=== PATIENT | female | born 1970 | race Hispanic/Latino ===

== ENCOUNTER 2024-07-17 17:39 | Inpatient (IN) | payer OTHER ==
--- OUTSIDE RECORDS SUMMARY | 2024-07-17 17:47 | XMS REPORT | Continuity of Care Document ---
Author Name Unknown Address [address] [facility] [address] [place] [address] [facility] thconnect Address [address] [facility] [address] [place] [address] Care Team Providers Care Cordwood Cutter Name Role Phone Alexis CONNORDanica Primary Care Physician EUNICE TRENT Attending Clinician Unavailable YOHANA MANDUJANO Attending Clinician Unavailab EUGENIO Crews Attending Clinician Unavailable 39, HOLTER Attending Clinician Unavailable ILANA MENENDEZ Attending Clinician Unavailable PADILLA RODRIGUEZ Attending Clinician Unavailable ALEX Attending Clinician Unavailable LAB39 Attending Clinician Unavailable LAB90 Attending Clinician Unavailable PROVIDER, CAMPAIGNS Attending Clinician Unavaila Garrett Gamez Attending Clinician Unavailable ANDRÉS POWERS Attending Clinician Unavailable KLEVER ELLER Attending Clinician Unavailabl KLEVER Leonardo Attending Clinician Unavailabl e Doctor Unassigned, [place] Attending Clinician U JULEE Hylton Attending Clinician Unavailable CHEYENNE BOJORQUEZ Attending Clinician Unavailable Cheyenne Bojorquez MD Attending Clinician [phone] Unknown, Attending Attending Clinician Unavailab Yanni Murry Attending Clinician U mady Gilbert RN, Hawk Bullock Attending Clinician Unavailable Viviane Troncoso RN Attending Clinician [phone] Radu PT, Natalie T Attending Clinician Unavail able Klever Eller MD Attending Clinician [phone] KLEVER ELLER Attending Clinician Unavaila tiffany Garcia OT, Mag A Attending Clinician Unavail able Klever Retana Attending Clinician [phone] RACQUEL WOODS Attending Clinician Un available Jaqueline Asif LVN Attending Clinician [phone] ROHIT NORIEGA Attending Clinician Unavailable Andrés Ni MD Attending Clinician + [phone] Rohit Noriega MD Attending Clinician [phone] WALESKA GALLARDO Attending Clinician Unavail able Vee Sanchez MD Attending Clinician [phone] Pgy2 Attending Clinician Unavailable Nyasia Poole MD Attending Clinician + [phone] NYASIA POOLE Attending Clinician Unavaila tiffany Pcp, Patient Does Not Have A Attending Clinician FELIPE MCMAHON Attending Clinician Unavailable Hawk Hendrix MD Attending Clinician + Felipe Mcmahon MD Attending Clinician [phone] Provider, [facility] Attending Clinician Unavailable Danny Betancur MD Attending Clinician [phone] Heike Whitt Attending Clinician [phone] Rona Guadarrama MD Attending Clinician Juany Zambrano RN Attending Clinician Unavailable [facility] Attending Clinician Unav ailable Yohana Cristobal Attending Clinician [phone] YOHANA YAP Attending Clinician Unavailable Garrett Rhodes Admitting Clinician Unavailable JULEE NINO Admitting Clinician Unavailable RACQUEL WOODS Admitting Clinician Un available ROHIT NORIEGA Admitting Clinician Unavailable Rohit Noriega MD Admitting Clinician HAWK HENDRIX Admitting Clinician Unav ailable Payers Payer Name Policy Type Policy Number Effective Date Expirati on Date Source [facility] ALIA-SEANAHI SILVER-C COPAY FOCUS 9 [id number] 2023 00:00:00 [employer] OUT OF NETWORK [id number] 2023 00:00:00 MEDICAID 365 VENDOR [id number] 2022 00:00:00 2022 00:00:00 Problems Condition Name Condition Details Condition Category Status Onset Date Resolution Date Last Treatment Date Treating Clinician Comments Source Headache Headache Disease Active 2023-10 00:00: 00 Alia Seybold - Externa l Fall Fall Disease Active 2023-10 00:00: 00 Alia Seybold - Externa l Confusion Confusion Disease Active 2023-10 00:00: 00 Alia Seybold - Externa l Type 2 diabetes mellitus without complicati on, with long-term current use of insulin (multi HCC) Type 2 diabetes mellitus without complicati on, with long-term current use of insulin (multi HCC) Disease Active 06-05 00:00: 00 Alia Seybold - Externa l 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 (multi HCC) 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 (multi HCC) Disease Active 06-05 00:00: 00 Alia Seybold - Externa l PAD (periphera l artery disease) PAD (periphera l artery disease) Disease Active 06-05 00:00: 00 Alia Seybold - Externa l Right sided weakness Right sided weakness Disease Active 03-30 00:00: 00 [facility] Decreased functional activity tolerance Decreased functional activity tolerance Disease Active 03-30 00:00: 00 [facility] Acute ischemic left ERA stroke Acute ischemic left ERA stroke Disease Active 03-03 00:00: 00 [facility] Received intravenou s tissue plasminoge n activator (tPA) in emergency department Received intravenou s tissue plasminoge n activator (tPA) in emergency department Disease Active 03-03 00:00: 00 [facility] Type 2 diabetes mellitus with hyperglyce suzi, with long-term current use of insulin Type 2 diabetes mellitus with hyperglyce suzi, with long-term current use of insulin Disease Recurre nce 03-03 00:00: 00 [facility] Diabetic neuropathy Diabetic neuropathy Disease Active [facility] Diabetes mellitus type 2 with neurologic al manifestat ions Diabetes mellitus type 2 with neurologic al manifestat ions Disease Active [facility] Allergies, Adverse Reactions, Alerts Allergy Name Allergy Type Status Severity Reaction(s) Onset Date Inactive Date Treating Clinician Comments Source No Known Allergie s DA Active U 05-28 00:00: 00 [facility] NO KNOWN ALLERGIE S Drug Class Active [facility] Social History Social Habit Start Date Stop Date Quantity Comments Source Sexual orientation K eloina Hart - External ASSERTION Not Alia Hart - External Gender identity [facility] History of Social function 2024-07-17 00:00:00 2024-07-17 00:00:00 Alia Hart - External Tobacco use and exposure 2024-06-05 00:00:00 2024-06-05 00:00:00 Smokeless tobacco non-user Alia Hart - External Sex 2022-12-28 21:31:51 2022-12-28 21:31:51 Female (finding) Alia Hart - External Exposure to SARS-CoV-2 (event) 2022-03-11 00:00:00 2022-03-21 15:59:00 Not sure [facility] Sex assigned at 1970 00:00:00 1970 00:00:00 Alia Hart - External Smoking Status Start Date Stop Date Source Never smoked tobacco Alia Hart - External Medications Ordered Medication Name Filled Medication Name Start Date Stop Date Current Medication? Ordering Clinician Indication Dosage Frequency Signature (SIG) Comments Components Source Insulin Aspart (NOVOLOG IJ) 2023-10 16:21: 41 Yes 10U QD Inject 10 units into the skin daily. Alia maza Aspirin 81 MG oral Capsule 2023-10 16:21: 41 Yes 539 81mg QD Take 81 mg by mouth daily. Indication s: Temporary Stroke Alia maza Rosuvastati n Calcium (Crestor) 20 MG oral Tablet 2023-10 00:00: 00 Yes 20mg QD Take 1 tablet (20 mg total) by mouth daily. Alia Cisneros l Insulin Aspart (NOVOLOG IJ) 06-28 08:35: 11 Yes 10U QD Inject 10 units into the skin daily. Alia maza Aspirin 81 MG oral Capsule 06-28 08:35: 11 Yes 539 81mg QD Take 81 mg by mouth daily. Indication s: Temporary Stroke Alia maza Insulin Aspart (NOVOLOG IJ) 06-14 13:31: 06 Yes 10U QD Inject 10 units into the skin daily. Alia maza Aspirin 81 MG oral Capsule 06-14 13:31: 06 Yes 539 81mg QD Take 81 mg by mouth daily. Indication s: Temporary Stroke Alia Cisneros l glyBURIDE 5 MG oral Tablet 06-10 00:00: 00 Yes [id number] 5mg QD Take 1 tablet (5 mg total) by mouth daily. Alia maza Aspirin 81 MG oral Capsule 06-05 10:37: 49 Yes 539 81mg QD Take 81 mg by mouth daily. Indication s: Temporary Stroke Alia Lozanoa l Insulin Aspart (NOVOLOG IJ) 06-05 10:20: 45 Yes 10U QD Inject 10 units into the skin daily. Alia maza Rosuvastati n Calcium (Crestor) 20 MG oral Tablet 06-05 00:00: 00 Yes 20mg QD Take 1 tablet (20 mg total) by mouth daily. Alia Lozanoa l Metformin HCl 1000 MG oral Tablet 24 00:00: 00 Yes 1000mg Q.5D Take 1 tablet (1,000 mg total) by mouth 2 times daily. Alia Hailey maza Cephalexin 500 MG oral Capsule 816 00:00: 00 06-05 00:00 :00 No Alia maza metformin 1,000 mg tablet 13 00:00: 00 Yes 1mg Andrés Christian glyBURIDE 2.5 MG oral Tablet 05-10 00:00: 00 Yes 2.5mg QD Take 1 tablet (2.5 mg total) by mouth daily. Alia maza Gabapentin 100 MG oral Capsule 05-09 00:00: 00 Yes 100mg [id number] 3D Take 1 capsule (100 mg total) by mouth 3 times daily. Alia maza glyburide 2.5 mg tablet 05-09 00:00: 00 Yes 1mg Andrés Christian metformin 1,000 mg tablet 05-09 00:00: 00 Yes 1mg Andrés Christian cephalexin 500 mg tablet 05-09 00:00: 00 Yes 1mg Andrés Christian gabapentin 100 mg capsule 05-09 00:00: 00 Yes 1mg Andrés Christian Ondansetron (ZOFRAN) 4 MG oral TABLET DISPERSIBLE 2022-10 00:00: 00 Yes 4mg Q4H Take 1 tablet (4 mg total) by mouth every 4 hours as needed. Alia Hailey maza TAKE 1 TABLET BY MOUTH EVERY 6 (SIX) HOURS NEEDED FOR PAIN (SCALE 4-6) FOR UP TO 7 DAYS 2022-10 00:00: 00 Yes Andrés Christian NAPROXEN 500MG 2022-10 00:00: 00 Yes Andrés Christian TAKE 1 TABLET BY MOUTH EVERY 4 HOURS NEEDED FOR NAUSEA AND VOMITING . 2022-10 00:00: 00 Yes Andrés Christian TAKE 1 CAPSULE 3 TIMES DAILY. 2022-10 00:00: 00 12-20 00:00 :00 No 100 Andrés Christian TAKE 1 TABLET BID NEEDED 2022-10 00:00: 00 12-20 00:00 :00 No 600 Andrés Christian TAKE 1 TABLET TWICE A DAY NEEDED 2022-10 00:00: 00 12-20 00:00 :00 No 500 Andrés Christian AMOXICILLIN 500MG 06-08 00:00: 00 Yes Andrés Christian APAP/CODEIN E 300-30MG 06-08 00:00: 00 Yes Andrés Christian PAXLOVID 924-101 3308-0 8-23 00:00: 00 Yes Andrés Christian ONDANSETRON 8MG 05-24 00:00: 00 Yes 8000 Andrés Christian nirmatrelvi r-ritonavir (PAXLOVID) 300 mg (150 mg x 2)-100 mg tablet 05-24 00:00: 00 Yes [id number] 3{tbl} Take 3 tablets by mouth in the morning and 3 tablets in the evening. [facility] ondansetron (ZOFRAN) 8 mg tablet 05-24 00:00: 00 Yes [id number] 8mg Take 1 tablet by mouth every 12 (twelve) hours. [facility] TAKE 3 TABLETS BY MOUTH IN THE MORNING AND 3 TABLETS IN THE EVENING. 12-22 00:00: 00 Yes Andrés Christian TAKE 1 TABLET DAILY. 05-27 00:00: 00 Yes Andrés Christian 10 units in the morning 8 units in the afternoon 05-27 00:00: 00 Yes 100 Andrés Christian 1 po qd 05-27 00:00: 00 Yes 30 Andrés Christian 1 po qd 05-27 00:00: 00 Yes 40 Andrés Christian pioglitazon e 30 mg tablet 03-09 00:00: 00 09-06 05:59 :00 No [id number] 30mg Take 1 tablet by mouth daily for 180 days. [facility] pioglitazon e (ACTOS) tablet 30 mg 03-08 14:00: 00 Yes 30mg 30 mg, Oral, DAILY, First dose on Mon03/08/22 at 0900, Until Discontinu ed, Routine [facility] insulin NPH (HUMULIN N) injection 12 Units 03-08 14:00: 00 Yes 12U 12 Units, Subcutaneo us, QAM, First dose (after last modificati on) on Mon03/08/22 at 0900, Until Discontinu ed, Routine [facility] aspirin 81 mg chewable tablet 03-08 00:00: 00 09-05 05:59 :00 No [id number] 81mg Take 1 tablet by mouth daily for 180 days. [facility] atorvastati n 40 mg tablet 03-08 00:00: 00 09-05 05:59 :00 No [id number] 40mg Take 1 tablet by mouth at bedtime for 180 days. [facility] metformin ER 500 mg 24 hr tablet 03-08 00:00: 00 09-05 05:59 :00 No [id number] 500mg Take 1 tablet by mouth daily with breakfast for 180 days. [facility] insulin NPH 100 unit/mL injection 03-08 00:00: 00 09-05 05:59 :00 No [id number] 10U inject 10 Units under the skin daily before breakfast for 180 days. [facility] insulin NPH (HUMULIN N) injection 10 Units 03-07 22:00: 00 Yes 10U 10 Units, Subcutaneo us, DAILY AT 1700, First dose (after last modificati on) on Mon03/07/22 at 1700, Until Discontinu ed, Routine [facility] insulin lispro (human) (HumaLOG U-100) injection 4 Units 03-07 22:00: 00 03-07 21:28 :00 No 4U 4 Units, Subcutaneo us, TID MEALS, 1 dose, First dose (after last modificati on) on Mon03/07/22 at 1700, Routine [facility] Sliding Scale Insulin - Lispro (HumaLOG) + Fsbg Testing 03-07 17:00: 00 Yes Subcutaneo us, TID MEALS+HS, First dose (after last modificati on) on 03/07/22 at 1200, Until Discontinu ed, Routine [facility] insulin NPH (HUMULIN N) injection 13 Units 03-07 14:00: 00 03-07 19:00 :06 No 13U 13 Units, Subcutaneo us, QAM, First dose (after last modificati on) on 03/07/22 at 0900, Until Discontinu ed, Routine [facility] insulin NPH (HUMULIN N) injection 12 Units 03-06 22:00: 00 03-07 19:00 :06 No 12U 12 Units, Subcutaneo us, DAILY AT 1700, First dose (after last modificati on) on 03/06/22 at 1700, Until Discontinu ed, Routine [facility] Sliding Scale Insulin - Lispro (HumaLOG) + Fsbg Testing 03-06 21:00: 00 03-07 16:30 :47 No Subcutaneo us, Q4H, First dose (after last modificati on) on 03/06/22 at 1600, Until Discontinu ed, Routine [facility] insulin NPH (HUMULIN N) injection 12 Units 03-06 14:00: 00 03-06 18:45 :35 No 12U 12 Units, Subcutaneo us, QAM, First dose (after last modificati on) on 03/06/22 at 0900, Until Discontinu ed, Routine [facility] insulin lispro (human) (HumaLOG U-100) injection 4 Units 03-05 17:00: 00 03-07 19:00 :06 No 4U 4 Units, Subcutaneo us, TID MEALS, First dose (after last modificati on) on 03/05/22 at 1200, Until Discontinu ed, Routine [facility] insulin NPH (HUMULIN N) injection 10 Units 03-05 14:00: 00 03-05 16:41 :44 No 10U 10 Units, Subcutaneo us, QAM, First dose on Mon03/05/22 at 0900, Until Discontinu ed, Routine [facility] atorvastati n (LIPITOR) tablet 40 mg 03-05 02:00: 00 Yes 40mg 40 mg, Oral, QHS, First dose (after last modificati on) on Mon03/04/22 at 2100, Until Discontinu ed, Routine [facility] heparin (porcine) injection 5,000 Units 03-05 01:00: 00 Yes 5000U 5,000 Units, Subcutaneo us, Q12H, First dose on Mon03/04/22 at 2000, Until Discontinu ed, Routine [facility] insulin NPH 100 unit/mL injection 03-05 00:00: 00 03-08 00:00 :00 No [id number] 10U inject 10 Units under the skin every morning and inject 8 Units under the skin every evening for 30 days. [facility] insulin lispro (human) (HumaLOG U-100) injection 3 Units 03-04 22:00: 00 03-05 16:41 :44 No 3U 3 Units, Subcutaneo us, TID MEALS, First dose (after last modificati on) on Mon03/04/22 at 1700, Until Discontinu ed, Routine [facility] insulin NPH (HUMULIN N) injection 8 Units 03-04 22:00: 00 03-05 16:41 :44 No 8U 8 Units, Subcutaneo us, DAILY AT 1700, First dose on Mon03/04/22 at 1700, Until Discontinu ed, Routine [facility] aspirin tablet 325 mg 03-04 18:00: 00 Yes 325mg 325 mg, Enteral, DAILY, First dose on Mon03/04/22 at 1300, Until Discontinu ed, Routine [facility] insulin glarginejoaquimrec.anlog (LANTUS U-100 INSULIN SC) 03-04 16:31: 15 03-04 00:00 :00 No 10U inject 10 Units under the skin 2 (two) times daily. [facility] GABAPENTIN ORAL 03-04 16:31: 15 03-04 00:00 :00 No 100mg Take 100 mg by mouth 2 (two) times daily. [facility] QUEtiapine (SEROQUEL) tablet 25 mg 03-04 14:09: 26 Yes 25mg 25 mg, Oral, BIDPRN, Starting on Mon03/04/22 at 0909, Until Discontinu ed, Routine, anxiety and agitation [facility] cyclobenzap rine (FLEXERIL) tablet 5 mg 03-04 13:53: 06 Yes 5mg 5 mg, Oral, TIDPRN, Starting on Mon03/04/22 at 0853, Until Discontinu ed, Routine, Muscle Spasms [facility] ondansetron (ZOFRAN (PF)) injection 4 mg 03-04 04:37: 00 Yes 4mg 4 mg, Slow IV Push, Q6HPRN, Nausea and Vomiting (N/V), Starting on Mon03/03/22 at 2337
Do ses of ondansetro n 16 mg and above need to be administer ed via IV piggyback. For Dose >=24mg ECG monitoring is advisable.
[facility] LORazepam (ATIVAN) injection 1 mg 03-04 03:15: 00 03-04 04:37 :00 No 1mg 1 mg, Slow IV Push, ONCE, 1 dose, On Mon03/03/22 at 2215, Routine [facility] atorvastati n (LIPITOR) tablet 20 mg 03-04 02:00: 00 03-04 17:52 :59 No 20mg 20 mg, Oral, QHS, First dose on Mon03/03/22 at 2100, Until Discontinu ed, Routine [facility] insulin NPH 100 unit/mL injection 03-04 00:00: 00 03-08 00:00 :00 No [id number] 8U inject 8 Units under the skin every evening for 30 days. [facility] metFORMIN 500 mg tablet 03-04 00:00: 00 03-08 00:00 :00 No [id number] 500mg Take 1 tablet by mouth 2 (two) times daily with meals for 30 days. [facility] pioglitazon e 15 mg tablet 03-04 00:00: 00 03-08 00:00 :00 No [id number] 30mg Take 2 tablets by mouth daily for 30 days. [facility] atorvastati n 40 mg tablet 03-04 00:00: 00 03-08 00:00 :00 No [id number] 40mg Take 1 tablet by mouth at bedtime for 30 days. [facility] aspirin 81 mg chewable tablet 03-04 00:00: 00 03-08 00:00 :00 No [id number] 81mg Take 1 tablet by mouth daily for 30 days. [facility] insulin glargine (LANTUS U-100) injection 15 Units 03-03 22:30: 00 03-04 18:47 :42 No 15U 15 Units, Subcutaneo us, Q24H, First dose on Mon03/03/22 at 1730, Until Discontinu ed, Routine [facility] insulin lispro (human) (HumaLOG U-100) injection 5 Units 03-03 22:00: 00 03-04 18:47 :42 No 5U 5 Units, Subcutaneo us, TID MEALS, First dose on Mon03/03/22 at 1700, Until Discontinu ed, Routine [facility] sulfur hexafluorid e microsphr (LUMASON) injection 5 mL 03-03 21:45: 00 03-03 21:45 :00 No [id number] 5mL 5 mL, Intravenou s, ONCE, 1 dose, On Mon03/03/22 at 1645, Routine
cleaning team member approving Restricted medication : MONO REDDY [facility] Saline Bubble Study 03-03 21:42: 27 Yes [id number] 6mL 6 mL, Injection, SEE-INSTRU CTIONS, Starting on Alyssia 03/03/22 at 1642, Until Discontinu ed, Routine [facility] labetaloL (NORMODYNE) injection 10 mg 03-03 19:15: 00 03-03 18:01 :00 No 10mg 10 mg, Slow IV Push, ONCE, 1 dose, On Alyssia 03/03/22 at 1415, Routine [facility] niCARdipine (CARDENE I.V.) 40 mg in NaCL 200 mL (RTU) infusion 03-03 19:00: 32 Yes 2.5mg/h 2.5-15 mg/hr (12.5-75 mL/hr), IV Infusion, TITRATE, < 180 systolic and < 105 diastolic, Starting on Alyssia 03/03/22 at 1400
In itiate infusion at 2.5 mg/hr.&nbs p; Ti trate by 2.5 mg/hr every 5 minutes to 15 minutes as needed to achieve and maintain goal blood pressure. Maximum dose = 15 mg/hr. If goal not maintained at maximum allowed dose, contact prescriber .
[facility] NaCl 0.9% (NS) bolus infusion 1,000 mL 03-03 18:45: 00 03-03 19:02 :00 No 1000mL at 999 mL/hr, 1,000 mL, IV Infusion, ONCE, 1 dose, On Alyssia 03/03/22 at 1345, STAT [facility] alteplase (ACTIVASE) injection 6.25 mg 03-03 18:45: 00 03-03 18:05 :00 No .09mg/k g 6.25 mg (rounded from 6.246 mg = 0.09 mg/kg ?69.4 kg), Intravenou s, ONCE, 1 dose, On Alyssia 03/03/22 at 1345, JB
In dication: ACUTE ISCHEMIC STROKE
STROKE Activation : ER will mix DO NOT SEND [facility] NaCl 0.9% (NS) 50 mL infusion 03-03 18:30: 00 03-03 19:02 :00 No .81mL/k g/h at 56.21 mL/hr, IV Infusion, ONCE, 1 dose, On Alyssia 03/03/22 at 1330, Routine
Maury the 50 mL NS bag with end of the alteplase infusion tubing when alteplase vial is empty. Continue the infusion at the same rate.
[facility] iopamidol (ISOVUE 370-500 mL) injection 70 mL 03-03 18:15: 00 03-03 18:15 :00 No [id number] 70mL 70 mL, Intravenou s, ONCE, 1 dose, On Alyssia 03/03/22 at 1315, Routine [facility] NaCl 0.9% (NS) 1000 mL + KCL 20 mEq 03-03 18:00: 00 Yes IV Infusion, at 75 mL/hr, CONTINUOUS , Starting on Alyssia 03/03/22 at 1300, Until Discontinu ed, Routine [facility] dextrose 10% (D10W) bolus infusion 250 mL 03-03 17:57: 54 Yes 250mL 250 mL, IV Infusion, PRN - SEE INSTRUCTIO NS, BG < 60, Starting on Alyssia 03/03/22 at 1257
De xtrose 10% 250 mL bag contains:& nbsp;10 gm = 100 mL 20 gm = 200 mL 25 gm = 250 mL (whole bag) The maximum rate at which dextrose can be infused without producing glycosuria is 0.5 g/kg/hour. &nbs p;BUD: If wrapper is open bag is good for 30 days at room temperatur e. <b r> [facility] glucagon (GLUCAGEN DIAGNOSTIC KIT) injection 1 mg 03-03 17:57: 50 Yes 1mg 1 mg, Intramuscu lar, PRN, Starting on Alyssia 03/03/22 at 1257, Until Discontinu ed, JB, Blood Glucose < or = 70 mg/dL and patient is unable to swallow or has mental changes. [facility] acetaminoph en (TYLENOL) tablet 650 mg 03-03 17:54: 12 Yes 650mg 650 mg, Oral, Q6HPRN, Starting on Mon03/03/22 at 1254, Until Discontinu ed, Routine, Pain (scale 1-3), Pain (scale 4-6) [facility] alteplase (ACTIVASE) injection 56.21 mg 03-03 17:45: 00 03-03 19:04 :00 No .81mg/k g 56.21 mg (rounded from 56.214 mg = 0.81 mg/kg ?69.4 kg), Intravenou s, ONCE, 1 dose, On Alyssia 03/03/22 at 1245, STAT
In dication: ACUTE ISCHEMIC STROKE
STROKE Activation : ER will mix DO NOT SEND [facility] NaCl 0.9% (NS) injection 5 mL 03-03 17:36: 01 Yes 5mL 5 mL, Slow IV Push, PRN - SEE INSTRUCTIO NS, Starting on Alyssia 03/03/22 at 1236, Until Discontinu ed, 10 mL [facility] NaCl 0.9% (NS) injection 5 mL 03-03 16:48: 50 Yes 5mL 5 mL, Slow IV Push, PRN - SEE INSTRUCTIO NS, Starting on Alyssia 03/03/22 at 1148, Until Discontinu ed, 10 mL [facility] ibuprofen (IBU) tablet 600 mg 02-17 21:30: 00 02-17 21:35 :00 No 600mg [facility] TAKE 1 TABLET BY MOUTH THE NIGHT BEFORE THE PROCEDURE THEN TAKE SECOND TABLET THE MORNING OF PROCEDURE 02-17 00:00: 00 Yes Andrés Christian TAKE 1 TABLET BY MOUTH NOW A ONE TIME DOSE 02-17 00:00: 00 Yes Andrés Thorne Gino TAKE 1 TABLET THE NIGHT BEFORE THE PROCEDURE AND SECOND TABLET THE MORNING OF THE PROCEDURE 02-17 00:00: 00 Yes Andrés Fadumo Gino ibuprofen 600 mg tablet 02-17 00:00: 00 03-04 00:00 :00 No 600mg Take 1 tablet by mouth as needed for Pain (scale 1-3). Take 1 tablet the night before the procedure. Take second tablet the morning of procedure [facility] diazePAM (VALIUM) 5 mg tablet 02-17 00:00: 00 02-18 04:59 :00 No 5mg Take 1 tablet by mouth once now for 1 dose. [facility] miSOPROStoL (CYTOTEC) 200 mcg tablet 02-17 00:00: 00 02-18 04:59 :00 No 400ug Take 2 tablets by mouth once now for 1 dose. [facility] Dose Unknown 02-10 00:00: 00 Yes Andrés Christian Dose Unknown 02-10 00:00: 00 Yes Andrés Christian Dose Unknown 02-10 00:00: 00 Yes Andrés Christian Dose Unknown 02-10 00:00: 00 Yes Andrés Christian Dose Unknown 02-10 00:00: 00 Yes Andrés Christian TAKE 1 CAPSULE BY MOUTH TWICE DAILY 02-03 00:00: 00 Yes Andrés Christian cephALEXin (KEFLEX) 500 mg capsule 02-03 00:00: 00 03-04 00:00 :00 No [id number] 500mg Take 1 capsule by mouth 2 (two) times daily. [facility] GABAPENTIN ORAL 01-13 15:36: 09 Yes 100mg Take 100 mg by mouth 2 (two) times daily. [facility] insulin glargine,joaquim mirec.anlog (LANTUS U-100 INSULIN SC) 01-13 15:35: 24 Yes 10U inject 10 Units under the skin 2 (two) times daily. [facility] blood sugar diagnostic (ONETOUCH VERIO) strip 01-13 00:00: 00 Yes [id number] Test 3 daily for diagnosis code E11.9 Use as directed. May substitute any brand necessary for patient or preferred by insurance. [facility] proMETHazin e 25 mg tablet 01-13 00:00: 00 Yes [id number] 25mg Take 1 tablet by mouth every 4 (four) hours as needed for Nausea and Vomiting (N/V). [facility] blood sugar diagnostic (ONETOUCH VERIO) strip 4-14 00:00: 00 Yes [id number] Test 3 daily for diagnosis code E11.9 Use as directed. May substitute any brand necessary for patient or preferred by insurance. [facility] gabapentin 100 mg capsule 11-27 00:00: 00 Yes 1mg Andrés Christian Dose Unknown 2018-10 00:00: 00 Yes Andrés Christian citalopram 10 mg tablet 2018-10 00:00: 00 Yes 1mg Andrés Christian gabapentin 100 mg capsule 2018-10 00:00: 00 Yes 1mg Andrés Christian metformin 1,000 mg tablet 2018-10 00:00: 00 Yes 1mg Andrés Christian Iron (ferrous sulfate) 325 mg (65 mg iron) tablet 2018-10 00:00: 00 Yes 1(65 mg iron) Andrés Christian cholecalcif hector (vitamin D3) 1,250 mcg (50,000 unit) tablet 2018-10 00:00: 00 Yes 1(50,00 0 unit) Andrés Christian Bactrim DS 800 mg-160 mg tablet 04-08 00:00: 00 Yes 1mg Andrés Christian Vital Signs Vital Name Observation Time Observation Value Comments S ource Systolic blood pressure 2024-07-17 22:13:00 152 mm[Hg] Alia aguilera - External Diastolic blood pressure 2024-07-17 22:13:00 96 mm[Hg] Alia aguilera - External Heart rate 2024-07-17 22:13:00 96 /min Scotty Hart - External Oxygen saturation in Arterial blood by Pulse oximetry 2024-07-17 22:13:00 97 /min Alia aguilera - External Body temperature 2024-07-17 21:16:00 36.44 Doreen Alia Hart - External Respiratory rate 2024-07-17 21:16:00 16 /min Alia Hart - External Body height 2024-07-17 21:16:00 172.7 cm Eva ey Seybold - External Body weight 2024-07-17 21:16:00 72.122 kg Eva ey Seybold - External BMI 2024-07-17 21:16:00 24.18 kg/m2 Eva ey Seybold - External Body height 2024-06-28 13:34:00 172.7 cm Eva ey Seybold - External Body weight 2024-06-28 13:34:00 67.586 kg Eva ey Seybold - External BMI 2024-06-28 13:34:00 22.66 kg/m2 Eva ey Seybold - External Systolic blood pressure 2024-06-05 15:16:00 102 mm[Hg] Alia Seybo ld - External Diastolic blood pressure 2024-06-05 15:16:00 68 mm[Hg] Alia Seybo ld - External Heart rate 2024-06-05 15:16:00 90 /min Kelse y Seybold - External Body temperature 2024-06-05 15:16:00 36.89 Doreen Alia Seybold - External Respiratory rate 2024-06-05 15:16:00 18 /min Alia Seybold - External Body height 2024-06-05 15:16:00 172.7 cm Eva ey Seybold - External Body weight 2024-06-05 15:16:00 67.756 kg Eva ey Seybold - External BMI 2024-06-05 15:16:00 22.71 kg/m2 Eva ey Seybold - External Oxygen saturation in Arterial blood by Pulse oximetry 2024-06-05 15:16:00 98 /min Alia Seybo ld - External Systolic blood pressure 2023-05-25 00:21:00 132 mm[Hg] [facility] Diastolic blood pressure 2023-05-25 00:21:00 86 mm[Hg] [facility] Heart rate 2023-05-25 00:20:00 108 /min [facility] Body temperature 2023-05-25 00:20:00 38.11 Doreen [facility] Respiratory rate 2023-05-25 00:20:00 23 /min [facility] Body height 2023-05-25 00:20:00 172.7 cm [facility] Body weight 2023-05-25 00:20:00 69.446 kg [facility] BMI 2023-05-25 00:20:00 23.28 kg/m2 [facility] Oxygen saturation in Arterial blood by Pulse oximetry 2023-05-25 00:20:00 97 /min [facility] Systolic blood pressure 2022-03-08 21:01:00 143 mm[Hg] [facility] Diastolic blood pressure 2022-03-08 21:01:00 88 mm[Hg] [facility] Heart rate 2022-03-08 21:01:00 87 /min [facility] Body temperature 2022-03-08 21:01:00 36.39 Doreen [facility] Respiratory rate 2022-03-08 21:01:00 18 /min [facility] Oxygen saturation in Arterial blood by Pulse oximetry 2022-03-08 21:01:00 98 /min [facility] Body weight 2022-03-04 01:00:00 72 kg [facility] BMI 2022-03-04 01:00:00 25.62 kg/m2 [facility] Body height 2022-03-03 21:42:00 167.6 cm [facility] Systolic blood pressure 2022-02-17 19:48:00 110 mm[Hg] [facility] Diastolic blood pressure 2022-02-17 19:48:00 66 mm[Hg] [facility] Heart rate 2022-02-17 19:48:00 80 /min [facility] Body temperature 2022-02-17 19:48:00 36 Doreen [facility] Body height 2022-02-17 19:48:00 172.7 cm [facility] Body weight 2022-02-17 19:48:00 69.718 kg [facility] BMI 2022-02-17 19:48:00 23.37 kg/m2 [facility] Body Temperature 2024-05-09 10:47:00 98.20 degrees Andrés F [place] Heart Rate 2024-05-09 10:47:00 100.00 /min Step hen F Gino Respiratory Rate 2024-05-09 10:47:00 18.00 /min Andrés F Gino BP Systolic 2024-05-09 10:47:00 86 mm[Hg] Step hen F Gino BP Diastolic 2024-05-09 10:47:00 57 mm[Hg] Keon phen F Gino Weight Measured 2024-05-09 10:47:00 156.00 pounds Andrés F Gino Height Measured 2024-05-09 10:47:00 64.00 inches Andrés F Gino BP Systolic 2023-09-06 16:59:00 112 mm[Hg] Step hen F Gino BP Diastolic 2023-09-06 16:59:00 71 mm[Hg] Keon phen F Gino Weight Measured 2023-09-06 16:59:00 156.00 pounds Andrés F Gino Height Measured 2023-09-06 16:59:00 64.00 inches Andrés F Gino Body Temperature 2023-09-06 16:59:00 98.30 degrees Andrés F Gino Heart Rate 2023-09-06 16:59:00 83.00 /min Guerita en F Gino Respiratory Rate 2023-09-06 16:59:00 19.00 /min Andrés F Gino BP Systolic 2023-08-28 09:09:00 140 mm[Hg] Step hen F Gino BP Diastolic 2023-08-28 09:09:00 85 mm[Hg] Keon phen F Gino Weight Measured 2023-08-28 09:09:00 157.20 pounds Andrés F Gino Height Measured 2023-08-28 09:09:00 64.00 inches Andrés F Gino Body Temperature 2023-08-28 09:09:00 98.20 degrees Andrés F Gino Heart Rate 2023-08-28 09:09:00 100.00 /min Step hen F Gino Respiratory Rate 2023-08-28 09:09:00 19.00 /min Andrés F Gino BP Systolic 2022-05-27 17:53:00 146 mm[Hg] Step hen F Gino BP Diastolic 2022-05-27 17:53:00 91 mm[Hg] Keon phen F Gino Weight Measured 2022-05-27 17:53:00 156.80 pounds Andrés F Gino Height Measured 2022-05-27 17:53:00 64.57 inches Andrés F Gino Body Temperature 2022-05-27 17:53:00 98.30 degrees Andrés F Gino Heart Rate 2022-05-27 17:53:00 92.00 /min Guerita en F Gino Respiratory Rate 2022-05-27 17:53:00 18.00 /min Andrés F Gino BP Systolic 2022-02-10 13:18:00 122 mm[Hg] Step hen F Gino BP Diastolic 2022-02-10 13:18:00 78 mm[Hg] Keon phen F Gino Weight Measured 2022-02-10 13:18:00 156.20 pounds Andrés F Gino Height Measured 2022-02-10 13:18:00 64.57 inches Andrés F Gino Body Temperature 2022-02-10 13:18:00 98.00 degrees Andrés F Gino Heart Rate 2022-02-10 13:18:00 80.00 /min Guerita en F Gino Respiratory Rate 2022-02-10 13:18:00 16.00 /min Andrés F Gino BP Systolic 2019-08-26 12:33:00 104 mm[Hg] Step hen F Gino BP Diastolic 2019-08-26 12:33:00 69 mm[Hg] Keon phen F Gino Weight Measured 2019-08-26 12:33:00 158.60 pounds Andrés F Gino Height Measured 2019-08-26 12:33:00 64.57 inches Andrés F Gino Body Temperature 2019-08-26 12:33:00 98.40 degrees Andrés F Gino Heart Rate 2019-08-26 12:33:00 101.00 /min Step hen F Gino Respiratory Rate 2019-08-26 12:33:00 18.00 /min Andrés F Gino Heart Rate 2019-04-08 13:30:00 95.00 /min Guerita en F Gino Respiratory Rate 2019-04-08 13:30:00 16.00 /min Andrés F Gino BP Systolic 2019-04-08 13:30:00 96 mm[Hg] Step hen F Gino BP Diastolic 2019-04-08 13:30:00 70 mm[Hg] Keon phen F Gino Weight Measured 2019-04-08 13:30:00 159.80 pounds Andrés F Gino Height Measured 2019-04-08 13:30:00 64.57 inches Andrés Christian Body Temperature 2019-04-08 13:30:00 97.50 degrees Andrés Christian Procedures Procedure Date / Time Performed Performing Clinician Source [id number] 2024-03-22 00:00:00 ZAMHE [facility] [id number] 2024-03-21 00:00:00 LAWBR.01 [facility] REFERRAL- REQUEST/RESPONSE 2023-09-07 06:01:00 Doctor Unassigned, [place] [facility] POCT SARS-COV-2 ANTIGEN (BINAX NOW) 2023-05-25 00:02:00 Cheyenne Bojorquez [facility] INSURANCE CORRESPONDENCE 2022-04-01 05:01:00 Doc tor Unassigned, [place] [facility] POCT GLUCOSE (AUTOMATED) 2022-03-08 17:12:00 Real Noriega [facility] POCT GLUCOSE (AUTOMATED) 2022-03-08 12:37:00 Real Noriega [facility] POCT GLUCOSE (AUTOMATED) 2022-03-08 02:11:00 Real Noriega [facility] POCT GLUCOSE (AUTOMATED) 2022-03-08 00:52:00 Real Noriega [facility] POCT GLUCOSE (AUTOMATED) 2022-03-07 20:56:00 Real Noriega [facility] POCT GLUCOSE (AUTOMATED) 2022-03-07 17:05:00 Real Noriega [facility] POCT GLUCOSE (AUTOMATED) 2022-03-07 12:19:00 Real Noriega [facility] POCT GLUCOSE (AUTOMATED) 2022-03-07 09:07:00 Real Noriega [facility] POCT GLUCOSE (AUTOMATED) 2022-03-07 05:08:00 Real Noriega [facility] POCT GLUCOSE (AUTOMATED) 2022-03-07 02:11:00 Real Noriega [facility] POCT GLUCOSE (AUTOMATED) 2022-03-06 22:21:00 Real Noriega [facility] POCT GLUCOSE (AUTOMATED) 2022-03-06 16:49:00 Dabi, Real dubose [facility] POCT GLUCOSE (AUTOMATED) 2022-03-06 14:28:00 Dabi, Real gracy [facility] POCT GLUCOSE (AUTOMATED) 2022-03-06 04:42:00 Dabi, Real gracy [facility] POCT GLUCOSE (AUTOMATED) 2022-03-06 01:53:00 Dabi, Real gracy [facility] POCT GLUCOSE (AUTOMATED) 2022-03-05 20:32:00 Dabi, Real gracy [facility] POCT GLUCOSE (AUTOMATED) 2022-03-05 12:37:00 Dabi, Real gracy [facility] POCT GLUCOSE (AUTOMATED) 2022-03-05 01:48:00 Dabi, Real gracy [facility] POCT GLUCOSE (AUTOMATED) 2022-03-04 22:54:00 Dabi, [facility] gracy [facility] CBC WITHOUT DIFF 2022-03-04 20:05:00 Wild Kessler [facility] POCT GLUCOSE (AUTOMATED) 2022-03-04 19:55:00 Dabi, Real gracy [facility] POCT GLUCOSE (AUTOMATED) 2022-03-04 15:26:00 Dabi, [facility] gracy [facility] POCT GLUCOSE (AUTOMATED) 2022-03-04 12:57:00 Dabi, Real gracy [facility] MAGNESIUM 2022-03-04 09:14:00 Amando Lyons [facility] BASIC METABOLIC PANEL (NA, K, CL, CO2, GLUCOSE, BUN, CREATININE, CA) 2022-03-04 09:14:00 Amando Lyons [facility] CBC WITH DIFF 2022-03-04 09:14:00 Amando Lyons [facility] MR STROKE BRAIN WO CONTRAST 2022-03-04 05:36:59 Karen Kessler [facility] MRSA / MSSA SCREEN BY PCR, JOHNNY 2022-03-04 01:09:00 Karen Kessler [facility] POCT GLUCOSE (AUTOMATED) 2022-03-03 22:56:00 Real Noriega [facility] TRANSTHORACIC ECHO (TTE) COMPLETE W/ CONTRAST 2022-03-03 21:41:23 Karen Kessler [facility] URINALYSIS 2022-03-03 17:58:00 Andrés Ni [facility] HB ECG ROUTINE & RHYTHM STRIP 2022-03-03 17:16:52 Andrés Ni [facility] CT STROKE ANGIOGRAM HEAD 2022-03-03 17:12:00 Andrés Ni [facility] CT STROKE ANGIOGRAM NECK 2022-03-03 17:12:00 Andrés Ni [facility] CT STROKE HEAD WO CONTRAST 2022-03-03 17:11:12 Andérs Ni [facility] TROPONIN I 2022-03-03 16:57:00 Andrés Ni [facility] BASIC METABOLIC PANEL (NA, K, CL, CO2, GLUCOSE, BUN, CREATININE, CA) 2022-03-03 16:57:00 Andrés Ni [facility] LIPID PANEL (96482)(TOTAL CHOLESTEROL, TRIGLYCERIDES, HDL) 2022-03-03 16:57:00 Karen Kessler [facility] CBC WITHOUT DIFF 2022-03-03 16:57:00 Andrés Ni [facility] GLYCOSYLATED HEMOGLOBIN (A1C) 2022-03-03 16:57:00 Karen Kessler [facility] PROTHROMBIN TIME / INR 2022-03-03 16:57:00 Lashawn Ni [facility] ACTIVATED PARTIAL THRMPLAS EKTA 2022-03-03 16:57:00 Andrés Ni [facility] CONSENT/REFUSAL FOR DIAGNOSIS AND TREATMENT 2022-03-03 16:52:50 Doctor Unassigned, [place] [facility] POCT GLUCOSE (AUTOMATED) 2022-03-03 16:44:00 Doc tor Unassigned, [place] [facility] CBC WITH DIFF 2022-02-17 20:38:00 Vee Sanchez [facility] GLYCOSYLATED HEMOGLOBIN (A1C) 2022-02-17 20:38:00 Vee Sanchez [facility] GC & CHLAMYDIA AMPLIFIED ASSAY 2022-02-17 20:28:00 Vee Sanchez [facility] HIGH RISK HPV-THIN PREP 2022-02-17 20:28:00 Ayush Sanchez [facility] TRICHOMONAS AMPLIFIED ASSAY 2022-02-17 20:28:00 Vee Sanchez [facility] PAP SMEAR-LIQUID BASED-CP 2022-02-17 20:28:00 Vee Sanchez [facility] Plan of Care Planned Activity Planned Date Details Comments Source Encounters Start Date/Time End Date/Time Encounter Type Admission Type Attending Clinicians Care Facility Care Department Encounter ID Source 2021-08-02 19:30:27 Emergency [facility] [id number] [facility] 2021-07-31 16:55:58 Emergency [facility] [id number] [facility] 2024-07-19 10:40:00 2024-07-19 10:40:00 Outpatient [facility]UNICE TRENT [id number] [facility] 2024-07-17 16:30:00 2024-07-17 16:30:00 Outpatient YOHANA MANDUJANO [id number] [facility] 2024-07-05 14:00:00 2024-07-05 14:00:00 Outpatient EUGENIO HOLCOMB [id number] [facility] 2024-07-05 09:00:00 2024-07-05 09:00:00 Outpatient REY Fleming [id number] [facility] 2024-07-05 08:45:00 2024-07-05 08:45:00 Outpatient ILANA MENENDEZ [id number] [facility] 2024-07-03 10:00:00 2024-07-03 10:00:00 Outpatient PADILLA RODRIGUEZ [id number] [facility] 2024-06-28 08:00:00 2024-06-28 08:00:00 Outpatient EUINCE TRENT [id number] [facility] 2024-06-17 00:00:00 2024-06-17 00:00:00 Outpatient EUNICE TRENT ALIA JONES [id number] [facility] 2024-06-14 13:20:00 2024-06-14 13:20:00 Outpatient EUNICE TRENT ALIA JON[facility] [id number] [facility] 2024-06-14 13:15:00 2024-06-14 13:15:00 Outpatient ALIA JONES [id number] [facility] 2024-06-13 00:00:00 2024-06-13 00:00:00 Outpatient EUNICE TRENT ALIA JON[facility] [id number] [facility] 2024-06-10 00:00:00 2024-06-10 00:00:00 Outpatient NAZIAYOHANA [id number] [facility] 2024-06-08 00:00:00 2024-06-08 00:00:00 Outpatient YOHANA MANDUJANO ALIA [facility] [id number] [facility] 2024-06-06 09:45:00 2024-06-06 09:45:00 Outpatient ALIA JONES [id number] [facility] 2024-06-06 00:00:00 2024-06-06 00:00:00 Outpatient TREAnastasiia JONES [id number] [facility] 2024-06-05 17:20:00 2024-06-05 17:20:00 Outpatient LAB39 ALIA JONES [id number] [facility] 2024-06-05 15:30:00 2024-06-05 15:30:00 Outpatient 39, HOLTER ALIA JONES [id number] Alia Seybold 2024-06-05 15:15:00 2024-06-05 15:15:00 Outpatient ILANA MENENDEZ [id number] [facility] 2024-06-05 11:00:00 2024-06-05 11:00:00 Outpatient LAB90 ALIA JONES [id number] [facility] 2024-06-05 10:00:00 2024-06-05 10:00:00 Outpatient YOHANA MANDUJANO ALIA JONES [id number] [facility]ia [facility] 2024-05-09 10:50:45 2024-05-09 10:50:45 Outpatient SFA [facility] [id number] Andrés Christian 2024-05-09 00:00:00 2024-05-09 00:00:00 Outpatient Visit [facility] [id number] Andrés Christian 2024-04-11 00:00:00 2024-04-11 00:00:00 Outpatient PROVIDERHARIKA [id number] [facility] 2024-03-13 00:15:00 2024-04-10 18:45:00 Inpatient Garrett Amato [facility] [id number] [facility] 2023-10-10 14:20:00 2023-10-10 14:20:00 Outpatient ANDRÉS POWERS [id number] [facility] 2023-10-05 16:00:00 2023-10-05 16:00:00 Outpatient KLEVER MARCH CRAIG [facility] [id number] [facility] 2023-10-05 00:00:00 2023-10-05 00:00:00 Outpatient ANDRÉS POWERS [id number] [facility] 2023-09-07 00:00:00 2023-09-07 00:00:00 Orders Only Doctor Unassigned, [place] [facility] 1.2.840.114 350.1.13.10 4.2.7.2.686 [id number] [facility] 2023-09-06 16:52:21 2023-09-06 16:52:21 Outpatient SFA [facility] [id number] Andrés Christian 2023-08-28 12:44:00 2023-08-28 15:42:00 Emergency X JULEE NINO [facility] [id number] [facility] 2023-08-28 09:01:56 2023-08-28 09:01:56 Outpatient SFA [facility] [id number] Andrés Christian 2023-05-24 19:00:00 2023-05-24 20:03:34 Outpatient R CHEYENNE BOJORQUEZ [facility] [id number] [facility] 2023-05-24 19:00:00 2023-05-24 19:20:00 Urgent Care Cheyenne Bojorquez Unknown, Attending [facility] 1.2840.114 350.1.13.10 4.2.7.2.686 [id number] [facility] 2022-10-04 00:00:00 2022-10-04 00:00:00 Telephone Yanni Payan 1.2840.114 350.1.13.10 4.2.7.2.686 [id number] [facility] 2022-06-23 00:00:00 2022-06-23 00:00:00 Telephone Hwak Gilbert [facility] 1.0.114 350.1.13.10 4.2.7.2.686 [id number] [facility] 2022-05-03 00:00:00 2022-05-03 00:00:00 Patient Outreach Viviane Troncoso [facility] 1.0.114 350.1.13.10 4.2.7.2.686 [id number] [facility] 2022-04-01 00:00:00 2022-04-01 00:00:00 Orders Only Doctor Unassigned, [place] [facility] 1.2840.114 350.1.13.10 4.2.7.2.686 [id number] [facility] 2022-03-28 14:30:00 2022-03-28 15:04:52 Outpatient KLEVER MARCH [facility] [id number] [facility] 2022-03-28 14:30:00 2022-03-28 15:04:52 Ancillary Visit Natalie Lovelace Craig L [facility] 1..840.114 350.1.13.10 4.2.7.2.686 [id number] [facility] 2022-03-28 13:00:00 2022-03-28 15:00:04 Outpatient KLEVER MARCH [facility] [id number] [facility] 2022-03-28 13:00:00 2022-03-28 15:00:04 Ancillary Visit Mag Garcia Caitlyn A [facility] 1..840.114 350.1.13.10 4.2.7.2.686 [id number] [facility] 2022-03-28 13:00:00 2022-03-28 13:00:00 Outpatient KLEVER MARCH [facility] [id number] [facility] 2022-03-21 15:59:56 2022-03-21 23:59:00 Outpatient RACQUEL IBRAHIM [facility] [id number] [facility] 2022-03-18 00:00:00 2022-03-18 00:00:00 Patient Outreach Viviane Troncoso 1..840.114 350.1.13.10 4.2.7.2.686 [id number] [facility] 2022-03-09 00:00:00 2022-03-09 00:00:00 Transition of Care Jaqueline Asif 1..840.114 350.1.13.10 4.2.7.2.686 [id number] [facility] 2022-03-03 11:48:00 2022-03-08 18:24:00 Inpatient X ROHIT NORIEGA [facility] SHA[facility] [id number] [facility] 2022-03-03 11:48:00 2022-03-08 18:24:00 Hospital Encounter Morrical, [facility] 1.2.840.114 350.1.13.10 4.2.7.2.686 [id number] [facility] 2022-03-03 09:45:00 2022-03-03 09:45:00 Outpatient R WALESKA GALLARDO [facility] [id number] [facility] 2022-03-01 00:00:00 2022-03-01 00:00:00 Telephone [facility] 1.2.840.114 350.1.13.10 4.2.7.2.686 [id number] [facility] 2022-02-21 00:00:00 2022-02-21 00:00:00 [facility] 1.2.840.114 350.1.13.10 4.2.7.2.686 [id number] [facility] 2022-02-17 13:30:00 2022-02-17 16:48:49 Office Visit Pgy2 Nyasia Poole [facility] 1.2.840.114 350.1.13.10 4.2.7.2.686 [id number] [facility] 2022-02-17 13:30:00 2022-02-17 16:48:49 Outpatient R NYASIA POOLE [facility] [id number] [facility] 2022-02-17 13:00:00 2022-02-17 16:48:43 Outpatient R HAYDER [facility] [id number] [facility] 2022-02-17 00:00:00 2022-02-17 00:00:00 Orders Only Doctor Unassigned, [place] [facility] 1.114 350.1.13.10 4.2.7.2.686 [id number] [facility] 2022-02-04 00:00:00 2022-02-04 00:00:00 Telephone Pcp, Patient Does Not Have A [facility] 1.114 350.1.13.10 4.2.7.2.686 [id number] [facility] 2022-02-03 12:58:00 2022-02-03 21:31:00 Emergency FELIPE CESAR [facility] [id number] [facility] 2022-02-03 12:58:00 2022-02-03 21:31:00 Emergency Hawk Hendrix William [facility] 1..114 350.1.13.10 4.2.7.2.686 [id number] [facility] 2022-02-03 12:58:00 2022-02-03 21:31:00 Emergency FELIPE CESAR [facility] [id number] [facility] 2021-11-11 00:00:00 2021-11-11 00:00:00 Letter (Out) Provider, Dhruv [facility] 1..114 350.1.13.10 4.2.7.2.686 [id number] [facility] 2021-06-01 20:47:00 2021-06-01 23:01:00 Emergency Danny Betancur S [facility] 1..114 350.1.13.10 4.2.7.2.686 [id number] [facility] 2021-06-01 00:00:00 2021-06-01 00:00:00 Orders Only Doctor Unassigned, [place] [facility] 1.2.840.114 350.1.13.10 4.2.7.2.686 [id number] [facility] 2020-10-14 01:42:00 2020-10-14 02:17:00 Emergency Heike Odom [facility] 1.2.840.114 350.1.13.10 4.2.7.2.686 [id number] [facility] 2020-10-14 00:00:00 2020-10-14 00:00:00 Orders Only Doctor Unassigned, [place] [facility] 1.2.840.114 350.1.13.10 4.2.7.2.686 [id number] [facility] 2020-01-16 00:00:00 2020-01-16 00:00:00 Telephone Rona Guadarrama [facility] 1.840.114 350.1.13.10 4.2.7.2.686 [id number] [facility] 2020-01-16 00:00:00 2020-01-16 00:00:00 Telephone Rona Guadarrama [facility] 1.2840.114 350.1.13.10 4.2.7.2.686 [id number] [facility] 2020-01-15 00:00:00 2020-01-15 00:00:00 Telephone Juany Zambrano [facility] 1.2.840.114 350.1.13.10 4.2.7.2.686 [id number] [facility] 2020-01-14 14:53:47 2020-01-14 15:13:47 Urgent Care [facility], Acute Care Clinic Yohana Yap [facility] 1.840.114 350.1.13.10 4.2.7.2.686 [id number] [facility] 2020-01-14 15:00:00 2020-01-14 15:00:00 Outpatient YOHANA BOWEN [facility] [id number] [facility] Results Test Description Test Time Test Comments Results Result Co mments Source [id number] 11:25:00* Test Item Value Reference Range Interpretation Comme nts GLUBED (test code = GLUBED) 238 MG/DL 65-99 H Performed by cer tified winchman/crane operator at [facility] [id number] 05:11:00* Test Item Value Reference Range Interpretation Comme nts GLUBED (test code = GLUBED) 114 MG/DL 65-99 H Performed by cer tified winchman/crane operator at [facility] COMPREHENSIVE METABOLIC [id number] 03:31:00* Test Item Value Reference Range Interpretation Comme nts SODIUM (test code = NA) 142 MMOL/L 133-145 N POTASSIUM (test code = K) 3.7 MMOL/L 3.6-5.2 N CHLORIDE (test code = CL) 105 MMOL/L 100-108 N CARBON DIOXIDE (test code = CO2) 33 MMOL/L 22-32 H GLUCOSE (test code = GLU) 113 MG/DL 65-99 H Results of this assay method may be falsely depressed orelevated if patient is taking sulfasalazine. BLOOD UREA NITROGEN (test code = BUN) 16 MG/DL 6-20 N GLOMERULAR FILTRATION RATE (test code = GFR) 111 51-120 N The Glomerular Filtration Rate is a calculated parameterbased on serum Creatinine, patient age and sex. GFR valuesless than 60 mL/min/1.73 square meters are indicative ofChronic Kidney Disease. Values less than 15 mL/min/1.73square meters indicate Kidney failure. The calculation forGFR is based on the CKD-EPI (202) calculation. This formulais race indifferent and is the recommended formula for GFRby the National Kidney Foundation for Adults.The GFR will not calculate if the sex is unknown or if thepatient's age is <18 years. CREATININE (test code = CREAT) 0.53 MG/DL 0.60-1.00 L TOTAL PROTEIN (test code = PROT) 6.8 G/DL 6.4-8.2 N ALBUMIN (test code = ALB) 2.3 G/DL 3.4-5.0 L GLOBULIN (test code = GLOB) 4.5 G/DL 1.5-3.8 H ALBUMIN/GLOBULIN RATIO (test code = A/G) 0.5 1.1-2.2 L CALCIUM (test code = CA) 8.9 MG/DL 8.7-10.5 N BILIRUBIN TOTAL (test code = BILT) 0.3 MG/DL 0.0-1.0 N SGOT/AST (test code = AST) 20 Units/L 15-37 N Results of this assay method may be falsely depressed orelevated if patient is taking sulfasalazine. SGPT/ALT (test code = ALT) 8 Units/L 30-65 L Results of this assay method may be falsely depressed orelevated if patient is taking sulfasalazine. ALKALINE PHOSPHATASE TOTAL (test code = ALKP) 75 Units/L 50-136 N CBC W/AUTO [id number] 02:55:00* Test Item Value Reference Range Interpretation Comme nts WHITE BLOOD CELL (test code = WBC) 3.93 x10 3/uL 4.80-10.80 L RED BLOOD CELL (test code = RBC) 3.40 x10 6/uL 4.2-5.4 L HEMOGLOBIN (test code = HGB) 9.5 G/DL 12.0-16.0 L HEMATOCRIT (test code = HCT) 30.7 % 37-47 L MEAN CELL VOLUME (test code = MCV) 90.3 FL 81-99 N MEAN CELL HGB (test code = MCH) 27.9 PG 27-31 N MEAN CELL HGB CONCENTRATION (test code = MCHC) 30.9 G/DL 33-37 L RED CELL DISTRIBUTION WIDTH (test code = RDW) 13.0 % 11.5-14.5 N PLATELET COUNT (test code = PLT) 235 x10 3/uL 150-450 N MEAN PLATELET VOLUME (test c ode = MPV) 9.0 FL 7.4-10.4 N NEUTROPHIL % (test code = NT%) 41.2 % 42-86 L IMMATURE GRANULOCYTE % (test code = IG%) 0.0 % 0.0-2.0 N LYMPHOCYTE % (test code = LY%) 42.7 % 24-44 N MONOCYTE % (test code = MO%) 10.2 % 0.0-4.0 H EOSINOPHIL % (test code = EO%) 5.6 % 0.0-2.7 H BASOPHIL % (test code = BA%) 0.3 % 0.0-0.5 N NUCLEATED RBC % (test code = NRBC%) 0.0 % 0.0-0.0 N NEUTROPHIL # (test code = NT#) 1.62 x10 3/uL 1.8-7.7 L IMMATURE GRANULOCYTE # (test code = IG#) 0.00 x10 3/uL 0.00-0.03 N LYMPHOCYTE # (test code = LY#) 1.68 x10 3/uL 1.0-4.8 N MONOCYTE # (test code = MO#) 0.40 x10 3/uL 0.0-0.8 N EOSINOPHIL # (test code = EO#) 0.22 x10 3/uL 0.0-0.5 N BASOPHIL # (test code = BA#) 0.01 x10 3/uL 0.0-0.2 N NUCLEATED RBC # (test code = NRBC#) 0.0 X10 3/uL 0.0-0.2 N [id number] 02:29:00* Test Item Value Reference Range Interpretation Comme nts GLUBED (test code = GLUBED) 114 MG/DL 65-99 H Performed by cer tified winchman/crane operator at [facility]2024-07-09 20:38:00* Test Item Value Reference Range Interpretation Comme nts GLUBED (test code = GLUBED) 81 MG/DL 65-99 N Performed by cer tified winchman/crane operator at [facility] [id number] 15:14:00* Test Item Value Reference Range Interpretation Comme nts GLUBED (test code = GLUBED) 168 MG/DL 65-99 H Performed by cer tified winchman/crane operator at [facility] [id number] 11:14:00* Test Item Value Reference Range Interpretation Comme nts GLUBED (test code = GLUBED) 138 MG/DL 65-99 H Performed by cer tified winchman/crane operator at [facility] [id number] 05:33:00* Test Item Value Reference Range Interpretation Comme nts GLUBED (test code = GLUBED) 143 MG/DL 65-99 H Performed by cer tified winchman/crane operator at [facility] COMPREHENSIVE METABOLIC [id number] 05:08:00* Test Item Value Reference Range Interpretation Comme nts SODIUM (test code = NA) 139 MMOL/L 133-145 N POTASSIUM (test code = K) 3.5 MMOL/L 3.6-5.2 L CHLORIDE (test code = CL) 103 MMOL/L 100-108 N CARBON DIOXIDE (test code = CO2) 32 MMOL/L 22-32 N GLUCOSE (test code = GLU) 198 MG/DL 65-99 H Results of this assay method may be falsely depressed orelevated if patient is taking sulfasalazine. BLOOD UREA NITROGEN (test code = BUN) 19 MG/DL 6-20 N GLOMERULAR FILTRATION RATE (test code = GFR) 109 51-120 N The Glomerular Filtration Rate is a calculated parameterbased on serum Creatinine, patient age and sex. GFR valuesless than 60 mL/min/1.73 square meters are indicative ofChronic Kidney Disease. Values less than 15 mL/min/1.73square meters indicate Kidney failure. The calculation forGFR is based on the CKD-EPI (202) calculation. This formulais race indifferent and is the recommended formula for GFRby the National Kidney Foundation for Adults.The GFR will not calculate if the sex is unknown or if thepatient's age is <18 years. CREATININE (test code = CREAT) 0.57 MG/DL 0.60-1.00 L TOTAL PROTEIN (test code = PROT) 6.8 G/DL 6.4-8.2 N ALBUMIN (test code = ALB) 2.2 G/DL 3.4-5.0 L GLOBULIN (test code = GLOB) 4.6 G/DL 1.5-3.8 H ALBUMIN/GLOBULIN RATIO (test code = A/G) 0.5 1.1-2.2 L CALCIUM (test code = CA) 8.8 MG/DL 8.7-10.5 N BILIRUBIN TOTAL (test code = BILT) 0.2 MG/DL 0.0-1.0 N SGOT/AST (test code = AST) 23 Units/L 15-37 N Results of this assay method may be falsely depressed orelevated if patient is taking sulfasalazine. SGPT/ALT (test code = ALT) 13 Units/L 30-65 L Results of this assay method may be falsely depressed orelevated if patient is taking sulfasalazine. ALKALINE PHOSPHATASE TOTAL (test code = ALKP) 91 Units/L 50-136 N CBC W/AUTO [id number] 03:37:00* Test Item Value Reference Range Interpretation Comme nts WHITE BLOOD CELL (test code = WBC) 3.83 x10 3/uL 4.80-10.80 L RED BLOOD CELL (test code = RBC) 3.31 x10 6/uL 4.2-5.4 L HEMOGLOBIN (test code = HGB) 9.3 G/DL 12.0-16.0 L HEMATOCRIT (test code = HCT) 29.5 % 37-47 L MEAN CELL VOLUME (test code = MCV) 89.1 FL 81-99 N MEAN CELL HGB (test code = MCH) 28.1 PG 27-31 N MEAN CELL HGB CONCENTRATION (test code = MCHC) 31.5 G/DL 33-37 L RED CELL DISTRIBUTION WIDTH (test code = RDW) 13.0 % 11.5-14.5 N PLATELET COUNT (test code = PLT) 246 x10 3/uL 150-450 N MEAN PLATELET VOLUME (test c ode = MPV) 9.0 FL 7.4-10.4 N NEUTROPHIL % (test code = NT%) 42.1 % 42-86 N IMMATURE GRANULOCYTE % (test code = IG%) 0.3 % 0.0-2.0 N LYMPHOCYTE % (test code = LY%) 41.3 % 24-44 N MONOCYTE % (test code = MO%) 9.7 % 0.0-4.0 H EOSINOPHIL % (test code = EO%) 6.3 % 0.0-2.7 H BASOPHIL % (test code = BA%) 0.3 % 0.0-0.5 N NUCLEATED RBC % (test code = NRBC%) 0.0 % 0.0-0.0 N NEUTROPHIL # (test code = NT#) 1.62 x10 3/uL 1.8-7.7 L IMMATURE GRANULOCYTE # (test code = IG#) 0.01 x10 3/uL 0.00-0.03 N LYMPHOCYTE # (test code = LY#) 1.58 x10 3/uL 1.0-4.8 N MONOCYTE # (test code = MO#) 0.37 x10 3/uL 0.0-0.8 N EOSINOPHIL # (test code = EO#) 0.24 x10 3/uL 0.0-0.5 N BASOPHIL # (test code = BA#) 0.01 x10 3/uL 0.0-0.2 N NUCLEATED RBC # (test code = NRBC#) 0.0 X10 3/uL 0.0-0.2 N [id number] 01:47:00* Test Item Value Reference Range Interpretation Comme nts GLUBED (test code = GLUBED) 188 MG/DL 65-99 H Performed by cer tified winchman/crane operator at [facility] [id number] 20:16:00* Test Item Value Reference Range Interpretation Comme nts GLUBED (test code = GLUBED) 98 MG/DL 65-99 N Performed by cer tified winchman/crane operator at [facility] [id number] 15:43:00* Test Item Value Reference Range Interpretation Comme nts GLUBED (test code = GLUBED) 178 MG/DL 65-99 H Performed by cer tified winchman/crane operator at [facility] [id number] 11:08:00* Test Item Value Reference Range Interpretation Comme nts GLUBED (test code = GLUBED) 197 MG/DL 65-99 H Performed by cer tified winchman/crane operator at [facility] [id number] 05:52:00* Test Item Value Reference Range Interpretation Comme nts GLUBED (test code = GLUBED) 85 MG/DL 65-99 N Performed by cer tified winchman/crane operator at [facility] COMPREHENSIVE METABOLIC [id number] 03:17:00* Test Item Value Reference Range Interpretation Comme nts SODIUM (test code = NA) 136 MMOL/L 133-145 N POTASSIUM (test code = K) 3.8 MMOL/L 3.6-5.2 N CHLORIDE (test code = CL) 99 MMOL/L 100-108 L CARBON DIOXIDE (test code = CO2) 33 MMOL/L 22-32 H GLUCOSE (test code = GLU) 163 MG/DL 65-99 H Results of this assay method may be falsely depressed orelevated if patient is taking sulfasalazine. BLOOD UREA NITROGEN (test code = BUN) 20 MG/DL 6-20 N GLOMERULAR FILTRATION RATE (test code = GFR) 110 51-120 N The Glomerular Filtration Rate is a calculated parameterbased on serum Creatinine, patient age and sex. GFR valuesless than 60 mL/min/1.73 square meters are indicative ofChronic Kidney Disease. Values less than 15 mL/min/1.73square meters indicate Kidney failure. The calculation forGFR is based on the CKD-EPI (202) calculation. This formulais race indifferent and is the recommended formula for GFRby the National Kidney Foundation for Adults.The GFR will not calculate if the sex is unknown or if thepatient's age is <18 years. CREATININE (test code = CREAT) 0.55 MG/DL 0.60-1.00 L TOTAL PROTEIN (test code = PROT) 8.0 G/DL 6.4-8.2 N ALBUMIN (test code = ALB) 2.5 G/DL 3.4-5.0 L GLOBULIN (test code = GLOB) 5.5 G/DL 1.5-3.8 H ALBUMIN/GLOBULIN RATIO (test code = A/G) 0.5 1.1-2.2 L CALCIUM (test code = CA) 8.8 MG/DL 8.7-10.5 N BILIRUBIN TOTAL (test code = BILT) 0.3 MG/DL 0.0-1.0 N SGOT/AST (test code = AST) 21 Units/L 15-37 N Results of this assay method may be falsely depressed orelevated if patient is taking sulfasalazine. SGPT/ALT (test code = ALT) 12 Units/L 30-65 L Results of this assay method may be falsely depressed orelevated if patient is taking sulfasalazine. ALKALINE PHOSPHATASE TOTAL (test code = ALKP) 94 Units/L 50-136 N [id number] 02:40:00* Test Item Value Reference Range Interpretation Comme nts GLUBED (test code = GLUBED) 174 MG/DL 65-99 H Performed by cer esther winchman/crane operator at [facility] CBC W/AUTO [id number] 02:20:00* Test Item Value Reference Range Interpretation Comme nts WHITE BLOOD CELL (test code = WBC) 4.78 x10 3/uL 4.80-10.80 L RED BLOOD CELL (test code = RBC) 3.80 x10 6/uL 4.2-5.4 L HEMOGLOBIN (test code = HGB) 10.7 G/DL 12.0-16.0 L HEMATOCRIT (test code = HCT) 34.0 % 37-47 L MEAN CELL VOLUME (test code = MCV) 89.5 FL 81-99 N MEAN CELL HGB (test code = MCH) 28.2 PG 27-31 N MEAN CELL HGB CONCENTRATION (test code = MCHC) 31.5 G/DL 33-37 L RED CELL DISTRIBUTION WIDTH (test code = RDW) 13.0 % 11.5-14.5 N PLATELET COUNT (test code = PLT) 254 x10 3/uL 150-450 N MEAN PLATELET VOLUME (test c ode = MPV) 8.6 FL 7.4-10.4 N NEUTROPHIL % (test code = NT%) 47.8 % 42-86 N IMMATURE GRANULOCYTE % (test code = IG%) 0.2 % 0.0-2.0 N LYMPHOCYTE % (test code = LY%) 39.1 % 24-44 N MONOCYTE % (test code = MO%) 7.1 % 0.0-4.0 H EOSINOPHIL % (test code = EO%) 5.6 % 0.0-2.7 H BASOPHIL % (test code = BA%) 0.2 % 0.0-0.5 N NUCLEATED RBC % (test code = NRBC%) 0.0 % 0.0-0.0 N NEUTROPHIL # (test code = NT#) 2.28 x10 3/uL 1.8-7.7 N IMMATURE GRANULOCYTE # (test code = IG#) 0.01 x10 3/uL 0.00-0.03 N LYMPHOCYTE # (test code = LY#) 1.87 x10 3/uL 1.0-4.8 N MONOCYTE # (test code = MO#) 0.34 x10 3/uL 0.0-0.8 N EOSINOPHIL # (test code = EO#) 0.27 x10 3/uL 0.0-0.5 N BASOPHIL # (test code = BA#) 0.01 x10 3/uL 0.0-0.2 N NUCLEATED RBC # (test code = NRBC#) 0.0 X10 3/uL 0.0-0.2 N [id number] 19:55:00* Test Item Value Reference Range Interpretation Comme nts GLUBED (test code = GLUBED) 146 MG/DL 65-99 H Performed by cer tified winchman/crane operator at [facility]2024-07-07 16:09:00* Test Item Value Reference Range Interpretation Comme nts GLUBED (test code = GLUBED) 105 MG/DL 65-99 H Performed by cer tified winchman/crane operator at [facility]2024-07-07 10:55:00* Test Item Value Reference Range Interpretation Comme nts GLUBED (test code = GLUBED) 191 MG/DL 65-99 H Performed by cer tified winchman/crane operator at [facility]2024-07-07 06:28:00* Test Item Value Reference Range Interpretation Comme nts GLUBED (test code = GLUBED) 109 MG/DL 65-99 H Performed by cer tified winchman/crane operator at [facility]2024-07-07 01:14:00* Test Item Value Reference Range Interpretation Comme nts GLUBED (test code = GLUBED) 84 MG/DL 65-99 N Performed by cer tified winchman/crane operator at [facility]2024-07-06 20:13:00* Test Item Value Reference Range Interpretation Comme nts GLUBED (test code = GLUBED) 104 MG/DL 65-99 H Performed by cer tified winchman/crane operator at [facility]2024-07-06 16:38:00* Test Item Value Reference Range Interpretation Comme nts GLUBED (test code = GLUBED) 160 MG/DL 65-99 H Performed by cer tified winchman/crane operator at [facility]2024-07-06 11:02:00* Test Item Value Reference Range Interpretation Comme nts GLUBED (test code = GLUBED) 188 MG/DL 65-99 H Performed by cer tified winchman/crane operator at [facility] [id number] 05:26:00* Test Item Value Reference Range Interpretation Comme nts GLUBED (test code = GLUBED) 124 MG/DL 65-99 H Performed by cer tified winchman/crane operator at [facility]2024-07-06 02:10:00* Test Item Value Reference Range Interpretation Comme nts GLUBED (test code = GLUBED) 194 MG/DL 65-99 H Performed by cer tified winchman/crane operator at [facility]2024-07-05 20:06:00* Test Item Value Reference Range Interpretation Comme nts GLUBED (test code = GLUBED) 135 MG/DL 65-99 H Performed by cer tified winchman/crane operator at [facility] [id number] 17:04:00* Test Item Value Reference Range Interpretation Comme nts GLUBED (test code = GLUBED) 152 MG/DL 65-99 H Performed by cer tified winchman/crane operator at [facility] [id number] 12:17:00* Test Item Value Reference Range Interpretation Comme nts GLUBED (test code = GLUBED) 179 MG/DL 65-99 H Performed by cer tified winchman/crane operator at [facility] [id number] 10:47:00* Test Item Value Reference Range Interpretation Comme nts GLUBED (test code = GLUBED) 215 MG/DL 65-99 H Performed by cer tified winchman/crane operator at [facility] [id number] 05:47:00* Test Item Value Reference Range Interpretation Comme nts GLUBED (test code = GLUBED) 162 MG/DL 65-99 H Performed by cer tified winchman/crane operator at [facility] COMPREHENSIVE METABOLIC [id number] 05:10:00* Test Item Value Reference Range Interpretation Comme nts SODIUM (test code = NA) 138 MMOL/L 133-145 N POTASSIUM (test code = K) 3.8 MMOL/L 3.6-5.2 N CHLORIDE (test code = CL) 104 MMOL/L 100-108 N CARBON DIOXIDE (test code = CO2) 33 MMOL/L 22-32 H GLUCOSE (test code = GLU) 147 MG/DL 65-99 H Results of this assay method may be falsely depressed orelevated if patient is taking sulfasalazine. BLOOD UREA NITROGEN (test code = BUN) 21 MG/DL 6-20 H GLOMERULAR FILTRATION RATE (test code = GFR) 108 51-120 N The Glomerular Filtration Rate is a calculated parameterbased on serum Creatinine, patient age and sex. GFR valuesless than 60 mL/min/1.73 square meters are indicative ofChronic Kidney Disease. Values less than 15 mL/min/1.73square meters indicate Kidney failure. The calculation forGFR is based on the CKD-EPI (202) calculation. This formulais race indifferent and is the recommended formula for GFRby the National Kidney Foundation for Adults.The GFR will not calculate if the sex is unknown or if thepatient's age is <18 years. CREATININE (test code = CREAT) 0.58 MG/DL 0.60-1.00 L TOTAL PROTEIN (test code = PROT) 7.0 G/DL 6.4-8.2 N ALBUMIN (test code = ALB) 2.2 G/DL 3.4-5.0 L GLOBULIN (test code = GLOB) 4.8 G/DL 1.5-3.8 H ALBUMIN/GLOBULIN RATIO (test code = A/G) 0.5 1.1-2.2 L CALCIUM (test code = CA) 9.0 MG/DL 8.7-10.5 N BILIRUBIN TOTAL (test code = BILT) 0.2 MG/DL 0.0-1.0 N SGOT/AST (test code = AST) 16 Units/L 15-37 N Results of this assay method may be falsely depressed orelevated if patient is taking sulfasalazine. SGPT/ALT (test code = ALT) 15 Units/L 30-65 L Results of this assay method may be falsely depressed orelevated if patient is taking sulfasalazine. ALKALINE PHOSPHATASE TOTAL (test code = ALKP) 91 Units/L 50-136 N [id number] 05:10:00* Test Item Value Reference Range Interpretation Comme nts MAGNESIUM (test code = MAG) 2.0 MG/DL 1.8-2.4 N CBC W/AUTO [id number] 03:48:00* Test Item Value Reference Range Interpretation Comme nts WHITE BLOOD CELL (test code = WBC) 5.34 x10 3/uL 4.80-10.80 N RED BLOOD CELL (test code = RBC) 3.28 x10 6/uL 4.2-5.4 L HEMOGLOBIN (test code = HGB) 9.0 G/DL 12.0-16.0 L HEMATOCRIT (test code = HCT) 29.7 % 37-47 L MEAN CELL VOLUME (test code = MCV) 90.5 FL 81-99 N MEAN CELL HGB (test code = MCH) 27.4 PG 27-31 N MEAN CELL HGB CONCENTRATION (test code = MCHC) 30.3 G/DL 33-37 L RED CELL DISTRIBUTION WIDTH (test code = RDW) 13.2 % 11.5-14.5 N PLATELET COUNT (test code = PLT) 248 x10 3/uL 150-450 N MEAN PLATELET VOLUME (test c ode = MPV) 8.8 FL 7.4-10.4 N NEUTROPHIL % (test code = NT%) 55.2 % 42-86 N IMMATURE GRANULOCYTE % (test code = IG%) 0.4 % 0.0-2.0 N LYMPHOCYTE % (test code = LY%) 30.1 % 24-44 N MONOCYTE % (test code = MO%) 9.4 % 0.0-4.0 H EOSINOPHIL % (test code = EO%) 4.5 % 0.0-2.7 H BASOPHIL % (test code = BA%) 0.4 % 0.0-0.5 N NUCLEATED RBC % (test code = NRBC%) 0.0 % 0.0-0.0 N NEUTROPHIL # (test code = NT#) 2.95 x10 3/uL 1.8-7.7 N IMMATURE GRANULOCYTE # (test code = IG#) 0.02 x10 3/uL 0.00-0.03 N LYMPHOCYTE # (test code = LY#) 1.61 x10 3/uL 1.0-4.8 N MONOCYTE # (test code = MO#) 0.50 x10 3/uL 0.0-0.8 N EOSINOPHIL # (test code = EO#) 0.24 x10 3/uL 0.0-0.5 N BASOPHIL # (test code = BA#) 0.02 x10 3/uL 0.0-0.2 N NUCLEATED RBC # (test code = NRBC#) 0.0 X10 3/uL 0.0-0.2 N [id number] 01:25:00* Test Item Value Reference Range Interpretation Comme nts GLUBED (test code = GLUBED) 123 MG/DL 65-99 H Performed by cer tified winchman/crane operator at [facility] [id number] 21:43:00* Test Item Value Reference Range Interpretation Comme nts GLUBED (test code = GLUBED) 237 MG/DL 65-99 H Performed by cer tified winchman/crane operator at [facility] [id number] 15:48:00* Test Item Value Reference Range Interpretation Comme nts GLUBED (test code = GLUBED) 141 MG/DL 65-99 H Performed by cer tified winchman/crane operator at [facility]2024-07-04 14:43:00* Test Item Value Reference Range Interpretation Comme nts GLUBED (test code = GLUBED) 105 MG/DL 65-99 H Performed by cer tified winchman/crane operator at [facility]2024-07-04 13:54:00* Test Item Value Reference Range Interpretation Comme nts GLUBED (test code = GLUBED) 83 MG/DL 65-99 N Performed by cer tified winchman/crane operator at [facility]2024-07-04 11:50:00* Test Item Value Reference Range Interpretation Comme nts GLUBED (test code = GLUBED) 156 MG/DL 65-99 H Performed by cer tified winchman/crane operator at [facility]2024-07-04 05:18:00* Test Item Value Reference Range Interpretation Comme nts GLUBED (test code = GLUBED) 160 MG/DL 65-99 H Performed by cer tified winchman/crane operator at [facility]2024-07-04 01:39:00* Test Item Value Reference Range Interpretation Comme nts GLUBED (test code = GLUBED) 146 MG/DL 65-99 H Performed by cer tified winchman/crane operator at [facility]2024-07-03 20:13:00* Test Item Value Reference Range Interpretation Comme nts GLUBED (test code = GLUBED) 179 MG/DL 65-99 H Performed by cer tified winchman/crane operator at [facility]2024-07-03 15:31:00* Test Item Value Reference Range Interpretation Comme nts GLUBED (test code = GLUBED) 137 MG/DL 65-99 H Performed by cer tified winchman/crane operator at [facility]2024-07-03 14:17:00* Test Item Value Reference Range Interpretation Comme nts GLUBED (test code = GLUBED) 141 MG/DL 65-99 H Performed by cer tified winchman/crane operator at [facility]2024-07-03 05:16:00* Test Item Value Reference Range Interpretation Comme nts GLUBED (test code = GLUBED) 182 MG/DL 65-99 H Performed by cer tified winchman/crane operator at [facility]2024-07-03 03:01:00* Test Item Value Reference Range Interpretation Comme nts GLUBED (test code = GLUBED) 175 MG/DL 65-99 H Performed by cer tified winchman/crane operator at [facility] [id number] 19:58:00* Test Item Value Reference Range Interpretation Comme nts GLUBED (test code = GLUBED) 169 MG/DL 65-99 H Performed by cer tified winchman/crane operator at [facility] [id number] 15:47:00* Test Item Value Reference Range Interpretation Comme nts GLUBED (test code = GLUBED) 150 MG/DL 65-99 H Performed by cer tified winchman/crane operator at [facility]2024-07-02 14:33:00* Test Item Value Reference Range Interpretation Comme nts GLUBED (test code = GLUBED) 122 MG/DL 65-99 H Performed by cer tified winchman/crane operator at [facility]2024-07-02 14:15:00* Test Item Value Reference Range Interpretation Comme nts GLUBED (test code = GLUBED) 114 MG/DL 65-99 H Performed by cer tified winchman/crane operator at [facility]2024-07-02 13:46:00* Test Item Value Reference Range Interpretation Comme nts GLUBED (test code = GLUBED) 58 MG/DL 65-99 L Performed by cer tified winchman/crane operator at [facility] [id number] 11:12:00* Test Item Value Reference Range Interpretation Comme nts GLUBED (test code = GLUBED) 181 MG/DL 65-99 H Performed by cer tified winchman/crane operator at [facility] [id number] 05:19:00* Test Item Value Reference Range Interpretation Comme nts GLUBED (test code = GLUBED) 132 MG/DL 65-99 H Performed by cer tified winchman/crane operator at [facility] BASIC METABOLIC [id number] 03:26:00* Test Item Value Reference Range Interpretation Comme nts SODIUM (test code = NA) 142 MMOL/L 133-145 N POTASSIUM (test code = K) 3.5 MMOL/L 3.6-5.2 L CHLORIDE (test code = CL) 105 MMOL/L 100-108 N CARBON DIOXIDE (test code = CO2) 33 MMOL/L 22-32 H GLUCOSE (test code = GLU) 107 MG/DL 65-99 H Results of this assay method may be falsely depressed orelevated if patient is taking sulfasalazine. BLOOD UREA NITROGEN (test code = BUN) 23 MG/DL 6-20 H GLOMERULAR FILTRATION RATE (test code = GFR) 116 51-120 N The Glomerular Filtration Rate is a calculated parameterbased on serum Creatinine, patient age and sex. GFR valuesless than 60 mL/min/1.73 square meters are indicative ofChronic Kidney Disease. Values less than 15 mL/min/1.73square meters indicate Kidney failure. The calculation forGFR is based on the CKD-EPI (202) calculation. This formulais race indifferent and is the recommended formula for GFRby the National Kidney Foundation for Adults.The GFR will not calculate if the sex is unknown or if thepatient's age is <18 years. CREATININE (test code = CREAT) 0.44 MG/DL 0.60-1.00 L CALCIUM (test code = CA) 8.9 MG/DL 8.7-10.5 N CBC W/AUTO [id number] 02:56:00* Test Item Value Reference Range Interpretation Comme nts WHITE BLOOD CELL (test code = WBC) 5.02 x10 3/uL 4.80-10.80 N RED BLOOD CELL (test code = RBC) 3.35 x10 6/uL 4.2-5.4 L HEMOGLOBIN (test code = HGB) 9.4 G/DL 12.0-16.0 L HEMATOCRIT (test code = HCT) 30.5 % 37-47 L MEAN CELL VOLUME (test code = MCV) 91.0 FL 81-99 N MEAN CELL HGB (test code = MCH) 28.1 PG 27-31 N MEAN CELL HGB CONCENTRATION (test code = MCHC) 30.8 G/DL 33-37 L RED CELL DISTRIBUTION WIDTH (test code = RDW) 12.9 % 11.5-14.5 N PLATELET COUNT (test code = PLT) 284 x10 3/uL 150-450 N MEAN PLATELET VOLUME (test c ode = MPV) 8.7 FL 7.4-10.4 N NEUTROPHIL % (test code = NT%) 46.4 % 42-86 N IMMATURE GRANULOCYTE % (test code = IG%) 0.6 % 0.0-2.0 N LYMPHOCYTE % (test code = LY%) 40.4 % 24-44 N MONOCYTE % (test code = MO%) 8.4 % 0.0-4.0 H EOSINOPHIL % (test code = EO%) 3.8 % 0.0-2.7 H BASOPHIL % (test code = BA%) 0.4 % 0.0-0.5 N NUCLEATED RBC % (test code = NRBC%) 0.0 % 0.0-0.0 N NEUTROPHIL # (test code = NT#) 2.33 x10 3/uL 1.8-7.7 N IMMATURE GRANULOCYTE # (test code = IG#) 0.03 x10 3/uL 0.00-0.03 N LYMPHOCYTE # (test code = LY#) 2.03 x10 3/uL 1.0-4.8 N MONOCYTE # (test code = MO#) 0.42 x10 3/uL 0.0-0.8 N EOSINOPHIL # (test code = EO#) 0.19 x10 3/uL 0.0-0.5 N BASOPHIL # (test code = BA#) 0.02 x10 3/uL 0.0-0.2 N NUCLEATED RBC # (test code = NRBC#) 0.0 X10 3/uL 0.0-0.2 N [id number] 00:56:00* Test Item Value Reference Range Interpretation Comme nts GLUBED (test code = GLUBED) 109 MG/DL 65-99 H Performed by cer tified winchman/crane operator at [facility]2024-07-01 19:36:00* Test Item Value Reference Range Interpretation Comme nts GLUBED (test code = GLUBED) 162 MG/DL 65-99 H Performed by cer tified winchman/crane operator at [facility] [id number] 15:40:00* Test Item Value Reference Range Interpretation Comme nts GLUBED (test code = GLUBED) 119 MG/DL 65-99 H Performed by cer tified winchman/crane operator at [facility] [id number] 10:53:00* Test Item Value Reference Range Interpretation Comme nts GLUBED (test code = GLUBED) 195 MG/DL 65-99 H Performed by cer tified winchman/crane operator at [facility] [id number] 06:15:00* Test Item Value Reference Range Interpretation Comme nts GLUBED (test code = GLUBED) 102 MG/DL 65-99 H Performed by cer tified winchman/crane operator at [facility] [id number] 02:18:00* Test Item Value Reference Range Interpretation Comme nts GLUBED (test code = GLUBED) 144 MG/DL 65-99 H Performed by cer tified winchman/crane operator at [facility]2024-06-30 20:08:00* Test Item Value Reference Range Interpretation Comme nts GLUBED (test code = GLUBED) 179 MG/DL 65-99 H Performed by cer tified winchman/crane operator at [facility]2024-06-30 16:23:00* Test Item Value Reference Range Interpretation Comme nts GLUBED (test code = GLUBED) 136 MG/DL 65-99 H Performed by cer tified winchman/crane operator at [facility]2024-06-30 11:04:00* Test Item Value Reference Range Interpretation Comme nts GLUBED (test code = GLUBED) 210 MG/DL 65-99 H Performed by cer tified winchman/crane operator at [facility]2024-06-30 05:38:00* Test Item Value Reference Range Interpretation Comme nts GLUBED (test code = GLUBED) 126 MG/DL 65-99 H Performed by cer tified winchman/crane operator at [facility]2024-06-30 02:00:00* Test Item Value Reference Range Interpretation Comme nts GLUBED (test code = GLUBED) 109 MG/DL 65-99 H Performed by cer tified winchman/crane operator at [facility]2024-06-29 19:52:00* Test Item Value Reference Range Interpretation Comme nts GLUBED (test code = GLUBED) 158 MG/DL 65-99 H Performed by cer tified winchman/crane operator at [facility]2024-06-29 15:19:00* Test Item Value Reference Range Interpretation Comme nts GLUBED (test code = GLUBED) 159 MG/DL 65-99 H Performed by cer tified winchman/crane operator at [facility] [id number] 10:44:00* Test Item Value Reference Range Interpretation Comme nts GLUBED (test code = GLUBED) 211 MG/DL 65-99 H Performed by cer tified winchman/crane operator at [facility] [id number] 05:55:00* Test Item Value Reference Range Interpretation Comme nts GLUBED (test code = GLUBED) 84 MG/DL 65-99 N Performed by cer tified winchman/crane operator at [facility] BASIC METABOLIC [id number] 03:54:00* Test Item Value Reference Range Interpretation Comme nts SODIUM (test code = NA) 140 MMOL/L 133-145 N POTASSIUM (test code = K) 3.9 MMOL/L 3.6-5.2 N CHLORIDE (test code = CL) 104 MMOL/L 100-108 N CARBON DIOXIDE (test code = CO2) 33 MMOL/L 22-32 H GLUCOSE (test code = GLU) 206 MG/DL 65-99 H Results of this assay method may be falsely depressed orelevated if patient is taking sulfasalazine. BLOOD UREA NITROGEN (test code = BUN) 21 MG/DL 6-20 H GLOMERULAR FILTRATION RATE (test code = GFR) 112 51-120 N The Glomerular Filtration Rate is a calculated parameterbased on serum Creatinine, patient age and sex. GFR valuesless than 60 mL/min/1.73 square meters are indicative ofChronic Kidney Disease. Values less than 15 mL/min/1.73square meters indicate Kidney failure. The calculation forGFR is based on the CKD-EPI (202) calculation. This formulais race indifferent and is the recommended formula for GFRby the National Kidney Foundation for Adults.The GFR will not calculate if the sex is unknown or if thepatient's age is <18 years. CREATININE (test code = CREAT) 0.51 MG/DL 0.60-1.00 L CALCIUM (test code = CA) 8.7 MG/DL 8.7-10.5 N CBC W/AUTO [id number] 03:03:00* Test Item Value Reference Range Interpretation Comme nts WHITE BLOOD CELL (test code = WBC) 5.47 x10 3/uL 4.80-10.80 N RED BLOOD CELL (test code = RBC) 3.20 x10 6/uL 4.2-5.4 L HEMOGLOBIN (test code = HGB) 8.8 G/DL 12.0-16.0 L HEMATOCRIT (test code = HCT) 29.2 % 37-47 L MEAN CELL VOLUME (test code = MCV) 91.3 FL 81-99 N MEAN CELL HGB (test code = MCH) 27.5 PG 27-31 N MEAN CELL HGB CONCENTRATION (test code = MCHC) 30.1 G/DL 33-37 L RED CELL DISTRIBUTION WIDTH (test code = RDW) 12.7 % 11.5-14.5 N PLATELET COUNT (test code = PLT) 288 x10 3/uL 150-450 N MEAN PLATELET VOLUME (test c ode = MPV) 8.4 FL 7.4-10.4 N NEUTROPHIL % (test code = NT%) 57.7 % 42-86 N IMMATURE GRANULOCYTE % (test code = IG%) 0.4 % 0.0-2.0 N LYMPHOCYTE % (test code = LY%) 33.1 % 24-44 N MONOCYTE % (test code = MO%) 6.0 % 0.0-4.0 H EOSINOPHIL % (test code = EO%) 2.6 % 0.0-2.7 N BASOPHIL % (test code = BA%) 0.2 % 0.0-0.5 N NUCLEATED RBC % (test code = NRBC%) 0.0 % 0.0-0.0 N NEUTROPHIL # (test code = NT#) 3.16 x10 3/uL 1.8-7.7 N IMMATURE GRANULOCYTE # (test code = IG#) 0.02 x10 3/uL 0.00-0.03 N LYMPHOCYTE # (test code = LY#) 1.81 x10 3/uL 1.0-4.8 N MONOCYTE # (test code = MO#) 0.33 x10 3/uL 0.0-0.8 N EOSINOPHIL # (test code = EO#) 0.14 x10 3/uL 0.0-0.5 N BASOPHIL # (test code = BA#) 0.01 x10 3/uL 0.0-0.2 N NUCLEATED RBC # (test code = NRBC#) 0.0 X10 3/uL 0.0-0.2 N [id number] 01:59:00* Test Item Value Reference Range Interpretation Comme nts GLUBED (test code = GLUBED) 200 MG/DL 65-99 H Performed by cer tified winchman/crane operator at [facility] [id number] 20:13:00* Test Item Value Reference Range Interpretation Comme nts GLUBED (test code = GLUBED) 127 MG/DL 65-99 H Performed by cer tified winchman/crane operator at [facility] [id number] 15:42:00* Test Item Value Reference Range Interpretation Comme nts GLUBED (test code = GLUBED) 202 MG/DL 65-99 H Performed by cer tified winchman/crane operator at [facility] [id number] 11:08:00* Test Item Value Reference Range Interpretation Comme nts GLUBED (test code = GLUBED) 173 MG/DL 65-99 H Performed by cer tified winchman/crane operator at [facility] [id number] 06:04:00* Test Item Value Reference Range Interpretation Comme nts GLUBED (test code = GLUBED) 163 MG/DL 65-99 H Performed by cer tified winchman/crane operator at [facility] BASIC METABOLIC [id number] 03:47:00* Test Item Value Reference Range Interpretation Comme nts SODIUM (test code = NA) 140 MMOL/L 133-145 N POTASSIUM (test code = K) 4.1 MMOL/L 3.6-5.2 N CHLORIDE (test code = CL) 104 MMOL/L 100-108 N CARBON DIOXIDE (test code = CO2) 35 MMOL/L 22-32 H GLUCOSE (test code = GLU) 202 MG/DL 65-99 H Results of this assay method may be falsely depressed orelevated if patient is taking sulfasalazine. BLOOD UREA NITROGEN (test code = BUN) 20 MG/DL 6-20 N GLOMERULAR FILTRATION RATE (test code = GFR) 111 51-120 N The Glomerular Filtration Rate is a calculated parameterbased on serum Creatinine, patient age and sex. GFR valuesless than 60 mL/min/1.73 square meters are indicative ofChronic Kidney Disease. Values less than 15 mL/min/1.73square meters indicate Kidney failure. The calculation forGFR is based on the CKD-EPI (202) calculation. This formulais race indifferent and is the recommended formula for GFRby the National Kidney Foundation for Adults.The GFR will not calculate if the sex is unknown or if thepatient's age is <18 years. CREATININE (test code = CREAT) 0.53 MG/DL 0.60-1.00 L CALCIUM (test code = CA) 8.8 MG/DL 8.7-10.5 N CBC W/AUTO [id number] 03:16:00* Test Item Value Reference Range Interpretation Comme nts WHITE BLOOD CELL (test code = WBC) 5.66 x10 3/uL 4.80-10.80 N RED BLOOD CELL (test code = RBC) 3.08 x10 6/uL 4.2-5.4 L HEMOGLOBIN (test code = HGB) 8.7 G/DL 12.0-16.0 L HEMATOCRIT (test code = HCT) 28.0 % 37-47 L MEAN CELL VOLUME (test code = MCV) 90.9 FL 81-99 N MEAN CELL HGB (test code = MCH) 28.2 PG 27-31 N MEAN CELL HGB CONCENTRATION (test code = MCHC) 31.1 G/DL 33-37 L RED CELL DISTRIBUTION WIDTH (test code = RDW) 12.6 % 11.5-14.5 N PLATELET COUNT (test code = PLT) 279 x10 3/uL 150-450 N MEAN PLATELET VOLUME (test c ode = MPV) 8.4 FL 7.4-10.4 N NEUTROPHIL % (test code = NT%) 58.2 % 42-86 N IMMATURE GRANULOCYTE % (test code = IG%) 0.4 % 0.0-2.0 N LYMPHOCYTE % (test code = LY%) 32.3 % 24-44 N MONOCYTE % (test code = MO%) 6.9 % 0.0-4.0 H EOSINOPHIL % (test code = EO%) 1.8 % 0.0-2.7 N BASOPHIL % (test code = BA%) 0.4 % 0.0-0.5 N NUCLEATED RBC % (test code = NRBC%) 0.0 % 0.0-0.0 N NEUTROPHIL # (test code = NT#) 3.30 x10 3/uL 1.8-7.7 N IMMATURE GRANULOCYTE # (test code = IG#) 0.02 x10 3/uL 0.00-0.03 N LYMPHOCYTE # (test code = LY#) 1.83 x10 3/uL 1.0-4.8 N MONOCYTE # (test code = MO#) 0.39 x10 3/uL 0.0-0.8 N EOSINOPHIL # (test code = EO#) 0.10 x10 3/uL 0.0-0.5 N BASOPHIL # (test code = BA#) 0.02 x10 3/uL 0.0-0.2 N NUCLEATED RBC # (test code = NRBC#) 0.0 X10 3/uL 0.0-0.2 N [id number] 20:05:00* Test Item Value Reference Range Interpretation Comme nts GLUBED (test code = GLUBED) 100 MG/DL 65-99 H Performed by cer tified winchman/crane operator at [facility] [id number] 17:10:00* Test Item Value Reference Range Interpretation Comme nts GLUBED (test code = GLUBED) 179 MG/DL 65-99 H Performed by cer tified winchman/crane operator at [facility] [id number] 10:52:00* Test Item Value Reference Range Interpretation Comme nts GLUBED (test code = GLUBED) 217 MG/DL 65-99 H Performed by cer tified winchman/crane operator at [facility] [id number] 05:20:00* Test Item Value Reference Range Interpretation Comme nts GLUBED (test code = GLUBED) 139 MG/DL 65-99 H Performed by cer tified winchman/crane operator at [facility] BASIC METABOLIC [id number] 03:18:00* Test Item Value Reference Range Interpretation Comme nts SODIUM (test code = NA) 140 MMOL/L 133-145 N POTASSIUM (test code = K) 4.0 MMOL/L 3.6-5.2 N CHLORIDE (test code = CL) 103 MMOL/L 100-108 N CARBON DIOXIDE (test code = CO2) 35 MMOL/L 22-32 H GLUCOSE (test code = GLU) 162 MG/DL 65-99 H Results of this assay method may be falsely depressed orelevated if patient is taking sulfasalazine. BLOOD UREA NITROGEN (test code = BUN) 20 MG/DL 6-20 N GLOMERULAR FILTRATION RATE (test code = GFR) 118 51-120 N The Glomerular Filtration Rate is a calculated parameterbased on serum Creatinine, patient age and sex. GFR valuesless than 60 mL/min/1.73 square meters are indicative ofChronic Kidney Disease. Values less than 15 mL/min/1.73square meters indicate Kidney failure. The calculation forGFR is based on the CKD-EPI (202) calculation. This formulais race indifferent and is the recommended formula for GFRby the National Kidney Foundation for Adults.The GFR will not calculate if the sex is unknown or if thepatient's age is <18 years. CREATININE (test code = CREAT) 0.40 MG/DL 0.60-1.00 L CALCIUM (test code = CA) 8.3 MG/DL 8.7-10.5 L CBC W/AUTO [id number] 02:45:00* Test Item Value Reference Range Interpretation Comme nts WHITE BLOOD CELL (test code = WBC) 6.54 x10 3/uL 4.80-10.80 N RED BLOOD CELL (test code = RBC) 2.99 x10 6/uL 4.2-5.4 L HEMOGLOBIN (test code = HGB) 8.5 G/DL 12.0-16.0 L HEMATOCRIT (test code = HCT) 26.3 % 37-47 L MEAN CELL VOLUME (test code = MCV) 88.0 FL 81-99 N MEAN CELL HGB (test code = MCH) 28.4 PG 27-31 N MEAN CELL HGB CONCENTRATION (test code = MCHC) 32.3 G/DL 33-37 L RED CELL DISTRIBUTION WIDTH (test code = RDW) 12.5 % 11.5-14.5 N PLATELET COUNT (test code = PLT) 295 x10 3/uL 150-450 N MEAN PLATELET VOLUME (test c ode = MPV) 8.3 FL 7.4-10.4 N NEUTROPHIL % (test code = NT%) 58.2 % 42-86 N IMMATURE GRANULOCYTE % (test code = IG%) 0.5 % 0.0-2.0 N LYMPHOCYTE % (test code = LY%) 32.6 % 24-44 N MONOCYTE % (test code = MO%) 7.3 % 0.0-4.0 H EOSINOPHIL % (test code = EO%) 1.2 % 0.0-2.7 N BASOPHIL % (test code = BA%) 0.2 % 0.0-0.5 N NUCLEATED RBC % (test code = NRBC%) 0.0 % 0.0-0.0 N NEUTROPHIL # (test code = NT#) 3.81 x10 3/uL 1.8-7.7 N IMMATURE GRANULOCYTE # (test code = IG#) 0.03 x10 3/uL 0.00-0.03 N LYMPHOCYTE # (test code = LY#) 2.13 x10 3/uL 1.0-4.8 N MONOCYTE # (test code = MO#) 0.48 x10 3/uL 0.0-0.8 N EOSINOPHIL # (test code = EO#) 0.08 x10 3/uL 0.0-0.5 N BASOPHIL # (test code = BA#) 0.01 x10 3/uL 0.0-0.2 N NUCLEATED RBC # (test code = NRBC#) 0.0 X10 3/uL 0.0-0.2 N [id number] 19:47:00* Test Item Value Reference Range Interpretation Comme nts GLUBED (test code = GLUBED) 198 MG/DL 65-99 H Performed by cer tified winchman/crane operator at [facility] [id number] 15:39:00* Test Item Value Reference Range Interpretation Comme nts GLUBED (test code = GLUBED) 168 MG/DL 65-99 H Performed by cer tified winchman/crane operator at [facility] [id number] 11:09:00* Test Item Value Reference Range Interpretation Comme nts GLUBED (test code = GLUBED) 195 MG/DL 65-99 H Performed by cer tified winchman/crane operator at [facility] [id number] 05:23:00* Test Item Value Reference Range Interpretation Comme nts GLUBED (test code = GLUBED) 108 MG/DL 65-99 H Performed by cer tified winchman/crane operator at [facility] BASIC METABOLIC [id number] 03:29:00* Test Item Value Reference Range Interpretation Comme nts SODIUM (test code = NA) 137 MMOL/L 133-145 N POTASSIUM (test code = K) 4.0 MMOL/L 3.6-5.2 N CHLORIDE (test code = CL) 102 MMOL/L 100-108 N CARBON DIOXIDE (test code = CO2) 33 MMOL/L 22-32 H GLUCOSE (test code = GLU) 177 MG/DL 65-99 H Results of this assay method may be falsely depressed orelevated if patient is taking sulfasalazine. BLOOD UREA NITROGEN (test code = BUN) 17 MG/DL 6-20 N GLOMERULAR FILTRATION RATE (test code = GFR) 115 51-120 N The Glomerular Filtration Rate is a calculated parameterbased on serum Creatinine, patient age and sex. GFR valuesless than 60 mL/min/1.73 square meters are indicative ofChronic Kidney Disease. Values less than 15 mL/min/1.73square meters indicate Kidney failure. The calculation forGFR is based on the CKD-EPI (2020) calculation. This formulais race indifferent and is the recommended formula for GFRby the National Kidney Foundation for Adults.The GFR will not calculate if the sex is unknown or if thepatient's age is <18 years. CREATININE (test code = CREAT) 0.45 MG/DL 0.60-1.00 L CALCIUM (test code = CA) 8.3 MG/DL 8.7-10.5 L [id number] 03:29:00* Test Item Value Reference Range Interpretation Comme nts MAGNESIUM (test code = MAG) 2.0 MG/DL 1.8-2.4 N CBC W/AUTO [id number] 03:14:00* Test Item Value Reference Range Interpretation Comme nts WHITE BLOOD CELL (test code = WBC) 6.63 x10 3/uL 4.80-10.80 N RED BLOOD CELL (test code = RBC) 3.19 x10 6/uL 4.2-5.4 L HEMOGLOBIN (test code = HGB) 8.9 G/DL 12.0-16.0 L HEMATOCRIT (test code = HCT) 28.6 % 37-47 L MEAN CELL VOLUME (test code = MCV) 89.7 FL 81-99 N MEAN CELL HGB (test code = MCH) 27.9 PG 27-31 N MEAN CELL HGB CONCENTRATION (test code = MCHC) 31.1 G/DL 33-37 L RED CELL DISTRIBUTION WIDTH (test code = RDW) 12.4 % 11.5-14.5 N PLATELET COUNT (test code = PLT) 317 x10 3/uL 150-450 N MEAN PLATELET VOLUME (test c ode = MPV) 8.5 FL 7.4-10.4 N NEUTROPHIL % (test code = NT%) 62.8 % 42-86 N IMMATURE GRANULOCYTE % (test code = IG%) 0.5 % 0.0-2.0 N LYMPHOCYTE % (test code = LY%) 29.6 % 24-44 N MONOCYTE % (test code = MO%) 5.4 % 0.0-4.0 H EOSINOPHIL % (test code = EO%) 1.4 % 0.0-2.7 N BASOPHIL % (test code = BA%) 0.3 % 0.0-0.5 N NUCLEATED RBC % (test code = NRBC%) 0.0 % 0.0-0.0 N NEUTROPHIL # (test code = NT#) 4.17 x10 3/uL 1.8-7.7 N IMMATURE GRANULOCYTE # (test code = IG#) 0.03 x10 3/uL 0.00-0.03 N LYMPHOCYTE # (test code = LY#) 1.96 x10 3/uL 1.0-4.8 N MONOCYTE # (test code = MO#) 0.36 x10 3/uL 0.0-0.8 N EOSINOPHIL # (test code = EO#) 0.09 x10 3/uL 0.0-0.5 N BASOPHIL # (test code = BA#) 0.02 x10 3/uL 0.0-0.2 N NUCLEATED RBC # (test code = NRBC#) 0.0 X10 3/uL 0.0-0.2 N [id number] 02:13:00* Test Item Value Reference Range Interpretation Comme nts GLUBED (test code = GLUBED) 170 MG/DL 65-99 H Performed by cer tified winchman/crane operator at [facility] [id number] 20:53:00* Test Item Value Reference Range Interpretation Comme nts GLUBED (test code = GLUBED) 186 MG/DL 65-99 H Performed by cer tified winchman/crane operator at [facility] [id number] 15:51:00* Test Item Value Reference Range Interpretation Comme nts GLUBED (test code = GLUBED) 115 MG/DL 65-99 H Performed by cer tified winchman/crane operator at [facility] [id number] 11:28:00* Test Item Value Reference Range Interpretation Comme nts GLUBED (test code = GLUBED) 216 MG/DL 65-99 H Performed by cer tified winchman/crane operator at [facility] [id number] 05:28:00* Test Item Value Reference Range Interpretation Comme nts GLUBED (test code = GLUBED) 112 MG/DL 65-99 H Performed by cer tified winchman/crane operator at [facility] BASIC METABOLIC [id number] 03:22:00* Test Item Value Reference Range Interpretation Comme nts SODIUM (test code = NA) 135 MMOL/L 133-145 N POTASSIUM (test code = K) 3.5 MMOL/L 3.6-5.2 L CHLORIDE (test code = CL) 101 MMOL/L 100-108 N CARBON DIOXIDE (test code = CO2) 33 MMOL/L 22-32 H GLUCOSE (test code = GLU) 122 MG/DL 65-99 H Results of this assay method may be falsely depressed orelevated if patient is taking sulfasalazine. BLOOD UREA NITROGEN (test code = BUN) 17 MG/DL 6-20 N GLOMERULAR FILTRATION RATE (test code = GFR) 116 51-120 N The Glomerular Filtration Rate is a calculated parameterbased on serum Creatinine, patient age and sex. GFR valuesless than 60 mL/min/1.73 square meters are indicative ofChronic Kidney Disease. Values less than 15 mL/min/1.73square meters indicate Kidney failure. The calculation forGFR is based on the CKD-EPI (202) calculation. This formulais race indifferent and is the recommended formula for GFRby the National Kidney Foundation for Adults.The GFR will not calculate if the sex is unknown or if thepatient's age is <18 years. CREATININE (test code = CREAT) 0.44 MG/DL 0.60-1.00 L CALCIUM (test code = CA) 7.8 MG/DL 8.7-10.5 L [id number] 03:22:00* Test Item Value Reference Range Interpretation Comme nts MAGNESIUM (test code = MAG) 2.0 MG/DL 1.8-2.4 N CBC W/AUTO [id number] 03:14:00* Test Item Value Reference Range Interpretation Comme nts WHITE BLOOD CELL (test code = WBC) 8.29 x10 3/uL 4.80-10.80 N RED BLOOD CELL (test code = RBC) 2.94 x10 6/uL 4.2-5.4 L HEMOGLOBIN (test code = HGB) 8.3 G/DL 12.0-16.0 L HEMATOCRIT (test code = HCT) 26.3 % 37-47 L MEAN CELL VOLUME (test code = MCV) 89.5 FL 81-99 N MEAN CELL HGB (test code = MCH) 28.2 PG 27-31 N MEAN CELL HGB CONCENTRATION (test code = MCHC) 31.6 G/DL 33-37 L RED CELL DISTRIBUTION WIDTH (test code = RDW) 12.1 % 11.5-14.5 N PLATELET COUNT (test code = PLT) 311 x10 3/uL 150-450 N MEAN PLATELET VOLUME (test c ode = MPV) 8.4 FL 7.4-10.4 N NEUTROPHIL % (test code = NT%) 63.5 % 42-86 N IMMATURE GRANULOCYTE % (test code = IG%) 0.5 % 0.0-2.0 N LYMPHOCYTE % (test code = LY%) 29.3 % 24-44 N MONOCYTE % (test code = MO%) 5.5 % 0.0-4.0 H EOSINOPHIL % (test code = EO%) 1.1 % 0.0-2.7 N BASOPHIL % (test code = BA%) 0.1 % 0.0-0.5 N NUCLEATED RBC % (test code = NRBC%) 0.0 % 0.0-0.0 N NEUTROPHIL # (test code = NT#) 5.26 x10 3/uL 1.8-7.7 N IMMATURE GRANULOCYTE # (test code = IG#) 0.04 x10 3/uL 0.00-0.03 H LYMPHOCYTE # (test code = LY#) 2.43 x10 3/uL 1.0-4.8 N MONOCYTE # (test code = MO#) 0.46 x10 3/uL 0.0-0.8 N EOSINOPHIL # (test code = EO#) 0.09 x10 3/uL 0.0-0.5 N BASOPHIL # (test code = BA#) 0.01 x10 3/uL 0.0-0.2 N NUCLEATED RBC # (test code = NRBC#) 0.0 X10 3/uL 0.0-0.2 N [id number] 02:06:00* Test Item Value Reference Range Interpretation Comme nts GLUBED (test code = GLUBED) 113 MG/DL 65-99 H Performed by cer tified winchman/crane operator at [facility] [id number] 20:20:00* Test Item Value Reference Range Interpretation Comme nts GLUBED (test code = GLUBED) 170 MG/DL 65-99 H Performed by cer tified winchman/crane operator at [facility] [id number] 15:47:00* Test Item Value Reference Range Interpretation Comme nts GLUBED (test code = GLUBED) 222 MG/DL 65-99 H Performed by cer tified winchman/crane operator at [facility] [id number] 11:20:00* Test Item Value Reference Range Interpretation Comme nts GLUBED (test code = GLUBED) 165 MG/DL 65-99 H Performed by cer tified winchman/crane operator at [facility] BASIC METABOLIC [id number] 04:35:00* Test Item Value Reference Range Interpretation Comme nts SODIUM (test code = NA) 137 MMOL/L 133-145 N POTASSIUM (test code = K) 3.9 MMOL/L 3.6-5.2 N CHLORIDE (test code = CL) 101 MMOL/L 100-108 N CARBON DIOXIDE (test code = CO2) 36 MMOL/L 22-32 H GLUCOSE (test code = GLU) 183 MG/DL 65-99 H Results of this assay method may be falsely depressed orelevated if patient is taking sulfasalazine. BLOOD UREA NITROGEN (test code = BUN) 16 MG/DL 6-20 N GLOMERULAR FILTRATION RATE (test code = GFR) 110 51-120 N The Glomerular Filtration Rate is a calculated parameterbased on serum Creatinine, patient age and sex. GFR valuesless than 60 mL/min/1.73 square meters are indicative ofChronic Kidney Disease. Values less than 15 mL/min/1.73square meters indicate Kidney failure. The calculation forGFR is based on the CKD-EPI (202) calculation. This formulais race indifferent and is the recommended formula for GFRby the National Kidney Foundation for Adults.The GFR will not calculate if the sex is unknown or if thepatient's age is <18 years. CREATININE (test code = CREAT) 0.54 MG/DL 0.60-1.00 L CALCIUM (test code = CA) 8.0 MG/DL 8.7-10.5 L [id number] 04:35:00* Test Item Value Reference Range Interpretation Comme nts MAGNESIUM (test code = MAG) 2.2 MG/DL 1.8-2.4 N CBC W/AUTO [id number] 04:22:00* Test Item Value Reference Range Interpretation Comme nts WHITE BLOOD CELL (test code = WBC) 8.51 x10 3/uL 4.80-10.80 N RED BLOOD CELL (test code = RBC) 3.02 x10 6/uL 4.2-5.4 L HEMOGLOBIN (test code = HGB) 8.4 G/DL 12.0-16.0 L HEMATOCRIT (test code = HCT) 27.3 % 37-47 L MEAN CELL VOLUME (test code = MCV) 90.4 FL 81-99 N MEAN CELL HGB (test code = MCH) 27.8 PG 27-31 N MEAN CELL HGB CONCENTRATION (test code = MCHC) 30.8 G/DL 33-37 L RED CELL DISTRIBUTION WIDTH (test code = RDW) 12.3 % 11.5-14.5 N PLATELET COUNT (test code = PLT) 310 x10 3/uL 150-450 N MEAN PLATELET VOLUME (test c ode = MPV) 8.3 FL 7.4-10.4 N NEUTROPHIL % (test code = NT%) 65.5 % 42-86 N IMMATURE GRANULOCYTE % (test code = IG%) 0.5 % 0.0-2.0 N LYMPHOCYTE % (test code = LY%) 26.9 % 24-44 N MONOCYTE % (test code = MO%) 5.8 % 0.0-4.0 H EOSINOPHIL % (test code = EO%) 1.1 % 0.0-2.7 N BASOPHIL % (test code = BA%) 0.2 % 0.0-0.5 N NUCLEATED RBC % (test code = NRBC%) 0.0 % 0.0-0.0 N NEUTROPHIL # (test code = NT#) 5.58 x10 3/uL 1.8-7.7 N IMMATURE GRANULOCYTE # (test code = IG#) 0.04 x10 3/uL 0.00-0.03 H LYMPHOCYTE # (test code = LY#) 2.29 x10 3/uL 1.0-4.8 N MONOCYTE # (test code = MO#) 0.49 x10 3/uL 0.0-0.8 N EOSINOPHIL # (test code = EO#) 0.09 x10 3/uL 0.0-0.5 N BASOPHIL # (test code = BA#) 0.02 x10 3/uL 0.0-0.2 N NUCLEATED RBC # (test code = NRBC#) 0.0 X10 3/uL 0.0-0.2 N [id number] 02:25:00* Test Item Value Reference Range Interpretation Comme nts GLUBED (test code = GLUBED) 175 MG/DL 65-99 H Performed by cer tified winchman/crane operator at [facility] [id number] 20:03:00* Test Item Value Reference Range Interpretation Comme nts GLUBED (test code = GLUBED) 123 MG/DL 65-99 H Performed by cer tified winchman/crane operator at [facility] [id number] 17:17:00* Test Item Value Reference Range Interpretation Comme nts GLUBED (test code = GLUBED) 206 MG/DL 65-99 H Performed by cer tified winchman/crane operator at [facility] [id number] 11:07:00* Test Item Value Reference Range Interpretation Comme nts GLUBED (test code = GLUBED) 182 MG/DL 65-99 H Performed by cer tified winchman/crane operator at [facility] [id number] 05:28:00* Test Item Value Reference Range Interpretation Comme nts GLUBED (test code = GLUBED) 152 MG/DL 65-99 H Performed by cer tified winchman/crane operator at [facility] BASIC METABOLIC [id number] 04:22:00* Test Item Value Reference Range Interpretation Comme nts SODIUM (test code = NA) 137 MMOL/L 133-145 N POTASSIUM (test code = K) 4.1 MMOL/L 3.6-5.2 N CHLORIDE (test code = CL) 103 MMOL/L 100-108 N CARBON DIOXIDE (test code = CO2) 34 MMOL/L 22-32 H GLUCOSE (test code = GLU) 187 MG/DL 65-99 H Results of this assay method may be falsely depressed orelevated if patient is taking sulfasalazine. BLOOD UREA NITROGEN (test code = BUN) 16 MG/DL 6-20 N GLOMERULAR FILTRATION RATE (test code = GFR) 112 51-120 N The Glomerular Filtration Rate is a calculated parameterbased on serum Creatinine, patient age and sex. GFR valuesless than 60 mL/min/1.73 square meters are indicative ofChronic Kidney Disease. Values less than 15 mL/min/1.73square meters indicate Kidney failure. The calculation forGFR is based on the CKD-EPI (202) calculation. This formulais race indifferent and is the recommended formula for GFRby the National Kidney Foundation for Adults.The GFR will not calculate if the sex is unknown or if thepatient's age is <18 years. CREATININE (test code = CREAT) 0.50 MG/DL 0.60-1.00 L CALCIUM (test code = CA) 7.9 MG/DL 8.7-10.5 L [id number] 04:22:00* Test Item Value Reference Range Interpretation Comme nts MAGNESIUM (test code = MAG) 2.1 MG/DL 1.8-2.4 N CBC W/AUTO [id number] 04:05:00* Test Item Value Reference Range Interpretation Comme nts WHITE BLOOD CELL (test code = WBC) 8.89 x10 3/uL 4.80-10.80 N RED BLOOD CELL (test code = RBC) 3.01 x10 6/uL 4.2-5.4 L HEMOGLOBIN (test code = HGB) 8.6 G/DL 12.0-16.0 L HEMATOCRIT (test code = HCT) 27.2 % 37-47 L MEAN CELL VOLUME (test code = MCV) 90.4 FL 81-99 N MEAN CELL HGB (test code = MCH) 28.6 PG 27-31 N MEAN CELL HGB CONCENTRATION (test code = MCHC) 31.6 G/DL 33-37 L RED CELL DISTRIBUTION WIDTH (test code = RDW) 12.1 % 11.5-14.5 N PLATELET COUNT (test code = PLT) 323 x10 3/uL 150-450 N MEAN PLATELET VOLUME (test c ode = MPV) 8.4 FL 7.4-10.4 N NEUTROPHIL % (test code = NT%) 70.9 % 42-86 N IMMATURE GRANULOCYTE % (test code = IG%) 0.4 % 0.0-2.0 N LYMPHOCYTE % (test code = LY%) 22.0 % 24-44 L MONOCYTE % (test code = MO%) 5.4 % 0.0-4.0 H EOSINOPHIL % (test code = EO%) 1.1 % 0.0-2.7 N BASOPHIL % (test code = BA%) 0.2 % 0.0-0.5 N NUCLEATED RBC % (test code = NRBC%) 0.0 % 0.0-0.0 N NEUTROPHIL # (test code = NT#) 6.29 x10 3/uL 1.8-7.7 N IMMATURE GRANULOCYTE # (test code = IG#) 0.04 x10 3/uL 0.00-0.03 H LYMPHOCYTE # (test code = LY#) 1.96 x10 3/uL 1.0-4.8 N MONOCYTE # (test code = MO#) 0.48 x10 3/uL 0.0-0.8 N EOSINOPHIL # (test code = EO#) 0.10 x10 3/uL 0.0-0.5 N BASOPHIL # (test code = BA#) 0.02 x10 3/uL 0.0-0.2 N NUCLEATED RBC # (test code = NRBC#) 0.0 X10 3/uL 0.0-0.2 N [id number] 01:34:00* Test Item Value Reference Range Interpretation Comme nts GLUBED (test code = GLUBED) 149 MG/DL 65-99 H Performed by cer tified winchman/crane operator at [facility] [id number] 20:16:00* Test Item Value Reference Range Interpretation Comme nts GLUBED (test code = GLUBED) 177 MG/DL 65-99 H Performed by cer tified winchman/crane operator at [facility] [id number] 15:41:00* Test Item Value Reference Range Interpretation Comme nts GLUBED (test code = GLUBED) 141 MG/DL 65-99 H Performed by cer tified winchman/crane operator at [facility] [id number] 10:49:00* Test Item Value Reference Range Interpretation Comme nts GLUBED (test code = GLUBED) 202 MG/DL 65-99 H Performed by cer tified winchman/crane operator at [facility] [id number] 06:31:00* Test Item Value Reference Range Interpretation Comme nts GLUBED (test code = GLUBED) 122 MG/DL 65-99 H Performed by cer tified winchman/crane operator at [facility] BASIC METABOLIC [id number] 05:19:00* Test Item Value Reference Range Interpretation Comme nts SODIUM (test code = NA) 139 MMOL/L 133-145 N POTASSIUM (test code = K) 3.8 MMOL/L 3.6-5.2 N CHLORIDE (test code = CL) 105 MMOL/L 100-108 N CARBON DIOXIDE (test code = CO2) 34 MMOL/L 22-32 H GLUCOSE (test code = GLU) 133 MG/DL 65-99 H Results of this assay method may be falsely depressed orelevated if patient is taking sulfasalazine. BLOOD UREA NITROGEN (test code = BUN) 16 MG/DL 6-20 N GLOMERULAR FILTRATION RATE (test code = GFR) 111 51-120 N The Glomerular Filtration Rate is a calculated parameterbased on serum Creatinine, patient age and sex. GFR valuesless than 60 mL/min/1.73 square meters are indicative ofChronic Kidney Disease. Values less than 15 mL/min/1.73square meters indicate Kidney failure. The calculation forGFR is based on the CKD-EPI (202) calculation. This formulais race indifferent and is the recommended formula for GFRby the National Kidney Foundation for Adults.The GFR will not calculate if the sex is unknown or if thepatient's age is <18 years. CREATININE (test code = CREAT) 0.52 MG/DL 0.60-1.00 L CALCIUM (test code = CA) 7.9 MG/DL 8.7-10.5 L [id number] 05:19:00* Test Item Value Reference Range Interpretation Comme nts MAGNESIUM (test code = MAG) 2.1 MG/DL 1.8-2.4 N CBC W/AUTO [id number] 04:47:00* Test Item Value Reference Range Interpretation Comme nts WHITE BLOOD CELL (test code = WBC) 8.49 x10 3/uL 4.80-10.80 N RED BLOOD CELL (test code = RBC) 3.15 x10 6/uL 4.2-5.4 L HEMOGLOBIN (test code = HGB) 8.9 G/DL 12.0-16.0 L HEMATOCRIT (test code = HCT) 28.5 % 37-47 L MEAN CELL VOLUME (test code = MCV) 90.5 FL 81-99 N MEAN CELL HGB (test code = MCH) 28.3 PG 27-31 N MEAN CELL HGB CONCENTRATION (test code = MCHC) 31.2 G/DL 33-37 L RED CELL DISTRIBUTION WIDTH (test code = RDW) 12.2 % 11.5-14.5 N PLATELET COUNT (test code = PLT) 308 x10 3/uL 150-450 N MEAN PLATELET VOLUME (test c ode = MPV) 8.2 FL 7.4-10.4 N NEUTROPHIL % (test code = NT%) 69.5 % 42-86 N IMMATURE GRANULOCYTE % (test code = IG%) 0.4 % 0.0-2.0 N LYMPHOCYTE % (test code = LY%) 23.3 % 24-44 L MONOCYTE % (test code = MO%) 5.7 % 0.0-4.0 H EOSINOPHIL % (test code = EO%) 0.9 % 0.0-2.7 N BASOPHIL % (test code = BA%) 0.2 % 0.0-0.5 N NUCLEATED RBC % (test code = NRBC%) 0.0 % 0.0-0.0 N NEUTROPHIL # (test code = NT#) 5.90 x10 3/uL 1.8-7.7 N IMMATURE GRANULOCYTE # (test code = IG#) 0.03 x10 3/uL 0.00-0.03 N LYMPHOCYTE # (test code = LY#) 1.98 x10 3/uL 1.0-4.8 N MONOCYTE # (test code = MO#) 0.48 x10 3/uL 0.0-0.8 N EOSINOPHIL # (test code = EO#) 0.08 x10 3/uL 0.0-0.5 N BASOPHIL # (test code = BA#) 0.02 x10 3/uL 0.0-0.2 N NUCLEATED RBC # (test code = NRBC#) 0.0 X10 3/uL 0.0-0.2 N [id number] 01:57:00* Test Item Value Reference Range Interpretation Comme nts GLUBED (test code = GLUBED) 218 MG/DL 65-99 H Performed by cer tified winchman/crane operator at [facility] [id number] 19:45:00* Test Item Value Reference Range Interpretation Comme nts GLUBED (test code = GLUBED) 191 MG/DL 65-99 H Performed by cer tified winchman/crane operator at [facility] [id number] 16:00:00* Test Item Value Reference Range Interpretation Comme nts GLUBED (test code = GLUBED) 94 MG/DL 65-99 N Performed by cer tified winchman/crane operator at [facility] PROTHROMBIN [id number] 13:34:00* Test Item Value Reference Range Interpretation Comme nts PROTHROMBIN TIME PATIENT (test code = PTP) 13.2 SECONDS 9.6-12.3 H INTERNATIONAL NORMAL RATIO (test code = INR) 1.14 Recommended INR range (warfarin therapy): 2.0 - 3.0INR (International Normalized Ratio) should beused when interpreting oral anticoaglulant therapy. For atrial fibrillation and treatment orprevention of deep vein thrombosis. Patients with Palmaz-Yury stent *: 2.0 - 3.0 Patients with mechanical heart valve *: 2.5 - 3.5 Patients with flex-stent *: 3.0 - 4.0(*) = environmental coordinator's suggested range Is patient on anticoagulants? No AnticoagulantsTHROMBOPLASTIN TIME PARTIAL 2024-03-22 13:34:00* Test Item Value Reference Range Interpretation Comme [facility] THROMBOPLASTIN TIME PARTIAL (test code = PTT) 31.2 SECONDS 22.5-35.3 N *Therapeutic ran ge for heparin: 58.7 - 87.5 The aPTT tet should not be used to evaluate low moleculat weight heparin anticoagulant therapy. Is patient on anticoagulants? No [id number] 11:20:00* Test Item Value Reference Range Interpretation Comme [facility] GLUBED (test code = GLUBED) 195 MG/DL 65-99 H Performed by [employer] winchman/crane operator at [facility] VITAMIN [id number] 08:20:00* Test Item Value Reference Range Interpretation Comme [facility] VITAMIN B12 (test code = VITB12) 740 pg/mL 232-1245 Performed At: [facility] [id number] Kyle L MD Ph:[phone] FOLIC ACID (FOLATE)2024-03-22 08:20:00* Test Item Value Reference Range Interpretation Comme nts FOLIC ACID (FOLATE) (test code = FOL) 10.1 ng/mL >3.0 A serum folate concentration of less than 3.1 ng/mL isconsidered to represent clinical deficiency. [id number] 05:29:00* Test Item Value Reference Range Interpretation Comme nts GLUBED (test code = GLUBED) 113 MG/DL 65-99 H Performed by [employer] winchman/crane operator at [facility] BASIC METABOLIC [id number] 04:59:00* Test Item Value Reference Range Interpretation Comme nts SODIUM (test code = NA) 136 MMOL/L 133-145 N POTASSIUM (test code = K) 4.0 MMOL/L 3.6-5.2 N CHLORIDE (test code = CL) 101 MMOL/L 100-108 N CARBON DIOXIDE (test code = CO2) 33 MMOL/L 22-32 H GLUCOSE (test code = GLU) 128 MG/DL 65-99 H Results of this assay method may be falsely depressed orelevated if patient is taking sulfasalazine. BLOOD UREA NITROGEN (test code = BUN) 7 MG/DL 6-20 N GLOMERULAR FILTRATION RATE (test code = GFR) 114 51-120 N The Glomerular Filtration Rate is a calculated parameterbased on serum Creatinine, patient age and sex. GFR valuesless than 60 mL/min/1.73 square meters are indicative ofChronic Kidney Disease. Values less than 15 mL/min/1.73square meters indicate Kidney failure. The calculation forGFR is based on the CKD-EPI (202) calculation. This formulais race indifferent and is the recommended formula for GFRby the National Kidney Foundation for Adults.The GFR will not calculate if the sex is unknown or if thepatient's age is <18 years. CREATININE (test code = CREAT) 0.47 MG/DL 0.60-1.00 L CALCIUM (test code = CA) 8.2 MG/DL 8.7-10.5 L [id number] 04:59:00* Test Item Value Reference Range Interpretation Comme nts MAGNESIUM (test code = MAG) 2.0 MG/DL 1.8-2.4 N CBC W/AUTO [id number] 04:20:00* Test Item Value Reference Range Interpretation Comme nts WHITE BLOOD CELL (test code = WBC) 11.74 x10 3/uL 4.80-10.80 H RED BLOOD CELL (test code = RBC) 3.02 x10 6/uL 4.2-5.4 L HEMOGLOBIN (test code = HGB) 8.6 G/DL 12.0-16.0 L HEMATOCRIT (test code = HCT) 26.8 % 37-47 L MEAN CELL VOLUME (test code = MCV) 88.7 FL 81-99 N MEAN CELL HGB (test code = MCH) 28.5 PG 27-31 N MEAN CELL HGB CONCENTRATION (test code = MCHC) 32.1 G/DL 33-37 L RED CELL DISTRIBUTION WIDTH (test code = RDW) 12.3 % 11.5-14.5 N PLATELET COUNT (test code = PLT) 341 x10 3/uL 150-450 N MEAN PLATELET VOLUME (test code = MPV) 8.3 FL 7.4-10.4 N NEUTROPHIL % (test code = NT%) 74.6 % 42-86 N IMMATURE GRANULOCYTE % (test code = IG%) 0.6 % 0.0-2.0 N LYMPHOCYTE % (test code = LY%) 18.2 % 24-44 L MONOCYTE % (test code = MO%) 5.7 % 0.0-4.0 H EOSINOPHIL % (test code = EO%) 0.7 % 0.0-2.7 N BASOPHIL % (test code = BA%) 0.2 % 0.0-0.5 N NUCLEATED RBC % (test code = NRBC%) 0.0 % 0.0-0.0 N NEUTROPHIL # (test code = NT#) 8.76 x10 3/uL 1.8-7.7 H IMMATURE GRANULOCYTE # (test code = IG#) 0.07 x10 3/uL 0.00-0.03 H LYMPHOCYTE # (test code = LY#) 2.14 x10 3/uL 1.0-4.8 N MONOCYTE # (test code = MO#) 0.67 x10 3/uL 0.0-0.8 N EOSINOPHIL # (test code = EO#) 0.08 x10 3/uL 0.0-0.5 N BASOPHIL # (test code = BA#) 0.02 x10 3/uL 0.0-0.2 N NUCLEATED RBC # (test code = NRBC#) 0.0 X10 3/uL 0.0-0.2 N [id number] 01:38:00* Test Item Value Reference Range Interpretation Comme nts GLUBED (test code = GLUBED) 119 MG/DL 65-99 H Performed by cer tified winchman/crane operator at [facility] [id number] 19:46:00* Test Item Value Reference Range Interpretation Comme nts GLUBED (test code = GLUBED) 165 MG/DL 65-99 H Performed by cer tified winchman/crane operator at [facility] [id number] 15:37:00* Test Item Value Reference Range Interpretation Comme nts GLUBED (test code = GLUBED) 148 MG/DL 65-99 H Performed by cer tified winchman/crane operator at [facility] [id number] 10:54:00* Test Item Value Reference Range Interpretation Comme nts GLUBED (test code = GLUBED) 170 MG/DL 65-99 H Performed by cer tified winchman/crane operator at [facility] [id number] 05:35:00* Test Item Value Reference Range Interpretation Comme nts GLUBED (test code = GLUBED) 188 MG/DL 65-99 H Performed by cer tified winchman/crane operator at [facility] BASIC METABOLIC [id number] 04:27:00* Test Item Value Reference Range Interpretation Comme nts SODIUM (test code = NA) 135 MMOL/L 133-145 N POTASSIUM (test code = K) 3.5 MMOL/L 3.6-5.2 L CHLORIDE (test code = CL) 100 MMOL/L 100-108 N CARBON DIOXIDE (test code = CO2) 33 MMOL/L 22-32 H GLUCOSE (test code = GLU) 201 MG/DL 65-99 H Results of this assay method may be falsely depressed orelevated if patient is taking sulfasalazine. BLOOD UREA NITROGEN (test code = BUN) 11 MG/DL 6-20 N GLOMERULAR FILTRATION RATE (test code = GFR) 111 51-120 N The Glomerular Filtration Rate is a calculated parameterbased on serum Creatinine, patient age and sex. GFR valuesless than 60 mL/min/1.73 square meters are indicative ofChronic Kidney Disease. Values less than 15 mL/min/1.73square meters indicate Kidney failure. The calculation forGFR is based on the CKD-EPI (2020) calculation. This formulais race indifferent and is the recommended formula for GFRby the National Kidney Foundation for Adults.The GFR will not calculate if the sex is unknown or if thepatient's age is <18 years. CREATININE (test code = CREAT) 0.53 MG/DL 0.60-1.00 L CALCIUM (test code = CA) 7.9 MG/DL 8.7-10.5 L [id number] 04:27:00* Test Item Value Reference Range Interpretation Comme nts MAGNESIUM (test code = MAG) 2.1 MG/DL 1.8-2.4 N [id number] 04:27:00* Test Item Value Reference Range Interpretation Comme nts FERRITIN (test code = BALTAZAR) 278 NG/ML 3-105 H TOTAL IRON BINDING [id number] 04:26:00* Test Item Value Reference Range Interpretation Comme nts SERUM IRON (test code = IRON) 20 MCG/DL 50-170 L TOTAL IRON BINDING CAPACITY (test code = TIBC) 133 MCG/DL 280-400 L IRON SATURATION (test code = FESAT) 15 % 15-50 N CBC W/AUTO [id number] 03:37:00* Test Item Value Reference Range Interpretation Comme nts WHITE BLOOD CELL (test code = WBC) 10.78 x10 3/uL 4.80-10.80 N RED BLOOD CELL (test code = RBC) 3.12 x10 6/uL 4.2-5.4 L HEMOGLOBIN (test code = HGB) 8.9 G/DL 12.0-16.0 L HEMATOCRIT (test code = HCT) 27.5 % 37-47 L MEAN CELL VOLUME (test code = MCV) 88.1 FL 81-99 N MEAN CELL HGB (test code = MCH) 28.5 PG 27-31 N MEAN CELL HGB CONCENTRATION (test code = MCHC) 32.4 G/DL 33-37 L RED CELL DISTRIBUTION WIDTH (test code = RDW) 12.4 % 11.5-14.5 N PLATELET COUNT (test code = PLT) 360 x10 3/uL 150-450 N MEAN PLATELET VOLUME (test code = MPV) 8.4 FL 7.4-10.4 N NEUTROPHIL % (test code = NT%) 71.2 % 42-86 N IMMATURE GRANULOCYTE % (test code = IG%) 0.7 % 0.0-2.0 N LYMPHOCYTE % (test code = LY%) 20.0 % 24-44 L MONOCYTE % (test code = MO%) 7.2 % 0.0-4.0 H EOSINOPHIL % (test code = EO%) 0.7 % 0.0-2.7 N BASOPHIL % (test code = BA%) 0.2 % 0.0-0.5 N NUCLEATED RBC % (test code = NRBC%) 0.0 % 0.0-0.0 N NEUTROPHIL # (test code = NT#) 7.66 x10 3/uL 1.8-7.7 N IMMATURE GRANULOCYTE # (test code = IG#) 0.08 x10 3/uL 0.00-0.03 H LYMPHOCYTE # (test code = LY#) 2.16 x10 3/uL 1.0-4.8 N MONOCYTE # (test code = MO#) 0.78 x10 3/uL 0.0-0.8 N EOSINOPHIL # (test code = EO#) 0.08 x10 3/uL 0.0-0.5 N BASOPHIL # (test code = BA#) 0.02 x10 3/uL 0.0-0.2 N NUCLEATED RBC # (test code = NRBC#) 0.0 X10 3/uL 0.0-0.2 N [id number] 02:25:00* Test Item Value Reference Range Interpretation Comme nts GLUBED (test code = GLUBED) 209 MG/DL 65-99 H Performed by cer tified winchman/crane operator at [facility] [id number] 21:03:00* Test Item Value Reference Range Interpretation Comme nts GLUBED (test code = GLUBED) 211 MG/DL 65-99 H Performed by cer tified winchman/crane operator at [facility] [id number] 15:58:00* Test Item Value Reference Range Interpretation Comme nts GLUBED (test code = GLUBED) 190 MG/DL 65-99 H Performed by cer tified winchman/crane operator at [facility] [id number] 10:40:00* Test Item Value Reference Range Interpretation Comme nts GLUBED (test code = GLUBED) 119 MG/DL 65-99 H Performed by cer tified winchman/crane operator at [facility] [id number] 05:17:00* Test Item Value Reference Range Interpretation Comme nts GLUBED (test code = GLUBED) 108 MG/DL 65-99 H Performed by cer tified winchman/crane operator at [facility] COMPREHENSIVE METABOLIC [id number] 03:22:00* Test Item Value Reference Range Interpretation Comme nts SODIUM (test code = NA) 138 MMOL/L 133-145 N POTASSIUM (test code = K) 3.6 MMOL/L 3.6-5.2 N CHLORIDE (test code = CL) 102 MMOL/L 100-108 N CARBON DIOXIDE (test code = CO2) 35 MMOL/L 22-32 H GLUCOSE (test code = GLU) 144 MG/DL 65-99 H Results of this assay method may be falsely depressed orelevated if patient is taking sulfasalazine. BLOOD UREA NITROGEN (test code = BUN) 7 MG/DL 6-20 N GLOMERULAR FILTRATION RATE (test code = GFR) 109 51-120 N The Glomerular Filtration Rate is a calculated parameterbased on serum Creatinine, patient age and sex. GFR valuesless than 60 mL/min/1.73 square meters are indicative ofChronic Kidney Disease. Values less than 15 mL/min/1.73square meters indicate Kidney failure. The calculation forGFR is based on the CKD-EPI (2020) calculation. This formulais race indifferent and is the recommended formula for GFRby the National Kidney Foundation for Adults.The GFR will not calculate if the sex is unknown or if thepatient's age is <18 years. CREATININE (test code = CREAT) 0.57 MG/DL 0.60-1.00 L TOTAL PROTEIN (test code = PROT) 6.9 G/DL 6.4-8.2 N ALBUMIN (test code = ALB) 1.5 G/DL 3.4-5.0 L GLOBULIN (test code = GLOB) 5.4 G/DL 1.5-3.8 H ALBUMIN/GLOBULIN RATIO (test code = A/G) 0.3 1.1-2.2 L CALCIUM (test code = CA) 8.2 MG/DL 8.7-10.5 L BILIRUBIN TOTAL (test code = BILT) 0.2 MG/DL 0.0-1.0 N SGOT/AST (test code = AST) 17 Units/L 15-37 N Results of this assay method may be falsely depressed orelevated if patient is taking sulfasalazine. SGPT/ALT (test code = ALT) 8 Units/L 30-65 L Results of this assay method may be falsely depressed orelevated if patient is taking sulfasalazine. ALKALINE PHOSPHATASE TOTAL (test code = ALKP) 75 Units/L 50-136 N [id number] 03:22:00* Test Item Value Reference Range Interpretation Comme nts MAGNESIUM (test code = MAG) 2.2 MG/DL 1.8-2.4 N CBC W/AUTO [id number] 02:52:00* Test Item Value Reference Range Interpretation Comme nts WHITE BLOOD CELL (test code = WBC) 9.50 x10 3/uL 4.80-10.80 N RED BLOOD CELL (test code = RBC) 3.15 x10 6/uL 4.2-5.4 L HEMOGLOBIN (test code = HGB) 8.9 G/DL 12.0-16.0 L HEMATOCRIT (test code = HCT) 28.0 % 37-47 L MEAN CELL VOLUME (test code = MCV) 88.9 FL 81-99 N MEAN CELL HGB (test code = MCH) 28.3 PG 27-31 N MEAN CELL HGB CONCENTRATION (test code = MCHC) 31.8 G/DL 33-37 L RED CELL DISTRIBUTION WIDTH (test code = RDW) 12.5 % 11.5-14.5 N PLATELET COUNT (test code = PLT) 326 x10 3/uL 150-450 N MEAN PLATELET VOLUME (test c ode = MPV) 8.4 FL 7.4-10.4 N NEUTROPHIL % (test code = NT%) 70.6 % 42-86 N IMMATURE GRANULOCYTE % (test code = IG%) 0.8 % 0.0-2.0 N LYMPHOCYTE % (test code = LY%) 19.4 % 24-44 L MONOCYTE % (test code = MO%) 8.0 % 0.0-4.0 H EOSINOPHIL % (test code = EO%) 1.1 % 0.0-2.7 N BASOPHIL % (test code = BA%) 0.1 % 0.0-0.5 N NUCLEATED RBC % (test code = NRBC%) 0.0 % 0.0-0.0 N NEUTROPHIL # (test code = NT#) 6.71 x10 3/uL 1.8-7.7 N IMMATURE GRANULOCYTE # (test code = IG#) 0.08 x10 3/uL 0.00-0.03 H LYMPHOCYTE # (test code = LY#) 1.84 x10 3/uL 1.0-4.8 N MONOCYTE # (test code = MO#) 0.76 x10 3/uL 0.0-0.8 N EOSINOPHIL # (test code = EO#) 0.10 x10 3/uL 0.0-0.5 N BASOPHIL # (test code = BA#) 0.01 x10 3/uL 0.0-0.2 N NUCLEATED RBC # (test code = NRBC#) 0.0 X10 3/uL 0.0-0.2 N [id number] 02:06:00* Test Item Value Reference Range Interpretation Comme nts GLUBED (test code = GLUBED) 141 MG/DL 65-99 H Performed by cer tified winchman/crane operator at [facility] [id number] 20:05:00* Test Item Value Reference Range Interpretation Comme nts GLUBED (test code = GLUBED) 181 MG/DL 65-99 H Performed by cer tified winchman/crane operator at [facility] [id number] 15:30:00* Test Item Value Reference Range Interpretation Comme nts GLUBED (test code = GLUBED) 101 MG/DL 65-99 H Performed by cer tified winchman/crane operator at [facility] HCG SERUM [id number] 12:35:00* Test Item Value Reference Range Interpretation Comme nts HCG SERUM QUAL (test code = HCGQL) NEGATIVE NEGATIVE False negatives may occur when levels of hCGare below 10 mIU/ml. When is still suspected, a new specimenshould be obtained after 48 hours and re-tested.If waiting 48 hours is not medically advisable,the test result should be confirmed using aquantitative hCG assay. [id number] 10:43:00* Test Item Value Reference Range Interpretation Comme nts GLUBED (test code = GLUBED) 126 MG/DL 65-99 H Performed by cer tified winchman/crane operator at [facility] [id number] 05:21:00* Test Item Value Reference Range Interpretation Comme nts GLUBED (test code = GLUBED) 140 MG/DL 65-99 H Performed by cer tified winchman/crane operator at [facility] COMPREHENSIVE METABOLIC [id number] 03:48:00* Test Item Value Reference Range Interpretation Comme nts SODIUM (test code = NA) 136 MMOL/L 133-145 N POTASSIUM (test code = K) 3.8 MMOL/L 3.6-5.2 N CHLORIDE (test code = CL) 101 MMOL/L 100-108 N CARBON DIOXIDE (test code = CO2) 33 MMOL/L 22-32 H GLUCOSE (test code = GLU) 142 MG/DL 65-99 H Results of this assay method may be falsely depressed orelevated if patient is taking sulfasalazine. BLOOD UREA NITROGEN (test code = BUN) 6 MG/DL 6-20 N GLOMERULAR FILTRATION RATE (test code = GFR) 115 51-120 N The Glomerular Filtration Rate is a calculated parameterbased on serum Creatinine, patient age and sex. GFR valuesless than 60 mL/min/1.73 square meters are indicative ofChronic Kidney Disease. Values less than 15 mL/min/1.73square meters indicate Kidney failure. The calculation forGFR is based on the CKD-EPI (2020) calculation. This formulais race indifferent and is the recommended formula for GFRby the National Kidney Foundation for Adults.The GFR will not calculate if the sex is unknown or if thepatient's age is <18 years. CREATININE (test code = CREAT) 0.45 MG/DL 0.60-1.00 L TOTAL PROTEIN (test code = PROT) 6.9 G/DL 6.4-8.2 N ALBUMIN (test code = ALB) 1.5 G/DL 3.4-5.0 L GLOBULIN (test code = GLOB) 5.4 G/DL 1.5-3.8 H ALBUMIN/GLOBULIN RATIO (test code = A/G) 0.3 1.1-2.2 L CALCIUM (test code = CA) 7.9 MG/DL 8.7-10.5 L BILIRUBIN TOTAL (test code = BILT) 0.2 MG/DL 0.0-1.0 N SGOT/AST (test code = AST) 25 Units/L 15-37 N Results of this assay method may be falsely depressed orelevated if patient is taking sulfasalazine. SGPT/ALT (test code = ALT) 8 Units/L 30-65 L Results of this assay method may be falsely depressed orelevated if patient is taking sulfasalazine. ALKALINE PHOSPHATASE TOTAL (test code = ALKP) 83 Units/L 50-136 N [id number] 03:48:00* Test Item Value Reference Range Interpretation Comme nts MAGNESIUM (test code = MAG) 2.1 MG/DL 1.8-2.4 N CBC W/AUTO [id number] 02:43:00* Test Item Value Reference Range Interpretation Comme nts WHITE BLOOD CELL (test code = WBC) 11.82 x10 3/uL 4.80-10.80 H RED BLOOD CELL (test code = RBC) 3.19 x10 6/uL 4.2-5.4 L HEMOGLOBIN (test code = HGB) 9.1 G/DL 12.0-16.0 L HEMATOCRIT (test code = HCT) 28.5 % 37-47 L MEAN CELL VOLUME (test code = MCV) 89.3 FL 81-99 N MEAN CELL HGB (test code = MCH) 28.5 PG 27-31 N MEAN CELL HGB CONCENTRATION (test code = MCHC) 31.9 G/DL 33-37 L RED CELL DISTRIBUTION WIDTH (test code = RDW) 12.7 % 11.5-14.5 N PLATELET COUNT (test code = PLT) 343 x10 3/uL 150-450 N MEAN PLATELET VOLUME (test code = MPV) 8.6 FL 7.4-10.4 N NEUTROPHIL % (test code = NT%) 71.1 % 42-86 N IMMATURE GRANULOCYTE % (test code = IG%) 1.3 % 0.0-2.0 N LYMPHOCYTE % (test code = LY%) 18.5 % 24-44 L MONOCYTE % (test code = MO%) 8.0 % 0.0-4.0 H EOSINOPHIL % (test code = EO%) 0.8 % 0.0-2.7 N BASOPHIL % (test code = BA%) 0.3 % 0.0-0.5 N NUCLEATED RBC % (test code = NRBC%) 0.0 % 0.0-0.0 N NEUTROPHIL # (test code = NT#) 8.41 x10 3/uL 1.8-7.7 H IMMATURE GRANULOCYTE # (test code = IG#) 0.15 x10 3/uL 0.00-0.03 H LYMPHOCYTE # (test code = LY#) 2.19 x10 3/uL 1.0-4.8 N MONOCYTE # (test code = MO#) 0.94 x10 3/uL 0.0-0.8 H EOSINOPHIL # (test code = EO#) 0.10 x10 3/uL 0.0-0.5 N BASOPHIL # (test code = BA#) 0.03 x10 3/uL 0.0-0.2 N NUCLEATED RBC # (test code = NRBC#) 0.0 X10 3/uL 0.0-0.2 N [id number] 02:05:00* Test Item Value Reference Range Interpretation Comme nts GLUBED (test code = GLUBED) 128 MG/DL 65-99 H Performed by cer tified winchman/crane operator at [facility] [id number] 20:56:00* Test Item Value Reference Range Interpretation Comme nts GLUBED (test code = GLUBED) 162 MG/DL 65-99 H Performed by cer tified winchman/crane operator at [facility] [id number] 15:58:00* Test Item Value Reference Range Interpretation Comme nts GLUBED (test code = GLUBED) 157 MG/DL 65-99 H Performed by cer tified winchman/crane operator at [facility] [id number] 11:22:00* Test Item Value Reference Range Interpretation Comme nts GLUBED (test code = GLUBED) 203 MG/DL 65-99 H Performed by cer tified winchman/crane operator at [facility] [id number] 05:15:00* Test Item Value Reference Range Interpretation Comme nts GLUBED (test code = GLUBED) 125 MG/DL 65-99 H Performed by cer tified winchman/crane operator at [facility] COMPREHENSIVE METABOLIC [id number] 03:27:00* Test Item Value Reference Range Interpretation Comme nts SODIUM (test code = NA) 139 MMOL/L 133-145 N POTASSIUM (test code = K) 3.5 MMOL/L 3.6-5.2 L CHLORIDE (test code = CL) 101 MMOL/L 100-108 N CARBON DIOXIDE (test code = CO2) 35 MMOL/L 22-32 H GLUCOSE (test code = GLU) 127 MG/DL 65-99 H Results of this assay method may be falsely depressed orelevated if patient is taking sulfasalazine. BLOOD UREA NITROGEN (test code = BUN) 6 MG/DL 6-20 N GLOMERULAR FILTRATION RATE (test code = GFR) 110 51-120 N The Glomerular Filtration Rate is a calculated parameterbased on serum Creatinine, patient age and sex. GFR valuesless than 60 mL/min/1.73 square meters are indicative ofChronic Kidney Disease. Values less than 15 mL/min/1.73square meters indicate Kidney failure. The calculation forGFR is based on the CKD-EPI (202) calculation. This formulais race indifferent and is the recommended formula for GFRby the National Kidney Foundation for Adults.The GFR will not calculate if the sex is unknown or if thepatient's age is <18 years. CREATININE (test code = CREAT) 0.54 MG/DL 0.60-1.00 L TOTAL PROTEIN (test code = PROT) 6.9 G/DL 6.4-8.2 N ALBUMIN (test code = ALB) 1.5 G/DL 3.4-5.0 L GLOBULIN (test code = GLOB) 5.4 G/DL 1.5-3.8 H ALBUMIN/GLOBULIN RATIO (test code = A/G) 0.3 1.1-2.2 L CALCIUM (test code = CA) 7.7 MG/DL 8.7-10.5 L BILIRUBIN TOTAL (test code = BILT) 0.3 MG/DL 0.0-1.0 N SGOT/AST (test code = AST) 20 Units/L 15-37 N Results of this assay method may be falsely depressed orelevated if patient is taking sulfasalazine. SGPT/ALT (test code = ALT) 9 Units/L 30-65 L Results of this assay method may be falsely depressed orelevated if patient is taking sulfasalazine. ALKALINE PHOSPHATASE TOTAL (test code = ALKP) 76 Units/L 50-136 N [id number] 03:27:00* Test Item Value Reference Range Interpretation Comme nts MAGNESIUM (test code = MAG) 2.0 MG/DL 1.8-2.4 N CBC W/AUTO [id number] 02:54:00* Test Item Value Reference Range Interpretation Comme nts WHITE BLOOD CELL (test code = WBC) 11.72 x10 3/uL 4.80-10.80 H RED BLOOD CELL (test code = RBC) 3.18 x10 6/uL 4.2-5.4 L HEMOGLOBIN (test code = HGB) 9.1 G/DL 12.0-16.0 L HEMATOCRIT (test code = HCT) 28.2 % 37-47 L MEAN CELL VOLUME (test code = MCV) 88.7 FL 81-99 N MEAN CELL HGB (test code = MCH) 28.6 PG 27-31 N MEAN CELL HGB CONCENTRATION (test code = MCHC) 32.3 G/DL 33-37 L RED CELL DISTRIBUTION WIDTH (test code = RDW) 12.6 % 11.5-14.5 N PLATELET COUNT (test code = PLT) 341 x10 3/uL 150-450 N MEAN PLATELET VOLUME (test code = MPV) 8.6 FL 7.4-10.4 N NEUTROPHIL % (test code = NT%) 70.5 % 42-86 N IMMATURE GRANULOCYTE % (test code = IG%) 1.4 % 0.0-2.0 N LYMPHOCYTE % (test code = LY%) 18.7 % 24-44 L MONOCYTE % (test code = MO%) 8.4 % 0.0-4.0 H EOSINOPHIL % (test code = EO%) 0.7 % 0.0-2.7 N BASOPHIL % (test code = BA%) 0.3 % 0.0-0.5 N NUCLEATED RBC % (test code = NRBC%) 0.0 % 0.0-0.0 N NEUTROPHIL # (test code = NT#) 8.27 x10 3/uL 1.8-7.7 H IMMATURE GRANULOCYTE # (test code = IG#) 0.16 x10 3/uL 0.00-0.03 H LYMPHOCYTE # (test code = LY#) 2.19 x10 3/uL 1.0-4.8 N MONOCYTE # (test code = MO#) 0.99 x10 3/uL 0.0-0.8 H EOSINOPHIL # (test code = EO#) 0.08 x10 3/uL 0.0-0.5 N BASOPHIL # (test code = BA#) 0.03 x10 3/uL 0.0-0.2 N NUCLEATED RBC # (test code = NRBC#) 0.0 X10 3/uL 0.0-0.2 N [id number] 01:36:00* Test Item Value Reference Range Interpretation Comme nts GLUBED (test code = GLUBED) 133 MG/DL 65-99 H Performed by cer tified winchman/crane operator at [facility] [id number] 22:04:00* Test Item Value Reference Range Interpretation Comme nts GLUBED (test code = GLUBED) 153 MG/DL 65-99 H Performed by cer tified winchman/crane operator at [facility] [id number] 21:11:00* Test Item Value Reference Range Interpretation Comme nts GLUBED (test code = GLUBED) 160 MG/DL 65-99 H Performed by cer tified winchman/crane operator at [facility] [id number] 15:46:00* Test Item Value Reference Range Interpretation Comme nts GLUBED (test code = GLUBED) 202 MG/DL 65-99 H Performed by cer tified winchman/crane operator at [facility] [id number] 10:52:00* Test Item Value Reference Range Interpretation Comme nts GLUBED (test code = GLUBED) 194 MG/DL 65-99 H Performed by cer tified winchman/crane operator at [facility] [id number] 06:23:00* Test Item Value Reference Range Interpretation Comme nts GLUBED (test code = GLUBED) 153 MG/DL 65-99 H Performed by cer tified winchman/crane operator at [facility] COMPREHENSIVE METABOLIC [id number] 03:54:00* Test Item Value Reference Range Interpretation Comme nts SODIUM (test code = NA) 138 MMOL/L 133-145 N POTASSIUM (test code = K) 3.4 MMOL/L 3.6-5.2 L CHLORIDE (test code = CL) 99 MMOL/L 100-108 L CARBON DIOXIDE (test code = CO2) 34 MMOL/L 22-32 H GLUCOSE (test code = GLU) 164 MG/DL 65-99 H Results of this assay method may be falsely depressed orelevated if patient is taking sulfasalazine. BLOOD UREA NITROGEN (test code = BUN) 6 MG/DL 6-20 N GLOMERULAR FILTRATION RATE (test code = GFR) 108 51-120 N The Glomerular Filtration Rate is a calculated parameterbased on serum Creatinine, patient age and sex. GFR valuesless than 60 mL/min/1.73 square meters are indicative ofChronic Kidney Disease. Values less than 15 mL/min/1.73square meters indicate Kidney failure. The calculation forGFR is based on the CKD-EPI (202) calculation. This formulais race indifferent and is the recommended formula for GFRby the National Kidney Foundation for Adults.The GFR will not calculate if the sex is unknown or if thepatient's age is <18 years. CREATININE (test code = CREAT) 0.59 MG/DL 0.60-1.00 L TOTAL PROTEIN (test code = PROT) 7.2 G/DL 6.4-8.2 N ALBUMIN (test code = ALB) 1.5 G/DL 3.4-5.0 L GLOBULIN (test code = GLOB) 5.7 G/DL 1.5-3.8 H ALBUMIN/GLOBULIN RATIO (test code = A/G) 0.3 1.1-2.2 L CALCIUM (test code = CA) 7.9 MG/DL 8.7-10.5 L BILIRUBIN TOTAL (test code = BILT) 0.2 MG/DL 0.0-1.0 N SGOT/AST (test code = AST) 16 Units/L 15-37 N Results of this assay method may be falsely depressed orelevated if patient is taking sulfasalazine. SGPT/ALT (test code = ALT) 10 Units/L 30-65 L Results of this assay method may be falsely depressed orelevated if patient is taking sulfasalazine. ALKALINE PHOSPHATASE TOTAL (test code = ALKP) 85 Units/L 50-136 N CBC W/AUTO [id number] 02:34:00* Test Item Value Reference Range Interpretation Comme nts WHITE BLOOD CELL (test code = WBC) 12.88 x10 3/uL 4.80-10.80 H RED BLOOD CELL (test code = RBC) 3.38 x10 6/uL 4.2-5.4 L HEMOGLOBIN (test code = HGB) 9.7 G/DL 12.0-16.0 L HEMATOCRIT (test code = HCT) 29.9 % 37-47 L MEAN CELL VOLUME (test code = MCV) 88.5 FL 81-99 N MEAN CELL HGB (test code = MCH) 28.7 PG 27-31 N MEAN CELL HGB CONCENTRATION (test code = MCHC) 32.4 G/DL 33-37 L RED CELL DISTRIBUTION WIDTH (test code = RDW) 12.7 % 11.5-14.5 N PLATELET COUNT (test code = PLT) 359 x10 3/uL 150-450 N MEAN PLATELET VOLUME (test code = MPV) 9.0 FL 7.4-10.4 N NEUTROPHIL % (test code = NT%) 73.9 % 42-86 N IMMATURE GRANULOCYTE % (test code = IG%) 1.0 % 0.0-2.0 N LYMPHOCYTE % (test code = LY%) 17.5 % 24-44 L MONOCYTE % (test code = MO%) 7.2 % 0.0-4.0 H EOSINOPHIL % (test code = EO%) 0.2 % 0.0-2.7 N BASOPHIL % (test code = BA%) 0.2 % 0.0-0.5 N NUCLEATED RBC % (test code = NRBC%) 0.0 % 0.0-0.0 N NEUTROPHIL # (test code = NT#) 9.50 x10 3/uL 1.8-7.7 H IMMATURE GRANULOCYTE # (test code = IG#) 0.13 x10 3/uL 0.00-0.03 H LYMPHOCYTE # (test code = LY#) 2.26 x10 3/uL 1.0-4.8 N MONOCYTE # (test code = MO#) 0.93 x10 3/uL 0.0-0.8 H EOSINOPHIL # (test code = EO#) 0.03 x10 3/uL 0.0-0.5 N BASOPHIL # (test code = BA#) 0.03 x10 3/uL 0.0-0.2 N NUCLEATED RBC # (test code = NRBC#) 0.0 X10 3/uL 0.0-0.2 N [id number] 00:49:00* Test Item Value Reference Range Interpretation Comme nts GLUBED (test code = GLUBED) 160 MG/DL 65-99 H Performed by cer tified winchman/crane operator at [id number] 21:29:00* Test Item Value Reference Range Interpretation Comme nts GLUBED (test code = GLUBED) 145 MG/DL 65-99 H Performed by cer tified winchman/crane operator at [facility] [id number] 16:08:00* Test Item Value Reference Range Interpretation Comme nts GLUBED (test code = GLUBED) 151 MG/DL 65-99 H Performed by cer tified winchman/crane operator at [facility] [id number] 10:43:00* Test Item Value Reference Range Interpretation Comme nts GLUBED (test code = GLUBED) 228 MG/DL 65-99 H Performed by cer tified winchman/crane operator at [facility] [id number] 03:27:00* Test Item Value Reference Range Interpretation Comme nts GLUBED (test code = GLUBED) 168 MG/DL 65-99 H Performed by yashira santana winchman/crane operator at [facility] COMPREHENSIVE METABOLIC [id number] 03:09:00* Test Item Value Reference Range Interpretation Comme nts SODIUM (test code = NA) 137 MMOL/L 133-145 N POTASSIUM (test code = K) 3.3 MMOL/L 3.6-5.2 L CHLORIDE (test code = CL) 100 MMOL/L 100-108 N CARBON DIOXIDE (test code = CO2) 31 MMOL/L 22-32 N GLUCOSE (test code = GLU) 177 MG/DL 65-99 H Results of this assay method may be falsely depressed orelevated if patient is taking sulfasalazine. BLOOD UREA NITROGEN (test code = BUN) 4 MG/DL 6-20 L GLOMERULAR FILTRATION RATE (test code = GFR) 113 51-120 N The Glomerular Filtration Rate is a calculated parameterbased on serum Creatinine, patient age and sex. GFR valuesless than 60 mL/min/1.73 square meters are indicative ofChronic Kidney Disease. Values less than 15 mL/min/1.73square meters indicate Kidney failure. The calculation forGFR is based on the CKD-EPI (202) calculation. This formulais race indifferent and is the recommended formula for GFRby the National Kidney Foundation for Adults.The GFR will not calculate if the sex is unknown or if thepatient's age is <18 years. CREATININE (test code = CREAT) 0.48 MG/DL 0.60-1.00 L TOTAL PROTEIN (test code = PROT) 6.8 G/DL 6.4-8.2 N ALBUMIN (test code = ALB) 1.6 G/DL 3.4-5.0 L GLOBULIN (test code = GLOB) 5.2 G/DL 1.5-3.8 H ALBUMIN/GLOBULIN RATIO (test code = A/G) 0.3 1.1-2.2 L CALCIUM (test code = CA) 7.8 MG/DL 8.7-10.5 L BILIRUBIN TOTAL (test code = BILT) 0.3 MG/DL 0.0-1.0 N SGOT/AST (test code = AST) 16 Units/L 15-37 N Results of this assay method may be falsely depressed orelevated if patient is taking sulfasalazine. SGPT/ALT (test code = ALT) < 6 Units/L 30-65 L Results of this assay method may be falsely depressed orelevated if patient is taking sulfasalazine. ALKALINE PHOSPHATASE TOTAL (test code = ALKP) 83 Units/L 50-136 N [id number] 03:09:00* Test Item Value Reference Range Interpretation Comme nts PHOSPHOROUS (test code = PHOS) 3.2 MG/DL 2.5-4.9 N [id number] 03:09:00* Test Item Value Reference Range Interpretation Comme nts MAGNESIUM (test code = MAG) 1.9 MG/DL 1.8-2.4 N CBC W/AUTO [id number] 02:37:00* Test Item Value Reference Range Interpretation Comme nts WHITE BLOOD CELL (test code = WBC) 12.80 x10 3/uL 4.80-10.80 H RED BLOOD CELL (test code = RBC) 3.34 x10 6/uL 4.2-5.4 L HEMOGLOBIN (test code = HGB) 9.6 G/DL 12.0-16.0 L HEMATOCRIT (test code = HCT) 29.3 % 37-47 L MEAN CELL VOLUME (test code = MCV) 87.7 FL 81-99 N MEAN CELL HGB (test code = MCH) 28.7 PG 27-31 N MEAN CELL HGB CONCENTRATION (test code = MCHC) 32.8 G/DL 33-37 L RED CELL DISTRIBUTION WIDTH (test code = RDW) 12.4 % 11.5-14.5 N PLATELET COUNT (test code = PLT) 327 x10 3/uL 150-450 N MEAN PLATELET VOLUME (test code = MPV) 8.9 FL 7.4-10.4 N NEUTROPHIL % (test code = NT%) 76.0 % 42-86 N IMMATURE GRANULOCYTE % (test code = IG%) 1.1 % 0.0-2.0 N LYMPHOCYTE % (test code = LY%) 15.8 % 24-44 L MONOCYTE % (test code = MO%) 6.6 % 0.0-4.0 H EOSINOPHIL % (test code = EO%) 0.3 % 0.0-2.7 N BASOPHIL % (test code = BA%) 0.2 % 0.0-0.5 N NUCLEATED RBC % (test code = NRBC%) 0.0 % 0.0-0.0 N NEUTROPHIL # (test code = NT#) 9.73 x10 3/uL 1.8-7.7 H IMMATURE GRANULOCYTE # (test code = IG#) 0.14 x10 3/uL 0.00-0.03 H LYMPHOCYTE # (test code = LY#) 2.02 x10 3/uL 1.0-4.8 N MONOCYTE # (test code = MO#) 0.85 x10 3/uL 0.0-0.8 H EOSINOPHIL # (test code = EO#) 0.04 x10 3/uL 0.0-0.5 N BASOPHIL # (test code = BA#) 0.02 x10 3/uL 0.0-0.2 N NUCLEATED RBC # (test code = NRBC#) 0.0 X10 3/uL 0.0-0.2 N [id number] 21:25:00* Test Item Value Reference Range Interpretation Comme nts GLUBED (test code = GLUBED) 137 MG/DL 65-99 H Performed by cer tified winchman/crane operator at [facility] [id number] 15:02:00* Test Item Value Reference Range Interpretation Comme nts GLUBED (test code = GLUBED) 215 MG/DL 65-99 H Performed by cer tified winchman/crane operator at [facility] VANCOMYCIN [id number] 14:15:00* Test Item Value Reference Range Interpretation Comme nts VANCOMYCIN TROUGH (test code = VANCT) < 2.0 MCG/ML 10.0-20.0 L The accepted therapeutic level for Methicillin-Resistant Staph Aureus (MRSA) is 15-20 mcg/mL. [id number] 10:48:00* Test Item Value Reference Range Interpretation Comme nts GLUBED (test code = GLUBED) 224 MG/DL 65-99 H Performed by cer tified winchman/crane operator at [facility] [id number] 05:29:00* Test Item Value Reference Range Interpretation Comme nts GLUBED (test code = GLUBED) 143 MG/DL 65-99 H Performed by cer tified winchman/crane operator at [facility] PROTHROMBIN [id number] 03:29:00* Test Item Value Reference Range Interpretation Comme nts PROTHROMBIN TIME PATIENT (test code = PTP) 15.2 SECONDS 9.6-12.3 H INTERNATIONAL NORMAL RATIO (test code = INR) 1.32 Recommended INR range (warfarin therapy): 2.0 - 3.0INR (International Normalized Ratio) should beused when interpreting oral anticoaglulant therapy. For atrial fibrillation and treatment orprevention of deep vein thrombosis. Patients with Palmaz-Yury stent *: 2.0 - 3.0 Patients with mechanical heart valve *: 2.5 - 3.5 Patients with flex-stent *: 3.0 - 4.0(*) = environmental coordinator's suggested range Is patient on anticoagulants? No AnticoagulantsTHROMBOPLASTIN TIME PARTIAL 2024-03-15 03:29:00* Test Item Value Reference Range Interpretation Comme nts THROMBOPLASTIN TIME PARTIAL (test code = PTT) 48.7 SECONDS 22.5-35.3 H *Therapeutic ran ge for heparin: 58.7 - 87.5 The aPTT tet should not be used to evaluate low moleculat weight heparin anticoagulant therapy. Is patient on anticoagulants? No AnticoagulantsCBC W/AUTO [id number] 03:20:00* Test Item Value Reference Range Interpretation Comme nts WHITE BLOOD CELL (test code = WBC) 15.52 x10 3/uL 4.80-10.80 H RED BLOOD CELL (test code = RBC) 3.62 x10 6/uL 4.2-5.4 L HEMOGLOBIN (test code = HGB) 10.4 G/DL 12.0-16.0 L HEMATOCRIT (test code = HCT) 32.0 % 37-47 L MEAN CELL VOLUME (test code = MCV) 88.4 FL 81-99 N MEAN CELL HGB (test code = MCH) 28.7 PG 27-31 N MEAN CELL HGB CONCENTRATION (test code = MCHC) 32.5 G/DL 33-37 L RED CELL DISTRIBUTION WIDTH (test code = RDW) 12.5 % 11.5-14.5 N PLATELET COUNT (test code = PLT) 348 x10 3/uL 150-450 N MEAN PLATELET VOLUME (test code = MPV) 8.9 FL 7.4-10.4 N NEUTROPHIL % (test code = NT%) 78.8 % 42-86 N IMMATURE GRANULOCYTE % (test code = IG%) 1.0 % 0.0-2.0 N LYMPHOCYTE % (test code = LY%) 13.0 % 24-44 L MONOCYTE % (test code = MO%) 6.8 % 0.0-4.0 H EOSINOPHIL % (test code = EO%) 0.1 % 0.0-2.7 N BASOPHIL % (test code = BA%) 0.3 % 0.0-0.5 N NUCLEATED RBC % (test code = NRBC%) 0.0 % 0.0-0.0 N NEUTROPHIL # (test code = NT#) 12.25 x10 3/uL 1.8-7.7 H IMMATURE GRANULOCYTE # (test code = IG#) 0.15 x10 3/uL 0.00-0.03 H LYMPHOCYTE # (test code = LY#) 2.01 x10 3/uL 1.0-4.8 N MONOCYTE # (test code = MO#) 1.05 x10 3/uL 0.0-0.8 H EOSINOPHIL # (test code = EO#) 0.02 x10 3/uL 0.0-0.5 N BASOPHIL # (test code = BA#) 0.04 x10 3/uL 0.0-0.2 N NUCLEATED RBC # (test code = NRBC#) 0.0 X10 3/uL 0.0-0.2 N COMPREHENSIVE METABOLIC [id number] 03:15:00* Test Item Value Reference Range Interpretation Comme nts SODIUM (test code = NA) 138 MMOL/L 133-145 N POTASSIUM (test code = K) 3.6 MMOL/L 3.6-5.2 N CHLORIDE (test code = CL) 101 MMOL/L 100-108 N CARBON DIOXIDE (test code = CO2) 32 MMOL/L 22-32 N GLUCOSE (test code = GLU) 136 MG/DL 65-99 H Results of this assay method may be falsely depressed orelevated if patient is taking sulfasalazine. BLOOD UREA NITROGEN (test code = BUN) 6 MG/DL 6-20 N GLOMERULAR FILTRATION RATE (test code = GFR) 109 51-120 N The Glomerular Filtration Rate is a calculated parameterbased on serum Creatinine, patient age and sex. GFR valuesless than 60 mL/min/1.73 square meters are indicative ofChronic Kidney Disease. Values less than 15 mL/min/1.73square meters indicate Kidney failure. The calculation forGFR is based on the CKD-EPI (2020) calculation. This formulais race indifferent and is the recommended formula for GFRby the National Kidney Foundation for Adults.The GFR will not calculate if the sex is unknown or if thepatient's age is <18 years. CREATININE (test code = CREAT) 0.57 MG/DL 0.60-1.00 L TOTAL PROTEIN (test code = PROT) 7.2 G/DL 6.4-8.2 N ALBUMIN (test code = ALB) 1.7 G/DL 3.4-5.0 L GLOBULIN (test code = GLOB) 5.5 G/DL 1.5-3.8 H ALBUMIN/GLOBULIN RATIO (test code = A/G) 0.3 1.1-2.2 L CALCIUM (test code = CA) 8.4 MG/DL 8.7-10.5 L BILIRUBIN TOTAL (test code = BILT) 0.4 MG/DL 0.0-1.0 N SGOT/AST (test code = AST) 15 Units/L 15-37 N Results of this assay method may be falsely depressed orelevated if patient is taking sulfasalazine. SGPT/ALT (test code = ALT) 8 Units/L 30-65 L Results of this assay method may be falsely depressed orelevated if patient is taking sulfasalazine. ALKALINE PHOSPHATASE TOTAL (test code = ALKP) 85 Units/L 50-136 N [id number] 03:15:00* Test Item Value Reference Range Interpretation Comme nts PHOSPHOROUS (test code = PHOS) 3.0 MG/DL 2.5-4.9 N [id number] 03:15:00* Test Item Value Reference Range Interpretation Comme nts MAGNESIUM (test code = MAG) 2.1 MG/DL 1.8-2.4 N [id number] 02:16:00* Test Item Value Reference Range Interpretation Comme nts GLUBED (test code = GLUBED) 134 MG/DL 65-99 H Performed by cer tified winchman/crane operator at [facility] [id number] 19:51:00* Test Item Value Reference Range Interpretation Comme nts GLUBED (test code = GLUBED) 123 MG/DL 65-99 H Performed by cer tified winchman/crane operator at [facility] [id number] 15:29:00* Test Item Value Reference Range Interpretation Comme nts GLUBED (test code = GLUBED) 154 MG/DL 65-99 H Performed by cer tified winchman/crane operator at [facility] [id number] 12:28:00* Test Item Value Reference Range Interpretation Comme nts GLUBED (test code = GLUBED) 197 MG/DL 65-99 H Performed by cer tified winchman/crane operator at [facility] [id number] 06:14:00* Test Item Value Reference Range Interpretation Comme nts GLUBED (test code = GLUBED) 229 MG/DL 65-99 H Performed by cer tified winchman/crane operator at [facility] COMPREHENSIVE METABOLIC [id number] 03:29:00* Test Item Value Reference Range Interpretation Comme nts SODIUM (test code = NA) 137 MMOL/L 133-145 N POTASSIUM (test code = K) 3.5 MMOL/L 3.6-5.2 L CHLORIDE (test code = CL) 102 MMOL/L 100-108 N CARBON DIOXIDE (test code = CO2) 26 MMOL/L 22-32 N GLUCOSE (test code = GLU) 195 MG/DL 65-99 H Results of this assay method may be falsely depressed orelevated if patient is taking sulfasalazine. BLOOD UREA NITROGEN (test code = BUN) 11 MG/DL 6-20 N GLOMERULAR FILTRATION RATE (test code = GFR) 97 51-120 N The Glomerular Filtration Rate is a calculated parameterbased on serum Creatinine, patient age and sex. GFR valuesless than 60 mL/min/1.73 square meters are indicative ofChronic Kidney Disease. Values less than 15 mL/min/1.73square meters indicate Kidney failure. The calculation forGFR is based on the CKD-EPI (202) calculation. This formulais race indifferent and is the recommended formula for GFRby the National Kidney Foundation for Adults.The GFR will not calculate if the sex is unknown or if thepatient's age is <18 years. CREATININE (test code = CREAT) 0.74 MG/DL 0.60-1.00 N TOTAL PROTEIN (test code = PROT) 6.9 G/DL 6.4-8.2 N ALBUMIN (test code = ALB) 1.7 G/DL 3.4-5.0 L GLOBULIN (test code = GLOB) 5.2 G/DL 1.5-3.8 H ALBUMIN/GLOBULIN RATIO (test code = A/G) 0.3 1.1-2.2 L CALCIUM (test code = CA) 8.7 MG/DL 8.7-10.5 N BILIRUBIN TOTAL (test code = BILT) 0.5 MG/DL 0.0-1.0 N SGOT/AST (test code = AST) 14 Units/L 15-37 L Results of this assay method may be falsely depressed orelevated if patient is taking sulfasalazine. SGPT/ALT (test code = ALT) 11 Units/L 30-65 L Results of this assay method may be falsely depressed orelevated if patient is taking sulfasalazine. ALKALINE PHOSPHATASE TOTAL (test code = ALKP) 84 Units/L 50-136 N [id number] 03:29:00* Test Item Value Reference Range Interpretation Comme nts PHOSPHOROUS (test code = PHOS) 2.8 MG/DL 2.5-4.9 N [id number] 03:29:00* Test Item Value Reference Range Interpretation Comme nts MAGNESIUM (test code = MAG) 2.1 MG/DL 1.8-2.4 N CBC W/AUTO [id number] 03:21:00* Test Item Value Reference Range Interpretation Comme nts WHITE BLOOD CELL (test code = WBC) 16.50 x10 3/uL 4.80-10.80 H RED BLOOD CELL (test code = RBC) 3.84 x10 6/uL 4.2-5.4 L HEMOGLOBIN (test code = HGB) 10.9 G/DL 12.0-16.0 L HEMATOCRIT (test code = HCT) 32.7 % 37-47 L MEAN CELL VOLUME (test code = MCV) 85.2 FL 81-99 N MEAN CELL HGB (test code = MCH) 28.4 PG 27-31 N MEAN CELL HGB CONCENTRATION (test code = MCHC) 33.3 G/DL 33-37 N RED CELL DISTRIBUTION WIDTH (test code = RDW) 12.2 % 11.5-14.5 N PLATELET COUNT (test code = PLT) 359 x10 3/uL 150-450 N MEAN PLATELET VOLUME (test code = MPV) 9.0 FL 7.4-10.4 N NEUTROPHIL % (test code = NT%) 77.0 % 42-86 N IMMATURE GRANULOCYTE % (test code = IG%) 1.1 % 0.0-2.0 N LYMPHOCYTE % (test code = LY%) 13.4 % 24-44 L MONOCYTE % (test code = MO%) 8.0 % 0.0-4.0 H EOSINOPHIL % (test code = EO%) 0.1 % 0.0-2.7 N BASOPHIL % (test code = BA%) 0.4 % 0.0-0.5 N NUCLEATED RBC % (test code = NRBC%) 0.0 % 0.0-0.0 N NEUTROPHIL # (test code = NT#) 12.72 x10 3/uL 1.8-7.7 H IMMATURE GRANULOCYTE # (test code = IG#) 0.18 x10 3/uL 0.00-0.03 H LYMPHOCYTE # (test code = LY#) 2.21 x10 3/uL 1.0-4.8 N MONOCYTE # (test code = MO#) 1.32 x10 3/uL 0.0-0.8 H EOSINOPHIL # (test code = EO#) 0.01 x10 3/uL 0.0-0.5 N BASOPHIL # (test code = BA#) 0.06 x10 3/uL 0.0-0.2 N NUCLEATED RBC # (test code = NRBC#) 0.0 X10 3/uL 0.0-0.2 N [id number] 02:04:00* Test Item Value Reference Range Interpretation Comme nts GLUBED (test code = GLUBED) 194 MG/DL 65-99 H Performed by cer tified winchman/crane operator at [facility] [id number] 20:56:00* Test Item Value Reference Range Interpretation Comme nts GLUBED (test code = GLUBED) 221 MG/DL 65-99 H Performed by cer tified winchman/crane operator at [facility] [id number] 15:23:00* Test Item Value Reference Range Interpretation Comme nts GLUBED (test code = GLUBED) 276 MG/DL 65-99 H Performed by cer tified winchman/crane operator at [facility] BASIC METABOLIC [id number] 12:08:00* Test Item Value Reference Range Interpretation Comme nts SODIUM (test code = NA) 132 MMOL/L 133-145 L POTASSIUM (test code = K) 4.4 MMOL/L 3.6-5.2 CHLORIDE (test code = CL) 99 MMOL/L 100-108 L CARBON DIOXIDE (test code = CO2) 21 MMOL/L 22-32 L GLUCOSE (test code = GLU) 265 MG/DL 65-99 H Results of this assay method may be falsely depressed orelevated if patient is taking sulfasalazine. BLOOD UREA NITROGEN (test code = BUN) 12 MG/DL 6-20 N GLOMERULAR FILTRATION RATE (test code = GFR) 80 51-120 N The Glomerular Filtration Rate is a calculated parameterbased on serum Creatinine, patient age and sex. GFR valuesless than 60 mL/min/1.73 square meters are indicative ofChronic Kidney Disease. Values less than 15 mL/min/1.73square meters indicate Kidney failure. The calculation forGFR is based on the CKD-EPI (202) calculation. This formulais race indifferent and is the recommended formula for GFRby the National Kidney Foundation for Adults.The GFR will not calculate if the sex is unknown or if thepatient's age is <18 years. CREATININE (test code = CREAT) 0.87 MG/DL 0.60-1.00 N CALCIUM (test code = CA) 8.8 MG/DL 8.7-10.5 N [id number] 11:08:00* Test Item Value Reference Range Interpretation Comme nts GLUBED (test code = GLUBED) 256 MG/DL 65-99 H Performed by cer tified winchman/crane operator at [facility] DRUG OF ABUSE SCREEN [id number] 10:44:00* Test Item Value Reference Range Interpretation Comments UR COCAINE (test code = COCAU) NEGATIVE NEGATIVE UR MDMA (test code = MDMAQLU) NEGATIVE NEGATIVE UR CANNABINOIDS (test code = CANU) NEGATIVE NEGATIVE UR AMPHETAMINE (test code = AMPHU) NEGATIVE NEGATIVE UR BARBITURATE QUAL (test code = BARBQLU) NEGATIVE NEGATIVE UR BENZODIAZEPINE (test code = BENZU) NEGATIVE NEGATIVE UR OPIATES QUAL (test code = OPIAQLU) POSITIVE NEGATIVE A If confirmatory testing required, contact laboratory. UR PHENCYCLIDINE (PCP) (test code = PHENCU) NEGATIVE NEGATIVE Urine Drug Abuse Screen provides preliminary results thatmay be confirmed by alternate methods (i.e., GC/MS) at [facility]. Results of screen may not be usedin criminal justice, job performance or professionalcredential review, or custody issues. Negative [place] Level ng/ml ----- Cocaine 300 Methamphetamine (Ecstacy) 500 Cannabinoids (THC) 50 Amphetamine 1000 Barbiturates 200 Benzodiazepines 200 Opiates 300 Phencyclidine (PCP) 25 PLEASE ADD ON TO URINE IN LAB AT [facility] METABOLIC [id number] 08:25:00* Test Item Value Reference Range Interpretation Comme nts SODIUM (test code = NA) 135 MMOL/L 133-145 N POTASSIUM (test code = K) 3.0 MMOL/L 3.6-5.2 L CHLORIDE (test code = CL) 101 MMOL/L 100-108 N CARBON DIOXIDE (test code = CO2) 26 MMOL/L 22-32 N GLUCOSE (test code = GLU) 200 MG/DL 65-99 H Results of this assay method may be falsely depressed orelevated if patient is taking sulfasalazine. BLOOD UREA NITROGEN (test code = BUN) 15 MG/DL 6-20 N GLOMERULAR FILTRATION RATE (test code = GFR) 76 51-120 N The Glomerular Filtration Rate is a calculated parameterbased on serum Creatinine, patient age and sex. GFR valuesless than 60 mL/min/1.73 square meters are indicative ofChronic Kidney Disease. Values less than 15 mL/min/1.73square meters indicate Kidney failure. The calculation forGFR is based on the CKD-EPI (2020) calculation. This formulais race indifferent and is the recommended formula for GFRby the National Kidney Foundation for Adults.The GFR will not calculate if the sex is unknown or if thepatient's age is <18 years. CREATININE (test code = CREAT) 0.90 MG/DL 0.60-1.00 N CALCIUM (test code = CA) 8.8 MG/DL 8.7-10.5 N [id number] 08:25:00* Test Item Value Reference Range Interpretation Comme nts PHOSPHOROUS (test code = PHOS) 2.1 MG/DL 2.5-4.9 L [id number] 08:25:00* Test Item Value Reference Range Interpretation Comme nts MAGNESIUM (test code = MAG) 2.0 MG/DL 1.8-2.4 N GLYCOSYLATED HEMOGLOBIN (HA1C)2024-03-13 07:53:00* Test Item Value Reference Range Interpretation Comme nts GLYCOSYLATED HEMOGLOBIN (HA1 C) (test code = GLYHGB) 13.3 % TOT HB 4.5-6.2 H COMPREHENSIVE METABOLIC [id number] 07:43:00* Test Item Value Reference Range Interpretation Comme nts SODIUM (test code = NA) 135 MMOL/L 133-145 N POTASSIUM (test code = K) 3.1 MMOL/L 3.6-5.2 L VERIFIED BY REPE AT ANALYSIS ON SAME SPECIMEN. CHLORIDE (test code = CL) 101 MMOL/L 100-108 N CARBON DIOXIDE (test code = CO2) 22 MMOL/L 22-32 N GLUCOSE (test code = GLU) 206 MG/DL 65-99 H Results of this assay method may be falsely depressed orelevated if patient is taking sulfasalazine. BLOOD UREA NITROGEN (test code = BUN) 16 MG/DL 6-20 N GLOMERULAR FILTRATION RATE (test code = GFR) 76 51-120 N The Glomerular Filtration Rate is a calculated parameterbased on serum Creatinine, patient age and sex. GFR valuesless than 60 mL/min/1.73 square meters are indicative ofChronic Kidney Disease. Values less than 15 mL/min/1.73square meters indicate Kidney failure. The calculation forGFR is based on the CKD-EPI (2020) calculation. This formulais race indifferent and is the recommended formula for GFRby the National Kidney Foundation for Adults.The GFR will not calculate if the sex is unknown or if thepatient's age is <18 years. CREATININE (test code = CREAT) 0.90 MG/DL 0.60-1.00 N TOTAL PROTEIN (test code = PROT) 6.5 G/DL 6.4-8.2 N ALBUMIN (test code = ALB) 1.7 G/DL 3.4-5.0 L GLOBULIN (test code = GLOB) 4.8 G/DL 1.5-3.8 H ALBUMIN/GLOBULIN RATIO (test code = A/G) 0.4 1.1-2.2 L CALCIUM (test code = CA) 8.4 MG/DL 8.7-10.5 L BILIRUBIN TOTAL (test code = BILT) 0.4 MG/DL 0.0-1.0 N SGOT/AST (test code = AST) 11 Units/L 15-37 L Results of this assay method may be falsely depressed orelevated if patient is taking sulfasalazine. SGPT/ALT (test code = ALT) 11 Units/L 30-65 L Results of this assay method may be falsely depressed orelevated if patient is taking sulfasalazine. ALKALINE PHOSPHATASE TOTAL (test code = ALKP) 85 Units/L 50-136 N THIS IS A RECOLLECT [id number] 07:43:00* Test Item Value Reference Range Interpretation Comme nts PHOSPHOROUS (test code = PHOS) 2.2 MG/DL 2.5-4.9 L THIS IS A RECOLLECT [id number] 07:43:00* Test Item Value Reference Range Interpretation Comme nts MAGNESIUM (test code = MAG) 2.0 MG/DL 1.8-2.4 N THIS IS A RECOLLECT THYROID STIMULATING [id number] 07:43:00* Test Item Value Reference Range Interpretation Comme nts THYROID STIMULATING HORMONE (test code = TSH) 0.45 0.42-5.47 N [employer] Units/LResults of this assay method may be falsely depressed orelevated if patient is taking high doses of Biotin. THIS IS A RECOLLECT [id number] 07:37:00* Test Item Value Reference Range Interpretation Comme nts GLUBED (test code = GLUBED) 216 MG/DL 65-99 H Performed by cer tified winchman/crane operator at [facility] [id number] 06:38:00* Test Item Value Reference Range Interpretation Comme nts GLUBED (test code = GLUBED) 213 MG/DL 65-99 H Performed by cer tified winchman/crane operator at [facility] CBC W/AUTO [id number] 06:21:00* Test Item Value Reference Range Interpretation Comme nts WHITE BLOOD CELL (test code = WBC) 15.59 x10 3/uL 4.80-10.80 H RED BLOOD CELL (test code = RBC) 3.16 x10 6/uL 4.2-5.4 L HEMOGLOBIN (test code = HGB) 9.2 G/DL 12.0-16.0 L HEMATOCRIT (test code = HCT) 27.1 % 37-47 L MEAN CELL VOLUME (test code = MCV) 85.8 FL 81-99 N MEAN CELL HGB (test code = MCH) 29.1 PG 27-31 N MEAN CELL HGB CONCENTRATION (test code = MCHC) 33.9 G/DL 33-37 N RED CELL DISTRIBUTION WIDTH (test code = RDW) 12.2 % 11.5-14.5 N PLATELET COUNT (test code = PLT) 289 x10 3/uL 150-450 N MEAN PLATELET VOLUME (test code = MPV) 10.0 FL 7.4-10.4 N NEUTROPHIL % (test code = NT%) 81.0 % 42-86 N IMMATURE GRANULOCYTE % (test code = IG%) 1.0 % 0.0-2.0 N LYMPHOCYTE % (test code = LY%) 9.4 % 24-44 L MONOCYTE % (test code = MO%) 8.2 % 0.0-4.0 H EOSINOPHIL % (test code = EO%) 0.1 % 0.0-2.7 N BASOPHIL % (test code = BA%) 0.3 % 0.0-0.5 N NUCLEATED RBC % (test code = NRBC%) 0.0 % 0.0-0.0 N NEUTROPHIL # (test code = NT#) 12.64 x10 3/uL 1.8-7.7 H IMMATURE GRANULOCYTE # (test code = IG#) 0.16 x10 3/uL 0.00-0.03 H LYMPHOCYTE # (test code = LY#) 1.46 x10 3/uL 1.0-4.8 N MONOCYTE # (test code = MO#) 1.28 x10 3/uL 0.0-0.8 H EOSINOPHIL # (test code = EO#) 0.01 x10 3/uL 0.0-0.5 N BASOPHIL # (test code = BA#) 0.04 x10 3/uL 0.0-0.2 N NUCLEATED RBC # (test code = NRBC#) 0.0 X10 3/uL 0.0-0.2 N UA RFLX MICROSCOPIC [id number] 05:51:00* Test Item Value Reference Range Interpretation Comme nts UA COLOR (test code = COLU) Light-Yellow YELLOW UA APPEARANCE (test code = APPU) Turbid CLEAR UA GLUCOSE DIPSTICK (test code = DGLUU) > 1000 mg/dL NEGATIVE A UA BILIRUBIN DIPSTICK (test code = BILU) NEGATIVE NEGATIVE UA KETONE DIPSTICK (test code = KETU) > 150 mg/dL NEGATIVE A UA SPECIFIC GRAVITY (test code = SGU) 1.032 1.001-1.035 N UA BLOOD DIPSTICK (test code = NALINI) 1+ NEGATIVE A UA PH DIPSTICK (test code = MAGGIE) 5.5 5.5-7.0 N UA PROTEIN DIPSTICK (test code = PROU) 30 mg/dL NEGATIVE A UA UROBILINOGEN DIPSTICK (test code = URO) NORMAL mg/dL NORMAL UA NITRITE DIPSTICK (test code = ROLO) NEGATIVE NEGATIVE UA LEUKOCYTE ESTERASE DIPSTICK (test code = LEUU) 500 NEGATIVE A UA COMMENT (test code = COMU) VOLUME 10-12 ML URINE SPECIMEN DESCRIPTION (test code = UASPEC) Clean Catch UA WBC (test code = WBCU) > 50 #/HPF 0-10 A UA SQUAMOUS CELLS (test code = SQU) > 100 #/LPF <100 A UA CULTURE NEEDED? (test code = UACULT) Criteria not met Indication for culture: Suprapubic PainURINE SOURCE: Clean CatchUA MICROSCOPIC 2024-03-13 05:51:00* Test Item Value Reference Range Interpretation Comme nts UA RBC (test code = RBCU) 0-2 #/HPF NONE SEEN Indication for culture: Suprapubic PainURINE SOURCE: Clean [id number] 05:39:00* Test Item Value Reference Range Interpretation Comme nts GLUBED (test code = GLUBED) 192 MG/DL 65-99 H Performed by cer tified winchman/crane operator at [facility] [id number] 04:44:00* Test Item Value Reference Range Interpretation Comme nts GLUBED (test code = GLUBED) 178 MG/DL 65-99 H Performed by cer tified winchman/crane operator at [facility] [id number] 03:35:00* Test Item Value Reference Range Interpretation Comme nts GLUBED (test code = GLUBED) 244 MG/DL 65-99 H Performed by cer tified winchman/crane operator at [facility] VENOUS BLOOD [id number] 03:15:00* Test Item Value Reference Range Interpretation Comme [facility] VENOUS BLOOD GAS PH (test code = PHV) 7.310 7.310-7.410 N VENOUS BLOOD GAS PCO2 (test code = PCO2V) 34.0 mmHg 41.0-51.0 L VENOUS BLOOD GAS PO2 (test code = PO2V) 25.8 mmHg 30-55 L VBG HCO3 (test code = HCO3V) 16.7 mmol/L 22-27 L VBG BASE EXCESS (test code = JH) -8.6 See_Comment L [Automated message] The system which generated this result transmitted reference range: -2.0 to +2.0. The reference range was not used to interpret this result as normal/abnormal. VENOUS BLOOD GAS TYPE (test code = TYPEV) Venous VBG VENT MODE (test code = MODEV) RA VENOUS BLOOD GAS SITE (test code = SITEV) OT TOTAL HGB (test code = THB) 11.7 G/DL 12.0-16.0 L OXYHEMOGLOBIN (test code = OOHGBT) 45.0 % 92.0-98.0 L CARBOXYHEMOGLOBIN (test code = HOHGBT) 1.4 % 0.5-1.5 N METHEMOGLOBIN (test code = METHGB) 0.3 % 0.4-1.5 L [id number] 02:24:00* Test Item Value Reference Range Interpretation Comme nts GLUBED (test code = GLUBED) 317 MG/DL 65-99 H Performed by cer tified winchman/crane operator at [facility] - CT LOWER EXTRM W/CON [id number] 02:02:00 [facility] : 1970 Sex: F Patient Name: TSERING BRAUN Unit No: [id number] EXAMS: CPT CODE: [id number] CT LOWER EXTRM W/[place] [id number] Reason: ABSCESS Exam: CT with contrast. Location: H 12 History: ABSCESS; DKA, CELLULITIS Technique: Enhanced spiral slices were taken through the right foot. Sagittal and coronal reformations were performed. One or more of the following dose reduction techniques were used: Automated exposure co ntrol, adjustment of the mA and/or kV according to patient size, and/or utilization of iterative reconstruction technique. Findings: Soft tissue swelling is present about the ankle and foot. There kendal 3.3 x 0.8 x 0.8 cm fluid collection within the proximal abductor hallucis muscle near the calcaneal origin in keeping with the history of abscess. The adductor hallucis muscle appears edematous with phlegmon. No fluid collection or organized abscess is seen. The remaining intrinsic foot musculature is unremarkable. The bony cortices are intact. No bony destructive changes are seen. The joint spaces well-preserved. No joint effusion is seen. IMPRESSION: 1. 2.3 x 0.8 x 0.8 cm abscess within theproximal abductor hallucis muscle in keeping with an abscess. Edema and phlegmon is seen within the adductor hallucis muscle without abscess. 2. No evidence of osteomyelitis. Electronically signed by: Jamal Rebollar MD 03/13/2024 02:02 AM CDT Electronically Signedby Jamal Rebollar MD on 03/13/2024 at 0202 Reported and signed by: Jamal Rebollar MD CC: Allison Meredith DO; Nyasia Tang; Chapin Bar MD Technologist: [facility] fruit or nut farmworker; DEDE Puentes Trscrpt Dt/ (020)YeseniaFC Orig Print D/T: S: 03/13/2024 (0205) CTDI: DLP: [facility] NAME: TSERING BRAUN [id number] SP[address] PHYS: JUAN MIGUEL MeredithAllison [place] [address] : 1970 AGE: 54 SEX: F LOC: FUNMI Steven PHONE #: [phone] EXAM DATE: 03/13/2024 STATUS: ADM IN FAX #: RAD NO: DC Dt: PAGE 1 Signed ReportUA RFLX MICROSCOPIC [id number] 02:00:00* Test Item Value Reference Range Interpretation Comme nts UA COLOR (test code = COLU) Light-Yellow YELLOW UA APPEARANCE (test code = APPU) CLEAR CLEAR UA GLUCOSE DIPSTICK (test code = DGLUU) > 1000 mg/dL NEGATIVE A UA BILIRUBIN DIPSTICK (test code = BILU) NEGATIVE NEGATIVE UA KETONE DIPSTICK (test cod e = KETU) > 150 mg/dL NEGATIVE A UA SPECIFIC GRAVITY (test code = SGU) 1.038 1.001-1.035 H UA BLOOD DIPSTICK (test code = NALINI) TRACE NEGATIVE UA PH DIPSTICK (test code = MAGGIE) 5.5 5.5-7.0 N UA PROTEIN DIPSTICK (test code = PROU) 30 mg/dL NEGATIVE A UA UROBILINOGEN DIPSTICK (test code = URO) NORMAL mg/dL NORMAL UA NITRITE DIPSTICK (test code = ROLO) NEGATIVE NEGATIVE UA LEUKOCYTE ESTERASE DIPSTICK (test code = LEUU) 250 NEGATIVE A UA COMMENT (test code = COMU) VOLUME 10-12 ML URINE SPECIMEN DESCRIPTION (test code = UASPEC) Clean Catch UA WBC (test code = WBCU) > 50 #/HPF 0-10 A UA SQUAMOUS CELLS (test code = SQU) 0 - 20 #/LPF <100 UA CULTURE NEEDED? (test cod e = UACULT) Criteria met Indication for culture: RiskForSepsis-no oth srcURINE SOURCE: Clean CatchUA [id number] 02:00:00* Test Item Value Reference Range Interpretation Comme nts UA RBC (test code = RBCU) 0-2 #/HPF NONE SEEN UA TRANSITIONAL CELLS (test code = TRANU) RARE #/LPF NONE SEEN UA MUCUS (test code = MUCU) RARE #/lpf NONE SEEN Indication for culture: RiskForSepsis-no oth srcURINE SOURCE: Clean CatchGLUBED 2024-03-13 01:03:00* Test Item Value Reference Range Interpretation Comme nts GLUBED (test code = GLUBED) 333 MG/DL 65-99 H Performed by cer tified winchman/crane operator at [facility] BASIC METABOLIC [id number] 00:58:00* Test Item Value Reference Range Interpretation Comme nts SODIUM (test code = NA) 134 MMOL/L 133-145 N POTASSIUM (test code = K) 4.5 MMOL/L 3.6-5.2 N CHLORIDE (test code = CL) 102 MMOL/L 100-108 N CARBON DIOXIDE (test code = CO2) 15 MMOL/L 22-32 L GLUCOSE (test code = GLU) 334 MG/DL 65-99 H Results of this assay method may be falsely depressed orelevated if patient is taking sulfasalazine. BLOOD UREA NITROGEN (test code = BUN) 19 MG/DL 6-20 N GLOMERULAR FILTRATION RATE (test code = GFR) 74 51-120 N The Glomerular Filtration Rate is a calculated parameterbased on serum Creatinine, patient age and sex. GFR valuesless than 60 mL/min/1.73 square meters are indicative ofChronic Kidney Disease. Values less than 15 mL/min/1.73square meters indicate Kidney failure. The calculation forGFR is based on the CKD-EPI (2020) calculation. This formulais race indifferent and is the recommended formula for GFRby the National Kidney Foundation for Adults.The GFR will not calculate if the sex is unknown or if thepatient's age is <18 years. CREATININE (test code = CREAT) 0.92 MG/DL 0.60-1.00 N CALCIUM (test code = CA) 7.6 MG/DL 8.7-10.5 L ACETONE [id number] 23:21:00* Test Item Value Reference Range Interpretation Comme nts ACETONE BLOOD (test code = ACETB) Large Negative A [id number] 22:21:00* Test Item Value Reference Range Interpretation Comme nts GLUBED (test code = GLUBED) 349 MG/DL 65-99 H Performed by cer tified winchman/crane operator at [facility] CBC W/AUTO [id number] 20:32:00* Test Item Value Reference Range Interpretation Comme nts WHITE BLOOD CELL (test code = WBC) 17.42 x10 3/uL 4.80-10.80 H Results called t o and read back by ELLY MAYER;2030, 03/12/24, [id number]. RED BLOOD CELL (test code = RBC) 4.37 x10 6/uL 4.2-5.4 N HEMOGLOBIN (test code = HGB) 12.6 G/DL 12.0-16.0 N HEMATOCRIT (test code = HCT) 37.1 % 37-47 N MEAN CELL VOLUME (test code = MCV) 84.9 FL 81-99 N MEAN CELL HGB (test code = MCH) 28.8 PG 27-31 N MEAN CELL HGB CONCENTRATION (test code = MCHC) 34.0 G/DL 33-37 N RED CELL DISTRIBUTION WIDTH (test code = RDW) 12.0 % 11.5-14.5 N PLATELET COUNT (test code = PLT) 388 x10 3/uL 150-450 N MEAN PLATELET VOLUME (test code = MPV) 9.0 FL 7.4-10.4 N NEUTROPHIL % (test code = NT%) 87.1 % 42-86 H IMMATURE GRANULOCYTE % (test code = IG%) 1.4 % 0.0-2.0 N LYMPHOCYTE % (test code = LY%) 5.5 % 24-44 L MONOCYTE % (test code = MO%) 5.7 % 0.0-4.0 H EOSINOPHIL % (test code = EO%) 0.0 % 0.0-2.7 N BASOPHIL % (test code = BA%) 0.3 % 0.0-0.5 N NUCLEATED RBC % (test code = NRBC%) 0.0 % 0.0-0.0 N NEUTROPHIL # (test code = NT#) 15.19 x10 3/uL 1.8-7.7 H IMMATURE GRANULOCYTE # (test code = IG#) 0.24 x10 3/uL 0.00-0.03 H LYMPHOCYTE # (test code = LY#) 0.95 x10 3/uL 1.0-4.8 L MONOCYTE # (test code = MO#) 0.99 x10 3/uL 0.0-0.8 H EOSINOPHIL # (test code = EO#) 0.00 x10 3/uL 0.0-0.5 N BASOPHIL # (test code = BA#) 0.05 x10 3/uL 0.0-0.2 N NUCLEATED RBC # (test code = NRBC#) 0.0 X10 3/uL 0.0-0.2 N [id number] 20:20:00* Test Item Value Reference Range Interpretation Comme nts LIPASE (test code = LIP) 23 U/L 16-77 N New Reference Ranges of 16-77 U/L please reviewrevised from 73-393 U/L on 07/18/2023 : High sensitivity troponinNT PRO-BRAIN NATRIURETIC [id number] 20:20:00* Test Item Value Reference Range Interpretation Comme nts NT PRO-BRAIN NATRIURETIC PEPTI (test code = PROBNP) 83 PG/ML 0-125 N Results of this assay method may be falsely depressed orelevated if patient is taking high doses of Biotin. : High sensitivity troponinTROP-I HIGH [id number] 20:20:00* Test Item Value Reference Range Interpretation Comme nts TROP-I HIGH SENSITIVITY (test code = TROPIHS) < 4 ng/L < 51 - The use of serial sampling and testing protocol is a recommended practice.- An elevated troponin level alone is often not sufficient for diagnosis of myocardial infarction.Results of this assay method may be falsely depressed orelevated if patient is taking high doses of Biotin. : High sensitivity troponinCV CALL [id number] 20:20:00* Test Item Value Reference Range Interpretation Comme nts CV CALL CHEM (test code = CVC) Called Results called t o and read back by ELLY MAYER RN;.for analyte(s): GLU .at 201903/12/24; by [id number]. : High sensitivity troponinBASIC METABOLIC [id number] 20:20:00* Test Item Value Reference Range Interpretation Comme nts SODIUM (test code = NA) 131 MMOL/L 133-145 L POTASSIUM (test code = K) 4.2 MMOL/L 3.6-5.2 N CHLORIDE (test code = CL) 92 MMOL/L 100-108 L CARBON DIOXIDE (test code = CO2) 19 MMOL/L 22-32 L GLUCOSE (test code = GLU) 424 MG/DL 65-99 HH Results of this assay method may be falsely depressed orelevated if patient is taking sulfasalazine. BLOOD UREA NITROGEN (test code = BUN) 24 MG/DL 6-20 H GLOMERULAR FILTRATION RATE (test code = GFR) 53 51-120 N The Glomerular Filtration Rate is a calculated parameterbased on serum Creatinine, patient age and sex. GFR valuesless than 60 mL/min/1.73 square meters are indicative ofChronic Kidney Disease. Values less than 15 mL/min/1.73square meters indicate Kidney failure. The calculation forGFR is based on the CKD-EPI (2020) calculation. This formulais race indifferent and is the recommended formula for GFRby the National Kidney Foundation for Adults.The GFR will not calculate if the sex is unknown or if thepatient's age is <18 years. CREATININE (test code = CREAT) 1.22 MG/DL 0.60-1.00 H CALCIUM (test code = CA) 9.5 MG/DL 8.7-10.5 N : High sensitivity troponinHEPATIC FUNCTION [id number] 20:20:00* Test Item Value Reference Range Interpretation Comme nts TOTAL PROTEIN (test code = PROT) 8.4 G/DL 6.4-8.2 H ALBUMIN (test code = ALB) 2.3 G/DL 3.4-5.0 L GLOBULIN (test code = GLOB) 6.1 G/DL 1.5-3.8 H ALBUMIN/GLOBULIN RATIO (test code = A/G) 0.4 1.1-2.2 L BILIRUBIN TOTAL (test code = BILT) 0.7 MG/DL 0.0-1.0 N BILIRUBIN DIRECT (test code = BILD) 0.2 MG/DL 0.0-0.3 N BILIRUBIN INDIRECT (test code = BILIND) 0.5 MG/DL 0.0-0.7 N SGOT/AST (test code = AST) 14 Units/L 15-37 L Results of this assay method may be falsely depressed orelevated if patient is taking sulfasalazine. SGPT/ALT (test code = ALT) 15 Units/L 30-65 L Results of this assay method may be falsely depressed orelevated if patient is taking sulfasalazine. ALKALINE PHOSPHATASE TOTAL (test code = ALKP) 108 Units/L 50-136 N : High sensitivity troponinLACTIC [id number] 20:15:00* Test Item Value Reference Range Interpretation Comme nts LACTIC ACID (test code = LACT) 1.5 MMOL/L 0.5-2.2 N - XR CHEST 1 [id number] 19:19:00 [facility] 1970 Sex: F Patient Name: TSERING BRAUN Unit No: [id number] EXAMS: CPT CODE: [id number] XR CHEST 1 V 05217 Reason: CODE SEPSIS LOCATION: Q15 HISTORY: 54-year-old female presents with injury to her right foot. Pulmonary symptoms not otherwise specified. COMMENT: A frontal chest radiograph was obtained at the bedside at 6:52 p.m. FINDINGS: The lungs are clear and well-aerated. The cardiac silhouette, lizzy, and mediastinum are within normal limits. The skeleton is intact, and the surrounding soft tissues are unremarkable. IMPRESSION: Unremarkable portable examination of the chest. Electronically signed by: Jaxon Michel MD 03/12/2024 07:19 PM CDT RP at 1919 Reported and signed by: Jaxon Michel MD CC: Kalyan Ag RIVETING MACHINE OPERATOR; Tamia Noyola MD Technologist: Selvin Whelan, RT Trscrpt Dt/ (1918)[email or web address] Orig Print D/T: S: 03/12/2024 (1920) [facility] NAME: TSERING BRAUN [address] PHYS: Tam[place] [address] : 1970 AGE: 54 SEX: F LOC: [place] PHONE #: [phone] EXAM DATE: 03/12/2024 STATUS: REG ER FAX #: RAD NO: DC Dt: PAGE 1 Signed Report- XR FOOT 3+V [id number] 19:17:00 [facility] 1970 Sex: F Patient Name: TSERING BRAUN Unit No: [id number] EXAMS: CPT CODE: [id number] XR FOOT 3+[place] [address] Reason: RIGHT FOOT FB LOCATION: Q15 HISTORY: 54-year-old female presents with pain in her right foot. Clinical concern is a foreign body. COMMENT: Frontal, oblique, and lateral radiographs of the right foot were examined. FINDINGS: The skeleton is mildly demineralized, but intact. The joint spaces are unremarkable The soft tissues appear mildly swollen. No gas or radiopaque foreign object are seen. IMPRESSION: Mild soft tissue swelling seen in this patient's right foot. Electronically signed by: Jaxon Michel MD 03/12/2024 07:17 PM CDT at 1917 Reported and signed by: Jaxon Michel MD CC: Kalyan Ag RIVETING MACHINE OPERATOR;Tamia Noyloa MD Technologist: Selvin Whelan RT Trscrpt Dt/ (1916)[email or web address] Orig Print D/T: S: 03/12/2024 (1918) [facility] NAME: TSERING BRAUN [address] PHYS: Tamia Joshi [place] [address] : 1970 AGE: 54 SEX: F LOC: [place] PHONE #: [phone] EXAM DATE: 03/12/2024 STATUS: REG ER FAX #: RAD NO: DC Dt: PAGE 1 Signed [id number] 18:40:00* Test Item Value Reference Range Interpretation Comme nts GLUBED (test code = GLUBED) 411 MG/DL 65-99 HH Performed by cer esther winchman/crane operator at [facility] POCT SARS-COV-2 ANTIGEN (BINAX NOW)2023-05-25 00:17:00* Test Item Value Reference Range Interpretation Comme nts POCT SARS-COV-2 ANTIGEN (sparkle t code = 95149-6) Positive Not Detected A On board controls acceptable with C Line (test code = 3574) Yes Lab Interpretation (test cod e = 89681-7) Abnormal [facility] GLUCOSE (AUTOMATED)2022-03-08 17:14:39* Test Item Value Reference Range Interpretation Comme nts POCT GLU (test code = 6037532332) 257 mg/dL 70-110 H Lab Interpretation (test cod e = 57021-0) Abnormal [facility] GLUCOSE (AUTOMATED)2022-03-08 12:38:59* Test Item Value Reference Range Interpretation Comme nts POCT GLU (test code = 8068138655) 142 mg/dL 70-110 H Lab Interpretation (test cod e = 61377-2) Abnormal [facility] GLUCOSE (AUTOMATED)2022-03-08 02:12:34* Test Item Value Reference Range Interpretation Comme nts POCT GLU (test code = 1265238303) 157 mg/dL 70-110 H Lab Interpretation (test cod e = 66796-1) Abnormal [facility] GLUCOSE (AUTOMATED)2022-03-08 00:58:26* Test Item Value Reference Range Interpretation Comme nts POCT GLU (test code = 5049689835) 161 mg/dL 70-110 H Lab Interpretation (test cod e = 07273-8) Abnormal [facility] GLUCOSE (AUTOMATED)2022-03-07 20:58:20* Test Item Value Reference Range Interpretation Comme nts POCT GLU (test code = 5900146287) 254 mg/dL 70-110 H Lab Interpretation (test cod e = 08711-7) Abnormal [facility] GLUCOSE (AUTOMATED)2022-03-07 17:07:27* Test Item Value Reference Range Interpretation Comme nts POCT GLU (test code = 9973695654) 197 mg/dL 70-110 H Lab Interpretation (test cod e = 21613-6) Abnormal [facility] GLUCOSE (AUTOMATED)2022-03-07 12:27:16* Test Item Value Reference Range Interpretation Comme nts POCT GLU (test code = 6438538247) 110 mg/dL 70-110 Lab Interpretation (test cod e = 37968-8) Normal [facility] GLUCOSE (AUTOMATED)2022-03-07 09:12:13* Test Item Value Reference Range Interpretation Comme nts POCT GLU (test code = 3785409810) 80 mg/dL 70-110 Lab Interpretation (test cod e = 77943-6) Normal [facility] GLUCOSE (AUTOMATED)2022-03-07 05:09:33* Test Item Value Reference Range Interpretation Comme nts POCT GLU (test code = 2161164750) 137 mg/dL 70-110 H Lab Interpretation (test cod e = 04374-4) Abnormal [facility] GLUCOSE (AUTOMATED)2022-03-07 02:12:30* Test Item Value Reference Range Interpretation Comme nts POCT GLU (test code = 0956770575) 109 mg/dL 70-110 Lab Interpretation (test cod e = 00440-8) Normal [facility] GLUCOSE (AUTOMATED)2022-03-06 22:22:54* Test Item Value Reference Range Interpretation Comme nts POCT GLU (test code = 7064092654) 222 mg/dL 70-110 H Lab Interpretation (test cod e = 71710-5) Abnormal [facility] GLUCOSE (AUTOMATED)2022-03-06 16:50:43* Test Item Value Reference Range Interpretation Comme nts POCT GLU (test code = 6097440625) 262 mg/dL 70-110 H Lab Interpretation (test cod e = 53463-2) Abnormal [facility] GLUCOSE (AUTOMATED)2022-03-06 14:29:10* Test Item Value Reference Range Interpretation Comme nts POCT GLU (test code = 9378236160) 253 mg/dL 70-110 H Lab Interpretation (test cod e = 62316-1) Abnormal [facility] GLUCOSE (AUTOMATED)2022-03-06 04:48:43* Test Item Value Reference Range Interpretation Comme nts POCT GLU (test code = 3359743509) 286 mg/dL 70-110 H Lab Interpretation (test cod e = 06859-2) Abnormal [facility] GLUCOSE (AUTOMATED)2022-03-06 01:55:27* Test Item Value Reference Range Interpretation Comme nts POCT GLU (test code = 0255877267) 323 mg/dL 70-110 H Lab Interpretation (test cod e = 01967-9) Abnormal [facility] GLUCOSE (AUTOMATED)2022-03-05 20:33:30* Test Item Value Reference Range Interpretation Comme nts POCT GLU (test code = 6909298555) 297 mg/dL 70-110 H Lab Interpretation (test cod e = 28247-3) Abnormal [facility] GLUCOSE (AUTOMATED)2022-03-05 12:39:03* Test Item Value Reference Range Interpretation Comme nts POCT GLU (test code = 2993616754) 206 mg/dL 70-110 H Lab Interpretation (test cod e = 08630-2) Abnormal [facility] GLUCOSE (AUTOMATED)2022-03-05 01:53:16* Test Item Value Reference Range Interpretation Comme nts POCT GLU (test code = 2381207763) 208 mg/dL 70-110 H Lab Interpretation (test cod e = 74815-0) Abnormal [facility] GLUCOSE (AUTOMATED)2022-03-04 22:55:41* Test Item Value Reference Range Interpretation Comme nts POCT GLU (test code = 1695389197) 278 mg/dL 70-110 H Lab Interpretation (test cod e = 51598-9) Abnormal [facility] WITHOUT [id number] 20:43:33* Test Item Value Reference Range Interpretation Comme nts WBC (test code = 6690-2) See_Comment [Automated message] The system which generated this result transmitted reference range: 4.30 - 11.10 10*3/?L. The reference range was not used to interpret this result as normal/abnormal. RBC (test code = 789-8) See_Comment [Automated message] The system which generated this result transmitted reference range: 3.93 - 5.25 10*6/?L. The reference range was not used to interpret this result as normal/abnormal. HGB (test code = 718-7) 11.9 g/dL 11.6-15.0 HCT (test code = 4544-3) 34.4 % 35.7-45.2 L MCH (test code = 785-6) 27.7 pg 25.9-32.8 MCV (test code = 787-2) 80.2 fL 80.6-95.5 L MCHC (test code = 786-4) 34.6 g/dL 31.6-35.1 PLT (test code = 777-3) See_Comment [Automated message] The system which generated this result transmitted reference range: 166 - 358 10*3/?L. The reference range was not used to interpret this result as normal/abnormal. MPV (test code = 72590-6) 9.9 fL 9.5-12.9 RDW-CV (test code = 788-0) 12.8 % 12.0-15.5 RDW-SD (test code = 39204-2) 36.4 fL 39.0-49.9 L NRBC x10^3 (test code = 4363390695) <0.01 See_Comment [Automated messa ge] The system which generated this result transmitted reference range: 10*3/?L. The reference range was not used to interpret this result as normal/abnormal. NRBC/100 WBC (test code = 7164760091) See_Comment [Automated messa ge] The system which generated this result transmitted reference range: 0.0 - 10.0 /100 WBCs. The reference range was not used to interpret this result as normal/abnormal. IPF % (test code = 4466287985) Lab Interpretation (test code = 29012-8) Abnormal [facility] GLUCOSE (AUTOMATED)2022-03-04 19:56:12* Test Item Value Reference Range Interpretation Comme [facility] POCT GLU (test code = 9766267223) 140 mg/dL 70-110 H Lab Interpretation (test cod e = 23012-9) Abnormal [facility] GLUCOSE (AUTOMATED)2022-03-04 15:27:17* Test Item Value Reference Range Interpretation Comme [facility] POCT GLU (test code = 5560866485) 160 mg/dL 70-110 H Lab Interpretation (test cod e = 79029-7) Abnormal [facility] GLUCOSE (AUTOMATED)2022-03-04 13:08:17* Test Item Value Reference Range Interpretation Comme [facility] POCT GLU (test code = 3823204299) 104 mg/dL 70-110 Lab Interpretation (test cod e = 40997-8) Normal [facility] METABOLIC PANEL (NA, K, CL, CO2, GLUCOSE, BUN, CREATININE, CA)2022-03-04 10:18:12* Test Item Value Reference Range Interpretation Comme [facility] NA (test code = 7304145398) 140 mmol/L 135-145 K (test code = 0438212944) 3.5 mmol/L 3.5-5.0 CL (test code = 4837691898) 109 mmol/L 98-108 H CO2 TOTAL (test code = 4823153541) 29 mmol/L 23-31 AGAP (test code = 3965744175) 2-16 BUN (test code = 5970025181) 8 mg/dL 7-23 GLUCOSE (test code = 8883717833) 92 mg/dL 70-110 CREATININE (test code = 1030150007) 0.39 mg/dL 0.50-1.04 L CALCIUM (test code = 7122538991) 7.9 mg/dL 8.6-10.6 L eGFR (test code = 4125513198) mL/min/1.73m2 ANITA (test code = ANITA) Association of Glomerular Filtration Rate (GFR) and Staging of Kidney Disease* + --+ --+ ------+| GFR (mL/min/1.73 m2) ?| With Kidney Damage ?| ?Without Kidney Damage+ --------+ --------+ +| ?>90 ?| ?Stage one ?| ? Normal ?+ ---+ ---+ -------+| ?60-89 ?| ?Stage two ?| ? Decreased GFR ? + --+ --+ ------+| ?30-59 ?| ?Stage three ?| ? Stage three ? + --+ --+ ------+| ?15-29 ?| ?Stage four ? | ? Stage four ?+ ---+ ---+ -------+| ?<15 (or dialysis) ? ?| ?Stage five ? | ? Stage five ?+ ---+ ---+ -------+ *Each stage assumes the associated GFR level has been in effect for at least three months. ?Stages 1 to 5, with or without kidney disease, indicate chronic kidney disease. Notes: Determination of stages one and two (with eGFR >59mL/min/1.73 m2) requires estimation of kidney damage for at least three months as defined by structural or functional abnormalities of the kidney, manifested by either:Pathological abnormalities or Markers of kidney damage (including abnormalities in the composition of the blood or urine or abnormalities in imaging tests). Lab Interpretation (test code = 12092-4) [facility] 09:57:23* Test Item Value Reference Range Interpretation Comme nts MAGNESIUM (test code = 5813034077) 1.9 mg/dL 1.7-2.4 Lab Interpretation (test cod e = 88864-7) Normal [facility] WITH [id number] 09:54:26* Test Item Value Reference Range Interpretation Comme nts WBC (test code = 6690-2) See_Comment [Automated BATTERIES & BANDS] The system which generated this result transmitted reference range: 4.30 - 11.10 10*3/?L. The reference range was not used to interpret this result as normal/abnormal. RBC (test code = 789-8) See_Comment [Automated BATTERIES & BANDS] The system which generated this result transmitted reference range: 3.93 - 5.25 10*6/?L. The reference range was not used to interpret this result as normal/abnormal. HGB (test code = 718-7) 11.4 g/dL 11.6-15.0 L HCT (test code = 4544-3) 33.7 % 35.7-45.2 L MCV (test code = 787-2) 79.9 fL 80.6-95.5 L MCH (test code = 785-6) 27.0 pg 25.9-32.8 MCHC (test code = 786-4) 33.8 g/dL 31.6-35.1 RDW-SD (test code = 68719-2) 36.4 fL 39.0-49.9 L RDW-CV (test code = 788-0) 12.8 % 12.0-15.5 PLT (test code = 777-3) See_Comment [Automated messa ge] The system which generated this result transmitted reference range: 166 - 358 10*3/?L. The reference range was not used to interpret this result as normal/abnormal. MPV (test code = 52553-0) 9.8 fL 9.5-12.9 NRBC/100 WBC (test code = 1346083322) See_Comment [Automated eV[employer] ssage] The system which generated this result transmitted reference range: 0.0 - 10.0 /100 WBCs. The reference range was not used to interpret this result as normal/abnormal. NRBC x10^3 (test code = 3869328581) <0.01 See_Comment [Automated messa ge] The system which generated this result transmitted reference range: 10*3/?L. The reference range was not used to interpret this result as normal/abnormal. GRAN MAT (NEUT) % (test code = 770-8) 37.7 % IMM GRAN % (test code = 6319342672) 0.00 % LYMPH % (test code = 736-9) 50.5 % MONO % (test code = 5905-5) 6.6 % EOS % (test code = 713-8) 5.0 % BASO % (test code = 706-2) 0.2 % GRAN MAT x10^3(ANC) (test code = 9247387655) 1.89 10*3/uL 1.88-7.09 IMM GRAN x10^3 (test code = 5379426800) <0.03 0.00-0.06 LYMPH x10^3 (test code = 731-0) 2.53 10*3/uL 1.32-3.29 MONO x10^3 (test code = 742-7) 0.33 10*3/uL 0.33-0.92 EOS x10^3 (test code = 711-2) 0.25 10*3/uL 0.03-0.39 BASO x10^3 (test code = 704-7) <0.03 0.01-0.07 Lab Interpretation (test code = 00959-1) [facility]normal [facility]2022-[facility]-03 22:58:43* Test Item Value Reference Range Interpretation Comme [facility] POCT GLU (test code = 0648258045) 201 mg/dL 70-110 H Lab Interpretation (test cod e = 48276-2) [facility] 2022-03-03 22:21:16* Test Item Value Reference Range Interpretation Comme [facility] LVOT diameter (test code = 1980758751) 2.05 cm Ao root annulus (test code = 6357714924) 3.0 cm Ao root diam (test code = 8149023483) 3.00 cm Aortic root (test code = 2696603655) 3.0 cm LA size (test code = 4572499217) 3.0 cm LVIDD (test code = 3514726594) 4.30 cm IVS (test code = 2141309380) 0.89 cm Interventricular Septum Diastolic Thickness by 2D (test code = 1523547) 0.89 cm LVPWD (test code = 8635069426) 0.75 cm PW (test code = 5571278243) 0.75 cm 0.6-1.1 EF(Teich) (test code = 9056881298) 27.60 % LVIDS (test code = 2888769985) 3.80 cm FS (test code = 6682382180) 13 % EF - 2D (test code = 83216878) 27.60 % MV Peak E Parag (test code = 8948361941) 72.8 cm/s MV Peak A Parag (test code = 3195947715) 99.0 cm/s E/A ratio (test code = 0628671301) ratio E wave decelartion time (test code = 9250476104) 0.36 s MV Prop V (test code = 1896606878) 34.00 cm/s LAV(MOD-sp4) (test code = 2668571917) 21.50 mL Tapse (test code = 6508738815) 2.9 cm LVOT stroke volume (test code = 7449637802) 58.40 cm3 LVOT peak parag (test code = 6562588149) 84.0 cm/s LVOT mn grad (test code = 1704175648) mmHg AV LVOT peak gradient (test code = 8462138923) mmHg LVOT peak VTI (test code = 2549003564) 17.7 cm LV V1 mean (test code = 0251676203) 58.90 cm/s Ao peak parag (test code = 3268028941) 100.4 cm/s AV area peak parag (test code = 1277423853) 2.8 cm2 Ao max PG (test code = 4769251141) 4.00 mm[Hg] AV peak gradient (test code = 8874391406) mmHg LA Volume Index (BP) (test code = 3143365641) 13.9 mL/m2 LA volume (BP) (test code = 0283557971) 24.8 mL LAV(MOD-sp2) (test code = 5622257774) 29.10 mL Radiology Study observation (narrative) (test code = 43966-3) ANITA (test code = ANITA) ?Left?Ventricle: Left ventricle size is normal. Normal wall thickness. Normal wall motion. Normal diastolic function. Septal motion is normal. Normal systolic function with a visually estimated EF of 60 - 65%. ?Left?Atrium: Saline contrast shows no shunt. Indiana Tran MD [facility] Weight BSA (Calculated - sq m) BP Pulse 5' 6" (1.676 m) 154 lb (69.9 kg) 1.8 sq meters 143/79 80 [facility] (A1C)2022-03-03 22:01:34* Test Item Value Reference Range Interpretation Comme nts HGB A1C (test code = 4548-4) 13.8 % 4.0-5.7 H ANITA (test code = ANITA) Reference RangesNormal: <5.7%Prediabetes: 5.7 - 6.4%Diabetes: > 6.5% Lab Interpretation (test code = 90802-5) Abnormal [facility] Tyler[facility]ST[facility] LIPID PANEL (75609)(TOTAL CHOLESTEROL, TRIGLYCERIDES, HDL)2022-03-03 18:17:43* Test Item Value Reference Range Interpretation Comme nts CHOL (test code = 2514004214) 213 mg/dL 120-200 H HDL (test code = 8024764151) 62 mg/dL >50 HDLC RATIO (test code = 1644928569) See_Comment [Automated BATTERIES & BANDS] The system which generated this result transmitted reference range: <=4.5. The reference range was not used to interpret this result as normal/abnormal. TRIG (test code = 4079977767) 171 mg/dL 30-170 H LDL CHOL (test code = 45269-2) 117 mg/dL See_Comment [Automated BATTERIES & BANDS] The system which generated this result transmitted reference range: <=160. The reference range was not used to interpret this result as normal/abnormal. VLDL (test code = 4270782009) 34 mg/dL 5-60 Lab Interpretation (test code = 98923-0) Abnormal [facility] Tyler[facility]rop[facility] - Code [id number] 17:25:36* Test Item Value Reference Range Interpretation Comments TROPONIN I (test code = 6954980846) 0.013 ng/mL See_Comment [Automated message] The system which generated this result transmitted reference range: <=0.034. The reference range was not used to interpret this result as normal/abnormal. ANITA (test code = ANITA) Reference (Normal) Range (defined by the 99th percentile reference limit): <= 0.034 ng/mL Note: Cardiac troponin begins to rise 3-4 hours after the onset of ischemia. Repeat in 4-6 hours if the sample was drawn within 3-4 hours of the onset of the symptom and found normal. Diagnosis of myocardial injury is made with acute changes in cTn concentrations with at least one serial sample above the 99th percentile upper reference limit (URL), taken together with the patient's clinical presentation. Biotin has been reported to cause a negative bias, interpret results relative to patient's use of biotin. Lab Interpretation (test code = 07378-3) Normal [facility] Tyler[facility]th[facility] Time / INR - Code [id number] 17:14:59* Test Item Value Reference Range Interpretation Comme nts PROTIME PATIENT (test code = 5964-2) See_Comment [Automated [employer]] The system which generated this result transmitted reference range: 10.1 - 12.6 Seconds. The reference range was not used to interpret this result as normal/abnormal. INR (test code = 6301-6) Normal INR <1.1; Warfarin Therapeutic range 2.0 to 3.0 or 2.5 to 3.5, depending upon the indications. Lab Interpretation (test code = 84646-2) Normal [facility] - Code [id number] 17:14:59* Test Item Value Reference Range Interpretation Comme nts APTT Patient (test code = 3173-2) See_Comment [Automated [employer]] The system which generated this result transmitted reference range: 26 - 36 Seconds. The reference range was not used to interpret this result as normal/abnormal. Lab Interpretation (test code = 22908-0) Normal [facility] Metabolic Panel (NA, K, CL, CO2, Glucose, BUN, Creatinine, CA) - Code Dbxvix3298-21-16 17:13:43* Test Item Value Reference Range Interpretation Comme [facility] NA (test code = 3537531736) 134 mmol/L 135-145 L K (test code = 8894627400) 5.0 mmol/L 3.5-5.0 Slight hemolysis CL (test code = 9501921335) 98 mmol/L 98-108 CO2 TOTAL (test code = 0659501757) 29 mmol/L 23-31 AGAP (test code = 0079348570) 2-16 BUN (test code = 2116157076) 11 mg/dL 7-23 Slight hemolysis GLUCOSE (test code = 2059023166) 320 mg/dL 70-110 H CREATININE (test code = 3758708180) 0.48 mg/dL 0.50-1.04 L CALCIUM (test code = 3330476808) 9.0 mg/dL 8.6-10.6 eGFR (test code = 9823368271) mL/min/1.73m2 ANITA (test code = ANITA) Association of Glomerular Filtration Rate (GFR) and Staging of Kidney Disease* + -----+ --------+ +| GFR (mL/min/1.73 m2) ?| With Kidney Damage ?| ?Without Kidney Damage+ +------- +---- --+| ?>90 ?| ?Stage one ?| ? Normal ?+ ------+ ---------+--------- +| ?60-89 ?| ?Stage two ?| ? Decreased GFR ? + -----+ --------+ +| ?30-59 ?| ?Stage three ?| ? Stage three ? + -----+ --------+ +| ?15-29 ?| ?Stage four ? | ? Stage four ?+ ------+ ---------+--------- +| ?<15 (or dialysis) ? ?| ?Stage five ? | ? Stage five ?+ ------+ ---------+--------- + *Each stage assumes the associated GFR level has been in effect for at least three months. ?Stages 1 to 5, with or without kidney disease, indicate chronic kidney disease. Notes: Determination of stages one and two (with eGFR >59mL/min/1.73 m2) requires estimation of kidney damage for at least three months as defined by structural or functional abnormalities of the kidney, manifested by either:Pathological abnormalities or Markers of kidney damage (including abnormalities in the composition of the blood or urine or abnormalities in imaging tests). Lab Interpretation (test code = 48391-6) Abnormal [facility] without Diff - Code [id number] 17:04:15* Test Item Value Reference Range Interpretation Comme nts WBC (test code = 6690-2) See_Comment [Automated message] The system which generated this result transmitted reference range: 4.30 - 11.10 10*3/?L. The reference range was not used to interpret this result as normal/abnormal. RBC (test code = 789-8) See_Comment [Automated message] The system which generated this result transmitted reference range: 3.93 - 5.25 10*6/?L. The reference range was not used to interpret this result as normal/abnormal. HGB (test code = 718-7) 13.8 g/dL 11.6-15.0 HCT (test code = 4544-3) 40.7 % 35.7-45.2 MCH (test code = 785-6) 27.1 pg 25.9-32.8 MCV (test code = 787-2) 79.8 fL 80.6-95.5 L MCHC (test code = 786-4) 33.9 g/dL 31.6-35.1 PLT (test code = 777-3) See_Comment [Automated message] The system which generated this result transmitted reference range: 166 - 358 10*3/?L. The reference range was not used to interpret this result as normal/abnormal. MPV (test code = 64390-5) 10.1 fL 9.5-12.9 RDW-CV (test code = 788-0) 12.5 % 12.0-15.5 RDW-SD (test code = 20173-3) 35.7 fL 39.0-49.9 L NRBC x10^3 (test code = 5011768348) <0.01 See_Comment [Automated messa ge] The system which generated this result transmitted reference range: 10*3/?L. The reference range was not used to interpret this result as normal/abnormal. NRBC/100 WBC (test code = 6117627490) See_Comment [Automated messa ge] The system which generated this result transmitted reference range: 0.0 - 10.0 /100 WBCs. The reference range was not used to interpret this result as normal/abnormal. IPF % (test code = 5408264858) Lab Interpretation (test code = 52447-7) Abnormal [facility] GLU[facility] (AUTOMATED)2022-03-03 16:45:53* Test Item Value Reference Range Interpretation Comme [facility] POCT GLU (test code = 1710150386) 308 mg/dL 70-110 H Lab Interpretation (test cod e = 63922-9) [facility]C)2022-02-18 04:00:44* Test Item Value Reference Range Interpretation Comme [facility] HGB A1C (test code = 4548-4) 13.2 % 4.0-5.7 H ANITA (test code = ANITA) Reference RangesNormal: <5.7%Prediabetes: 5.7 - 6.4%Diabetes: > 6.5% Lab Interpretation (test code = 98628-5) [facility]normal [facility] [id number] 22:39:59* Test Item Value Reference Range Interpretation Comme nts WBC (test code = 6690-2) See_Comment [Automated messa ge] The system which generated this result transmitted reference range: 4.30 - 11.10 10*3/?L. The reference range was not used to interpret this result as normal/abnormal. RBC (test code = 789-8) See_Comment [Automated messa ge] The system which generated this result transmitted reference range: 3.93 - 5.25 10*6/?L. The reference range was not used to interpret this result as normal/abnormal. HGB (test code = 718-7) 13.5 g/dL 11.6-15.0 HCT (test code = 4544-3) 41.5 % 35.7-45.2 MCV (test code = 787-2) 84.2 fL 80.6-95.5 MCH (test code = 785-6) 27.4 pg 25.9-32.8 MCHC (test code = 786-4) 32.5 g/dL 31.6-35.1 RDW-SD (test code = 60927-7) 39.0 fL 39.0-49.9 RDW-CV (test code = 788-0) 12.8 % 12.0-15.5 PLT (test code = 777-3) See_Comment [Automated Lexya ge] The system which generated this result transmitted reference range: 166 - 358 10*3/?L. The reference range was not used to interpret this result as normal/abnormal. MPV (test code = 48710-8) 10.4 fL 9.5-12.9 NRBC/100 WBC (test code = 3445903291) See_Comment [Automated eVigilo ssage] The system which generated this result transmitted reference range: 0.0 - 10.0 /100 WBCs. The reference range was not used to interpret this result as normal/abnormal. NRBC x10^3 (test code = 2535723541) <0.01 See_Comment [Automated Lexya ge] The system which generated this result transmitted reference range: 10*3/?L. The reference range was not used to interpret this result as normal/abnormal. GRAN MAT (NEUT) % (test code = 770-8) 40.0 % IMM GRAN % (test code = 0390275521) 0.20 % LYMPH % (test code = 736-9) 48.9 % MONO % (test code = 5905-5) 6.3 % EOS % (test code = 713-8) 4.2 % BASO % (test code = 706-2) 0.4 % GRAN MAT x10^3(ANC) (test code = 2118599535) 1.98 10*3/uL 1.88-7.09 IMM GRAN x10^3 (test code = 5717038749) <0.03 0.00-0.06 LYMPH x10^3 (test code = 731-0) 2.42 10*3/uL 1.32-3.29 MONO x10^3 (test code = 742-7) 0.31 10*3/uL 0.33-0.92 L EOS x10^3 (test code = 711-2) 0.21 10*3/uL 0.03-0.39 BASO x10^3 (test code = 704-7) <0.03 0.01-0.07 REACT LYMPHS (test code = 8842871995) Rare Lab Interpretation (test code = 36371-6) [facility]normal [facility]/AUTO [id number] 00:00:00* Test Item Value Reference Range Interpretation Comme nts WBC (test code = 1001) 4.6 K/UL RBC (test code = 1002) 4.42 M/UL HEMOGLOBIN (test code = 1003) 8.9 G/DL HEMATOCRIT (test code = 1004) 29.9 % MCV (test code = 1005) 67.6 fL MCH (test code = 1006) 20.1 PG MCHC (test code = 1007) 29.8 G/DL RDW (test code = 1038) 14.6 % NEUTROPHILS (test code = 1008) 37.8 % LYMPHOCYTES (test code = 1010) 48.9 % MONOCYTES (test code = 1011) 5.9 % EOSINOPHILS (test code = 1012) 7.0 % BASOPHILS (test code = 1013) 0.4 % PLATELET COUNT (test code = 1015) 280 K/UL Andrés ChristianHEMOGLOBIN [id number] 00:00:00* Test Item Value Reference Range Interpretation Comme nts HEMOGLOBIN A1c (test code = 85107) 11.8 % Andrés ChristianVITAMIN D, 25 [id number] 00:00:00* Test Item Value Reference Range Interpretation Comme nts VITAMIN D, 25 OH (test code = 4958) 10 NG/ML Andrés ChristianVITAMIN B 12 AND FOLIC [id number] 00:00:00* Test Item Value Reference Range Interpretation Comme nts VITAMIN B-12 (test code = 2840) 407 PG/ML FOLIC ACID (test code = 2695) 14.1 UG/L Andrés Thorne GinoCOMPREHENSIVE METABOLIC [id number] 00:00:00* Test Item Value Reference Range Interpretation Comme nts GLUCOSE (test code = 2217) 333 MG/DL BUN (test code = 2208) 10 MG/DL CREATININE (test code = 2214) 0.61 MG/DL eGFR AMER. (test cod e = 02166) 124 ML/MIN/1.73 eGFR NON- AMER. (test code = 39390) 107 ML/MIN/1.73 CALC BUN/CREAT (test code = 2235) 16 RATIO SODIUM (test code = 2231) 136 MEQ/L POTASSIUM (test code = 2228) 3.9 MEQ/L CHLORIDE (test code = 2215) 98 MEQ/L CARBON DIOXIDE (test code = 2206) 28 MEQ/L CALCIUM (test code = 2209) 9.1 MG/DL PROTEIN, TOTAL (test code = 2229) 7.2 G/DL ALBUMIN (test code = 2201) 4.0 G/DL CALC GLOBULIN (test code = 2240) 3.2 G/DL CALC A/G RATIO (test code = 2234) 1.3 RATIO BILIRUBIN, TOTAL (test code = 2207) 0.3 MG/DL ALKALINE PHOSPHATASE (test code = 2204) 64 U/L AST (test code = 2218) 14 U/L ALT (test code = 2219) 14 U/L Andrés Fadumo Gino Notes Date/Time Note Provider Source 2024-07-17 17:27:54 Patient transferred to private vehicle accompanied by son via wheelchair, required max assistance x 2 people and tolerated transfer well, placed with seatbelt and son confirms in route to [facility] at this time. Elissa Robertson LVN [facility] 2024-07-17 17:21:59 VSS taken, patient reports falling last night in shower and hitting head on floor, right side of head with small raised area with no purpura or laceration noted. Bilateral upper extremities assesssed, right sided minimal weakness to RUE, Alert, 0X2 (name/place). Patient informed she is to be transferred to ER, denied transport via ambulance. Patient phoned son and is office at this time and Dr. Holcomb with family at this time. Patient continues with complaint of ESPINOZA, rates 02/08. [facility] 2024-07-17 17:16:35 VSS taken, patient reports falling last night in shower and hitting head on floor, right side of head with small raised area with no purpura or laceration noted. Bilateral upper extremities assesssed, right sided minimal weakness to RUE, Alert, 0X2 (name/place). 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 Needs referral to [facility] Rina Fisher LVN [facility] 2024-05-24 08:39:00 [id number] [place], [place] PATIENT NAME: TSERING BRAUN ADMIT DATE: 03/13/24 ACCOUNT NO: [id number] ROOM NO: [id number] AGE: 54 REPORT TYPE: 360 - QUERY RESPONSE DOCUMENT SEX: F ADMITTING PHYSICIAN:Garrett Rhodes DO ATTENDING PHYSICIAN:Garrett Rhodes DO Provider Query QUERY TEXT: Procedure Specificity General 360MD Query related questions should be directed to:[facility] Coding Query Helpline Please provide clarification for the procedure performed: Complex incision and drainage, right foot abscess. Skin Subcutaneous tissue Muscle other more depth Unable to determine The patient's Clinical Indicators include: Complex incision and drainage, right foot abscess. OPERATIVE REPORT 03/21/2024 Culture swab to micro. OPERATIVE REPORT 03/21/2024 tibial nerve block and a saphenous nerve block to the right ankle OPERATIVE REPORT 03/21/2024 incision was reapproximated with 2-0 Prolene. OPERATIVE REPORT 03/21/2024 Options provided: -- Respond - Create new note now -- Dismiss - Not applicable / Not valid -- Dismiss - Clinically unable to determine / Unknown -- Assign to another provider QUERY RESPONSE: Complex incision and drainage right medial heel involving subcutaneous tissue, abductor hallucis muscle, extending to but not including calcaneus Query created by: Remy Guerrero on 04/12/2024 5:50 AM at 0839 PATIENT NAME: TSERING BRAUN [facility] Andrés Christian [facility]2024-07-10 18:34:00 [facility] Critical Care Progress Note REPORT#:[id number] REPORT STATUS: Signed REPORT INITIALIZATION DATE:04/10/24 TIME: 1833 PATIENT: TSERING BRAUN UNIT #: [id number] ROOM/BED: [place] [address] : 71 AGE: 54 SEX: F ATTEND: Garrett Rhodes DO ADM AUTHOR: Jordan Lee MD REPT SERVICE DT/TIME: 04/10/241833 * ALL edits or amendments must be made on the electronic/computer document * Subjective Chief complaint: right foot pain HPI: Seen and examined, NAD, NAEO Review of Systems Free Text ROS Notes Free Text ROS Notes: 14 point ROS completed and negative unless noted otherwise Objective General VS/I O Last Documented: Result Date Time Pulse Ox 99 04/10 1703 B/P 150/81 04/10 1703 B/P Mean 104.3 04/10 1703 Temp 97.7 04/10 1703 Pulse 94 / 1703 Resp 16 04/10 1703 O2 Delivery Room air 04/09 2313 24 hour I O ending at 0700: 04/10 0700 04/09 1900 Intake Total 700 Output Total Balance 700 Intake, Oral 700 Number 1 1 Bowel Movements Number Voids 3 PATIENT WEIGHT: Weight (lb): 149 Weight (oz): 4.05 Weight (kg): 67.585 Medications: Active Meds + DC'd Last 24 Hrs Cefazolin Sodium (Cefazolin Sodium) 2 GM Q8H IV Sodium Chloride (NORMAL SALINE 10ML VIAL) 10 ML Docusate Sodium (COLACE 100MG CAPSULE) 100 MG BID PO Bisacodyl (DULCOLAX) 10 MG DAILY PRN PO Bisacodyl (DULCOLAX 10MG SUPPOSITORY) 10 MG DAILY PRN RECTAL Magnesium Hydroxide (MILK OF MAGNESIA) 30 ML Q12H PRN PRN PO Sodium Biphosphate/Sodium Phosphate (FLEET ENEMA) 1 BOT DAILY PRN PRN RECTAL (CKD) Tramadol HCl (ULTRAM 50MG TABLET) 50 MG Q6H PRN PRN PO Insulin Glargine (Lantus/Semglee) 15 UNIT Q12HR SUBQ Acetaminophen (TYLENOL 325MG TABLET) 650 MG Q4H PRN PRN PO Insulin Human Lispro (HumaLOG) 5 UNIT TID MEALS SUBQ Gabapentin (NEURONTIN 100MG CAPSULE) 100 MG TID PO Insulin Human Lispro (HumaLOG) AGGRESSIVE SLIDING SCALE (steroids, infection, resistant) AC HS 0200 SUBQ Dextrose (GLUCOSE) 16 GM ASDIR PRN PO Dextrose/Water (DEXTROSE 50% 50ML SYRINGE) 12.5 GM ASDIR PRN IV Ondansetron HCl (ZOFRAN 4 MG/2 ML) 4 MG Q4H PRN PRN IV Sodium Chloride (NORMAL SALINE 250ML IV BAG) 250 ML ASDIR PRN IV Physical Exam Head/eyes: atraumatic, clear cornea, PERRLA ENT: dry mucosal membrane, poor dentition Neck: full range of motion, non-tender, no JVD, no masses or swelling Cardiovascular: normal capillary refill, normal heart sounds, regular rate and rhythm, normal S1/S2, no ectopy Respiratory: aerating well, clear to auscultation, symmetric expansion, no distress Abdomen: soft, non-tender Genitourinary: no bladder distention, no flank pain, no urinary catheter Extremities: edema (to RLE), moves all, normal capillary refill, normal range of motion, no calf tenderness, no clubbing, no cyanosis Musculoskeletal normal inspection, painless range of motion Neuro/GATE SUPERVISOR: alert, oriented X 3, normal speech, reflexes equal bilat, no motor deficits, no sensory deficits Skin: abscess (to right foot), dry, intact, normal color, normal temperature, no rash Ulcer: Type/cause: Dressing over right foot Wound/incision: Location: right foot blister Site condition: no drainage Psychiatry: normal affect, normal judgment/insight, normal mood, not homicidal, not suicidal, no hallucinations Results Findings/data: Laboratory Tests 04/10 04/10 04/10 04/10 04/10 1622 1124 0510 0228 0208 Chemistry Sodium (133 - 145 MMOL/L) 142 Potassium (3.6 - 5.2 MMOL/L) 3.7 Chloride (100 - 108 MMOL/L) 105 Carbon Dioxide (22 - 32 MMOL/L) 33 H BUN (6 - 20 MG/DL) 16 Creatinine (0.60 - 1.00 MG/DL) 0.53 L Estimated GFR (MDRD) (51 - 120) 111 Glucose (65 - 99 MG/DL) 113 H POC Glucose (65 - 99 MG/DL) 79 238 H 114 H 114 H Calcium (8.7 - 10.5 MG/DL) 8.9 Total Bilirubin (0.0 - 1.0 MG/DL) 0.3 AST (15 - 37 Units/L) 20 ALT (30 - 65 Units/L) 8 L Alkaline Phosphatase (50 - 136 75 Units/L) Total Protein (6.4 - 8.2 G/DL) 6.8 Albumin (3.4 - 5.0 G/DL) 2.3 L Globulin (1.5 - 3.8 G/DL) 4.5 H Albumin/Globulin Ratio (1.1 - 2.2) 0.5 L 04/09 2036 Chemistry POC Glucose (65 - 99 MG/DL) 81 Laboratory Tests 04/10 0208 Hematology WBC (4.80 - 10.80 x10 3/uL) 3.93 L RBC (4.2 - 5.4 x10 6/uL) 3.40 L Hgb (12.0 - 16.0 G/DL) 9.5 L Hct (37 - 47 %) 30.7 L MCV (81 - 99 FL) 90.3 MCH (27 - 31 PG) 27.9 MCHC (33 - 37 G/DL) 30.9 L RDW Coeff of Rupert (11.5 - 14.5 %) 13.0 Plt Count (150 - 450 x10 3/uL) 235 MPV (7.4 - 10.4 FL) 9.0 Neut % (Auto) (42 - 86 %) 41.2 L Lymph % (Auto) (24 - 44 %) 42.7 [place] % (Auto) (0.0 - 4.0 %) 10.2 H Eos % (Auto) (0.0 - 2.7 %) 5.6 H Baso % (Auto) (0.0 - 0.5 %) 0.3 Eos # (Auto) (0.0 - 0.5 x10 3/uL) 0.22 Baso # (Auto) (0.0 - 0.2 x10 3/uL) 0.01 Abs Immat Gran (auto) (0.00 - 0.03 x10 3/uL) 0.00 Absolute Neuts (auto) (1.8 - 7.7 x10 3/uL) 1.62 L Absolute Lymphs (auto) (1.0 - 4.8 x10 3/uL) 1.68 Absolute Monos (auto) (0.0 - 0.8 x10 3/uL) 0.40 Absolute Nucleated RBC (0.0 - 0.2 X10 3/uL) 0.0 Immature Gran % (0.0 - 2.0 %) 0.0 Nucleated RBC % (0.0 - 0.0 %) 0.0 Laboratory Tests 04/10/24 0208: [Embedded Image Not Available] Diagnosis, Assessment Plan Free text A P: A/p Acute renal failure Diabetic ketoacidosis Severe sepsis Right foot abscess Normocytic anemia Hypokalemia Plan Patient's mentation appears to be at baseline, no acute neuroconcerns She is saturating well on room air Hemodynamically stable, will continue to monitor closely Monitor renal function closely Strict I's and O's Avoid nephrotoxic medications Glucose control with insulin Continue with antibiotics as per ID; Recommend to continue on Ancef 6 g continuous infusion via PICC with stop date 04/26/[address] ID is following Tolerating a diet DVT prophylaxis GI prophylaxis CODE STATUS to full code CM on board for discharge planning Medical decision making: High complexity Rest of the management per primary Consultants: critical/draw bench operator helper at 1835 RPT #:[id number] END OF [id number] 09:27:00 [facility] Infectious Dis. Progress Note REPORT#:[id number] REPORT STATUS: Signed REPORT INITIALIZATION DATE:04/10/24 TIME: 926 PATIENT: TSERING BRAUN UNIT #: [id number] ROOM/BED: [place] [address] : 71 AGE: 54 SEX: F ATTEND: Garrett Rhodes DO ADM AUTHOR: Maral Patino APRN REPT SERVICE DT/TIME: 04/10/24926 * ALL edits or amendments must be made on the electronic/computer document * Subjective HPI: Reason for consultation foot abscess and cellulitis. History of present illness Patient is 54-year-old female present to the hospital complains of pain redness swelling of her right foot with evidence of possible abscess. She did not recall how it started. Patient has foot neuropathy. Temperature was 104. Patient is on currently BKA admitted to the ICU with insulin drip. CT of the right lower extremity revealed 2.3 x 0.8 4.8 cm abscess. Patient is currently on vancomycin and Zosyn. Podiatry consult is currently pending I believe. Review of systems; : patient does not report any headaches or visual disturbances. Rest of the 10 systems are normal or as above. Reviewed all the labs CBC CMP all imaging studies and it systems analyst consultant notes and primary care physician notes. Objective General VS/I O: Vital Signs Date Temp Pulse Resp B/P B/P Mean Pulse Ox FiO2 /-04/10 36.8-36.9 82-100 15-18 106-161/68-88 80.9-112.4 98-100 Last Documented: Result Date Time Pulse Ox 99 / 0805 B/P 145/79 / 0805 B/P Mean 101.4 / 0805 Temp 36.8 / 0805 Pulse 82 / 0805 Resp 16 04/10 0805 O2 Delivery Room air 04/09 2313 Vital Signs: Date Time Temp Pulse Resp B/P B/P Pulse O2 O2 Flow FiO2 Mean Ox Delivery Rate / 0805 36.8 82 16 145/79 101.4 99 / 0358 36.8 88 16 161/88 112.4 98 04/09 2313 36.9 91 15 119/75 89.4 98 Room air 04/09 1936 36.8 100 16 106/68 80.9 98 / 1126 36.8 87 18 121/73 89.0 100 24 hour I O ending at 0700: 04/10 0700 04/09 1900 Intake Total 700 Output Total Balance 700 Intake, Oral 700 Number 1 1 Bowel Movements Number Voids 3 PATIENT WEIGHT: Weight (lb): 149 Weight (oz): 4.05 Weight (kg): 67.585 Medications: Active Meds + DC'd Last 24 Hrs Cefazolin Sodium (Cefazolin Sodium) 2 GM Q8H IV Sodium Chloride (NORMAL SALINE 10ML VIAL) 10 ML Docusate Sodium (COLACE 100MG CAPSULE) 100 MG BID PO Bisacodyl (DULCOLAX) 10 MG DAILY PRN PO Bisacodyl (DULCOLAX 10MG SUPPOSITORY) 10 MG DAILY PRN RECTAL Magnesium Hydroxide (MILK OF MAGNESIA) 30 ML Q12H PRN PRN PO Sodium Biphosphate/Sodium Phosphate (FLEET ENEMA) 1 BOT DAILY PRN PRN RECTAL (CKD) Tramadol HCl (ULTRAM 50MG TABLET) 50 MG Q6H PRN PRN PO Insulin Glargine (Lantus/Semglee) 15 UNIT Q12HR SUBQ Acetaminophen (TYLENOL 325MG TABLET) 650 MG Q4H PRN PRN PO Insulin Human Lispro (HumaLOG) 5 UNIT TID MEALS SUBQ Gabapentin (NEURONTIN 100MG CAPSULE) 100 MG TID PO Insulin Human Lispro (HumaLOG) AGGRESSIVE SLIDING SCALE (steroids, infection, resistant) AC HS 0200 SUBQ Dextrose (GLUCOSE) 16 GM ASDIR PRN PO Dextrose/Water (DEXTROSE 50% 50ML SYRINGE) 12.5 GM ASDIR PRN IV Ondansetron HCl (ZOFRAN 4 MG/2 ML) 4 MG Q4H PRN PRN IV Sodium Chloride (NORMAL SALINE 250ML IV BAG) 250 ML ASDIR PRN IV Physical Exam General appearance: alert, awake, oriented, no acute distress Wound/incision: Location: R foot Site condition: dressing clean dry, dressing intact Cardiovascular: normal heart sounds Respiratory: aerating well, symmetric expansion, no distress Abdomen: non-tender, soft Genitourinary: no urinary catheter Extremities: moves all Neuro/GATE SUPERVISOR: alert, oriented X 3 Skin: no rash Ulcer: Type/cause: Dressing over right foot Psychiatry: normal affect, normal judgment/insight, normal mood Results Findings/Data: Laboratory Tests 04/10 04/10 04/10 04/09 04/09 0510 0228 0208 2036 1514 Chemistry Sodium (133 - 145 MMOL/L) 142 Potassium (3.6 - 5.2 MMOL/L) 3.7 Chloride (100 - 108 MMOL/L) 105 Carbon Dioxide (22 - 32 MMOL/L) 33 H BUN (6 - 20 MG/DL) 16 Creatinine (0.60 - 1.00 MG/DL) 0.53 L Estimated GFR (MDRD) (51 - 120) 111 Glucose (65 - 99 MG/DL) 113 H POC Glucose (65 - 99 MG/DL) 114 H 114 H 81 168 H Calcium (8.7 - 10.5 MG/DL) 8.9 Total Bilirubin (0.0 - 1.0 MG/DL) 0.3 AST (15 - 37 Units/L) 20 ALT (30 - 65 Units/L) 8 L Alkaline Phosphatase (50 - 136 75 Units/L) Total Protein (6.4 - 8.2 G/DL) 6.8 Albumin (3.4 - 5.0 G/DL) 2.3 L Globulin (1.5 - 3.8 G/DL) 4.5 H Albumin/Globulin Ratio (1.1 - 2.2) 0.5 L 04/09 1113 Chemistry POC Glucose (65 - 99 MG/DL) 138 H Laboratory Tests 04/10 0208 Hematology WBC (4.80 - 10.80 x10 3/uL) 3.93 L RBC (4.2 - 5.4 x10 6/uL) 3.40 L Hgb (12.0 - 16.0 G/DL) 9.5 L Hct (37 - 47 %) 30.7 L MCV (81 - 99 FL) 90.3 MCH (27 - 31 PG) 27.9 MCHC (33 - 37 G/DL) 30.9 L RDW Coeff of Rupert (11.5 - 14.5 %) 13.0 Plt Count (150 - 450 x10 3/uL) 235 MPV (7.4 - 10.4 FL) 9.0 Neut % (Auto) (42 - 86 %) 41.2 L Lymph % (Auto) (24 - 44 %) 42.7 [place] % (Auto) (0.0 - 4.0 %) 10.2 H Eos % (Auto) (0.0 - 2.7 %) 5.6 H Baso % (Auto) (0.0 - 0.5 %) 0.3 Eos # (Auto) (0.0 - 0.5 x10 3/uL) 0.22 Baso # (Auto) (0.0 - 0.2 x10 3/uL) 0.01 Abs Immat Gran (auto) (0.00 - 0.03 x10 3/uL) 0.00 Absolute Neuts (auto) (1.8 - 7.7 x10 3/uL) 1.62 L Absolute Lymphs (auto) (1.0 - 4.8 x10 3/uL) 1.68 Absolute Monos (auto) (0.0 - 0.8 x10 3/uL) 0.40 Absolute Nucleated RBC (0.0 - 0.2 X10 3/uL) 0.0 Immature Gran % (0.0 - 2.0 %) 0.0 Nucleated RBC % (0.0 - 0.0 %) 0.0 Diagnosis, Assessment Plan Free Text A P: Assessment Patient is 54-year-old female present to the hospital complains of pain redness swelling of her right foot with evidence of possible abscess. She did not recall how it started. Patient has foot neuropathy. Temperature was 104. Patient is on currently BKA admitted to the ICU with insulin drip. CT of the right lower extremity revealed 2.3 x 0.8 4.8 cm abscess. Patient is currently on vancomycin and Zosyn. Podiatry consult is currently pending I believe. Plan At this time continue with IV vancomycin and Zosyn. Podiatry consultation for possible abscess drainage. Will follow and make further recommendations based on culture results. Thank you for the consultation. 03/14/24 transferred to [facility] floor 03/13 febrile Tmax 103.1; will continue to follow temperature curve with leukocytosis of 16k; will follow on room air; no acute distress noted reports she believes blister ruptured; dressing to R foot c,d,i - wound care notified reports pain to R foot controlled at this time blood cultures 03/12 negative so far; will follow urine cultures 03/13 Staph aureus will change antibiotic to IV Cefazolin monitor for antibiotic related adverse effects pending transfer to [facility] for podiatry evaluation will continue to follow clinically Recommendations per Dr Burks 03/17 -pending I D of abscess on 03/19 blood cultures 03/12 NGTD urine cultures 03/13 Staph aureus Cont. on IV Cefazolin monitor for antibiotic related adverse effects pending podiatry evaluation will continue to follow clinically Reviewed with Dr Burks 03/18/24 Patient remains afebrile, WBC 11 K Patient reports 1 loose bowel movement this morning, will follow blood cultures 03/12 NGTD urine cultures 03/13 Staph aureus Cont. on IV Cefazolin monitor for antibiotic related adverse effects Pending I D of abscess tomorrow; please send cultures Reviewed with Dr Burks 03/19/24 Patient remains afebrile, WBC 11 K Patient denies diarrhea blood cultures 03/12 no growth final urine cultures 03/13 Staph aureus Cont. on IV Cefazolin monitor for antibiotic related adverse effects Pending I D of abscess today please send cultures Reviewed with Dr Burks 03/20/24 Tmax 100.6. WBC 9K Will have nursing staff remove oldest IV Pending right foot I D scheduled for tomorrow Patient is currently on Ancef Reviewed with Dr. Burks 03/21/24 No further fevers, WBC 10K Pending right foot I D today Patient is currently on Ancef Reviewed with Dr. Burks 03/24 Patient status post 03/21/2024 complex I D right foot abscess, * cultures growing staph aureus Patient is currently on Ancef Recommend Ancef 6 g load continuous infusion via PICC with stop date 04/26/2024. Case management orders placed Recommendations from Dr. Burks 03/26/24 Patient has been afebrile, WBC 8K Patient is currently on Ancef Recommend Ancef 6 g load continuous infusion via PICC with stop date 04/26/2024. PICC line in place Pending discharge arrangements Reviewed with Dr. Burks 03/31 Cont. on Ancef Recommend Ancef 6 g load continuous infusion via PICC with stop date 04/26/2024 Pending discharge arrangements Reviewed with Dr. Burks 04/01/24 Patient remains afebrile Patient up in bedside chair. Patient denies any new complaints or concerns at today's visit Patient continues on Ancef Recommend Ancef 6 g continuous infusion via PICC with stop date 04/26/2024 Pending discharge arrangements Reviewed with Dr. Burks 04/02/24 Patient remains afebrile, WBC 5K Patient is currently on Ancef Recommend Ancef 6 g continuous infusion via PICC with stop date 04/26/2024 Pending discharge arrangements; possibly [place] Reviewed with Dr. Burks 04/04/24 Patient remains afebrile Family at bedside Patient is currently on Ancef; tolerating Recommend Ancef 6 g continuous infusion via PICC with stop date 04/26/2024 Pending discharge arrangements Reviewed with Dr. Burks 04/07 Patient remains afebrile, tolerating abx Recommend to continue on Ancef 6 g continuous infusion via PICC with stop date Pending discharge arrangements Reviewed with Dr. Burks 04/08/24 remains afebrile on room air; no acute distress noted richard wrap in place to R foot c,d,i patient with no new complaints at this time continue IV Cefazolin; stop date 04/26/24 monitor for antibiotic related adverse effects continue wound care; will follow will continue to follow clinically pending discharge arrangements; SNF Recommendations per Dr Burks 04/09/24 remains afebrile on room air; no acute distress noted patient up ambulating with physical therapy denies pain to R foot at time of examination continue IV Cefazolin monitor for antibiotic related adverse effects continue wound care; will follow will continue to follow clinically pending discharge arrangements Recommendations per Dr Burks 04/10/24 remains afebrile on room air; no acute distress noted patient up in chair; with no complaints at this time continue IV Cefazolin monitor for antibiotic related adverse effects continue wound care; will follow will continue to follow clinically pending discharge arrangements; H/H Recommendations per Dr Burks OPAT IV Cefazolin 6 g slow continous infusion over 24 hrs; stop date 04/26/24 Weekly CBC, CMP, ESR, CRP Remove PICC line 04/27/24 Alternative; Keflex 1 g PO TID; stop date 04/26/24 Consultants: critical/draw bench operator helper at 1647 at 0116 [facility] #:[id number] END OF [id number] 18:45:00 [facility] ([facility]) Critical Care Progress Note REPORT#:[id number] REPORT STATUS: Signed REPORT INITIALIZATION DATE:04/09/24 TIME: 1844 PATIENT: TSERING BRAUN UNIT #: [id number] ROOM/BED: [place] [address] : 71 AGE: 54 SEX: F ATTEND: Garrett Rhodes DO ADM AUTHOR: Jordan Lee MD REPT SERVICE DT/TIME: 04/09/241844 * ALL edits or amendments must be made on the electronic/computer document * Subjective Chief complaint: right foot pain HPI: Seen and examined, DEMETRA DOWNEY Review of Systems All systems rev neg: except as marked Free Text ROS Notes Free Text ROS Notes: 14 point ROS completed and negative unless noted otherwise Objective General VS/I O Last Documented: Result Date Time Pulse Ox 100 04/09 1126 B/P 121/73 04/09 1126 B/P Mean 89.0 04/09 1126 Temp 98.2 04/09 1126 Pulse 87 04/09 1126 Resp 18 04/09 1126 O2 Delivery Room air 04/08 1110 24 hour I O ending at 0700: 04/09 0700 04/08 1900 Intake Total Output Total Balance Number 1 Bowel Movements PATIENT WEIGHT: Weight (lb): 149 Weight (oz): 4.05 Weight (kg): 67.585 Medications: Active Meds + DC'd Last 24 Hrs Potassium Chloride (K-DUR) 40 MEQ ONCE ONE PO (DC) Cefazolin Sodium (Cefazolin Sodium) 2 GM Q8H IV Sodium Chloride (NORMAL SALINE 10ML VIAL) 10 ML Docusate Sodium (COLACE 100MG CAPSULE) 100 MG BID PO Bisacodyl (DULCOLAX) 10 MG DAILY PRN PO Bisacodyl (DULCOLAX 10MG SUPPOSITORY) 10 MG DAILY PRN RECTAL Magnesium Hydroxide (MILK OF MAGNESIA) 30 ML Q12H PRN PRN PO Sodium Biphosphate/Sodium Phosphate (FLEET ENEMA) 1 BOT DAILY PRN PRN RECTAL (CKD) Tramadol HCl (ULTRAM 50MG TABLET) 50 MG Q6H PRN PRN PO Insulin Glargine (Lantus/Semglee) 15 UNIT Q12HR SUBQ Acetaminophen (TYLENOL 325MG TABLET) 650 MG Q4H PRN PRN PO Insulin Human Lispro (HumaLOG) 5 UNIT TID MEALS SUBQ Gabapentin (NEURONTIN 100MG CAPSULE) 100 MG TID PO Insulin Human Lispro (HumaLOG) AGGRESSIVE SLIDING SCALE (steroids, infection, resistant) AC HS 0200 SUBQ Dextrose (GLUCOSE) 16 GM ASDIR PRN PO Dextrose/Water (DEXTROSE 50% 50ML SYRINGE) 12.5 GM ASDIR PRN IV Ondansetron HCl (ZOFRAN 4 MG/2 ML) 4 MG Q4H PRN PRN IV Sodium Chloride (NORMAL SALINE 250ML IV BAG) 250 ML ASDIR PRN IV Physical Exam Head/eyes: atraumatic, clear cornea, PERRLA ENT: dry mucosal membrane, poor dentition Neck: full range of motion, non-tender, no JVD, no masses or swelling Cardiovascular: normal capillary refill, normal heart sounds, regular rate and rhythm, normal S1/S2, no ectopy Respiratory: aerating well, clear to auscultation, symmetric expansion, no distress Abdomen: soft, non-tender Genitourinary: no bladder distention, no flank pain, no urinary catheter Extremities: edema (to RLE), moves all, normal capillary refill, normal range of motion, no calf tenderness, no clubbing, no cyanosis Musculoskeletal normal inspection, painless range of motion Neuro/GATE SUPERVISOR: alert, oriented X 3, normal speech, reflexes equal bilat, no motor deficits, no sensory deficits Skin: abscess (to right foot), dry, intact, normal color, normal temperature, no rash Ulcer: Type/cause: Dressing over right foot Wound/incision: Location: right foot blister Site condition: no drainage Psychiatry: normal affect, normal judgment/insight, normal mood, not homicidal, not suicidal, no hallucinations Results Findings/data: Laboratory Tests 04/09 04/09 04/09 04/09 04/09 1514 1113 0531 0146 0145 Chemistry Sodium (133 - 145 MMOL/L) 139 Potassium (3.6 - 5.2 MMOL/L) 3.5 L Chloride (100 - 108 MMOL/L) 103 Carbon Dioxide (22 - 32 MMOL/L) 32 BUN (6 - 20 MG/DL) 19 Creatinine (0.60 - 1.00 MG/DL) 0.57 L Estimated GFR (MDRD) (51 - 120) 109 Glucose (65 - 99 MG/DL) 198 H POC Glucose (65 - 99 MG/DL) 168 H 138 H 143 H 188 H Calcium (8.7 - 10.5 MG/DL) 8.8 Total Bilirubin (0.0 - 1.0 MG/DL) 0.2 AST (15 - 37 Units/L) 23 ALT (30 - 65 Units/L) 13 L Alkaline Phosphatase (50 - 136 Units/L) 91 Total Protein (6.4 - 8.2 G/DL) 6.8 Albumin (3.4 - 5.0 G/DL) 2.2 L Globulin (1.5 - 3.8 G/DL) 4.6 H Albumin/Globulin Ratio (1.1 - 2.2) 0.5 L 04/08 2015 Chemistry POC Glucose (65 - 99 MG/DL) 98 Laboratory Tests 04/09 0145 Hematology WBC (4.80 - 10.80 x10 3/uL) 3.83 L RBC (4.2 - 5.4 x10 6/uL) 3.31 L Hgb (12.0 - 16.0 G/DL) 9.3 L Hct (37 - 47 %) 29.5 L MCV (81 - 99 FL) 89.1 MCH (27 - 31 PG) 28.1 MCHC (33 - 37 G/DL) 31.5 L RDW Coeff of Rupert (11.5 - 14.5 %) 13.0 Plt Count (150 - 450 x10 3/uL) 246 MPV (7.4 - 10.4 FL) 9.0 Neut % (Auto) (42 - 86 %) 42.1 Lymph % (Auto) (24 - 44 %) 41.3 [place] % (Auto) (0.0 - 4.0 %) 9.7 H Eos % (Auto) (0.0 - 2.7 %) 6.3 H Baso % (Auto) (0.0 - 0.5 %) 0.3 Eos # (Auto) (0.0 - 0.5 x10 3/uL) 0.24 Baso # (Auto) (0.0 - 0.2 x10 3/uL) 0.01 Abs Immat Gran (auto) (0.00 - 0.03 x10 3/uL) 0.01 Absolute Neuts (auto) (1.8 - 7.7 x10 3/uL) 1.62 L Absolute Lymphs (auto) (1.0 - 4.8 x10 3/uL) 1.58 Absolute Monos (auto) (0.0 - 0.8 x10 3/uL) 0.37 Absolute Nucleated RBC (0.0 - 0.2 X10 3/uL) 0.0 Immature Gran % (0.0 - 2.0 %) 0.3 Nucleated RBC % (0.0 - 0.0 %) 0.0 Laboratory Tests 04/09/24 0145: [Embedded Image Not Available] Diagnosis, Assessment Plan Free text A P: A/p Acute renal failure Diabetic ketoacidosis Severe sepsis Right foot abscess Normocytic anemia Hypokalemia Plan Patient's mentation appears to be at baseline, no acute neuroconcerns She is saturating well on room air Hemodynamically stable, will continue to monitor closely Monitor renal function closely Strict I's and O's Avoid nephrotoxic medications Glucose control with insulin Continue with antibiotics as per ID; Recommend to continue on Ancef 6 g continuous infusion via PICC with stop date 04/26/[address] ID is following Tolerating a diet DVT prophylaxis GI prophylaxis CODE STATUS to full code CM on board for discharge planning Medical decision making: High complexity Rest of the management per primary Consultants: critical/draw bench operator helper at 1847 RPT #:[id number] END OF [id number] 13:45:00 [facility] ([facility]) Hospitalist Discharge Summary REPORT#:[id number] REPORT STATUS: Signed REPORT INITIALIZATION DATE:04/09/24 TIME: 1344 PATIENT: TSERING BRAUN UNIT #: [id number] ROOM/BED: [address] : 71 AGE: 54 SEX: F ATTEND: Garrett Rhodes DO ADM AUTHOR: Garrett Rhodes DO REPT SERVICE DT/TIME: 04/09/24 1345 * ALL edits or amendments must be made on the electronic/computer document * See Addendum General Information Date of admission: Observation Start Date: Date of admission: 03/13/24 Discharge date: 04/09/24 Discharge diagnosis: DKA DM2 poorly controlled with hyperglycemia Diabetic foot wound/osteomyelitis Hospital course: per below Consultants: critical/draw bench operator helper Free Text DxA P Notes Free text DxA P notes: Assessment and plan Right Foot Cellulitis and Abductor Longus Abscess -Rt foot XR Mild soft tissue swelling -CT RLE 2.3 x 0.8 x 0.8 cm abscess within the proximal abductor hallucis muscle in keeping with an abscess. Edema and phlegmon is seen within the adductor hallucis muscle without abscess. No evidence of osteomyelitis. -Patient currently on Ancef -Textile Machinery Instructor consulted, Dr. Mott. -s/p complex I D right foot abscess 03/21/24. Follow up culture. -ID consulted and recommends Ancef 6 g load continuous infusion via PICC with stop date 04/26/2024. Sepsis (POA) 2/2 above -Patient had episode of hypotension 03/21/24 evening after taking [place]. Received albumin 12.5 g IV and midodrine 5 mg PO once. Has dizziness, diaphoresis with hypotension to 86/49 while working with PT 03/22/24. -s/p NS 75 ml/hr x I -Monitor hemodynamic -BP is currently stable. Started tramadol and patient seems to tolerate. 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 KCl 20 mEq PO. -Monitor potassium daily and replace as indicated HTN -Patient currently normotensive on no medication Chronic anemia -Hemoglobin trending slowly downward, will monitor CBC daily. -Iron study compatible with AOCD. Normal vitamin B12 and folate. Moderate malnutrition -Hypoalbuminemia -Nutrition consulted. On supplements. Diet: 1999 ADA with Glucermao bateman TIAnastasiia Discussed with patient about goals of care. Explained in detail about the various categories of CODE STATUS. Answered all questions. Wishes are to proceed with FULL CODE STATUS. Advanced care planning performed for more than 16 minutes. Long conversation with patient and patient family at bedside regarding hospital course and plan. All questions answered. High complexity medical decision making Total care time spent was 68 minutes Disposition: Case management consulted for home IV ABx and home wound care. PT evaluated the patient and recommended IRF due to limited ambulation. Case management consulted for IRF. Patient was declined for Inpatient rehab, f/u protective services case worker for SNF 04/08: Patient's co-pay per day for correction facility is $500, and understandably she is unable to afford this. Current ID recommendations are for IV Ancef 6 g daily through PICC line. Patient's wound culture is sensitive to tetracyclines and Bactrim p.o., will inquire with infectious disease if we can consider switching to these medications to facilitate the transfer out of the hospital. 04/09: Potassium mildly low at 3.5, will replace with 40 mill equivalents p.o. x 1. ID recs for Keflex 1000 mg PO TID until 04/26/24 Med Rec Med Rec Discharge meds: Stop taking the following medications: INSULIN REGULAR (HumuLIN R) 100 UNIT/ML VIAL 10 UNITS SUBCUTANEOUS BEDTIME. Continue taking these medications: ASPIRIN EC (ECOTRIN) 81 MG TAB.EC 81 MILLIGRAM ORAL DAILY. GABAPENTIN (NEURONTIN) 100 MG CAP 100 MILLIGRAM ORAL THREE TIMES A DAY. INSULIN ASPART (NovoLOG) 100 UNIT/ML VIAL 10 UNITS SUBCUTANEOUS BEDTIME. Start taking the following new medications: CEPHALEXIN (KEFLEX) 500 MG CAP 1,000 MILLIGRAM ORAL EVERY 8 HOURS. Days = 20 Qty = 120 No Refills Instructions: 1000 mg PO TID x 17 days #QS metFORMIN (GLUCOPHAGE) 1,000 MG TAB 1,000 MILLIGRAM ORAL TWICE DAILY. Qty = 60 No Refills Instructions: TAKE WITH MEALS glyBURIDE (DIABETA) 2.5 MG TAB 2.5 MILLIGRAM ORAL DAILY. Days = 30 Qty = 30 No Refills Objective VS/I O Last Documented: Result Date Time Pulse Ox 100 04/09 1126 B/P 121/73 04/09 1126 B/P Mean 89.0 04/09 1126 Temp 98.2 04/09 1126 Pulse 87 04/09 1126 Resp 18 04/09 1126 O2 Delivery Room air 04/08 1110 24 hour I O ending at 0700: 04/08 1900 07/09 0700 Intake Total Output Total Balance Number 1 Bowel Movements General appearance: alert, awake, oriented Head/Eyes: atraumatic, normocephalic ENT: moist mucosal membranes, normal dentition Neck: full range of motion, no JVD Cardiovascular: normal capillary refill, normal heart sounds, regular rate rhythm, no heave Respiratory: aerating well, clear to auscultation, symmetric expansion, no distress Abdomen: non-tender, soft, no distention Genitourinary: no flank pain, no urinary catheter Extremities: decreased range of motion, moves all Musculoskeletal: decreased ROM, no CVA tenderness Neuro/GATE SUPERVISOR: alert, oriented X 3, normal speech, no motor deficits Skin: dry, normal temperature Ulcer: Type/cause: Dressing over right foot Results Findings/Data: Laboratory Tests: 04/08 04/08 04/09 04/09 04/09 1542 2014 0145 0146 0531 Chemistry Sodium (133 - 145 MMOL/L) 139 Potassium (3.6 - 5.2 MMOL/L) 3.5 L Chloride (100 - 108 MMOL/L) 103 Carbon Dioxide (22 - 32 MMOL/L) 32 BUN (6 - 20 MG/DL) 19 Creatinine (0.60 - 1.00 MG/DL) 0.57 L Estimated GFR (MDRD) (51 - 120) 109 Glucose (65 - 99 MG/DL) 198 H POC Glucose (65 - 99 MG/DL) 178 H 98 188 H 143 H Calcium (8.7 - 10.5 MG/DL) 8.8 Total Bilirubin (0.0 - 1.0 MG/DL) 0.2 AST (15 - 37 Units/L) 23 ALT (30 - 65 Units/L) 13 L Alkaline Phosphatase (50 - 136 Units/L) 91 Total Protein (6.4 - 8.2 G/DL) 6.8 Albumin (3.4 - 5.0 G/DL) 2.2 L Globulin (1.5 - 3.8 G/DL) 4.6 H Albumin/Globulin Ratio (1.1 - 2.2) 0.5 L Hematology WBC (4.80 - 10.80 x10 3/uL) 3.83 L RBC (4.2 - 5.4 x10 6/uL) 3.31 L Hgb (12.0 - 16.0 G/DL) 9.3 L Hct (37 - 47 %) 29.5 L MCV (81 - 99 FL) 89.1 MCH (27 - 31 PG) 28.1 MCHC (33 - 37 G/DL) 31.5 L RDW Coeff of Rupert (11.5 - 14.5 %) 13.0 Plt Count (150 - 450 x10 3/uL) 246 MPV (7.4 - 10.4 FL) 9.0 Neut % (Auto) (42 - 86 %) 42.1 Lymph % (Auto) (24 - 44 %) 41.3 [place] % (Auto) (0.0 - 4.0 %) 9.7 H Eos % (Auto) (0.0 - 2.7 %) 6.3 H Baso % (Auto) (0.0 - 0.5 %) 0.3 Eos # (Auto) (0.0 - 0.5 x10 3/uL) 0.24 Baso # (Auto) (0.0 - 0.2 x10 3/uL) 0.01 Abs Immat Gran (auto) (0.00 - 0.03 0.01 x10 3/uL) Absolute Neuts (auto) (1.8 - 7.7 x10 3/uL) 1.62 L Absolute Lymphs (auto) (1.0 - 4.8 1.58 x10 3/uL) Absolute Monos (auto) (0.0 - 0.8 x10 3/uL) 0.37 Absolute Nucleated RBC (0.0 - 0.2 0.0 X10 3/uL) Immature Gran % (0.0 - 2.0 %) 0.3 Nucleated RBC % (0.0 - 0.0 %) 0.0 04/09 1113 Chemistry POC Glucose (65 - 99 MG/DL) 138 H Discharge Instructions PCP PCP follow-up: PCP: Undefined Provider Discharge to: Home [facility] Care Additional Discharge Routines: PCP Follow-Up Diet: Diabetic Discharge management: greater than 30 mins Follow-up Appointments PCP follow-up: PCP: Undefined Provider PCP follow up timeframe: In 1-2 weeks at 1346 Addendum 1: 04/11/24 0801 by Garrett Rhodes DO Date of DC 04/10/24 at 0801 [facility] #:[id number] END OF [id number] 09:41:00 [facility] ([facility]) Infectious Dis. Progress Note REPORT#:[id number] REPORT STATUS: Signed REPORT INITIALIZATION DATE:04/09/24 TIME: 940 PATIENT: TSERING BRAUN UNIT #: [id number] RO[address]BED: [address] : [birth year] AGE: 54 SEX: F ATTEND: Garrett Rhodes DO ADM AUTHOR: Maral Patino APRN REPT SERVICE DT/TIME: 04/09/24940 * ALL edits or amendments must be made on the electronic/computer document * Subjective HPI: Reason for consultation foot abscess and cellulitis. History of present illness Patient is 54-year-old female present to the hospital complains of pain redness swelling of her right foot with evidence of possible abscess. She did not recall how it started. Patient has foot neuropathy. Temperature was 104. Patient is on currently BKA admitted to the ICU with insulin drip. CT of the right lower extremity revealed 2.3 x 0.8 4.8 cm abscess. Patient is currently on vancomycin and Zosyn. Podiatry consult is currently pending I believe. Review of systems; : patient does not report any headaches or visual disturbances. Rest of the 10 systems are normal or as above. Reviewed all the labs CBC CMP all imaging studies and it systems analyst consultant notes and primary care physician notes. Objective General VS/I O: Vital Signs Date Temp Pulse Resp B/P B/P Mean Pulse Ox FiO2 04/08-04/09 36.7-36.9 83-102 14-16 97-144/59-85 0.0-101.9 96-100 Last Documented: Result Date Time Pulse Ox 98 04/09 0759 B/P 144/79 04/099 B/P Mean 100.3 04/09 759 Temp 36.8 04/09 0759 Pulse 86 04/09 0759 Resp 16 04/09 0759 O2 Delivery Room air 04/08 1110 Vital Signs: Date Time Temp Pulse Resp B/P B/P Pulse O2 O2 Flow FiO2 Mean Ox Delivery Rate 04/09 0759 36.8 86 16 144/79 100.3 98 04/09 0331 36.8 83 16 113/73 86.4 99 04/08 2314 36.7 87 16 112/73 85.8 96 04/08 2013 36.7 102 16 97/61 72.5 99 07 1551 36.9 91 16 99/59 0.0 98 04/08 1110 36.9 91 14 136/85 101.9 100 Room air 24 hour I O ending at 0700: 04/09 0700 04/08 1900 Intake Total Output Total Balance Number 1 Bowel Movements PATIENT WEIGHT: Weight (lb): 149 Weight (oz): 4.05 Weight (kg): 67.585 Medications: Active Meds + DC'd Last 24 Hrs Potassium Chloride (K-DUR) 40 MEQ ONCE ONE PO (DC) Cefazolin Sodium (Cefazolin Sodium) 2 GM Q8H IV Sodium Chloride (NORMAL SALINE 10ML VIAL) 10 ML Docusate Sodium (COLACE 100MG CAPSULE) 100 MG BID PO Bisacodyl (DULCOLAX) 10 MG DAILY PRN PO Bisacodyl (DULCOLAX 10MG SUPPOSITORY) 10 MG DAILY PRN RECTAL Magnesium Hydroxide (MILK OF MAGNESIA) 30 ML Q12H PRN PRN PO Sodium Biphosphate/Sodium Phosphate (FLEET ENEMA) 1 BOT DAILY PRN PRN RECTAL (CKD) Tramadol HCl (ULTRAM 50MG TABLET) 50 MG Q6H PRN PRN PO Insulin Glargine (Lantus/Semglee) 15 UNIT Q12HR SUBQ Acetaminophen (TYLENOL 325MG TABLET) 650 MG Q4H PRN PRN PO Insulin Human Lispro (HumaLOG) 5 UNIT TID MEALS SUBQ Gabapentin (NEURONTIN 100MG CAPSULE) 100 MG TID PO Insulin Human Lispro (HumaLOG) AGGRESSIVE SLIDING SCALE (steroids, infection, resistant) AC HS 0200 SUBQ Dextrose (GLUCOSE) 16 GM ASDIR PRN PO Dextrose/Water (DEXTROSE 50% 50ML SYRINGE) 12.5 GM ASDIR PRN IV Ondansetron HCl (ZOFRAN 4 MG/2 ML) 4 MG Q4H PRN PRN IV Sodium Chloride (NORMAL SALINE 250ML IV BAG) 250 ML ASDIR PRN IV Physical Exam General appearance: alert, awake, oriented, no acute distress Wound/incision: Location: R foot Site condition: dressing clean dry, dressing intact Cardiovascular: normal heart sounds Respiratory: aerating well, symmetric expansion, no distress Abdomen: non-tender, soft Genitourinary: no urinary catheter Extremities: moves all Neuro/GATE SUPERVISOR: alert, oriented X 3 Skin: no rash Ulcer: Type/cause: Dressing over right foot Psychiatry: normal affect, normal judgment/insight, normal mood Results Findings/Data: Laboratory Tests 04/09 04/09 04/09 04/08 04/08 0531 0146 144 2014 154 Chemistry Sodium (133 - 145 MMOL/L) 139 Potassium (3.6 - 5.2 MMOL/L) 3.5 L Chloride (100 - 108 MMOL/L) 103 Carbon Dioxide (22 - 32 MMOL/L) 32 BUN (6 - 20 MG/DL) 19 Creatinine (0.60 - 1.00 MG/DL) 0.57 L Estimated GFR (MDRD) (51 - 120) 109 Glucose (65 - 99 MG/DL) 198 H POC Glucose (65 - 99 MG/DL) 143 H 188 H 98 178 H Calcium (8.7 - 10.5 MG/DL) 8.8 Total Bilirubin (0.0 - 1.0 MG/DL) 0.2 AST (15 - 37 Units/L) 23 ALT (30 - 65 Units/L) 13 L Alkaline Phosphatase (50 - 136 91 Units/L) Total Protein (6.4 - 8.2 G/DL) 6.8 Albumin (3.4 - 5.0 G/DL) 2.2 L Globulin (1.5 - 3.8 G/DL) 4.6 H Albumin/Globulin Ratio (1.1 - 2.2) 0.5 L 04/08 1107 Chemistry POC Glucose (65 - 99 MG/DL) 197 H Laboratory Tests 04/09 145 Hematology WBC (4.80 - 10.80 x10 3/uL) 3.83 L RBC (4.2 - 5.4 x10 6/uL) 3.31 L Hgb (12.0 - 16.0 G/DL) 9.3 L Hct (37 - 47 %) 29.5 L MCV (81 - 99 FL) 89.1 MCH (27 - 31 PG) 28.1 MCHC (33 - 37 G/DL) 31.5 L RDW Coeff of Rupert (11.5 - 14.5 %) 13.0 Plt Count (150 - 450 x10 3/uL) 246 MPV (7.4 - 10.4 FL) 9.0 Neut % (Auto) (42 - 86 %) 42.1 Lymph % (Auto) (24 - 44 %) 41.3 [place] % (Auto) (0.0 - 4.0 %) 9.7 H Eos % (Auto) (0.0 - 2.7 %) 6.3 H Baso % (Auto) (0.0 - 0.5 %) 0.3 Eos # (Auto) (0.0 - 0.5 x10 3/uL) 0.24 Baso # (Auto) (0.0 - 0.2 x10 3/uL) 0.01 Abs Immat Gran (auto) (0.00 - 0.03 x10 3/uL) 0.01 Absolute Neuts (auto) (1.8 - 7.7 x10 3/uL) 1.62 L Absolute Lymphs (auto) (1.0 - 4.8 x10 3/uL) 1.58 Absolute Monos (auto) (0.0 - 0.8 x10 3/uL) 0.37 Absolute Nucleated RBC (0.0 - 0.2 X10 3/uL) 0.0 Immature Gran % (0.0 - 2.0 %) 0.3 Nucleated RBC % (0.0 - 0.0 %) 0.0 Diagnosis, Assessment Plan Free Text A P: Assessment Patient is 54-year-old female present to the hospital complains of pain redness swelling of her right foot with evidence of possible abscess. She did not recall how it started. Patient has foot neuropathy. Temperature was 104. Patient is on currently BKA admitted to the ICU with insulin drip. CT of the right lower extremity revealed 2.3 x 0.8 4.8 cm abscess. Patient is currently on vancomycin and Zosyn. Podiatry consult is currently pending I believe. Plan At this time continue with IV vancomycin and Zosyn. Podiatry consultation for possible abscess drainage. Will follow and make further recommendations based on culture results. Thank you for the consultation. 03/14/24 transferred to [facility] floor 6/12 febrile Tmax 103.1; will continue to follow temperature curve with leukocytosis of 16k; will follow on room air; no acute distress noted reports she believes blister ruptured; dressing to R foot c,d,i - wound care notified reports pain to R foot controlled at this time blood cultures 03/12 negative so far; will follow urine cultures 03/13 Staph aureus will change antibiotic to IV Cefazolin monitor for antibiotic related adverse effects pending transfer to [facility] for podiatry evaluation will continue to follow clinically Recommendations per Dr Burks 03/17 -pending I D of abscess on 03/19 blood cultures 03/12 NGTD urine cultures 03/13 Staph aureus Cont. on IV Cefazolin monitor for antibiotic related adverse effects pending podiatry evaluation will continue to follow clinically Reviewed with Dr Burks 03/18/24 Patient remains afebrile, WBC 11 K Patient reports 1 loose bowel movement this morning, will follow blood cultures 03/12 NGTD urine cultures 03/13 Staph aureus Cont. on IV Cefazolin monitor for antibiotic related adverse effects Pending I D of abscess tomorrow; please send cultures Reviewed with Dr Burks 03/19/24 Patient remains afebrile, WBC 11 K Patient denies diarrhea blood cultures 03/12 no growth final urine cultures 03/13 Staph aureus Cont. on IV Cefazolin monitor for antibiotic related adverse effects Pending I D of abscess today please send cultures Reviewed with Dr Burks 03/20/24 Tmax 100.6. WBC 9K Will have nursing staff remove oldest IV Pending right foot I D scheduled for tomorrow Patient is currently on Ancef Reviewed with Dr. Burks 03/21/24 No further fevers, WBC 10K Pending right foot I D today Patient is currently on Ancef Reviewed with Dr. Burks 03/24 Patient status post 03/21/2024 complex I D right foot abscess, * cultures growing staph aureus Patient is currently on Ancef Recommend Ancef 6 g load continuous infusion via PICC with stop date 04/26/2024. Case management orders placed Recommendations from Dr. Burks 03/26/24 Patient has been afebrile, WBC 8K Patient is currently on Ancef Recommend Ancef 6 g load continuous infusion via PICC with stop date 04/26/2024. PICC line in place Pending discharge arrangements Reviewed with Dr. Burks 03/31 Cont. on Ancef Recommend Ancef 6 g load continuous infusion via PICC with stop date 04/26/2024 Pending discharge arrangements Reviewed with Dr. Burks 04/01/24 Patient remains afebrile Patient up in bedside chair. Patient denies any new complaints or concerns at today's visit Patient continues on Ancef Recommend Ancef 6 g continuous infusion via PICC with stop date 04/26/2024 Pending discharge arrangements Reviewed with Dr. Burks 04/02/24 Patient remains afebrile, WBC 5K Patient is currently on Ancef Recommend Ancef 6 g continuous infusion via PICC with stop date 04/26/2024 Pending discharge arrangements; possibly [place] Reviewed with Dr. Burks 04/04/24 Patient remains afebrile Family at bedside Patient is currently on Ancef; tolerating Recommend Ancef 6 g continuous infusion via PICC with stop date 04/26/2024 Pending discharge arrangements Reviewed with Dr. Burks 04/07 Patient remains afebrile, tolerating abx Recommend to continue on Ancef 6 g continuous infusion via PICC with stop date Pending discharge arrangements Reviewed with Dr. Burks 04/08/24 remains afebrile on room air; no acute distress noted richard wrap in place to R foot c,d,i patient with no new complaints at this time continue IV Cefazolin; stop date 04/26/24 monitor for antibiotic related adverse effects continue wound care; will follow will continue to follow clinically pending discharge arrangements; SNF Recommendations per Dr Burks 04/09/24 remains afebrile on room air; no acute distress noted patient up ambulating with physical therapy denies pain to R foot at time of examination continue IV Cefazolin monitor for antibiotic related adverse effects continue wound care; will follow will continue to follow clinically pending discharge arrangements Recommendations per Dr Burks OPAT IV Cefazolin 6 g slow continous infusion over 24 hrs; stop date 04/26/24 Weekly CBC, CMP, ESR, CRP Remove PICC line 04/27/24 Alternative; Keflex 1 g PO TID; stop date 04/26/24 Consultants: critical/draw bench operator helper at 1547 at 0115 RPT #:[id number] END OF [id number] 07:41:00 [facility] ([facility]) Hospitalist Progress Note REPORT#:[id number] REPORT STATUS: Signed REPORT INITIALIZATION DATE:04/09/24 TIME: 740 PATIENT: TSERING BRAUN UNIT #: [id number] ROOM/BED: [place] [address] : 71 AGE: 54 SEX: F ATTEND: Garrett Rhodes DO ADM AUTHOR: Garrett Rhodes DO REPT SERVICE DT/TIME: 04/09/24740 * ALL edits or amendments must be made on the electronic/computer document * Subjective Chief complaint: Right foot pain HPI: 03/14/24 Patient seen today at bedside. No acute overnight events. Patient reports continued right foot pain. Denies fever, chills, chest pain, abdominal pain or dysuria. Review of Systems Free Text ROS Notes Free Text ROS Notes: Negative except for pertinent positives noted in HPI. Objective General VS/I O: Vital Signs: Date Time Temp Pulse Resp B/P B/P Pulse O2 O2 Flow FiO2 Mean Ox Delivery Rate 04/09 0331 98.2 83 16 113/73 86.4 99 04/08 2314 98.1 87 16 112/73 85.8 96 04/08 2013 98.1 102 16 97/61 72.5 99 04/08 1551 98.4 91 16 99/59 0.0 98 04/08 1110 98.4 91 14 136/85 101.9 100 Room air 04/08 0839 98.1 94 16 151/81 104.4 100 24 hour I O ending at 0700: 04/08 1900 04/09 0700 Intake Total Output Total Balance Number 1 Bowel Movements PATIENT WEIGHT: Weight (lb): 149 Weight (oz): 4.05 Weight (kg): 67.585 Medications: Active Meds + DC'd Last 24 Hrs Cefazolin Sodium (Cefazolin Sodium) 2 GM Q8H IV Sodium Chloride (NORMAL SALINE 10ML VIAL) 10 ML Docusate Sodium (COLACE 100MG CAPSULE) 100 MG BID PO Bisacodyl (DULCOLAX) 10 MG DAILY PRN PO Bisacodyl (DULCOLAX 10MG SUPPOSITORY) 10 MG DAILY PRN RECTAL Magnesium Hydroxide (MILK OF MAGNESIA) 30 ML Q12H PRN PRN PO Sodium Biphosphate/Sodium Phosphate (FLEET ENEMA) 1 BOT DAILY PRN PRN RECTAL (CKD) Tramadol HCl (ULTRAM 50MG TABLET) 50 MG Q6H PRN PRN PO Insulin Glargine (Lantus/Semglee) 15 UNIT Q12HR SUBQ Acetaminophen (TYLENOL 325MG TABLET) 650 MG Q4H PRN PRN PO Insulin Human Lispro (HumaLOG) 5 UNIT TID MEALS SUBQ Gabapentin (NEURONTIN 100MG CAPSULE) 100 MG TID PO Insulin Human Lispro (HumaLOG) AGGRESSIVE SLIDING SCALE (steroids, infection, resistant) AC HS 0200 SUBQ Dextrose (GLUCOSE) 16 GM ASDIR PRN PO Dextrose/Water (DEXTROSE 50% 50ML SYRINGE) 12.5 GM ASDIR PRN IV Ondansetron HCl (ZOFRAN 4 MG/2 ML) 4 MG Q4H PRN PRN IV Sodium Chloride (NORMAL SALINE 250ML IV BAG) 250 ML ASDIR PRN IV Physical Exam General appearance: alert, awake Head/Eyes: atraumatic, normocephalic ENT: moist mucosal membranes, normal dentition Neck: full range of motion, no JVD Cardiovascular: normal capillary refill, normal heart sounds, regular rate rhythm, no heave Respiratory: aerating well, clear to auscultation, symmetric expansion, no distress Abdomen: non-tender, soft, no distention Genitourinary: no flank pain, no urinary catheter Extremities: decreased range of motion, moves all Musculoskeletal: decreased ROM, no CVA tenderness Neuro/GATE SUPERVISOR: alert, oriented X 3, normal speech, no motor deficits Skin: dry, normal temperature Ulcer: Type/cause: Dressing over right foot Results Findings/Data: Laboratory Tests 04/08 04/08 04/08 04/09 04/09 1107 1542 2015 0145 0146 Chemistry Sodium (133 - 145 MMOL/L) 139 Potassium (3.6 - 5.2 MMOL/L) 3.5 L Chloride (100 - 108 MMOL/L) 103 Carbon Dioxide (22 - 32 MMOL/L) 32 BUN (6 - 20 MG/DL) 19 Creatinine (0.60 - 1.00 MG/DL) 0.57 L Estimated GFR (MDRD) (51 - 120) 109 Glucose (65 - 99 MG/DL) 198 H POC Glucose (65 - 99 MG/DL) 197 H 178 H 98 188 H Calcium (8.7 - 10.5 MG/DL) 8.8 Total Bilirubin (0.0 - 1.0 MG/DL) 0.2 AST (15 - 37 Units/L) 23 ALT (30 - 65 Units/L) 13 L Alkaline Phosphatase (50 - 136 91 Units/L) Total Protein (6.4 - 8.2 G/DL) 6.8 Albumin (3.4 - 5.0 G/DL) 2.2 L Globulin (1.5 - 3.8 G/DL) 4.6 H Albumin/Globulin Ratio (1.1 - 2.2) 0.5 L 04/09 0531 Chemistry POC Glucose (65 - 99 MG/DL) 143 H Laboratory Tests 04/09 0145 Hematology WBC (4.80 - 10.80 x10 3/uL) 3.83 L RBC (4.2 - 5.4 x10 6/uL) 3.31 L Hgb (12.0 - 16.0 G/DL) 9.3 L Hct (37 - 47 %) 29.5 L MCV (81 - 99 FL) 89.1 MCH (27 - 31 PG) 28.1 MCHC (33 - 37 G/DL) 31.5 L RDW Coeff of Rupert (11.5 - 14.5 %) 13.0 Plt Count (150 - 450 x10 3/uL) 246 MPV (7.4 - 10.4 FL) 9.0 Neut % (Auto) (42 - 86 %) 42.1 Lymph % (Auto) (24 - 44 %) 41.3 [place] % (Auto) (0.0 - 4.0 %) 9.7 H Eos % (Auto) (0.0 - 2.7 %) 6.3 H Baso % (Auto) (0.0 - 0.5 %) 0.3 Eos # (Auto) (0.0 - 0.5 x10 3/uL) 0.24 Baso # (Auto) (0.0 - 0.2 x10 3/uL) 0.01 Abs Immat Gran (auto) (0.00 - 0.03 x10 3/uL) 0.01 Absolute Neuts (auto) (1.8 - 7.7 x10 3/uL) 1.62 L Absolute Lymphs (auto) (1.0 - 4.8 x10 3/uL) 1.58 Absolute Monos (auto) (0.0 - 0.8 x10 3/uL) 0.37 Absolute Nucleated RBC (0.0 - 0.2 X10 3/uL) 0.0 Immature Gran % (0.0 - 2.0 %) 0.3 Nucleated RBC % (0.0 - 0.0 %) 0.0 Diagnosis, Assessment Plan Consultants: critical/draw bench operator helper Free Text DxA P Notes Free text DxA P notes: Assessment and plan Right Foot Cellulitis and Abductor Longus Abscess -Rt foot XR Mild soft tissue swelling -CT RLE 2.3 x 0.8 x 0.8 cm abscess within the proximal abductor hallucis muscle in keeping with an abscess. Edema and phlegmon is seen within the adductor hallucis muscle without abscess. No evidence of osteomyelitis. -Patient currently on Ancef -Textile Machinery Instructor consulted, Dr. Mott. -s/p complex I D right foot abscess 03/21/24. Follow up culture. -ID consulted and recommends Ancef 6 g load continuous infusion via PICC with stop date 04/26/2024. Sepsis (POA) 2/2 above -Patient had episode of hypotension 03/21/24 evening after taking [place]. Received albumin 12.5 g IV and midodrine 5 mg PO once. Has dizziness, diaphoresis with hypotension to 86/49 while working with PT 03/22/24. -s/p NS 75 ml/hr x I -Monitor hemodynamic -BP is currently stable. Started tramadol and patient seems to tolerate. Diabetic ketoacidosis -Resolved Insulin-dependent type 2 diabetes mellitus poorly controlled with severe hyperglycemia (A1c 13.3) -Hemoglobin A1c 13.3 -Patient on Lantus 15 units sc q 12 hr, Humalog 5 units 3 times daily meals, and aggressive sliding scale -Continue with 2000 ADA diet Hypokalemia -K 3.5. KCl 20 mEq PO. -Monitor potassium daily and replace as indicated HTN -Patient currently normotensive on no medication Chronic anemia -Hemoglobin trending slowly downward, will monitor CBC daily. -Iron study compatible with AOCD. Normal vitamin B12 and folate. Moderate malnutrition -Hypoalbuminemia -Nutrition consulted. On supplements. Diet: 1999 ADA with Glucermao bateman TIAnastasiia Discussed with patient about goals of care. Explained in detail about the various categories of CODE STATUS. Answered all questions. Wishes are to proceed with FULL CODE STATUS. Advanced care planning performed for more than 16 minutes. Long conversation with patient and patient family at bedside regarding hospital course and plan. All questions answered. High complexity medical decision making Total care time spent was 68 minutes Disposition: Case management consulted for home IV ABx and home wound care. PT evaluated the patient and recommended IRF due to limited ambulation. Case management consulted for IRF. Patient was declined for Inpatient rehab, f/u protective services case worker for SNF 04/08: Patient's co-pay per day for correction facility is $500, and understandably she is unable to afford this. Current ID recommendations are for IV Ancef 6 g daily through PICC line. Patient's wound culture is sensitive to tetracyclines and Bactrim p.o., will inquire with infectious disease if we can consider switching to these medications to facilitate the transfer out of the hospital. 04/09: Potassium mildly low at 3.5, will replace with 40 mill equivalents p.o. x 1. at 0802 RPT #:[id number] END OF [id number] 14:16:00 [facility] ([facility]) Critical Care Progress Note REPORT#:[id number] REPORT STATUS: Signed REPORT INITIALIZATION DATE:04/08/24 TIME: 1415 PATIENT: TSERING BRAUN UNIT #: [id number] ROOM/BED: D331-1 : 71 AGE: 54 SEX: F ATTEND: Garrett Rhodes DO ADM AUTHOR: THAD ROLDAN DO R5 REPT SERVICE DT/TIME: 04/08/24 1416 * ALL edits or amendments must be made on the electronic/computer document * Thad Roldan 04/08/24 1416: Subjective Chief complaint: right foot pain Review of Systems Free Text ROS Notes Free Text ROS Notes: 14 point ROS completed and negative unless noted otherwise Objective General VS/I O Last Documented: Result Date Time Pulse Ox 100 04/08 1110 B/P 136/85 04/08 1110 B/P Mean 101.9 04/08 111 O2 Delivery Room air 04/08 1110 Temp 98.4 04/08 111 Pulse 91 04/08 1110 Resp 14 04/08 1110 PATIENT WEIGHT: Weight (lb): 149 Weight (oz): 4.05 Weight (kg): 67.585 Physical Exam Head/eyes: atraumatic, clear cornea, PERRLA ENT: dry mucosal membrane, poor dentition Neck: full range of motion, non-tender, no JVD, no masses or swelling Cardiovascular: normal capillary refill, normal heart sounds, regular rate and rhythm, normal S1/S2, no ectopy Respiratory: aerating well, clear to auscultation, symmetric expansion, no distress Abdomen: soft, non-tender Genitourinary: no bladder distention, no flank pain, no urinary catheter Extremities: edema (to RLE), moves all, normal capillary refill, normal range of motion, no calf tenderness, no clubbing, no cyanosis Musculoskeletal normal inspection, painless range of motion Neuro/GATE SUPERVISOR: alert, oriented X 3, normal speech, reflexes equal bilat, no motor deficits, no sensory deficits Skin: abscess (to right foot), dry, intact, normal color, normal temperature, no rash Ulcer: Type/cause: Dressing over right foot Wound/incision: Location: right foot blister Site condition: no drainage Psychiatry: normal affect, normal judgment/insight, normal mood, not homicidal, not suicidal, no hallucinations Results Findings/data: Laboratory Tests 04/08 04/08 04/08 04/08 04/07 1107 0551 0239 0202 1954 Chemistry Sodium (133 - 145 MMOL/L) 136 Potassium (3.6 - 5.2 MMOL/L) 3.8 Chloride (100 - 108 MMOL/L) 99 L Carbon Dioxide (22 - 32 MMOL/L) 33 H BUN (6 - 20 MG/DL) 20 Creatinine (0.60 - 1.00 MG/DL) 0.55 L Estimated GFR (MDRD) (51 - 120) 110 Glucose (65 - 99 MG/DL) 163 H POC Glucose (65 - 99 MG/DL) 197 H 85 174 H 146 H Calcium (8.7 - 10.5 MG/DL) 8.8 Total Bilirubin (0.0 - 1.0 MG/DL) 0.3 AST (15 - 37 Units/L) 21 ALT (30 - 65 Units/L) 12 L Alkaline Phosphatase (50 - 136 Units/L) 94 Total Protein (6.4 - 8.2 G/DL) 8.0 Albumin (3.4 - 5.0 G/DL) 2.5 L Globulin (1.5 - 3.8 G/DL) 5.5 H Albumin/Globulin Ratio (1.1 - 2.2) 0.5 L 04/07 1608 Chemistry POC Glucose (65 - 99 MG/DL) 105 H Laboratory Tests 04/08 0202 Hematology WBC (4.80 - 10.80 x10 3/uL) 4.78 L RBC (4.2 - 5.4 x10 6/uL) 3.80 L Hgb (12.0 - 16.0 G/DL) 10.7 L Hct (37 - 47 %) 34.0 L MCV (81 - 99 FL) 89.5 MCH (27 - 31 PG) 28.2 MCHC (33 - 37 G/DL) 31.5 L RDW Coeff of Rupert (11.5 - 14.5 %) 13.0 Plt Count (150 - 450 x10 3/uL) 254 MPV (7.4 - 10.4 FL) 8.6 Neut % (Auto) (42 - 86 %) 47.8 Lymph % (Auto) (24 - 44 %) 39.1 [place] % (Auto) (0.0 - 4.0 %) 7.1 H Eos % (Auto) (0.0 - 2.7 %) 5.6 H Baso % (Auto) (0.0 - 0.5 %) 0.2 Eos # (Auto) (0.0 - 0.5 x10 3/uL) 0.27 Baso # (Auto) (0.0 - 0.2 x10 3/uL) 0.01 Abs Immat Gran (auto) (0.00 - 0.03 x10 3/uL) 0.01 Absolute Neuts (auto) (1.8 - 7.7 x10 3/uL) 2.28 Absolute Lymphs (auto) (1.0 - 4.8 x10 3/uL) 1.87 Absolute Monos (auto) (0.0 - 0.8 x10 3/uL) 0.34 Absolute Nucleated RBC (0.0 - 0.2 X10 3/uL) 0.0 Immature Gran % (0.0 - 2.0 %) 0.2 Nucleated RBC % (0.0 - 0.0 %) 0.0 Laboratory Tests 04/08/24 0202: [Embedded Image Not Available] Diagnosis, Assessment Plan Free text A P: A/p Acute renal failure Diabetic ketoacidosis Severe sepsis Right foot abscess Normocytic anemia Hypokalemia Plan Patient's mentation appears to be at baseline, no acute neuroconcerns She is saturating well on room air Hemodynamically stable, will continue to monitor closely Monitor renal function closely Strict I's and O's Avoid nephrotoxic medications Glucose control with insulin Continue with antibiotics as per ID; Recommend to continue on Ancef 6 g continuous infusion via PICC with stop date 04/26/[address] ID is following Tolerating a diet DVT prophylaxis GI prophylaxis CODE STATUS to full code Medical decision making: High complexity Rest of the management per primary Consultants: critical/draw bench operator helper Jordan Lee 04/08/24 1418: Attestations Physician Attestation Agree w/findings plan: Patient seen and examined at bedside with fellow. Chart, laboratory data and imaging studies reviewed and interpreted personally. Events noted. I discussed the case with the fellow and agree with the findings and plan as documented in the fellow's note. at 1417 at 1417 RPT #:[id number] END OF [id number] 10:17:00 [facility] ([facility]) Infectious Dis. Progress Note REPORT#:[id number] REPORT STATUS: Signed REPORT INITIALIZATION DATE:04/08/24 TIME: 1017 PATIENT: TSERING BRAUN UNIT #: [id number] ROOM/BED: D331-1 : 71 AGE: 54 SEX: F ATTEND: Garrett Rhoeds DO ADM AUTHOR: Maral Patino APRN REPT SERVICE DT/TIME: 04/08/24 1017 * ALL edits or amendments must be made on the electronic/computer document * Subjective HPI: Reason for consultation foot abscess and cellulitis. History of present illness Patient is 54-year-old female present to the hospital complains of pain redness swelling of her right foot with evidence of possible abscess. She did not recall how it started. Patient has foot neuropathy. Temperature was 104. Patient is on currently BKA admitted to the ICU with insulin drip. CT of the right lower extremity revealed 2.3 x 0.8 4.8 cm abscess. Patient is currently on vancomycin and Zosyn. Podiatry consult is currently pending I believe. Review of systems; : patient does not report any headaches or visual disturbances. Rest of the 10 systems are normal or as above. Reviewed all the labs CBC CMP all imaging studies and it systems analyst consultant notes and primary care physician notes. Objective General VS/I O: Vital Signs Date Temp Pulse Resp B/P B/P Mean Pulse Ox FiO2 04/07-04/08 36.4-36.9 80-94 12-18 84-151/45-83 58-104.4 94-100 Last Documented: Result Date Time Pulse Ox 100 / 0839 B/P 151/81 04/08 0839 B/P Mean 104.4 04/08 0839 Temp 36.7 / 0839 Pulse 94 / 0839 Resp 16 04/08 0839 O2 Delivery Room air 04/08 347 Vital Signs: Date Time Temp Pulse Resp B/P B/P Pulse O2 O2 Flow FiO2 Mean Ox Delivery Rate 04/08 0839 36.7 94 16 151/81 104.4 100 / 0347 36.9 88 17 144/83 103.1 95 Room air 04/08 0022 86 16 144/83 103.5 94 04/07 2041 94 16 108/68 81.3 04/07 2029 92 102/65 77.3 04/07 2023 80 16 89/53 65.4 96 04/07 2000 36.8 90 18 84/45 58 96 04/07 1700 36.7 87 12 106/67 80.0 97 04/07 1211 36.4 92 14 108/70 82.7 98 PATIENT WEIGHT: Weight (lb): 149 Weight (oz): 4.05 Weight (kg): 67.585 Medications: Active Meds + DC'd Last 24 Hrs Lactated Ringer's (LACTATED RINGERS 1000ML) 1,000 ML BOLUS ONCE ONE IV ( DC) Midodrine (PROAMATINE 5MG TABLET) 5 MG ONCE ONE PO (DC) Cefazolin Sodium (Cefazolin Sodium) 2 GM Q8H IV Sodium Chloride (NORMAL SALINE 10ML VIAL) 10 ML Docusate Sodium (COLACE 100MG CAPSULE) 100 MG BID PO Bisacodyl (DULCOLAX) 10 MG DAILY PRN PO Bisacodyl (DULCOLAX 10MG SUPPOSITORY) 10 MG DAILY PRN RECTAL Magnesium Hydroxide (MILK OF MAGNESIA) 30 ML Q12H PRN PRN PO Sodium Biphosphate/Sodium Phosphate (FLEET ENEMA) 1 BOT DAILY PRN PRN RECTAL (CKD) Tramadol HCl (ULTRAM 50MG TABLET) 50 MG Q6H PRN PRN PO Insulin Glargine (Lantus/Semglee) 15 UNIT Q12HR SUBQ Acetaminophen (TYLENOL 325MG TABLET) 650 MG Q4H PRN PRN PO Insulin Human Lispro (HumaLOG) 5 UNIT TID MEALS SUBQ Gabapentin (NEURONTIN 100MG CAPSULE) 100 MG TID PO Insulin Human Lispro (HumaLOG) AGGRESSIVE SLIDING SCALE (steroids, infection, resistant) AC HS 0200 SUBQ Dextrose (GLUCOSE) 16 GM ASDIR PRN PO Dextrose/Water (DEXTROSE 50% 50ML SYRINGE) 12.5 GM ASDIR PRN IV Ondansetron HCl (ZOFRAN 4 MG/2 ML) 4 MG Q4H PRN PRN IV Sodium Chloride (NORMAL SALINE 250ML IV BAG) 250 ML ASDIR PRN IV Physical Exam General appearance: alert, awake, oriented, no acute distress Wound/incision: Location: R foot Site condition: dressing clean dry, dressing intact Cardiovascular: normal heart sounds Respiratory: aerating well, symmetric expansion, no distress Abdomen: non-tender, soft Genitourinary: no urinary catheter Extremities: moves all Neuro/GATE SUPERVISOR: alert, oriented X 3 Skin: no rash Ulcer: Type/cause: Dressing over right foot Psychiatry: normal affect, normal judgment/insight, normal mood Results Findings/Data: Laboratory Tests 04/08 04/08 04/08 04/07 04/07 0551 0239 0202 1954 1608 Chemistry Sodium (133 - 145 MMOL/L) 136 Potassium (3.6 - 5.2 MMOL/L) 3.8 Chloride (100 - 108 MMOL/L) 99 L Carbon Dioxide (22 - 32 MMOL/L) 33 H BUN (6 - 20 MG/DL) 20 Creatinine (0.60 - 1.00 MG/DL) 0.55 L Estimated GFR (MDRD) (51 - 120) 110 Glucose (65 - 99 MG/DL) 163 H POC Glucose (65 - 99 MG/DL) 85 174 H 146 H 105 H Calcium (8.7 - 10.5 MG/DL) 8.8 Total Bilirubin (0.0 - 1.0 MG/DL) 0.3 AST (15 - 37 Units/L) 21 ALT (30 - 65 Units/L) 12 L Alkaline Phosphatase (50 - 136 94 Units/L) Total Protein (6.4 - 8.2 G/DL) 8.0 Albumin (3.4 - 5.0 G/DL) 2.5 L Globulin (1.5 - 3.8 G/DL) 5.5 H Albumin/Globulin Ratio (1.1 - 2.2) 0.5 L 04/07 1053 Chemistry POC Glucose (65 - 99 MG/DL) 191 H Laboratory Tests 04/08 0202 Hematology WBC (4.80 - 10.80 x10 3/uL) 4.78 L RBC (4.2 - 5.4 x10 6/uL) 3.80 L Hgb (12.0 - 16.0 G/DL) 10.7 L Hct (37 - 47 %) 34.0 L MCV (81 - 99 FL) 89.5 MCH (27 - 31 PG) 28.2 MCHC (33 - 37 G/DL) 31.5 L RDW Coeff of Rupert (11.5 - 14.5 %) 13.0 Plt Count (150 - 450 x10 3/uL) 254 MPV (7.4 - 10.4 FL) 8.6 Neut % (Auto) (42 - 86 %) 47.8 Lymph % (Auto) (24 - 44 %) 39.1 [place] % (Auto) (0.0 - 4.0 %) 7.1 H Eos % (Auto) (0.0 - 2.7 %) 5.6 H Baso % (Auto) (0.0 - 0.5 %) 0.2 Eos # (Auto) (0.0 - 0.5 x10 3/uL) 0.27 Baso # (Auto) (0.0 - 0.2 x10 3/uL) 0.01 Abs Immat Gran (auto) (0.00 - 0.03 x10 3/uL) 0.01 Absolute Neuts (auto) (1.8 - 7.7 x10 3/uL) 2.28 Absolute Lymphs (auto) (1.0 - 4.8 x10 3/uL) 1.87 Absolute Monos (auto) (0.0 - 0.8 x10 3/uL) 0.34 Absolute Nucleated RBC (0.0 - 0.2 X10 3/uL) 0.0 Immature Gran % (0.0 - 2.0 %) 0.2 Nucleated RBC % (0.0 - 0.0 %) 0.0 Diagnosis, Assessment Plan Free Text A P: Assessment Patient is 54-year-old female present to the hospital complains of pain redness swelling of her right foot with evidence of possible abscess. She did not recall how it started. Patient has foot neuropathy. Temperature was 104. Patient is on currently BKA admitted to the ICU with insulin drip. CT of the right lower extremity revealed 2.3 x 0.8 4.8 cm abscess. Patient is currently on vancomycin and Zosyn. Podiatry consult is currently pending I believe. Plan At this time continue with IV vancomycin and Zosyn. Podiatry consultation for possible abscess drainage. Will follow and make further recommendations based on culture results. Thank you for the consultation. 03/14/24 transferred to [facility] floor 03/13 febrile Tmax 103.1; will continue to follow temperature curve with leukocytosis of 16k; will follow on room air; no acute distress noted reports she believes blister ruptured; dressing to R foot c,d,i - wound care notified reports pain to R foot controlled at this time blood cultures 03/12 negative so far; will follow urine cultures 03/13 Staph aureus will change antibiotic to IV Cefazolin monitor for antibiotic related adverse effects pending transfer to [facility] for podiatry evaluation will continue to follow clinically Recommendations per Dr Burks 03/17 -pending I D of abscess on 03/19 blood cultures 03/12 NGTD urine cultures 03/13 Staph aureus Cont. on IV Cefazolin monitor for antibiotic related adverse effects pending podiatry evaluation will continue to follow clinically Reviewed with Dr Burks 03/18/24 Patient remains afebrile, WBC 11 K Patient reports 1 loose bowel movement this morning, will follow blood cultures 03/12 NGTD urine cultures 03/13 Staph aureus Cont. on IV Cefazolin monitor for antibiotic related adverse effects Pending I D of abscess tomorrow; please send cultures Reviewed with Dr Burks 03/19/24 Patient remains afebrile, WBC 11 K Patient denies diarrhea blood cultures 03/12 no growth final urine cultures 03/13 Staph aureus Cont. on IV Cefazolin monitor for antibiotic related adverse effects Pending I D of abscess today please send cultures Reviewed with Dr Burks 03/20/24 Tmax 100.6. WBC 9K Will have nursing staff remove oldest IV Pending right foot I D scheduled for tomorrow Patient is currently on Ancef Reviewed with Dr. Burks 03/21/24 No further fevers, WBC 10K Pending right foot I D today Patient is currently on Ancef Reviewed with Dr. Burks 03/24 Patient status post 03/21/2024 complex I D right foot abscess, * cultures growing staph aureus Patient is currently on Ancef Recommend Ancef 6 g load continuous infusion via PICC with stop date 04/26/2024. Case management orders placed Recommendations from Dr. Burks 03/26/24 Patient has been afebrile, WBC 8K Patient is currently on Ancef Recommend Ancef 6 g load continuous infusion via PICC with stop date 04/26/2024. PICC line in place Pending discharge arrangements Reviewed with Dr. Burks 03/31 Cont. on Ancef Recommend Ancef 6 g load continuous infusion via PICC with stop date 04/26/2024 Pending discharge arrangements Reviewed with Dr. Burks 04/01/24 Patient remains afebrile Patient up in bedside chair. Patient denies any new complaints or concerns at today's visit Patient continues on Ancef Recommend Ancef 6 g continuous infusion via PICC with stop date 04/26/2024 Pending discharge arrangements Reviewed with Dr. Burks 04/02/24 Patient remains afebrile, WBC 5K Patient is currently on Ancef Recommend Ancef 6 g continuous infusion via PICC with stop date 04/26/2024 Pending discharge arrangements; possibly [place] Reviewed with Dr. Burks 04/04/24 Patient remains afebrile Family at bedside Patient is currently on Ancef; tolerating Recommend Ancef 6 g continuous infusion via PICC with stop date 04/26/2024 Pending discharge arrangements Reviewed with Dr. Burks 04/07 Patient remains afebrile, tolerating abx Recommend to continue on Ancef 6 g continuous infusion via PICC with stop date Pending discharge arrangements Reviewed with Dr. Burks 04/08/24 remains afebrile on room air; no acute distress noted richard wrap in place to R foot c,d,i patient with no new complaints at this time continue IV Cefazolin; stop date 04/26/24 monitor for antibiotic related adverse effects continue wound care; will follow will continue to follow clinically pending discharge arrangements; SNF Recommendations per Dr Burks OPAT IV Cefazolin 6 g slow continous infusion over 24 hrs; stop date 04/26/24 Weekly CBC, CMP, ESR, CRP Remove PICC line 04/27/24 Consultants: critical/draw bench operator helper at 2013 at 0115 RPT #:[id number] END OF [id number] 07:46:00 [facility] ([facility]) Hospitalist Progress Note REPORT#:[id number] REPORT STATUS: Signed REPORT INITIALIZATION DATE:04/08/24 TIME: 745 PATIENT: TSERING BRAUN UNIT #: [id number] ROOM/BED: [place] [address] : 71 AGE: 54 SEX: F ATTEND: Garrett Rhodes DO ADM AUTHOR: Garrett Rhodes DO REPT SERVICE DT/TIME: 04/08/24 0746 * ALL edits or amendments must be made on the electronic/computer document * Subjective Chief complaint: Right foot pain HPI: 03/14/24 Patient seen today at bedside. No acute overnight events. Patient reports continued right foot pain. Denies fever, chills, chest pain, abdominal pain or dysuria. Review of Systems Free Text ROS Notes Free Text ROS Notes: Negative except for pertinent positives noted in HPI. Objective General VS/I O: Vital Signs: Date Time Temp Pulse Resp B/P B/P Pulse O2 O2 Flow FiO2 Mean Ox Delivery Rate 04/08 0347 98.4 88 17 144/83 103.1 95 Room air 04/08 0022 86 16 144/83 103.5 94 04/07 2041 94 16 108/68 81.3 04/07 2029 92 102/65 77.3 04/07 202 80 16 89/53 65.4 96 04/07 2000 98.2 90 18 84/45 58 96 04/07 1700 98.1 87 12 106/67 80.0 97 04/07 1211 97.5 92 14 108/70 82.7 98 PATIENT WEIGHT: Weight (lb): 149 Weight (oz): 4.05 Weight (kg): 67.585 Medications: Active Meds + DC'd Last 24 Hrs Lactated Ringer's (LACTATED RINGERS 1000ML) 1,000 ML BOLUS ONCE ONE IV ( DC) Midodrine (PROAMATINE 5MG TABLET) 5 MG ONCE ONE PO (DC) Cefazolin Sodium (Cefazolin Sodium) 2 GM Q8H IV Sodium Chloride (NORMAL SALINE 10ML VIAL) 10 ML Docusate Sodium (COLACE 100MG CAPSULE) 100 MG BID PO Bisacodyl (DULCOLAX) 10 MG DAILY PRN PO Bisacodyl (DULCOLAX 10MG SUPPOSITORY) 10 MG DAILY PRN RECTAL Magnesium Hydroxide (MILK OF MAGNESIA) 30 ML Q12H PRN PRN PO Sodium Biphosphate/Sodium Phosphate (FLEET ENEMA) 1 BOT DAILY PRN PRN RECTAL (CKD) Tramadol HCl (ULTRAM 50MG TABLET) 50 MG Q6H PRN PRN PO Insulin Glargine (Lantus/Semglee) 15 UNIT Q12HR SUBQ Acetaminophen (TYLENOL 325MG TABLET) 650 MG Q4H PRN PRN PO Insulin Human Lispro (HumaLOG) 5 UNIT TID MEALS SUBQ Gabapentin (NEURONTIN 100MG CAPSULE) 100 MG TID PO Insulin Human Lispro (HumaLOG) AGGRESSIVE SLIDING SCALE (steroids, infection, resistant) AC HS 0200 SUBQ Dextrose (GLUCOSE) 16 GM ASDIR PRN PO Dextrose/Water (DEXTROSE 50% 50ML SYRINGE) 12.5 GM ASDIR PRN IV Ondansetron HCl (ZOFRAN 4 MG/2 ML) 4 MG Q4H PRN PRN IV Sodium Chloride (NORMAL SALINE 250ML IV BAG) 250 ML ASDIR PRN IV Physical Exam General appearance: alert, awake, oriented Head/Eyes: atraumatic, normocephalic ENT: moist mucosal membranes, normal dentition Neck: full range of motion, no JVD Cardiovascular: normal capillary refill, normal heart sounds, regular rate rhythm, no heave Respiratory: aerating well, clear to auscultation, symmetric expansion, no distress Abdomen: non-tender, soft, no distention Genitourinary: no flank pain, no urinary catheter Extremities: decreased range of motion, moves all Musculoskeletal: decreased ROM, no CVA tenderness Neuro/GATE SUPERVISOR: alert, oriented X 3, normal speech, no motor deficits Skin: dry, normal temperature Ulcer: Type/cause: Dressing over right foot Results Findings/Data: Laboratory Tests 04/07 04/07 04/07 04/08 04/08 1053 1608 1954 0202 0239 Chemistry Sodium (133 - 145 MMOL/L) 136 Potassium (3.6 - 5.2 MMOL/L) 3.8 Chloride (100 - 108 MMOL/L) 99 L Carbon Dioxide (22 - 32 MMOL/L) 33 H BUN (6 - 20 MG/DL) 20 Creatinine (0.60 - 1.00 MG/DL) 0.55 L Estimated GFR (MDRD) (51 - 120) 110 Glucose (65 - 99 MG/DL) 163 H POC Glucose (65 - 99 MG/DL) 191 H 105 H 146 H 174 H Calcium (8.7 - 10.5 MG/DL) 8.8 Total Bilirubin (0.0 - 1.0 MG/DL) 0.3 AST (15 - 37 Units/L) 21 ALT (30 - 65 Units/L) 12 L Alkaline Phosphatase (50 - 136 94 Units/L) Total Protein (6.4 - 8.2 G/DL) 8.0 Albumin (3.4 - 5.0 G/DL) 2.5 L Globulin (1.5 - 3.8 G/DL) 5.5 H Albumin/Globulin Ratio (1.1 - 2.2) 0.5 L 04/08 0551 Chemistry POC Glucose (65 - 99 MG/DL) 85 Laboratory Tests 04/08 0202 Hematology WBC (4.80 - 10.80 x10 3/uL) 4.78 L RBC (4.2 - 5.4 x10 6/uL) 3.80 L Hgb (12.0 - 16.0 G/DL) 10.7 L Hct (37 - 47 %) 34.0 L MCV (81 - 99 FL) 89.5 MCH (27 - 31 PG) 28.2 MCHC (33 - 37 G/DL) 31.5 L RDW Coeff of [place] (11.5 - 14.5 %) 13.0 Plt Count (150 - 450 x10 3/uL) 254 MPV (7.4 - 10.4 FL) 8.6 Neut % (Auto) (42 - 86 %) 47.8 Lymph % (Auto) (24 - 44 %) 39.1 [place] % (Auto) (0.0 - 4.0 %) 7.1 H Eos % (Auto) (0.0 - 2.7 %) 5.6 H Baso % (Auto) (0.0 - 0.5 %) 0.2 Eos # (Auto) (0.0 - 0.5 x10 3/uL) 0.27 Baso # (Auto) (0.0 - 0.2 x10 3/uL) 0.01 Abs Immat Gran (auto) (0.00 - 0.03 x10 3/uL) 0.01 Absolute Neuts (auto) (1.8 - 7.7 x10 3/uL) 2.28 Absolute Lymphs (auto) (1.0 - 4.8 x10 3/uL) 1.87 Absolute Monos (auto) (0.0 - 0.8 x10 3/uL) 0.34 Absolute Nucleated RBC (0.0 - 0.2 X10 3/uL) 0.0 Immature Gran % (0.0 - 2.0 %) 0.2 Nucleated RBC % (0.0 - 0.0 %) 0.0 Diagnosis, Assessment Plan Consultants: critical/draw bench operator helper Free Text DxA P Notes Free text DxA P notes: Assessment and plan Right Foot Cellulitis and Abductor Longus Abscess -Rt foot XR Mild soft tissue swelling -CT RLE 2.3 x 0.8 x 0.8 cm abscess within the proximal abductor hallucis muscle in keeping with an abscess. Edema and phlegmon is seen within the adductor hallucis muscle without abscess. No evidence of osteomyelitis. -Patient currently on Ancef -Textile Machinery Instructor consulted, Dr. Mott. -s/p complex I D right foot abscess 03/21/24. Follow up culture. -ID consulted and recommends Ancef 6 g load continuous infusion via PICC with stop date 04/26/2024. Sepsis (POA) 2/2 above -Patient had episode of hypotension 03/21/24 evening after taking [place]. Received albumin 12.5 g IV and midodrine 5 mg PO once. Has dizziness, diaphoresis with hypotension to 86/49 while working with PT 03/22/24. -s/p NS 75 ml/hr x I -Monitor hemodynamic -BP is currently stable. Started tramadol and patient seems to tolerate. 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 KCl 20 mEq PO. -Monitor potassium daily and replace as indicated HTN -Patient currently normotensive on no medication Chronic anemia -Hemoglobin trending slowly downward, will monitor CBC daily. -Iron study compatible with AOCD. Normal vitamin B12 and folate. Moderate malnutrition -Hypoalbuminemia -Nutrition consulted. On supplements. Diet: 1999 ADA with Clarita MILLER Discussed with patient about goals of care. Explained in detail about the various categories of CODE STATUS. Answered all questions. Wishes are to proceed with FULL CODE STATUS. Advanced care planning performed for more than 16 minutes. Long conversation with patient and patient family at bedside regarding hospital course and plan. All questions answered. High complexity medical decision making Total care time spent was 68 minutes Disposition: Case management consulted for home IV ABx and home wound care. PT evaluated the patient and recommended IRF due to limited ambulation. Case management consulted for IRF. Patient was declined for Inpatient rehab, f/u protective services case worker for SNF 04/08: Patient's co-pay per day for correction facility is $500, and understandably she is unable to afford this. Current ID recommendations are for IV Ancef 6 g daily through PICC line. Patient's wound culture is sensitive to tetracyclines and Bactrim p.o., will inquire with infectious disease if we can consider switching to these medications to facilitate the transfer out of the hospital. at 0605 RPT #:[id number] END OF [id number] 18:04:00 [facility] ([facility]) Critical Care Progress Note REPORT#:[id number] REPORT STATUS: Signed REPORT INITIALIZATION DATE:04/07/24 TIME: 1803 PATIENT: TSERING BRAUN UNIT #: [id number] ROOM/BED: [facility] : 71 AGE: 54 SEX: F ATTEND: Garrett Rhodes DO ADM AUTHOR: THAD ROLDAN DO R5 REPT SERVICE DT/TIME: 04/07/241803 * ALL edits or amendments must be made on the electronic/computer document * Thad Roldan 04/07/241803: Subjective Chief complaint: right foot pain Review of Systems Free Text ROS Notes Free Text ROS Notes: 14 point ROS completed and negative unless noted otherwise Objective General VS/I O Last Documented: Result Date Time Pulse Ox 97 04/07 1700 B/P 106/67 04/07 1700 B/P Mean 80.0 04/07 1700 Temp 98.1 04/07 1700 Pulse 87 04/07 1700 Resp 12 04/07 1700 O2 Delivery Room air 04/07 0328 24 hour I O ending at 0700: 04/07 0700 04/06 1900 Intake Total Output Total Balance Number Voids 3 PATIENT WEIGHT: Weight (lb): 149 Weight (oz): 4.05 Weight (kg): 67.585 Physical Exam Head/eyes: atraumatic, clear cornea, PERRLA ENT: dry mucosal membrane, poor dentition Neck: full range of motion, non-tender, no JVD, no masses or swelling Cardiovascular: normal capillary refill, normal heart sounds, regular rate and rhythm, normal S1/S2, no ectopy Respiratory: aerating well, clear to auscultation, symmetric expansion, no distress Abdomen: soft, non-tender Genitourinary: no bladder distention, no flank pain, no urinary catheter Extremities: edema (to RLE), moves all, normal capillary refill, normal range of motion, no calf tenderness, no clubbing, no cyanosis Musculoskeletal normal inspection, painless range of motion Neuro/GATE SUPERVISOR: alert, oriented X 3, normal speech, reflexes equal bilat, no motor deficits, no sensory deficits Skin: abscess (to right foot), dry, intact, normal color, normal temperature, no rash Ulcer: Type/cause: Dressing over right foot Wound/incision: Location: right foot blister Site condition: no drainage Psychiatry: normal affect, normal judgment/insight, normal mood, not homicidal, not suicidal, no hallucinations Results Findings/data: Laboratory Tests 04/07 04/07 04/07 04/07 04/06 1608 1053 0627 0105 2011 Chemistry POC Glucose (65 - 99 MG/DL) 105 H 191 H 109 H 84 104 H Diagnosis, Assessment Plan Free text A P: A/p Acute renal failure Diabetic ketoacidosis Severe sepsis Right foot abscess Normocytic anemia Hypokalemia Plan Patient's mentation appears to be at baseline, no acute neuroconcerns She is saturating well on room air Hemodynamically stable, will continue to monitor closely Monitor renal function closely Strict I's and O's Avoid nephrotoxic medications Glucose control with insulin Continue with antibiotics as per ID; Recommend to continue on Ancef 6 g continuous infusion via PICC with stop date 04/26/[address] ID is following Tolerating a diet DVT prophylaxis GI prophylaxis CODE STATUS to full code Medical decision making: High complexity Rest of the management per primary Consultants: critical/draw bench operator helper Jordan Lee 04/07/24 1807: Attestations Physician Attestation Agree w/findings plan: Patient seen and examined at bedside with fellow. Chart, laboratory data and imaging studies reviewed and interpreted personally. Events noted. I discussed the case with the fellow and agree with the findings and plan as documented in the fellow's note. at 1807 at 1807 RPT #:[id number] END OF [id number] 12:28:00 [facility] ([facility]) Hospitalist Progress Note REPORT#:[id number] REPORT STATUS: Signed REPORT INITIALIZATION DATE:04/07/24 TIME: 1227 PATIENT: TSERING BRAUN UNIT #: [id number] ROOM/BED: [place] [address] : 71 AGE: 54 SEX: F ATTEND: Garrett Rhodes DO ADM AUTHOR: Garrett Rhodes DO REPT SERVICE DT/TIME: 04/07/24 1228 * ALL edits or amendments must be made on the electronic/computer document * Subjective Chief complaint: Right foot pain HPI: 03/14/24 Patient seen today at bedside. No acute overnight events. Patient reports continued right foot pain. Denies fever, chills, chest pain, abdominal pain or dysuria. Review of Systems Free Text ROS Notes Free Text ROS Notes: Negative except for pertinent positives noted in HPI. Objective General VS/I O: Vital Signs: Date Time Temp Pulse Resp B/P B/P Pulse O2 O2 Flow FiO2 Mean Ox Delivery Rate 04/07 1211 97.5 92 14 108/70 82.7 98 04/07 0746 98.4 88 12 156/81 106.3 97 04/07 0328 98.4 82 18 157/97 117.3 99 Room air 04/06 2354 98.2 81 18 110/66 80.7 97 Room air 04/06 2013 98.1 91 17 109/70 83.1 98 Room air 04/06 1804 98.2 89 14 134/83 100.0 100 24 hour I O ending at 0700: 04/06 1900 07/07 0700 Intake Total Output Total Balance Number Voids 3 PATIENT WEIGHT: Weight (lb): 149 Weight (oz): 4.05 Weight (kg): 67.585 Medications: Active Meds + DC'd Last 24 Hrs Cefazolin Sodium (Cefazolin Sodium) 2 GM Q8H IV Sodium Chloride (NORMAL SALINE 10ML VIAL) 10 ML Docusate Sodium (COLACE 100MG CAPSULE) 100 MG BID PO Bisacodyl (DULCOLAX) 10 MG DAILY PRN PO Bisacodyl (DULCOLAX 10MG SUPPOSITORY) 10 MG DAILY PRN RECTAL Magnesium Hydroxide (MILK OF MAGNESIA) 30 ML Q12H PRN PRN PO Sodium Biphosphate/Sodium Phosphate (FLEET ENEMA) 1 BOT DAILY PRN PRN RECTAL (CKD) Tramadol HCl (ULTRAM 50MG TABLET) 50 MG Q6H PRN PRN PO Insulin Glargine (Lantus/Semglee) 15 UNIT Q12HR SUBQ Acetaminophen (TYLENOL 325MG TABLET) 650 MG Q4H PRN PRN PO Insulin Human Lispro (HumaLOG) 5 UNIT TID MEALS SUBQ Gabapentin (NEURONTIN 100MG CAPSULE) 100 MG TID PO Insulin Human Lispro (HumaLOG) AGGRESSIVE SLIDING SCALE (steroids, infection, resistant) AC HS 0200 SUBQ Dextrose (GLUCOSE) 16 GM ASDIR PRN PO Dextrose/Water (DEXTROSE 50% 50ML SYRINGE) 12.5 GM ASDIR PRN IV Ondansetron HCl (ZOFRAN 4 MG/2 ML) 4 MG Q4H PRN PRN IV Sodium Chloride (NORMAL SALINE 250ML IV BAG) 250 ML ASDIR PRN IV Physical Exam General appearance: alert, awake, oriented Head/Eyes: atraumatic, normocephalic ENT: moist mucosal membranes, normal dentition Neck: full range of motion, no JVD Cardiovascular: normal capillary refill, normal heart sounds, regular rate rhythm, no heave Respiratory: aerating well, clear to auscultation, symmetric expansion, no distress Abdomen: non-tender, soft, no distention Genitourinary: no flank pain, no urinary catheter Extremities: decreased range of motion, moves all Musculoskeletal: decreased ROM, no CVA tenderness Neuro/GATE SUPERVISOR: alert, oriented X 3, normal speech, no motor deficits Skin: dry, normal temperature Ulcer: Type/cause: Dressing over right foot Results Findings/Data: Laboratory Tests 04/06 04/06 04/07 04/07 04/07 1632011 0107 16 1058 Chemistry POC Glucose (65 - 99 MG/DL) 160 H 104 H 84 109 H 191 H Diagnosis, Assessment Plan Consultants: critical/draw bench operator helper Free Text DxA P Notes Free text DxA P notes: Assessment and plan Right Foot Cellulitis and Abductor Longus Abscess -Rt foot XR Mild soft tissue swelling -CT RLE 2.3 x 0.8 x 0.8 cm abscess within the proximal abductor hallucis muscle in keeping with an abscess. Edema and phlegmon is seen within the adductor hallucis muscle without abscess. No evidence of osteomyelitis. -Patient currently on Ancef -Textile Machinery Instructor consulted, Dr. Mott. -s/p complex I D right foot abscess 03/21/24. Follow up culture. -ID consulted and recommends Ancef 6 g load continuous infusion via PICC with stop date 04/26/2024. Sepsis (POA) 2/2 above -Patient had episode of hypotension 03/21/24 evening after taking [place]. Received albumin 12.5 g IV and midodrine 5 mg PO once. Has dizziness, diaphoresis with hypotension to 86/49 while working with PT 03/22/24. -s/p NS 75 ml/hr x I -Monitor hemodynamic -BP is currently stable. Started tramadol and patient seems to tolerate. 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 KCl 20 mEq PO. -Monitor potassium daily and replace as indicated HTN -Patient currently normotensive on no medication Chronic anemia -Hemoglobin trending slowly downward, will monitor CBC daily. -Iron study compatible with AOCD. Normal vitamin B12 and folate. Moderate malnutrition -Hypoalbuminemia -Nutrition consulted. On supplements. Diet: 1999 ADA with Glucen MILLER Discussed with patient about goals of care. Explained in detail about the various categories of CODE STATUS. Answered all questions. Wishes are to proceed with FULL CODE STATUS. Advanced care planning performed for more than 16 minutes. Long conversation with patient and patient family at bedside regarding hospital course and plan. All questions answered. High complexity medical decision making Total care time spent was 68 minutes Disposition: Case management consulted for home IV ABx and home wound care. PT evaluated the patient and recommended IRF due to limited ambulation. Case management consulted for IRF. Patient was declined for Inpatient rehab, f/u protective services case worker for SNF at 1348 RPT #:[id number] END OF [id number] 11:37:00 [facility] ([facility]) Infectious Dis. Progress Note REPORT#:[id number] REPORT STATUS: Signed REPORT INITIALIZATION DATE:04/07/24 TIME: 1136 PATIENT: TSERING BRAUN UNIT #: [id number] ROOM/BED: [place] [address] : 71 AGE: 54 SEX: F ATTEND: Garrett Rhodes DO ADM AUTHOR: Danica Granger APRN DNP TRIM MACHINE OPERATOR REPT SERVICE DT/TIME: 04/07/24 1137 * ALL edits or amendments must be made on the electronic/computer document * Subjective HPI: Reason for consultation foot abscess and cellulitis. History of present illness Patient is 54-year-old female present to the hospital complains of pain redness swelling of her right foot with evidence of possible abscess. She did not recall how it started. Patient has foot neuropathy. Temperature was 104. Patient is on currently BKA admitted to the ICU with insulin drip. CT of the right lower extremity revealed 2.3 x 0.8 4.8 cm abscess. Patient is currently on vancomycin and Zosyn. Podiatry consult is currently pending I believe. Review of systems; : patient does not report any headaches or visual disturbances. Rest of the 10 systems are normal or as above. Reviewed all the labs CBC CMP all imaging studies and it systems analyst consultant notes and primary care physician notes. Objective General VS/I O: Vital Signs Date Temp Pulse Resp B/P B/P Mean Pulse Ox FiO2 04/06-04/07 97.9-98.4 81-91 12-18 109-157/66-97 80.7-117.3 97-100 Last Documented: Result Date Time Pulse Ox 97 04/07 746 B/P 156/81 04/07 746 B/P Mean 106.3 04/07 746 Temp 98.4 04/07 746 Pulse 88 04/07 746 Resp 12 04/07 746 O2 Delivery Room air 04/07 032 Vital Signs: Date Time Temp Pulse Resp B/P B/P Pulse O2 O2 Flow FiO2 Mean Ox Delivery Rate 04/07 746 98.4 88 12 156/81 106.3 97 04/07 0328 98.4 82 18 157/97 117.3 99 Room air 04/06 2354 98.2 81 18 110/66 80.7 97 Room air 04/06 2013 98.1 91 17 109/70 83.1 98 Room air 04/06 1804 98.2 89 14 134/83 100.0 100 04/06 1219 97.9 88 14 133/82 99.1 100 24 hour I O ending at 0700: 04/07 0700 04/06 1900 Intake Total Output Total Balance Number Voids 3 PATIENT WEIGHT: Weight (lb): 149 Weight (oz): 4.05 Weight (kg): 67.585 Physical Exam Wound/incision: Location: R foot Site condition: dressing clean dry, dressing intact Cardiovascular: normal heart sounds Respiratory: aerating well, symmetric expansion, no distress Abdomen: non-tender, soft Genitourinary: no urinary catheter Extremities: moves all Neuro/GATE SUPERVISOR: alert, oriented X 3 Skin: no rash Ulcer: Type/cause: Dressing over right foot Psychiatry: normal affect, normal judgment/insight, normal mood Results Findings/Data: Laboratory Tests 04/07 04/07 04/07 04/06 04/06 1053 0627 104 2011 1636 Chemistry POC Glucose (65 - 99 MG/DL) 191 H 109 H 84 104 H 160 H Diagnosis, Assessment Plan Free Text A P: Assessment Patient is 54-year-old female present to the hospital complains of pain redness swelling of her right foot with evidence of possible abscess. She did not recall how it started. Patient has foot neuropathy. Temperature was 104. Patient is on currently BKA admitted to the ICU with insulin drip. CT of the right lower extremity revealed 2.3 x 0.8 4.8 cm abscess. Patient is currently on vancomycin and Zosyn. Podiatry consult is currently pending I believe. Plan At this time continue with IV vancomycin and Zosyn. Podiatry consultation for possible abscess drainage. Will follow and make further recommendations based on culture results. Thank you for the consultation. 03/14/24 transferred to [facility] floor 03/13 febrile Tmax 103.1; will continue to follow temperature curve with leukocytosis of 16k; will follow on room air; no acute distress noted reports she believes blister ruptured; dressing to R foot c,d,i - wound care notified reports pain to R foot controlled at this time blood cultures 03/12 negative so far; will follow urine cultures 03/13 Staph aureus will change antibiotic to IV Cefazolin monitor for antibiotic related adverse effects pending transfer to [facility] for podiatry evaluation will continue to follow clinically Recommendations per Dr Burks 03/17 -pending I D of abscess on 03/19 blood cultures 03/12 NGTD urine cultures 03/13 Staph aureus Cont. on IV Cefazolin monitor for antibiotic related adverse effects pending podiatry evaluation will continue to follow clinically Reviewed with Dr Burks 03/18/24 Patient remains afebrile, WBC 11 K Patient reports 1 loose bowel movement this morning, will follow blood cultures 03/12 NGTD urine cultures 03/13 Staph aureus Cont. on IV Cefazolin monitor for antibiotic related adverse effects Pending I D of abscess tomorrow; please send cultures Reviewed with Dr Burks 03/19/24 Patient remains afebrile, WBC 11 K Patient denies diarrhea blood cultures 03/12 no growth final urine cultures 03/13 Staph aureus Cont. on IV Cefazolin monitor for antibiotic related adverse effects Pending I D of abscess today please send cultures Reviewed with Dr Burks 03/20/24 Tmax 100.6. WBC 9K Will have nursing staff remove oldest IV Pending right foot I D scheduled for tomorrow Patient is currently on Ancef Reviewed with Dr. Burks 03/21/24 No further fevers, WBC 10K Pending right foot I D today Patient is currently on Ancef Reviewed with Dr. Burks 03/24 Patient status post 03/21/2024 complex I D right foot abscess, * cultures growing staph aureus Patient is currently on Ancef Recommend Ancef 6 g load continuous infusion via PICC with stop date 04/26/2024. Case management orders placed Recommendations from Dr. Burks 03/26/24 Patient has been afebrile, WBC 8K Patient is currently on Ancef Recommend Ancef 6 g load continuous infusion via PICC with stop date 04/26/2024. PICC line in place Pending discharge arrangements Reviewed with Dr. Burks 03/31 Cont. on Ancef Recommend Ancef 6 g load continuous infusion via PICC with stop date 04/26/2024 Pending discharge arrangements Reviewed with Dr. Burks 04/01/24 Patient remains afebrile Patient up in bedside chair. Patient denies any new complaints or concerns at today's visit Patient continues on Ancef Recommend Ancef 6 g continuous infusion via PICC with stop date 04/26/2024 Pending discharge arrangements Reviewed with Dr. Burks 04/02/24 Patient remains afebrile, WBC 5K Patient is currently on Ancef Recommend Ancef 6 g continuous infusion via PICC with stop date 04/26/2024 Pending discharge arrangements; possibly [place] Reviewed with Dr. Burks 04/04/24 Patient remains afebrile Family at bedside Patient is currently on Ancef; tolerating Recommend Ancef 6 g continuous infusion via PICC with stop date 04/26/2024 Pending discharge arrangements Reviewed with Dr. Burks 04/07 Patient remains afebrile, tolerating abx Recommend to continue on Ancef 6 g continuous infusion via PICC with stop date Pending discharge arrangements Reviewed with Dr. Burks at 1138 at 0114 RPT #:[id number] END OF [id number] 16:37:00 [facility] ([facility]) Critical Care Progress Note REPORT#:[id number] REPORT STATUS: Signed REPORT INITIALIZATION DATE:04/06/24 TIME: 1637 PATIENT: TSERING BRAUN UNIT #: [id number] ROOM/BED: D.D331-1 : 72 AGE: 54 SEX: F ATTEND: Garrett Rhodes DO ADM AUTHOR: Jordan Lee MD REPT SERVICE DT/TIME: 04/06/24 1637 * ALL edits or amendments must be made on the electronic/computer document * Subjective Chief complaint: right foot pain Review of Systems Free Text ROS Notes Free Text ROS Notes: 14 point ROS completed and negative unless noted otherwise Objective General VS/I O Last Documented: Result Date Time Pulse Ox 100 04/06 1219 B/P 133/82 04/06 1219 B/P Mean 99.1 04/06 1219 Temp 97.9 04/06 1219 Pulse 88 04/06 1219 Resp 14 04/06 121 O2 Delivery Room air 04/06 0328 24 hour I O ending at 0700: 04/06 0700 04/05 1900 Intake Total 650 Output Total Balance 650 Intake, Oral 650 Number Voids 3 PATIENT WEIGHT: Weight (lb): 149 Weight (oz): 4.05 Weight (kg): 67.585 Medications: Active Meds + DC'd Last 24 Hrs Cefazolin Sodium (Cefazolin Sodium) 2 GM Q8H IV Sodium Chloride (NORMAL SALINE 10ML VIAL) 10 ML Docusate Sodium (COLACE 100MG CAPSULE) 100 MG BID PO Bisacodyl (DULCOLAX) 10 MG DAILY PRN PO Bisacodyl (DULCOLAX 10MG SUPPOSITORY) 10 MG DAILY PRN RECTAL Magnesium Hydroxide (MILK OF MAGNESIA) 30 ML Q12H PRN PRN PO Sodium Biphosphate/Sodium Phosphate (FLEET ENEMA) 1 BOT DAILY PRN PRN RECTAL (CKD) Tramadol HCl (ULTRAM 50MG TABLET) 50 MG Q6H PRN PRN PO Insulin Glargine (Lantus/Semglee) 15 UNIT Q12HR SUBQ Acetaminophen (TYLENOL 325MG TABLET) 650 MG Q4H PRN PRN PO Insulin Human Lispro (HumaLOG) 5 UNIT TID MEALS SUBQ Gabapentin (NEURONTIN 100MG CAPSULE) 100 MG TID PO Insulin Human Lispro (HumaLOG) AGGRESSIVE SLIDING SCALE (steroids, infection, resistant) AC HS 0200 SUBQ Dextrose (GLUCOSE) 16 GM ASDIR PRN PO Dextrose/Water (DEXTROSE 50% 50ML SYRINGE) 12.5 GM ASDIR PRN IV Ondansetron HCl (ZOFRAN 4 MG/2 ML) 4 MG Q4H PRN PRN IV Sodium Chloride (NORMAL SALINE 250ML IV BAG) 250 ML ASDIR PRN IV Physical Exam Head/eyes: atraumatic, clear cornea, PERRLA ENT: dry mucosal membrane, poor dentition Neck: full range of motion, non-tender, no JVD, no masses or swelling Cardiovascular: normal capillary refill, normal heart sounds, regular rate and rhythm, normal S1/S2, no ectopy Respiratory: aerating well, clear to auscultation, symmetric expansion, no distress Abdomen: soft, non-tender Genitourinary: no bladder distention, no flank pain, no urinary catheter Extremities: edema (to RLE), moves all, normal capillary refill, normal range of motion, no calf tenderness, no clubbing, no cyanosis Musculoskeletal normal inspection, painless range of motion Neuro/GATE SUPERVISOR: alert, oriented X 3, normal speech, reflexes equal bilat, no motor deficits, no sensory deficits Skin: abscess (to right foot), dry, intact, normal color, normal temperature, no rash Ulcer: Type/cause: Dressing over right foot Wound/incision: Location: right foot blister Site condition: no drainage Psychiatry: normal affect, normal judgment/insight, normal mood, not homicidal, not suicidal, no hallucinations Results Findings/data: Laboratory Tests 04/06 04/06 04/06 04/06 04/05 1637 1100 0525 0209 2003 Chemistry POC Glucose (65 - 99 MG/DL) 160 H 188 H 124 H 194 H 135 H 04/05 1702 Chemistry POC Glucose (65 - 99 MG/DL) 152 H Diagnosis, Assessment Plan Free text A P: A/p Acute renal failure Diabetic ketoacidosis Severe sepsis Right foot abscess Normocytic anemia Hypokalemia Plan Patient's mentation appears to be at baseline, no acute neuroconcerns She is saturating well on room air Hemodynamically stable, will continue to monitor closely Monitor renal function closely Strict I's and O's Avoid nephrotoxic medications Glucose control with insulin Continue with antibiotics as per ID; On ancef, PICC line in place ID is following Tolerating a diet DVT prophylaxis GI prophylaxis CODE STATUS to full code Medical decision making: High complexity Rest of the management per primary Consultants: critical/draw bench operator helper at 1653 RPT #:[id number] END OF [id number] 13:16:00 [facility] ([facility]) Hospitalist Progress Note REPORT#:[id number] REPORT STATUS: Signed REPORT INITIALIZATION DATE:04/06/24 TIME: 1315 PATIENT: TSERING BRAUN UNIT #: [id number] ROOM/BED: D331-1 : 71 AGE: 54 SEX: F ATTEND: Garrett Rhodes DO ADM AUTHOR: Garrett Rhodes DO REPT SERVICE DT/TIME: 04/06/24 1316 * ALL edits or amendments must be made on the electronic/computer document * Subjective Chief complaint: Right foot pain HPI: 03/14/24 Patient seen today at bedside. No acute overnight events. Patient reports continued right foot pain. Denies fever, chills, chest pain, abdominal pain or dysuria. Review of Systems Free Text ROS Notes Free Text ROS Notes: Negative except for pertinent positives noted in HPI. Objective General VS/I O: Vital Signs: Date Time Temp Pulse Resp B/P B/P Pulse O2 O2 Flow FiO2 Mean Ox Delivery Rate 04/06 1219 97.9 88 14 133/82 99.1 100 04/06 0751 98.4 97 12 104/69 80.8 97 04/06 0328 98.2 82 17 115/75 88.4 98 Room air 04/05 2355 98.4 80 17 126/77 93.2 96 Room air 04/05 2008 98.6 92 17 98/61 73.7 99 Room air 04/05 1704 98.1 87 14 124/77 92.7 100 24 hour I O ending at 0700: 04/05 1900 04/06 0700 Intake Total 650 Output Total Balance 650 Intake, Oral 650 Number Voids 3 PATIENT WEIGHT: Weight (lb): 149 Weight (oz): 4.05 Weight (kg): 67.585 Medications: Active Meds + DC'd Last 24 Hrs Cefazolin Sodium (Cefazolin Sodium) 2 GM Q8H IV Sodium Chloride (NORMAL SALINE 10ML VIAL) 10 ML Docusate Sodium (COLACE 100MG CAPSULE) 100 MG BID PO Bisacodyl (DULCOLAX) 10 MG DAILY PRN PO Bisacodyl (DULCOLAX 10MG SUPPOSITORY) 10 MG DAILY PRN RECTAL Magnesium Hydroxide (MILK OF MAGNESIA) 30 ML Q12H PRN PRN PO Sodium Biphosphate/Sodium Phosphate (FLEET ENEMA) 1 BOT DAILY PRN PRN RECTAL (CKD) Tramadol HCl (ULTRAM 50MG TABLET) 50 MG Q6H PRN PRN PO Insulin Glargine (Lantus/Semglee) 15 UNIT Q12HR SUBQ Acetaminophen (TYLENOL 325MG TABLET) 650 MG Q4H PRN PRN PO Insulin Human Lispro (HumaLOG) 5 UNIT TID MEALS SUBQ Gabapentin (NEURONTIN 100MG CAPSULE) 100 MG TID PO Insulin Human Lispro (HumaLOG) AGGRESSIVE SLIDING SCALE (steroids, infection, resistant) AC HS 0200 SUBQ Dextrose (GLUCOSE) 16 GM ASDIR PRN PO Dextrose/Water (DEXTROSE 50% 50ML SYRINGE) 12.5 GM ASDIR PRN IV Ondansetron HCl (ZOFRAN 4 MG/2 ML) 4 MG Q4H PRN PRN IV Sodium Chloride (NORMAL SALINE 250ML IV BAG) 250 ML ASDIR PRN IV Physical Exam General appearance: alert, awake, oriented Head/Eyes: atraumatic, normocephalic ENT: moist mucosal membranes, normal dentition Neck: full range of motion, no JVD Cardiovascular: normal capillary refill, normal heart sounds, regular rate rhythm, no heave Respiratory: aerating well, clear to auscultation, symmetric expansion, no distress Abdomen: non-tender, soft, no distention Genitourinary: no flank pain, no urinary catheter Extremities: decreased range of motion, moves all Musculoskeletal: decreased ROM, no CVA tenderness Neuro/GATE SUPERVISOR: alert, oriented X 3, normal speech, no motor deficits Skin: dry, normal temperature Ulcer: Type/cause: Dressing over right foot Results Findings/Data: Laboratory Tests 04/05 04/05 04/06 04/06 04/06 1702 2004 0209 0525 1100 Chemistry POC Glucose (65 - 99 MG/DL) 152 H 135 H 194 H 124 H 188 H Diagnosis, Assessment Plan Consultants: critical/draw bench operator helper Free Text DxA P Notes Free text DxA P notes: Assessment and plan Right Foot Cellulitis and Abductor Longus Abscess -Rt foot XR Mild soft tissue swelling -CT RLE 2.3 x 0.8 x 0.8 cm abscess within the proximal abductor hallucis muscle in keeping with an abscess. Edema and phlegmon is seen within the adductor hallucis muscle without abscess. No evidence of osteomyelitis. -Patient currently on Ancef -Textile Machinery Instructor consulted, Dr. Mott. -s/p complex I D right foot abscess 03/21/24. Follow up culture. -ID consulted and recommends Ancef 6 g load continuous infusion via PICC with stop date 04/26/2024. Sepsis (POA) 2/2 above -Patient had episode of hypotension 03/21/24 evening after taking [place]. Received albumin 12.5 g IV and midodrine 5 mg PO once. Has dizziness, diaphoresis with hypotension to 86/49 while working with PT 03/22/24. -s/p NS 75 ml/hr x I -Monitor hemodynamic -BP is currently stable. Started tramadol and patient seems to tolerate. 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 KCl 20 mEq PO. -Monitor potassium daily and replace as indicated HTN -Patient currently normotensive on no medication Chronic anemia -Hemoglobin trending slowly downward, will monitor CBC daily. -Iron study compatible with AOCD. Normal vitamin B12 and folate. Moderate malnutrition -Hypoalbuminemia -Nutrition consulted. On supplements. Diet: 1999 ADA with Clarita MILLER Discussed with patient about goals of care. Explained in detail about the various categories of CODE STATUS. Answered all questions. Wishes are to proceed with FULL CODE STATUS. Advanced care planning performed for more than 16 minutes. Long conversation with patient and patient family at bedside regarding hospital course and plan. All questions answered. High complexity medical decision making Total care time spent was 68 minutes Disposition: Case management consulted for home IV ABx and home wound care. PT evaluated the patient and recommended IRF due to limited ambulation. Case management consulted for IRF. Patient was declined for Inpatient rehab, f/u protective services case worker for SNF at 1228 RPT #:[id number] END OF [id number] 07:27:00 [facility] ([facility]) Infectious Dis. Progress Note REPORT#:[id number] REPORT STATUS: Signed REPORT INITIALIZATION DATE:04/06/24 TIME: 726 PATIENT: TSERING BRAUN UNIT #: [id number] ROOM/BED: D331-1 : 71 AGE: 54 SEX: F ATTEND: Garrett Rhodes DO ADM AUTHOR: Danica Granger APRN DNP TRIM MACHINE OPERATOR REPT SERVICE DT/TIME: 04/06/24726 * ALL edits or amendments must be made on the electronic/computer document * Subjective HPI: Reason for consultation foot abscess and cellulitis. History of present illness Patient is 54-year-old female present to the hospital complains of pain redness swelling of her right foot with evidence of possible abscess. She did not recall how it started. Patient has foot neuropathy. Temperature was 104. Patient is on currently BKA admitted to the ICU with insulin drip. CT of the right lower extremity revealed 2.3 x 0.8 4.8 cm abscess. Patient is currently on vancomycin and Zosyn. Podiatry consult is currently pending I believe. Review of systems; : patient does not report any headaches or visual disturbances. Rest of the 10 systems are normal or as above. Reviewed all the labs CBC CMP all imaging studies and it systems analyst consultant notes and primary care physician notes. Objective General VS/I O: Vital Signs Date Temp Pulse Resp B/P B/P Mean Pulse Ox FiO2 04/05-04/06 98.1-98.6 80-92 12-17 98-150/61-86 73.7-107.2 96-100 Last Documented: Result Date Time Pulse Ox 98 04/06 0328 B/P 115/75 04/06 0328 B/P Mean 88.4 04/06 0328 O2 Delivery Room air 04/06 328 Temp 98.2 04/06 0328 Pulse 82 07/06 0328 Resp 17 04/06 328 Vital Signs: Date Time Temp Pulse Resp B/P B/P Pulse O2 O2 Flow FiO2 Mean Ox Delivery Rate 04/06 328 98.2 82 17 115/75 88.4 98 Room air 04/05 2355 98.4 80 17 126/77 93.2 96 Room air 04/05 2008 98.6 92 17 98/61 73.7 99 Room air 04/05 1704 98.1 87 14 124/77 92.7 100 04/05 1259 98.1 87 12 150/86 107.2 100 04/05 0820 98.2 88 14 138/81 100.1 99 24 hour I O ending at 0700: 04/06 0700 04/05 1900 Intake Total 650 Output Total Balance 650 Intake, Oral 650 Number Voids 3 PATIENT WEIGHT: Weight (lb): 149 Weight (oz): 4.05 Weight (kg): 67.585 Physical Exam Wound/incision: Location: R foot Site condition: dressing clean dry, dressing intact Cardiovascular: normal heart sounds Respiratory: aerating well, symmetric expansion, no distress Abdomen: non-tender, soft Genitourinary: no urinary catheter Extremities: moves all Neuro/GATE SUPERVISOR: alert, oriented X 3 Skin: no rash Ulcer: Type/cause: Dressing over right foot Psychiatry: normal affect, normal judgment/insight, normal mood Results Findings/Data: Laboratory Tests 04/062 1217 Chemistry POC Glucose (65 - 99 MG/DL) 124 H 194 H 135 H 152 H 179 H 04/05 1045 Chemistry POC Glucose (65 - 99 MG/DL) 215 H Diagnosis, Assessment Plan Free Text A P: Assessment Patient is 54-year-old female present to the hospital complains of pain redness swelling of her right foot with evidence of possible abscess. She did not recall how it started. Patient has foot neuropathy. Temperature was 104. Patient is on currently BKA admitted to the ICU with insulin drip. CT of the right lower extremity revealed 2.3 x 0.8 4.8 cm abscess. Patient is currently on vancomycin and Zosyn. Podiatry consult is currently pending I believe. Plan At this time continue with IV vancomycin and Zosyn. Podiatry consultation for possible abscess drainage. Will follow and make further recommendations based on culture results. Thank you for the consultation. 03/14/24 transferred to [facility] floor 03/13 febrile Tmax 103.1; will continue to follow temperature curve with leukocytosis of 16k; will follow on room air; no acute distress noted reports she believes blister ruptured; dressing to R foot c,d,i - wound care notified reports pain to R foot controlled at this time blood cultures 03/12 negative so far; will follow urine cultures 03/13 Staph aureus will change antibiotic to IV Cefazolin monitor for antibiotic related adverse effects pending transfer to [facility] for podiatry evaluation will continue to follow clinically Recommendations per Dr Burks 03/17 -pending I D of abscess on 03/19 blood cultures 03/12 NGTD urine cultures 03/13 Staph aureus Cont. on IV Cefazolin monitor for antibiotic related adverse effects pending podiatry evaluation will continue to follow clinically Reviewed with Dr Burks 03/18/24 Patient remains afebrile, WBC 11 K Patient reports 1 loose bowel movement this morning, will follow blood cultures 03/12 NGTD urine cultures 03/13 Staph aureus Cont. on IV Cefazolin monitor for antibiotic related adverse effects Pending I D of abscess tomorrow; please send cultures Reviewed with Dr Burks 03/19/24 Patient remains afebrile, WBC 11 K Patient denies diarrhea blood cultures 03/12 no growth final urine cultures 03/13 Staph aureus Cont. on IV Cefazolin monitor for antibiotic related adverse effects Pending I D of abscess today please send cultures Reviewed with Dr Burks 03/20/24 Tmax 100.6. WBC 9K Will have nursing staff remove oldest IV Pending right foot I D scheduled for tomorrow Patient is currently on Ancef Reviewed with Dr. Burks 03/21/24 No further fevers, WBC 10K Pending right foot I D today Patient is currently on Ancef Reviewed with Dr. Burks 03/24 Patient status post 03/21/2024 complex I D right foot abscess, * cultures growing staph aureus Patient is currently on Ancef Recommend Ancef 6 g load continuous infusion via PICC with stop date 04/26/2024. Case management orders placed Recommendations from Dr. Burks 03/26/24 Patient has been afebrile, WBC 8K Patient is currently on Ancef Recommend Ancef 6 g load continuous infusion via PICC with stop date 04/26/2024. PICC line in place Pending discharge arrangements Reviewed with Dr. Burks 03/31 Cont. on Ancef Recommend Ancef 6 g load continuous infusion via PICC with stop date 04/26/2024 Pending discharge arrangements Reviewed with Dr. Burks 04/01/24 Patient remains afebrile Patient up in bedside chair. Patient denies any new complaints or concerns at today's visit Patient continues on Ancef Recommend Ancef 6 g continuous infusion via PICC with stop date 04/26/2024 Pending discharge arrangements Reviewed with Dr. Burks 04/02/24 Patient remains afebrile, WBC 5K Patient is currently on Ancef Recommend Ancef 6 g continuous infusion via PICC with stop date 04/26/2024 Pending discharge arrangements; possibly [place] Reviewed with Dr. Burks 04/04/24 Patient remains afebrile Family at bedside Patient is currently on Ancef; tolerating Recommend Ancef 6 g continuous infusion via PICC with stop date 04/26/2024 Pending discharge arrangements Reviewed with Dr. Burks 04/06 Patient remains afebrile, Recommend to continue on Ancef 6 g continuous infusion via PICC with stop date Pending discharge arrangements Reviewed with Dr. Burks at 0727 at 0114 RPT #:[id number] END OF [id number] 14:16:00 [facility] ([facility]) Infectious Dis. Progress Note REPORT#:[id number] REPORT STATUS: Signed REPORT INITIALIZATION DATE:04/05/24 TIME: 1415 PATIENT: TSERING BRAUN UNIT #: [id number] ROOM/BED: [place] [id number] : 71 AGE: 54 SEX: F ATTEND: Garrett Rhodes DO ADM AUTHOR: Karey Granger APRNNP REPT SERVICE DT/TIME: 04/05/24 1416 * ALL edits or amendments must be made on the electronic/computer document * Subjective HPI: Reason for consultation foot abscess and cellulitis. History of present illness Patient is 54-year-old female present to the hospital complains of pain redness swelling of her right foot with evidence of possible abscess. She did not recall how it started. Patient has foot neuropathy. Temperature was 104. Patient is on currently BKA admitted to the ICU with insulin drip. CT of the right lower extremity revealed 2.3 x 0.8 4.8 cm abscess. Patient is currently on vancomycin and Zosyn. Podiatry consult is currently pending I believe. Review of systems; : patient does not report any headaches or visual disturbances. Rest of the 10 systems are normal or as above. Reviewed all the labs CBC CMP all imaging studies and it systems analyst consultant notes and primary care physician notes. Objective General VS/I O: Vital Signs Date Temp Pulse Resp B/P B/P Mean Pulse Ox FiO2 /-04/05 97.9-98.6 82-92 12-16 115-154/72-87 87.2-109.4 96-100 Last Documented: Result Date Time Pulse Ox 100 / 1259 B/P 150/86 07/ 1259 B/P Mean 107.2 / 1259 Temp 98.1 07/ 1259 Pulse 87 07/ 1259 Resp 12 / 1259 O2 Delivery Room air 04/05 0356 Vital Signs: Date Time Temp Pulse Resp B/P B/P Pulse O2 O2 Flow FiO2 Mean Ox Delivery Rate / 1259 98.1 87 12 150/86 107.2 100 /05 0820 98.2 88 14 138/81 100.1 99 07/05 0356 97.9 82 14 119/77 91.5 96 Room air 07/04 2344 98.6 92 15 115/74 87.2 98 Room air 07/ 1949 98.6 90 16 122/72 88.6 100 Room air 07/ 1548 98.2 90 14 154/87 109.4 99 Room air 24 hour I O ending at 0700: 04/05 0700 04/04 1900 Intake Total Output Total Balance Number 1 Bowel Movements Number Voids 4 PATIENT WEIGHT: Weight (lb): 149 Weight (oz): 4.05 Weight (kg): 67.585 Physical Exam General appearance: alert, awake, oriented Wound/incision: Location: R foot Site condition: dressing clean dry, dressing intact Cardiovascular: normal heart sounds Respiratory: aerating well, symmetric expansion, no distress Abdomen: non-tender, soft Genitourinary: no urinary catheter Extremities: moves all Neuro/GATE SUPERVISOR: alert, oriented X 3 Skin: no rash Ulcer: Type/cause: Dressing over right foot Psychiatry: normal affect, normal judgment/insight, normal mood Results Findings/Data: Laboratory Tests 04/05 04/05 04/05 04/05 04/05 1217 1045 0546 0222 0124 Chemistry Sodium (133 - 145 MMOL/L) 138 Potassium (3.6 - 5.2 MMOL/L) 3.8 Chloride (100 - 108 MMOL/L) 104 Carbon Dioxide (22 - 32 MMOL/L) 33 H BUN (6 - 20 MG/DL) 21 H Creatinine (0.60 - 1.00 MG/DL) 0.58 L Estimated GFR (MDRD) (51 - 120) 108 Glucose (65 - 99 MG/DL) 147 H POC Glucose (65 - 99 MG/DL) 179 H 215 H 162 H 123 H Calcium (8.7 - 10.5 MG/DL) 9.0 Magnesium (1.8 - 2.4 MG/DL) 2.0 Total Bilirubin (0.0 - 1.0 MG/DL) 0.2 AST (15 - 37 Units/L) 16 ALT (30 - 65 Units/L) 15 L Alkaline Phosphatase (50 - 136 91 Units/L) Total Protein (6.4 - 8.2 G/DL) 7.0 Albumin (3.4 - 5.0 G/DL) 2.2 L Globulin (1.5 - 3.8 G/DL) 4.8 H Albumin/Globulin Ratio (1.1 - 2.2) 0.5 L 04/04 04/04 04/04 2142 1547 1442 Chemistry POC Glucose (65 - 99 MG/DL) 237 H 141 H 105 H Laboratory Tests 04/05 022 Hematology WBC (4.80 - 10.80 x10 3/uL) 5.34 RBC (4.2 - 5.4 x10 6/uL) 3.28 L Hgb (12.0 - 16.0 G/DL) 9.0 L Hct (37 - 47 %) 29.7 L MCV (81 - 99 FL) 90.5 MCH (27 - 31 PG) 27.4 MCHC (33 - 37 G/DL) 30.3 L RDW Coeff of [place] (11.5 - 14.5 %) 13.2 Plt Count (150 - 450 x10 3/uL) 248 MPV (7.4 - 10.4 FL) 8.8 Neut % (Auto) (42 - 86 %) 55.2 Lymph % (Auto) (24 - 44 %) 30.1 [place] % (Auto) (0.0 - 4.0 %) 9.4 H Eos % (Auto) (0.0 - 2.7 %) 4.5 H Baso % (Auto) (0.0 - 0.5 %) 0.4 Eos # (Auto) (0.0 - 0.5 x10 3/uL) 0.24 Baso # (Auto) (0.0 - 0.2 x10 3/uL) 0.02 Abs Immat Gran (auto) (0.00 - 0.03 x10 3/uL) 0.02 Absolute Neuts (auto) (1.8 - 7.7 x10 3/uL) 2.95 Absolute Lymphs (auto) (1.0 - 4.8 x10 3/uL) 1.61 Absolute Monos (auto) (0.0 - 0.8 x10 3/uL) 0.50 Absolute Nucleated RBC (0.0 - 0.2 X10 3/uL) 0.0 Immature Gran % (0.0 - 2.0 %) 0.4 Nucleated RBC % (0.0 - 0.0 %) 0.0 Diagnosis, Assessment Plan Free Text A P: Assessment Patient is 54-year-old female present to the hospital complains of pain redness swelling of her right foot with evidence of possible abscess. She did not recall how it started. Patient has foot neuropathy. Temperature was 104. Patient is on currently BKA admitted to the ICU with insulin drip. CT of the right lower extremity revealed 2.3 x 0.8 4.8 cm abscess. Patient is currently on vancomycin and Zosyn. Podiatry consult is currently pending I believe. Plan At this time continue with IV vancomycin and Zosyn. Podiatry consultation for possible abscess drainage. Will follow and make further recommendations based on culture results. Thank you for the consultation. 03/14/24 transferred to [facility] floor 03/13 febrile Tmax 103.1; will continue to follow temperature curve with leukocytosis of 16k; will follow on room air; no acute distress noted reports she believes blister ruptured; dressing to R foot c,d,i - wound care notified reports pain to R foot controlled at this time blood cultures 03/12 negative so far; will follow urine cultures 03/13 Staph aureus will change antibiotic to IV Cefazolin monitor for antibiotic related adverse effects pending transfer to [facility] for podiatry evaluation will continue to follow clinically Recommendations per Dr Burks 03/17 -pending I D of abscess on 03/19 blood cultures 03/12 NGTD urine cultures 03/13 Staph aureus Cont. on IV Cefazolin monitor for antibiotic related adverse effects pending podiatry evaluation will continue to follow clinically Reviewed with Dr Burks 03/18/24 Patient remains afebrile, WBC 11 K Patient reports 1 loose bowel movement this morning, will follow blood cultures 03/12 NGTD urine cultures 03/13 Staph aureus Cont. on IV Cefazolin monitor for antibiotic related adverse effects Pending I D of abscess tomorrow; please send cultures Reviewed with Dr Burks 03/19/24 Patient remains afebrile, WBC 11 K Patient denies diarrhea blood cultures 03/12 no growth final urine cultures 03/13 Staph aureus Cont. on IV Cefazolin monitor for antibiotic related adverse effects Pending I D of abscess today please send cultures Reviewed with Dr Burks 03/20/24 Tmax 100.6. WBC 9K Will have nursing staff remove oldest IV Pending right foot I D scheduled for tomorrow Patient is currently on Ancef Reviewed with Dr. Burks 03/21/24 No further fevers, WBC 10K Pending right foot I D today Patient is currently on Ancef Reviewed with Dr. Burks 03/24 Patient status post 03/21/2024 complex I D right foot abscess, * cultures growing staph aureus Patient is currently on Ancef Recommend Ancef 6 g load continuous infusion via PICC with stop date 04/26/2024. Case management orders placed Recommendations from Dr. Burks 03/26/24 Patient has been afebrile, WBC 8K Patient is currently on Ancef Recommend Ancef 6 g load continuous infusion via PICC with stop date 04/26/2024. PICC line in place Pending discharge arrangements Reviewed with Dr. Burks 03/31 Cont. on Ancef Recommend Ancef 6 g load continuous infusion via PICC with stop date 04/26/2024 Pending discharge arrangements Reviewed with Dr. Burks 04/01/24 Patient remains afebrile Patient up in bedside chair. Patient denies any new complaints or concerns at today's visit Patient continues on Ancef Recommend Ancef 6 g continuous infusion via PICC with stop date 04/26/2024 Pending discharge arrangements Reviewed with Dr. Burks 04/02/24 Patient remains afebrile, WBC 5K Patient is currently on Ancef Recommend Ancef 6 g continuous infusion via PICC with stop date 04/26/2024 Pending discharge arrangements; possibly [place] Reviewed with Dr. Burks 04/04/24 Patient remains afebrile Family at bedside Patient is currently on Ancef; tolerating Recommend Ancef 6 g continuous infusion via PICC with stop date 04/26/2024 Pending discharge arrangements Reviewed with Dr. Burks 04/05/24 Patient remains afebrile, wbc 5k Recommend to continue on Ancef 6 g continuous infusion via PICC with stop date Pending discharge arrangements Reviewed with Dr. Burks Consultants: critical/draw bench operator helper at 1418 at 0113 RPT #:[id number] END OF [id number] 08:59:00 [facility] ([facility]) Hospitalist Progress Note REPORT#:[id number] REPORT STATUS: Signed REPORT INITIALIZATION DATE:04/05/24 TIME: 0859 PATIENT: TSERING BRAUN UNIT #: [id number] ROOM/BED: [place] [address] : 71 AGE: 54 SEX: F ATTEND: Garrett Rhodes DO ADM AUTHOR: Garrett Rhodes DO REPT SERVICE DT/TIME: 04/05/24 0859 * ALL edits or amendments must be made on the electronic/computer document * Subjective Chief complaint: Right foot pain HPI: 03/14/24 Patient seen today at bedside. No acute overnight events. Patient reports continued right foot pain. Denies fever, chills, chest pain, abdominal pain or dysuria. Review of Systems Free Text ROS Notes Free Text ROS Notes: Negative except for pertinent positives noted in HPI. Objective General VS/I O: Vital Signs: Date Time Temp Pulse Resp B/P B/P Pulse O2 O2 Flow FiO2 Mean Ox Delivery Rate 04/05 0820 98.2 88 14 138/81 100.1 99 04/05 0356 97.9 82 14 119/77 91.5 96 Room air 04/04 2344 98.6 92 15 115/74 87.2 98 Room air 04/04 1949 98.6 90 16 122/72 88.6 100 Room air 04/04 1548 98.2 90 14 154/87 109.4 99 Room air 04/04 1357 98.8 95 15 154/82 106.1 100 04/04 1051 97.9 84 14 118/74 89.1 99 Room air 24 hour I O ending at 0700: / 1900 04/05 0700 Intake Total Output Total Balance Number 1 Bowel Movements Number Voids 4 PATIENT WEIGHT: Weight (lb): 149 Weight (oz): 4.05 Weight (kg): 67.585 Medications: Active Meds + DC'd Last 24 Hrs Cefazolin Sodium (Cefazolin Sodium) 2 GM Q8H IV Sodium Chloride (NORMAL SALINE 10ML VIAL) 10 ML Docusate Sodium (COLACE 100MG CAPSULE) 100 MG BID PO Bisacodyl (DULCOLAX) 10 MG DAILY PRN PO Bisacodyl (DULCOLAX 10MG SUPPOSITORY) 10 MG DAILY PRN RECTAL Magnesium Hydroxide (MILK OF MAGNESIA) 30 ML Q12H PRN PRN PO Sodium Biphosphate/Sodium Phosphate (FLEET ENEMA) 1 BOT DAILY PRN PRN RECTAL (CKD) Tramadol HCl (ULTRAM 50MG TABLET) 50 MG Q6H PRN PRN PO Insulin Glargine (Lantus/Semglee) 15 UNIT Q12HR SUBQ Acetaminophen (TYLENOL 325MG TABLET) 650 MG Q4H PRN PRN PO Insulin Human Lispro (HumaLOG) 5 UNIT TID MEALS SUBQ Gabapentin (NEURONTIN 100MG CAPSULE) 100 MG TID PO Insulin Human Lispro (HumaLOG) AGGRESSIVE SLIDING SCALE (steroids, infection, resistant) AC HS 0200 SUBQ Dextrose (GLUCOSE) 16 GM ASDIR PRN PO Dextrose/Water (DEXTROSE 50% 50ML SYRINGE) 12.5 GM ASDIR PRN IV Ondansetron HCl (ZOFRAN 4 MG/2 ML) 4 MG Q4H PRN PRN IV Sodium Chloride (NORMAL SALINE 250ML IV BAG) 250 ML ASDIR PRN IV Physical Exam General appearance: alert, awake, oriented Head/Eyes: atraumatic, normocephalic ENT: moist mucosal membranes, normal dentition Neck: full range of motion, no JVD Cardiovascular: normal capillary refill, normal heart sounds, regular rate rhythm, no heave Respiratory: aerating well, clear to auscultation, symmetric expansion, no distress Abdomen: non-tender, soft, no distention Genitourinary: no flank pain, no urinary catheter Extremities: decreased range of motion, moves all Musculoskeletal: decreased ROM, no CVA tenderness Neuro/GATE SUPERVISOR: alert, oriented X 3, normal speech, no motor deficits Skin: dry, normal temperature Ulcer: Type/cause: Dressing over right foot Results Findings/Data: Laboratory Tests 04/04 04/04 04/04 04/04 04/04 1149 1353 1442 1547 2142 Chemistry POC Glucose (65 - 99 MG/DL) 156 H 83 105 H 141 H 237 H 04/05 04/05 04/05 0124 0222 0546 Chemistry Sodium (133 - 145 MMOL/L) 138 Potassium (3.6 - 5.2 MMOL/L) 3.8 Chloride (100 - 108 MMOL/L) 104 Carbon Dioxide (22 - 32 MMOL/L) 33 H BUN (6 - 20 MG/DL) 21 H Creatinine (0.60 - 1.00 MG/DL) 0.58 L Estimated GFR (MDRD) (51 - 120) 108 Glucose (65 - 99 MG/DL) 147 H POC Glucose (65 - 99 MG/DL) 123 H 162 H Calcium (8.7 - 10.5 MG/DL) 9.0 Magnesium (1.8 - 2.4 MG/DL) 2.0 Total Bilirubin (0.0 - 1.0 MG/DL) 0.2 AST (15 - 37 Units/L) 16 ALT (30 - 65 Units/L) 15 L Alkaline Phosphatase (50 - 136 Units/L) 91 Total Protein (6.4 - 8.2 G/DL) 7.0 Albumin (3.4 - 5.0 G/DL) 2.2 L Globulin (1.5 - 3.8 G/DL) 4.8 H Albumin/Globulin Ratio (1.1 - 2.2) 0.5 L Laboratory Tests 04/05 0222 Hematology WBC (4.80 - 10.80 x10 3/uL) 5.34 RBC (4.2 - 5.4 x10 6/uL) 3.28 L Hgb (12.0 - 16.0 G/DL) 9.0 L Hct (37 - 47 %) 29.7 L MCV (81 - 99 FL) 90.5 MCH (27 - 31 PG) 27.4 MCHC (33 - 37 G/DL) 30.3 L RDW Coeff of [place] (11.5 - 14.5 %) 13.2 Plt Count (150 - 450 x10 3/uL) 248 MPV (7.4 - 10.4 FL) 8.8 Neut % (Auto) (42 - 86 %) 55.2 Lymph % (Auto) (24 - 44 %) 30.1 [place] % (Auto) (0.0 - 4.0 %) 9.4 H Eos % (Auto) (0.0 - 2.7 %) 4.5 H Baso % (Auto) (0.0 - 0.5 %) 0.4 Eos # (Auto) (0.0 - 0.5 x10 3/uL) 0.24 Baso # (Auto) (0.0 - 0.2 x10 3/uL) 0.02 Abs Immat Gran (auto) (0.00 - 0.03 x10 3/uL) 0.02 Absolute Neuts (auto) (1.8 - 7.7 x10 3/uL) 2.95 Absolute Lymphs (auto) (1.0 - 4.8 x10 3/uL) 1.61 Absolute Monos (auto) (0.0 - 0.8 x10 3/uL) 0.50 Absolute Nucleated RBC (0.0 - 0.2 X10 3/uL) 0.0 Immature Gran % (0.0 - 2.0 %) 0.4 Nucleated RBC % (0.0 - 0.0 %) 0.0 Diagnosis, Assessment Plan Consultants: critical/draw bench operator helper Free Text DxA P Notes Free text DxA P notes: Assessment and plan Right Foot Cellulitis and Abductor Longus Abscess -Rt foot XR Mild soft tissue swelling -CT RLE 2.3 x 0.8 x 0.8 cm abscess within the proximal abductor hallucis muscle in keeping with an abscess. Edema and phlegmon is seen within the adductor hallucis muscle without abscess. No evidence of osteomyelitis. -Patient currently on Ancef -Textile Machinery Instructor consulted, Dr. Mott. -s/p complex I D right foot abscess 03/21/24. Follow up culture. -ID consulted and recommends Ancef 6 g load continuous infusion via PICC with stop date 04/26/2024. Sepsis (POA) 2/2 above -Patient had episode of hypotension 03/21/24 evening after taking [place]. Received albumin 12.5 g IV and midodrine 5 mg PO once. Has dizziness, diaphoresis with hypotension to 86/49 while working with PT 03/22/24. -s/p NS 75 ml/hr x I -Monitor hemodynamic -BP is currently stable. Started tramadol and patient seems to tolerate. 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 KCl 20 mEq PO. -Monitor potassium daily and replace as indicated HTN -Patient currently normotensive on no medication Chronic anemia -Hemoglobin trending slowly downward, will monitor CBC daily. -Iron study compatible with AOCD. Normal vitamin B12 and folate. Moderate malnutrition -Hypoalbuminemia -Nutrition consulted. On supplements. Diet: 1999 ADA with Clarita MILLER Discussed with patient about goals of care. Explained in detail about the various categories of CODE STATUS. Answered all questions. Wishes are to proceed with FULL CODE STATUS. Advanced care planning performed for more than 16 minutes. Long conversation with patient and patient family at bedside regarding hospital course and plan. All questions answered. High complexity medical decision making Total care time spent was 68 minutes Disposition: Case management consulted for home IV ABx and home wound care. PT evaluated the patient and recommended IRF due to limited ambulation. Case management consulted for IRF. Patient was declined for Inpatient rehab, f/u protective services case worker for SNF at 1314 RPT #:[id number] END OF [id number] 04:01:00 [facility] ([facility]) Critical Care Progress Note REPORT#:[id number] REPORT STATUS: Signed REPORT INITIALIZATION DATE:04/05/24 TIME: 400 PATIENT: TSERING BRAUN UNIT #: [id number] ROOM/BED: [place] [address] : 71 AGE: 54 SEX: F ATTEND: Garrett Rhodes DO ADM AUTHOR: Jerry Keith MD R4 REPT SERVICE DT/TIME: 04/05/24 040 * ALL edits or amendments must be made on the electronic/computer document * Jerry Keith 04/05/24 0401: Subjective Chief complaint: right foot pain Review of Systems Free Text ROS Notes Free Text ROS Notes: 14 point ROS completed and negative unless noted otherwise Objective General VS/I O Last Documented: Result Date Time Pulse Ox 99 04/10 1703 B/P 150/81 04/10 1703 B/P Mean 104.3 04/10 1703 Temp 36.5 04/10 1703 Pulse 94 04/10 1703 Resp 16 04/10 1703 O2 Delivery Room air 04/09 2313 PATIENT WEIGHT: Weight (lb): 149 Weight (oz): 4.05 Weight (kg): 67.585 Physical Exam General appearance: awake Head/eyes: atraumatic, clear cornea, PERRLA ENT: dry mucosal membrane, poor dentition Neck: full range of motion, non-tender, no JVD, no masses or swelling Cardiovascular: normal capillary refill, normal heart sounds, regular rate and rhythm, normal S1/S2, no ectopy Respiratory: aerating well, clear to auscultation, symmetric expansion, no distress Abdomen: soft, non-tender Genitourinary: no bladder distention, no flank pain, no urinary catheter Extremities: edema (to RLE), moves all, normal capillary refill, normal range of motion, no calf tenderness, no clubbing, no cyanosis Musculoskeletal normal inspection, painless range of motion Neuro/GATE SUPERVISOR: alert, oriented X 3, normal speech, reflexes equal bilat, no motor deficits, no sensory deficits Skin: abscess (to right foot), dry, intact, normal color, normal temperature, no rash Ulcer: Type/cause: Dressing over right foot Wound/incision: Location: right foot blister Site condition: no drainage Psychiatry: normal affect, normal judgment/insight, normal mood, not homicidal, not suicidal, no hallucinations Diagnosis, Assessment Plan Free text A P: A/p Acute renal failure Diabetic ketoacidosis Severe sepsis Right foot abscess Normocytic anemia Hypokalemia Patient's mentation appears to be at baseline, no acute neuroconcerns She is saturating well on room air Hemodynamically stable, will continue to monitor closely Monitor renal function closely Strict I's and O's Avoid nephrotoxic medications AG closed x2 Transitioned to basal bolus regimen Continue with antibiotics as per ID; On ancef, PICC line in place ID is following Tolerating a diet DVT prophylaxis GI prophylaxis CODE STATUS to full code Medical decision making: High complexity Rest of the management per primary Consultants: critical/draw bench operator helper CHAPIN BAR 04/05/24 1454: Diagnosis, Assessment Plan Plan discussed with: patient, consultants, nurse, interdisc care team, pharmacy/ pharmacist, house staff Additional comments: Patient seen and examined at bedside with resident. Chart, laboratory data and imaging studies reviewed and interpreted personally. Events noted. Agree with above note. at 1416 at 1713 RPT #:[id number] END OF [id number] 17:20:00 [facility] ([facility]) Infectious Dis. Progress Note REPORT#:[id number] REPORT STATUS: Signed REPORT INITIALIZATION DATE:04/04/24 TIME: 1720 PATIENT: TSERING BRAUN UNIT #: [id number] ROOM/BED: D331-1 : 71 AGE: 54 SEX: F ATTEND: Garrett Rhodes DO ADM AUTHOR: Karey Granger APRNNNathen REPT SERVICE DT/TIME: 04/04/24 1720 * ALL edits or amendments must be made on the electronic/computer document * Subjective HPI: Reason for consultation foot abscess and cellulitis. History of present illness Patient is 54-year-old female present to the hospital complains of pain redness swelling of her right foot with evidence of possible abscess. She did not recall how it started. Patient has foot neuropathy. Temperature was 104. Patient is on currently BKA admitted to the ICU with insulin drip. CT of the right lower extremity revealed 2.3 x 0.8 4.8 cm abscess. Patient is currently on vancomycin and Zosyn. Podiatry consult is currently pending I believe. Review of systems; : patient does not report any headaches or visual disturbances. Rest of the 10 systems are normal or as above. Reviewed all the labs CBC CMP all imaging studies and it systems analyst consultant notes and primary care physician notes. Objective General VS/I O: Vital Signs Date Temp Pulse Resp B/P B/P Mean Pulse Ox FiO2 07/-04/04 97.7-98.8 81-97 14-16 100-154/65-87 76.9-109.4 95-100 Last Documented: Result Date Time Pulse Ox 99 / 1548 B/P 154/87 / 1548 B/P Mean 109.4 / 1548 O2 Delivery Room air 04/04 1548 Temp 98.2 / 1548 Pulse 90 / 1548 Resp 14 / 1548 Vital Signs: Date Time Temp Pulse Resp B/P B/P Pulse O2 O2 Flow FiO2 Mean Ox Delivery Rate 04/04 1548 98.2 90 14 154/87 109.4 99 Room air 04/04 1357 98.8 95 15 154/82 106.1 100 04/04 1051 97.9 84 14 118/74 89.1 99 Room air 07/04 0724 98.8 81 14 128/85 99.7 98 Room air 04/04 0330 97.7 84 16 130/77 94.9 98 04/03 2353 98.2 84 16 145/85 104.8 98 04/03 2011 98.6 97 16 100/65 76.9 95 24 hour I O ending at 0700: 04/04 0700 04/03 1900 Intake Total 1000 Output Total Balance 1000 Intake, Oral 1000 Number 1 Bowel Movements Number Voids 4 PATIENT WEIGHT: Weight (lb): 149 Weight (oz): 4.05 Weight (kg): 67.585 Physical Exam General appearance: alert, awake, oriented Wound/incision: Location: R foot Site condition: dressing clean dry, dressing intact Cardiovascular: normal heart sounds Respiratory: aerating well, symmetric expansion, no distress Abdomen: non-tender, soft Genitourinary: no urinary catheter Extremities: moves all Neuro/GATE SUPERVISOR: alert, oriented X 3 Skin: no rash Ulcer: Type/cause: Dressing over right foot Psychiatry: normal affect, normal judgment/insight, normal mood Results Findings/Data: Laboratory Tests 04/04 04/04 04/04 04/04 04/04 1547 1442 1353 1149 0516 Chemistry POC Glucose (65 - 99 MG/DL) 141 H 105 H 83 156 H 160 H 04/04 04/03 0132011 Chemistry POC Glucose (65 - 99 MG/DL) 146 H 179 H Diagnosis, Assessment Plan Free Text A P: Assessment Patient is 54-year-old female present to the hospital complains of pain redness swelling of her right foot with evidence of possible abscess. She did not recall how it started. Patient has foot neuropathy. Temperature was 104. Patient is on currently BKA admitted to the ICU with insulin drip. CT of the right lower extremity revealed 2.3 x 0.8 4.8 cm abscess. Patient is currently on vancomycin and Zosyn. Podiatry consult is currently pending I believe. Plan At this time continue with IV vancomycin and Zosyn. Podiatry consultation for possible abscess drainage. Will follow and make further recommendations based on culture results. Thank you for the consultation. 03/14/24 transferred to [facility] floor 03/13 febrile Tmax 103.1; will continue to follow temperature curve with leukocytosis of 16k; will follow on room air; no acute distress noted reports she believes blister ruptured; dressing to R foot c,d,i - wound care notified reports pain to R foot controlled at this time blood cultures 03/12 negative so far; will follow urine cultures 03/13 Staph aureus will change antibiotic to IV Cefazolin monitor for antibiotic related adverse effects pending transfer to [facility] for podiatry evaluation will continue to follow clinically Recommendations per Dr Burks 03/17 -pending I D of abscess on 03/19 blood cultures 03/12 NGTD urine cultures 03/13 Staph aureus Cont. on IV Cefazolin monitor for antibiotic related adverse effects pending podiatry evaluation will continue to follow clinically Reviewed with Dr Burks 03/18/24 Patient remains afebrile, WBC 11 K Patient reports 1 loose bowel movement this morning, will follow blood cultures 03/12 NGTD urine cultures 03/13 Staph aureus Cont. on IV Cefazolin monitor for antibiotic related adverse effects Pending I D of abscess tomorrow; please send cultures Reviewed with Dr Burks 03/19/24 Patient remains afebrile, WBC 11 K Patient denies diarrhea blood cultures 03/12 no growth final urine cultures 03/13 Staph aureus Cont. on IV Cefazolin monitor for antibiotic related adverse effects Pending I D of abscess today please send cultures Reviewed with Dr Burks 03/20/24 Tmax 100.6. WBC 9K Will have nursing staff remove oldest IV Pending right foot I D scheduled for tomorrow Patient is currently on Ancef Reviewed with Dr. Burks 03/21/24 No further fevers, WBC 10K Pending right foot I D today Patient is currently on Ancef Reviewed with Dr. Burks 03/24 Patient status post 03/21/2024 complex I D right foot abscess, * cultures growing staph aureus Patient is currently on Ancef Recommend Ancef 6 g load continuous infusion via PICC with stop date 04/26/2024. Case management orders placed Recommendations from Dr. Burks 03/26/24 Patient has been afebrile, WBC 8K Patient is currently on Ancef Recommend Ancef 6 g load continuous infusion via PICC with stop date 04/26/2024. PICC line in place Pending discharge arrangements Reviewed with Dr. Burks 03/31 Cont. on Ancef Recommend Ancef 6 g load continuous infusion via PICC with stop date 04/26/2024 Pending discharge arrangements Reviewed with Dr. Burks 04/01/24 Patient remains afebrile Patient up in bedside chair. Patient denies any new complaints or concerns at today's visit Patient continues on Ancef Recommend Ancef 6 g continuous infusion via PICC with stop date 04/26/2024 Pending discharge arrangements Reviewed with Dr. Burks 04/02/24 Patient remains afebrile, WBC 5K Patient is currently on Ancef Recommend Ancef 6 g continuous infusion via PICC with stop date 04/26/2024 Pending discharge arrangements; possibly [place] Reviewed with Dr. Burks 04/04/24 Patient remains afebrile Family at bedside Patient is currently on Ancef; tolerating Recommend Ancef 6 g continuous infusion via PICC with stop date 04/26/2024 Pending discharge arrangements Reviewed with Dr. Burks Consultants: critical/draw bench operator helper at 1721 at 0112 RPT #:[id number] END OF [id number] 14:15:00 [facility] ([facility]) Hospitalist Progress Note REPORT#:[id number] REPORT STATUS: Signed REPORT INITIALIZATION DATE:04/04/24 TIME: 1414 PATIENT: TSERING BRAUN UNIT #: [id number] ROOM/BED: D331-1 : 71 AGE: 54 SEX: F ATTEND: Garrett Rhodes DO ADM AUTHOR: Garrett Rhodes DO REPT SERVICE DT/TIME: 04/04/24 141 * ALL edits or amendments must be made on the electronic/computer document * Subjective Chief complaint: Right foot pain HPI: 03/14/24 Patient seen today at bedside. No acute overnight events. Patient reports continued right foot pain. Denies fever, chills, chest pain, abdominal pain or dysuria. Review of Systems Free Text ROS Notes Free Text ROS Notes: Negative except for pertinent positives noted in HPI. Objective General VS/I O: Vital Signs: Date Time Temp Pulse Resp B/P B/P Pulse O2 O2 Flow FiO2 Mean Ox Delivery Rate 04/04 1357 98.8 95 15 154/82 106.1 100 04/04 1051 97.9 84 14 118/74 89.1 99 Room air 04/04 0724 98.8 81 14 128/85 99.7 98 Room air 04/04 0330 97.7 84 16 130/77 94.9 98 04/03 2353 98.2 84 16 145/85 104.8 98 04/03 2011 98.6 97 16 100/65 76.9 95 04/03 1616 98.2 89 16 114/70 84.7 98 24 hour I O ending at 0700: 04/03 1900 04/04 0700 Intake Total 1000 Output Total Balance 1000 Intake, Oral 1000 Number 1 Bowel Movements Number Voids 4 PATIENT WEIGHT: Weight (lb): 149 Weight (oz): 4.05 Weight (kg): 67.585 Medications: Active Meds + DC'd Last 24 Hrs Cefazolin Sodium (Cefazolin Sodium) 2 GM Q8H IV Sodium Chloride (NORMAL SALINE 10ML VIAL) 10 ML Docusate Sodium (COLACE 100MG CAPSULE) 100 MG BID PO Bisacodyl (DULCOLAX) 10 MG DAILY PRN PO Bisacodyl (DULCOLAX 10MG SUPPOSITORY) 10 MG DAILY PRN RECTAL Magnesium Hydroxide (MILK OF MAGNESIA) 30 ML Q12H PRN PRN PO Sodium Biphosphate/Sodium Phosphate (FLEET ENEMA) 1 BOT DAILY PRN PRN RECTAL (CKD) Tramadol HCl (ULTRAM 50MG TABLET) 50 MG Q6H PRN PRN PO Insulin Glargine (Lantus/Semglee) 15 UNIT Q12HR SUBQ Acetaminophen (TYLENOL 325MG TABLET) 650 MG Q4H PRN PRN PO Insulin Human Lispro (HumaLOG) 5 UNIT TID MEALS SUBQ Gabapentin (NEURONTIN 100MG CAPSULE) 100 MG TID PO Insulin Human Lispro (HumaLOG) AGGRESSIVE SLIDING SCALE (steroids, infection, resistant) AC HS 0200 SUBQ Dextrose (GLUCOSE) 16 GM ASDIR PRN PO Dextrose/Water (DEXTROSE 50% 50ML SYRINGE) 12.5 GM ASDIR PRN IV Ondansetron HCl (ZOFRAN 4 MG/2 ML) 4 MG Q4H PRN PRN IV Sodium Chloride (NORMAL SALINE 250ML IV BAG) 250 ML ASDIR PRN IV Physical Exam General appearance: alert, awake, oriented Head/Eyes: atraumatic, normocephalic ENT: moist mucosal membranes, normal dentition Neck: full range of motion, no JVD Cardiovascular: normal capillary refill, normal heart sounds, regular rate rhythm, no heave Respiratory: aerating well, clear to auscultation, symmetric expansion, no distress Abdomen: non-tender, soft, no distention Genitourinary: no flank pain, no urinary catheter Extremities: decreased range of motion, moves all Musculoskeletal: decreased ROM, no CVA tenderness Neuro/GATE SUPERVISOR: alert, oriented X 3, normal speech, no motor deficits Skin: dry, normal temperature Ulcer: Type/cause: Dressing over right foot Results Findings/Data: Laboratory Tests 04/03 04/03 04/04 04/04 04/04 1530 2011 0137 0516 1149 Chemistry POC Glucose (65 - 99 MG/DL) 137 H 179 H 146 H 160 H 156 H 04/04 1353 Chemistry POC Glucose (65 - 99 MG/DL) 83 Diagnosis, Assessment Plan Consultants: critical/draw bench operator helper Free Text DxA P Notes Free text DxA P notes: Assessment and plan Right Foot Cellulitis and Abductor Longus Abscess -Rt foot XR Mild soft tissue swelling -CT RLE 2.3 x 0.8 x 0.8 cm abscess within the proximal abductor hallucis muscle in keeping with an abscess. Edema and phlegmon is seen within the adductor hallucis muscle without abscess. No evidence of osteomyelitis. -Patient currently on Ancef -Textile Machinery Instructor consulted, Dr. Mott. -s/p complex I D right foot abscess 03/21/24. Follow up culture. -ID consulted and recommends Ancef 6 g load continuous infusion via PICC with stop date 04/26/2024. Sepsis (POA) 2/2 above -Patient had episode of hypotension 03/21/24 evening after taking [place]. Received albumin 12.5 g IV and midodrine 5 mg PO once. Has dizziness, diaphoresis with hypotension to 86/49 while working with PT 03/22/24. -s/p NS 75 ml/hr x I -Monitor hemodynamic -BP is currently stable. Started tramadol and patient seems to tolerate. 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 KCl 20 mEq PO. -Monitor potassium daily and replace as indicated HTN -Patient currently normotensive on no medication Chronic anemia -Hemoglobin trending slowly downward, will monitor CBC daily. -Iron study compatible with AOCD. Normal vitamin B12 and folate. Moderate malnutrition -Hypoalbuminemia -Nutrition consulted. On supplements. Diet: 1999 ADA with Glucerna shake TID Discussed with patient about goals of care. Explained in detail about the various categories of CODE STATUS. Answered all questions. Wishes are to proceed with FULL CODE STATUS. Advanced care planning performed for more than 16 minutes. Long conversation with patient and patient family at bedside regarding hospital course and plan. All questions answered. High complexity medical decision making Total care time spent was 68 minutes Disposition: Case management consulted for home IV ABx and home wound care. PT evaluated the patient and recommended IRF due to limited ambulation. Case management consulted for IRF. Patient was declined for Inpatient rehab, f/u protective services case worker for SNF at 0604 RPT #:[id number] END OF [id number] 09:30:00 [facility] ([facility]) Critical Care Progress Note REPORT#:[id number] REPORT STATUS: Signed REPORT INITIALIZATION DATE:04/04/24 TIME: 929 PATIENT: TSERNIG BRAUN UNIT #: [id number] RO[address]BED: [address] : 71 AGE: 54 SEX: F ATTEND: Garrett Rhodes DO ADM AUTHOR: Jerry Keith MD R4 REPT SERVICE DT/TIME: 04/04/24 0930 * ALL edits or amendments must be made on the electronic/computer document * Jerry Keith 07/04/24 0930: Subjective Chief complaint: right foot pain Review of Systems Free Text ROS Notes Free Text ROS Notes: 14 point ROS completed and negative unless noted otherwise Objective General VS/I O Last Documented: Result Date Time Pulse Ox 98 04/04 2344 B/P 115/74 04/04 2344 B/P Mean 87.2 04/04 2344 O2 Delivery Room air 04/04 2344 Temp 37.0 04/04 2344 Pulse 92 04/04 2344 Resp 15 04/04 2344 24 hour I O ending at 0700: 04/05 0700 04/04 1900 Intake Total Output Total Balance Number 1 Bowel Movements Number Voids 4 PATIENT WEIGHT: Weight (lb): 149 Weight (oz): 4.05 Weight (kg): 67.585 Medications: Active Meds + DC'd Last 24 Hrs Cefazolin Sodium (Cefazolin Sodium) 2 GM Q8H IV Sodium Chloride (NORMAL SALINE 10ML VIAL) 10 ML Docusate Sodium (COLACE 100MG CAPSULE) 100 MG BID PO Bisacodyl (DULCOLAX) 10 MG DAILY PRN PO Bisacodyl (DULCOLAX 10MG SUPPOSITORY) 10 MG DAILY PRN RECTAL Magnesium Hydroxide (MILK OF MAGNESIA) 30 ML Q12H PRN PRN PO Sodium Biphosphate/Sodium Phosphate (FLEET ENEMA) 1 BOT DAILY PRN PRN RECTAL (CKD) Tramadol HCl (ULTRAM 50MG TABLET) 50 MG Q6H PRN PRN PO Insulin Glargine (Lantus/Semglee) 15 UNIT Q12HR SUBQ Acetaminophen (TYLENOL 325MG TABLET) 650 MG Q4H PRN PRN PO Insulin Human Lispro (HumaLOG) 5 UNIT TID MEALS SUBQ Gabapentin (NEURONTIN 100MG CAPSULE) 100 MG TID PO Insulin Human Lispro (HumaLOG) AGGRESSIVE SLIDING SCALE (steroids, infection, resistant) AC HS 0200 SUBQ Dextrose (GLUCOSE) 16 GM ASDIR PRN PO Dextrose/Water (DEXTROSE 50% 50ML SYRINGE) 12.5 GM ASDIR PRN IV Ondansetron HCl (ZOFRAN 4 MG/2 ML) 4 MG Q4H PRN PRN IV Sodium Chloride (NORMAL SALINE 250ML IV BAG) 250 ML ASDIR PRN IV Physical Exam General appearance: awake Head/eyes: atraumatic, clear cornea, PERRLA ENT: dry mucosal membrane, poor dentition Neck: full range of motion, non-tender, no JVD, no masses or swelling Cardiovascular: normal capillary refill, normal heart sounds, regular rate and rhythm, normal S1/S2, no ectopy Respiratory: aerating well, clear to auscultation, symmetric expansion, no distress Abdomen: soft, non-tender Genitourinary: no bladder distention, no flank pain, no urinary catheter Extremities: edema (to RLE), moves all, normal capillary refill, normal range of motion, no calf tenderness, no clubbing, no cyanosis Musculoskeletal normal inspection, painless range of motion Neuro/GATE SUPERVISOR: alert, oriented X 3, normal speech, reflexes equal bilat, no motor deficits, no sensory deficits Skin: abscess (to right foot), dry, intact, normal color, normal temperature, no rash Ulcer: Type/cause: Dressing over right foot Wound/incision: Location: right foot blister Site condition: no drainage Psychiatry: normal affect, normal judgment/insight, normal mood, not homicidal, not suicidal, no hallucinations Results Findings/data: Laboratory Tests 04/04 04/04 04/04 04/04 04/04 2142 1547 1442 1353 1149 Chemistry POC Glucose (65 - 99 MG/DL) 237 H 141 H 105 H 83 156 H 04/04 04/04 0516 0137 Chemistry POC Glucose (65 - 99 MG/DL) 160 H 146 H Diagnosis, Assessment Plan Free text A P: A/p Acute renal failure Diabetic ketoacidosis Severe sepsis Right foot abscess Normocytic anemia Hypokalemia Patient's mentation appears to be at baseline, no acute neuroconcerns She is saturating well on room air Hemodynamically stable, will continue to monitor closely Monitor renal function closely Strict I's and O's Avoid nephrotoxic medications Transitioned to basal bolus regimen Continue with antibiotics as per ID; On ancef, PICC line in place ID is following Tolerating a diet DVT prophylaxis GI prophylaxis CODE STATUS to full code Medical decision making: High complexity Rest of the management per primary Consultants: critical/draw bench operator helper CHAPIN BAR 04/04/24 1347: Diagnosis, Assessment Plan Plan discussed with: patient, consultants, nurse, interdisc care team, pharmacy/ pharmacist, house staff Additional comments: Patient seen and examined at bedside with resident. Chart, laboratory data and imaging studies reviewed and interpreted personally. Events noted. Agree with above note. at 0033 at 1739 RPT #:[id number] END OF [id number] 15:03:00 [facility] ([facility]) Infectious Dis. Progress Note REPORT#:[id number] REPORT STATUS: Signed REPORT INITIALIZATION DATE:04/03/24 TIME: 1503 PATIENT: TSERING BRAUN UNIT #: [id number] ROOM/BED: [place] [address] : 71 AGE: 54 SEX: F ATTEND: Garrett Rhodes DO ADM AUTHOR: Karey Granger REPT SERVICE DT/TIME: 04/03/24 1503 * ALL edits or amendments must be made on the electronic/computer document * Subjective HPI: Reason for consultation foot abscess and cellulitis. History of present illness Patient is 54-year-old female present to the hospital complains of pain redness swelling of her right foot with evidence of possible abscess. She did not recall how it started. Patient has foot neuropathy. Temperature was 104. Patient is on currently BKA admitted to the ICU with insulin drip. CT of the right lower extremity revealed 2.3 x 0.8 4.8 cm abscess. Patient is currently on vancomycin and Zosyn. Podiatry consult is currently pending I believe. Review of systems; : patient does not report any headaches or visual disturbances. Rest of the 10 systems are normal or as above. Reviewed all the labs CBC CMP all imaging studies and it systems analyst consultant notes and primary care physician notes. Objective General VS/I O: Vital Signs Date Temp Pulse Resp B/P B/P Mean Pulse Ox FiO2 /-04/03 97.7-98.4 84-95 14-16 102-119/64-73 76.8-88.5 96-99 Last Documented: Result Date Time Pulse Ox 99 04/03 1118 B/P 119/71 04/03 1118 B/P Mean 86.8 04/03 1118 Temp 98.4 04/03 1118 Pulse 86 04/03 1118 Resp 16 04/03 1118 O2 Delivery Room air 03/31 0312 Vital Signs: Date Time Temp Pulse Resp B/P B/P Pulse O2 O2 Flow FiO2 Mean Ox Delivery Rate 04/03 1118 98.4 86 16 119/71 86.8 99 04/03 0751 97.7 85 16 119/73 88.5 97 04/03 0302 97.9 89 14 119/71 86.9 99 04/02 2327 97.9 84 16 102/65 77.0 97 04/02 1955 98.2 95 16 102/64 76.8 96 04/02 1607 98.4 88 16 112/70 83.6 97 24 hour I O ending at 0700: 04/03 0700 04/02 1900 Intake Total 900 Output Total Balance 900 Intake, Oral 900 Number 0 Bowel Movements Number Voids 3 PATIENT WEIGHT: Weight (lb): 149 Weight (oz): 4.05 Weight (kg): 67.585 Physical Exam General appearance: sleeping comfortably Wound/incision: Location: R foot Site condition: dressing clean dry, dressing intact Cardiovascular: normal heart sounds Respiratory: aerating well, symmetric expansion, no distress Abdomen: non-tender, soft Genitourinary: no urinary catheter Extremities: moves all Neuro/GATE SUPERVISOR: alert, oriented X 3 Skin: no rash Ulcer: Type/cause: Dressing over right foot Psychiatry: normal affect, normal judgment/insight, normal mood Results Findings/Data: Laboratory Tests 04/03 04/03 04/03 04/02 04/02 1058 0515 0300 1957 1546 Chemistry POC Glucose (65 - 99 MG/DL) 141 H 182 H 175 H 169 H 150 H Diagnosis, Assessment Plan Free Text A P: Assessment Patient is 54-year-old female present to the hospital complains of pain redness swelling of her right foot with evidence of possible abscess. She did not recall how it started. Patient has foot neuropathy. Temperature was 104. Patient is on currently BKA admitted to the ICU with insulin drip. CT of the right lower extremity revealed 2.3 x 0.8 4.8 cm abscess. Patient is currently on vancomycin and Zosyn. Podiatry consult is currently pending I believe. Plan At this time continue with IV vancomycin and Zosyn. Podiatry consultation for possible abscess drainage. Will follow and make further recommendations based on culture results. Thank you for the consultation. 03/14/24 transferred to [facility] floor 03/13 febrile Tmax 103.1; will continue to follow temperature curve with leukocytosis of 16k; will follow on room air; no acute distress noted reports she believes blister ruptured; dressing to R foot c,d,i - wound care notified reports pain to R foot controlled at this time blood cultures 03/12 negative so far; will follow urine cultures 03/13 Staph aureus will change antibiotic to IV Cefazolin monitor for antibiotic related adverse effects pending transfer to [facility] for podiatry evaluation will continue to follow clinically Recommendations per Dr Burks 03/17 -pending I D of abscess on 03/19 blood cultures 03/12 NGTD urine cultures 03/13 Staph aureus Cont. on IV Cefazolin monitor for antibiotic related adverse effects pending podiatry evaluation will continue to follow clinically Reviewed with Dr Burks 03/18/24 Patient remains afebrile, WBC 11 K Patient reports 1 loose bowel movement this morning, will follow blood cultures 03/12 NGTD urine cultures 03/13 Staph aureus Cont. on IV Cefazolin monitor for antibiotic related adverse effects Pending I D of abscess tomorrow; please send cultures Reviewed with Dr Burks 03/19/24 Patient remains afebrile, WBC 11 K Patient denies diarrhea blood cultures 03/12 no growth final urine cultures 03/13 Staph aureus Cont. on IV Cefazolin monitor for antibiotic related adverse effects Pending I D of abscess today please send cultures Reviewed with Dr Burks 03/20/24 Tmax 100.6. WBC 9K Will have nursing staff remove oldest IV Pending right foot I D scheduled for tomorrow Patient is currently on Ancef Reviewed with Dr. Burks 03/21/24 No further fevers, WBC 10K Pending right foot I D today Patient is currently on Ancef Reviewed with Dr. Burks 03/24 Patient status post 03/21/2024 complex I D right foot abscess, * cultures growing staph aureus Patient is currently on Ancef Recommend Ancef 6 g load continuous infusion via PICC with stop date 04/26/2024. Case management orders placed Recommendations from Dr. Burks 03/26/24 Patient has been afebrile, WBC 8K Patient is currently on Ancef Recommend Ancef 6 g load continuous infusion via PICC with stop date 04/26/2024. PICC line in place Pending discharge arrangements Reviewed with Dr. Burks 03/31 Cont. on Ancef Recommend Ancef 6 g load continuous infusion via PICC with stop date 04/26/2024 Pending discharge arrangements Reviewed with Dr. Burks 04/01/24 Patient remains afebrile Patient up in bedside chair. Patient denies any new complaints or concerns at today's visit Patient continues on Ancef Recommend Ancef 6 g continuous infusion via PICC with stop date 04/26/2024 Pending discharge arrangements Reviewed with Dr. Burks 04/02/24 Patient remains afebrile, WBC 5K Patient is currently on Ancef Recommend Ancef 6 g continuous infusion via PICC with stop date 04/26/2024 Pending discharge arrangements; possibly [place] Reviewed with Dr. Burks 04/03/24 Patient remains afebrile Patient is currently on Ancef; tolerating Recommend Ancef 6 g continuous infusion via PICC with stop date 04/26/2024 Pending discharge arrangements Reviewed with Dr. Burks Consultants: critical/draw bench operator helper at 1504 at 0111 RPT #:[id number] END OF [id number] 06:56:00 [facility] ([facility]) Hospitalist Progress Note REPORT#:[id number] REPORT STATUS: Signed REPORT INITIALIZATION DATE:04/03/24 TIME: 655 PATIENT: TSERING BRAUN UNIT #: [id number] ROOM/BED: D331-1 : 71 AGE: 54 SEX: F ATTEND: Garrett Rhodes DO ADM AUTHOR: Garrett Rhodes DO REPT SERVICE DT/TIME: 04/03/24 0656 * ALL edits or amendments must be made on the electronic/computer document * Subjective Chief complaint: Right foot pain HPI: 03/14/24 Patient seen today at bedside. No acute overnight events. Patient reports continued right foot pain. Denies fever, chills, chest pain, abdominal pain or dysuria. Review of Systems Free Text ROS Notes Free Text ROS Notes: Negative except for pertinent positives noted in HPI. Objective General VS/I O: Vital Signs: Date Time Temp Pulse Resp B/P B/P Pulse O2 O2 Flow FiO2 Mean Ox Delivery Rate 04/03 0302 97.9 89 14 119/71 86.9 99 / 2327 97.9 84 16 102/65 77.0 97 04/02 1955 98.2 95 16 102/64 76.8 96 04/02 1607 98.4 88 16 112/70 83.6 97 / 1206 98.4 84 16 113/71 84.9 100 / 0752 98.1 79 18 132/80 97.2 100 24 hour I O ending at 0700: 04/02 1900 04/03 0700 Intake Total 900 Output Total Balance 900 Intake, Oral 900 Number 0 Bowel Movements Number Voids 3 PATIENT WEIGHT: Weight (lb): 149 Weight (oz): 4.05 Weight (kg): 67.585 Medications: Active Meds + DC'd Last 24 Hrs Potassium Chloride (K-DUR) 40 MEQ ONCE ONE PO (DC) Cefazolin Sodium (Cefazolin Sodium) 2 GM Q8H IV Sodium Chloride (NORMAL SALINE 10ML VIAL) 10 ML Docusate Sodium (COLACE 100MG CAPSULE) 100 MG BID PO Bisacodyl (DULCOLAX) 10 MG DAILY PRN PO Bisacodyl (DULCOLAX 10MG SUPPOSITORY) 10 MG DAILY PRN RECTAL Magnesium Hydroxide (MILK OF MAGNESIA) 30 ML Q12H PRN PRN PO Sodium Biphosphate/Sodium Phosphate (FLEET ENEMA) 1 BOT DAILY PRN PRN RECTAL (CKD) Tramadol HCl (ULTRAM 50MG TABLET) 50 MG Q6H PRN PRN PO Insulin Glargine (Lantus/Semglee) 15 UNIT Q12HR SUBQ Acetaminophen (TYLENOL 325MG TABLET) 650 MG Q4H PRN PRN PO Insulin Human Lispro (HumaLOG) 5 UNIT TID MEALS SUBQ Gabapentin (NEURONTIN 100MG CAPSULE) 100 MG TID PO Insulin Human Lispro (HumaLOG) AGGRESSIVE SLIDING SCALE (steroids, infection, resistant) AC HS 0200 SUBQ Dextrose (GLUCOSE) 16 GM ASDIR PRN PO Dextrose/Water (DEXTROSE 50% 50ML SYRINGE) 12.5 GM ASDIR PRN IV Ondansetron HCl (ZOFRAN 4 MG/2 ML) 4 MG Q4H PRN PRN IV Sodium Chloride (NORMAL SALINE 250ML IV BAG) 250 ML ASDIR PRN IV Physical Exam General appearance: alert, awake, oriented Head/Eyes: atraumatic, normocephalic ENT: moist mucosal membranes, normal dentition Neck: full range of motion, no JVD Cardiovascular: normal capillary refill, normal heart sounds, regular rate rhythm, no heave Respiratory: aerating well, clear to auscultation, symmetric expansion, no distress Abdomen: non-tender, soft, no distention Genitourinary: no flank pain, no urinary catheter Extremities: decreased range of motion, moves all Musculoskeletal: decreased ROM, no CVA tenderness Neuro/GATE SUPERVISOR: alert, oriented X 3, normal speech, no motor deficits Skin: dry, normal temperature Ulcer: Type/cause: Dressing over right foot Results Findings/Data: Laboratory Tests 04/02 04/02 04/02 04/02 04/02 1111 1344 1414 1431 1546 Chemistry POC Glucose (65 - 99 MG/DL) 181 H 58 L 114 H 122 H 150 H 04/02 04/03 04/03 1957 0300 0515 Chemistry POC Glucose (65 - 99 MG/DL) 169 H 175 H 182 H Diagnosis, Assessment Plan Consultants: critical/draw bench operator helper Free Text DxA P Notes Free text DxA P notes: Assessment and plan Right Foot Cellulitis and Abductor Longus Abscess -Rt foot XR Mild soft tissue swelling -CT RLE 2.3 x 0.8 x 0.8 cm abscess within the proximal abductor hallucis muscle in keeping with an abscess. Edema and phlegmon is seen within the adductor hallucis muscle without abscess. No evidence of osteomyelitis. -Patient currently on Ancef -Textile Machinery Instructor consulted, Dr. Mott. -s/p complex I D right foot abscess 03/21/24. Follow up culture. -ID consulted and recommends Ancef 6 g load continuous infusion via PICC with stop date 04/26/2024. Sepsis (POA) 2/2 above -Patient had episode of hypotension 03/21/24 evening after taking [place]. Received albumin 12.5 g IV and midodrine 5 mg PO once. Has dizziness, diaphoresis with hypotension to 86/49 while working with PT 03/22/24. -s/p NS 75 ml/hr x I -Monitor hemodynamic -BP is currently stable. Started tramadol and patient seems to tolerate. 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 KCl 20 mEq PO. -Monitor potassium daily and replace as indicated HTN -Patient currently normotensive on no medication Chronic anemia -Hemoglobin trending slowly downward, will monitor CBC daily. -Iron study compatible with AOCD. Normal vitamin B12 and folate. Moderate malnutrition -Hypoalbuminemia -Nutrition consulted. On supplements. Diet: 1999 ADA with Clarita MILLER Discussed with patient about goals of care. Explained in detail about the various categories of CODE STATUS. Answered all questions. Wishes are to proceed with FULL CODE STATUS. Advanced care planning performed for more than 16 minutes. Long conversation with patient and patient family at bedside regarding hospital course and plan. All questions answered. High complexity medical decision making Total care time spent was 68 minutes Disposition: Case management consulted for home IV ABx and home wound care. PT evaluated the patient and recommended IRF due to limited ambulation. Case management consulted for IRF. Patient was declined for Inpatient rehab, f/u protective services case worker for SNF at 1322 RPT #:[id number] END OF [id number] 05:48:00 [facility] ([facility]) Critical Care Progress Note REPORT#:[id number] REPORT STATUS: Signed REPORT INITIALIZATION DATE:04/03/24 TIME: 0548 PATIENT: TSERING BRAUN UNIT #: [id number] ROOM/BED: [place] [address] : 71 AGE: 54 SEX: F ATTEND: Garrett Rhodes DO ADM AUTHOR: Jerry Keith MD R4 REPT SERVICE DT/TIME: 04/03/24 0548 * ALL edits or amendments must be made on the electronic/computer document * See Addendum Subjective Chief complaint: right foot pain Review of Systems Free Text ROS Notes Free Text ROS Notes: 14 point ROS completed and negative unless noted otherwise Objective General VS/I O Last Documented: Result Date Time Pulse Ox 99 04/03 1118 B/P 119/71 04/03 1118 B/P Mean 86.8 04/03 1118 Temp 36.9 04/03 1118 Pulse 86 04/03 1118 Resp 16 04/03 1118 O2 Delivery Room air 03/31 0312 24 hour I O ending at 0700: 04/03 0700 04/02 1900 Intake Total 900 Output Total Balance 900 Intake, Oral 900 Number 0 Bowel Movements Number Voids 3 PATIENT WEIGHT: Weight (lb): 149 Weight (oz): 4.05 Weight (kg): 67.585 Medications: Active Meds + DC'd Last 24 Hrs Cefazolin Sodium (Cefazolin Sodium) 2 GM Q8H IV Sodium Chloride (NORMAL SALINE 10ML VIAL) 10 ML Docusate Sodium (COLACE 100MG CAPSULE) 100 MG BID PO Bisacodyl (DULCOLAX) 10 MG DAILY PRN PO Bisacodyl (DULCOLAX 10MG SUPPOSITORY) 10 MG DAILY PRN RECTAL Magnesium Hydroxide (MILK OF MAGNESIA) 30 ML Q12H PRN PRN PO Sodium Biphosphate/Sodium Phosphate (FLEET ENEMA) 1 BOT DAILY PRN PRN RECTAL (CKD) Tramadol HCl (ULTRAM 50MG TABLET) 50 MG Q6H PRN PRN PO Insulin Glargine (Lantus/Semglee) 15 UNIT Q12HR SUBQ Acetaminophen (TYLENOL 325MG TABLET) 650 MG Q4H PRN PRN PO Insulin Human Lispro (HumaLOG) 5 UNIT TID MEALS SUBQ Gabapentin (NEURONTIN 100MG CAPSULE) 100 MG TID PO Insulin Human Lispro (HumaLOG) AGGRESSIVE SLIDING SCALE (steroids, infection, resistant) AC HS 0200 SUBQ Dextrose (GLUCOSE) 16 GM ASDIR PRN PO Dextrose/Water (DEXTROSE 50% 50ML SYRINGE) 12.5 GM ASDIR PRN IV Ondansetron HCl (ZOFRAN 4 MG/2 ML) 4 MG Q4H PRN PRN IV Sodium Chloride (NORMAL SALINE 250ML IV BAG) 250 ML ASDIR PRN IV Physical Exam Head/eyes: atraumatic, clear cornea, PERRLA ENT: dry mucosal membrane, poor dentition Neck: full range of motion, non-tender, no JVD, no masses or swelling Cardiovascular: normal capillary refill, normal heart sounds, regular rate and rhythm, normal S1/S2, no ectopy Respiratory: aerating well, clear to auscultation, symmetric expansion, no distress Abdomen: soft, non-tender Genitourinary: no bladder distention, no flank pain, no urinary catheter Extremities: edema (to RLE), moves all, normal capillary refill, normal range of motion, no calf tenderness, no clubbing, no cyanosis Musculoskeletal normal inspection, painless range of motion Neuro/GATE SUPERVISOR: alert, oriented X 3, normal speech, reflexes equal bilat, no motor deficits, no sensory deficits Skin: abscess (to right foot), dry, intact, normal color, normal temperature, no rash Ulcer: Type/cause: Dressing over right foot Wound/incision: Location: right foot blister Site condition: no drainage Psychiatry: normal affect, normal judgment/insight, normal mood, not homicidal, not suicidal, no hallucinations Results Findings/data: Laboratory Tests 04/03 04/03 04/02 04/02 04/02 0515 0300 1957 1546 1431 Chemistry POC Glucose (65 - 99 MG/DL) 182 H 175 H 169 H 150 H 122 H 04/02 04/02 1414 1344 Chemistry POC Glucose (65 - 99 MG/DL) 114 H 58 L Diagnosis, Assessment Plan Free text A P: A/p Acute renal failure Diabetic ketoacidosis Severe sepsis Right foot abscess Normocytic anemia Hypokalemia Patient's mentation appears to be at baseline, no acute neuroconcerns She is saturating well on room air Hemodynamically stable, will continue to monitor closely Monitor renal function closely Strict I's and O's Avoid nephrotoxic medications Transitioned to basal bolus regimen Continue with antibiotics as per ID; On ancef, PICC line in place ID is following Tolerating a diet DVT prophylaxis GI prophylaxis CODE STATUS to full code Medical decision making: High complexity Rest of the management per primary Consultants: critical/draw bench operator helper at 1327 Addendum 1: 04/04/24 1047 by Chapin Bar MD Patient seen and examined at bedside with resident on 04/03/24. Chart, laboratory data and imaging studies reviewed and interpreted personally. Events noted. Agree with above note. at 1047 RPT #:[id number] END OF [id number] 16:23:00 [facility] ([facility]) Hospitalist Progress Note REPORT#:[id number] REPORT STATUS: Signed REPORT INITIALIZATION DATE:04/02/24 TIME: 162 PATIENT: TSERING BRAUN UNIT #: [id number] ROOM/BED: [place] [address] : 71 AGE: 54 SEX: F ATTEND: Pablo Mora MD ADM AUTHOR: Pablo Mora MD REPT SERVICE DT/TIME: 04/02/24 1623 * ALL edits or amendments must be made on the electronic/computer document * Subjective Chief complaint: Right foot pain HPI: 03/14/24 Patient seen today at bedside. No acute overnight events. Patient reports continued right foot pain. Denies fever, chills, chest pain, abdominal pain or dysuria. Patient reports: Yes: feeling better, pain controlled, resting comfortably. No: abdominal pain, chest pain, chills, constipation, cough, fever, headache, nausea, shortness of breath, vomiting. Comments: No new complaints Review of Systems Free Text ROS Notes Free Text ROS Notes: Negative except for pertinent positives noted in HPI. Objective General VS/I O: Vital Signs: Date Time Temp Pulse Resp B/P B/P Pulse O2 O2 Flow FiO2 Mean Ox Delivery Rate 04/02 1955 98.2 95 16 102/64 76.8 96 04/02 1607 98.4 88 16 112/70 83.6 97 04/02 1206 98.4 84 16 113/71 84.9 100 04/02 0752 98.1 79 18 132/80 97.2 100 04/02 0322 98.1 81 16 100/64 76.1 96 / 2310 97.7 89 16 104/64 77.6 99 24 hour I O ending at 0700: 04/02 0700 04/01 1900 Intake Total 850 Output Total Balance 850 Intake, Oral 850 PATIENT WEIGHT: Weight (lb): 149 Weight (oz): 4.05 Weight (kg): 67.585 Physical Exam General appearance: alert, awake, oriented, no acute distress, pleasant Head/Eyes: atraumatic, normocephalic ENT: moist mucosal membranes, normal dentition Neck: full range of motion, no JVD Cardiovascular: normal capillary refill, normal heart sounds, regular rate rhythm, no heave Respiratory: aerating well, clear to auscultation, symmetric expansion, no distress Abdomen: non-tender, soft, no distention Genitourinary: no flank pain, no urinary catheter Extremities: decreased range of motion, moves all Musculoskeletal: decreased ROM, no CVA tenderness Neuro/GATE SUPERVISOR: alert, oriented X 3, normal speech, no motor deficits Skin: dry, normal temperature Ulcer: Type/cause: Dressing over right foot Results Findings/Data: Laboratory Tests 04/02 04/02 04/02 04/02 04/02 195 1546 1431 1414 1344 Chemistry POC Glucose (65 - 99 MG/DL) 169 H 150 H 122 H 114 H 58 L 04/02 04/02 04/02 04/02 1111 0517 0207 0054 Chemistry Sodium (133 - 145 MMOL/L) 142 Potassium (3.6 - 5.2 MMOL/L) 3.5 L Chloride (100 - 108 MMOL/L) 105 Carbon Dioxide (22 - 32 MMOL/L) 33 H BUN (6 - 20 MG/DL) 23 H Creatinine (0.60 - 1.00 MG/DL) 0.44 L Estimated GFR (MDRD) (51 - 120) 116 Glucose (65 - 99 MG/DL) 107 H POC Glucose (65 - 99 MG/DL) 181 H 132 H 109 H Calcium (8.7 - 10.5 MG/DL) 8.9 Laboratory Tests 04/02 0207 Hematology WBC (4.80 - 10.80 x10 3/uL) 5.02 RBC (4.2 - 5.4 x10 6/uL) 3.35 L Hgb (12.0 - 16.0 G/DL) 9.4 L Hct (37 - 47 %) 30.5 L MCV (81 - 99 FL) 91.0 MCH (27 - 31 PG) 28.1 MCHC (33 - 37 G/DL) 30.8 L RDW Coeff of [place] (11.5 - 14.5 %) 12.9 Plt Count (150 - 450 x10 3/uL) 284 MPV (7.4 - 10.4 FL) 8.7 Neut % (Auto) (42 - 86 %) 46.4 Lymph % (Auto) (24 - 44 %) 40.4 [place] % (Auto) (0.0 - 4.0 %) 8.4 H Eos % (Auto) (0.0 - 2.7 %) 3.8 H Baso % (Auto) (0.0 - 0.5 %) 0.4 Eos # (Auto) (0.0 - 0.5 x10 3/uL) 0.19 Baso # (Auto) (0.0 - 0.2 x10 3/uL) 0.02 Abs Immat Gran (auto) (0.00 - 0.03 x10 3/uL) 0.03 Absolute Neuts (auto) (1.8 - 7.7 x10 3/uL) 2.33 Absolute Lymphs (auto) (1.0 - 4.8 x10 3/uL) 2.03 Absolute Monos (auto) (0.0 - 0.8 x10 3/uL) 0.42 Absolute Nucleated RBC (0.0 - 0.2 X10 3/uL) 0.0 Immature Gran % (0.0 - 2.0 %) 0.6 Nucleated RBC % (0.0 - 0.0 %) 0.0 Diagnosis, Assessment Plan Consultants: critical/draw bench operator helper Code status: full code Plan discussed with: patient, nurse Free Text DxA P Notes Free text DxA P notes: Assessment and plan Right Foot Cellulitis and Abductor Longus Abscess -Rt foot XR Mild soft tissue swelling -CT RLE 2.3 x 0.8 x 0.8 cm abscess within the proximal abductor hallucis muscle in keeping with an abscess. Edema and phlegmon is seen within the adductor hallucis muscle without abscess. No evidence of osteomyelitis. -Patient currently on Ancef -Textile Machinery Instructor consulted, Dr. Mott. -s/p complex I D right foot abscess 03/21/24. Follow up culture. -ID consulted and recommends Ancef 6 g load continuous infusion via PICC with stop date 04/26/2024. Sepsis (POA) 2/2 above -Patient had episode of hypotension 03/21/24 evening after taking [place]. Received albumin 12.5 g IV and midodrine 5 mg PO once. Has dizziness, diaphoresis with hypotension to 86/49 while working with PT 03/22/24. -s/p NS 75 ml/hr x I -Monitor hemodynamic -BP is currently stable. Started tramadol and patient seems to tolerate. 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 KCl 20 mEq PO. -Monitor potassium daily and replace as indicated HTN -Patient currently normotensive on no medication Chronic anemia -Hemoglobin trending slowly downward, will monitor CBC daily. -Iron study compatible with AOCD. Normal vitamin B12 and folate. Moderate malnutrition -Hypoalbuminemia -Nutrition consulted. On supplements. Diet: 1999 ADA with Clarita MILLER Discussed with patient about goals of care. Explained in detail about the various categories of CODE STATUS. Answered all questions. Wishes are to proceed with FULL CODE STATUS. Advanced care planning performed for more than 16 minutes. Long conversation with patient and patient family at bedside regarding hospital course and plan. All questions answered. High complexity medical decision making Total care time spent was 68 minutes Disposition: Case management consulted for home IV ABx and home wound care. PT evaluated the patient and recommended IRF due to limited ambulation. Case management consulted for IRF. Patient was declined for Inpatient rehab, f/u protective services case worker for SNF at 2042 RPT #:[id number] END OF [id number] 14:49:00 [facility] ([facility]) Infectious Dis. Progress Note REPORT#:[id number] REPORT STATUS: Signed REPORT INITIALIZATION DATE:04/02/24 TIME: 1448 PATIENT: TSERING BRAUN UNIT #: [id number] ROOM/BED: [facility]31-1 : 71 AGE: 54 SEX: F ATTEND: Garrett Rhodes DO ADM AUTHOR: Karey Granger APRNNP REPT SERVICE DT/TIME: 04/02/241448 * ALL edits or amendments must be made on the electronic/computer document * Subjective HPI: Reason for consultation foot abscess and cellulitis. History of present illness Patient is 54-year-old female present to the hospital complains of pain redness swelling of her right foot with evidence of possible abscess. She did not recall how it started. Patient has foot neuropathy. Temperature was 104. Patient is on currently BKA admitted to the ICU with insulin drip. CT of the right lower extremity revealed 2.3 x 0.8 4.8 cm abscess. Patient is currently on vancomycin and Zosyn. Podiatry consult is currently pending I believe. Review of systems; : patient does not report any headaches or visual disturbances. Rest of the 10 systems are normal or as above. Reviewed all the labs CBC CMP all imaging studies and it systems analyst consultant notes and primary care physician notes. Objective General VS/I O: Vital Signs Date Temp Pulse Resp B/P B/P Mean Pulse Ox FiO2 07/-04/02 97.7-98.6 79-92 12-18 100-132/64-80 76.1-97.2 96-100 Last Documented: Result Date Time Pulse Ox 100 07/ 1206 B/P 113/71 07/ 1206 B/P Mean 84.9 07/ 1206 Temp 98.4 07/ 1206 Pulse 84 07/02 1206 Resp 16 / 1206 O2 Delivery Room air 03/31 031 Vital Signs: Date Time Temp Pulse Resp B/P B/P Pulse O2 O2 Flow FiO2 Mean Ox Delivery Rate / 1206 98.4 84 16 113/71 84.9 100 07/02 0752 98.1 79 18 132/80 97.2 100 07/ 0322 98.1 81 16 100/64 76.1 96 07/01 2310 97.7 89 16 104/64 77.6 99 04/01 1935 98.1 90 16 106/67 80.1 99 04/01 1545 98.6 92 12 123/74 90.7 98 24 hour I O ending at 0700: 04/02 1900 Intake Total 850 Output Total Balance 850 Intake, Oral 850 PATIENT WEIGHT: Weight (lb): 149 Weight (oz): 4.05 Weight (kg): 67.585 Physical Exam General appearance: sleeping comfortably Wound/incision: Location: R foot Site condition: dressing clean dry, dressing intact Cardiovascular: normal heart sounds Respiratory: aerating well, symmetric expansion, no distress Abdomen: non-tender, soft Genitourinary: no urinary catheter Extremities: moves all Neuro/GATE SUPERVISOR: alert, oriented X 3 Skin: no rash Ulcer: Type/cause: Dressing over right foot Psychiatry: normal affect, normal judgment/insight, normal mood Results Findings/Data: Laboratory Tests 04/02 04/02 04/02 04/02 04/02 1431 1414 1344 1111 0517 Chemistry POC Glucose (65 - 99 MG/DL) 122 H 114 H 58 L 181 H 132 H 04/02 04/02 04/01 04/01 0207 0054 1935 1539 Chemistry Sodium (133 - 145 MMOL/L) 142 Potassium (3.6 - 5.2 MMOL/L) 3.5 L Chloride (100 - 108 MMOL/L) 105 Carbon Dioxide (22 - 32 MMOL/L) 33 H BUN (6 - 20 MG/DL) 23 H Creatinine (0.60 - 1.00 MG/DL) 0.44 L Estimated GFR (MDRD) (51 - 120) 116 Glucose (65 - 99 MG/DL) 107 H POC Glucose (65 - 99 MG/DL) 109 H 162 H 119 H Calcium (8.7 - 10.5 MG/DL) 8.9 Laboratory Tests 04/02 020 Hematology WBC (4.80 - 10.80 x10 3/uL) 5.02 RBC (4.2 - 5.4 x10 6/uL) 3.35 L Hgb (12.0 - 16.0 G/DL) 9.4 L Hct (37 - 47 %) 30.5 L MCV (81 - 99 FL) 91.0 MCH (27 - 31 PG) 28.1 MCHC (33 - 37 G/DL) 30.8 L RDW Coeff of Rupert (11.5 - 14.5 %) 12.9 Plt Count (150 - 450 x10 3/uL) 284 MPV (7.4 - 10.4 FL) 8.7 Neut % (Auto) (42 - 86 %) 46.4 Lymph % (Auto) (24 - 44 %) 40.4 [place] % (Auto) (0.0 - 4.0 %) 8.4 H Eos % (Auto) (0.0 - 2.7 %) 3.8 H Baso % (Auto) (0.0 - 0.5 %) 0.4 Eos # (Auto) (0.0 - 0.5 x10 3/uL) 0.19 Baso # (Auto) (0.0 - 0.2 x10 3/uL) 0.02 Abs Immat Gran (auto) (0.00 - 0.03 x10 3/uL) 0.03 Absolute Neuts (auto) (1.8 - 7.7 x10 3/uL) 2.33 Absolute Lymphs (auto) (1.0 - 4.8 x10 3/uL) 2.03 Absolute Monos (auto) (0.0 - 0.8 x10 3/uL) 0.42 Absolute Nucleated RBC (0.0 - 0.2 X10 3/uL) 0.0 Immature Gran % (0.0 - 2.0 %) 0.6 Nucleated RBC % (0.0 - 0.0 %) 0.0 Diagnosis, Assessment Plan Free Text A P: Assessment Patient is 54-year-old female present to the hospital complains of pain redness swelling of her right foot with evidence of possible abscess. She did not recall how it started. Patient has foot neuropathy. Temperature was 104. Patient is on currently BKA admitted to the ICU with insulin drip. CT of the right lower extremity revealed 2.3 x 0.8 4.8 cm abscess. Patient is currently on vancomycin and Zosyn. Podiatry consult is currently pending I believe. Plan At this time continue with IV vancomycin and Zosyn. Podiatry consultation for possible abscess drainage. Will follow and make further recommendations based on culture results. Thank you for the consultation. 03/14/24 transferred to [facility] floor 03/13 febrile Tmax 103.1; will continue to follow temperature curve with leukocytosis of 16k; will follow on room air; no acute distress noted reports she believes blister ruptured; dressing to R foot c,d,i - wound care notified reports pain to R foot controlled at this time blood cultures 03/12 negative so far; will follow urine cultures 03/13 Staph aureus will change antibiotic to IV Cefazolin monitor for antibiotic related adverse effects pending transfer to [facility] for podiatry evaluation will continue to follow clinically Recommendations per Dr Burks 03/17 -pending I D of abscess on 03/19 blood cultures 03/12 NGTD urine cultures 03/13 Staph aureus Cont. on IV Cefazolin monitor for antibiotic related adverse effects pending podiatry evaluation will continue to follow clinically Reviewed with Dr Burks 03/18/24 Patient remains afebrile, WBC 11 K Patient reports 1 loose bowel movement this morning, will follow blood cultures 03/12 NGTD urine cultures 03/13 Staph aureus Cont. on IV Cefazolin monitor for antibiotic related adverse effects Pending I D of abscess tomorrow; please send cultures Reviewed with Dr Burks 03/19/24 Patient remains afebrile, WBC 11 K Patient denies diarrhea blood cultures 03/12 no growth final urine cultures 03/13 Staph aureus Cont. on IV Cefazolin monitor for antibiotic related adverse effects Pending I D of abscess today please send cultures Reviewed with Dr Burks 03/20/24 Tmax 100.6. WBC 9K Will have nursing staff remove oldest IV Pending right foot I D scheduled for tomorrow Patient is currently on Ancef Reviewed with Dr. Burks 03/21/24 No further fevers, WBC 10K Pending right foot I D today Patient is currently on Ancef Reviewed with Dr. Burks 03/24 Patient status post 03/21/2024 complex I D right foot abscess, * cultures growing staph aureus Patient is currently on Ancef Recommend Ancef 6 g load continuous infusion via PICC with stop date 04/26/2024. Case management orders placed Recommendations from Dr. Burks 03/26/24 Patient has been afebrile, WBC 8K Patient is currently on Ancef Recommend Ancef 6 g load continuous infusion via PICC with stop date 04/26/2024. PICC line in place Pending discharge arrangements Reviewed with Dr. Burks 03/31 Cont. on Ancef Recommend Ancef 6 g load continuous infusion via PICC with stop date 04/26/2024 Pending discharge arrangements Reviewed with Dr. Burks 04/01/24 Patient remains afebrile Patient up in bedside chair. Patient denies any new complaints or concerns at today's visit Patient continues on Ancef Recommend Ancef 6 g continuous infusion via PICC with stop date 04/26/2024 Pending discharge arrangements Reviewed with Dr. Burks 04/02/24 Patient remains afebrile, WBC 5K Patient is currently on Ancef Recommend Ancef 6 g continuous infusion via PICC with stop date 04/26/2024 Pending discharge arrangements; possibly [place] Reviewed with Dr. Burks Consultants: critical/draw bench operator helper at 1451 at 0110 RPT #:[id number] END OF [id number] 08:11:00 [facility] ([facility]) Critical Care Progress Note REPORT#:[id number] REPORT STATUS: Signed REPORT INITIALIZATION DATE:04/02/24 TIME: 0811 PATIENT: TSERING BRAUN UNIT #: [id number] ROOM/BED: [place] [address] : 71 AGE: 54 SEX: F ATTEND: Pablo Mora MD ADM AUTHOR: Jerry Keith MD R4 REPT SERVICE DT/TIME: 04/02/24 0811 * ALL edits or amendments must be made on the electronic/computer document * See Addendum Subjective Chief complaint: right foot pain HPI: Patient seen and examined at bedside. No acute events overnight. Feels better. Review of Systems Free Text ROS Notes Free Text ROS Notes: 14 point ROS completed and negative unless noted otherwise Objective General VS/I O Last Documented: Result Date Time Pulse Ox 100 07/02 0752 B/P 132/80 04/02 752 B/P Mean 97.2 04/02 752 Temp 36.7 04/02 752 Pulse 79 04/02 752 Resp 18 04/02 752 O2 Delivery Room air 03/31 312 24 hour I O ending at 0700: 04/02 0700 04/01 1900 Intake Total 850 Output Total Balance 850 Intake, Oral 850 PATIENT WEIGHT: Weight (lb): 149 Weight (oz): 4.05 Weight (kg): 67.585 Medications: Active Meds + DC'd Last 24 Hrs Potassium Chloride (K-DUR) 40 MEQ ONCE ONE PO (DC) Cefazolin Sodium (Cefazolin Sodium) 2 GM Q8H IV Sodium Chloride (NORMAL SALINE 10ML VIAL) 10 ML Docusate Sodium (COLACE 100MG CAPSULE) 100 MG BID PO Bisacodyl (DULCOLAX) 10 MG DAILY PRN PO Bisacodyl (DULCOLAX 10MG SUPPOSITORY) 10 MG DAILY PRN RECTAL Magnesium Hydroxide (MILK OF MAGNESIA) 30 ML Q12H PRN PRN PO Sodium Biphosphate/Sodium Phosphate (FLEET ENEMA) 1 BOT DAILY PRN PRN RECTAL (CKD) Tramadol HCl (ULTRAM 50MG TABLET) 50 MG Q6H PRN PRN PO Insulin Glargine (Lantus/Semglee) 15 UNIT Q12HR SUBQ Acetaminophen (TYLENOL 325MG TABLET) 650 MG Q4H PRN PRN PO Insulin Human Lispro (HumaLOG) 5 UNIT TID MEALS SUBQ Gabapentin (NEURONTIN 100MG CAPSULE) 100 MG TID PO Insulin Human Lispro (HumaLOG) AGGRESSIVE SLIDING SCALE (steroids, infection, resistant) AC HS 0200 SUBQ Dextrose (GLUCOSE) 16 GM ASDIR PRN PO Dextrose/Water (DEXTROSE 50% 50ML SYRINGE) 12.5 GM ASDIR PRN IV Ondansetron HCl (ZOFRAN 4 MG/2 ML) 4 MG Q4H PRN PRN IV Sodium Chloride (NORMAL SALINE 250ML IV BAG) 250 ML ASDIR PRN IV Physical Exam General appearance: awake Head/eyes: atraumatic, clear cornea, PERRLA ENT: dry mucosal membrane, poor dentition Neck: full range of motion, non-tender, no JVD, no masses or swelling Cardiovascular: normal capillary refill, normal heart sounds, regular rate and rhythm, normal S1/S2, no ectopy Respiratory: aerating well, clear to auscultation, symmetric expansion, no distress Abdomen: soft, non-tender Genitourinary: no bladder distention, no flank pain, no urinary catheter Extremities: edema (to RLE), moves all, normal capillary refill, normal range of motion, no calf tenderness, no clubbing, no cyanosis Musculoskeletal normal inspection, painless range of motion Neuro/GATE SUPERVISOR: alert, oriented X 3, normal speech, reflexes equal bilat, no motor deficits, no sensory deficits Skin: abscess (to right foot), dry, intact, normal color, normal temperature, no rash Ulcer: Type/cause: Dressing over right foot Wound/incision: Location: right foot blister Site condition: no drainage Psychiatry: normal affect, normal judgment/insight, normal mood, not homicidal, not suicidal, no hallucinations Results Findings/data: Laboratory Tests 04/02 04/02 04/02 04/02 04/01 1111 0517 0207 0054 1935 Chemistry Sodium (133 - 145 MMOL/L) 142 Potassium (3.6 - 5.2 MMOL/L) 3.5 L Chloride (100 - 108 MMOL/L) 105 Carbon Dioxide (22 - 32 MMOL/L) 33 H BUN (6 - 20 MG/DL) 23 H Creatinine (0.60 - 1.00 MG/DL) 0.44 L Estimated GFR (MDRD) (51 - 120) 116 Glucose (65 - 99 MG/DL) 107 H POC Glucose (65 - 99 MG/DL) 181 H 132 H 109 H 162 H Calcium (8.7 - 10.5 MG/DL) 8.9 04/01 1539 Chemistry POC Glucose (65 - 99 MG/DL) 119 H Laboratory Tests 04/02 0207 Hematology WBC (4.80 - 10.80 x10 3/uL) 5.02 RBC (4.2 - 5.4 x10 6/uL) 3.35 L Hgb (12.0 - 16.0 G/DL) 9.4 L Hct (37 - 47 %) 30.5 L MCV (81 - 99 FL) 91.0 MCH (27 - 31 PG) 28.1 MCHC (33 - 37 G/DL) 30.8 L RDW Coeff of [place] (11.5 - 14.5 %) 12.9 Plt Count (150 - 450 x10 3/uL) 284 MPV (7.4 - 10.4 FL) 8.7 Neut % (Auto) (42 - 86 %) 46.4 Lymph % (Auto) (24 - 44 %) 40.4 [place] % (Auto) (0.0 - 4.0 %) 8.4 H Eos % (Auto) (0.0 - 2.7 %) 3.8 H Baso % (Auto) (0.0 - 0.5 %) 0.4 Eos # (Auto) (0.0 - 0.5 x10 3/uL) 0.19 Baso # (Auto) (0.0 - 0.2 x10 3/uL) 0.02 Abs Immat Gran (auto) (0.00 - 0.03 x10 3/uL) 0.03 Absolute Neuts (auto) (1.8 - 7.7 x10 3/uL) 2.33 Absolute Lymphs (auto) (1.0 - 4.8 x10 3/uL) 2.03 Absolute Monos (auto) (0.0 - 0.8 x10 3/uL) 0.42 Absolute Nucleated RBC (0.0 - 0.2 X10 3/uL) 0.0 Immature Gran % (0.0 - 2.0 %) 0.6 Nucleated RBC % (0.0 - 0.0 %) 0.0 Laboratory Tests 04/02/24 0207: [Embedded Image Not Available] Diagnosis, Assessment Plan Free text A P: A/p Acute renal failure Diabetic ketoacidosis Severe sepsis Right foot abscess Normocytic anemia Hypokalemia Patient's mentation appears to be at baseline, no acute neuroconcerns She is saturating well on room air Hemodynamically stable, will continue to monitor closely Monitor renal function closely Strict I's and O's Avoid nephrotoxic medications Transitioned to basal bolus regimen Continue with antibiotics as per ID; On ancef, PICC line in place ID is following Tolerating a diet DVT prophylaxis GI prophylaxis CODE STATUS to full code Medical decision making: High complexity Rest of the management per primary Consultants: critical/draw bench operator helper at 1200 Addendum 1: 04/02/24 1419 by Chapin Bar MD Patient seen and examined at bedside with resident. Chart, laboratory data and imaging studies reviewed and interpreted personally. Events noted. Agree with above note. at 1419 RPT #:[id number] END OF [id number] 15:00:00 [facility] ([facility]) Critical Care Progress Note REPORT#:[id number] REPORT STATUS: Signed REPORT INITIALIZATION DATE:04/01/24 TIME: 1500 PATIENT: TSERING BRAUN UNIT #: [id number] ROOM/BED: [place] [address] : 71 AGE: 54 SEX: F ATTEND: Pablo Mora MD ADM AUTHOR: Jerry Keith MD R4 REPT SERVICE DT/TIME: 04/01/24 1500 * ALL edits or amendments must be made on the electronic/computer document * See Addendum Subjective Chief complaint: right foot pain HPI: Patient seen and examined at bedside. No acute events overnight. Feels better. Review of Systems Free Text ROS Notes Free Text ROS Notes: 14 point ROS completed and negative unless noted otherwise Objective General VS/I O Last Documented: Result Date Time Pulse Ox 98 04/01 1545 B/P 123/74 04/01 1545 B/P Mean 90.7 04/01 1545 Temp 37.0 04/01 1545 Pulse 92 04/01 1545 Resp 12 04/01 1545 O2 Delivery Room air 03/31 0312 24 hour I O ending at 0700: 04/01 0700 03/31 1900 Intake Total 900 Output Total Balance 900 Intake, Oral 900 Number Voids 2 PATIENT WEIGHT: Weight (lb): 149 Weight (oz): 4.05 Weight (kg): 67.585 Medications: Active Meds + DC'd Last 24 Hrs Cefazolin Sodium (Cefazolin Sodium) 2 GM Q8H IV Sodium Chloride (NORMAL SALINE 10ML VIAL) 10 ML Docusate Sodium (COLACE 100MG CAPSULE) 100 MG BID PO Bisacodyl (DULCOLAX) 10 MG DAILY PRN PO Bisacodyl (DULCOLAX 10MG SUPPOSITORY) 10 MG DAILY PRN RECTAL Magnesium Hydroxide (MILK OF MAGNESIA) 30 ML Q12H PRN PRN PO Sodium Biphosphate/Sodium Phosphate (FLEET ENEMA) 1 BOT DAILY PRN PRN RECTAL (CKD) Tramadol HCl (ULTRAM 50MG TABLET) 50 MG Q6H PRN PRN PO Insulin Glargine (Lantus/Semglee) 15 UNIT Q12HR SUBQ Acetaminophen (TYLENOL 325MG TABLET) 650 MG Q4H PRN PRN PO Insulin Human Lispro (HumaLOG) 5 UNIT TID MEALS SUBQ Gabapentin (NEURONTIN 100MG CAPSULE) 100 MG TID PO Insulin Human Lispro (HumaLOG) AGGRESSIVE SLIDING SCALE (steroids, infection, resistant) AC HS 0200 SUBQ Dextrose (GLUCOSE) 16 GM ASDIR PRN PO Dextrose/Water (DEXTROSE 50% 50ML SYRINGE) 12.5 GM ASDIR PRN IV Ondansetron HCl (ZOFRAN 4 MG/2 ML) 4 MG Q4H PRN PRN IV Sodium Chloride (NORMAL SALINE 250ML IV BAG) 250 ML ASDIR PRN IV Physical Exam General appearance: awake Head/eyes: atraumatic, clear cornea, PERRLA ENT: dry mucosal membrane, poor dentition Neck: full range of motion, non-tender, no JVD, no masses or swelling Cardiovascular: normal capillary refill, normal heart sounds, regular rate and rhythm, normal S1/S2, no ectopy Respiratory: aerating well, clear to auscultation, symmetric expansion, no distress Abdomen: soft, non-tender Genitourinary: no bladder distention, no flank pain, no urinary catheter Extremities: edema (to RLE), moves all, normal capillary refill, normal range of motion, no calf tenderness, no clubbing, no cyanosis Musculoskeletal normal inspection, painless range of motion Neuro/GATE SUPERVISOR: alert, oriented X 3, normal speech, reflexes equal bilat, no motor deficits, no sensory deficits Skin: abscess (to right foot), dry, intact, normal color, normal temperature, no rash Ulcer: Type/cause: Dressing over right foot Wound/incision: Location: right foot blister Site condition: no drainage Psychiatry: normal affect, normal judgment/insight, normal mood, not homicidal, not suicidal, no hallucinations Results Findings/data: Laboratory Tests 04/0130 1539 1051 0613 0218 2007 Chemistry POC Glucose (65 - 99 MG/DL) 119 H 195 H 102 H 144 H 179 H 03/31 1622 Chemistry POC Glucose (65 - 99 MG/DL) 136 H Diagnosis, Assessment Plan Free text A P: A/p Acute renal failure Diabetic ketoacidosis Severe sepsis Right foot abscess Normocytic anemia Hypokalemia Patient's mentation appears to be at baseline, no acute neuroconcerns She is saturating well on room air Hemodynamically stable, will continue to monitor closely Monitor renal function closely Strict I's and O's Avoid nephrotoxic medications Transitioned to basal bolus regimen Continue with antibiotics as per ID; On ancef, PICC line in place ID is following Tolerating a diet DVT prophylaxis GI prophylaxis CODE STATUS to full code Medical decision making: High complexity Rest of the management per primary Consultants: critical/draw bench operator helper at 1622 Addendum 1: 04/02/24 1139 by Chapin Bar MD Patient seen and examined at bedside with resident on 04/01/24. Chart, laboratory data and imaging studies reviewed and interpreted personally. Events noted. Agree with above note. at 1139 RPT #:[id number] END OF [id number] 12:57:00 [facility] ([facility]) Hospitalist Progress Note REPORT#:[id number] REPORT STATUS: Signed REPORT INITIALIZATION DATE:04/01/24 TIME: 1257 PATIENT: TSERING BRAUN UNIT #: [id number] ROOM/BED: [place] [address] : 71 AGE: 54 SEX: F ATTEND: Pablo Mora MD ADM AUTHOR: Pablo Mora MD REPT SERVICE DT/TIME: 04/01/24 1257 * ALL edits or amendments must be made on the electronic/computer document * Subjective Chief complaint: Right foot pain HPI: 03/14/24 Patient seen today at bedside. No acute overnight events. Patient reports continued right foot pain. Denies fever, chills, chest pain, abdominal pain or dysuria. Patient reports: Yes: feeling better, pain controlled, resting comfortably. No: abdominal pain, chest pain, chills, constipation, cough, diarrhea, fever, headache, nausea, shortness of breath, vomiting. Comments: No new complaitns Review of Systems Free Text ROS Notes Free Text ROS Notes: Negative except for pertinent positives noted in HPI. Objective General VS/I O: Vital Signs: Date Time Temp Pulse Resp B/P B/P Pulse O2 O2 Flow FiO2 Mean Ox Delivery Rate 04/01 1126 97.9 85 16 132/80 97.5 98 04/01 0810 97.3 78 12 154/87 109.5 99 04/01 0449 98.4 78 16 129/78 95.2 98 03/31 2358 98.4 83 14 128/74 91.9 100 03/31 2000 98.4 86 16 93/57 68.7 96 03/31 1651 97.5 90 14 138/86 103.6 100 24 hour I O ending at 0700: 04/01 1900 Intake Total 900 Output Total Balance 900 Intake, Oral 900 Number Voids 2 PATIENT WEIGHT: Weight (lb): 149 Weight (oz): 4.05 Weight (kg): 67.585 Physical Exam General appearance: alert, awake, oriented, no acute distress, pleasant, conversational, mental status normal, no respiratory distress Head/Eyes: atraumatic, normocephalic ENT: moist mucosal membranes, normal dentition Neck: full range of motion, no JVD Cardiovascular: normal capillary refill, normal heart sounds, regular rate rhythm, no heave Respiratory: aerating well, clear to auscultation, symmetric expansion, no distress Abdomen: non-tender, soft, no distention Genitourinary: no flank pain, no urinary catheter Extremities: decreased range of motion, moves all Musculoskeletal: decreased ROM, no CVA tenderness Neuro/GATE SUPERVISOR: alert, oriented X 3, normal speech, no motor deficits Skin: dry, normal temperature Ulcer: Type/cause: Dressing over right foot Results Findings/Data: Laboratory Tests 04/01 04/01 04/01 03/31 03/31 1051 0613 0218 2007 1622 Chemistry POC Glucose (65 - 99 MG/DL) 195 H 102 H 144 H 179 H 136 H Diagnosis, Assessment Plan Consultants: critical/draw bench operator helper Code status: full code Plan discussed with: patient, nurse Free Text DxA P Notes Free text DxA P notes: Assessment and plan Right Foot Cellulitis and Abductor Longus Abscess -Rt foot XR Mild soft tissue swelling -CT RLE 2.3 x 0.8 x 0.8 cm abscess within the proximal abductor hallucis muscle in keeping with an abscess. Edema and phlegmon is seen within the adductor hallucis muscle without abscess. No evidence of osteomyelitis. -Patient currently on Ancef -Textile Machinery Instructor consulted, Dr. Mott. -s/p complex I D right foot abscess 03/21/24. Follow up culture. -ID consulted and recommends Ancef 6 g load continuous infusion via PICC with stop date 04/26/2024. Sepsis (POA) 2/2 above -Patient had episode of hypotension 03/21/24 evening after taking [place]. Received albumin 12.5 g IV and midodrine 5 mg PO once. Has dizziness, diaphoresis with hypotension to 86/49 while working with PT 03/22/24. -s/p NS 75 ml/hr x I -Monitor hemodynamic -BP is currently stable. Started tramadol and patient seems to tolerate. 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 KCl 20 mEq PO. -Monitor potassium daily and replace as indicated HTN -Patient currently normotensive on no medication Chronic anemia -Hemoglobin trending slowly downward, will monitor CBC daily. -Iron study compatible with AOCD. Normal vitamin B12 and folate. Moderate malnutrition -Hypoalbuminemia -Nutrition consulted. On supplements. Diet: 1999 ADA with Clarita MILLER Discussed with patient about goals of care. Explained in detail about the various categories of CODE STATUS. Answered all questions. Wishes are to proceed with FULL CODE STATUS. Advanced care planning performed for more than 16 minutes. Long conversation with patient and patient family at bedside regarding hospital course and plan. All questions answered. High complexity medical decision making Total care time spent was 68 minutes Disposition: Case management consulted for home IV ABx and home wound care. PT evaluated the patient and recommended IRF due to limited ambulation. Case management consulted for IRF. Patient was declined for Inpatient rehab, f/u protective services case worker for SNF at 1258 RPT #:[id number] END OF [id number] 09:55:00 [facility] ([facility]) Infectious Dis. Progress Note REPORT#:[id number] REPORT STATUS: Signed REPORT INITIALIZATION DATE:04/01/24 TIME: 954 PATIENT: TSERING BRAUN UNIT #: [id number] ROOM/BED: [place] [address] : 71 AGE: 54 SEX: F ATTEND: Garrett Rhodes DO ADM AUTHOR: Karey Granger REPT SERVICE DT/TIME: 04/01/24954 * ALL edits or amendments must be made on the electronic/computer document * Subjective HPI: Reason for consultation foot abscess and cellulitis. History of present illness Patient is 54-year-old female present to the hospital complains of pain redness swelling of her right foot with evidence of possible abscess. She did not recall how it started. Patient has foot neuropathy. Temperature was 104. Patient is on currently BKA admitted to the ICU with insulin drip. CT of the right lower extremity revealed 2.3 x 0.8 4.8 cm abscess. Patient is currently on vancomycin and Zosyn. Podiatry consult is currently pending I believe. Review of systems; : patient does not report any headaches or visual disturbances. Rest of the 10 systems are normal or as above. Reviewed all the labs CBC CMP all imaging studies and it systems analyst consultant notes and primary care physician notes. Objective General VS/I O: Vital Signs Date Temp Pulse Resp B/P B/P Mean Pulse Ox FiO2 03/31-04/01 97.3-98.4 78-90 12-16 93-154/57-87 68.7-109.5 96-100 Last Documented: Result Date Time Pulse Ox 99 04/01 0810 B/P 154/87 04/01 0810 B/P Mean 109.5 04/01 0810 Temp 97.3 04/01 0810 Pulse 78 04/01 0810 Resp 12 04/01 0810 O2 Delivery Room air 03/31 0312 Vital Signs: Date Time Temp Pulse Resp B/P B/P Pulse O2 O2 Flow FiO2 Mean Ox Delivery Rate 04/01 08 97.3 78 12 154/87 109.5 99 04/01 0449 98.4 78 16 129/78 95.2 98 03/31 2358 98.4 83 14 128/74 91.9 100 03/31 2000 98.4 86 16 93/57 68.7 96 03/31 1651 97.5 90 14 138/86 103.6 100 03/31 1246 98.4 84 16 148/87 107.3 100 24 hour I O ending at 0700: 04/01 1900 Intake Total 900 Output Total Balance 900 Intake, Oral 900 Number Voids 2 PATIENT WEIGHT: Weight (lb): 149 Weight (oz): 4.05 Weight (kg): 67.585 Physical Exam General appearance: alert, awake, oriented Wound/incision: Location: R foot Site condition: dressing clean dry, dressing intact Cardiovascular: normal heart sounds Respiratory: aerating well, symmetric expansion, no distress Abdomen: non-tender, soft Genitourinary: no urinary catheter Extremities: moves all Neuro/GATE SUPERVISOR: alert, oriented X 3 Skin: no rash Ulcer: Type/cause: Dressing over right foot Psychiatry: normal affect, normal judgment/insight, normal mood Results Findings/Data: Laboratory Tests 04/0113 0218 2007 1622 1102 Chemistry POC Glucose (65 - 99 MG/DL) 102 H 144 H 179 H 136 H 210 H Diagnosis, Assessment Plan Free Text A P: Assessment Patient is 54-year-old female present to the hospital complains of pain redness swelling of her right foot with evidence of possible abscess. She did not recall how it started. Patient has foot neuropathy. Temperature was 104. Patient is on currently BKA admitted to the ICU with insulin drip. CT of the right lower extremity revealed 2.3 x 0.8 4.8 cm abscess. Patient is currently on vancomycin and Zosyn. Podiatry consult is currently pending I believe. Plan At this time continue with IV vancomycin and Zosyn. Podiatry consultation for possible abscess drainage. Will follow and make further recommendations based on culture results. Thank you for the consultation. 03/14/24 transferred to [facility] floor 03/13 febrile Tmax 103.1; will continue to follow temperature curve with leukocytosis of 16k; will follow on room air; no acute distress noted reports she believes blister ruptured; dressing to R foot c,d,i - wound care notified reports pain to R foot controlled at this time blood cultures 03/12 negative so far; will follow urine cultures 03/13 Staph aureus will change antibiotic to IV Cefazolin monitor for antibiotic related adverse effects pending transfer to [facility] for podiatry evaluation will continue to follow clinically Recommendations per Dr Burks 03/17 -pending I D of abscess on 03/19 blood cultures 03/12 NGTD urine cultures 03/13 Staph aureus Cont. on IV Cefazolin monitor for antibiotic related adverse effects pending podiatry evaluation will continue to follow clinically Reviewed with Dr Burks 03/18/24 Patient remains afebrile, WBC 11 K Patient reports 1 loose bowel movement this morning, will follow blood cultures 03/12 NGTD urine cultures 03/13 Staph aureus Cont. on IV Cefazolin monitor for antibiotic related adverse effects Pending I D of abscess tomorrow; please send cultures Reviewed with Dr Burks 03/19/24 Patient remains afebrile, WBC 11 K Patient denies diarrhea blood cultures 03/12 no growth final urine cultures 03/13 Staph aureus Cont. on IV Cefazolin monitor for antibiotic related adverse effects Pending I D of abscess today please send cultures Reviewed with Dr Burks 03/20/24 Tmax 100.6. WBC 9K Will have nursing staff remove oldest IV Pending right foot I D scheduled for tomorrow Patient is currently on Ancef Reviewed with Dr. Burks 03/21/24 No further fevers, WBC 10K Pending right foot I D today Patient is currently on Ancef Reviewed with Dr. Burks 03/24 Patient status post 03/21/2024 complex I D right foot abscess, * cultures growing staph aureus Patient is currently on Ancef Recommend Ancef 6 g load continuous infusion via PICC with stop date 04/26/2024. Case management orders placed Recommendations from Dr. Burks 03/26/24 Patient has been afebrile, WBC 8K Patient is currently on Ancef Recommend Ancef 6 g load continuous infusion via PICC with stop date 04/26/2024. PICC line in place Pending discharge arrangements Reviewed with Dr. Burks 03/31 Cont. on Ancef Recommend Ancef 6 g load continuous infusion via PICC with stop date 04/26/2024 Pending discharge arrangements Reviewed with Dr. Burks 04/01/24 Patient remains afebrile Patient up in bedside chair. Patient denies any new complaints or concerns at today's visit Patient continues on Ancef Recommend Ancef 6 g continuous infusion via PICC with stop date 04/26/2024 Pending discharge arrangements Reviewed with Dr. Burks Consultants: critical/draw bench operator helper at 1750 at 0109 RPT #:[id number] END OF [id number] 14:51:00 [facility] ([facility]) Critical Care Progress Note REPORT#:[id number] REPORT STATUS: Signed REPORT INITIALIZATION DATE:03/31/24 TIME: 1450 PATIENT: TSERING BRAUN UNIT #: [id number] ROOM/BED: [place] [address] : 71 AGE: 54 SEX: F ATTEND: Pablo Mora MD ADM AUTHOR: Jordan Lee MD REPT SERVICE DT/TIME: 03/31/24 1451 * ALL edits or amendments must be made on the electronic/computer document * Subjective Chief complaint: right foot pain HPI: Patient seen and examined at bedside. No acute events overnight. Review of Systems All systems rev neg: except as marked Free Text ROS Notes Free Text ROS Notes: 14 point ROS completed and negative unless noted otherwise Objective General VS/I O Last Documented: Result Date Time Pulse Ox 100 03/31 1246 B/P 148/87 03/31 1246 B/P Mean 107.3 03/31 1246 Temp 98.4 03/31 1246 Pulse 84 03/31 1246 Resp 16 03/31 1246 O2 Delivery Room air 03/31 0312 24 hour I O ending at 0700: 03/31 0700 03/30 1900 Intake Total 900 Output Total Balance 900 Intake, Oral 900 Number Voids 2 PATIENT WEIGHT: Weight (lb): 149 Weight (oz): 4.05 Weight (kg): 67.585 Medications: Active Meds + DC'd Last 24 Hrs Cefazolin Sodium (Cefazolin Sodium) 2 GM Q8H IV Sodium Chloride (NORMAL SALINE 10ML VIAL) 10 ML Docusate Sodium (COLACE 100MG CAPSULE) 100 MG BID PO Bisacodyl (DULCOLAX) 10 MG DAILY PRN PO Bisacodyl (DULCOLAX 10MG SUPPOSITORY) 10 MG DAILY PRN RECTAL Magnesium Hydroxide (MILK OF MAGNESIA) 30 ML Q12H PRN PRN PO Sodium Biphosphate/Sodium Phosphate (FLEET ENEMA) 1 BOT DAILY PRN PRN RECTAL (CKD) Tramadol HCl (ULTRAM 50MG TABLET) 50 MG Q6H PRN PRN PO Insulin Glargine (Lantus/Semglee) 15 UNIT Q12HR SUBQ Acetaminophen (TYLENOL 325MG TABLET) 650 MG Q4H PRN PRN PO Insulin Human Lispro (HumaLOG) 5 UNIT TID MEALS SUBQ Gabapentin (NEURONTIN 100MG CAPSULE) 100 MG TID PO Insulin Human Lispro (HumaLOG) AGGRESSIVE SLIDING SCALE (steroids, infection, resistant) AC HS 0200 SUBQ Dextrose (GLUCOSE) 16 GM ASDIR PRN PO Dextrose/Water (DEXTROSE 50% 50ML SYRINGE) 12.5 GM ASDIR PRN IV Ondansetron HCl (ZOFRAN 4 MG/2 ML) 4 MG Q4H PRN PRN IV Sodium Chloride (NORMAL SALINE 250ML IV BAG) 250 ML ASDIR PRN IV Physical Exam Head/eyes: atraumatic, clear cornea, PERRLA ENT: dry mucosal membrane, poor dentition Neck: full range of motion, non-tender, no JVD, no masses or swelling Cardiovascular: normal capillary refill, normal heart sounds, regular rate and rhythm, normal S1/S2, no ectopy Respiratory: aerating well, clear to auscultation, symmetric expansion, no distress Abdomen: soft, non-tender Genitourinary: no bladder distention, no flank pain, no urinary catheter Extremities: edema (to RLE), moves all, normal capillary refill, normal range of motion, no calf tenderness, no clubbing, no cyanosis Musculoskeletal normal inspection, painless range of motion Neuro/GATE SUPERVISOR: alert, oriented X 3, normal speech, reflexes equal bilat, no motor deficits, no sensory deficits Skin: abscess (to right foot), dry, intact, normal color, normal temperature, no rash Ulcer: Type/cause: Dressing over right foot Wound/incision: Location: right foot blister Site condition: no drainage Psychiatry: normal affect, normal judgment/insight, normal mood, not homicidal, not suicidal, no hallucinations Results Findings/data: Laboratory Tests 03/31 03/31 03/31 03/30 03/30 1102 0537 0158 1952 1518 Chemistry POC Glucose (65 - 99 MG/DL) 210 H 126 H 109 H 158 H 159 H Diagnosis, Assessment Plan Free text A P: A/p Acute renal failure Diabetic ketoacidosis Severe sepsis Right foot abscess Normocytic anemia Hypokalemia Patient's mentation appears to be at baseline, no acute neuroconcerns She is saturating well on room air Hemodynamically stable, will continue to monitor closely Monitor renal function closely Strict I's and O's Avoid nephrotoxic medications Transitioned to basal bolus regimen Continue with antibiotics as per ID ID is following Tolerating a diet DVT prophylaxis GI prophylaxis CODE STATUS to full code Medical decision making: High complexity Rest of the management per primary Consultants: critical/draw bench operator helper at 1454 RPT #:[id number] END OF [id number] 13:13:00 [facility] ([facility]) Hospitalist Progress Note REPORT#:[id number] REPORT STATUS: Signed REPORT INITIALIZATION DATE:03/31/24 TIME: 1313 PATIENT: TSERING BRAUN UNIT #: [id number] ROOM/BED: [address]331-1 : 71 AGE: 54 SEX: F ATTEND: Pablo Mora MD ADM AUTHOR: Pablo Mora MD REPT SERVICE DT/TIME: 03/31/24 1313 * ALL edits or amendments must be made on the electronic/computer document * Subjective Chief complaint: Right foot pain HPI: 03/14/24 Patient seen today at bedside. No acute overnight events. Patient reports continued right foot pain. Denies fever, chills, chest pain, abdominal pain or dysuria. Patient reports: Yes: feeling better, pain controlled, resting comfortably. No: abdominal pain, chest pain, chills, constipation, cough, diarrhea, fever, headache, nausea, pain , shortness of breath, vomiting. Comments: No new complaints Review of Systems Free Text ROS Notes Free Text ROS Notes: Negative except for pertinent positives noted in HPI. Objective General VS/I O: Vital Signs: Date Time Temp Pulse Resp B/P B/P Pulse O2 O2 Flow FiO2 Mean Ox Delivery Rate 03/31 1246 98.4 84 16 148/87 107.3 100 03/31 0745 98.4 83 18 149/80 103.5 100 03/31 0312 98.1 88 17 108/68 81.5 96 Room air 03/30 2313 98.1 84 17 104/60 0.0 97 Room air 03/30 1952 97.7 105 17 97/62 73.5 97 Room air 03/30 1656 97.7 91 18 130/70 89.9 98 24 hour I O ending at 0700: 03/31 0700 03/30 1900 Intake Total 900 Output Total Balance 900 Intake, Oral 900 Number Voids 2 PATIENT WEIGHT: Weight (lb): 149 Weight (oz): 4.05 Weight (kg): 67.585 Physical Exam General appearance: alert, oriented, no acute distress, pleasant, mental status normal Head/Eyes: atraumatic, normocephalic ENT: moist mucosal membranes, normal dentition Neck: full range of motion, no JVD Cardiovascular: normal capillary refill, normal heart sounds, regular rate rhythm, no heave Respiratory: aerating well, clear to auscultation, symmetric expansion, no distress Abdomen: non-tender, soft, no distention Genitourinary: no flank pain, no urinary catheter Extremities: decreased range of motion, moves all Musculoskeletal: decreased ROM, no CVA tenderness Neuro/GATE SUPERVISOR: alert, oriented X 3, normal speech, no motor deficits Skin: dry, normal temperature Ulcer: Type/cause: Dressing over right foot Results Findings/Data: Laboratory Tests 03/31 03/31 03/31 03/30 03/30 1102 0537 0158 1952 1518 Chemistry POC Glucose (65 - 99 MG/DL) 210 H 126 H 109 H 158 H 159 H Diagnosis, Assessment Plan Consultants: critical/draw bench operator helper Code status: full code Plan discussed with: patient, nurse Free Text DxA P Notes Free text DxA P notes: Assessment and plan Right Foot Cellulitis and Abductor Longus Abscess -Rt foot XR Mild soft tissue swelling -CT RLE 2.3 x 0.8 x 0.8 cm abscess within the proximal abductor hallucis muscle in keeping with an abscess. Edema and phlegmon is seen within the adductor hallucis muscle without abscess. No evidence of osteomyelitis. -Patient currently on Ancef -Textile Machinery Instructor consulted, Dr. Mott. -s/p complex I D right foot abscess 03/21/24. Follow up culture. -ID consulted and recommends Ancef 6 g load continuous infusion via PICC with stop date 04/26/2024. Sepsis (POA) 2/2 above -Patient had episode of hypotension 03/21/24 evening after taking [place]. Received albumin 12.5 g IV and midodrine 5 mg PO once. Has dizziness, diaphoresis with hypotension to 86/49 while working with PT 03/22/24. -s/p NS 75 ml/hr x I -Monitor hemodynamic -BP is currently stable. Started tramadol and patient seems to tolerate. 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 KCl 20 mEq PO. -Monitor potassium daily and replace as indicated HTN -Patient currently normotensive on no medication Chronic anemia -Hemoglobin trending slowly downward, will monitor CBC daily. -Iron study compatible with AOCD. Normal vitamin B12 and folate. Moderate malnutrition -Hypoalbuminemia -Nutrition consulted. On supplements. Diet: 1999 ADA with Clarita MILLER Discussed with patient about goals of care. Explained in detail about the various categories of CODE STATUS. Answered all questions. Wishes are to proceed with FULL CODE STATUS. Advanced care planning performed for more than 16 minutes. Long conversation with patient and patient family at bedside regarding hospital course and plan. All questions answered. High complexity medical decision making Total care time spent was 68 minutes Disposition: Case management consulted for home IV ABx and home wound care. PT evaluated the patient and recommended IRF due to limited ambulation. Case management consulted for IRF. Patient was declined for Inpatient rehab, f/u protective services case worker for SNF at 1314 RPT #:[id number] END OF [id number] 05:53:00 [facility] ([facility]) Infectious Dis. Progress Note REPORT#:[id number] REPORT STATUS: Signed REPORT INITIALIZATION DATE:03/31/24 TIME: 552 PATIENT: TSERING BRAUN UNIT #: [id number] ROOM/BED: [place] [address] : 71 AGE: 54 SEX: F ATTEND: Garrett Rhodes DO ADM AUTHOR: Danica Granger APRN DNP TRIM MACHINE OPERATOR REPT SERVICE DT/TIME: 03/31/24 0553 * ALL edits or amendments must be made on the electronic/computer document * Subjective HPI: Reason for consultation foot abscess and cellulitis. History of present illness Patient is 54-year-old female present to the hospital complains of pain redness swelling of her right foot with evidence of possible abscess. She did not recall how it started. Patient has foot neuropathy. Temperature was 104. Patient is on currently BKA admitted to the ICU with insulin drip. CT of the right lower extremity revealed 2.3 x 0.8 4.8 cm abscess. Patient is currently on vancomycin and Zosyn. Podiatry consult is currently pending I believe. Review of systems; : patient does not report any headaches or visual disturbances. Rest of the 10 systems are normal or as above. Reviewed all the labs CBC CMP all imaging studies and it systems analyst consultant notes and primary care physician notes. Objective General VS/I O: Vital Signs Date Temp Pulse Resp B/P B/P Mean Pulse Ox FiO2 03/30-03/31 97.5-98.1 83-105 16-18 97-157/60-83 0.0-107.6 96-100 Last Documented: Result Date Time Pulse Ox 96 03/31 312 B/P 108/68 03/31 312 B/P Mean 81.5 03/31 312 O2 Delivery Room air 03/31 312 Temp 98.1 03/31 312 Pulse 88 03/31 312 Resp 17 03/31 312 Vital Signs: Date Time Temp Pulse Resp B/P B/P Pulse O2 O2 Flow FiO2 Mean Ox Delivery Rate 03/31 312 98.1 88 17 108/68 81.5 96 Room air 03/30 2313 98.1 84 17 104/60 0.0 97 Room air 03/30 195 97.7 105 17 97/62 73.5 97 Room air 03/30 1656 97.7 91 18 130/70 89.9 98 03/30 1141 97.5 85 16 157/83 107.6 99 03/30 0748 98.1 83 16 133/74 93.3 100 24 hour I O ending at 0700: 03/31 0700 03/30 1900 Intake Total 900 Output Total Balance 900 Intake, Oral 900 Number Voids 2 PATIENT WEIGHT: Weight (lb): 149 Weight (oz): 4.05 Weight (kg): 67.585 Physical Exam Wound/incision: Location: R foot Site condition: dressing clean dry, dressing intact Cardiovascular: normal heart sounds Respiratory: aerating well, symmetric expansion, no distress Abdomen: non-tender, soft Genitourinary: no urinary catheter Extremities: moves all Neuro/GATE SUPERVISOR: alert, oriented X 3 Skin: no rash Ulcer: Type/cause: Dressing over right foot Psychiatry: normal affect, normal judgment/insight, normal mood Results Findings/Data: Laboratory Tests 03/31 03/31 03/30 03/30 03/30 0537 0158 1952 1518 1043 Chemistry POC Glucose (65 - 99 MG/DL) 126 H 109 H 158 H 159 H 211 H Diagnosis, Assessment Plan Free Text A P: Assessment Patient is 54-year-old female present to the hospital complains of pain redness swelling of her right foot with evidence of possible abscess. She did not recall how it started. Patient has foot neuropathy. Temperature was 104. Patient is on currently BKA admitted to the ICU with insulin drip. CT of the right lower extremity revealed 2.3 x 0.8 4.8 cm abscess. Patient is currently on vancomycin and Zosyn. Podiatry consult is currently pending I believe. Plan At this time continue with IV vancomycin and Zosyn. Podiatry consultation for possible abscess drainage. Will follow and make further recommendations based on culture results. Thank you for the consultation. 03/14/24 transferred to [facility] floor 03/13 febrile Tmax 103.1; will continue to follow temperature curve with leukocytosis of 16k; will follow on room air; no acute distress noted reports she believes blister ruptured; dressing to R foot c,d,i - wound care notified reports pain to R foot controlled at this time blood cultures 03/12 negative so far; will follow urine cultures 03/13 Staph aureus will change antibiotic to IV Cefazolin monitor for antibiotic related adverse effects pending transfer to [facility] for podiatry evaluation will continue to follow clinically Recommendations per Dr Burks 03/17 -pending I D of abscess on 03/19 blood cultures 03/12 NGTD urine cultures 03/13 Staph aureus Cont. on IV Cefazolin monitor for antibiotic related adverse effects pending podiatry evaluation will continue to follow clinically Reviewed with Dr Burks 03/18/24 Patient remains afebrile, WBC 11 K Patient reports 1 loose bowel movement this morning, will follow blood cultures 03/12 NGTD urine cultures 03/13 Staph aureus Cont. on IV Cefazolin monitor for antibiotic related adverse effects Pending I D of abscess tomorrow; please send cultures Reviewed with Dr Burks 03/19/24 Patient remains afebrile, WBC 11 K Patient denies diarrhea blood cultures 03/12 no growth final urine cultures 03/13 Staph aureus Cont. on IV Cefazolin monitor for antibiotic related adverse effects Pending I D of abscess today please send cultures Reviewed with Dr Burks 03/20/24 Tmax 100.6. WBC 9K Will have nursing staff remove oldest IV Pending right foot I D scheduled for tomorrow Patient is currently on Ancef Reviewed with Dr. Burks 03/21/24 No further fevers, WBC 10K Pending right foot I D today Patient is currently on Ancef Reviewed with Dr. Burks 03/24 Patient status post 03/21/2024 complex I D right foot abscess, * cultures growing staph aureus Patient is currently on Ancef Recommend Ancef 6 g load continuous infusion via PICC with stop date 04/26/2024. Case management orders placed Recommendations from Dr. Burks 03/26/24 Patient has been afebrile, WBC 8K Patient is currently on Ancef Recommend Ancef 6 g load continuous infusion via PICC with stop date 04/26/2024. PICC line in place Pending discharge arrangements Reviewed with Dr. Burks 03/31 Cont. on Ancef Recommend Ancef 6 g load continuous infusion via PICC with stop date 04/26/2024 Pending discharge arrangements Reviewed with Dr. Burks at 0553 at 0122 RPT #:[id number] END OF [id number] 17:51:00 [facility] ([facility]) Critical Care Progress Note REPORT#:[id number] REPORT STATUS: Signed REPORT INITIALIZATION DATE:03/30/24 TIME: 1750 PATIENT: TSERING BRAUN UNIT #: [id number] ROOM/BED: D331-1 : 71 AGE: 54 SEX: F ATTEND: Pablo Mora MD ADM AUTHOR: Jordan Lee MD REPT SERVICE DT/TIME: 03/30/241750 * ALL edits or amendments must be made on the electronic/computer document * Subjective Chief complaint: right foot pain HPI: Patient seen and examined at bedside. No acute events overnight. Review of Systems Free Text ROS Notes Free Text ROS Notes: 14 point ROS completed and negative unless noted otherwise Objective General VS/I O Last Documented: Result Date Time Pulse Ox 98 03/30 1656 B/P 130/70 03/30 1656 B/P Mean 89.9 03/30 1656 Temp 97.7 03/30 1656 Pulse 91 03/30 1656 Resp 18 03/30 1656 O2 Delivery Room air 03/30 0447 24 hour I O ending at 0700: 03/30 0700 03/29 1900 Intake Total 900 Output Total 2 Balance 898 Intake, Oral 900 Number 1 Bowel Movements Output, Urine 2 PATIENT WEIGHT: Weight (lb): 149 Weight (oz): 4.05 Weight (kg): 67.585 Medications: Active Meds + DC'd Last 24 Hrs Cefazolin Sodium (Cefazolin Sodium) 2 GM Q8H IV Sodium Chloride (NORMAL SALINE 10ML VIAL) 10 ML Docusate Sodium (COLACE 100MG CAPSULE) 100 MG BID PO Bisacodyl (DULCOLAX) 10 MG DAILY PRN PO Bisacodyl (DULCOLAX 10MG SUPPOSITORY) 10 MG DAILY PRN RECTAL Magnesium Hydroxide (MILK OF MAGNESIA) 30 ML Q12H PRN PRN PO Sodium Biphosphate/Sodium Phosphate (FLEET ENEMA) 1 BOT DAILY PRN PRN RECTAL (CKD) Tramadol HCl (ULTRAM 50MG TABLET) 50 MG Q6H PRN PRN PO Insulin Glargine (Lantus/Semglee) 15 UNIT Q12HR SUBQ Acetaminophen (TYLENOL 325MG TABLET) 650 MG Q4H PRN PRN PO Insulin Human Lispro (HumaLOG) 5 UNIT TID MEALS SUBQ Gabapentin (NEURONTIN 100MG CAPSULE) 100 MG TID PO Insulin Human Lispro (HumaLOG) AGGRESSIVE SLIDING SCALE (steroids, infection, resistant) AC HS 0200 SUBQ Dextrose (GLUCOSE) 16 GM ASDIR PRN PO Dextrose/Water (DEXTROSE 50% 50ML SYRINGE) 12.5 GM ASDIR PRN IV Ondansetron HCl (ZOFRAN 4 MG/2 ML) 4 MG Q4H PRN PRN IV Sodium Chloride (NORMAL SALINE 250ML IV BAG) 250 ML ASDIR PRN IV Physical Exam Head/eyes: atraumatic, clear cornea, PERRLA ENT: dry mucosal membrane, poor dentition Neck: full range of motion, non-tender, no JVD, no masses or swelling Cardiovascular: normal capillary refill, normal heart sounds, regular rate and rhythm, normal S1/S2, no ectopy Respiratory: aerating well, clear to auscultation, symmetric expansion, no distress Abdomen: soft, non-tender Genitourinary: no bladder distention, no flank pain, no urinary catheter Extremities: edema (to RLE), moves all, normal capillary refill, normal range of motion, no calf tenderness, no clubbing, no cyanosis Musculoskeletal normal inspection, painless range of motion Neuro/GATE SUPERVISOR: alert, oriented X 3, normal speech, reflexes equal bilat, no motor deficits, no sensory deficits Skin: abscess (to right foot), dry, intact, normal color, normal temperature, no rash Ulcer: Type/cause: Dressing over right foot Wound/incision: Location: right foot blister Site condition: no drainage Psychiatry: normal affect, normal judgment/insight, normal mood, not homicidal, not suicidal, no hallucinations Results Findings/data: Laboratory Tests 03/30 03/30 03/30 03/30 03/30 1518 1043 0553 0209 0158 Chemistry Sodium (133 - 145 MMOL/L) 140 Potassium (3.6 - 5.2 MMOL/L) 3.9 Chloride (100 - 108 MMOL/L) 104 Carbon Dioxide (22 - 32 MMOL/L) 33 H BUN (6 - 20 MG/DL) 21 H Creatinine (0.60 - 1.00 MG/DL) 0.51 L Estimated GFR (MDRD) (51 - 120) 112 Glucose (65 - 99 MG/DL) 206 H POC Glucose (65 - 99 MG/DL) 159 H 211 H 84 200 H Calcium (8.7 - 10.5 MG/DL) 8.7 03/29 2011 Chemistry POC Glucose (65 - 99 MG/DL) 127 H Laboratory Tests 03/30 0209 Hematology WBC (4.80 - 10.80 x10 3/uL) 5.47 RBC (4.2 - 5.4 x10 6/uL) 3.20 L Hgb (12.0 - 16.0 G/DL) 8.8 L Hct (37 - 47 %) 29.2 L MCV (81 - 99 FL) 91.3 MCH (27 - 31 PG) 27.5 MCHC (33 - 37 G/DL) 30.1 L RDW Coeff of Rupert (11.5 - 14.5 %) 12.7 Plt Count (150 - 450 x10 3/uL) 288 MPV (7.4 - 10.4 FL) 8.4 Neut % (Auto) (42 - 86 %) 57.7 Lymph % (Auto) (24 - 44 %) 33.1 [place] % (Auto) (0.0 - 4.0 %) 6.0 H Eos % (Auto) (0.0 - 2.7 %) 2.6 Baso % (Auto) (0.0 - 0.5 %) 0.2 Eos # (Auto) (0.0 - 0.5 x10 3/uL) 0.14 Baso # (Auto) (0.0 - 0.2 x10 3/uL) 0.01 Abs Immat Gran (auto) (0.00 - 0.03 x10 3/uL) 0.02 Absolute Neuts (auto) (1.8 - 7.7 x10 3/uL) 3.16 Absolute Lymphs (auto) (1.0 - 4.8 x10 3/uL) 1.81 Absolute Monos (auto) (0.0 - 0.8 x10 3/uL) 0.33 Absolute Nucleated RBC (0.0 - 0.2 X10 3/uL) 0.0 Immature Gran % (0.0 - 2.0 %) 0.4 Nucleated RBC % (0.0 - 0.0 %) 0.0 Laboratory Tests 03/30/24 0209: [Embedded Image Not Available] Diagnosis, Assessment Plan Free text A P: A/p Acute renal failure Diabetic ketoacidosis Severe sepsis Right foot abscess Normocytic anemia Hypokalemia Patient's mentation appears to be at baseline, no acute neuroconcerns She is saturating well on room air Hemodynamically stable, will continue to monitor closely Monitor renal function closely Strict I's and O's Avoid nephrotoxic medications Transitioned to basal bolus regimen Continue with antibiotics as per ID ID is following Tolerating a diet DVT prophylaxis GI prophylaxis CODE STATUS to full code Medical decision making: High complexity Rest of cecelia management per primary Consultants: critical/draw bench operator helper at 1753 RPT #:[id number] END OF [id number] 12:28:00 [facility] ([facility]) Hospitalist Progress Note REPORT#:[id number] REPORT STATUS: Signed REPORT INITIALIZATION DATE:03/30/24 TIME: 1228 PATIENT: TSERING BRAUN UNIT #: [id number] ROOM/BED: [facility]-1 : 71 AGE: 54 SEX: F ATTEND: Pablo Mora MD ADM AUTHOR: Pablo Mora MD REPT SERVICE DT/TIME: 03/30/24 1228 * ALL edits or amendments must be made on the electronic/computer document * Subjective Chief complaint: Right foot pain HPI: 03/14/24 Patient seen today at bedside. No acute overnight events. Patient reports continued right foot pain. Denies fever, chills, chest pain, abdominal pain or dysuria. Patient reports: Yes: feeling better, pain controlled, resting comfortably. No: abdominal pain, chest pain, chills, constipation, cough, fever, headache, nausea, shortness of breath, vomiting. Comments: No new complaints Review of Systems Free Text ROS Notes Free Text ROS Notes: Negative except for pertinent positives noted in HPI. Objective General VS/I O: Vital Signs: Date Time Temp Pulse Resp B/P B/P Pulse O2 O2 Flow FiO2 Mean Ox Delivery Rate 03/30 1141 97.5 85 16 157/83 107.6 99 03/30 0748 98.1 83 16 133/74 93.3 100 03/30 0447 98.2 86 18 116/75 88.7 98 Room air 03/29 2350 99.1 85 18 95/61 72.2 96 Room air 03/29 2002 98.6 91 20 94/60 71.4 97 Room air 03/29 1650 98.8 87 16 116/70 85.1 97 03/29 1230 98.1 95 18 112/67 81.6 100 24 hour I O ending at 0700: 03/30 0700 03/29 1900 Intake Total 900 Output Total 2 Balance 898 Intake, Oral 900 Number 1 Bowel Movements Output, Urine 2 PATIENT WEIGHT: Weight (lb): 149 Weight (oz): 4.05 Weight (kg): 67.585 Physical Exam General appearance: oriented, no acute distress, conversational, mental status normal Head/Eyes: atraumatic, normocephalic ENT: moist mucosal membranes, normal dentition Neck: full range of motion, no JVD Cardiovascular: normal capillary refill, normal heart sounds, regular rate rhythm, no heave Respiratory: aerating well, clear to auscultation, symmetric expansion, no distress Abdomen: non-tender, soft, no distention Genitourinary: no flank pain, no urinary catheter Extremities: decreased range of motion, moves all Musculoskeletal: decreased ROM, no CVA tenderness Neuro/GATE SUPERVISOR: alert, oriented X 3, normal speech, no motor deficits Skin: dry, normal temperature Ulcer: Type/cause: Dressing over right foot Results Findings/Data: Laboratory Tests 03/30 03/30 03/30 03/30 03/29 1043 0553 0209 0158 2010 Chemistry Sodium (133 - 145 MMOL/L) 140 Potassium (3.6 - 5.2 MMOL/L) 3.9 Chloride (100 - 108 MMOL/L) 104 Carbon Dioxide (22 - 32 MMOL/L) 33 H BUN (6 - 20 MG/DL) 21 H Creatinine (0.60 - 1.00 MG/DL) 0.51 L Estimated GFR (MDRD) (51 - 120) 112 Glucose (65 - 99 MG/DL) 206 H POC Glucose (65 - 99 MG/DL) 211 H 84 200 H 127 H Calcium (8.7 - 10.5 MG/DL) 8.7 03/29 1541 Chemistry POC Glucose (65 - 99 MG/DL) 202 H Laboratory Tests 03/30 0209 Hematology WBC (4.80 - 10.80 x10 3/uL) 5.47 RBC (4.2 - 5.4 x10 6/uL) 3.20 L Hgb (12.0 - 16.0 G/DL) 8.8 L Hct (37 - 47 %) 29.2 L MCV (81 - 99 FL) 91.3 MCH (27 - 31 PG) 27.5 MCHC (33 - 37 G/DL) 30.1 L RDW Coeff of Rupert (11.5 - 14.5 %) 12.7 Plt Count (150 - 450 x10 3/uL) 288 MPV (7.4 - 10.4 FL) 8.4 Neut % (Auto) (42 - 86 %) 57.7 Lymph % (Auto) (24 - 44 %) 33.1 [place] % (Auto) (0.0 - 4.0 %) 6.0 H Eos % (Auto) (0.0 - 2.7 %) 2.6 Baso % (Auto) (0.0 - 0.5 %) 0.2 Eos # (Auto) (0.0 - 0.5 x10 3/uL) 0.14 Baso # (Auto) (0.0 - 0.2 x10 3/uL) 0.01 Abs Immat Gran (auto) (0.00 - 0.03 x10 3/uL) 0.02 Absolute Neuts (auto) (1.8 - 7.7 x10 3/uL) 3.16 Absolute Lymphs (auto) (1.0 - 4.8 x10 3/uL) 1.81 Absolute Monos (auto) (0.0 - 0.8 x10 3/uL) 0.33 Absolute Nucleated RBC (0.0 - 0.2 X10 3/uL) 0.0 Immature Gran % (0.0 - 2.0 %) 0.4 Nucleated RBC % (0.0 - 0.0 %) 0.0 Diagnosis, Assessment Plan Consultants: critical/draw bench operator helper Code status: full code Plan discussed with: patient, nurse Free Text DxA P Notes Free text DxA P notes: Assessment and plan Right Foot Cellulitis and Abductor Longus Abscess -Rt foot XR Mild soft tissue swelling -CT RLE 2.3 x 0.8 x 0.8 cm abscess within the proximal abductor hallucis muscle in keeping with an abscess. Edema and phlegmon is seen within the adductor hallucis muscle without abscess. No evidence of osteomyelitis. -Patient currently on Ancef -Textile Machinery Instructor consulted, Dr. Mott. -s/p complex I D right foot abscess 03/21/24. Follow up culture. -ID consulted and recommends Ancef 6 g load continuous infusion via PICC with stop date 04/26/2024. Sepsis (POA) 2/2 above -Patient had episode of hypotension 03/21/24 evening after taking [place]. Received albumin 12.5 g IV and midodrine 5 mg PO once. Has dizziness, diaphoresis with hypotension to 86/49 while working with PT 03/22/24. -s/p NS 75 ml/hr x I -Monitor hemodynamic -BP is currently stable. Started tramadol and patient seems to tolerate. 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 KCl 20 mEq PO. -Monitor potassium daily and replace as indicated HTN -Patient currently normotensive on no medication Chronic anemia -Hemoglobin trending slowly downward, will monitor CBC daily. -Iron study compatible with AOCD. Normal vitamin B12 and folate. Moderate malnutrition -Hypoalbuminemia -Nutrition consulted. On supplements. Diet: 1999 ADA with Glucerna shake TID Discussed with patient about goals of care. Explained in detail about the various categories of CODE STATUS. Answered all questions. Wishes are to proceed with FULL CODE STATUS. Advanced care planning performed for more than 16 minutes. Long conversation with patient and patient family at bedside regarding hospital course and plan. All questions answered. High complexity medical decision making Total care time spent was 68 minutes Disposition: Case management consulted for home IV ABx and home wound care. PT evaluated the patient and recommended IRF due to limited ambulation. Case management consulted for IRF. Patient was declined for Inpatient rehab, f/u protective services case worker for SNF at 1230 RPT #:[id number] END OF [id number] 06:23:00 [facility] ([facility]) Infectious Dis. Progress Note REPORT#:[id number] REPORT STATUS: Signed REPORT INITIALIZATION DATE:03/30/24 TIME: 622 PATIENT: TSERING BRAUN UNIT #: [id number] ROOM/BED: [facility] : 71 AGE: 54 SEX: F ATTEND: Garrett Rhodes DO ADM AUTHOR: Danica Granger APRN DNP TRIM MACHINE OPERATOR REPT SERVICE DT/TIME: 03/30/24622 * ALL edits or amendments must be made on the electronic/computer document * Subjective HPI: Reason for consultation foot abscess and cellulitis. History of present illness Patient is 54-year-old female present to the hospital complains of pain redness swelling of her right foot with evidence of possible abscess. She did not recall how it started. Patient has foot neuropathy. Temperature was 104. Patient is on currently BKA admitted to the ICU with insulin drip. CT of the right lower extremity revealed 2.3 x 0.8 4.8 cm abscess. Patient is currently on vancomycin and Zosyn. Podiatry consult is currently pending I believe. Review of systems; : patient does not report any headaches or visual disturbances. Rest of the 10 systems are normal or as above. Reviewed all the labs CBC CMP all imaging studies and it systems analyst consultant notes and primary care physician notes. Objective General VS/I O: Vital Signs Date Temp Pulse Resp B/P B/P Mean Pulse Ox FiO2 03/29-03/30 97.9-99.1 83-95 16-20 94-147/60-78 71.4-100.9 96-100 Last Documented: Result Date Time Pulse Ox 98 03/30 0447 B/P 116/75 03/30 0447 B/P Mean 88.7 03/30 0447 O2 Delivery Room air 03/30 447 Temp 98.2 03/30 0447 Pulse 86 03/30 0447 Resp 18 03/30 0447 Vital Signs: Date Time Temp Pulse Resp B/P B/P Pulse O2 O2 Flow FiO2 Mean Ox Delivery Rate 03/30 0447 98.2 86 18 116/75 88.7 98 Room air 03/29 2350 99.1 85 18 95/61 72.2 96 Room air 03/29 2002 98.6 91 20 94/60 71.4 97 Room air 03/29 1650 98.8 87 16 116/70 85.1 97 03/29 1230 98.1 95 18 112/67 81.6 100 03/29 0816 97.9 83 18 147/78 100.9 97 24 hour I O ending at 0700: 03/30 0700 03/29 1900 Intake Total 900 Output Total 2 Balance 898 Intake, Oral 900 Number 1 Bowel Movements Output, Urine 2 PATIENT WEIGHT: Weight (lb): 149 Weight (oz): 4.05 Weight (kg): 67.585 Physical Exam Wound/incision: Location: R foot Site condition: dressing clean dry, dressing intact Cardiovascular: normal heart sounds Respiratory: aerating well, symmetric expansion, no distress Abdomen: non-tender, soft Genitourinary: no urinary catheter Extremities: moves all Neuro/GATE SUPERVISOR: alert, oriented X 3 Skin: no rash Ulcer: Type/cause: Dressing over right foot Psychiatry: normal affect, normal judgment/insight, normal mood Results Findings/Data: Laboratory Tests 03/30 03/30 03/30 03/29 03/29 0553 0209 157 2010 154 Chemistry Sodium (133 - 145 MMOL/L) 140 Potassium (3.6 - 5.2 MMOL/L) 3.9 Chloride (100 - 108 MMOL/L) 104 Carbon Dioxide (22 - 32 MMOL/L) 33 H BUN (6 - 20 MG/DL) 21 H Creatinine (0.60 - 1.00 MG/DL) 0.51 L Estimated GFR (MDRD) (51 - 120) 112 Glucose (65 - 99 MG/DL) 206 H POC Glucose (65 - 99 MG/DL) 84 200 H 127 H 202 H Calcium (8.7 - 10.5 MG/DL) 8.7 03/29 1107 Chemistry POC Glucose (65 - 99 MG/DL) 173 H Laboratory Tests 03/30 0209 Hematology WBC (4.80 - 10.80 x10 3/uL) 5.47 RBC (4.2 - 5.4 x10 6/uL) 3.20 L Hgb (12.0 - 16.0 G/DL) 8.8 L Hct (37 - 47 %) 29.2 L MCV (81 - 99 FL) 91.3 MCH (27 - 31 PG) 27.5 MCHC (33 - 37 G/DL) 30.1 L RDW Coeff of Rupert (11.5 - 14.5 %) 12.7 Plt Count (150 - 450 x10 3/uL) 288 MPV (7.4 - 10.4 FL) 8.4 Neut % (Auto) (42 - 86 %) 57.7 Lymph % (Auto) (24 - 44 %) 33.1 [place] % (Auto) (0.0 - 4.0 %) 6.0 H Eos % (Auto) (0.0 - 2.7 %) 2.6 Baso % (Auto) (0.0 - 0.5 %) 0.2 Eos # (Auto) (0.0 - 0.5 x10 3/uL) 0.14 Baso # (Auto) (0.0 - 0.2 x10 3/uL) 0.01 Abs Immat Gran (auto) (0.00 - 0.03 x10 3/uL) 0.02 Absolute Neuts (auto) (1.8 - 7.7 x10 3/uL) 3.16 Absolute Lymphs (auto) (1.0 - 4.8 x10 3/uL) 1.81 Absolute Monos (auto) (0.0 - 0.8 x10 3/uL) 0.33 Absolute Nucleated RBC (0.0 - 0.2 X10 3/uL) 0.0 Immature Gran % (0.0 - 2.0 %) 0.4 Nucleated RBC % (0.0 - 0.0 %) 0.0 Diagnosis, Assessment Plan Free Text A P: Assessment Patient is 54-year-old female present to the hospital complains of pain redness swelling of her right foot with evidence of possible abscess. She did not recall how it started. Patient has foot neuropathy. Temperature was 104. Patient is on currently BKA admitted to the ICU with insulin drip. CT of the right lower extremity revealed 2.3 x 0.8 4.8 cm abscess. Patient is currently on vancomycin and Zosyn. Podiatry consult is currently pending I believe. Plan At this time continue with IV vancomycin and Zosyn. Podiatry consultation for possible abscess drainage. Will follow and make further recommendations based on culture results. Thank you for the consultation. 03/14/24 transferred to [facility] floor 03/13 febrile Tmax 103.1; will continue to follow temperature curve with leukocytosis of 16k; will follow on room air; no acute distress noted reports she believes blister ruptured; dressing to R foot c,d,i - wound care notified reports pain to R foot controlled at this time blood cultures 03/12 negative so far; will follow urine cultures 03/13 Staph aureus will change antibiotic to IV Cefazolin monitor for antibiotic related adverse effects pending transfer to [facility] for podiatry evaluation will continue to follow clinically Recommendations per Dr Burks 03/17 -pending I D of abscess on 03/19 blood cultures 03/12 NGTD urine cultures 03/13 Staph aureus Cont. on IV Cefazolin monitor for antibiotic related adverse effects pending podiatry evaluation will continue to follow clinically Reviewed with Dr Burks 03/18/24 Patient remains afebrile, WBC 11 K Patient reports 1 loose bowel movement this morning, will follow blood cultures 03/12 NGTD urine cultures 03/13 Staph aureus Cont. on IV Cefazolin monitor for antibiotic related adverse effects Pending I D of abscess tomorrow; please send cultures Reviewed with Dr Burks 03/19/24 Patient remains afebrile, WBC 11 K Patient denies diarrhea blood cultures 03/12 no growth final urine cultures 03/13 Staph aureus Cont. on IV Cefazolin monitor for antibiotic related adverse effects Pending I D of abscess today please send cultures Reviewed with Dr Burks 03/20/24 Tmax 100.6. WBC 9K Will have nursing staff remove oldest IV Pending right foot I D scheduled for tomorrow Patient is currently on Ancef Reviewed with Dr. Burks 03/21/24 No further fevers, WBC 10K Pending right foot I D today Patient is currently on Ancef Reviewed with Dr. Burks 03/24 Patient status post 03/21/2024 complex I D right foot abscess, * cultures growing staph aureus Patient is currently on Ancef Recommend Ancef 6 g load continuous infusion via PICC with stop date 04/26/2024. Case management orders placed Recommendations from Dr. Burks 03/26/24 Patient has been afebrile, WBC 8K Patient is currently on Ancef Recommend Ancef 6 g load continuous infusion via PICC with stop date 04/26/2024. PICC line in place Pending discharge arrangements Reviewed with Dr. Burks 03/30 Cont. on Ancef Recommend Ancef 6 g load continuous infusion via PICC with stop date 04/26/2024 Pending discharge arrangements Reviewed with Dr. Burks at 0624 at 0122 RPT #:[id number] END OF [id number] 14:43:00 [facility] ([facility]) Critical Care Progress Note REPORT#:[id number] REPORT STATUS: Signed REPORT INITIALIZATION DATE:03/29/24 TIME: 1443 PATIENT: TSERING BRAUN UNIT #: [id number] ROOM/BED: D331-1 : 71 AGE: 54 SEX: F ATTEND: Pablo Mora MD ADM AUTHOR: Chapin Bar MD REPT SERVICE DT/TIME: 03/29/24 1443 * ALL edits or amendments must be made on the electronic/computer document * Subjective Chief complaint: right foot pain Review of Systems ROS Psych: Denies: homicidal ideation, suicidal ideation. All systems rev neg: except as marked Objective General VS/I O Last Documented: Result Date Time Pulse Ox 100 03/29 1230 B/P 112/67 03/29 1230 B/P Mean 81.6 03/29 1230 Temp 98.1 03/29 1230 Pulse 95 03/29 1230 Resp 18 03/29 1230 O2 Delivery Room air 03/28 1051 24 hour I O ending at 0700: 03/29 0700 03/28 1900 Intake Total Output Total Balance Number 1 Bowel Movements Number Voids 1 PATIENT WEIGHT: Weight (lb): 149 Weight (oz): 4.05 Weight (kg): 67.585 Medications: Active Meds + DC'd Last 24 Hrs Cefazolin Sodium (Cefazolin Sodium) 2 GM Q8H IV Sodium Chloride (NORMAL SALINE 10ML VIAL) 10 ML Docusate Sodium (COLACE 100MG CAPSULE) 100 MG BID PO Bisacodyl (DULCOLAX) 10 MG DAILY PRN PO Bisacodyl (DULCOLAX 10MG SUPPOSITORY) 10 MG DAILY PRN RECTAL Magnesium Hydroxide (MILK OF MAGNESIA) 30 ML Q12H PRN PRN PO Sodium Biphosphate/Sodium Phosphate (FLEET ENEMA) 1 BOT DAILY PRN PRN RECTAL (CKD) Tramadol HCl (ULTRAM 50MG TABLET) 50 MG Q6H PRN PRN PO Insulin Glargine (Lantus/Semglee) 15 UNIT Q12HR SUBQ Acetaminophen (TYLENOL 325MG TABLET) 650 MG Q4H PRN PRN PO Insulin Human Lispro (HumaLOG) 5 UNIT TID MEALS SUBQ Gabapentin (NEURONTIN 100MG CAPSULE) 100 MG TID PO Insulin Human Lispro (HumaLOG) AGGRESSIVE SLIDING SCALE (steroids, infection, resistant) AC HS 0200 SUBQ Dextrose (GLUCOSE) 16 GM ASDIR PRN PO Dextrose/Water (DEXTROSE 50% 50ML SYRINGE) 12.5 GM ASDIR PRN IV Ondansetron HCl (ZOFRAN 4 MG/2 ML) 4 MG Q4H PRN PRN IV Sodium Chloride (NORMAL SALINE 250ML IV BAG) 250 ML ASDIR PRN IV Results Findings/Data: Laboratory Tests 03/29/24 0258: [Embedded Image Not Available] Laboratory Tests 03/29 03/29 03/29 03/28 03/28 1107 0603 0258 2003 1708 Chemistry Sodium (133 - 145 MMOL/L) 140 Potassium (3.6 - 5.2 MMOL/L) 4.1 Chloride (100 - 108 MMOL/L) 104 Carbon Dioxide (22 - 32 MMOL/L) 35 H BUN (6 - 20 MG/DL) 20 Creatinine (0.60 - 1.00 MG/DL) 0.53 L Estimated GFR (MDRD) (51 - 120) 111 Glucose (65 - 99 MG/DL) 202 H POC Glucose (65 - 99 MG/DL) 173 H 163 H 100 H 179 H Calcium (8.7 - 10.5 MG/DL) 8.8 Laboratory Tests 03/298 Hematology WBC (4.80 - 10.80 x10 3/uL) 5.66 RBC (4.2 - 5.4 x10 6/uL) 3.08 L Hgb (12.0 - 16.0 G/DL) 8.7 L Hct (37 - 47 %) 28.0 L MCV (81 - 99 FL) 90.9 MCH (27 - 31 PG) 28.2 MCHC (33 - 37 G/DL) 31.1 L RDW Coeff of Rupert (11.5 - 14.5 %) 12.6 Plt Count (150 - 450 x10 3/uL) 279 MPV (7.4 - 10.4 FL) 8.4 Neut % (Auto) (42 - 86 %) 58.2 Lymph % (Auto) (24 - 44 %) 32.3 [place] % (Auto) (0.0 - 4.0 %) 6.9 H Eos % (Auto) (0.0 - 2.7 %) 1.8 Baso % (Auto) (0.0 - 0.5 %) 0.4 Eos # (Auto) (0.0 - 0.5 x10 3/uL) 0.10 Baso # (Auto) (0.0 - 0.2 x10 3/uL) 0.02 Abs Immat Gran (auto) (0.00 - 0.03 x10 3/uL) 0.02 Absolute Neuts (auto) (1.8 - 7.7 x10 3/uL) 3.30 Absolute Lymphs (auto) (1.0 - 4.8 x10 3/uL) 1.83 Absolute Monos (auto) (0.0 - 0.8 x10 3/uL) 0.39 Absolute Nucleated RBC (0.0 - 0.2 X10 3/uL) 0.0 Immature Gran % (0.0 - 2.0 %) 0.4 Nucleated RBC % (0.0 - 0.0 %) 0.0 Results: labs reviewed, vital signs stable, x-ray personally reviewed, current med profile rev'd Free Text Obj Notes Free Text Obj Notes: Head/eyes: atraumatic, clear cornea, PERRLA ENT: dry mucosal membrane, poor dentition Neck: full range of motion, non-tender, no JVD, no masses or swelling Cardiovascular: normal capillary refill, normal heart sounds, regular rate and rhythm, normal S1/S2, no ectopy Respiratory: aerating well, clear to auscultation, symmetric expansion, no distress Abdomen: soft, non-tender Genitourinary: no bladder distention, no flank pain, no urinary catheter Extremities: edema (to RLE), moves all, normal capillary refill, normal range of motion, no calf tenderness, no clubbing, no cyanosis Musculoskeletal normal inspection, painless range of motion Neuro/GATE SUPERVISOR: alert, oriented X 3, normal speech, reflexes equal bilat, no motor deficits, no sensory deficits Skin: abscess (to right foot), dry, intact, normal color, normal temperature, no rash Ulcer: Type/cause: Dressing over right foot Wound/incision: Location: right foot blister Site condition: no drainage Psychiatry: normal affect, normal judgment/insight, normal mood, not homicidal, not suicidal, no hallucinations Diagnosis, Assessment Plan Free text A P: Acute renal failure Diabetic ketoacidosis Severe sepsis Right foot abscess Uncontrolled type 2 diabetes Normocytic anemia Hypokalemia Patient's mentation appears to be at baseline, no acute neuroconcerns She is saturating well on room air Hemodynamically stable, will continue to monitor closely Vasopressors as needed to maintain MAP greater than 65 Monitor renal function closely Strict I's and O's Avoid nephrotoxic medications Transitioned to basal bolus regimen Continue with antibiotics as per ID ID is following Tolerating a diet DVT prophylaxis GI prophylaxis CODE STATUS to full code Medical decision making: High complexity Continue assessment prior at 1444 RPT #:[id number] END OF [id number] 13:21:00 [facility] ([facility]) Hospitalist Progress Note REPORT#:[id number] REPORT STATUS: Signed REPORT INITIALIZATION DATE:03/29/24 TIME: 132 PATIENT: TSERING BRAUN UNIT #: [id number] ROOM/BED: [place] [id number] : 72 AGE: 54 SEX: F ATTEND: Pablo Mora MD ADM AUTHOR: Pablo Mora MD REPT SERVICE DT/TIME: 03/29/24 1321 * ALL edits or amendments must be made on the electronic/computer document * Subjective Chief complaint: Right foot pain HPI: 03/14/24 Patient seen today at bedside. No acute overnight events. Patient reports continued right foot pain. Denies fever, chills, chest pain, abdominal pain or dysuria. Patient reports: Yes: feeling better, pain controlled, resting comfortably. No: abdominal pain, chest pain, chills, constipation, cough, fever, headache, nausea, shortness of breath, vomiting. Comments: No new complaints Review of Systems Free Text ROS Notes Free Text ROS Notes: Negative except for pertinent positives noted in HPI. Objective General VS/I O: Vital Signs: Date Time Temp Pulse Resp B/P B/P Pulse O2 O2 Flow FiO2 Mean Ox Delivery Rate 03/29 1230 98.1 95 18 112/67 81.6 100 03/29 0816 97.9 83 18 147/78 100.9 97 03/29 0333 98.2 86 16 122/77 91.8 96 03/28 2344 98.2 83 16 101/68 79.3 96 03/28 2105 96 99/62 74.1 03/28 2005 99.5 97 16 95/58 70.4 98 24 hour I O ending at 0700: 03/29 0700 03/28 1900 Intake Total Output Total Balance Number 1 Bowel Movements Number Voids 1 PATIENT WEIGHT: Weight (lb): 149 Weight (oz): 4.05 Weight (kg): 67.585 Physical Exam General appearance: alert, awake, oriented, no acute distress, pleasant, conversational, mental status normal, no respiratory distress Head/Eyes: atraumatic, normocephalic ENT: moist mucosal membranes, normal dentition Neck: full range of motion, no JVD Cardiovascular: normal capillary refill, normal heart sounds, regular rate rhythm, no heave Respiratory: aerating well, clear to auscultation, symmetric expansion, no distress Abdomen: non-tender, soft, no distention Genitourinary: no flank pain, no urinary catheter Extremities: decreased range of motion, moves all Musculoskeletal: decreased ROM, no CVA tenderness Neuro/GATE SUPERVISOR: alert, oriented X 3, normal speech, no motor deficits Skin: dry, normal temperature Ulcer: Type/cause: Dressing over right foot Results Findings/Data: Laboratory Tests 03/29 03/29 03/29 03/28 03/28 1107 0603 0258 2003 1708 Chemistry Sodium (133 - 145 MMOL/L) 140 Potassium (3.6 - 5.2 MMOL/L) 4.1 Chloride (100 - 108 MMOL/L) 104 Carbon Dioxide (22 - 32 MMOL/L) 35 H BUN (6 - 20 MG/DL) 20 Creatinine (0.60 - 1.00 MG/DL) 0.53 L Estimated GFR (MDRD) (51 - 120) 111 Glucose (65 - 99 MG/DL) 202 H POC Glucose (65 - 99 MG/DL) 173 H 163 H 100 H 179 H Calcium (8.7 - 10.5 MG/DL) 8.8 Laboratory Tests 03/29 258 Hematology WBC (4.80 - 10.80 x10 3/uL) 5.66 RBC (4.2 - 5.4 x10 6/uL) 3.08 L Hgb (12.0 - 16.0 G/DL) 8.7 L Hct (37 - 47 %) 28.0 L MCV (81 - 99 FL) 90.9 MCH (27 - 31 PG) 28.2 MCHC (33 - 37 G/DL) 31.1 L RDW Coeff of Rupert (11.5 - 14.5 %) 12.6 Plt Count (150 - 450 x10 3/uL) 279 MPV (7.4 - 10.4 FL) 8.4 Neut % (Auto) (42 - 86 %) 58.2 Lymph % (Auto) (24 - 44 %) 32.3 [place] % (Auto) (0.0 - 4.0 %) 6.9 H Eos % (Auto) (0.0 - 2.7 %) 1.8 Baso % (Auto) (0.0 - 0.5 %) 0.4 Eos # (Auto) (0.0 - 0.5 x10 3/uL) 0.10 Baso # (Auto) (0.0 - 0.2 x10 3/uL) 0.02 Abs Immat Gran (auto) (0.00 - 0.03 x10 3/uL) 0.02 Absolute Neuts (auto) (1.8 - 7.7 x10 3/uL) 3.30 Absolute Lymphs (auto) (1.0 - 4.8 x10 3/uL) 1.83 Absolute Monos (auto) (0.0 - 0.8 x10 3/uL) 0.39 Absolute Nucleated RBC (0.0 - 0.2 X10 3/uL) 0.0 Immature Gran % (0.0 - 2.0 %) 0.4 Nucleated RBC % (0.0 - 0.0 %) 0.0 Diagnosis, Assessment Plan Consultants: critical/draw bench operator helper Code status: full code Plan discussed with: patient, nurse Free Text DxA P Notes Free text DxA P notes: Assessment and plan Right Foot Cellulitis and Abductor Longus Abscess -Rt foot XR Mild soft tissue swelling -CT RLE 2.3 x 0.8 x 0.8 cm abscess within the proximal abductor hallucis muscle in keeping with an abscess. Edema and phlegmon is seen within the adductor hallucis muscle without abscess. No evidence of osteomyelitis. -Patient currently on Ancef -Textile Machinery Instructor consulted, Dr. Mott. -s/p complex I D right foot abscess 03/21/24. Follow up culture. -ID consulted and recommends Ancef 6 g load continuous infusion via PICC with stop date 04/26/2024. Sepsis (POA) 2/2 above -Patient had episode of hypotension 03/21/24 evening after taking [place]. Received albumin 12.5 g IV and midodrine 5 mg PO once. Has dizziness, diaphoresis with hypotension to 86/49 while working with PT 03/22/24. -s/p NS 75 ml/hr x I -Monitor hemodynamic -BP is currently stable. Started tramadol and patient seems to tolerate. 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 KCl 20 mEq PO. -Monitor potassium daily and replace as indicated HTN -Patient currently normotensive on no medication Chronic anemia -Hemoglobin trending slowly downward, will monitor CBC daily. -Iron study compatible with AOCD. Normal vitamin B12 and folate. Moderate malnutrition -Hypoalbuminemia -Nutrition consulted. On supplements. Diet: 1999 ADA with Glucermao bateman TIAnastasiia Discussed with patient about goals of care. Explained in detail about the various categories of CODE STATUS. Answered all questions. Wishes are to proceed with FULL CODE STATUS. Advanced care planning performed for more than 16 minutes. Long conversation with patient and patient family at bedside regarding hospital course and plan. All questions answered. High complexity medical decision making Total care time spent was 68 minutes Disposition: Case management consulted for home IV ABx and home wound care. PT evaluated the patient and recommended IRF due to limited ambulation. Case management consulted for IRF. Patient was declined for Inpatient rehab, f/u protective services case worker for SNF at 1323 RPT #:[id number] END OF [id number] 08:16:00 [facility] ([facility]) Infectious Dis. Progress Note REPORT#:[id number] REPORT STATUS: Signed REPORT INITIALIZATION DATE:03/29/24 TIME: 08 PATIENT: TSERING BRAUN UNIT #: [id number] ROOM/BED: [facility]31-1 : 72 AGE: 54 SEX: F ATTEND: Garrett Rhodes DO ADM AUTHOR: Karey Granger REPT SERVICE DT/TIME: 03/29/24 0816 * ALL edits or amendments must be made on the electronic/computer document * Subjective HPI: Reason for consultation foot abscess and cellulitis. History of present illness Patient is 54-year-old female present to the hospital complains of pain redness swelling of her right foot with evidence of possible abscess. She did not recall how it started. Patient has foot neuropathy. Temperature was 104. Patient is on currently BKA admitted to the ICU with insulin drip. CT of the right lower extremity revealed 2.3 x 0.8 4.8 cm abscess. Patient is currently on vancomycin and Zosyn. Podiatry consult is currently pending I believe. Review of systems; : patient does not report any headaches or visual disturbances. Rest of the 10 systems are normal or as above. Reviewed all the labs CBC CMP all imaging studies and it systems analyst consultant notes and primary care physician notes. Objective General VS/I O: Vital Signs Date Temp Pulse Resp B/P B/P Mean Pulse Ox FiO2 03/28-03/29 98.2-99.5 83-97 14-16 95-122/58-77 70.4-91.8 96-98 Last Documented: Result Date Time Pulse Ox 96 03/29 0333 B/P 122/77 03/29 0333 B/P Mean 91.8 03/29 0333 Temp 98.2 03/29 0333 Pulse 86 03/29 0333 Resp 16 03/29 0333 O2 Delivery Room air 03/28 1051 Vital Signs: Date Time Temp Pulse Resp B/P B/P Pulse O2 O2 Flow FiO2 Mean Ox Delivery Rate 03/29 033 98.2 86 16 122/77 91.8 96 03/28 2344 98.2 83 16 101/68 79.3 96 03/28 2105 96 99/62 74.1 03/28 2005 99.5 97 16 95/58 70.4 98 03/28 1051 98.2 90 14 102/67 78.5 97 Room air 24 hour I O ending at 0700: 03/29 0700 03/28 1900 Intake Total Output Total Balance Number 1 Bowel Movements Number Voids 1 PATIENT WEIGHT: Weight (lb): 149 Weight (oz): 4.05 Weight (kg): 67.585 Physical Exam General appearance: alert, awake, oriented Wound/incision: Location: R foot Site condition: dressing clean dry, dressing intact Cardiovascular: normal heart sounds Respiratory: aerating well, symmetric expansion, no distress Abdomen: non-tender, soft Genitourinary: no urinary catheter Extremities: moves all Neuro/GATE SUPERVISOR: alert, oriented X 3 Skin: no rash Ulcer: Type/cause: Dressing over right foot Psychiatry: normal affect, normal judgment/insight, normal mood Results Findings/Data: Laboratory Tests 03/29 0258 2003 1708 1050 Chemistry Sodium (133 - 145 MMOL/L) 140 Potassium (3.6 - 5.2 MMOL/L) 4.1 Chloride (100 - 108 MMOL/L) 104 Carbon Dioxide (22 - 32 MMOL/L) 35 H BUN (6 - 20 MG/DL) 20 Creatinine (0.60 - 1.00 MG/DL) 0.53 L Estimated GFR (MDRD) (51 - 120) 111 Glucose (65 - 99 MG/DL) 202 H POC Glucose (65 - 99 MG/DL) 163 H 100 H 179 H 217 H Calcium (8.7 - 10.5 MG/DL) 8.8 Laboratory Tests 03/298 Hematology WBC (4.80 - 10.80 x10 3/uL) 5.66 RBC (4.2 - 5.4 x10 6/uL) 3.08 L Hgb (12.0 - 16.0 G/DL) 8.7 L Hct (37 - 47 %) 28.0 L MCV (81 - 99 FL) 90.9 MCH (27 - 31 PG) 28.2 MCHC (33 - 37 G/DL) 31.1 L RDW Coeff of Rupert (11.5 - 14.5 %) 12.6 Plt Count (150 - 450 x10 3/uL) 279 MPV (7.4 - 10.4 FL) 8.4 Neut % (Auto) (42 - 86 %) 58.2 Lymph % (Auto) (24 - 44 %) 32.3 [place] % (Auto) (0.0 - 4.0 %) 6.9 H Eos % (Auto) (0.0 - 2.7 %) 1.8 Baso % (Auto) (0.0 - 0.5 %) 0.4 Eos # (Auto) (0.0 - 0.5 x10 3/uL) 0.10 Baso # (Auto) (0.0 - 0.2 x10 3/uL) 0.02 Abs Immat Gran (auto) (0.00 - 0.03 x10 3/uL) 0.02 Absolute Neuts (auto) (1.8 - 7.7 x10 3/uL) 3.30 Absolute Lymphs (auto) (1.0 - 4.8 x10 3/uL) 1.83 Absolute Monos (auto) (0.0 - 0.8 x10 3/uL) 0.39 Absolute Nucleated RBC (0.0 - 0.2 X10 3/uL) 0.0 Immature Gran % (0.0 - 2.0 %) 0.4 Nucleated RBC % (0.0 - 0.0 %) 0.0 Diagnosis, Assessment Plan Free Text A P: Assessment Patient is 54-year-old female present to the hospital complains of pain redness swelling of her right foot with evidence of possible abscess. She did not recall how it started. Patient has foot neuropathy. Temperature was 104. Patient is on currently BKA admitted to the ICU with insulin drip. CT of the right lower extremity revealed 2.3 x 0.8 4.8 cm abscess. Patient is currently on vancomycin and Zosyn. Podiatry consult is currently pending I believe. Plan At this time continue with IV vancomycin and Zosyn. Podiatry consultation for possible abscess drainage. Will follow and make further recommendations based on culture results. Thank you for the consultation. 03/14/24 transferred to [facility] floor 03/13 febrile Tmax 103.1; will continue to follow temperature curve with leukocytosis of 16k; will follow on room air; no acute distress noted reports she believes blister ruptured; dressing to R foot c,d,i - wound care notified reports pain to R foot controlled at this time blood cultures 03/12 negative so far; will follow urine cultures 03/13 Staph aureus will change antibiotic to IV Cefazolin monitor for antibiotic related adverse effects pending transfer to [facility] for podiatry evaluation will continue to follow clinically Recommendations per Dr Burks 03/17 -pending I D of abscess on 03/19 blood cultures 03/12 NGTD urine cultures 03/13 Staph aureus Cont. on IV Cefazolin monitor for antibiotic related adverse effects pending podiatry evaluation will continue to follow clinically Reviewed with Dr Burks 03/18/24 Patient remains afebrile, WBC 11 K Patient reports 1 loose bowel movement this morning, will follow blood cultures 03/12 NGTD urine cultures 03/13 Staph aureus Cont. on IV Cefazolin monitor for antibiotic related adverse effects Pending I D of abscess tomorrow; please send cultures Reviewed with Dr Burks 03/19/24 Patient remains afebrile, WBC 11 K Patient denies diarrhea blood cultures 03/12 no growth final urine cultures 03/13 Staph aureus Cont. on IV Cefazolin monitor for antibiotic related adverse effects Pending I D of abscess today please send cultures Reviewed with Dr Burks 03/20/24 Tmax 100.6. WBC 9K Will have nursing staff remove oldest IV Pending right foot I D scheduled for tomorrow Patient is currently on Ancef Reviewed with Dr. Burks 03/21/24 No further fevers, WBC 10K Pending right foot I D today Patient is currently on Ancef Reviewed with Dr. Burks 03/24 Patient status post 03/21/2024 complex I D right foot abscess, * cultures growing staph aureus Patient is currently on Ancef Recommend Ancef 6 g load continuous infusion via PICC with stop date 04/26/2024. Case management orders placed Recommendations from Dr. Burks 03/26/24 Patient has been afebrile, WBC 8K Patient is currently on Ancef Recommend Ancef 6 g load continuous infusion via PICC with stop date 04/26/2024. PICC line in place Pending discharge arrangements Reviewed with Dr. Burks 03/29/24 Patient has been afebrile, WBC 5K Wound care at bedside Patient is currently on Ancef Recommend Ancef 6 g load continuous infusion via PICC with stop date 04/26/2024 Pending discharge arrangements Reviewed with Dr. Burks Consultants: critical/draw bench operator helper at 1358 at 0121 RPT #:[id number] END OF [id number] 16:41:00 [facility] ([facility]) Hospitalist Progress Note REPORT#:[id number] REPORT STATUS: Signed REPORT INITIALIZATION DATE:03/28/24 TIME: 164 PATIENT: TSERING BRAUN UNIT #: [id number] ROOM/BED: D331-1 : 71 AGE: 54 SEX: F ATTEND: Pablo Mora MD ADM AUTHOR: Pablo Mora MD REPT SERVICE DT/TIME: 03/28/24 1641 * ALL edits or amendments must be made on the electronic/computer document * Subjective Chief complaint: Right foot pain HPI: 03/14/24 Patient seen today at bedside. No acute overnight events. Patient reports continued right foot pain. Denies fever, chills, chest pain, abdominal pain or dysuria. Patient reports: Yes: feeling better, pain controlled, resting comfortably. No: abdominal pain, chest pain, chills, constipation, cough, diarrhea, dizziness, fever, headache, shortness of breath, vomiting. Comments: No new complaints Review of Systems Free Text ROS Notes Free Text ROS Notes: Negative except for pertinent positives noted in HPI. Objective General VS/I O: Vital Signs: Date Time Temp Pulse Resp B/P B/P Pulse O2 O2 Flow FiO2 Mean Ox Delivery Rate 03/28 1051 98.2 90 14 102/67 78.5 97 Room air 03/28 0736 98.2 84 14 111/71 84.3 98 Room air 03/28 0328 98.4 82 16 108/70 82.8 97 03/28 0328 98.4 82 16 108/70 82.8 97 03/27 2327 98.1 95 16 111/68 82.5 98 03/27 1943 98.2 104 16 100/62 74.8 97 24 hour I O ending at 0700: 03/28 0700 03/27 1900 Intake Total Output Total 1200 Balance -1200 Number 1 Bowel Movements Number Voids 4 Output, Urine 1200 PATIENT WEIGHT: Weight (lb): 149 Weight (oz): 4.05 Weight (kg): 67.585 Physical Exam General appearance: alert, oriented, no acute distress, pleasant, conversational , mental status normal Head/Eyes: atraumatic, normocephalic ENT: moist mucosal membranes, normal dentition Neck: full range of motion, no JVD Cardiovascular: normal capillary refill, normal heart sounds, regular rate rhythm, no heave Respiratory: aerating well, clear to auscultation, symmetric expansion, no distress Abdomen: non-tender, soft, no distention Genitourinary: no flank pain, no urinary catheter Extremities: decreased range of motion, moves all Musculoskeletal: decreased ROM, no CVA tenderness Neuro/GATE SUPERVISOR: alert, oriented X 3, normal speech, no motor deficits Skin: dry, normal temperature Ulcer: Type/cause: Dressing over right foot Results Findings/Data: Laboratory Tests 03/28 03/28 03/28 03/27 1050 0519 0203 1946 Chemistry Sodium (133 - 145 MMOL/L) 140 Potassium (3.6 - 5.2 MMOL/L) 4.0 Chloride (100 - 108 MMOL/L) 103 Carbon Dioxide (22 - 32 MMOL/L) 35 H BUN (6 - 20 MG/DL) 20 Creatinine (0.60 - 1.00 MG/DL) 0.40 L Estimated GFR (MDRD) (51 - 120) 118 Glucose (65 - 99 MG/DL) 162 H POC Glucose (65 - 99 MG/DL) 217 H 139 H 198 H Calcium (8.7 - 10.5 MG/DL) 8.3 L Laboratory Tests 03/28 0200 Hematology WBC (4.80 - 10.80 x10 3/uL) 6.54 RBC (4.2 - 5.4 x10 6/uL) 2.99 L Hgb (12.0 - 16.0 G/DL) 8.5 L Hct (37 - 47 %) 26.3 L MCV (81 - 99 FL) 88.0 MCH (27 - 31 PG) 28.4 MCHC (33 - 37 G/DL) 32.3 L RDW Coeff of Rupert (11.5 - 14.5 %) 12.5 Plt Count (150 - 450 x10 3/uL) 295 MPV (7.4 - 10.4 FL) 8.3 Neut % (Auto) (42 - 86 %) 58.2 Lymph % (Auto) (24 - 44 %) 32.6 [place] % (Auto) (0.0 - 4.0 %) 7.3 H Eos % (Auto) (0.0 - 2.7 %) 1.2 Baso % (Auto) (0.0 - 0.5 %) 0.2 Eos # (Auto) (0.0 - 0.5 x10 3/uL) 0.08 Baso # (Auto) (0.0 - 0.2 x10 3/uL) 0.01 Abs Immat Gran (auto) (0.00 - 0.03 x10 3/uL) 0.03 Absolute Neuts (auto) (1.8 - 7.7 x10 3/uL) 3.81 Absolute Lymphs (auto) (1.0 - 4.8 x10 3/uL) 2.13 Absolute Monos (auto) (0.0 - 0.8 x10 3/uL) 0.48 Absolute Nucleated RBC (0.0 - 0.2 X10 3/uL) 0.0 Immature Gran % (0.0 - 2.0 %) 0.5 Nucleated RBC % (0.0 - 0.0 %) 0.0 Diagnosis, Assessment Plan Consultants: critical/draw bench operator helper Code status: full code Plan discussed with: patient, nurse Free Text DxA P Notes Free text DxA P notes: Assessment and plan Right Foot Cellulitis and Abductor Longus Abscess -Rt foot XR Mild soft tissue swelling -CT RLE 2.3 x 0.8 x 0.8 cm abscess within the proximal abductor hallucis muscle in keeping with an abscess. Edema and phlegmon is seen within the adductor hallucis muscle without abscess. No evidence of osteomyelitis. -Patient currently on Ancef -Textile Machinery Instructor consulted, Dr. Mott. -s/p complex I D right foot abscess 03/21/24. Follow up culture. -ID consulted and recommends Ancef 6 g load continuous infusion via PICC with stop date 04/26/2024. Sepsis (POA) 2/2 above -Patient had episode of hypotension 03/21/24 evening after taking [place]. Received albumin 12.5 g IV and midodrine 5 mg PO once. Has dizziness, diaphoresis with hypotension to 86/49 while working with PT 03/22/24. -s/p NS 75 ml/hr x I -Monitor hemodynamic -BP is currently stable. Started tramadol and patient seems to tolerate. 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 KCl 20 mEq PO. -Monitor potassium daily and replace as indicated HTN -Patient currently normotensive on no medication Chronic anemia -Hemoglobin trending slowly downward, will monitor CBC daily. -Iron study compatible with AOCD. Normal vitamin B12 and folate. Moderate malnutrition -Hypoalbuminemia -Nutrition consulted. On supplements. Diet: 1999 ADA with Glucerna shake TID Discussed with patient about goals of care. Explained in detail about the various categories of CODE STATUS. Answered all questions. Wishes are to proceed with FULL CODE STATUS. Advanced care planning performed for more than 16 minutes. Long conversation with patient and patient family at bedside regarding hospital course and plan. All questions answered. High complexity medical decision making Total care time spent was 68 minutes Disposition: Case management consulted for home IV ABx and home wound care. PT evaluated the patient and recommended IRF due to limited ambulation. Case management consulted for IRF. Patient was declined for Inpatient rehab, f/u protective services case worker for SNF at 1644 RPT #:[id number] END OF [id number] 11:56:00 [facility] ([facility]) Critical Care Progress Note REPORT#:[id number] REPORT STATUS: Signed REPORT INITIALIZATION DATE:03/28/24 TIME: 1155 PATIENT: TSERING BRAUN UNIT #: [id number] ROOM/BED: DD331-1 : 72 AGE: 54 SEX: F ATTEND: Pablo Mora MD ADM AUTHOR: Jayme Thayer MD R3 REPT SERVICE DT/TIME: 03/28/24 1156 * ALL edits or amendments must be made on the electronic/computer document * Jayme Thayer 03/28/24 1156: Subjective Chief complaint: right foot pain HPI: Patient seen and examined at bedside. No acute events overnight. Review of Systems All systems rev neg: except as marked Free Text ROS Notes Free Text ROS Notes: 14 point ROS completed and negative unless noted otherwise Objective General VS/I O Last Documented: Result Date Time Pulse Ox 97 03/28 1051 B/P 102/67 03/28 1051 B/P Mean 78.5 03/28 1051 O2 Delivery Room air 03/28 1051 Temp 98.2 03/28 1051 Pulse 90 03/28 1051 Resp 14 03/28 1051 24 hour I O ending at 0700: 03/28 0700 03/27 1900 Intake Total Output Total 1200 Balance -1200 Number 1 Bowel Movements Number Voids 4 Output, Urine 1200 PATIENT WEIGHT: Weight (lb): 149 Weight (oz): 4.05 Weight (kg): 67.585 Medications: Active Meds + DC'd Last 24 Hrs Cefazolin Sodium (Cefazolin Sodium) 2 GM Q8H IV Sodium Chloride (NORMAL SALINE 10ML VIAL) 10 ML Docusate Sodium (COLACE 100MG CAPSULE) 100 MG BID PO Bisacodyl (DULCOLAX) 10 MG DAILY PRN PO Bisacodyl (DULCOLAX 10MG SUPPOSITORY) 10 MG DAILY PRN RECTAL Magnesium Hydroxide (MILK OF MAGNESIA) 30 ML Q12H PRN PRN PO Sodium Biphosphate/Sodium Phosphate (FLEET ENEMA) 1 BOT DAILY PRN PRN RECTAL (CKD) Tramadol HCl (ULTRAM 50MG TABLET) 50 MG Q6H PRN PRN PO Insulin Glargine (Lantus/Semglee) 15 UNIT Q12HR SUBQ Acetaminophen (TYLENOL 325MG TABLET) 650 MG Q4H PRN PRN PO Insulin Human Lispro (HumaLOG) 5 UNIT TID MEALS SUBQ Gabapentin (NEURONTIN 100MG CAPSULE) 100 MG TID PO Insulin Human Lispro (HumaLOG) AGGRESSIVE SLIDING SCALE (steroids, infection, resistant) AC HS 0200 SUBQ Dextrose (GLUCOSE) 16 GM ASDIR PRN PO Dextrose/Water (DEXTROSE 50% 50ML SYRINGE) 12.5 GM ASDIR PRN IV Ondansetron HCl (ZOFRAN 4 MG/2 ML) 4 MG Q4H PRN PRN IV Sodium Chloride (NORMAL SALINE 250ML IV BAG) 250 ML ASDIR PRN IV Physical Exam Head/eyes: atraumatic, clear cornea, PERRLA ENT: dry mucosal membrane, poor dentition Neck: full range of motion, non-tender, no JVD, no masses or swelling Cardiovascular: normal capillary refill, normal heart sounds, regular rate and rhythm, normal S1/S2, no ectopy Respiratory: aerating well, clear to auscultation, symmetric expansion, no distress Abdomen: soft, non-tender Genitourinary: no bladder distention, no flank pain, no urinary catheter Extremities: edema (to RLE), moves all, normal capillary refill, normal range of motion, no calf tenderness, no clubbing, no cyanosis Musculoskeletal normal inspection, painless range of motion Neuro/GATE SUPERVISOR: alert, oriented X 3, normal speech, reflexes equal bilat, no motor deficits, no sensory deficits Skin: abscess (to right foot), dry, intact, normal color, normal temperature, no rash Ulcer: Type/cause: Dressing over right foot Wound/incision: Location: right foot blister Site condition: no drainage Psychiatry: normal affect, normal judgment/insight, normal mood, not homicidal, not suicidal, no hallucinations Results Findings/data: Laboratory Tests 03/28 03/28 03/28 03/27 03/27 1050 0519 0203 1946 1539 Chemistry Sodium (133 - 145 MMOL/L) 140 Potassium (3.6 - 5.2 MMOL/L) 4.0 Chloride (100 - 108 MMOL/L) 103 Carbon Dioxide (22 - 32 MMOL/L) 35 H BUN (6 - 20 MG/DL) 20 Creatinine (0.60 - 1.00 MG/DL) 0.40 L Estimated GFR (MDRD) (51 - 120) 118 Glucose (65 - 99 MG/DL) 162 H POC Glucose (65 - 99 MG/DL) 217 H 139 H 198 H 168 H Calcium (8.7 - 10.5 MG/DL) 8.3 L Laboratory Tests 03/28 0200 Hematology WBC (4.80 - 10.80 x10 3/uL) 6.54 RBC (4.2 - 5.4 x10 6/uL) 2.99 L Hgb (12.0 - 16.0 G/DL) 8.5 L Hct (37 - 47 %) 26.3 L MCV (81 - 99 FL) 88.0 MCH (27 - 31 PG) 28.4 MCHC (33 - 37 G/DL) 32.3 L RDW Coeff of Rupert (11.5 - 14.5 %) 12.5 Plt Count (150 - 450 x10 3/uL) 295 MPV (7.4 - 10.4 FL) 8.3 Neut % (Auto) (42 - 86 %) 58.2 Lymph % (Auto) (24 - 44 %) 32.6 [place] % (Auto) (0.0 - 4.0 %) 7.3 H Eos % (Auto) (0.0 - 2.7 %) 1.2 Baso % (Auto) (0.0 - 0.5 %) 0.2 Eos # (Auto) (0.0 - 0.5 x10 3/uL) 0.08 Baso # (Auto) (0.0 - 0.2 x10 3/uL) 0.01 Abs Immat Gran (auto) (0.00 - 0.03 x10 3/uL) 0.03 Absolute Neuts (auto) (1.8 - 7.7 x10 3/uL) 3.81 Absolute Lymphs (auto) (1.0 - 4.8 x10 3/uL) 2.13 Absolute Monos (auto) (0.0 - 0.8 x10 3/uL) 0.48 Absolute Nucleated RBC (0.0 - 0.2 X10 3/uL) 0.0 Immature Gran % (0.0 - 2.0 %) 0.5 Nucleated RBC % (0.0 - 0.0 %) 0.0 Laboratory Tests 03/28/24 0203: [Embedded Image Not Available] 03/28/24 0200: [Embedded Image Not Available] Diagnosis, Assessment Plan Free text A P: A/p Acute renal failure Diabetic ketoacidosis Severe sepsis Right foot abscess Uncontrolled type 2 diabetes Normocytic anemia Hypokalemia Patient's mentation appears to be at baseline, no acute neuroconcerns She is saturating well on room air Hemodynamically stable, will continue to monitor closely Vasopressors as needed to maintain MAP greater than 65 Monitor renal function closely Strict I's and O's Avoid nephrotoxic medications Transitioned to basal bolus regimen Continue with antibiotics as per ID ID is following Tolerating a diet DVT prophylaxis GI prophylaxis CODE STATUS to full code Medical decision making: High complexity Continue assessment prior Consultants: critical/draw bench operator helper CHAPIN BAR 03/29/24 1105: Diagnosis, Assessment Plan Plan discussed with: patient, consultants, nurse, interdisc care team, pharmacy/ pharmacist, house staff Additional comments: Patient seen and examined at bedside with resident on 03/28/24. Chart, laboratory data and imaging studies reviewed and interpreted personally. Events noted. Agree with above note. at 1415 at 1105 RPT #:[id number] END OF [id number] 07:47:00 [facility] ([facility]) Infectious Dis. Progress Note REPORT#:[id number] REPORT STATUS: Signed REPORT INITIALIZATION DATE:03/28/24 TIME: 746 PATIENT: TSERING BRAUN UNIT #: [id number] ROOM/BED: [place] [address] : 71 AGE: 54 SEX: F ATTEND: Garrett Rhodes DO ADM AUTHOR: Karey Granger APRNNNathen REPT SERVICE DT/TIME: 03/28/24 0747 * ALL edits or amendments must be made on the electronic/computer document * Subjective HPI: Reason for consultation foot abscess and cellulitis. History of present illness Patient is 54-year-old female present to the hospital complains of pain redness swelling of her right foot with evidence of possible abscess. She did not recall how it started. Patient has foot neuropathy. Temperature was 104. Patient is on currently BKA admitted to the ICU with insulin drip. CT of the right lower extremity revealed 2.3 x 0.8 4.8 cm abscess. Patient is currently on vancomycin and Zosyn. Podiatry consult is currently pending I believe. Review of systems; : patient does not report any headaches or visual disturbances. Rest of the 10 systems are normal or as above. Reviewed all the labs CBC CMP all imaging studies and it systems analyst consultant notes and primary care physician notes. Objective General VS/I O: Vital Signs Date Temp Pulse Resp B/P B/P Mean Pulse Ox FiO2 03/27-03/28 98.1-98.8 82-104 14-18 100-133/62-80 74.8-97.4 97-98 Last Documented: Result Date Time Pulse Ox 98 03/28 0736 B/P 111/71 03/28 0736 B/P Mean 84.3 03/28 0736 O2 Delivery Room air 03/28 07 Temp 98.2 03/28 0736 Pulse 84 03/28 0736 Resp 14 03/28 0736 Vital Signs: Date Time Temp Pulse Resp B/P B/P Pulse O2 O2 Flow FiO2 Mean Ox Delivery Rate 03/28 736 98.2 84 14 111/71 84.3 98 Room air 03/28 0328 98.4 82 16 108/70 82.8 97 03/27 2327 98.1 95 16 111/68 82.5 98 03/27 1943 98.2 104 16 100/62 74.8 97 03/27 1453 98.8 97 16 121/72 88.1 98 03/27 1119 98.4 100 18 122/76 91.3 98 03/27 0819 98.1 94 16 133/80 97.4 98 24 hour I O ending at 0700: 03/28 0700 03/27 1900 Intake Total Output Total 1200 Balance -1200 Number 1 Bowel Movements Number Voids 4 Output, Urine 1200 PATIENT WEIGHT: Weight (lb): 149 Weight (oz): 4.05 Weight (kg): 67.585 Physical Exam General appearance: alert, awake, oriented Wound/incision: Location: R foot Site condition: dressing clean dry, dressing intact Cardiovascular: normal heart sounds Respiratory: aerating well, symmetric expansion, no distress Abdomen: non-tender, soft Genitourinary: no urinary catheter Extremities: moves all Neuro/GATE SUPERVISOR: alert, oriented X 3 Skin: no rash Ulcer: Type/cause: Dressing over right foot Psychiatry: normal affect, normal judgment/insight, normal mood Results Findings/Data: Laboratory Tests 03/28 03/28 03/27 03/27 03/27 0519 0203 1946 1539 1108 Chemistry Sodium (133 - 145 MMOL/L) 140 Potassium (3.6 - 5.2 MMOL/L) 4.0 Chloride (100 - 108 MMOL/L) 103 Carbon Dioxide (22 - 32 MMOL/L) 35 H BUN (6 - 20 MG/DL) 20 Creatinine (0.60 - 1.00 MG/DL) 0.40 L Estimated GFR (MDRD) (51 - 120) 118 Glucose (65 - 99 MG/DL) 162 H POC Glucose (65 - 99 MG/DL) 139 H 198 H 168 H 195 H Calcium (8.7 - 10.5 MG/DL) 8.3 L Laboratory Tests 03/28 0200 Hematology WBC (4.80 - 10.80 x10 3/uL) 6.54 RBC (4.2 - 5.4 x10 6/uL) 2.99 L Hgb (12.0 - 16.0 G/DL) 8.5 L Hct (37 - 47 %) 26.3 L MCV (81 - 99 FL) 88.0 MCH (27 - 31 PG) 28.4 MCHC (33 - 37 G/DL) 32.3 L RDW Coeff of Rupert (11.5 - 14.5 %) 12.5 Plt Count (150 - 450 x10 3/uL) 295 MPV (7.4 - 10.4 FL) 8.3 Neut % (Auto) (42 - 86 %) 58.2 Lymph % (Auto) (24 - 44 %) 32.6 [place] % (Auto) (0.0 - 4.0 %) 7.3 H Eos % (Auto) (0.0 - 2.7 %) 1.2 Baso % (Auto) (0.0 - 0.5 %) 0.2 Eos # (Auto) (0.0 - 0.5 x10 3/uL) 0.08 Baso # (Auto) (0.0 - 0.2 x10 3/uL) 0.01 Abs Immat Gran (auto) (0.00 - 0.03 x10 3/uL) 0.03 Absolute Neuts (auto) (1.8 - 7.7 x10 3/uL) 3.81 Absolute Lymphs (auto) (1.0 - 4.8 x10 3/uL) 2.13 Absolute Monos (auto) (0.0 - 0.8 x10 3/uL) 0.48 Absolute Nucleated RBC (0.0 - 0.2 X10 3/uL) 0.0 Immature Gran % (0.0 - 2.0 %) 0.5 Nucleated RBC % (0.0 - 0.0 %) 0.0 Diagnosis, Assessment Plan Free Text A P: Assessment Patient is 54-year-old female present to the hospital complains of pain redness swelling of her right foot with evidence of possible abscess. She did not recall how it started. Patient has foot neuropathy. Temperature was 104. Patient is on currently BKA admitted to the ICU with insulin drip. CT of the right lower extremity revealed 2.3 x 0.8 4.8 cm abscess. Patient is currently on vancomycin and Zosyn. Podiatry consult is currently pending I believe. Plan At this time continue with IV vancomycin and Zosyn. Podiatry consultation for possible abscess drainage. Will follow and make further recommendations based on culture results. Thank you for the consultation. 03/14/24 transferred to [facility] floor 03/13 febrile Tmax 103.1; will continue to follow temperature curve with leukocytosis of 16k; will follow on room air; no acute distress noted reports she believes blister ruptured; dressing to R foot c,d,i - wound care notified reports pain to R foot controlled at this time blood cultures 03/12 negative so far; will follow urine cultures 03/13 Staph aureus will change antibiotic to IV Cefazolin monitor for antibiotic related adverse effects pending transfer to [facility] for podiatry evaluation will continue to follow clinically Recommendations per Dr Burks 03/17 -pending I D of abscess on 03/19 blood cultures 03/12 NGTD urine cultures 03/13 Staph aureus Cont. on IV Cefazolin monitor for antibiotic related adverse effects pending podiatry evaluation will continue to follow clinically Reviewed with Dr Burks 03/18/24 Patient remains afebrile, WBC 11 K Patient reports 1 loose bowel movement this morning, will follow blood cultures 03/12 NGTD urine cultures 03/13 Staph aureus Cont. on IV Cefazolin monitor for antibiotic related adverse effects Pending I D of abscess tomorrow; please send cultures Reviewed with Dr Burks 03/19/24 Patient remains afebrile, WBC 11 K Patient denies diarrhea blood cultures 03/12 no growth final urine cultures 03/13 Staph aureus Cont. on IV Cefazolin monitor for antibiotic related adverse effects Pending I D of abscess today please send cultures Reviewed with Dr Burks 03/20/24 Tmax 100.6. WBC 9K Will have nursing staff remove oldest IV Pending right foot I D scheduled for tomorrow Patient is currently on Ancef Reviewed with Dr. Burks 03/21/24 No further fevers, WBC 10K Pending right foot I D today Patient is currently on Ancef Reviewed with Dr. Burks 03/24 Patient status post 03/21/2024 complex I D right foot abscess, * cultures growing staph aureus Patient is currently on Ancef Recommend Ancef 6 g load continuous infusion via PICC with stop date 04/26/2024. Case management orders placed Recommendations from Dr. Burks 03/26/24 Patient has been afebrile, WBC 8K Patient is currently on Ancef Recommend Ancef 6 g load continuous infusion via PICC with stop date 04/26/2024. PICC line in place Pending discharge arrangements Reviewed with Dr. Burks 03/28/24 Patient has been afebrile, WBC 6K Patient is currently on Ancef Recommend Ancef 6 g load continuous infusion via PICC with stop date 04/26/2024 Pending discharge arrangements, possible IRF Reviewed with Dr. Burks Consultants: critical/draw bench operator helper at 0912 at 0128 RPT #:[id number] END OF [id number] 21:01:00 [facility] ([facility]) Critical Care Progress Note REPORT#:[id number] REPORT STATUS: Signed REPORT INITIALIZATION DATE:03/27/24 TIME: 2100 PATIENT: TSERING BRAUN UNIT #: [id number] ROOM/BED: D.D331-1 : 71 AGE: 54 SEX: F ATTEND: Pablo Mora MD ADM AUTHOR: Chapin Bar MD REPT SERVICE DT/TIME: 03/27/242100 * ALL edits or amendments must be made on the electronic/computer document * Subjective Chief complaint: right foot pain Review of Systems ROS Psych: Denies: homicidal ideation, suicidal ideation. All systems rev neg: except as marked Objective General VS/I O Last Documented: Result Date Time Pulse Ox 97 03/27 1943 B/P 100/62 03/27 1943 B/P Mean 74.8 03/27 1943 Temp 98.2 03/27 1943 Pulse 104 03/27 1943 Resp 16 03/27 1943 O2 Delivery Room air 03/25 0408 24 hour I O ending at 0700: 03/27 0700 03/26 1900 Intake Total Output Total 1600 Balance -1600 Output, Urine 1600 PATIENT WEIGHT: Weight (lb): 149 Weight (oz): 4.05 Weight (kg): 67.585 Medications: Active Meds + DC'd Last 24 Hrs Cefazolin Sodium (Cefazolin Sodium) 2 GM Q8H IV Sodium Chloride (NORMAL SALINE 10ML VIAL) 10 ML Docusate Sodium (COLACE 100MG CAPSULE) 100 MG BID PO Bisacodyl (DULCOLAX) 10 MG DAILY PRN PO Bisacodyl (DULCOLAX 10MG SUPPOSITORY) 10 MG DAILY PRN RECTAL Magnesium Hydroxide (MILK OF MAGNESIA) 30 ML Q12H PRN PRN PO Sodium Biphosphate/Sodium Phosphate (FLEET ENEMA) 1 BOT DAILY PRN PRN RECTAL (CKD) Tramadol HCl (ULTRAM 50MG TABLET) 50 MG Q6H PRN PRN PO Insulin Glargine (Lantus/Semglee) 15 UNIT Q12HR SUBQ Acetaminophen (TYLENOL 325MG TABLET) 650 MG Q4H PRN PRN PO Insulin Human Lispro (HumaLOG) 5 UNIT TID MEALS SUBQ Gabapentin (NEURONTIN 100MG CAPSULE) 100 MG TID PO Insulin Human Lispro (HumaLOG) AGGRESSIVE SLIDING SCALE (steroids, infection, resistant) AC HS 0200 SUBQ Dextrose (GLUCOSE) 16 GM ASDIR PRN PO Dextrose/Water (DEXTROSE 50% 50ML SYRINGE) 12.5 GM ASDIR PRN IV Ondansetron HCl (ZOFRAN 4 MG/2 ML) 4 MG Q4H PRN PRN IV Sodium Chloride (NORMAL SALINE 250ML IV BAG) 250 ML ASDIR PRN IV Physical Exam Ulcer: Type/cause: Dressing over right foot Results Findings/Data: Laboratory Tests 03/27/24 0230: [Embedded Image Not Available] Laboratory Tests 03/276 1539 1108 0522 0230 Chemistry Sodium (133 - 145 MMOL/L) 137 Potassium (3.6 - 5.2 MMOL/L) 4.0 Chloride (100 - 108 MMOL/L) 102 Carbon Dioxide (22 - 32 MMOL/L) 33 H BUN (6 - 20 MG/DL) 17 Creatinine (0.60 - 1.00 MG/DL) 0.45 L Estimated GFR (MDRD) (51 - 120) 115 Glucose (65 - 99 MG/DL) 177 H POC Glucose (65 - 99 MG/DL) 198 H 168 H 195 H 108 H Calcium (8.7 - 10.5 MG/DL) 8.3 L Magnesium (1.8 - 2.4 MG/DL) 2.0 03/27 0211 Chemistry POC Glucose (65 - 99 MG/DL) 170 H Laboratory Tests 03/27 0230 Hematology WBC (4.80 - 10.80 x10 3/uL) 6.63 RBC (4.2 - 5.4 x10 6/uL) 3.19 L Hgb (12.0 - 16.0 G/DL) 8.9 L Hct (37 - 47 %) 28.6 L MCV (81 - 99 FL) 89.7 MCH (27 - 31 PG) 27.9 MCHC (33 - 37 G/DL) 31.1 L RDW Coeff of Rupert (11.5 - 14.5 %) 12.4 Plt Count (150 - 450 x10 3/uL) 317 MPV (7.4 - 10.4 FL) 8.5 Neut % (Auto) (42 - 86 %) 62.8 Lymph % (Auto) (24 - 44 %) 29.6 [place] % (Auto) (0.0 - 4.0 %) 5.4 H Eos % (Auto) (0.0 - 2.7 %) 1.4 Baso % (Auto) (0.0 - 0.5 %) 0.3 Eos # (Auto) (0.0 - 0.5 x10 3/uL) 0.09 Baso # (Auto) (0.0 - 0.2 x10 3/uL) 0.02 Abs Immat Gran (auto) (0.00 - 0.03 x10 3/uL) 0.03 Absolute Neuts (auto) (1.8 - 7.7 x10 3/uL) 4.17 Absolute Lymphs (auto) (1.0 - 4.8 x10 3/uL) 1.96 Absolute Monos (auto) (0.0 - 0.8 x10 3/uL) 0.36 Absolute Nucleated RBC (0.0 - 0.2 X10 3/uL) 0.0 Immature Gran % (0.0 - 2.0 %) 0.5 Nucleated RBC % (0.0 - 0.0 %) 0.0 Diagnosis, Assessment Plan Free text A P: Acute renal failure Diabetic ketoacidosis Severe sepsis Right foot abscess Uncontrolled type 2 diabetes Normocytic anemia Hypokalemia Patient's mentation appears to be at baseline, no acute neuroconcerns She is saturating well on room air Hemodynamically stable, will continue to monitor closely Vasopressors as needed to maintain MAP greater than 65 Monitor renal function closely Strict I's and O's Avoid nephrotoxic medications Transitioned to basal bolus regimen Continue with antibiotics as per ID ID is following Tolerating a diet DVT prophylaxis GI prophylaxis CODE STATUS to full code Medical decision making: High complexity Continue assessment prior Consultants: critical/draw bench operator helper at 2101 RPT #:[id number] END OF [id number] 13:32:00 [facility] ([facility]) Hospitalist Progress Note REPORT#:[id number] REPORT STATUS: Signed REPORT INITIALIZATION DATE:03/27/24 TIME: 1331 PATIENT: TSERING BRAUN UNIT #: [id number] ROOM/BED: [place] [address] : 71 AGE: 54 SEX: F ATTEND: Pablo Mora MD ADM AUTHOR: Pablo Mora MD REPT SERVICE DT/TIME: 03/27/24 1332 * ALL edits or amendments must be made on the electronic/computer document * Subjective Chief complaint: Right foot pain HPI: 03/14/24 Patient seen today at bedside. No acute overnight events. Patient reports continued right foot pain. Denies fever, chills, chest pain, abdominal pain or dysuria. Patient reports: Yes: feeling better, pain controlled, resting comfortably. No: abdominal pain, chest pain, chills, constipation, fever, headache, nausea, shortness of breath, vomiting. Comments: No new complaints Review of Systems Free Text ROS Notes Free Text ROS Notes: Negative except for pertinent positives noted in HPI. Objective General VS/I O: Vital Signs: Date Time Temp Pulse Resp B/P B/P Pulse O2 O2 Flow FiO2 Mean Ox Delivery Rate 03/27 1119 98.4 100 18 122/76 91.3 98 03/27 0819 98.1 94 16 133/80 97.4 98 03/27 0332 98.2 96 97 03/27 0331 97 16 110/65 79.6 97 03/26 2359 98.2 93 16 100/62 74.7 97 03/26 2009 98.8 97 16 95/57 69.9 96 03/26 1551 98.6 93 12 102/60 74.2 97 24 hour I O ending at 0700: 03/27 0700 03/26 1900 Intake Total Output Total 1600 Balance -1600 Output, Urine 1600 PATIENT WEIGHT: Weight (lb): 149 Weight (oz): 4.05 Weight (kg): 67.585 Physical Exam General appearance: alert, awake, oriented, no acute distress, pleasant, conversational, mental status normal Head/Eyes: atraumatic, normocephalic ENT: moist mucosal membranes, normal dentition Neck: full range of motion, no JVD Cardiovascular: normal capillary refill, normal heart sounds, regular rate rhythm, no heave Respiratory: aerating well, clear to auscultation, symmetric expansion, no distress Abdomen: non-tender, soft, no distention Genitourinary: no flank pain, no urinary catheter Extremities: decreased range of motion, moves all Musculoskeletal: decreased ROM, no CVA tenderness Neuro/GATE SUPERVISOR: alert, oriented X 3, normal speech, no motor deficits Skin: dry, normal temperature Ulcer: Type/cause: Dressing over right foot Results Findings/Data: Laboratory Tests 03/27 03/27 03/27 03/27 03/26 1108 0522 0230 0211 2051 Chemistry Sodium (133 - 145 MMOL/L) 137 Potassium (3.6 - 5.2 MMOL/L) 4.0 Chloride (100 - 108 MMOL/L) 102 Carbon Dioxide (22 - 32 MMOL/L) 33 H BUN (6 - 20 MG/DL) 17 Creatinine (0.60 - 1.00 MG/DL) 0.45 L Estimated GFR (MDRD) (51 - 120) 115 Glucose (65 - 99 MG/DL) 177 H POC Glucose (65 - 99 MG/DL) 195 H 108 H 170 H 186 H Calcium (8.7 - 10.5 MG/DL) 8.3 L Magnesium (1.8 - 2.4 MG/DL) 2.0 03/26 1547 Chemistry POC Glucose (65 - 99 MG/DL) 115 H Laboratory Tests 03/27 0230 Hematology WBC (4.80 - 10.80 x10 3/uL) 6.63 RBC (4.2 - 5.4 x10 6/uL) 3.19 L Hgb (12.0 - 16.0 G/DL) 8.9 L Hct (37 - 47 %) 28.6 L MCV (81 - 99 FL) 89.7 MCH (27 - 31 PG) 27.9 MCHC (33 - 37 G/DL) 31.1 L RDW Coeff of Rupert (11.5 - 14.5 %) 12.4 Plt Count (150 - 450 x10 3/uL) 317 MPV (7.4 - 10.4 FL) 8.5 Neut % (Auto) (42 - 86 %) 62.8 Lymph % (Auto) (24 - 44 %) 29.6 [place] % (Auto) (0.0 - 4.0 %) 5.4 H Eos % (Auto) (0.0 - 2.7 %) 1.4 Baso % (Auto) (0.0 - 0.5 %) 0.3 Eos # (Auto) (0.0 - 0.5 x10 3/uL) 0.09 Baso # (Auto) (0.0 - 0.2 x10 3/uL) 0.02 Abs Immat Gran (auto) (0.00 - 0.03 x10 3/uL) 0.03 Absolute Neuts (auto) (1.8 - 7.7 x10 3/uL) 4.17 Absolute Lymphs (auto) (1.0 - 4.8 x10 3/uL) 1.96 Absolute Monos (auto) (0.0 - 0.8 x10 3/uL) 0.36 Absolute Nucleated RBC (0.0 - 0.2 X10 3/uL) 0.0 Immature Gran % (0.0 - 2.0 %) 0.5 Nucleated RBC % (0.0 - 0.0 %) 0.0 Diagnosis, Assessment Plan Consultants: critical/draw bench operator helper Code status: full code Plan discussed with: patient, nurse Free Text DxA P Notes Free text DxA P notes: Assessment and plan Right Foot Cellulitis and Abductor Longus Abscess -Rt foot XR Mild soft tissue swelling -CT RLE 2.3 x 0.8 x 0.8 cm abscess within the proximal abductor hallucis muscle in keeping with an abscess. Edema and phlegmon is seen within the adductor hallucis muscle without abscess. No evidence of osteomyelitis. -Patient currently on Ancef -Textile Machinery Instructor consulted, Dr. Mott. -s/p complex I D right foot abscess 03/21/24. Follow up culture. -ID consulted and recommends Ancef 6 g load continuous infusion via PICC with stop date 04/26/2024. Sepsis (POA) 2/2 above -Patient had episode of hypotension 03/21/24 evening after taking [place]. Received albumin 12.5 g IV and midodrine 5 mg PO once. Has dizziness, diaphoresis with hypotension to 86/49 while working with PT 03/22/24. -s/p NS 75 ml/hr x I -Monitor hemodynamic -BP is currently stable. Started tramadol and patient seems to tolerate. Diabetic ketoacidosis -Resolved Insulin-dependent type 2 diabetes mellitus poorly controlled with severe hyperglycemia (A1c 13.3) -Hemoglobin A1c 13.3 -Patient on Lantus 15 units sc q 12 hr, Humalog 5 units 3 times daily meals, and aggressive sliding scale -Continue with 2000 ADA diet Hypokalemia -K 3.5. KCl 20 mEq PO. -Monitor potassium daily and replace as indicated HTN -Patient currently normotensive on no medication Chronic anemia -Hemoglobin trending slowly downward, will monitor CBC daily. -Iron study compatible with AOCD. Normal vitamin B12 and folate. Moderate malnutrition -Hypoalbuminemia -Nutrition consulted. On supplements. Diet: 1999 ADA with Clarita MILLER Discussed with patient about goals of care. Explained in detail about the various categories of CODE STATUS. Answered all questions. Wishes are to proceed with FULL CODE STATUS. Advanced care planning performed for more than 16 minutes. Long conversation with patient and patient family at bedside regarding hospital course and plan. All questions answered. High complexity medical decision making Total care time spent was 68 minutes Disposition: Case management consulted for home IV ABx and home wound care. PT evaluated the patient and recommended IRF due to limited ambulation. Case management consulted for IRF. at 1333 RPT #:[id number] END OF [id number] 08:05:00 [facility] ([facility]) Infectious Dis. Progress Note REPORT#:[id number] REPORT STATUS: Signed REPORT INITIALIZATION DATE:03/27/24 TIME: 804 PATIENT: TSERING BRAUN UNIT #: [id number] ROOM/BED: D331-1 : 71 AGE: 54 SEX: F ATTEND: Garrett Rhodes DO ADM AUTHOR: Karey Granger REPT SERVICE DT/TIME: 03/27/24 0805 * ALL edits or amendments must be made on the electronic/computer document * Subjective HPI: Reason for consultation foot abscess and cellulitis. History of present illness Patient is 54-year-old female present to the hospital complains of pain redness swelling of her right foot with evidence of possible abscess. She did not recall how it started. Patient has foot neuropathy. Temperature was 104. Patient is on currently BKA admitted to the ICU with insulin drip. CT of the right lower extremity revealed 2.3 x 0.8 4.8 cm abscess. Patient is currently on vancomycin and Zosyn. Podiatry consult is currently pending I believe. Review of systems; : patient does not report any headaches or visual disturbances. Rest of the 10 systems are normal or as above. Reviewed all the labs CBC CMP all imaging studies and it systems analyst consultant notes and primary care physician notes. Objective General VS/I O: Vital Signs Date Temp Pulse Resp B/P B/P Mean Pulse Ox FiO2 03/26-03/27 98.2-98.8 91-97 12-16 93-110/57-65 69.9-79.6 96-98 Last Documented: Result Date Time Pulse Ox 97 03/27 332 Temp 98.2 03/27 332 Pulse 96 03/27 0332 B/P 110/65 03/27 0331 B/P Mean 79.6 03/27 0331 Resp 16 03/27 0331 O2 Delivery Room air 03/25 0408 Vital Signs: Date Time Temp Pulse Resp B/P B/P Pulse O2 O2 Flow FiO2 Mean Ox Delivery Rate 03/27 332 98.2 96 97 03/27 0331 97 16 110/65 79.6 97 03/26 2359 98.2 93 16 100/62 74.7 97 03/26 2009 98.8 97 16 95/57 69.9 96 03/26 1551 98.6 93 12 102/60 74.2 97 03/26 1130 98.2 91 14 93/62 72.4 98 24 hour I O ending at 0700: 03/27 0700 03/26 1900 Intake Total Output Total 1600 Balance -1600 Output, Urine 1600 PATIENT WEIGHT: Weight (lb): 149 Weight (oz): 4.05 Weight (kg): 67.585 Physical Exam General appearance: alert, awake, oriented Wound/incision: Location: R foot Site condition: dressing clean dry, dressing intact Cardiovascular: normal heart sounds Respiratory: aerating well, symmetric expansion, no distress Abdomen: non-tender, soft Genitourinary: no urinary catheter Extremities: moves all Neuro/GATE SUPERVISOR: alert, oriented X 3 Skin: no rash Ulcer: Type/cause: Dressing over right foot Psychiatry: normal affect, normal judgment/insight, normal mood Results Findings/Data: Laboratory Tests 03/27 03/27 03/27 03/26 03/26 0522 0230 0211 2 1547 Chemistry Sodium (133 - 145 MMOL/L) 137 Potassium (3.6 - 5.2 MMOL/L) 4.0 Chloride (100 - 108 MMOL/L) 102 Carbon Dioxide (22 - 32 MMOL/L) 33 H BUN (6 - 20 MG/DL) 17 Creatinine (0.60 - 1.00 MG/DL) 0.45 L Estimated GFR (MDRD) (51 - 120) 115 Glucose (65 - 99 MG/DL) 177 H POC Glucose (65 - 99 MG/DL) 108 H 170 H 186 H 115 H Calcium (8.7 - 10.5 MG/DL) 8.3 L Magnesium (1.8 - 2.4 MG/DL) 2.0 03/26 1127 Chemistry POC Glucose (65 - 99 MG/DL) 216 H Laboratory Tests 03/27 0230 Hematology WBC (4.80 - 10.80 x10 3/uL) 6.63 RBC (4.2 - 5.4 x10 6/uL) 3.19 L Hgb (12.0 - 16.0 G/DL) 8.9 L Hct (37 - 47 %) 28.6 L MCV (81 - 99 FL) 89.7 MCH (27 - 31 PG) 27.9 MCHC (33 - 37 G/DL) 31.1 L RDW Coeff of Rupert (11.5 - 14.5 %) 12.4 Plt Count (150 - 450 x10 3/uL) 317 MPV (7.4 - 10.4 FL) 8.5 Neut % (Auto) (42 - 86 %) 62.8 Lymph % (Auto) (24 - 44 %) 29.6 [place] % (Auto) (0.0 - 4.0 %) 5.4 H Eos % (Auto) (0.0 - 2.7 %) 1.4 Baso % (Auto) (0.0 - 0.5 %) 0.3 Eos # (Auto) (0.0 - 0.5 x10 3/uL) 0.09 Baso # (Auto) (0.0 - 0.2 x10 3/uL) 0.02 Abs Immat Gran (auto) (0.00 - 0.03 x10 3/uL) 0.03 Absolute Neuts (auto) (1.8 - 7.7 x10 3/uL) 4.17 Absolute Lymphs (auto) (1.0 - 4.8 x10 3/uL) 1.96 Absolute Monos (auto) (0.0 - 0.8 x10 3/uL) 0.36 Absolute Nucleated RBC (0.0 - 0.2 X10 3/uL) 0.0 Immature Gran % (0.0 - 2.0 %) 0.5 Nucleated RBC % (0.0 - 0.0 %) 0.0 Diagnosis, Assessment Plan Free Text A P: Assessment Patient is 54-year-old female present to the hospital complains of pain redness swelling of her right foot with evidence of possible abscess. She did not recall how it started. Patient has foot neuropathy. Temperature was 104. Patient is on currently BKA admitted to the ICU with insulin drip. CT of the right lower extremity revealed 2.3 x 0.8 4.8 cm abscess. Patient is currently on vancomycin and Zosyn. Podiatry consult is currently pending I believe. Plan At this time continue with IV vancomycin and Zosyn. Podiatry consultation for possible abscess drainage. Will follow and make further recommendations based on culture results. Thank you for the consultation. 03/14/24 transferred to [facility] floor 03/13 febrile Tmax 103.1; will continue to follow temperature curve with leukocytosis of 16k; will follow on room air; no acute distress noted reports she believes blister ruptured; dressing to R foot c,d,i - wound care notified reports pain to R foot controlled at this time blood cultures 03/12 negative so far; will follow urine cultures 03/13 Staph aureus will change antibiotic to IV Cefazolin monitor for antibiotic related adverse effects pending transfer to [facility] for podiatry evaluation will continue to follow clinically Recommendations per Dr Burks 03/17 -pending I D of abscess on 03/19 blood cultures 03/12 NGTD urine cultures 03/13 Staph aureus Cont. on IV Cefazolin monitor for antibiotic related adverse effects pending podiatry evaluation will continue to follow clinically Reviewed with Dr Burks 03/18/24 Patient remains afebrile, WBC 11 K Patient reports 1 loose bowel movement this morning, will follow blood cultures 03/12 NGTD urine cultures 03/13 Staph aureus Cont. on IV Cefazolin monitor for antibiotic related adverse effects Pending I D of abscess tomorrow; please send cultures Reviewed with Dr Burks 03/19/24 Patient remains afebrile, WBC 11 K Patient denies diarrhea blood cultures 03/12 no growth final urine cultures 03/13 Staph aureus Cont. on IV Cefazolin monitor for antibiotic related adverse effects Pending I D of abscess today please send cultures Reviewed with Dr Burks 03/20/24 Tmax 100.6. WBC 9K Will have nursing staff remove oldest IV Pending right foot I D scheduled for tomorrow Patient is currently on Ancef Reviewed with Dr. Burks 03/21/24 No further fevers, WBC 10K Pending right foot I D today Patient is currently on Ancef Reviewed with Dr. Burks 03/24 Patient status post 03/21/2024 complex I D right foot abscess, * cultures growing staph aureus Patient is currently on Ancef Recommend Ancef 6 g load continuous infusion via PICC with stop date 04/26/2024. Case management orders placed Recommendations from Dr. Burks 03/26/24 Patient has been afebrile, WBC 8K Patient is currently on Ancef Recommend Ancef 6 g load continuous infusion via PICC with stop date 04/26/2024. PICC line in place Pending discharge arrangements Reviewed with Dr. Burks 03/27/24 Patient has been afebrile, WBC 6K Patient is currently on Ancef Recommend Ancef 6 g load continuous infusion via PICC with stop date 04/26/2024 Pending discharge arrangements, possible IRF Reviewed with Dr. Burks Consultants: critical/draw bench operator helper at 1224 at 0127 RPT #:[id number] END OF [id number] 18:58:00 [facility] ([facility]) Critical Care Progress Note REPORT#:[id number] REPORT STATUS: Signed REPORT INITIALIZATION DATE:03/26/24 TIME: 1857 PATIENT: TSERING BRAUN UNIT #: [id number] ROOM/BED: [address] : 71 AGE: 54 SEX: F ATTEND: Meagan Bowen MD ADM AUTHOR: Chapin Bar MD REPT SERVICE DT/TIME: 03/26/241857 * ALL edits or amendments must be made on the electronic/computer document * Subjective Chief complaint: right foot pain Review of Systems ROS Psych: Denies: homicidal ideation, suicidal ideation. All systems rev neg: except as marked Objective General VS/I O Last Documented: Result Date Time Pulse Ox 97 03/26 1551 B/P 102/60 03/26 1551 B/P Mean 74.2 03/26 1551 Temp 98.6 03/26 1551 Pulse 93 03/26 1551 Resp 12 03/26 1551 O2 Delivery Room air 03/25 0408 24 hour I O ending at 0700: 03/26 0700 03/25 1900 Intake Total Output Total 1700 Balance -1700 Number 3 Bowel Movements Number Voids 3 2 Output, Urine 1700 PATIENT WEIGHT: Weight (lb): 149 Weight (oz): 4.05 Weight (kg): 67.585 Medications: Active Meds + DC'd Last 24 Hrs Potassium Chloride (K-DUR) 20 MEQ ONCE ONE PO (DC) Cefazolin Sodium (Cefazolin Sodium) 2 GM Q8H IV Sodium Chloride (NORMAL SALINE 10ML VIAL) 10 ML Docusate Sodium (COLACE 100MG CAPSULE) 100 MG BID PO Bisacodyl (DULCOLAX) 10 MG DAILY PRN PO Bisacodyl (DULCOLAX 10MG SUPPOSITORY) 10 MG DAILY PRN RECTAL Magnesium Hydroxide (MILK OF MAGNESIA) 30 ML Q12H PRN PRN PO Sodium Biphosphate/Sodium Phosphate (FLEET ENEMA) 1 BOT DAILY PRN PRN RECTAL (CKD) Tramadol HCl (ULTRAM 50MG TABLET) 50 MG Q6H PRN PRN PO Insulin Glargine (Lantus/Semglee) 15 UNIT Q12HR SUBQ Acetaminophen (TYLENOL 325MG TABLET) 650 MG Q4H PRN PRN PO Insulin Human Lispro (HumaLOG) 5 UNIT TID MEALS SUBQ Gabapentin (NEURONTIN 100MG CAPSULE) 100 MG TID PO Insulin Human Lispro (HumaLOG) AGGRESSIVE SLIDING SCALE (steroids, infection, resistant) AC HS 0200 SUBQ Dextrose (GLUCOSE) 16 GM ASDIR PRN PO Dextrose/Water (DEXTROSE 50% 50ML SYRINGE) 12.5 GM ASDIR PRN IV Ondansetron HCl (ZOFRAN 4 MG/2 ML) 4 MG Q4H PRN PRN IV Sodium Chloride (NORMAL SALINE 250ML IV BAG) 250 ML ASDIR PRN IV Results Findings/Data: Laboratory Tests 03/26/24 0233: [Embedded Image Not Available] Laboratory Tests 03/26 03/26 03/26 03/26 03/26 1547 1127 0526 0233 0205 Chemistry Sodium (133 - 145 MMOL/L) 135 Potassium (3.6 - 5.2 MMOL/L) 3.5 L Chloride (100 - 108 MMOL/L) 101 Carbon Dioxide (22 - 32 MMOL/L) 33 H BUN (6 - 20 MG/DL) 17 Creatinine (0.60 - 1.00 MG/DL) 0.44 L Estimated GFR (MDRD) (51 - 120) 116 Glucose (65 - 99 MG/DL) 122 H POC Glucose (65 - 99 MG/DL) 115 H 216 H 112 H 113 H Calcium (8.7 - 10.5 MG/DL) 7.8 L Magnesium (1.8 - 2.4 MG/DL) 2.0 03/25 2018 Chemistry POC Glucose (65 - 99 MG/DL) 170 H Laboratory Tests 03/26 233 Hematology WBC (4.80 - 10.80 x10 3/uL) 8.29 RBC (4.2 - 5.4 x10 6/uL) 2.94 L Hgb (12.0 - 16.0 G/DL) 8.3 L Hct (37 - 47 %) 26.3 L MCV (81 - 99 FL) 89.5 MCH (27 - 31 PG) 28.2 MCHC (33 - 37 G/DL) 31.6 L RDW Coeff of Rupert (11.5 - 14.5 %) 12.1 Plt Count (150 - 450 x10 3/uL) 311 MPV (7.4 - 10.4 FL) 8.4 Neut % (Auto) (42 - 86 %) 63.5 Lymph % (Auto) (24 - 44 %) 29.3 [place] % (Auto) (0.0 - 4.0 %) 5.5 H Eos % (Auto) (0.0 - 2.7 %) 1.1 Baso % (Auto) (0.0 - 0.5 %) 0.1 Eos # (Auto) (0.0 - 0.5 x10 3/uL) 0.09 Baso # (Auto) (0.0 - 0.2 x10 3/uL) 0.01 Abs Immat Gran (auto) (0.00 - 0.03 x10 3/uL) 0.04 H Absolute Neuts (auto) (1.8 - 7.7 x10 3/uL) 5.26 Absolute Lymphs (auto) (1.0 - 4.8 x10 3/uL) 2.43 Absolute Monos (auto) (0.0 - 0.8 x10 3/uL) 0.46 Absolute Nucleated RBC (0.0 - 0.2 X10 3/uL) 0.0 Immature Gran % (0.0 - 2.0 %) 0.5 Nucleated RBC % (0.0 - 0.0 %) 0.0 Results: labs reviewed, vital signs stable, x-ray personally reviewed, current med profile rev'd Free Text Obj Notes Free Text Obj Notes: Head/eyes: atraumatic, clear cornea, PERRLA ENT: dry mucosal membrane, poor dentition Neck: full range of motion, non-tender, no JVD, no masses or swelling Cardiovascular: normal capillary refill, normal heart sounds, regular rate and rhythm, normal S1/S2, no ectopy Respiratory: aerating well, clear to auscultation, symmetric expansion, no distress Abdomen: soft, non-tender Genitourinary: no bladder distention, no flank pain, no urinary catheter Extremities: edema (to RLE), moves all, normal capillary refill, normal range of motion, no calf tenderness, no clubbing, no cyanosis Musculoskeletal normal inspection, painless range of motion Neuro/GATE SUPERVISOR: alert, oriented X 3, normal speech, reflexes equal bilat, no motor deficits, no sensory deficits Skin: abscess (to right foot), dry, intact, normal color, normal temperature, no rash Ulcer: Type/cause: Dressing over right foot Wound/incision: Location: right foot blister Site condition: no drainage Psychiatry: normal affect, normal judgment/insight, normal mood, not homicidal, not suicidal, no hallucinations Diagnosis, Assessment Plan Free text A P: Acute renal failure Diabetic ketoacidosis Severe sepsis Right foot abscess Uncontrolled type 2 diabetes Normocytic anemia Hypokalemia Patient's mentation appears to be at baseline, no acute neuroconcerns She is saturating well on room air Hemodynamically stable, will continue to monitor closely Vasopressors as needed to maintain MAP greater than 65 Monitor renal function closely Strict I's and O's Avoid nephrotoxic medications Transitioned to basal bolus regimen Continue with antibiotics as per ID ID is following Tolerating a diet DVT prophylaxis GI prophylaxis CODE STATUS to full code Medical decision making: High complexity Continue assessment prior at 1859 RPT #:[id number] END OF [id number] 10:04:00 [facility] ([facility]) Hospitalist Progress Note REPORT#:[id number] REPORT STATUS: Signed REPORT INITIALIZATION DATE:03/26/24 TIME: 1004 PATIENT: TSERING BRAUN UNIT #: [id number] ROOM/BED: [facility] : 71 AGE: 54 SEX: F ATTEND: Meagan Bowen MD ADM AUTHOR: Meagan Bowen MD REPT SERVICE DT/TIME: 03/26/24 1004 * ALL edits or amendments must be made on the electronic/computer document * Subjective Chief complaint: Right foot pain HPI: 03/14/24 Patient seen today at bedside. No acute overnight events. Patient reports continued right foot pain. Denies fever, chills, chest pain, abdominal pain or dysuria. Comments: Patient is seen and examined. Resting in bed. No complaint. Review of Systems All systems rev neg: except as noted Free Text ROS Notes Free Text ROS Notes: Negative except for pertinent positives noted in HPI. Objective General VS/I O: Vital Signs: Date Time Temp Pulse Resp B/P B/P Pulse O2 O2 Flow FiO2 Mean Ox Delivery Rate 03/26 1130 36.8 91 14 93/62 72.4 98 03/26 0800 36.9 92 1 132/81 97.7 99 03/26 0324 36.8 85 16 100/62 74.3 96 03/25 2329 36.7 100 16 97/60 72.4 97 03/25 2018 36.7 101 16 98/62 0.0 96 03/25 1603 37.0 104 12 127/77 93.7 100 24 hour I O ending at 0700: 03/26 0700 06/24 1900 Intake Total Output Total 1700 Balance -1700 Number 3 Bowel Movements Number Voids 3 2 Output, Urine 1700 PATIENT WEIGHT: Weight (lb): 149 Weight (oz): 4.05 Weight (kg): 67.585 Medications: Active Meds + DC'd Last 24 Hrs Potassium Chloride (K-DUR) 20 MEQ ONCE ONE PO (DC) Cefazolin Sodium (Cefazolin Sodium) 2 GM Q8H IV Sodium Chloride (NORMAL SALINE 10ML VIAL) 10 ML Docusate Sodium (COLACE 100MG CAPSULE) 100 MG BID PO Bisacodyl (DULCOLAX) 10 MG DAILY PRN PO Bisacodyl (DULCOLAX 10MG SUPPOSITORY) 10 MG DAILY PRN RECTAL Magnesium Hydroxide (MILK OF MAGNESIA) 30 ML Q12H PRN PRN PO Sodium Biphosphate/Sodium Phosphate (FLEET ENEMA) 1 BOT DAILY PRN PRN RECTAL (CKD) Tramadol HCl (ULTRAM 50MG TABLET) 50 MG Q6H PRN PRN PO Insulin Glargine (Lantus/Semglee) 15 UNIT Q12HR SUBQ Acetaminophen (TYLENOL 325MG TABLET) 650 MG Q4H PRN PRN PO Insulin Human Lispro (HumaLOG) 5 UNIT TID MEALS SUBQ Gabapentin (NEURONTIN 100MG CAPSULE) 100 MG TID PO Insulin Human Lispro (HumaLOG) AGGRESSIVE SLIDING SCALE (steroids, infection, resistant) AC HS 0200 SUBQ Dextrose (GLUCOSE) 16 GM ASDIR PRN PO Dextrose/Water (DEXTROSE 50% 50ML SYRINGE) 12.5 GM ASDIR PRN IV Ondansetron HCl (ZOFRAN 4 MG/2 ML) 4 MG Q4H PRN PRN IV Sodium Chloride (NORMAL SALINE 250ML IV BAG) 250 ML ASDIR PRN IV Physical Exam General appearance: alert, awake, oriented Head/Eyes: atraumatic, normocephalic ENT: moist mucosal membranes, normal dentition Neck: full range of motion, no JVD Cardiovascular: normal capillary refill, normal heart sounds, regular rate rhythm, no heave Respiratory: aerating well, clear to auscultation, symmetric expansion, no distress Abdomen: non-tender, soft, no distention Genitourinary: no flank pain, no urinary catheter Extremities: decreased range of motion, moves all Musculoskeletal: decreased ROM, no CVA tenderness Neuro/GATE SUPERVISOR: alert, oriented X 3, normal speech, no motor deficits Skin: dry, normal temperature Ulcer: Type/cause: Dressing over right foot Results Findings/Data: Laboratory Tests 03/26 03/26 03/26 03/26 03/25 1127 0526 0233 204 2017 Chemistry Sodium (133 - 145 MMOL/L) 135 Potassium (3.6 - 5.2 MMOL/L) 3.5 L Chloride (100 - 108 MMOL/L) 101 Carbon Dioxide (22 - 32 MMOL/L) 33 H BUN (6 - 20 MG/DL) 17 Creatinine (0.60 - 1.00 MG/DL) 0.44 L Estimated GFR (MDRD) (51 - 120) 116 Glucose (65 - 99 MG/DL) 122 H POC Glucose (65 - 99 MG/DL) 216 H 112 H 113 H 170 H Calcium (8.7 - 10.5 MG/DL) 7.8 L Magnesium (1.8 - 2.4 MG/DL) 2.0 03/25 1546 Chemistry POC Glucose (65 - 99 MG/DL) 222 H Laboratory Tests 03/26 0233 Hematology WBC (4.80 - 10.80 x10 3/uL) 8.29 RBC (4.2 - 5.4 x10 6/uL) 2.94 L Hgb (12.0 - 16.0 G/DL) 8.3 L Hct (37 - 47 %) 26.3 L MCV (81 - 99 FL) 89.5 MCH (27 - 31 PG) 28.2 MCHC (33 - 37 G/DL) 31.6 L RDW Coeff of Rupert (11.5 - 14.5 %) 12.1 Plt Count (150 - 450 x10 3/uL) 311 MPV (7.4 - 10.4 FL) 8.4 Neut % (Auto) (42 - 86 %) 63.5 Lymph % (Auto) (24 - 44 %) 29.3 [place] % (Auto) (0.0 - 4.0 %) 5.5 H Eos % (Auto) (0.0 - 2.7 %) 1.1 Baso % (Auto) (0.0 - 0.5 %) 0.1 Eos # (Auto) (0.0 - 0.5 x10 3/uL) 0.09 Baso # (Auto) (0.0 - 0.2 x10 3/uL) 0.01 Abs Immat Gran (auto) (0.00 - 0.03 x10 3/uL) 0.04 H Absolute Neuts (auto) (1.8 - 7.7 x10 3/uL) 5.26 Absolute Lymphs (auto) (1.0 - 4.8 x10 3/uL) 2.43 Absolute Monos (auto) (0.0 - 0.8 x10 3/uL) 0.46 Absolute Nucleated RBC (0.0 - 0.2 X10 3/uL) 0.0 Immature Gran % (0.0 - 2.0 %) 0.5 Nucleated RBC % (0.0 - 0.0 %) 0.0 Diagnosis, Assessment Plan Consultants: critical/draw bench operator helper Free Text DxA P Notes Free text DxA P notes: Assessment and plan Right Foot Cellulitis and Abductor Longus Abscess -Rt foot XR Mild soft tissue swelling -CT RLE 2.3 x 0.8 x 0.8 cm abscess within the proximal abductor hallucis muscle in keeping with an abscess. Edema and phlegmon is seen within the adductor hallucis muscle without abscess. No evidence of osteomyelitis. -Patient currently on Ancef -Textile Machinery Instructor consulted, Dr. Mott. -s/p complex I D right foot abscess 03/21/24. Follow up culture. -ID consulted and recommends Ancef 6 g load continuous infusion via PICC with stop date 04/26/2024. Sepsis (POA) 2/2 above -Patient had episode of hypotension 03/21/24 evening after taking [place]. Received albumin 12.5 g IV and midodrine 5 mg PO once. Has dizziness, diaphoresis with hypotension to 86/49 while working with PT 03/22/24. -s/p NS 75 ml/hr x I -Monitor hemodynamic -BP is currently stable. Started tramadol and patient seems to tolerate. Diabetic ketoacidosis -Resolved Insulin-dependent type 2 diabetes mellitus poorly controlled with severe hyperglycemia (A1c 13.3) -Hemoglobin A1c 13.3 -Patient on Lantus 15 units sc q 12 hr, Humalog 5 units 3 times daily meals, and aggressive sliding scale -Continue with 2000 ADA diet Hypokalemia -K 3.5. KCl 20 mEq PO. -Monitor potassium daily and replace as indicated HTN -Patient currently normotensive on no medication Chronic anemia -Hemoglobin trending slowly downward, will monitor CBC daily. -Iron study compatible with AOCD. Normal vitamin B12 and folate. Moderate malnutrition -Hypoalbuminemia -Nutrition consulted. On supplements. Diet: 1999 ADA with Clarita MILLER Discussed with patient about goals of care. Explained in detail about the various categories of CODE STATUS. Answered all questions. Wishes are to proceed with FULL CODE STATUS. Advanced care planning performed for more than 16 minutes. Long conversation with patient and patient family at bedside regarding hospital course and plan. All questions answered. High complexity medical decision making Total care time spent was 68 minutes Disposition: Case management consulted for home IV ABx and home wound care. PT evaluated the patient and recommended IRF due to limited ambulation. Case management consulted for IRF. at 1512 RPT #:[id number] END OF [id number] 08:25:00 [facility] ([facility]) Infectious Dis. Progress Note REPORT#:[id number] REPORT STATUS: Signed REPORT INITIALIZATION DATE:03/26/24 TIME: 824 PATIENT: TSERING BRAUN UNIT #: [id number] ROOM/BED: [facility]311 : 71 AGE: 54 SEX: F ATTEND: Garrett Rhodes DO ADM AUTHOR: Karey Granger REPT SERVICE DT/TIME: 03/26/24 08 * ALL edits or amendments must be made on the electronic/computer document * Subjective HPI: Reason for consultation foot abscess and cellulitis. History of present illness Patient is 54-year-old female present to the hospital complains of pain redness swelling of her right foot with evidence of possible abscess. She did not recall how it started. Patient has foot neuropathy. Temperature was 104. Patient is on currently BKA admitted to the ICU with insulin drip. CT of the right lower extremity revealed 2.3 x 0.8 4.8 cm abscess. Patient is currently on vancomycin and Zosyn. Podiatry consult is currently pending I believe. Review of systems; : patient does not report any headaches or visual disturbances. Rest of the 10 systems are normal or as above. Reviewed all the labs CBC CMP all imaging studies and it systems analyst consultant notes and primary care physician notes. Objective General VS/I O: Vital Signs Date Temp Pulse Resp B/P B/P Mean Pulse Ox FiO2 03/25-03/26 98.1-98.6 85-104 1-16 97-138/60-81 0.0-99.5 96-100 Last Documented: Result Date Time Pulse Ox 99 03/26 0800 B/P 132/81 03/26 0800 B/P Mean 97.7 03/26 0800 Temp 98.4 03/26 0800 Pulse 92 03/26 0800 Resp 1 03/26 0800 O2 Delivery Room air 03/25 0408 Vital Signs: Date Time Temp Pulse Resp B/P B/P Pulse O2 O2 Flow FiO2 Mean Ox Delivery Rate 03/26 08 98.4 92 1 132/81 97.7 99 03/26 0324 98.2 85 16 100/62 74.3 96 03/25 2329 98.1 100 16 97/60 72.4 97 03/25 2018 98.1 101 16 98/62 0.0 96 03/25 1603 98.6 104 12 127/77 93.7 100 03/25 1119 98.6 99 16 138/80 99.5 99 24 hour I O ending at 0700: 03/26 0700 03/25 1900 Intake Total Output Total 1700 Balance -1700 Number 3 Bowel Movements Number Voids 3 2 Output, Urine 1700 PATIENT WEIGHT: Weight (lb): 149 Weight (oz): 4.05 Weight (kg): 67.585 Physical Exam General appearance: sleeping comfortably Wound/incision: Location: R foot Site condition: dressing clean dry, dressing intact Cardiovascular: normal heart sounds Respiratory: aerating well, symmetric expansion, no distress Abdomen: non-tender, soft Genitourinary: no urinary catheter Extremities: moves all Neuro/GATE SUPERVISOR: alert, oriented X 3 Skin: no rash Ulcer: Type/cause: Dressing over right foot Psychiatry: normal affect, normal judgment/insight, normal mood Results Findings/Data: Laboratory Tests 03/2620 3 204 2017 1546 Chemistry Sodium (133 - 145 MMOL/L) 135 Potassium (3.6 - 5.2 MMOL/L) 3.5 L Chloride (100 - 108 MMOL/L) 101 Carbon Dioxide (22 - 32 MMOL/L) 33 H BUN (6 - 20 MG/DL) 17 Creatinine (0.60 - 1.00 MG/DL) 0.44 L Estimated GFR (MDRD) (51 - 120) 116 Glucose (65 - 99 MG/DL) 122 H POC Glucose (65 - 99 MG/DL) 112 H 113 H 170 H 222 H Calcium (8.7 - 10.5 MG/DL) 7.8 L Magnesium (1.8 - 2.4 MG/DL) 2.0 03/25 1113 Chemistry POC Glucose (65 - 99 MG/DL) 165 H Laboratory Tests 03/26 0233 Hematology WBC (4.80 - 10.80 x10 3/uL) 8.29 RBC (4.2 - 5.4 x10 6/uL) 2.94 L Hgb (12.0 - 16.0 G/DL) 8.3 L Hct (37 - 47 %) 26.3 L MCV (81 - 99 FL) 89.5 MCH (27 - 31 PG) 28.2 MCHC (33 - 37 G/DL) 31.6 L RDW Coeff of Rupert (11.5 - 14.5 %) 12.1 Plt Count (150 - 450 x10 3/uL) 311 MPV (7.4 - 10.4 FL) 8.4 Neut % (Auto) (42 - 86 %) 63.5 Lymph % (Auto) (24 - 44 %) 29.3 [place] % (Auto) (0.0 - 4.0 %) 5.5 H Eos % (Auto) (0.0 - 2.7 %) 1.1 Baso % (Auto) (0.0 - 0.5 %) 0.1 Eos # (Auto) (0.0 - 0.5 x10 3/uL) 0.09 Baso # (Auto) (0.0 - 0.2 x10 3/uL) 0.01 Abs Immat Gran (auto) (0.00 - 0.03 x10 3/uL) 0.04 H Absolute Neuts (auto) (1.8 - 7.7 x10 3/uL) 5.26 Absolute Lymphs (auto) (1.0 - 4.8 x10 3/uL) 2.43 Absolute Monos (auto) (0.0 - 0.8 x10 3/uL) 0.46 Absolute Nucleated RBC (0.0 - 0.2 X10 3/uL) 0.0 Immature Gran % (0.0 - 2.0 %) 0.5 Nucleated RBC % (0.0 - 0.0 %) 0.0 Diagnosis, Assessment Plan Free Text A P: Assessment Patient is 54-year-old female present to the hospital complains of pain redness swelling of her right foot with evidence of possible abscess. She did not recall how it started. Patient has foot neuropathy. Temperature was 104. Patient is on currently BKA admitted to the ICU with insulin drip. CT of the right lower extremity revealed 2.3 x 0.8 4.8 cm abscess. Patient is currently on vancomycin and Zosyn. Podiatry consult is currently pending I believe. Plan At this time continue with IV vancomycin and Zosyn. Podiatry consultation for possible abscess drainage. Will follow and make further recommendations based on culture results. Thank you for the consultation. 03/14/24 transferred to [facility] floor 03/13 febrile Tmax 103.1; will continue to follow temperature curve with leukocytosis of 16k; will follow on room air; no acute distress noted reports she believes blister ruptured; dressing to R foot c,d,i - wound care notified reports pain to R foot controlled at this time blood cultures 03/12 negative so far; will follow urine cultures 03/13 Staph aureus will change antibiotic to IV Cefazolin monitor for antibiotic related adverse effects pending transfer to [facility] for podiatry evaluation will continue to follow clinically Recommendations per Dr Burks 03/17 -pending I D of abscess on 03/19 blood cultures 03/12 NGTD urine cultures 03/13 Staph aureus Cont. on IV Cefazolin monitor for antibiotic related adverse effects pending podiatry evaluation will continue to follow clinically Reviewed with Dr Burks 03/18/24 Patient remains afebrile, WBC 11 K Patient reports 1 loose bowel movement this morning, will follow blood cultures 03/12 NGTD urine cultures 03/13 Staph aureus Cont. on IV Cefazolin monitor for antibiotic related adverse effects Pending I D of abscess tomorrow; please send cultures Reviewed with Dr Burks 03/19/24 Patient remains afebrile, WBC 11 K Patient denies diarrhea blood cultures 03/12 no growth final urine cultures 03/13 Staph aureus Cont. on IV Cefazolin monitor for antibiotic related adverse effects Pending I D of abscess today please send cultures Reviewed with Dr Burks 03/20/24 Tmax 100.6. WBC 9K Will have nursing staff remove oldest IV Pending right foot I D scheduled for tomorrow Patient is currently on Ancef Reviewed with Dr. Burks 03/21/24 No further fevers, WBC 10K Pending right foot I D today Patient is currently on Ancef Reviewed with Dr. Burks 03/24 Patient status post 03/21/2024 complex I D right foot abscess, * cultures growing staph aureus Patient is currently on Ancef Recommend Ancef 6 g load continuous infusion via PICC with stop date 04/26/2024. Case management orders placed Recommendations from Dr. Burks 03/26/24 Patient has been afebrile, WBC 8K Patient is currently on Ancef Recommend Ancef 6 g load continuous infusion via PICC with stop date 04/26/2024. PICC line in place Pending discharge arrangements Reviewed with Dr. Burks Consultants: critical/draw bench operator helper at 1036 at 0126 RPT #:[id number] END OF [id number] 13:48:00 [facility] ([facility]) Critical Care Progress Note REPORT#:[id number] REPORT STATUS: Signed REPORT INITIALIZATION DATE:03/25/24 TIME: 1347 PATIENT: TSERING BRAUN UNIT #: [id number] ROOM/BED: [facility]31-1 : 71 AGE: 54 SEX: F ATTEND: Meagan Bowen MD ADM AUTHOR: THAD ROLDAN DO R4 REPT SERVICE DT/TIME: 03/25/24 1348 * ALL edits or amendments must be made on the electronic/computer document * Thad Roldan 03/25/24 1348: Subjective Chief complaint: right foot pain HPI: Patient seen and examined at bedside. No acute events overnight. Review of Systems Free Text ROS Notes Free Text ROS Notes: 14 point ROS completed and negative unless noted otherwise Objective General VS/I O Last Documented: Result Date Time Pulse Ox 99 03/25 1119 B/P 138/80 03/25 1119 B/P Mean 99.5 03/25 1119 Temp 98.6 03/25 1119 Pulse 99 03/25 1119 Resp 16 03/25 1119 O2 Delivery Room air 03/25 0408 24 hour I O ending at 0700: 03/25 0700 03/24 1900 Intake Total 900 Output Total 1850 Balance -950 Intake, Oral 900 Output, Urine 1850 PATIENT WEIGHT: Weight (lb): 149 Weight (oz): 4.05 Weight (kg): 67.585 Physical Exam Head/eyes: atraumatic, clear cornea, PERRLA ENT: dry mucosal membrane, poor dentition Neck: full range of motion, non-tender, no JVD, no masses or swelling Cardiovascular: normal capillary refill, normal heart sounds, regular rate and rhythm, normal S1/S2, no ectopy Respiratory: aerating well, clear to auscultation, symmetric expansion, no distress Abdomen: soft, non-tender Genitourinary: no bladder distention, no flank pain, no urinary catheter Extremities: edema (to RLE), moves all, normal capillary refill, normal range of motion, no calf tenderness, no clubbing, no cyanosis Musculoskeletal normal inspection, painless range of motion Neuro/GATE SUPERVISOR: alert, oriented X 3, normal speech, reflexes equal bilat, no motor deficits, no sensory deficits Skin: abscess (to right foot), dry, intact, normal color, normal temperature, no rash Ulcer: Type/cause: Dressing over right foot Wound/incision: Location: right foot blister Site condition: no drainage Psychiatry: normal affect, normal judgment/insight, normal mood, not homicidal, not suicidal, no hallucinations Results Findings/data: Laboratory Tests 03/25 03/25 03/25 03/24 03/24 1113 0240 5187 2000 1715 Chemistry Sodium (133 - 145 MMOL/L) 137 Potassium (3.6 - 5.2 MMOL/L) 3.9 Chloride (100 - 108 MMOL/L) 101 Carbon Dioxide (22 - 32 MMOL/L) 36 H BUN (6 - 20 MG/DL) 16 Creatinine (0.60 - 1.00 MG/DL) 0.54 L Estimated GFR (MDRD) (51 - 120) 110 Glucose (65 - 99 MG/DL) 183 H POC Glucose (65 - 99 MG/DL) 165 H 175 H 123 H 206 H Calcium (8.7 - 10.5 MG/DL) 8.0 L Magnesium (1.8 - 2.4 MG/DL) 2.2 Laboratory Tests 03/25 0248 Hematology WBC (4.80 - 10.80 x10 3/uL) 8.51 RBC (4.2 - 5.4 x10 6/uL) 3.02 L Hgb (12.0 - 16.0 G/DL) 8.4 L Hct (37 - 47 %) 27.3 L MCV (81 - 99 FL) 90.4 MCH (27 - 31 PG) 27.8 MCHC (33 - 37 G/DL) 30.8 L RDW Coeff of Rupert (11.5 - 14.5 %) 12.3 Plt Count (150 - 450 x10 3/uL) 310 MPV (7.4 - 10.4 FL) 8.3 Neut % (Auto) (42 - 86 %) 65.5 Lymph % (Auto) (24 - 44 %) 26.9 [place] % (Auto) (0.0 - 4.0 %) 5.8 H Eos % (Auto) (0.0 - 2.7 %) 1.1 Baso % (Auto) (0.0 - 0.5 %) 0.2 Eos # (Auto) (0.0 - 0.5 x10 3/uL) 0.09 Baso # (Auto) (0.0 - 0.2 x10 3/uL) 0.02 Abs Immat Gran (auto) (0.00 - 0.03 x10 3/uL) 0.04 H Absolute Neuts (auto) (1.8 - 7.7 x10 3/uL) 5.58 Absolute Lymphs (auto) (1.0 - 4.8 x10 3/uL) 2.29 Absolute Monos (auto) (0.0 - 0.8 x10 3/uL) 0.49 Absolute Nucleated RBC (0.0 - 0.2 X10 3/uL) 0.0 Immature Gran % (0.0 - 2.0 %) 0.5 Nucleated RBC % (0.0 - 0.0 %) 0.0 Laboratory Tests 03/25/24 0248: [Embedded Image Not Available] Diagnosis, Assessment Plan Free text A P: Acute renal failure Diabetic ketoacidosis Severe sepsis Right foot abscess Uncontrolled type 2 diabetes Normocytic anemia Hypokalemia Patient's mentation appears to be at baseline, no acute neuroconcerns She is saturating well on room air Hemodynamically stable, will continue to monitor closely Vasopressors as needed to maintain MAP greater than 65 Monitor renal function closely Strict I's and O's Avoid nephrotoxic medications Transitioned to basal bolus regimen Continue with antibiotics as per ID ID is following Tolerating a diet DVT prophylaxis GI prophylaxis CODE STATUS to full code Medical decision making: High complexity Continue assessment prior Consultants: critical/draw bench operator helper CHAPIN BAR 03/25/24 1351: Attestations Physician Attestation Agree w/findings plan: Patient seen and examined at bedside with fellow. Chart, laboratory data and imaging studies reviewed and interpreted personally. Events noted. Agree with above note. at 1349 at 1351 RPT #:[id number] END OF [id number] 09:55:00 [facility] ([facility]) Hospitalist Progress Note REPORT#:[id number] REPORT STATUS: Signed REPORT INITIALIZATION DATE:03/25/24 TIME: 954 PATIENT: TSERING BRAUN UNIT #: [id number] ROOM/BED: [place] [address] : 71 AGE: 54 SEX: F ATTEND: Meagan Bowen MD ADM AUTHOR: Meagan Bowen MD REPT SERVICE DT/TIME: 03/25/24 0955 * ALL edits or amendments must be made on the electronic/computer document * Subjective Chief complaint: Right foot pain HPI: 03/14/24 Patient seen today at bedside. No acute overnight events. Patient reports continued right foot pain. Denies fever, chills, chest pain, abdominal pain or dysuria. Comments: Patient is seen and examined. Resting in bed. No new complaint. Nursing report borderline hypotension when standing up with PT this morning. Review of Systems All systems rev neg: except as noted Free Text ROS Notes Free Text ROS Notes: Negative except for pertinent positives noted in HPI. Objective General VS/I O: Vital Signs: Date Time Temp Pulse Resp B/P B/P Pulse O2 O2 Flow FiO2 Mean Ox Delivery Rate 03/25 1119 37.0 99 16 138/80 99.5 99 03/25 0749 36.8 90 12 125/78 93.9 97 03/25 0408 36.9 92 17 120/77 91.6 97 Room air 03/24 2338 36.9 89 17 116/73 87.3 96 Room air 03/24 2002 37.0 105 17 114/71 85.3 96 Room air 03/24 1718 37.0 105 16 125/78 93.4 99 24 hour I O ending at 0700: 03/25 0700 03/24 1900 Intake Total 900 Output Total 1850 Balance -950 Intake, Oral 900 Output, Urine 1850 PATIENT WEIGHT: Weight (lb): 149 Weight (oz): 4.05 Weight (kg): 67.585 Medications: Active Meds + DC'd Last 24 Hrs Cefazolin Sodium (Cefazolin Sodium) 2 GM Q8H IV Sodium Chloride (NORMAL SALINE 10ML VIAL) 10 ML Docusate Sodium (COLACE 100MG CAPSULE) 100 MG BID PO Bisacodyl (DULCOLAX) 10 MG DAILY PRN PO Bisacodyl (DULCOLAX 10MG SUPPOSITORY) 10 MG DAILY PRN RECTAL Magnesium Hydroxide (MILK OF MAGNESIA) 30 ML Q12H PRN PRN PO Sodium Biphosphate/Sodium Phosphate (FLEET ENEMA) 1 BOT DAILY PRN PRN RECTAL (CKD) Tramadol HCl (ULTRAM 50MG TABLET) 50 MG Q6H PRN PRN PO Insulin Glargine (Lantus/Semglee) 15 UNIT Q12HR SUBQ Acetaminophen (TYLENOL 325MG TABLET) 650 MG Q4H PRN PRN PO Insulin Human Lispro (HumaLOG) 5 UNIT TID MEALS SUBQ Gabapentin (NEURONTIN 100MG CAPSULE) 100 MG TID PO Insulin Human Lispro (HumaLOG) AGGRESSIVE SLIDING SCALE (steroids, infection, resistant) AC HS 0200 SUBQ Dextrose (GLUCOSE) 16 GM ASDIR PRN PO Dextrose/Water (DEXTROSE 50% 50ML SYRINGE) 12.5 GM ASDIR PRN IV Ondansetron HCl (ZOFRAN 4 MG/2 ML) 4 MG Q4H PRN PRN IV Sodium Chloride (NORMAL SALINE 250ML IV BAG) 250 ML ASDIR PRN IV Physical Exam General appearance: alert, awake, oriented Head/Eyes: atraumatic, normocephalic ENT: moist mucosal membranes, normal dentition Neck: full range of motion, no JVD Cardiovascular: normal capillary refill, normal heart sounds, regular rate rhythm, no heave Respiratory: aerating well, clear to auscultation, symmetric expansion, no distress Abdomen: non-tender, soft, no distention Genitourinary: no flank pain, no urinary catheter Extremities: decreased range of motion, moves all Musculoskeletal: decreased ROM, no CVA tenderness Neuro/GATE SUPERVISOR: alert, oriented X 3, normal speech, no motor deficits Skin: dry, normal temperature Ulcer: Type/cause: Dressing over right foot Results Findings/Data: Laboratory Tests 03/25 03/25 03/25 03/24 03/24 1113 8 223 2000 1714 Chemistry Sodium (133 - 145 MMOL/L) 137 Potassium (3.6 - 5.2 MMOL/L) 3.9 Chloride (100 - 108 MMOL/L) 101 Carbon Dioxide (22 - 32 MMOL/L) 36 H BUN (6 - 20 MG/DL) 16 Creatinine (0.60 - 1.00 MG/DL) 0.54 L Estimated GFR (MDRD) (51 - 120) 110 Glucose (65 - 99 MG/DL) 183 H POC Glucose (65 - 99 MG/DL) 165 H 175 H 123 H 206 H Calcium (8.7 - 10.5 MG/DL) 8.0 L Magnesium (1.8 - 2.4 MG/DL) 2.2 Laboratory Tests 03/258 Hematology WBC (4.80 - 10.80 x10 3/uL) 8.51 RBC (4.2 - 5.4 x10 6/uL) 3.02 L Hgb (12.0 - 16.0 G/DL) 8.4 L Hct (37 - 47 %) 27.3 L MCV (81 - 99 FL) 90.4 MCH (27 - 31 PG) 27.8 MCHC (33 - 37 G/DL) 30.8 L RDW Coeff of Rupert (11.5 - 14.5 %) 12.3 Plt Count (150 - 450 x10 3/uL) 310 MPV (7.4 - 10.4 FL) 8.3 Neut % (Auto) (42 - 86 %) 65.5 Lymph % (Auto) (24 - 44 %) 26.9 [place] % (Auto) (0.0 - 4.0 %) 5.8 H Eos % (Auto) (0.0 - 2.7 %) 1.1 Baso % (Auto) (0.0 - 0.5 %) 0.2 Eos # (Auto) (0.0 - 0.5 x10 3/uL) 0.09 Baso # (Auto) (0.0 - 0.2 x10 3/uL) 0.02 Abs Immat Gran (auto) (0.00 - 0.03 x10 3/uL) 0.04 H Absolute Neuts (auto) (1.8 - 7.7 x10 3/uL) 5.58 Absolute Lymphs (auto) (1.0 - 4.8 x10 3/uL) 2.29 Absolute Monos (auto) (0.0 - 0.8 x10 3/uL) 0.49 Absolute Nucleated RBC (0.0 - 0.2 X10 3/uL) 0.0 Immature Gran % (0.0 - 2.0 %) 0.5 Nucleated RBC % (0.0 - 0.0 %) 0.0 Diagnosis, Assessment Plan Consultants: critical/draw bench operator helper Free Text DxA P Notes Free text DxA P notes: Assessment and plan Right Foot Cellulitis and Abductor Longus Abscess -Rt foot XR Mild soft tissue swelling -CT RLE 2.3 x 0.8 x 0.8 cm abscess within the proximal abductor hallucis muscle in keeping with an abscess. Edema and phlegmon is seen within the adductor hallucis muscle without abscess. No evidence of osteomyelitis. -Patient currently on Ancef -Textile Machinery Instructor consulted, Dr. Mott. -s/p complex I D right foot abscess 03/21/24. Follow up culture. -ID consulted and recommends Ancef 6 g load continuous infusion via PICC with stop date 04/26/2024. Sepsis (POA) 2/2 above -Patient had episode of hypotension 03/21/24 evening after taking [place]. Received albumin 12.5 g IV and midodrine 5 mg PO once. Has dizziness, diaphoresis with hypotension to 86/49 while working with PT 03/22/24. -s/p NS 75 ml/hr x I -Monitor hemodynamic -BP is currently stable. Will start tramadol and see if patient can tolerate. Diabetic ketoacidosis -Resolved Insulin-dependent type 2 diabetes mellitus poorly controlled with severe hyperglycemia (A1c 13.3) -Hemoglobin A1c 13.3 -Patient on Lantus 15 units sc q 12 hr, Humalog 5 units 3 times daily meals, and aggressive sliding scale -Continue with 1999 ADA diet Hypokalemia -Monitor potassium daily and replace as indicated HTN -Patient currently normotensive on no medication Chronic anemia -Hemoglobin trending slowly downward, will monitor CBC daily. -Iron study compatible with AOCD. Normal vitamin B12 and folate. Moderate malnutrition -Hypoalbuminemia -Nutrition consulted. On supplements. Diet: 1999 ADA with Clarita MILLER Discussed with patient about goals of care. Explained in detail about the various categories of CODE STATUS. Answered all questions. Wishes are to proceed with FULL CODE STATUS. Advanced care planning performed for more than 16 minutes. Long conversation with patient and patient family at bedside regarding hospital course and plan. All questions answered. High complexity medical decision making Total care time spent was 68 minutes Disposition: Case management consulted for home IV ABx and home wound care. PT evaluated the patient and recommended IRF due to limited ambulation. Case management consulted for IRF. at 1516 RPT #:[id number] END OF [id number] 08:13:00 [facility] ([facility]) Infectious Dis. Progress Note REPORT#:[id number] REPORT STATUS: Signed REPORT INITIALIZATION DATE:03/25/24 TIME: 812 PATIENT: TSERING BRAUN UNIT #: [id number] ROOM/BED: [place] [address] : 71 AGE: 54 SEX: F ATTEND: Meagan Bowen MD ADM AUTHOR: Karey Granger REPT SERVICE DT/TIME: 03/25/24 08 * ALL edits or amendments must be made on the electronic/computer document * Subjective HPI: Reason for consultation foot abscess and cellulitis. History of present illness Patient is 54-year-old female present to the hospital complains of pain redness swelling of her right foot with evidence of possible abscess. She did not recall how it started. Patient has foot neuropathy. Temperature was 104. Patient is on currently BKA admitted to the ICU with insulin drip. CT of the right lower extremity revealed 2.3 x 0.8 4.8 cm abscess. Patient is currently on vancomycin and Zosyn. Podiatry consult is currently pending I believe. Review of systems; : patient does not report any headaches or visual disturbances. Rest of the 10 systems are normal or as above. Reviewed all the labs CBC CMP all imaging studies and it systems analyst consultant notes and primary care physician notes. Objective General VS/I O: Vital Signs Date Temp Pulse Resp B/P B/P Mean Pulse Ox FiO2 03/24-03/25 98.2-98.6 89-105 12-18 114-152/71-83 85.3-106.2 96-99 Last Documented: Result Date Time Pulse Ox 97 03/25 0749 B/P 125/78 03/25 0749 B/P Mean 93.9 03/25 0749 Temp 98.2 03/25 0749 Pulse 90 03/25 0749 Resp 12 03/25 0749 O2 Delivery Room air 03/25 0408 Vital Signs: Date Time Temp Pulse Resp B/P B/P Pulse O2 O2 Flow FiO2 Mean Ox Delivery Rate 03/25 0749 98.2 90 12 125/78 93.9 97 03/25 0408 98.4 92 17 120/77 91.6 97 Room air 03/24 2338 98.4 89 17 116/73 87.3 96 Room air 03/24 2002 98.6 105 17 114/71 85.3 96 Room air 03/24 1718 98.6 105 16 125/78 93.4 99 03/24 1204 98.6 96 18 152/83 106.2 99 03/24 0823 98.2 97 16 128/74 91.7 98 24 hour I O ending at 0700: 03/25 0700 03/24 1900 Intake Total 900 Output Total 1850 Balance -950 Intake, Oral 900 Output, Urine 1850 PATIENT WEIGHT: Weight (lb): 149 Weight (oz): 4.05 Weight (kg): 67.585 Physical Exam General appearance: alert, awake, oriented Wound/incision: Location: R foot Site condition: dressing clean dry, dressing intact Cardiovascular: normal heart sounds Respiratory: aerating well, symmetric expansion, no distress Abdomen: non-tender, soft Genitourinary: no urinary catheter Extremities: moves all Neuro/GATE SUPERVISOR: alert, oriented X 3 Skin: no rash Ulcer: Type/cause: Dressing over right foot Psychiatry: normal affect, normal judgment/insight, normal mood Results Findings/Data: Laboratory Tests 03/258 4 2000 1715 1106 Chemistry Sodium (133 - 145 MMOL/L) 137 Potassium (3.6 - 5.2 MMOL/L) 3.9 Chloride (100 - 108 MMOL/L) 101 Carbon Dioxide (22 - 32 MMOL/L) 36 H BUN (6 - 20 MG/DL) 16 Creatinine (0.60 - 1.00 MG/DL) 0.54 L Estimated GFR (MDRD) (51 - 120) 110 Glucose (65 - 99 MG/DL) 183 H POC Glucose (65 - 99 MG/DL) 175 H 123 H 206 H 182 H Calcium (8.7 - 10.5 MG/DL) 8.0 L Magnesium (1.8 - 2.4 MG/DL) 2.2 Laboratory Tests 03/25 0248 Hematology WBC (4.80 - 10.80 x10 3/uL) 8.51 RBC (4.2 - 5.4 x10 6/uL) 3.02 L Hgb (12.0 - 16.0 G/DL) 8.4 L Hct (37 - 47 %) 27.3 L MCV (81 - 99 FL) 90.4 MCH (27 - 31 PG) 27.8 MCHC (33 - 37 G/DL) 30.8 L RDW Coeff of Rupert (11.5 - 14.5 %) 12.3 Plt Count (150 - 450 x10 3/uL) 310 MPV (7.4 - 10.4 FL) 8.3 Neut % (Auto) (42 - 86 %) 65.5 Lymph % (Auto) (24 - 44 %) 26.9 [place] % (Auto) (0.0 - 4.0 %) 5.8 H Eos % (Auto) (0.0 - 2.7 %) 1.1 Baso % (Auto) (0.0 - 0.5 %) 0.2 Eos # (Auto) (0.0 - 0.5 x10 3/uL) 0.09 Baso # (Auto) (0.0 - 0.2 x10 3/uL) 0.02 Abs Immat Gran (auto) (0.00 - 0.03 x10 3/uL) 0.04 H Absolute Neuts (auto) (1.8 - 7.7 x10 3/uL) 5.58 Absolute Lymphs (auto) (1.0 - 4.8 x10 3/uL) 2.29 Absolute Monos (auto) (0.0 - 0.8 x10 3/uL) 0.49 Absolute Nucleated RBC (0.0 - 0.2 X10 3/uL) 0.0 Immature Gran % (0.0 - 2.0 %) 0.5 Nucleated RBC % (0.0 - 0.0 %) 0.0 Diagnosis, Assessment Plan Free Text A P: Assessment Patient is 54-year-old female present to the hospital complains of pain redness swelling of her right foot with evidence of possible abscess. She did not recall how it started. Patient has foot neuropathy. Temperature was 104. Patient is on currently BKA admitted to the ICU with insulin drip. CT of the right lower extremity revealed 2.3 x 0.8 4.8 cm abscess. Patient is currently on vancomycin and Zosyn. Podiatry consult is currently pending I believe. Plan At this time continue with IV vancomycin and Zosyn. Podiatry consultation for possible abscess drainage. Will follow and make further recommendations based on culture results. Thank you for the consultation. 03/14/24 transferred to [facility] floor 03/13 febrile Tmax 103.1; will continue to follow temperature curve with leukocytosis of 16k; will follow on room air; no acute distress noted reports she believes blister ruptured; dressing to R foot c,d,i - wound care notified reports pain to R foot controlled at this time blood cultures 03/12 negative so far; will follow urine cultures 03/13 Staph aureus will change antibiotic to IV Cefazolin monitor for antibiotic related adverse effects pending transfer to [facility] for podiatry evaluation will continue to follow clinically Recommendations per Dr Burks 03/17 -pending I D of abscess on 03/19 blood cultures 03/12 NGTD urine cultures 03/13 Staph aureus Cont. on IV Cefazolin monitor for antibiotic related adverse effects pending podiatry evaluation will continue to follow clinically Reviewed with Dr Burks 03/18/24 Patient remains afebrile, WBC 11 K Patient reports 1 loose bowel movement this morning, will follow blood cultures 03/12 NGTD urine cultures 03/13 Staph aureus Cont. on IV Cefazolin monitor for antibiotic related adverse effects Pending I D of abscess tomorrow; please send cultures Reviewed with Dr Burks 03/19/24 Patient remains afebrile, WBC 11 K Patient denies diarrhea blood cultures 03/12 no growth final urine cultures 03/13 Staph aureus Cont. on IV Cefazolin monitor for antibiotic related adverse effects Pending I D of abscess today please send cultures Reviewed with Dr Burks 03/20/24 Tmax 100.6. WBC 9K Will have nursing staff remove oldest IV Pending right foot I D scheduled for tomorrow Patient is currently on Ancef Reviewed with Dr. Burks 03/21/24 No further fevers, WBC 10K Pending right foot I D today Patient is currently on Ancef Reviewed with Dr. Burks 03/24 Patient status post 03/21/2024 complex I D right foot abscess, * cultures growing staph aureus Patient is currently on Ancef Recommend Ancef 6 g load continuous infusion via PICC with stop date 04/26/2024. Case management orders placed Recommendations from Dr. Burks 03/25/24 Patient has been afebrile, WBC 8K Family at bedside Patient status post 03/21/2024 complex I D right foot abscess * cultures growing staph aureus Patient is currently on Ancef Recommend Ancef 6 g load continuous infusion via PICC with stop date 04/26/2024. PICC line in place Patient reports pending inpatient rehab placement Reviewed with Dr. Burks Consultants: critical/draw bench operator helper at 1036 at 9636 RPT #:[id number] END OF [id number] 16:10:00 [facility] ([facility]) Critical Care Progress Note REPORT#:[id number] REPORT STATUS: Signed REPORT INITIALIZATION DATE:03/24/24 TIME: 161 PATIENT: TSERING BRAUN UNIT #: [id number] ROOM/BED: [place] [address] : 71 AGE: 54 SEX: F ATTEND: Meagan Bowen MD ADM AUTHOR: Chapin Bar MD REPT SERVICE DT/TIME: 03/24/24 1610 * ALL edits or amendments must be made on the electronic/computer document * Subjective Chief complaint: right foot pain Review of Systems ROS Psych: Denies: homicidal ideation, suicidal ideation. All systems rev neg: except as marked Objective General VS/I O Last Documented: Result Date Time Pulse Ox 99 03/24 1204 B/P 152/83 03/24 1204 B/P Mean 106.2 03/24 1204 Temp 98.6 03/24 1204 Pulse 96 03/24 1204 Resp 18 03/24 1204 O2 Delivery Room air 03/24 0331 24 hour I O ending at 0700: 03/24 0700 03/23 1900 Intake Total 900 Output Total 1450 Balance -550 Intake, Oral 900 Output, Urine 1450 PATIENT WEIGHT: Weight (lb): 149 Weight (oz): 4.05 Weight (kg): 67.585 Medications: Active Meds + DC'd Last 24 Hrs Docusate Sodium (COLACE 100MG CAPSULE) 100 MG BID PO Bisacodyl (DULCOLAX) 10 MG DAILY PRN PO Bisacodyl (DULCOLAX 10MG SUPPOSITORY) 10 MG DAILY PRN RECTAL Magnesium Hydroxide (MILK OF MAGNESIA) 30 ML Q12H PRN PRN PO Sodium Biphosphate/Sodium Phosphate (FLEET ENEMA) 1 BOT DAILY PRN PRN RECTAL (CKD) Tramadol HCl (ULTRAM 50MG TABLET) 50 MG Q6H PRN PRN PO Insulin Glargine (Lantus/Semglee) 15 UNIT Q12HR SUBQ Acetaminophen (TYLENOL 325MG TABLET) 650 MG Q4H PRN PRN PO Cefazolin Sodium (Cefazolin Sodium) 2 GM Q8H IV (DC) Sodium Chloride (NORMAL SALINE 10ML VIAL) 10 ML Insulin Human Lispro (HumaLOG) 5 UNIT TID MEALS SUBQ Gabapentin (NEURONTIN 100MG CAPSULE) 100 MG TID PO Morphine Sulfate (morphine SULFATE) 2 MG Q4H PRN PRN IV (DC) Insulin Human Lispro (HumaLOG) AGGRESSIVE SLIDING SCALE (steroids, infection, resistant) AC HS 0200 SUBQ Dextrose (GLUCOSE) 16 GM ASDIR PRN PO Dextrose/Water (DEXTROSE 50% 50ML SYRINGE) 12.5 GM ASDIR PRN IV Ondansetron HCl (ZOFRAN 4 MG/2 ML) 4 MG Q4H PRN PRN IV Sodium Chloride (NORMAL SALINE 250ML IV BAG) 250 ML ASDIR PRN IV Results Findings/Data: Laboratory Tests 03/24/24310: [Embedded Image Not Available] Laboratory Tests 03/24 03/24 03/24 03/24 03/23 1106 0527 1 [id number] Chemistry Sodium (133 - 145 MMOL/L) 137 Potassium (3.6 - 5.2 MMOL/L) 4.1 Chloride (100 - 108 MMOL/L) 103 Carbon Dioxide (22 - 32 MMOL/L) 34 H BUN (6 - 20 MG/DL) 16 Creatinine (0.60 - 1.00 MG/DL) 0.50 L Estimated GFR (MDRD) (51 - 120) 112 Glucose (65 - 99 MG/DL) 187 H POC Glucose (65 - 99 MG/DL) 182 H 152 H 149 H 177 H Calcium (8.7 - 10.5 MG/DL) 7.9 L Magnesium (1.8 - 2.4 MG/DL) 2.1 Laboratory Tests 03/24 311 Hematology WBC (4.80 - 10.80 x10 3/uL) 8.89 RBC (4.2 - 5.4 x10 6/uL) 3.01 L Hgb (12.0 - 16.0 G/DL) 8.6 L Hct (37 - 47 %) 27.2 L MCV (81 - 99 FL) 90.4 MCH (27 - 31 PG) 28.6 MCHC (33 - 37 G/DL) 31.6 L RDW Coeff of Rupert (11.5 - 14.5 %) 12.1 Plt Count (150 - 450 x10 3/uL) 323 MPV (7.4 - 10.4 FL) 8.4 Neut % (Auto) (42 - 86 %) 70.9 Lymph % (Auto) (24 - 44 %) 22.0 L [place] % (Auto) (0.0 - 4.0 %) 5.4 H Eos % (Auto) (0.0 - 2.7 %) 1.1 Baso % (Auto) (0.0 - 0.5 %) 0.2 Eos # (Auto) (0.0 - 0.5 x10 3/uL) 0.10 Baso # (Auto) (0.0 - 0.2 x10 3/uL) 0.02 Abs Immat Gran (auto) (0.00 - 0.03 x10 3/uL) 0.04 H Absolute Neuts (auto) (1.8 - 7.7 x10 3/uL) 6.29 Absolute Lymphs (auto) (1.0 - 4.8 x10 3/uL) 1.96 Absolute Monos (auto) (0.0 - 0.8 x10 3/uL) 0.48 Absolute Nucleated RBC (0.0 - 0.2 X10 3/uL) 0.0 Immature Gran % (0.0 - 2.0 %) 0.4 Nucleated RBC % (0.0 - 0.0 %) 0.0 Results: labs reviewed, vital signs stable, x-ray personally reviewed, current med profile rev'd Free Text Obj Notes Free Text Obj Notes: General appearance: chronically ill appearing, alert, awake, oriented, no acute distress, pleasant, conversational, mental status normal, no respiratory distress Head/eyes: atraumatic, clear cornea, PERRLA ENT: dry mucosal membrane, poor dentition Neck: full range of motion, non-tender, no JVD, no masses or swelling Cardiovascular: normal capillary refill, normal heart sounds, regular rate and rhythm, normal S1/S2, no ectopy Respiratory: aerating well, clear to auscultation, symmetric expansion, no distress Abdomen: soft, non-tender Genitourinary: no bladder distention, no flank pain, no urinary catheter Extremities: edema (to RLE), moves all, normal capillary refill, normal range of motion, no calf tenderness, no clubbing, no cyanosis Musculoskeletal normal inspection, painless range of motion Neuro/GATE SUPERVISOR: alert, oriented X 3, normal speech, reflexes equal bilat, no motor deficits, no sensory deficits Skin: abscess (to right foot), dry, intact, normal color, normal temperature, no rash Wound/incision: Location: right foot blister Site condition: no drainage Psychiatry: normal affect, normal judgment/insight, normal mood, not homicidal, not suicidal, no hallucinations Diagnosis, Assessment Plan Free text A P: Acute renal failure Diabetic ketoacidosis Severe sepsis Right foot abscess Uncontrolled type 2 diabetes Normocytic anemia Hypokalemia Patient's mentation appears to be at baseline, no acute neuroconcerns She is saturating well on room air Hemodynamically stable, will continue to monitor closely Vasopressors as needed to maintain MAP greater than 65 Monitor renal function closely Strict I's and O's Avoid nephrotoxic medications Transitioned to basal bolus regimen Continue with antibiotics as per ID ID is following Tolerating a diet DVT prophylaxis GI prophylaxis CODE STATUS to full code Medical decision making: High complexity Continue assessment prior at 1611 RPT #:[id number] END OF [id number] 09:10:00 [facility] ([facility]) Hospitalist Progress Note REPORT#:[id number] REPORT STATUS: Signed REPORT INITIALIZATION DATE:03/24/24 TIME: 909 PATIENT: TSERING BRAUN UNIT #: [id number] ROOM/BED: [address] : 72 AGE: 54 SEX: F ATTEND: Meagan Bowen MD ADM AUTHOR: Meagan Bowen MD REPT SERVICE DT/TIME: 03/24/24 0910 * ALL edits or amendments must be made on the electronic/computer document * Subjective Chief complaint: Right foot pain HPI: 03/14/24 Patient seen today at bedside. No acute overnight events. Patient reports continued right foot pain. Denies fever, chills, chest pain, abdominal pain or dysuria. Comments: Patient is seen and examined. Resting in recliner. No complaint. Review of Systems All systems rev neg: except as noted Free Text ROS Notes Free Text ROS Notes: Negative except for pertinent positives noted in HPI. Objective General VS/I O: Vital Signs: Date Time Temp Pulse Resp B/P B/P Pulse O2 O2 Flow FiO2 Mean Ox Delivery Rate 03/24 1204 37.0 96 18 152/83 106.2 99 03/24 0823 36.8 97 16 128/74 91.7 98 03/24 0331 37.0 86 17 122/75 90.8 97 Room air 03/23 2328 36.7 84 17 119/72 87.8 96 Room air 03/23 2015 36.8 87 17 131/77 94.8 99 Room air 03/23 1639 36.7 87 12 127/78 94.6 98 24 hour I O ending at 0700: 03/24 0700 03/23 1900 Intake Total 900 Output Total 1450 Balance -550 Intake, Oral 900 Output, Urine 1450 PATIENT WEIGHT: Weight (lb): 149 Weight (oz): 4.05 Weight (kg): 67.585 Medications: Active Meds + DC'd Last 24 Hrs Docusate Sodium (COLACE 100MG CAPSULE) 100 MG BID PO Bisacodyl (DULCOLAX) 10 MG DAILY PRN PO Bisacodyl (DULCOLAX 10MG SUPPOSITORY) 10 MG DAILY PRN RECTAL Magnesium Hydroxide (MILK OF MAGNESIA) 30 ML Q12H PRN PRN PO Sodium Biphosphate/Sodium Phosphate (FLEET ENEMA) 1 BOT DAILY PRN PRN RECTAL (CKD) Tramadol HCl (ULTRAM 50MG TABLET) 50 MG Q6H PRN PRN PO Insulin Glargine (Lantus/Semglee) 15 UNIT Q12HR SUBQ Acetaminophen (TYLENOL 325MG TABLET) 650 MG Q4H PRN PRN PO Cefazolin Sodium (Cefazolin Sodium) 2 GM Q8H IV (DC) Sodium Chloride (NORMAL SALINE 10ML VIAL) 10 ML Insulin Human Lispro (HumaLOG) 5 UNIT TID MEALS SUBQ Gabapentin (NEURONTIN 100MG CAPSULE) 100 MG TID PO Morphine Sulfate (morphine SULFATE) 2 MG Q4H PRN PRN IV (DC) Insulin Human Lispro (HumaLOG) AGGRESSIVE SLIDING SCALE (steroids, infection, resistant) AC HS 0200 SUBQ Dextrose (GLUCOSE) 16 GM ASDIR PRN PO Dextrose/Water (DEXTROSE 50% 50ML SYRINGE) 12.5 GM ASDIR PRN IV Ondansetron HCl (ZOFRAN 4 MG/2 ML) 4 MG Q4H PRN PRN IV Sodium Chloride (NORMAL SALINE 250ML IV BAG) 250 ML ASDIR PRN IV Physical Exam General appearance: alert, awake, oriented Head/Eyes: atraumatic, normocephalic ENT: moist mucosal membranes, normal dentition Neck: full range of motion, no JVD Cardiovascular: normal capillary refill, normal heart sounds, regular rate rhythm, no heave Respiratory: aerating well, clear to auscultation, symmetric expansion, no distress Abdomen: non-tender, soft, no distention Genitourinary: no flank pain, no urinary catheter Extremities: decreased range of motion, moves all Musculoskeletal: decreased ROM, no CVA tenderness Neuro/GATE SUPERVISOR: alert, oriented X 3, normal speech, no motor deficits Skin: dry, normal temperature Ulcer: Type/cause: Dressing over right foot Results Findings/Data: Laboratory Tests 03/24 03/24 03/24 03/24 03/23 1106 0527 0311 0133 2013 Chemistry Sodium (133 - 145 MMOL/L) 137 Potassium (3.6 - 5.2 MMOL/L) 4.1 Chloride (100 - 108 MMOL/L) 103 Carbon Dioxide (22 - 32 MMOL/L) 34 H BUN (6 - 20 MG/DL) 16 Creatinine (0.60 - 1.00 MG/DL) 0.50 L Estimated GFR (MDRD) (51 - 120) 112 Glucose (65 - 99 MG/DL) 187 H POC Glucose (65 - 99 MG/DL) 182 H 152 H 149 H 177 H Calcium (8.7 - 10.5 MG/DL) 7.9 L Magnesium (1.8 - 2.4 MG/DL) 2.1 03/23 1540 Chemistry POC Glucose (65 - 99 MG/DL) 141 H Laboratory Tests 03/24 0311 Hematology WBC (4.80 - 10.80 x10 3/uL) 8.89 RBC (4.2 - 5.4 x10 6/uL) 3.01 L Hgb (12.0 - 16.0 G/DL) 8.6 L Hct (37 - 47 %) 27.2 L MCV (81 - 99 FL) 90.4 MCH (27 - 31 PG) 28.6 MCHC (33 - 37 G/DL) 31.6 L RDW Coeff of Rupert (11.5 - 14.5 %) 12.1 Plt Count (150 - 450 x10 3/uL) 323 MPV (7.4 - 10.4 FL) 8.4 Neut % (Auto) (42 - 86 %) 70.9 Lymph % (Auto) (24 - 44 %) 22.0 L [place] % (Auto) (0.0 - 4.0 %) 5.4 H Eos % (Auto) (0.0 - 2.7 %) 1.1 Baso % (Auto) (0.0 - 0.5 %) 0.2 Eos # (Auto) (0.0 - 0.5 x10 3/uL) 0.10 Baso # (Auto) (0.0 - 0.2 x10 3/uL) 0.02 Abs Immat Gran (auto) (0.00 - 0.03 x10 3/uL) 0.04 H Absolute Neuts (auto) (1.8 - 7.7 x10 3/uL) 6.29 Absolute Lymphs (auto) (1.0 - 4.8 x10 3/uL) 1.96 Absolute Monos (auto) (0.0 - 0.8 x10 3/uL) 0.48 Absolute Nucleated RBC (0.0 - 0.2 X10 3/uL) 0.0 Immature Gran % (0.0 - 2.0 %) 0.4 Nucleated RBC % (0.0 - 0.0 %) 0.0 Diagnosis, Assessment Plan Consultants: critical/draw bench operator helper Free Text DxA P Notes Free text DxA P notes: Assessment and plan Right Foot Cellulitis and Abductor Longus Abscess -Rt foot XR Mild soft tissue swelling -CT RLE 2.3 x 0.8 x 0.8 cm abscess within the proximal abductor hallucis muscle in keeping with an abscess. Edema and phlegmon is seen within the adductor hallucis muscle without abscess. No evidence of osteomyelitis. -Patient currently on Ancef -Textile Machinery Instructor consulted, Dr. Mott. -s/p complex I D right foot abscess 03/21/24. Follow up culture. -ID consulted and recommends Ancef 6 g load continuous infusion via PICC with stop date 04/26/2024. Sepsis (POA) 2/2 above -Patient had episode of hypotension 03/21/24 evening after taking [place]. Received albumin 12.5 g IV and midodrine 5 mg PO once. Has dizziness, diaphoresis with hypotension to 86/49 while working with PT 03/22/24. -s/p NS 75 ml/hr x I -Monitor hemodynamic -BP is currently stable. Will start tramadol and see if patient can tolerate. Diabetic ketoacidosis -Resolved Insulin-dependent type 2 diabetes mellitus poorly controlled with severe hyperglycemia (A1c 13.3) -Hemoglobin A1c 13.3 -Patient on Lantus 15 units sc q 12 hr, Humalog 5 units 3 times daily meals, and aggressive sliding scale -Continue with 1999 ADA diet Hypokalemia -Monitor potassium daily and replace as indicated HTN -Patient currently normotensive on no medication Chronic anemia -Hemoglobin trending slowly downward, will monitor CBC daily. -Iron study compatible with AOCD. Normal vitamin B12 and folate. Moderate malnutrition -Hypoalbuminemia -Nutrition consulted. On supplements. Diet: 1999 ADA with Clarita MILLER Discussed with patient about goals of care. Explained in detail about the various categories of CODE STATUS. Answered all questions. Wishes are to proceed with FULL CODE STATUS. Advanced care planning performed for more than 16 minutes. Long conversation with patient and patient family at bedside regarding hospital course and plan. All questions answered. High complexity medical decision making Total care time spent was 68 minutes Disposition: Case management consulted for home IV ABx and home wound care. PT evaluated the patient and recommended IRF due to limited ambulation. Case management consulted for IRF. at 1308 RPT #:[id number] END OF [id number] 05:52:00 [facility] ([facility]) Infectious Dis. Progress Note REPORT#:[id number] REPORT STATUS: Signed REPORT INITIALIZATION DATE:03/24/24 TIME: 551 PATIENT: TSERING BRAUN UNIT #: [id number] ROOM[address]BED: [address] : [address] AGE: 54 SEX: F ATTEND: Meagan Bowen MD ADM AUTHOR: Danica Granger APRN DNP TRIM MACHINE OPERATOR REPT SERVICE DT/TIME: 03/24/24 0552 * ALL edits or amendments must be made on the electronic/computer document * Subjective HPI: Reason for consultation foot abscess and cellulitis. History of present illness Patient is 54-year-old female present to the hospital complains of pain redness swelling of her right foot with evidence of possible abscess. She did not recall how it started. Patient has foot neuropathy. Temperature was 104. Patient is on currently BKA admitted to the ICU with insulin drip. CT of the right lower extremity revealed 2.3 x 0.8 4.8 cm abscess. Patient is currently on vancomycin and Zosyn. Podiatry consult is currently pending I believe. Review of systems; : patient does not report any headaches or visual disturbances. Rest of the 10 systems are normal or as above. Reviewed all the labs CBC CMP all imaging studies and it systems analyst consultant notes and primary care physician notes. Objective General VS/I O: Vital Signs Date Temp Pulse Resp B/P B/P Mean Pulse Ox FiO2 03/23-03/24 97.9-98.6 84-93 12-17 111-135/70-80 83.3-98.6 96-99 Last Documented: Result Date Time Pulse Ox 97 03/24 0331 B/P 122/75 03/24 0331 B/P Mean 90.8 03/241 O2 Delivery Room air 03/24 033 Temp 98.6 03/24 0331 Pulse 86 03/24 0331 Resp 17 03/24 0331 Vital Signs: Date Time Temp Pulse Resp B/P B/P Pulse O2 O2 Flow FiO2 Mean Ox Delivery Rate 03/24 033 98.6 86 17 122/75 90.8 97 Room air 03/23 2328 98.1 84 17 119/72 87.8 96 Room air 03/23 2015 98.2 87 17 131/77 94.8 99 Room air 03/23 1639 98.1 87 12 127/78 94.6 98 03/23 1109 98.1 93 12 111/70 83.3 98 03/23 0813 97.9 84 14 135/80 98.6 99 24 hour I O ending at 0700: 03/24 0700 03/23 1900 Intake Total 900 Output Total 1450 Balance -550 Intake, Oral 900 Output, Urine 1450 PATIENT WEIGHT: Weight (lb): 149 Weight (oz): 4.05 Weight (kg): 67.585 Physical Exam Wound/incision: Location: R foot Site condition: dressing clean dry, dressing intact Cardiovascular: normal heart sounds Respiratory: aerating well, symmetric expansion, no distress Abdomen: non-tender, soft Genitourinary: no urinary catheter Extremities: moves all Neuro/GATE SUPERVISOR: alert, oriented X 3 Skin: no rash Ulcer: Type/cause: Dressing over right foot Psychiatry: normal affect, normal judgment/insight, normal mood Results Findings/Data: Laboratory Tests 03/24 Chemistry Sodium (133 - 145 MMOL/L) 137 Potassium (3.6 - 5.2 MMOL/L) 4.1 Chloride (100 - 108 MMOL/L) 103 Carbon Dioxide (22 - 32 MMOL/L) 34 H BUN (6 - 20 MG/DL) 16 Creatinine (0.60 - 1.00 MG/DL) 0.50 L Estimated GFR (MDRD) (51 - 120) 112 Glucose (65 - 99 MG/DL) 187 H POC Glucose (65 - 99 MG/DL) 152 H 149 H 177 H 141 H Calcium (8.7 - 10.5 MG/DL) 7.9 L Magnesium (1.8 - 2.4 MG/DL) 2.1 03/23 03/23 1046 0630 Chemistry POC Glucose (65 - 99 MG/DL) 202 H 122 H Laboratory Tests 03/24 0311 Hematology WBC (4.80 - 10.80 x10 3/uL) 8.89 RBC (4.2 - 5.4 x10 6/uL) 3.01 L Hgb (12.0 - 16.0 G/DL) 8.6 L Hct (37 - 47 %) 27.2 L MCV (81 - 99 FL) 90.4 MCH (27 - 31 PG) 28.6 MCHC (33 - 37 G/DL) 31.6 L RDW Coeff of Rupert (11.5 - 14.5 %) 12.1 Plt Count (150 - 450 x10 3/uL) 323 MPV (7.4 - 10.4 FL) 8.4 Neut % (Auto) (42 - 86 %) 70.9 Lymph % (Auto) (24 - 44 %) 22.0 L [place] % (Auto) (0.0 - 4.0 %) 5.4 H Eos % (Auto) (0.0 - 2.7 %) 1.1 Baso % (Auto) (0.0 - 0.5 %) 0.2 Eos # (Auto) (0.0 - 0.5 x10 3/uL) 0.10 Baso # (Auto) (0.0 - 0.2 x10 3/uL) 0.02 Abs Immat Gran (auto) (0.00 - 0.03 x10 3/uL) 0.04 H Absolute Neuts (auto) (1.8 - 7.7 x10 3/uL) 6.29 Absolute Lymphs (auto) (1.0 - 4.8 x10 3/uL) 1.96 Absolute Monos (auto) (0.0 - 0.8 x10 3/uL) 0.48 Absolute Nucleated RBC (0.0 - 0.2 X10 3/uL) 0.0 Immature Gran % (0.0 - 2.0 %) 0.4 Nucleated RBC % (0.0 - 0.0 %) 0.0 Diagnosis, Assessment Plan Free Text A P: Assessment Patient is 54-year-old female present to the hospital complains of pain redness swelling of her right foot with evidence of possible abscess. She did not recall how it started. Patient has foot neuropathy. Temperature was 104. Patient is on currently BKA admitted to the ICU with insulin drip. CT of the right lower extremity revealed 2.3 x 0.8 4.8 cm abscess. Patient is currently on vancomycin and Zosyn. Podiatry consult is currently pending I believe. Plan At this time continue with IV vancomycin and Zosyn. Podiatry consultation for possible abscess drainage. Will follow and make further recommendations based on culture results. Thank you for the consultation. 03/14/24 transferred to [facility] floor 03/13 febrile Tmax 103.1; will continue to follow temperature curve with leukocytosis of 16k; will follow on room air; no acute distress noted reports she believes blister ruptured; dressing to R foot c,d,i - wound care notified reports pain to R foot controlled at this time blood cultures 03/12 negative so far; will follow urine cultures 03/13 Staph aureus will change antibiotic to IV Cefazolin monitor for antibiotic related adverse effects pending transfer to [facility] for podiatry evaluation will continue to follow clinically Recommendations per Dr Burks 03/17 -pending I D of abscess on 03/19 blood cultures 03/12 NGTD urine cultures 03/13 Staph aureus Cont. on IV Cefazolin monitor for antibiotic related adverse effects pending podiatry evaluation will continue to follow clinically Reviewed with Dr Burks 03/18/24 Patient remains afebrile, WBC 11 K Patient reports 1 loose bowel movement this morning, will follow blood cultures 03/12 NGTD urine cultures 03/13 Staph aureus Cont. on IV Cefazolin monitor for antibiotic related adverse effects Pending I D of abscess tomorrow; please send cultures Reviewed with Dr Burks 03/19/24 Patient remains afebrile, WBC 11 K Patient denies diarrhea blood cultures 03/12 no growth final urine cultures 03/13 Staph aureus Cont. on IV Cefazolin monitor for antibiotic related adverse effects Pending I D of abscess today please send cultures Reviewed with Dr Burks 03/20/24 Tmax 100.6. WBC 9K Will have nursing staff remove oldest IV Pending right foot I D scheduled for tomorrow Patient is currently on Ancef Reviewed with Dr. Burks 03/21/24 No further fevers, WBC 10K Pending right foot I D today Patient is currently on Ancef Reviewed with Dr. Burks 03/24 Patient status post 03/21/2024 complex I D right foot abscess, * cultures growing staph aureus Patient is currently on Ancef Recommend Ancef 6 g load continuous infusion via PICC with stop date 04/26/2024. Case management orders placed Recommendations from Dr. Burks at 0553 at 2154 [facility] #:[id number] END OF [id number] 10:05:00 [facility] ([facility]) Critical Care Progress Note REPORT#:[id number] REPORT STATUS: Signed REPORT INITIALIZATION DATE:03/23/24 TIME: 1005 PATIENT: TSERING BRAUN UNIT #: [id number] [address]BED: [address] : [birth year] AGE: 54 SEX: F ATTEND: Meagan Bowen MD ADM AUTHOR: Chapin Bar MD REPT SERVICE DT/TIME: 03/22/24 1005 * ALL edits or amendments must be made on the electronic/computer document * Subjective Chief complaint: right foot pain Comments: Late entry note for DOS - 03/22/24 Review of Systems ROS Psych: Denies: homicidal ideation, suicidal ideation. All systems rev neg: except as marked Objective General VS/I O Last Documented: Result Date Time Pulse Ox 99 03/23 08 B/P 135/80 03/23 0813 B/P Mean 98.6 03/23 0813 Temp 97.9 03/23 0813 Pulse 84 03/23 0813 Resp 14 03/23 0813 O2 Delivery Room air 03/23 0440 24 hour I O ending at 0700: 03/23 0700 03/22 1900 Intake Total 1500.00 Output Total 750 Balance 750.00 Intake, IV 600.00 Intake, Oral 900 Output, Urine 750 PATIENT WEIGHT: Weight (lb): 149 Weight (oz): 4.05 Weight (kg): 67.585 Medications: Active Meds + DC'd Last 24 Hrs Tramadol HCl (ULTRAM 50MG TABLET) 50 MG Q6H PRN PRN PO Ketorolac Tromethamine (TORADOL 30MG INJECTION) 15 MG ONCE ONE IV (DC) Sodium Chloride (SODIUM CHLORIDE 0.9%) 1,000 ML ONCE ONE IV (DC) Sodium Chloride (SODIUM CHLORIDE 0.9%) 1,000 ML .[id number] IV (DC) Insulin Glargine (Lantus/Semglee) 15 UNIT Q12HR SUBQ Acetaminophen (TYLENOL 325MG TABLET) 650 MG Q4H PRN PRN PO Cefazolin Sodium (Cefazolin Sodium) 2 GM Q8H IV Sodium Chloride (NORMAL SALINE 10ML VIAL) 10 ML Insulin Human Lispro (HumaLOG) 5 UNIT TID MEALS SUBQ Gabapentin (NEURONTIN 100MG CAPSULE) 100 MG TID PO Hydrocodone Bitart/Acetaminophen (NORCO 5-325 TABLET) 1 TAB Q4H PRN PRN PO (DC) Morphine Sulfate (morphine SULFATE) 2 MG Q4H PRN PRN IV Insulin Human Lispro (HumaLOG) AGGRESSIVE SLIDING SCALE (steroids, infection, resistant) AC HS 0200 SUBQ Dextrose (GLUCOSE) 16 GM ASDIR PRN PO Dextrose/Water (DEXTROSE 50% 50ML SYRINGE) 12.5 GM ASDIR PRN IV Ondansetron HCl (ZOFRAN 4 MG/2 ML) 4 MG Q4H PRN PRN IV Sodium Chloride (NORMAL SALINE 250ML IV BAG) 250 ML ASDIR PRN IV Results Findings/Data: Laboratory Tests 03/23/24 0430: [Embedded Image Not Available] Laboratory Tests 03/23 03/23 03/23 03/22 03/22 0630 0430 0156 1944 1600 Chemistry Sodium (133 - 145 MMOL/L) 139 Potassium (3.6 - 5.2 MMOL/L) 3.8 Chloride (100 - 108 MMOL/L) 105 Carbon Dioxide (22 - 32 MMOL/L) 34 H BUN (6 - 20 MG/DL) 16 Creatinine (0.60 - 1.00 MG/DL) 0.52 L Estimated GFR (MDRD) (51 - 120) 111 Glucose (65 - 99 MG/DL) 133 H POC Glucose (65 - 99 MG/DL) 122 H 218 H 191 H 94 Calcium (8.7 - 10.5 MG/DL) 7.9 L Magnesium (1.8 - 2.4 MG/DL) 2.1 03/22 1102 Chemistry POC Glucose (65 - 99 MG/DL) 195 H Laboratory Tests 03/22 1259 Coagulation PT (9.6 - 12.3 SECONDS) 13.2 H INR 1.14 APTT (22.5 - 35.3 SECONDS) 31.2 Laboratory Tests 03/23 0430 Hematology WBC (4.80 - 10.80 x10 3/uL) 8.49 RBC (4.2 - 5.4 x10 6/uL) 3.15 L Hgb (12.0 - 16.0 G/DL) 8.9 L Hct (37 - 47 %) 28.5 L MCV (81 - 99 FL) 90.5 MCH (27 - 31 PG) 28.3 MCHC (33 - 37 G/DL) 31.2 L RDW Coeff of Rupert (11.5 - 14.5 %) 12.2 Plt Count (150 - 450 x10 3/uL) 308 MPV (7.4 - 10.4 FL) 8.2 Neut % (Auto) (42 - 86 %) 69.5 Lymph % (Auto) (24 - 44 %) 23.3 L [place] % (Auto) (0.0 - 4.0 %) 5.7 H Eos % (Auto) (0.0 - 2.7 %) 0.9 Baso % (Auto) (0.0 - 0.5 %) 0.2 Eos # (Auto) (0.0 - 0.5 x10 3/uL) 0.08 Baso # (Auto) (0.0 - 0.2 x10 3/uL) 0.02 Abs Immat Gran (auto) (0.00 - 0.03 x10 3/uL) 0.03 Absolute Neuts (auto) (1.8 - 7.7 x10 3/uL) 5.90 Absolute Lymphs (auto) (1.0 - 4.8 x10 3/uL) 1.98 Absolute Monos (auto) (0.0 - 0.8 x10 3/uL) 0.48 Absolute Nucleated RBC (0.0 - 0.2 X10 3/uL) 0.0 Immature Gran % (0.0 - 2.0 %) 0.4 Nucleated RBC % (0.0 - 0.0 %) 0.0 Microbiology: 03/21 1242 FOOT: Fungal Smear - RES 03/21 1242 FOOT: Fungal Culture - RES 03/21 1242 ANAEROBE: Anaerobic Culture - RES 03/21 1242 ANAEROBE: Gram Stain - RES 03/21 1242 FOOT: Wound Culture - RES STAPHYLOCOCCUS AUREUS 03/21 1242 FOOT: Gram Stain - RES Results: labs reviewed, vital signs stable, x-ray personally reviewed, current med profile rev'd Free Text Obj Notes Free Text Obj Notes: General appearance: chronically ill appearing, alert, awake, oriented, no acute distress, pleasant, conversational, mental status normal, no respiratory distress Head/eyes: atraumatic, clear cornea, PERRLA ENT: dry mucosal membrane, poor dentition Neck: full range of motion, non-tender, no JVD, no masses or swelling Cardiovascular: normal capillary refill, normal heart sounds, regular rate and rhythm, normal S1/S2, no ectopy Respiratory: aerating well, clear to auscultation, symmetric expansion, no distress Abdomen: soft, non-tender Genitourinary: no bladder distention, no flank pain, no urinary catheter Extremities: edema (to RLE), moves all, normal capillary refill, normal range of motion, no calf tenderness, no clubbing, no cyanosis Musculoskeletal normal inspection, painless range of motion Neuro/GATE SUPERVISOR: alert, oriented X 3, normal speech, reflexes equal bilat, no motor deficits, no sensory deficits Skin: abscess (to right foot), dry, intact, normal color, normal temperature, no rash Wound/incision: Location: right foot blister Site condition: no drainage Psychiatry: normal affect, normal judgment/insight, normal mood, not homicidal, not suicidal, no hallucinations Diagnosis, Assessment Plan Free text A P: Acute renal failure Diabetic ketoacidosis Severe sepsis Right foot abscess Uncontrolled type 2 diabetes Normocytic anemia Hypokalemia Patient's mentation appears to be at baseline, no acute neuroconcerns She is saturating well on room air Hemodynamically stable, will continue to monitor closely Vasopressors as needed to maintain MAP greater than 65 Monitor renal function closely Strict I's and O's Avoid nephrotoxic medications Transitioned to basal bolus regimen Continue with antibiotics as per ID ID is following Tolerating a diet DVT prophylaxis GI prophylaxis CODE STATUS to full code Medical decision making: High complexity Continue assessment prior at 1006 RPT #:[id number] END OF [id number] 09:29:00 [facility] ([facility]) Hospitalist Progress Note REPORT#:[id number] REPORT STATUS: Signed REPORT INITIALIZATION DATE:03/23/24 TIME: 928 PATIENT: TSERING BRAUN UNIT #: [id number] ROOM/BED: D331-1 : 71 AGE: 54 SEX: F ATTEND: Meagan Bowen MD ADM AUTHOR: Meagan Bowen MD REPT SERVICE DT/TIME: 03/23/24 0929 * ALL edits or amendments must be made on the electronic/computer document * Subjective Chief complaint: Right foot pain HPI: 03/14/24 Patient seen today at bedside. No acute overnight events. Patient reports continued right foot pain. Denies fever, chills, chest pain, abdominal pain or dysuria. Comments: Patient is seen and examined. Resting in bed. No complaint. BP has been stable. Review of Systems All systems rev neg: except as noted Free Text ROS Notes Free Text ROS Notes: Negative except for pertinent positives noted in HPI. Objective General VS/I O: Vital Signs: Date Time Temp Pulse Resp B/P B/P Pulse O2 O2 Flow FiO2 Mean Ox Delivery Rate 03/23 1109 36.7 93 12 111/70 83.3 98 03/23 0813 36.6 84 14 135/80 98.6 99 03/23 0440 37.0 84 18 136/75 95.1 98 Room air 03/22 2344 37.0 88 16 119/74 89.0 96 03/22 1949 36.8 82 14 127/76 93.4 97 03/22 1602 36.9 82 16 107/64 78.2 98 03/22 1602 36.9 82 16 107/64 78.2 98 24 hour I O ending at 0700: 03/23 0700 03/22 1900 Intake Total 1500.00 Output Total 750 Balance 750.00 Intake, IV 600.00 Intake, Oral 900 Output, Urine 750 PATIENT WEIGHT: Weight (lb): 149 Weight (oz): 4.05 Weight (kg): 67.585 Medications: Active Meds + DC'd Last 24 Hrs Tramadol HCl (ULTRAM 50MG TABLET) 50 MG Q6H PRN PRN PO Sodium Chloride (SODIUM CHLORIDE 0.9%) 1,000 ML ONCE ONE IV (DC) Sodium Chloride (SODIUM CHLORIDE 0.9%) 1,000 ML .[id number] IV (DC) Insulin Glargine (Lantus/Semglee) 15 UNIT Q12HR SUBQ Acetaminophen (TYLENOL 325MG TABLET) 650 MG Q4H PRN PRN PO Cefazolin Sodium (Cefazolin Sodium) 2 GM Q8H IV Sodium Chloride (NORMAL SALINE 10ML VIAL) 10 ML Insulin Human Lispro (HumaLOG) 5 UNIT TID MEALS SUBQ Gabapentin (NEURONTIN 100MG CAPSULE) 100 MG TID PO Hydrocodone Bitart/Acetaminophen (NORCO 5-325 TABLET) 1 TAB Q4H PRN PRN PO (DC) Morphine Sulfate (morphine SULFATE) 2 MG Q4H PRN PRN IV Insulin Human Lispro (HumaLOG) AGGRESSIVE SLIDING SCALE (steroids, infection, resistant) AC HS 0200 SUBQ Dextrose (GLUCOSE) 16 GM ASDIR PRN PO Dextrose/Water (DEXTROSE 50% 50ML SYRINGE) 12.5 GM ASDIR PRN IV Ondansetron HCl (ZOFRAN 4 MG/2 ML) 4 MG Q4H PRN PRN IV Sodium Chloride (NORMAL SALINE 250ML IV BAG) 250 ML ASDIR PRN IV Physical Exam General appearance: alert, awake, oriented Head/Eyes: atraumatic, normocephalic ENT: moist mucosal membranes, normal dentition Neck: full range of motion, no JVD Cardiovascular: normal capillary refill, normal heart sounds, regular rate rhythm, no heave Respiratory: aerating well, clear to auscultation, symmetric expansion, no distress Abdomen: non-tender, soft, no distention Genitourinary: no flank pain, no urinary catheter Extremities: decreased range of motion, moves all Musculoskeletal: decreased ROM, no CVA tenderness Neuro/GATE SUPERVISOR: alert, oriented X 3, normal speech, no motor deficits Skin: dry, normal temperature Ulcer: Type/cause: Dressing over right foot Results Findings/Data: Laboratory Tests 03/23 03/23 03/23 03/23 03/22 1046 0630 0430 0156 1944 Chemistry Sodium (133 - 145 MMOL/L) 139 Potassium (3.6 - 5.2 MMOL/L) 3.8 Chloride (100 - 108 MMOL/L) 105 Carbon Dioxide (22 - 32 MMOL/L) 34 H BUN (6 - 20 MG/DL) 16 Creatinine (0.60 - 1.00 MG/DL) 0.52 L Estimated GFR (MDRD) (51 - 120) 111 Glucose (65 - 99 MG/DL) 133 H POC Glucose (65 - 99 MG/DL) 202 H 122 H 218 H 191 H Calcium (8.7 - 10.5 MG/DL) 7.9 L Magnesium (1.8 - 2.4 MG/DL) 2.1 03/22 1600 Chemistry POC Glucose (65 - 99 MG/DL) 94 Laboratory Tests 03/23 0430 Hematology WBC (4.80 - 10.80 x10 3/uL) 8.49 RBC (4.2 - 5.4 x10 6/uL) 3.15 L Hgb (12.0 - 16.0 G/DL) 8.9 L Hct (37 - 47 %) 28.5 L MCV (81 - 99 FL) 90.5 MCH (27 - 31 PG) 28.3 MCHC (33 - 37 G/DL) 31.2 L RDW Coeff of Rupert (11.5 - 14.5 %) 12.2 Plt Count (150 - 450 x10 3/uL) 308 MPV (7.4 - 10.4 FL) 8.2 Neut % (Auto) (42 - 86 %) 69.5 Lymph % (Auto) (24 - 44 %) 23.3 L [place] % (Auto) (0.0 - 4.0 %) 5.7 H Eos % (Auto) (0.0 - 2.7 %) 0.9 Baso % (Auto) (0.0 - 0.5 %) 0.2 Eos # (Auto) (0.0 - 0.5 x10 3/uL) 0.08 Baso # (Auto) (0.0 - 0.2 x10 3/uL) 0.02 Abs Immat Gran (auto) (0.00 - 0.03 x10 3/uL) 0.03 Absolute Neuts (auto) (1.8 - 7.7 x10 3/uL) 5.90 Absolute Lymphs (auto) (1.0 - 4.8 x10 3/uL) 1.98 Absolute Monos (auto) (0.0 - 0.8 x10 3/uL) 0.48 Absolute Nucleated RBC (0.0 - 0.2 X10 3/uL) 0.0 Immature Gran % (0.0 - 2.0 %) 0.4 Nucleated RBC % (0.0 - 0.0 %) 0.0 Diagnosis, Assessment Plan Consultants: critical/draw bench operator helper Free Text DxA P Notes Free text DxA P notes: Assessment and plan Right Foot Cellulitis and Abductor Longus Abscess -Rt foot XR Mild soft tissue swelling -CT RLE 2.3 x 0.8 x 0.8 cm abscess within the proximal abductor hallucis muscle in keeping with an abscess. Edema and phlegmon is seen within the adductor hallucis muscle without abscess. No evidence of osteomyelitis. -Patient currently on Ancef -Textile Machinery Instructor consulted, Dr. Mott. -s/p complex I D right foot abscess 03/21/24. Follow up culture. -ID consulted and recommends Ancef 6 g load continuous infusion via PICC with stop date 04/26/2024. Sepsis (POA) 2/2 above -Patient had episode of hypotension 03/21/24 evening after taking [place]. Received albumin 12.5 g IV and midodrine 5 mg PO once. Has dizziness, diaphoresis with hypotension to 86/49 while working with PT 03/22/24. -s/p NS 75 ml/hr x I -Monitor hemodynamic -BP is currently stable. Will start tramadol and see if patient can tolerate. Diabetic ketoacidosis -Resolved Insulin-dependent type 2 diabetes mellitus poorly controlled with severe hyperglycemia (A1c 13.3) -Hemoglobin A1c 13.3 -Patient on Lantus 15 units sc q 12 hr, Humalog 5 units 3 times daily meals, and aggressive sliding scale -Continue with 1999 ADA diet Hypokalemia -Monitor potassium daily and replace as indicated HTN -Patient currently normotensive on no medication Chronic anemia -Hemoglobin trending slowly downward, will monitor CBC daily. -Iron study compatible with AOCD. Normal vitamin B12 and folate. Moderate malnutrition -Hypoalbuminemia -Nutrition consulted. On supplements. Diet: 1999 ADA with Clarita MILLER Discussed with patient about goals of care. Explained in detail about the various categories of CODE STATUS. Answered all questions. Wishes are to proceed with FULL CODE STATUS. Advanced care planning performed for more than 16 minutes. Long conversation with patient and patient family at bedside regarding hospital course and plan. All questions answered. High complexity medical decision making Total care time spent was 68 minutes Disposition: Case management consulted for home IV ABx and home wound care. at 1303 RPT #:[id number] END OF [id number] 09:07:00 [facility] ([facility]) Critical Care Progress Note REPORT#:[id number] REPORT STATUS: Signed REPORT INITIALIZATION DATE:03/23/24 TIME: 906 PATIENT: TSERING BRAUN UNIT #: [id number] ROOM/BED: [place] [id number] : 71 AGE: 54 SEX: F ATTEND: Meagan Bowen MD ADM AUTHOR: Chapin Bar MD REPT SERVICE DT/TIME: 03/23/24906 * ALL edits or amendments must be made on the electronic/computer document * Subjective Chief complaint: right foot pain HPI: Pt seen and examined. Review of Systems ROS Psych: Denies: homicidal ideation, suicidal ideation. All systems rev neg: except as marked Objective General VS/I O Last Documented: Result Date Time Pulse Ox 98 03/23 1109 B/P 111/70 03/23 1109 B/P Mean 83.3 03/23 1109 Temp 98.1 03/23 1109 Pulse 93 03/23 1109 Resp 12 03/23 1109 O2 Delivery Room air 03/23 0440 24 hour I O ending at 0700: 03/23 0700 03/22 1900 Intake Total 1500.00 Output Total 750 Balance 750.00 Intake, IV 600.00 Intake, Oral 900 Output, Urine 750 PATIENT WEIGHT: Weight (lb): 149 Weight (oz): 4.05 Weight (kg): 67.585 Medications: Active Meds + DC'd Last 24 Hrs Tramadol HCl (ULTRAM 50MG TABLET) 50 MG Q6H PRN PRN PO Sodium Chloride (SODIUM CHLORIDE 0.9%) 1,000 ML ONCE ONE IV (DC) Sodium Chloride (SODIUM CHLORIDE 0.9%) 1,000 ML .[id number] IV (DC) Insulin Glargine (Lantus/Semglee) 15 UNIT Q12HR SUBQ Acetaminophen (TYLENOL 325MG TABLET) 650 MG Q4H PRN PRN PO Cefazolin Sodium (Cefazolin Sodium) 2 GM Q8H IV Sodium Chloride (NORMAL SALINE 10ML VIAL) 10 ML Insulin Human Lispro (HumaLOG) 5 UNIT TID MEALS SUBQ Gabapentin (NEURONTIN 100MG CAPSULE) 100 MG TID PO Hydrocodone Bitart/Acetaminophen (NORCO 5-325 TABLET) 1 TAB Q4H PRN PRN PO (DC) Morphine Sulfate (morphine SULFATE) 2 MG Q4H PRN PRN IV Insulin Human Lispro (HumaLOG) AGGRESSIVE SLIDING SCALE (steroids, infection, resistant) AC HS 0200 SUBQ Dextrose (GLUCOSE) 16 GM ASDIR PRN PO Dextrose/Water (DEXTROSE 50% 50ML SYRINGE) 12.5 GM ASDIR PRN IV Ondansetron HCl (ZOFRAN 4 MG/2 ML) 4 MG Q4H PRN PRN IV Sodium Chloride (NORMAL SALINE 250ML IV BAG) 250 ML ASDIR PRN IV Physical Exam Ulcer: Type/cause: Dressing over right foot Results Findings/Data: Laboratory Tests 03/23/24 0430: [Embedded Image Not Available] Laboratory Tests 03/23 03/23 03/23 03/23 03/22 1046 0630 0430 0156 1944 Chemistry Sodium (133 - 145 MMOL/L) 139 Potassium (3.6 - 5.2 MMOL/L) 3.8 Chloride (100 - 108 MMOL/L) 105 Carbon Dioxide (22 - 32 MMOL/L) 34 H BUN (6 - 20 MG/DL) 16 Creatinine (0.60 - 1.00 MG/DL) 0.52 L Estimated GFR (MDRD) (51 - 120) 111 Glucose (65 - 99 MG/DL) 133 H POC Glucose (65 - 99 MG/DL) 202 H 122 H 218 H 191 H Calcium (8.7 - 10.5 MG/DL) 7.9 L Magnesium (1.8 - 2.4 MG/DL) 2.1 03/22 1600 Chemistry POC Glucose (65 - 99 MG/DL) 94 Laboratory Tests 03/23 0430 Hematology WBC (4.80 - 10.80 x10 3/uL) 8.49 RBC (4.2 - 5.4 x10 6/uL) 3.15 L Hgb (12.0 - 16.0 G/DL) 8.9 L Hct (37 - 47 %) 28.5 L MCV (81 - 99 FL) 90.5 MCH (27 - 31 PG) 28.3 MCHC (33 - 37 G/DL) 31.2 L RDW Coeff of Rupert (11.5 - 14.5 %) 12.2 Plt Count (150 - 450 x10 3/uL) 308 MPV (7.4 - 10.4 FL) 8.2 Neut % (Auto) (42 - 86 %) 69.5 Lymph % (Auto) (24 - 44 %) 23.3 L [place] % (Auto) (0.0 - 4.0 %) 5.7 H Eos % (Auto) (0.0 - 2.7 %) 0.9 Baso % (Auto) (0.0 - 0.5 %) 0.2 Eos # (Auto) (0.0 - 0.5 x10 3/uL) 0.08 Baso # (Auto) (0.0 - 0.2 x10 3/uL) 0.02 Abs Immat Gran (auto) (0.00 - 0.03 x10 3/uL) 0.03 Absolute Neuts (auto) (1.8 - 7.7 x10 3/uL) 5.90 Absolute Lymphs (auto) (1.0 - 4.8 x10 3/uL) 1.98 Absolute Monos (auto) (0.0 - 0.8 x10 3/uL) 0.48 Absolute Nucleated RBC (0.0 - 0.2 X10 3/uL) 0.0 Immature Gran % (0.0 - 2.0 %) 0.4 Nucleated RBC % (0.0 - 0.0 %) 0.0 Microbiology: 03/21 1242 FOOT: Fungal Smear - RES 03/21 1242 FOOT: Fungal Culture - RES 03/21 1242 ANAEROBE: Anaerobic Culture - RES NO ANAEROBES ISOLATED. 03/21 1242 ANAEROBE: Gram Stain - RES 03/21 1242 FOOT: Wound Culture - COMP STAPHYLOCOCCUS AUREUS 03/21 1242 FOOT: Gram Stain - COMP Results: labs reviewed, vital signs stable, current med profile rev'd Free Text Obj Notes Free Text Obj Notes: General appearance: chronically ill appearing, alert, awake, oriented, no acute distress, pleasant, conversational, mental status normal, no respiratory distress Head/eyes: atraumatic, clear cornea, PERRLA ENT: dry mucosal membrane, poor dentition Neck: full range of motion, non-tender, no JVD, no masses or swelling Cardiovascular: normal capillary refill, normal heart sounds, regular rate and rhythm, normal S1/S2, no ectopy Respiratory: aerating well, clear to auscultation, symmetric expansion, no distress Abdomen: soft, non-tender Genitourinary: no bladder distention, no flank pain, no urinary catheter Extremities: edema (to RLE), moves all, normal capillary refill, normal range of motion, no calf tenderness, no clubbing, no cyanosis Musculoskeletal normal inspection, painless range of motion Neuro/GATE SUPERVISOR: alert, oriented X 3, normal speech, reflexes equal bilat, no motor deficits, no sensory deficits Skin: abscess (to right foot), dry, intact, normal color, normal temperature, no rash Wound/incision: Location: right foot blister Site condition: no drainage Psychiatry: normal affect, normal judgment/insight, normal mood, not homicidal, not suicidal, no hallucinations Diagnosis, Assessment Plan Free text A P: Acute renal failure Diabetic ketoacidosis Severe sepsis Right foot abscess Uncontrolled type 2 diabetes Normocytic anemia Hypokalemia Patient's mentation appears to be at baseline, no acute neuroconcerns She is saturating well on room air Hemodynamically stable, will continue to monitor closely Vasopressors as needed to maintain MAP greater than 65 Monitor renal function closely Strict I's and O's Avoid nephrotoxic medications Transitioned to basal bolus regimen Continue with antibiotics as per ID ID is following Tolerating a diet DVT prophylaxis GI prophylaxis CODE STATUS to full code Medical decision making: High complexity Continue assessment prior Consultants: critical/draw bench operator helper at 1347 RPT #:[id number] END OF [id number] 06:17:00 [facility] ([facility]) Infectious Dis. Progress Note REPORT#:[id number] REPORT STATUS: Signed REPORT INITIALIZATION DATE:03/23/24 TIME: 616 PATIENT: TSERING BRAUN UNIT #: [id number] ROOM/BED: [place] [address] : 71 AGE: 54 SEX: F ATTEND: Meagan Bowen MD ADM AUTHOR: Danica Granger APRN DNP TRIM MACHINE OPERATOR REPT SERVICE DT/TIME: 03/23/24 0617 * ALL edits or amendments must be made on the electronic/computer document * Subjective HPI: Reason for consultation foot abscess and cellulitis. History of present illness Patient is 54-year-old female present to the hospital complains of pain redness swelling of her right foot with evidence of possible abscess. She did not recall how it started. Patient has foot neuropathy. Temperature was 104. Patient is on currently BKA admitted to the ICU with insulin drip. CT of the right lower extremity revealed 2.3 x 0.8 4.8 cm abscess. Patient is currently on vancomycin and Zosyn. Podiatry consult is currently pending I believe. Review of systems; : patient does not report any headaches or visual disturbances. Rest of the 10 systems are normal or as above. Reviewed all the labs CBC CMP all imaging studies and it systems analyst consultant notes and primary care physician notes. Objective General VS/I O: Vital Signs Date Temp Pulse Resp B/P B/P Mean Pulse Ox FiO2 03/22-03/23 98.2-98.6 82-89 14-18 101-136/63-76 75.2-95.1 95-98 Last Documented: Result Date Time Pulse Ox 98 03/23 0440 B/P 136/75 03/23 0440 B/P Mean 95.1 03/23 0440 O2 Delivery Room air 03/23 0440 Temp 98.6 03/23 0440 Pulse 84 / 0440 Resp 18 03/23 0440 Vital Signs: Date Time Temp Pulse Resp B/P B/P Pulse O2 O2 Flow FiO2 Mean Ox Delivery Rate 03/23 0440 98.6 84 18 136/75 95.1 98 Room air 03/22 2344 98.6 88 16 119/74 89.0 96 03/22 1949 98.2 82 14 127/76 93.4 97 03/22 1602 98.4 82 16 107/64 78.2 98 03/22 1602 98.4 82 16 107/64 78.2 98 03/22 1103 98.4 88 16 106/65 78.6 96 03/22 1045 98.4 89 18 110/68 82.0 95 03/22 0801 98.4 86 16 101/63 75.2 95 24 hour I O ending at 0700: 03/23 0700 03/22 1900 Intake Total 1500.00 Output Total 750 Balance 750.00 Intake, IV 600.00 Intake, Oral 900 Output, Urine 750 PATIENT WEIGHT: Weight (lb): 149 Weight (oz): 4.05 Weight (kg): 67.585 Physical Exam Wound/incision: Location: R foot Site condition: dressing clean dry, dressing intact Cardiovascular: normal heart sounds Respiratory: aerating well, symmetric expansion, no distress Abdomen: non-tender, soft Genitourinary: no urinary catheter Extremities: moves all Neuro/GATE SUPERVISOR: alert, oriented X 3 Skin: no rash Ulcer: Type/cause: Dressing over right foot Psychiatry: normal affect, normal judgment/insight, normal mood Results Findings/Data: Laboratory Tests 03/23 03/23 03/22 03/22 03/22 0430 0156 1944 1600 1102 Chemistry Sodium (133 - 145 MMOL/L) 139 Potassium (3.6 - 5.2 MMOL/L) 3.8 Chloride (100 - 108 MMOL/L) 105 Carbon Dioxide (22 - 32 MMOL/L) 34 H BUN (6 - 20 MG/DL) 16 Creatinine (0.60 - 1.00 MG/DL) 0.52 L Estimated GFR (MDRD) (51 - 120) 111 Glucose (65 - 99 MG/DL) 133 H POC Glucose (65 - 99 MG/DL) 218 H 191 H 94 195 H Calcium (8.7 - 10.5 MG/DL) 7.9 L Magnesium (1.8 - 2.4 MG/DL) 2.1 Laboratory Tests 03/22 1259 Coagulation PT (9.6 - 12.3 SECONDS) 13.2 H INR 1.14 APTT (22.5 - 35.3 SECONDS) 31.2 Laboratory Tests 03/23 0430 Hematology WBC (4.80 - 10.80 x10 3/uL) 8.49 RBC (4.2 - 5.4 x10 6/uL) 3.15 L Hgb (12.0 - 16.0 G/DL) 8.9 L Hct (37 - 47 %) 28.5 L MCV (81 - 99 FL) 90.5 MCH (27 - 31 PG) 28.3 MCHC (33 - 37 G/DL) 31.2 L RDW Coeff of Rupert (11.5 - 14.5 %) 12.2 Plt Count (150 - 450 x10 3/uL) 308 MPV (7.4 - 10.4 FL) 8.2 Neut % (Auto) (42 - 86 %) 69.5 Lymph % (Auto) (24 - 44 %) 23.3 L [place] % (Auto) (0.0 - 4.0 %) 5.7 H Eos % (Auto) (0.0 - 2.7 %) 0.9 Baso % (Auto) (0.0 - 0.5 %) 0.2 Eos # (Auto) (0.0 - 0.5 x10 3/uL) 0.08 Baso # (Auto) (0.0 - 0.2 x10 3/uL) 0.02 Abs Immat Gran (auto) (0.00 - 0.03 x10 3/uL) 0.03 Absolute Neuts (auto) (1.8 - 7.7 x10 3/uL) 5.90 Absolute Lymphs (auto) (1.0 - 4.8 x10 3/uL) 1.98 Absolute Monos (auto) (0.0 - 0.8 x10 3/uL) 0.48 Absolute Nucleated RBC (0.0 - 0.2 X10 3/uL) 0.0 Immature Gran % (0.0 - 2.0 %) 0.4 Nucleated RBC % (0.0 - 0.0 %) 0.0 Diagnosis, Assessment Plan Free Text A P: Assessment Patient is 54-year-old female present to the hospital complains of pain redness swelling of her right foot with evidence of possible abscess. She did not recall how it started. Patient has foot neuropathy. Temperature was 104. Patient is on currently BKA admitted to the ICU with insulin drip. CT of the right lower extremity revealed 2.3 x 0.8 4.8 cm abscess. Patient is currently on vancomycin and Zosyn. Podiatry consult is currently pending I believe. Plan At this time continue with IV vancomycin and Zosyn. Podiatry consultation for possible abscess drainage. Will follow and make further recommendations based on culture results. Thank you for the consultation. 03/14/24 transferred to [facility] floor 03/13 febrile Tmax 103.1; will continue to follow temperature curve with leukocytosis of 16k; will follow on room air; no acute distress noted reports she believes blister ruptured; dressing to R foot c,d,i - wound care notified reports pain to R foot controlled at this time blood cultures 03/12 negative so far; will follow urine cultures 03/13 Staph aureus will change antibiotic to IV Cefazolin monitor for antibiotic related adverse effects pending transfer to [facility] for podiatry evaluation will continue to follow clinically Recommendations per Dr Burks 03/17 -pending I D of abscess on 03/19 blood cultures 03/12 NGTD urine cultures 03/13 Staph aureus Cont. on IV Cefazolin monitor for antibiotic related adverse effects pending podiatry evaluation will continue to follow clinically Reviewed with Dr Burks 03/18/24 Patient remains afebrile, WBC 11 K Patient reports 1 loose bowel movement this morning, will follow blood cultures 03/12 NGTD urine cultures 03/13 Staph aureus Cont. on IV Cefazolin monitor for antibiotic related adverse effects Pending I D of abscess tomorrow; please send cultures Reviewed with Dr Burks 03/19/24 Patient remains afebrile, WBC 11 K Patient denies diarrhea blood cultures 03/12 no growth final urine cultures 03/13 Staph aureus Cont. on IV Cefazolin monitor for antibiotic related adverse effects Pending I D of abscess today please send cultures Reviewed with Dr Burks 03/20/24 Tmax 100.6. WBC 9K Will have nursing staff remove oldest IV Pending right foot I D scheduled for tomorrow Patient is currently on Ancef Reviewed with Dr. Burks 03/21/24 No further fevers, WBC 10K Pending right foot I D today Patient is currently on Ancef Reviewed with Dr. Burks 03/23 Patient status post 03/21/2024 complex I D right foot abscess, * cultures growing staph aureus Patient is currently on Ancef Recommend Ancef 6 g load continuous infusion via PICC with stop date 04/26/2024. Case management orders placed Recommendations from Dr. Burks Consultants: critical/draw bench operator helper at 0618 at 8973 RPT #:[id number] END OF [id number] 08:47:00 [facility] ([facility]) Hospitalist Progress Note REPORT#:[id number] REPORT STATUS: Signed REPORT INITIALIZATION DATE:03/22/24 TIME: 08 PATIENT: TSERING BRAUN UNIT #: [id number] ROOM/BED: [place] [id number] : 71 AGE: 54 SEX: F ATTEND: Meagan Bowen MD ADM AUTHOR: Meagan Bowen MD REPT SERVICE DT/TIME: 03/22/24 0847 * ALL edits or amendments must be made on the electronic/computer document * Subjective Chief complaint: Right foot pain HPI: 03/14/24 Patient seen today at bedside. No acute overnight events. Patient reports continued right foot pain. Denies fever, chills, chest pain, abdominal pain or dysuria. Comments: Patient is seen and examined. Patient had episode of hypotension yesterday evening after taking [place]. Received albumin 12.5 g IV and midodrine 5 mg PO once. Has dizziness, diaphoresis with hypotension to 86/49 while working with PT today. Started on NS 75 ml/hr x I. Review of Systems All systems rev neg: except as noted Free Text ROS Notes Free Text ROS Notes: Negative except for pertinent positives noted in HPI. Objective General VS/I O: Vital Signs: Date Time Temp Pulse Resp B/P B/P Pulse O2 O2 Flow FiO2 Mean Ox Delivery Rate 03/22 1103 36.9 88 16 106/65 78.6 96 03/22 1045 36.9 89 18 110/68 82.0 95 03/22 0801 36.9 86 16 101/63 75.2 95 03/22 0442 37.2 83 16 114/71 85.6 94 03/21 2349 37.5 89 16 105/64 77.9 98 03/21 1943 88 102/65 77.0 94 03/21 1943 89 99/63 75.0 95 03/21 1844 89 18 91/58 69.0 98 03/21 1840 36.8 94 79/38 51.6 94 03/21 1445 90 127/77 94.1 99 24 hour I O ending at 0700: 03/22 0700 03/21 1900 Intake Total Output Total 1500 Balance -1500 Output, Urine 1500 PATIENT WEIGHT: Weight (lb): 149 Weight (oz): 4.05 Weight (kg): 67.585 Medications: Active Meds + DC'd Last 24 Hrs Ketorolac Tromethamine (TORADOL 30MG INJECTION) 15 MG ONCE ONE IV (DC) Sodium Chloride (SODIUM CHLORIDE 0.9%) 1,000 ML ONCE ONE IV Sodium Chloride (SODIUM CHLORIDE 0.9%) 1,000 ML .[id number] IV Albumin Human (ALBUMINAR 25% 12.5 GM/50 ML) 50 ML ONCE ONE IV (DC) Midodrine (PROAMATINE 5MG TABLET) 5 MG ONCE ONE PO (DC) Acetaminophen (TYLENOL 325MG TABLET) 650 MG PACU ONCE PO (DC) Albuterol Sulfate (PROVENTIL) 3 ML ASDIR PRN NEB (DC) Ephedrine Sulfate (ePHEDrine SULFATE 50MG/ML INJECTION) 5 MG ANES Q5M PRN PRN IV (DC) Fentanyl Citrate (SUBLIMAZE 100MCG/2ML INJECTION) 25 MCG ANES Q5M PRN PRN IV (DC) Fentanyl Citrate (SUBLIMAZE 100MCG/2ML INJECTION) 50 MCG ANES Q5M PRN PRN IV (DC) Hydralazine HCl (APRESOLINE) 5 MG Q10M PRN PRN IV (DC) Hydromorphone HCl (Hydromorphone HCl) 0.5 MG ANES Q5M PRN PRN IV (DC) Labetalol HCl (TRANDATE 5MG/ML INJECTION) 5 MG ANES Q5M PRN PRN IV (DC) Lactated Ringer's (LACTATED RINGERS 1000ML) 1,000 ML .[id number] IV (DC) Meperidine HCl (DEMEROL 50MG/ML INJECTION) 12.5 MG ANES ASDIR PRN IV (DC ) Midazolam HCl (VERSED 2MG/2ML INJECTION) 1 MG ANES Q5M PRN PRN IV (DC) Naloxone HCl (NARCAN 0.4MG/ML INJECTION) 0.4 MG ASDIR PRN IV (DC) Ondansetron HCl (ZOFRAN 4 MG/2 ML) 4 MG ANES ASDIR PRN IV (DC) Promethazine HCl (PHENERGAN 25MG/ML INJECTION) 12.5 MG ASDIR PRN IV (DC) Sodium Chloride (SODIUM CHLORIDE 0.9%) 50 ML Insulin Glargine (Lantus/Semglee) 15 UNIT Q12HR SUBQ Acetaminophen (TYLENOL 325MG TABLET) 650 MG Q4H PRN PRN PO Cefazolin Sodium (Cefazolin Sodium) 2 GM Q8H IV Sodium Chloride (NORMAL SALINE 10ML VIAL) 10 ML Insulin Human Lispro (HumaLOG) 5 UNIT TID MEALS SUBQ Gabapentin (NEURONTIN 100MG CAPSULE) 100 MG TID PO Hydrocodone Bitart/Acetaminophen (NORCO 5-325 TABLET) 1 TAB Q4H PRN PRN PO Morphine Sulfate (morphine SULFATE) 2 MG Q4H PRN PRN IV Insulin Human Lispro (HumaLOG) AGGRESSIVE SLIDING SCALE (steroids, infection, resistant) AC HS 0200 SUBQ Dextrose (GLUCOSE) 16 GM ASDIR PRN PO Dextrose/Water (DEXTROSE 50% 50ML SYRINGE) 12.5 GM ASDIR PRN IV Ondansetron HCl (ZOFRAN 4 MG/2 ML) 4 MG Q4H PRN PRN IV Sodium Chloride (NORMAL SALINE 250ML IV BAG) 250 ML ASDIR PRN IV Physical Exam General appearance: alert, awake, oriented Head/Eyes: atraumatic, normocephalic ENT: moist mucosal membranes, normal dentition Neck: full range of motion, no JVD Cardiovascular: normal capillary refill, normal heart sounds, regular rate rhythm, no heave Respiratory: aerating well, clear to auscultation, symmetric expansion, no distress Abdomen: non-tender, soft, no distention Genitourinary: no flank pain, no urinary catheter Extremities: decreased range of motion, moves all Musculoskeletal: decreased ROM, no CVA tenderness Neuro/GATE SUPERVISOR: alert, oriented X 3, normal speech, no motor deficits Skin: dry, normal temperature Ulcer: Type/cause: Dressing over right foot Results Findings/Data: Laboratory Tests 03/22 03/22 03/22 03/22 03/21 1102 0528 0228 0137 1944 Chemistry Sodium (133 - 145 MMOL/L) 136 Potassium (3.6 - 5.2 MMOL/L) 4.0 Chloride (100 - 108 MMOL/L) 101 Carbon Dioxide (22 - 32 MMOL/L) 33 H BUN (6 - 20 MG/DL) 7 Creatinine (0.60 - 1.00 MG/DL) 0.47 L Estimated GFR (MDRD) (51 - 120) 114 Glucose (65 - 99 MG/DL) 128 H POC Glucose (65 - 99 MG/DL) 195 H 113 H 119 H 165 H Calcium (8.7 - 10.5 MG/DL) 8.2 L Magnesium (1.8 - 2.4 MG/DL) 2.0 03/21 1535 Chemistry POC Glucose (65 - 99 MG/DL) 148 H Laboratory Tests 03/22 1259 Coagulation PT (9.6 - 12.3 SECONDS) 13.2 H INR 1.14 APTT (22.5 - 35.3 SECONDS) 31.2 Laboratory Tests 03/22 0228 Hematology WBC (4.80 - 10.80 x10 3/uL) 11.74 H RBC (4.2 - 5.4 x10 6/uL) 3.02 L Hgb (12.0 - 16.0 G/DL) 8.6 L Hct (37 - 47 %) 26.8 L MCV (81 - 99 FL) 88.7 MCH (27 - 31 PG) 28.5 MCHC (33 - 37 G/DL) 32.1 L RDW Coeff of Rupert (11.5 - 14.5 %) 12.3 Plt Count (150 - 450 x10 3/uL) 341 MPV (7.4 - 10.4 FL) 8.3 Neut % (Auto) (42 - 86 %) 74.6 Lymph % (Auto) (24 - 44 %) 18.2 L [place] % (Auto) (0.0 - 4.0 %) 5.7 H Eos % (Auto) (0.0 - 2.7 %) 0.7 Baso % (Auto) (0.0 - 0.5 %) 0.2 Eos # (Auto) (0.0 - 0.5 x10 3/uL) 0.08 Baso # (Auto) (0.0 - 0.2 x10 3/uL) 0.02 Abs Immat Gran (auto) (0.00 - 0.03 x10 3/uL) 0.07 H Absolute Neuts (auto) (1.8 - 7.7 x10 3/uL) 8.76 H Absolute Lymphs (auto) (1.0 - 4.8 x10 3/uL) 2.14 Absolute Monos (auto) (0.0 - 0.8 x10 3/uL) 0.67 Absolute Nucleated RBC (0.0 - 0.2 X10 3/uL) 0.0 Immature Gran % (0.0 - 2.0 %) 0.6 Nucleated RBC % (0.0 - 0.0 %) 0.0 Diagnosis, Assessment Plan Consultants: critical/draw bench operator helper Free Text DxA P Notes Free text DxA P notes: Assessment and plan Right Foot Cellulitis and Abductor Longus Abscess -Rt foot XR Mild soft tissue swelling -CT RLE 2.3 x 0.8 x 0.8 cm abscess within the proximal abductor hallucis muscle in keeping with an abscess. Edema and phlegmon is seen within the adductor hallucis muscle without abscess. No evidence of osteomyelitis. -Patient currently on Ancef -Textile Machinery Instructor consulted, Dr. Mott. -s/p complex I D right foot abscess 03/21/24. Follow up culture. -ID consulted and recommends Ancef 6 g load continuous infusion via PICC with stop date 04/26/2024. Sepsis (POA) 2/2 above -Patient had episode of hypotension 03/21/24 evening after taking [place]. Received albumin 12.5 g IV and midodrine 5 mg PO once. Has dizziness, diaphoresis with hypotension to 86/49 while working with PT 03/22/24. -Started on NS 75 ml/hr x I -Monitor hemodynamic -Avoid narcotics at this time Diabetic ketoacidosis -Resolved Insulin-dependent type 2 diabetes mellitus poorly controlled with severe hyperglycemia (A1c 13.3) -Hemoglobin A1c 13.3 -Patient on Lantus 15 units sc q 12 hr, Humalog 5 units 3 times daily meals, and aggressive sliding scale -Continue with 1999 ADA diet Hypokalemia -Monitor potassium daily and replace as indicated HTN -Patient currently normotensive on no medication Chronic anemia -Hemoglobin trending slowly downward, will monitor CBC daily. -Iron study compatible with AOCD. Normal vitamin B12 and folate. Moderate malnutrition -Hypoalbuminemia -Nutrition consulted. On supplements. Diet: 1999 ADA with Clarita MILLER Discussed with patient about goals of care. Explained in detail about the various categories of CODE STATUS. Answered all questions. Wishes are to proceed with FULL CODE STATUS. Advanced care planning performed for more than 16 minutes. Long conversation with patient and patient family at bedside regarding hospital course and plan. All questions answered. High complexity medical decision making Total care time spent was 68 minutes Disposition: Case management consulted for home IV ABx and home wound care. at 1421 RPT #:[id number] END OF [id number] 07:52:00 [facility] ([facility]) Infectious Dis. Progress Note REPORT#:[id number] REPORT STATUS: Signed REPORT INITIALIZATION DATE:03/22/24 TIME: 751 PATIENT: TSERING BRAUN UNIT #: [id number] ROOM/BED: [place] [id number] : 71 AGE: 54 SEX: F ATTEND: Meagan Bowen MD ADM AUTHOR: Karey Granger REPT SERVICE DT/TIME: 03/22/24751 * ALL edits or amendments must be made on the electronic/computer document * Subjective HPI: Reason for consultation foot abscess and cellulitis. History of present illness Patient is 54-year-old female present to the hospital complains of pain redness swelling of her right foot with evidence of possible abscess. She did not recall how it started. Patient has foot neuropathy. Temperature was 104. Patient is on currently BKA admitted to the ICU with insulin drip. CT of the right lower extremity revealed 2.3 x 0.8 4.8 cm abscess. Patient is currently on vancomycin and Zosyn. Podiatry consult is currently pending I believe. Review of systems; : patient does not report any headaches or visual disturbances. Rest of the 10 systems are normal or as above. Reviewed all the labs CBC CMP all imaging studies and it systems analyst consultant notes and primary care physician notes. Objective General VS/I O: Vital Signs Date Temp Pulse Resp B/P B/P Mean Pulse Ox FiO2 03/21-03/22 98.2-99.5 81-94 16-18 79-127/38-77 51.6-94.1 94-99 Last Documented: Result Date Time Pulse Ox 94 03/22 442 B/P 114/71 03/22 442 B/P Mean 85.6 03/22 442 Temp 99.0 03/22 442 Pulse 83 03/22 044 Resp 16 03/22 442 O2 Delivery Room air 03/19 1050 Vital Signs: Date Time Temp Pulse Resp B/P B/P Pulse O2 O2 Flow FiO2 Mean Ox Delivery Rate 03/22 442 99.0 83 16 114/71 85.6 94 03/21 2349 99.5 89 16 105/64 77.9 98 03/21 194 88 102/65 77.0 94 03/21 194 89 99/63 75.0 95 03/21 1844 89 18 91/58 69.0 98 03/21 1840 98.2 94 79/38 51.6 94 03/21 1445 90 127/77 94.1 99 03/21 1415 81 115/72 86.3 97 03/21 0823 98.4 82 16 116/72 86.6 96 24 hour I O ending at 0700: 03/22 0700 03/21 1900 Intake Total Output Total 1500 Balance -1500 Output, Urine 1500 PATIENT WEIGHT: Weight (lb): 149 Weight (oz): 4.05 Weight (kg): 67.585 Physical Exam General appearance: alert, awake, oriented Wound/incision: Location: R foot Site condition: dressing clean dry, dressing intact Cardiovascular: normal heart sounds Respiratory: aerating well, symmetric expansion, no distress Abdomen: non-tender, soft Genitourinary: no urinary catheter Extremities: moves all Neuro/GATE SUPERVISOR: alert, oriented X 3 Skin: no rash Ulcer: Type/cause: Dressing over right foot Psychiatry: normal affect, normal judgment/insight, normal mood Results Findings/Data: Laboratory Tests 03/22 03/22 03/22 03/21 03/21 0528 0228 0137 1945 1535 Chemistry Sodium (133 - 145 MMOL/L) 136 Potassium (3.6 - 5.2 MMOL/L) 4.0 Chloride (100 - 108 MMOL/L) 101 Carbon Dioxide (22 - 32 MMOL/L) 33 H BUN (6 - 20 MG/DL) 7 Creatinine (0.60 - 1.00 MG/DL) 0.47 L Estimated GFR (MDRD) (51 - 120) 114 Glucose (65 - 99 MG/DL) 128 H POC Glucose (65 - 99 MG/DL) 113 H 119 H 165 H 148 H Calcium (8.7 - 10.5 MG/DL) 8.2 L Magnesium (1.8 - 2.4 MG/DL) 2.0 03/21 1053 Chemistry POC Glucose (65 - 99 MG/DL) 170 H Laboratory Tests 03/22 0228 Hematology WBC (4.80 - 10.80 x10 3/uL) 11.74 H RBC (4.2 - 5.4 x10 6/uL) 3.02 L Hgb (12.0 - 16.0 G/DL) 8.6 L Hct (37 - 47 %) 26.8 L MCV (81 - 99 FL) 88.7 MCH (27 - 31 PG) 28.5 MCHC (33 - 37 G/DL) 32.1 L RDW Coeff of Rupert (11.5 - 14.5 %) 12.3 Plt Count (150 - 450 x10 3/uL) 341 MPV (7.4 - 10.4 FL) 8.3 Neut % (Auto) (42 - 86 %) 74.6 Lymph % (Auto) (24 - 44 %) 18.2 L [place] % (Auto) (0.0 - 4.0 %) 5.7 H Eos % (Auto) (0.0 - 2.7 %) 0.7 Baso % (Auto) (0.0 - 0.5 %) 0.2 Eos # (Auto) (0.0 - 0.5 x10 3/uL) 0.08 Baso # (Auto) (0.0 - 0.2 x10 3/uL) 0.02 Abs Immat Gran (auto) (0.00 - 0.03 x10 3/uL) 0.07 H Absolute Neuts (auto) (1.8 - 7.7 x10 3/uL) 8.76 H Absolute Lymphs (auto) (1.0 - 4.8 x10 3/uL) 2.14 Absolute Monos (auto) (0.0 - 0.8 x10 3/uL) 0.67 Absolute Nucleated RBC (0.0 - 0.2 X10 3/uL) 0.0 Immature Gran % (0.0 - 2.0 %) 0.6 Nucleated RBC % (0.0 - 0.0 %) 0.0 Diagnosis, Assessment Plan Free Text A P: Assessment Patient is 54-year-old female present to the hospital complains of pain redness swelling of her right foot with evidence of possible abscess. She did not recall how it started. Patient has foot neuropathy. Temperature was 104. Patient is on currently BKA admitted to the ICU with insulin drip. CT of the right lower extremity revealed 2.3 x 0.8 4.8 cm abscess. Patient is currently on vancomycin and Zosyn. Podiatry consult is currently pending I believe. Plan At this time continue with IV vancomycin and Zosyn. Podiatry consultation for possible abscess drainage. Will follow and make further recommendations based on culture results. Thank you for the consultation. 03/14/24 transferred to [facility] floor 03/13 febrile Tmax 103.1; will continue to follow temperature curve with leukocytosis of 16k; will follow on room air; no acute distress noted reports she believes blister ruptured; dressing to R foot c,d,i - wound care notified reports pain to R foot controlled at this time blood cultures 03/12 negative so far; will follow urine cultures 03/13 Staph aureus will change antibiotic to IV Cefazolin monitor for antibiotic related adverse effects pending transfer to [facility] for podiatry evaluation will continue to follow clinically Recommendations per Dr Burks 03/17 -pending I D of abscess on 03/19 blood cultures 03/12 NGTD urine cultures 03/13 Staph aureus Cont. on IV Cefazolin monitor for antibiotic related adverse effects pending podiatry evaluation will continue to follow clinically Reviewed with Dr Burks 03/18/24 Patient remains afebrile, WBC 11 K Patient reports 1 loose bowel movement this morning, will follow blood cultures 03/12 NGTD urine cultures 03/13 Staph aureus Cont. on IV Cefazolin monitor for antibiotic related adverse effects Pending I D of abscess tomorrow; please send cultures Reviewed with Dr Burks 03/19/24 Patient remains afebrile, WBC 11 K Patient denies diarrhea blood cultures 03/12 no growth final urine cultures 03/13 Staph aureus Cont. on IV Cefazolin monitor for antibiotic related adverse effects Pending I D of abscess today please send cultures Reviewed with Dr Burks 03/20/24 Tmax 100.6. WBC 9K Will have nursing staff remove oldest IV Pending right foot I D scheduled for tomorrow Patient is currently on Ancef Reviewed with Dr. Burks 03/21/24 No further fevers, WBC 10K Pending right foot I D today Patient is currently on Ancef Reviewed with Dr. Burks 03/22/24 Patient has been afebrile, WBC 11 K Patient status post 03/21/2024 complex I D right foot abscess, cultures are pending Patient is currently on Ancef Recommend Ancef 6 g load continuous infusion via PICC with stop date 04/26/2024. Case management orders placed Recommendations from Dr. Burks Consultants: critical/draw bench operator helper at 1031 at 2153 RPT #:[id number] END OF [id number] 16:22:00 [facility] ([facility]) Critical Care Progress Note REPORT#:[id number] REPORT STATUS: Signed REPORT INITIALIZATION DATE:03/21/24 TIME: 1621 PATIENT: TSERING BRAUN UNIT #: [id number] ROOM/BED: D331-1 : 71 AGE: 54 SEX: F ATTEND: Meagan Bowen MD ADM AUTHOR: Chapin Bar MD REPT SERVICE DT/TIME: 03/21/241621 * ALL edits or amendments must be made on the electronic/computer document * Subjective Chief complaint: right foot pain Review of Systems ROS Psych: Denies: homicidal ideation, suicidal ideation. All systems rev neg: except as marked Objective General VS/I O Last Documented: Result Date Time Pulse Ox 99 03/21 1445 B/P 127/77 03/21 1445 B/P Mean 94.1 03/21 1445 Pulse 90 03/21 1445 Temp 98.4 03/21 0823 Resp 16 03/21 0823 O2 Delivery Room air 03/19 1050 24 hour I O ending at 0700: 03/21 0700 03/20 1900 Intake Total Output Total 700 900 Balance -700 -900 Number 1 1 Bowel Movements Number 1 Incontinent Voids Output, Urine 700 900 PATIENT WEIGHT: Weight (lb): 149 Weight (oz): 4.05 Weight (kg): 67.585 Medications: Active Meds + DC'd Last 24 Hrs Acetaminophen (TYLENOL 325MG TABLET) 650 MG PACU ONCE PO (DC) Albuterol Sulfate (PROVENTIL) 3 ML ASDIR PRN NEB (DC) Ephedrine Sulfate (ePHEDrine SULFATE 50MG/ML INJECTION) 5 MG ANES Q5M PRN PRN IV (DC) Fentanyl Citrate (SUBLIMAZE 100MCG/2ML INJECTION) 25 MCG ANES Q5M PRN PRN IV (DC) Fentanyl Citrate (SUBLIMAZE 100MCG/2ML INJECTION) 50 MCG ANES Q5M PRN PRN IV (DC) Hydralazine HCl (APRESOLINE) 5 MG Q10M PRN PRN IV (DC) Hydromorphone HCl (Hydromorphone HCl) 0.5 MG ANES Q5M PRN PRN IV (DC) Labetalol HCl (TRANDATE 5MG/ML INJECTION) 5 MG ANES Q5M PRN PRN IV (DC) Lactated Ringer's (LACTATED RINGERS 1000ML) 1,000 ML .[id number] IV (DC) Meperidine HCl (DEMEROL 50MG/ML INJECTION) 12.5 MG ANES ASDIR PRN IV (DC ) Midazolam HCl (VERSED 2MG/2ML INJECTION) 1 MG ANES Q5M PRN PRN IV (DC) Naloxone HCl (NARCAN 0.4MG/ML INJECTION) 0.4 MG ASDIR PRN IV (DC) Ondansetron HCl (ZOFRAN 4 MG/2 ML) 4 MG ANES ASDIR PRN IV (DC) Promethazine HCl (PHENERGAN 25MG/ML INJECTION) 12.5 MG ASDIR PRN IV (DC) Sodium Chloride (SODIUM CHLORIDE 0.9%) 50 ML Fentanyl Citrate (SUBLIMAZE 100MCG/2ML INJECTION) 0 .STK-MED ONE .ROUTE (DCr) Midazolam HCl (VERSED 2MG/2ML INJECTION) 0 .STK-MED ONE .ROUTE (DCr) Lidocaine HCl (XYLOCAINE 1%) 0 .STK-MED ONE .ROUTE (DCr) Propofol (PROPOFOL 20ML AMP) 0 .STK-MED ONE IV (DC) Potassium Chloride (KCL 10 MEQ/100ML) 100 ML ONCE ONE IV (DC) Thrombin (RECOTHROM) 0 .STK-MED ONE TOPICAL (DC) Bupivacaine HCl (MARCAINE 0.25% 30ML SDV) 0 .STK-MED ONE .ROUTE (DC) Sodium Hypochlorite (DAKINS 0.25% (HALF STRENGTH)) 0 .STK-MED ONE TOPICAL (DC) Insulin Glargine (Lantus/Semglee) 15 UNIT Q12HR SUBQ Acetaminophen (TYLENOL 325MG TABLET) 650 MG Q4H PRN PRN PO Cefazolin Sodium (Cefazolin Sodium) 2 GM Q8H IV Sodium Chloride (NORMAL SALINE 10ML VIAL) 10 ML Insulin Human Lispro (HumaLOG) 5 UNIT TID MEALS SUBQ Gabapentin (NEURONTIN 100MG CAPSULE) 100 MG TID PO Hydrocodone Bitart/Acetaminophen (NORCO 5-325 TABLET) 1 TAB Q4H PRN PRN PO Morphine Sulfate (morphine SULFATE) 2 MG Q4H PRN PRN IV Insulin Human Lispro (HumaLOG) AGGRESSIVE SLIDING SCALE (steroids, infection, resistant) AC HS 0200 SUBQ Dextrose (GLUCOSE) 16 GM ASDIR PRN PO Dextrose/Water (DEXTROSE 50% 50ML SYRINGE) 12.5 GM ASDIR PRN IV Ondansetron HCl (ZOFRAN 4 MG/2 ML) 4 MG Q4H PRN PRN IV Sodium Chloride (NORMAL SALINE 250ML IV BAG) 250 ML ASDIR PRN IV Results Findings/Data: Laboratory Tests 03/21/24 0242: [Embedded Image Not Available] Laboratory Tests 03/21 03/21 03/21 03/21 03/21 1535 1053 0534 0242 0242 Chemistry Sodium (133 - 145 MMOL/L) 135 Potassium (3.6 - 5.2 MMOL/L) 3.5 L Chloride (100 - 108 MMOL/L) 100 Carbon Dioxide (22 - 32 MMOL/L) 33 H BUN (6 - 20 MG/DL) 11 Creatinine (0.60 - 1.00 MG/DL) 0.53 L Estimated GFR (MDRD) (51 - 120) 111 Glucose (65 - 99 MG/DL) 201 H POC Glucose (65 - 99 MG/DL) 148 H 170 H 188 H Calcium (8.7 - 10.5 MG/DL) 7.9 L Magnesium (1.8 - 2.4 MG/DL) 2.1 Iron (50 - 170 MCG/DL) 20 L TIBC (280 - 400 MCG/DL) 133 L Iron Saturation (15 - 50 %) 15 Ferritin (3 - 105 NG/ML) 278 H 03/21 03/20 0224 2101 Chemistry POC Glucose (65 - 99 MG/DL) 209 H 211 H Laboratory Tests 03/21 0242 Hematology WBC (4.80 - 10.80 x10 3/uL) 10.78 RBC (4.2 - 5.4 x10 6/uL) 3.12 L Hgb (12.0 - 16.0 G/DL) 8.9 L Hct (37 - 47 %) 27.5 L MCV (81 - 99 FL) 88.1 MCH (27 - 31 PG) 28.5 MCHC (33 - 37 G/DL) 32.4 L RDW Coeff of Rupert (11.5 - 14.5 %) 12.4 Plt Count (150 - 450 x10 3/uL) 360 MPV (7.4 - 10.4 FL) 8.4 Neut % (Auto) (42 - 86 %) 71.2 Lymph % (Auto) (24 - 44 %) 20.0 L [place] % (Auto) (0.0 - 4.0 %) 7.2 H Eos % (Auto) (0.0 - 2.7 %) 0.7 Baso % (Auto) (0.0 - 0.5 %) 0.2 Eos # (Auto) (0.0 - 0.5 x10 3/uL) 0.08 Baso # (Auto) (0.0 - 0.2 x10 3/uL) 0.02 Abs Immat Gran (auto) (0.00 - 0.03 x10 3/uL) 0.08 H Absolute Neuts (auto) (1.8 - 7.7 x10 3/uL) 7.66 Absolute Lymphs (auto) (1.0 - 4.8 x10 3/uL) 2.16 Absolute Monos (auto) (0.0 - 0.8 x10 3/uL) 0.78 Absolute Nucleated RBC (0.0 - 0.2 X10 3/uL) 0.0 Immature Gran % (0.0 - 2.0 %) 0.7 Nucleated RBC % (0.0 - 0.0 %) 0.0 Microbiology: 03/21 1242 FOOT: Fungal Smear - RECD 03/21 124 FOOT: Fungal Culture - RECD 03/21 124 ANAEROBE: Anaerobic Culture - RECD 03/21 1242 ANAEROBE: Gram Stain - RECD 03/21 124 FOOT: Wound Culture - RECD 03/21 1242 FOOT: Gram Stain - RECD Results: labs reviewed, vital signs stable, x-ray personally reviewed, current med profile rev'd Free Text Obj Notes Free Text Obj Notes: General appearance: chronically ill appearing, alert, awake, oriented, no acute distress, pleasant, conversational, mental status normal, no respiratory distress Head/eyes: atraumatic, clear cornea, PERRLA ENT: dry mucosal membrane, poor dentition Neck: full range of motion, non-tender, no JVD, no masses or swelling Cardiovascular: normal capillary refill, normal heart sounds, regular rate and rhythm, normal S1/S2, no ectopy Respiratory: aerating well, clear to auscultation, symmetric expansion, no distress Abdomen: soft, non-tender Genitourinary: no bladder distention, no flank pain, no urinary catheter Extremities: edema (to RLE), moves all, normal capillary refill, normal range of motion, no calf tenderness, no clubbing, no cyanosis Musculoskeletal normal inspection, painless range of motion Neuro/GATE SUPERVISOR: alert, oriented X 3, normal speech, reflexes equal bilat, no motor deficits, no sensory deficits Skin: abscess (to right foot), dry, intact, normal color, normal temperature, no rash Wound/incision: Location: right foot blister Site condition: no drainage Psychiatry: normal affect, normal judgment/insight, normal mood, not homicidal, not suicidal, no hallucinations Diagnosis, Assessment Plan Free text A P: Acute renal failure Diabetic ketoacidosis Severe sepsis Right foot abscess Uncontrolled type 2 diabetes Normocytic anemia Hypokalemia Patient's mentation appears to be at baseline, no acute neuroconcerns She is saturating well on room air Hemodynamically stable, will continue to monitor closely Vasopressors as needed to maintain MAP greater than 65 Monitor renal function closely Strict I's and O's Avoid nephrotoxic medications Transitioned to basal bolus regimen Continue with antibiotics as per ID ID is following Tolerating a diet DVT prophylaxis GI prophylaxis CODE STATUS to full code Medical decision making: High complexity Continue assessment prior at 1628 [facility] #:[id number] END OF [id number] 12:[id number] [place], [place] PATIENT NAME: TSREING BRAUN ADMIT DATE: 03/13/24 ACCOUNT NO: [id number] ROOM NO: D331 AGE: 54 REPORT TYPE: OPERATIVE REPORT SEX: F ADMITTING PHYSICIAN:Meagan Bowen MD ATTENDING PHYSICIAN:Meagan Bowen MD OPERATION DATE: 03/21/2024 START TIME: 12:30 p.m. PREOPERATIVE DIAGNOSIS: Right foot abscess. POSTOPERATIVE DIAGNOSES: Right foot abscess. PROCEDURE: Complex incision and drainage, right foot abscess. TECHNIQUE: Complex incision and drainage, right foot abscess. PRIMARY SURGEON: Juve Mott DPM. FRUIT CUTTER: None. ANESTHESIA: MAC with local. OPERATIVE FINDINGS: Copious purulence expressed medial right hindfoot wound with sinus tract extending distal medial forefoot, plantar lateral mid foot and proximal medial ankle. COMPLICATIONS: None. ESTIMATED BLOOD LOSS: 5 mL. SPECIMENS: Culture swab to micro. IMPLANTS: None. DESCRIPTION OF PROCEDURE: The patient was transported to the operating room and placed supine on the operating room table. After adequate IV sedation was obtained, a local infiltrative block consisting of 15 mL of 0.25% bupivacaine plain was infiltrated as a tibial nerve block and a saphenous nerve block to the right ankle. Right lower extremity was prepped and draped in the usual aseptic fashion. A hemostat was utilized to identify sinus tract from the medial ankle extending distally, medially and proximally. Incision was created distal to the sinus tract 2 cm in length. The surgical site was copiously irrigated with sterile saline using bulb flush syringe and pulse lavage. The sinus tracts were packed with half-inch iodoform packing, Dakin's moistened 4 x 4s and the incision was reapproximated with 2-0 Prolene. The wound was dressed with 4 x 4's, ABD, Kerlix, and Richard. The patient tolerated the above procedure and anesthesia well without complication and was transported to the PACU with vital signs stable and neurovascular status intact to preoperative levels right foot. PATIENT NAME: TSERING BRAUN After a period of postoperative monitoring, the patient will be admitted to floors with instructions to remain nonweightbearing to right lower extremity except toe touch transfers in a surgical shoe with crutches. Keep dressings clean, dry and intact, keep right lower extremity elevated and compressed while in bed. Dictated By: Juve Mott DPM Date Dictated: 03/21/2024 12:59:15 Date Transcribed: 03/21/2024 17:52:51 KAMERON/MONTY/HALLIE Receipt ID: [id number] Authenticated by Bob Mott DPM On 03/23/2024 08:36:12 AM at 0836 PATIENT NAME: TSERING BRAUN 12:55:00 [facility] ([facility]) Operative Note - Full REPORT#:[id number] REPORT STATUS: Signed REPORT INITIALIZATION DATE:03/21/24 TIME: 1254 PATIENT: TSERING BRAUN UNIT #: [id number] ROOM/BED: [place] [id number] : 71 AGE: 54 SEX: F ATTEND: Meagan Bowen MD ADM AUTHOR: Juve Mott DPM REPT SERVICE DT/TIME: 03/21/24 1255 * ALL edits or amendments must be made on the electronic/computer document * Operative Report Start date: 03/21/24 Start time: 1229 Pre-procedure diagnosis: Right foot abscess Post-procedure diagnosis: same Procedures performed: Complex I D right foot abscess Technique/Procedure: same Primary Surgeon: Juve Mott DPM Treating Engineer Helper(s): none Anesthesia: local anesthesia, monitored anes. care Operative findings: Copious purulence expressed medial right hindfoot wiht sinus tract exending distal medial forefoot, plantar lateral midfoot and proximal medial ankle. Complications: none Estimated blood loss in ml's: 5cc Specimens removed/altered: culture swab to micro Implant(s): none at 1257 RPT #:[id number] END OF [id number] 10:59:00 [facility] ([facility]) Critical Care Progress Note REPORT#:[id number] REPORT STATUS: Signed REPORT INITIALIZATION DATE:03/21/24 TIME: 1058 PATIENT: TSERING BRAUN UNIT #: [id number] ROOM/BED: [place] [address] : 71 AGE: 54 SEX: F ATTEND: Meagan Bowen MD ADM AUTHOR: Chapin Bar MD REPT SERVICE DT/TIME: 03/20/24 1059 * ALL edits or amendments must be made on the electronic/computer document * Subjective Chief complaint: right foot pain Comments: Late entry not for DOS - 03/20/24 Review of Systems ROS Psych: Denies: homicidal ideation, suicidal ideation. All systems rev neg: except as marked Objective General VS/I O Last Documented: Result Date Time Pulse Ox 96 03/21 0823 B/P 116/72 03/21 0823 B/P Mean 86.6 03/21 0823 Temp 98.4 03/21 0823 Pulse 82 03/21 0823 Resp 16 03/21 0823 O2 Delivery Room air 03/19 1050 24 hour I O ending at 0700: 03/21 0700 03/20 1900 Intake Total Output Total 700 900 Balance -700 -900 Number 1 1 Bowel Movements Number 1 Incontinent Voids Output, Urine 700 900 PATIENT WEIGHT: Weight (lb): 149 Weight (oz): 4.05 Weight (kg): 67.585 Medications: Active Meds + DC'd Last 24 Hrs Potassium Chloride (KCL 10 MEQ/100ML) 100 ML ONCE ONE IV Thrombin (RECOTHROM) 0 .STK-MED ONE TOPICAL (DC) Bupivacaine HCl (MARCAINE 0.25% 30ML SDV) 0 .STK-MED ONE .ROUTE (DC) Sodium Hypochlorite (DAKINS 0.25% (HALF STRENGTH)) 0 .STK-MED ONE TOPICAL (DC) Insulin Glargine (Lantus/Semglee) 15 UNIT Q12HR SUBQ Acetaminophen (TYLENOL 325MG TABLET) 650 MG Q4H PRN PRN PO Cefazolin Sodium (Cefazolin Sodium) 2 GM Q8H IV Sodium Chloride (NORMAL SALINE 10ML VIAL) 10 ML Insulin Human Lispro (HumaLOG) 5 UNIT TID MEALS SUBQ Gabapentin (NEURONTIN 100MG CAPSULE) 100 MG TID PO Hydrocodone Bitart/Acetaminophen (NORCO 5-325 TABLET) 1 TAB Q4H PRN PRN PO Morphine Sulfate (morphine SULFATE) 2 MG Q4H PRN PRN IV Insulin Human Lispro (HumaLOG) AGGRESSIVE SLIDING SCALE (steroids, infection, resistant) AC HS 0200 SUBQ Dextrose (GLUCOSE) 16 GM ASDIR PRN PO Dextrose/Water (DEXTROSE 50% 50ML SYRINGE) 12.5 GM ASDIR PRN IV Ondansetron HCl (ZOFRAN 4 MG/2 ML) 4 MG Q4H PRN PRN IV Sodium Chloride (NORMAL SALINE 250ML IV BAG) 250 ML ASDIR PRN IV Results Findings/Data: Laboratory Tests 03/21/24 0242: [Embedded Image Not Available] Laboratory Tests 03/21 03/21 03/21 03/21 03/21 1053 0534 0242 0242 0224 Chemistry Sodium (133 - 145 MMOL/L) 135 Potassium (3.6 - 5.2 MMOL/L) 3.5 L Chloride (100 - 108 MMOL/L) 100 Carbon Dioxide (22 - 32 MMOL/L) 33 H BUN (6 - 20 MG/DL) 11 Creatinine (0.60 - 1.00 MG/DL) 0.53 L Estimated GFR (MDRD) (51 - 120) 111 Glucose (65 - 99 MG/DL) 201 H POC Glucose (65 - 99 MG/DL) 170 H 188 H 209 H Calcium (8.7 - 10.5 MG/DL) 7.9 L Magnesium (1.8 - 2.4 MG/DL) 2.1 Iron (50 - 170 MCG/DL) 20 L TIBC (280 - 400 MCG/DL) 133 L Iron Saturation (15 - 50 %) 15 Ferritin (3 - 105 NG/ML) 278 H 03/20 03/20 2101 1557 Chemistry POC Glucose (65 - 99 MG/DL) 211 H 190 H Laboratory Tests 03/21 0242 Hematology WBC (4.80 - 10.80 x10 3/uL) 10.78 RBC (4.2 - 5.4 x10 6/uL) 3.12 L Hgb (12.0 - 16.0 G/DL) 8.9 L Hct (37 - 47 %) 27.5 L MCV (81 - 99 FL) 88.1 MCH (27 - 31 PG) 28.5 MCHC (33 - 37 G/DL) 32.4 L RDW Coeff of Rupert (11.5 - 14.5 %) 12.4 Plt Count (150 - 450 x10 3/uL) 360 MPV (7.4 - 10.4 FL) 8.4 Neut % (Auto) (42 - 86 %) 71.2 Lymph % (Auto) (24 - 44 %) 20.0 L [place] % (Auto) (0.0 - 4.0 %) 7.2 H Eos % (Auto) (0.0 - 2.7 %) 0.7 Baso % (Auto) (0.0 - 0.5 %) 0.2 Eos # (Auto) (0.0 - 0.5 x10 3/uL) 0.08 Baso # (Auto) (0.0 - 0.2 x10 3/uL) 0.02 Abs Immat Gran (auto) (0.00 - 0.03 x10 3/uL) 0.08 H Absolute Neuts (auto) (1.8 - 7.7 x10 3/uL) 7.66 Absolute Lymphs (auto) (1.0 - 4.8 x10 3/uL) 2.16 Absolute Monos (auto) (0.0 - 0.8 x10 3/uL) 0.78 Absolute Nucleated RBC (0.0 - 0.2 X10 3/uL) 0.0 Immature Gran % (0.0 - 2.0 %) 0.7 Nucleated RBC % (0.0 - 0.0 %) 0.0 Results: labs reviewed, vital signs stable, x-ray personally reviewed, current med profile rev'd Free Text Obj Notes Free Text Obj Notes: General appearance: chronically ill appearing, alert, awake, oriented, no acute distress, pleasant, conversational, mental status normal, no respiratory distress Head/eyes: atraumatic, clear cornea, PERRLA ENT: dry mucosal membrane, poor dentition Neck: full range of motion, non-tender, no JVD, no masses or swelling Cardiovascular: normal capillary refill, normal heart sounds, regular rate and rhythm, normal S1/S2, no ectopy Respiratory: aerating well, clear to auscultation, symmetric expansion, no distress Abdomen: soft, non-tender Genitourinary: no bladder distention, no flank pain, no urinary catheter Extremities: edema (to RLE), moves all, normal capillary refill, normal range of motion, no calf tenderness, no clubbing, no cyanosis Musculoskeletal normal inspection, painless range of motion Neuro/GATE SUPERVISOR: alert, oriented X 3, normal speech, reflexes equal bilat, no motor deficits, no sensory deficits Skin: abscess (to right foot), dry, intact, normal color, normal temperature, no rash Wound/incision: Location: right foot blister Site condition: no drainage Psychiatry: normal affect, normal judgment/insight, normal mood, not homicidal, not suicidal, no hallucinations Diagnosis, Assessment Plan Free text A P: Acute renal failure Diabetic ketoacidosis Severe sepsis Right foot abscess Uncontrolled type 2 diabetes Normocytic anemia Hypokalemia Patient's mentation appears to be at baseline, no acute neuroconcerns She is saturating well on room air Hemodynamically stable, will continue to monitor closely Vasopressors as needed to maintain MAP greater than 65 Monitor renal function closely Strict I's and O's Avoid nephrotoxic medications Transitioned to basal bolus regimen Continue with antibiotics as per ID ID is following Tolerating a diet DVT prophylaxis GI prophylaxis CODE STATUS to full code Medical decision making: High complexity Continue assessment prior Late entry not for DOS - 03/20/24 at 1100 RPT #:[id number] END OF [id number] 09:40:00 [facility] ([facility]) Hospitalist Progress Note REPORT#:[id number] REPORT STATUS: Signed REPORT INITIALIZATION DATE:03/21/24 TIME: 0940 PATIENT: TSERING BRAUN UNIT #: [id number] ROOM/BED: [facility]-1 : 71 AGE: 54 SEX: F ATTEND: Meagan Bowen MD ADM AUTHOR: Meagan Bowen MD REPT SERVICE DT/TIME: 03/21/24 0940 * ALL edits or amendments must be made on the electronic/computer document * Subjective Chief complaint: Right foot pain HPI: 03/14/24 Patient seen today at bedside. No acute overnight events. Patient reports continued right foot pain. Denies fever, chills, chest pain, abdominal pain or dysuria. Comments: Patient is seen and examined. Resting in bed. No complaint. Review of Systems All systems rev neg: except as noted Free Text ROS Notes Free Text ROS Notes: Negative except for pertinent positives noted in HPI. Objective General VS/I O: Vital Signs: Date Time Temp Pulse Resp B/P B/P Pulse O2 O2 Flow FiO2 Mean Ox Delivery Rate 03/21 0823 36.9 82 16 116/72 86.6 96 03/21 0400 37.2 90 16 124/77 92.6 97 03/20 2331 37.6 96 16 103/66 78.1 96 03/20 1924 37.4 98 16 101/65 77.1 96 03/20 1722 37.6 88 16 132/75 94.2 97 24 hour I O ending at 0700: 03/21 0700 03/20 1900 Intake Total Output Total 700 900 Balance -700 -900 Number 1 1 Bowel Movements Number 1 Incontinent Voids Output, Urine 700 900 PATIENT WEIGHT: Weight (lb): 149 Weight (oz): 4.05 Weight (kg): 67.585 Medications: Active Meds + DC'd Last 24 Hrs Acetaminophen (TYLENOL 325MG TABLET) 650 MG PACU ONCE PO (CKD) Albuterol Sulfate (PROVENTIL) 3 ML ASDIR PRN NEB (CKD) Ephedrine Sulfate (ePHEDrine SULFATE 50MG/ML INJECTION) 5 MG ANES Q5M PRN PRN IV Fentanyl Citrate (SUBLIMAZE 100MCG/2ML INJECTION) 25 MCG ANES Q5M PRN PRN IV Fentanyl Citrate (SUBLIMAZE 100MCG/2ML INJECTION) 50 MCG ANES Q5M PRN PRN IV Hydralazine HCl (APRESOLINE) 5 MG Q10M PRN PRN IV Hydromorphone HCl (Hydromorphone HCl) 0.5 MG ANES Q5M PRN PRN IV Labetalol HCl (TRANDATE 5MG/ML INJECTION) 5 MG ANES Q5M PRN PRN IV Lactated Ringer's (LACTATED RINGERS 1000ML) 1,000 ML .[id number] IV Meperidine HCl (DEMEROL 50MG/ML INJECTION) 12.5 MG ANES ASDIR PRN IV Midazolam HCl (VERSED 2MG/2ML INJECTION) 1 MG ANES Q5M PRN PRN IV Naloxone HCl (NARCAN 0.4MG/ML INJECTION) 0.4 MG ASDIR PRN IV Ondansetron HCl (ZOFRAN 4 MG/2 ML) 4 MG ANES ASDIR PRN IV Promethazine HCl (PHENERGAN 25MG/ML INJECTION) 12.5 MG ASDIR PRN IV Sodium Chloride (SODIUM CHLORIDE 0.9%) 50 ML Fentanyl Citrate (SUBLIMAZE 100MCG/2ML INJECTION) 0 .STK-MED ONE .ROUTE (DCr) Midazolam HCl (VERSED 2MG/2ML INJECTION) 0 .STK-MED ONE .ROUTE (DCr) Lidocaine HCl (XYLOCAINE 1%) 0 .STK-MED ONE .ROUTE (DCr) Propofol (PROPOFOL 20ML AMP) 0 .STK-MED ONE IV (DC) Potassium Chloride (KCL 10 MEQ/100ML) 100 ML ONCE ONE IV (DC) Thrombin (RECOTHROM) 0 .STK-MED ONE TOPICAL (DC) Bupivacaine HCl (MARCAINE 0.25% 30ML SDV) 0 .STK-MED ONE .ROUTE (DC) Sodium Hypochlorite (DAKINS 0.25% (HALF STRENGTH)) 0 .STK-MED ONE TOPICAL (DC) Insulin Glargine (Lantus/Semglee) 15 UNIT Q12HR SUBQ Acetaminophen (TYLENOL 325MG TABLET) 650 MG Q4H PRN PRN PO Cefazolin Sodium (Cefazolin Sodium) 2 GM Q8H IV Sodium Chloride (NORMAL SALINE 10ML VIAL) 10 ML Insulin Human Lispro (HumaLOG) 5 UNIT TID MEALS SUBQ Gabapentin (NEURONTIN 100MG CAPSULE) 100 MG TID PO Hydrocodone Bitart/Acetaminophen (NORCO 5-325 TABLET) 1 TAB Q4H PRN PRN PO Morphine Sulfate (morphine SULFATE) 2 MG Q4H PRN PRN IV Insulin Human Lispro (HumaLOG) AGGRESSIVE SLIDING SCALE (steroids, infection, resistant) AC HS 0200 SUBQ Dextrose (GLUCOSE) 16 GM ASDIR PRN PO Dextrose/Water (DEXTROSE 50% 50ML SYRINGE) 12.5 GM ASDIR PRN IV Ondansetron HCl (ZOFRAN 4 MG/2 ML) 4 MG Q4H PRN PRN IV Sodium Chloride (NORMAL SALINE 250ML IV BAG) 250 ML ASDIR PRN IV Physical Exam General appearance: alert, awake, oriented Head/Eyes: atraumatic, normocephalic ENT: moist mucosal membranes, normal dentition Neck: full range of motion, no JVD Cardiovascular: normal capillary refill, normal heart sounds, regular rate rhythm, no heave Respiratory: aerating well, clear to auscultation, symmetric expansion, no distress Abdomen: non-tender, soft, no distention Genitourinary: no flank pain, no urinary catheter Extremities: decreased range of motion, moves all Musculoskeletal: decreased ROM, no CVA tenderness Neuro/GATE SUPERVISOR: alert, oriented X 3, normal speech, no motor deficits Skin: dry, normal temperature Ulcer: Type/cause: Dressing over right foot Results Findings/Data: Laboratory Tests 03/21 03/21 03/21 03/21 03/21 1053 0534 0242 0242 0224 Chemistry Sodium (133 - 145 MMOL/L) 135 Potassium (3.6 - 5.2 MMOL/L) 3.5 L Chloride (100 - 108 MMOL/L) 100 Carbon Dioxide (22 - 32 MMOL/L) 33 H BUN (6 - 20 MG/DL) 11 Creatinine (0.60 - 1.00 MG/DL) 0.53 L Estimated GFR (MDRD) (51 - 120) 111 Glucose (65 - 99 MG/DL) 201 H POC Glucose (65 - 99 MG/DL) 170 H 188 H 209 H Calcium (8.7 - 10.5 MG/DL) 7.9 L Magnesium (1.8 - 2.4 MG/DL) 2.1 Iron (50 - 170 MCG/DL) 20 L TIBC (280 - 400 MCG/DL) 133 L Iron Saturation (15 - 50 %) 15 Ferritin (3 - 105 NG/ML) 278 H 03/20 03/20 2101 1557 Chemistry POC Glucose (65 - 99 MG/DL) 211 H 190 H Laboratory Tests 03/21 0242 Hematology WBC (4.80 - 10.80 x10 3/uL) 10.78 RBC (4.2 - 5.4 x10 6/uL) 3.12 L Hgb (12.0 - 16.0 G/DL) 8.9 L Hct (37 - 47 %) 27.5 L MCV (81 - 99 FL) 88.1 MCH (27 - 31 PG) 28.5 MCHC (33 - 37 G/DL) 32.4 L RDW Coeff of Rupert (11.5 - 14.5 %) 12.4 Plt Count (150 - 450 x10 3/uL) 360 MPV (7.4 - 10.4 FL) 8.4 Neut % (Auto) (42 - 86 %) 71.2 Lymph % (Auto) (24 - 44 %) 20.0 L [place] % (Auto) (0.0 - 4.0 %) 7.2 H Eos % (Auto) (0.0 - 2.7 %) 0.7 Baso % (Auto) (0.0 - 0.5 %) 0.2 Eos # (Auto) (0.0 - 0.5 x10 3/uL) 0.08 Baso # (Auto) (0.0 - 0.2 x10 3/uL) 0.02 Abs Immat Gran (auto) (0.00 - 0.03 x10 3/uL) 0.08 H Absolute Neuts (auto) (1.8 - 7.7 x10 3/uL) 7.66 Absolute Lymphs (auto) (1.0 - 4.8 x10 3/uL) 2.16 Absolute Monos (auto) (0.0 - 0.8 x10 3/uL) 0.78 Absolute Nucleated RBC (0.0 - 0.2 X10 3/uL) 0.0 Immature Gran % (0.0 - 2.0 %) 0.7 Nucleated RBC % (0.0 - 0.0 %) 0.0 Diagnosis, Assessment Plan Consultants: critical/draw bench operator helper Free Text DxA P Notes Free text DxA P notes: Assessment and plan Right Foot Cellulitis and Abductor Longus Abscess -Rt foot XR Mild soft tissue swelling -CT RLE 2.3 x 0.8 x 0.8 cm abscess within the proximal abductor hallucis muscle in keeping with an abscess. Edema and phlegmon is seen within the adductor hallucis muscle without abscess. No evidence of osteomyelitis. -Patient currently on Ancef -Textile Machinery Instructor consulted, Dr. Mott. -s/p complex I D right foot abscess 03/21/24. Follow up culture. Sepsis (POA) 2/2 above -Resolved Diabetic ketoacidosis -Resolved Insulin-dependent type 2 diabetes mellitus poorly controlled with severe hyperglycemia (A1c 13.3) -Hemoglobin A1c 13.3 -Patient on Lantus 15 units sc q 12 hr, Humalog 5 units 3 times daily meals, and aggressive sliding scale -Continue with 1999 ADA diet Hypokalemia -K 3.5. KCl 10 mEq IV. -Monitor potassium daily and replace as indicated HTN -Patient currently normotensive on no medication Chronic anemia -Hemoglobin trending slowly downward, will monitor CBC daily. -Iron study compatible with AOCD. Pending vitamin B12 and folate. Moderate malnutrition -Hypoalbuminemia -Glucerna shake TID Diet: 1999 ADA with Glucerna shake TID Discussed with patient about goals of care. Explained in detail about the various categories of CODE STATUS. Answered all questions. Wishes are to proceed with FULL CODE STATUS. Advanced care planning performed for more than 16 minutes. Long conversation with patient and patient family at bedside regarding hospital course and plan. All questions answered. High complexity medical decision making Total care time spent was 68 minutes at 1343 RPT #:[id number] END OF [id number] 08:28:00 [facility] ([facility]) Infectious Dis. Progress Note REPORT#:[id number] REPORT STATUS: Signed REPORT INITIALIZATION DATE:03/21/24 TIME: 827 PATIENT: TSERING BRAUN UNIT #: [id number] ROOM/BED: [facility] : 71 AGE: 54 SEX: F ATTEND: Meagan Bowen MD ADM AUTHOR: Karey Granger APRNNP REPT SERVICE DT/TIME: 03/21/24 08 * ALL edits or amendments must be made on the electronic/computer document * Subjective HPI: Reason for consultation foot abscess and cellulitis. History of present illness Patient is 54-year-old female present to the hospital complains of pain redness swelling of her right foot with evidence of possible abscess. She did not recall how it started. Patient has foot neuropathy. Temperature was 104. Patient is on currently BKA admitted to the ICU with insulin drip. CT of the right lower extremity revealed 2.3 x 0.8 4.8 cm abscess. Patient is currently on vancomycin and Zosyn. Podiatry consult is currently pending I believe. Review of systems; : patient does not report any headaches or visual disturbances. Rest of the 10 systems are normal or as above. Reviewed all the labs CBC CMP all imaging studies and it systems analyst consultant notes and primary care physician notes. Objective General VS/I O: Vital Signs Date Temp Pulse Resp B/P B/P Mean Pulse Ox FiO2 03/20-03/21 98.4-99.7 82-98 16 101-133/65-77 77.1-95.7 96-97 Last Documented: Result Date Time Pulse Ox 96 03/21 0823 B/P 116/72 03/21 0823 B/P Mean 86.6 03/21 0823 Temp 98.4 03/21 0823 Pulse 82 03/21 0823 Resp 16 03/21 0823 O2 Delivery Room air 03/19 1050 Vital Signs: Date Time Temp Pulse Resp B/P B/P Pulse O2 O2 Flow FiO2 Mean Ox Delivery Rate 03/21 0823 98.4 82 16 116/72 86.6 96 03/21 0400 99.0 90 16 124/77 92.6 97 03/20 2331 99.7 96 16 103/66 78.1 96 03/20 1924 99.3 98 16 101/65 77.1 96 03/20 1722 99.7 88 16 132/75 94.2 97 03/20 1126 99.5 90 16 133/77 95.7 97 24 hour I O ending at 0700: 03/21 0700 03/20 1900 Intake Total Output Total 700 900 Balance -700 -900 Number 1 1 Bowel Movements Number 1 Incontinent Voids Output, Urine 700 900 PATIENT WEIGHT: Weight (lb): 149 Weight (oz): 4.05 Weight (kg): 67.585 Physical Exam General appearance: alert, awake, oriented Wound/incision: Location: R foot Site condition: dressing clean dry, dressing intact Cardiovascular: normal heart sounds Respiratory: aerating well, symmetric expansion, no distress Abdomen: non-tender, soft Genitourinary: no urinary catheter Extremities: moves all Neuro/GATE SUPERVISOR: alert, oriented X 3 Skin: no rash Ulcer: Type/cause: Dressing over right foot Psychiatry: normal affect, normal judgment/insight, normal mood Results Findings/Data: Laboratory Tests 03/21 03/21 03/21 03/21 03/20 0534 0242 0242 0224 2101 Chemistry Sodium (133 - 145 MMOL/L) 135 Potassium (3.6 - 5.2 MMOL/L) 3.5 L Chloride (100 - 108 MMOL/L) 100 Carbon Dioxide (22 - 32 MMOL/L) 33 H BUN (6 - 20 MG/DL) 11 Creatinine (0.60 - 1.00 MG/DL) 0.53 L Estimated GFR (MDRD) (51 - 120) 111 Glucose (65 - 99 MG/DL) 201 H POC Glucose (65 - 99 MG/DL) 188 H 209 H 211 H Calcium (8.7 - 10.5 MG/DL) 7.9 L Magnesium (1.8 - 2.4 MG/DL) 2.1 Iron (50 - 170 MCG/DL) 20 L TIBC (280 - 400 MCG/DL) 133 L Iron Saturation (15 - 50 %) 15 Ferritin (3 - 105 NG/ML) 278 H 03/20 03/20 1557 1039 Chemistry POC Glucose (65 - 99 MG/DL) 190 H 119 H Laboratory Tests 03/21 0242 Hematology WBC (4.80 - 10.80 x10 3/uL) 10.78 RBC (4.2 - 5.4 x10 6/uL) 3.12 L Hgb (12.0 - 16.0 G/DL) 8.9 L Hct (37 - 47 %) 27.5 L MCV (81 - 99 FL) 88.1 MCH (27 - 31 PG) 28.5 MCHC (33 - 37 G/DL) 32.4 L RDW Coeff of Rupert (11.5 - 14.5 %) 12.4 Plt Count (150 - 450 x10 3/uL) 360 MPV (7.4 - 10.4 FL) 8.4 Neut % (Auto) (42 - 86 %) 71.2 Lymph % (Auto) (24 - 44 %) 20.0 L [place] % (Auto) (0.0 - 4.0 %) 7.2 H Eos % (Auto) (0.0 - 2.7 %) 0.7 Baso % (Auto) (0.0 - 0.5 %) 0.2 Eos # (Auto) (0.0 - 0.5 x10 3/uL) 0.08 Baso # (Auto) (0.0 - 0.2 x10 3/uL) 0.02 Abs Immat Gran (auto) (0.00 - 0.03 x10 3/uL) 0.08 H Absolute Neuts (auto) (1.8 - 7.7 x10 3/uL) 7.66 Absolute Lymphs (auto) (1.0 - 4.8 x10 3/uL) 2.16 Absolute Monos (auto) (0.0 - 0.8 x10 3/uL) 0.78 Absolute Nucleated RBC (0.0 - 0.2 X10 3/uL) 0.0 Immature Gran % (0.0 - 2.0 %) 0.7 Nucleated RBC % (0.0 - 0.0 %) 0.0 Diagnosis, Assessment Plan Free Text A P: Assessment Patient is 54-year-old female present to the hospital complains of pain redness swelling of her right foot with evidence of possible abscess. She did not recall how it started. Patient has foot neuropathy. Temperature was 104. Patient is on currently BKA admitted to the ICU with insulin drip. CT of the right lower extremity revealed 2.3 x 0.8 4.8 cm abscess. Patient is currently on vancomycin and Zosyn. Podiatry consult is currently pending I believe. Plan At this time continue with IV vancomycin and Zosyn. Podiatry consultation for possible abscess drainage. Will follow and make further recommendations based on culture results. Thank you for the consultation. 03/14/24 transferred to [facility] floor 03/13 febrile Tmax 103.1; will continue to follow temperature curve with leukocytosis of 16k; will follow on room air; no acute distress noted reports she believes blister ruptured; dressing to R foot c,d,i - wound care notified reports pain to R foot controlled at this time blood cultures 03/12 negative so far; will follow urine cultures 03/13 Staph aureus will change antibiotic to IV Cefazolin monitor for antibiotic related adverse effects pending transfer to [facility] for podiatry evaluation will continue to follow clinically Recommendations per Dr Burks 03/17 -pending I D of abscess on 03/19 blood cultures 03/12 NGTD urine cultures 03/13 Staph aureus Cont. on IV Cefazolin monitor for antibiotic related adverse effects pending podiatry evaluation will continue to follow clinically Reviewed with Dr Burks 03/18/24 Patient remains afebrile, WBC 11 K Patient reports 1 loose bowel movement this morning, will follow blood cultures 03/12 NGTD urine cultures 03/13 Staph aureus Cont. on IV Cefazolin monitor for antibiotic related adverse effects Pending I D of abscess tomorrow; please send cultures Reviewed with Dr Burks 03/19/24 Patient remains afebrile, WBC 11 K Patient denies diarrhea blood cultures 03/12 no growth final urine cultures 03/13 Staph aureus Cont. on IV Cefazolin monitor for antibiotic related adverse effects Pending I D of abscess today please send cultures Reviewed with Dr Burks 03/20/24 Tmax 100.6. WBC 9K Will have nursing staff remove oldest IV Pending right foot I D scheduled for tomorrow Patient is currently on Ancef Reviewed with Dr. Burks 03/20/24 No further fevers, WBC 10K Pending right foot I D today Patient is currently on Ancef Reviewed with Dr. Burks Consultants: critical/draw bench operator helper at 1339 at [id number] [facility] #:[id number] END OF [id number] 08:59:00 [facility] ([facility]) Hospitalist Progress Note REPORT#:[id number] REPORT STATUS: Signed REPORT INITIALIZATION DATE:03/20/24 TIME: 858 PATIENT: TSERING BRAUN UNIT #: [id number] ROOM/BED: [facility]31-1 : 71 AGE: 54 SEX: F ATTEND: Meagan Bowen MD ADM AUTHOR: Meagan Bowen MD REPT SERVICE DT/TIME: 03/20/24 0859 * ALL edits or amendments must be made on the electronic/computer document * Subjective Chief complaint: Right foot pain HPI: 03/14/24 Patient seen today at bedside. No acute overnight events. Patient reports continued right foot pain. Denies fever, chills, chest pain, abdominal pain or dysuria. Comments: Patient is seen and examined. Resting in bed. No new complaint. Had fever up to 38.1 last night. Review of Systems All systems rev neg: except as noted Free Text ROS Notes Free Text ROS Notes: Negative except for pertinent positives noted in HPI. Objective General VS/I O: Vital Signs: Date Time Temp Pulse Resp B/P B/P Pulse O2 O2 Flow FiO2 Mean Ox Delivery Rate 03/20 1126 37.5 90 16 133/77 95.7 97 03/20 0811 36.9 90 16 109/69 82.6 93 03/20 0322 36.7 80 16 120/76 90.5 99 03/19 2317 36.8 76 16 100/63 75.6 98 03/19 2002 38.1 95 16 121/78 92.3 96 24 hour I O ending at 0700: 03/20 0700 03/19 1900 Intake Total Output Total 500 Balance -500 Output, Urine 500 PATIENT WEIGHT: Weight (lb): 149 Weight (oz): 4.05 Weight (kg): 67.585 Medications: Active Meds + DC'd Last 24 Hrs Insulin Glargine (Lantus/Semglee) 15 UNIT Q12HR SUBQ Acetaminophen (TYLENOL 325MG TABLET) 650 MG Q4H PRN PRN PO Cefazolin Sodium (Cefazolin Sodium) 2 GM Q8H IV Sodium Chloride (NORMAL SALINE 10ML VIAL) 10 ML Insulin Human Lispro (HumaLOG) 5 UNIT TID MEALS SUBQ Gabapentin (NEURONTIN 100MG CAPSULE) 100 MG TID PO Hydrocodone Bitart/Acetaminophen (NORCO 5-325 TABLET) 1 TAB Q4H PRN PRN PO Morphine Sulfate (morphine SULFATE) 2 MG Q4H PRN PRN IV Insulin Human Lispro (HumaLOG) AGGRESSIVE SLIDING SCALE (steroids, infection, resistant) AC HS 0200 SUBQ Dextrose (GLUCOSE) 16 GM ASDIR PRN PO Dextrose/Water (DEXTROSE 50% 50ML SYRINGE) 12.5 GM ASDIR PRN IV Ondansetron HCl (ZOFRAN 4 MG/2 ML) 4 MG Q4H PRN PRN IV Sodium Chloride (NORMAL SALINE 250ML IV BAG) 250 ML ASDIR PRN IV Physical Exam General appearance: alert, awake, oriented Head/Eyes: atraumatic, normocephalic ENT: moist mucosal membranes, normal dentition Neck: full range of motion, no JVD Cardiovascular: normal capillary refill, normal heart sounds, regular rate rhythm, no heave Respiratory: aerating well, clear to auscultation, symmetric expansion, no distress Abdomen: non-tender, soft, no distention Genitourinary: no flank pain, no urinary catheter Extremities: decreased range of motion, moves all Musculoskeletal: decreased ROM, no CVA tenderness Neuro/GATE SUPERVISOR: alert, oriented X 3, normal speech, no motor deficits Skin: dry, normal temperature Ulcer: Type/cause: Dressing over right foot Results Findings/Data: Laboratory Tests 03/20 03/20 03/20 03/20 03/19 1039 0514 0220 0205 2002 Chemistry Sodium (133 - 145 MMOL/L) 138 Potassium (3.6 - 5.2 MMOL/L) 3.6 Chloride (100 - 108 MMOL/L) 102 Carbon Dioxide (22 - 32 MMOL/L) 35 H BUN (6 - 20 MG/DL) 7 Creatinine (0.60 - 1.00 MG/DL) 0.57 L Estimated GFR (MDRD) (51 - 120) 109 Glucose (65 - 99 MG/DL) 144 H POC Glucose (65 - 99 MG/DL) 119 H 108 H 141 H 181 H Calcium (8.7 - 10.5 MG/DL) 8.2 L Magnesium (1.8 - 2.4 MG/DL) 2.2 Total Bilirubin (0.0 - 1.0 MG/DL) 0.2 AST (15 - 37 Units/L) 17 ALT (30 - 65 Units/L) 8 L Alkaline Phosphatase (50 - 136 Units/L) 75 Total Protein (6.4 - 8.2 G/DL) 6.9 Albumin (3.4 - 5.0 G/DL) 1.5 L Globulin (1.5 - 3.8 G/DL) 5.4 H Albumin/Globulin Ratio (1.1 - 2.2) 0.3 L 03/19 1528 Chemistry POC Glucose (65 - 99 MG/DL) 101 H Laboratory Tests 03/20 0220 Hematology WBC (4.80 - 10.80 x10 3/uL) 9.50 RBC (4.2 - 5.4 x10 6/uL) 3.15 L Hgb (12.0 - 16.0 G/DL) 8.9 L Hct (37 - 47 %) 28.0 L MCV (81 - 99 FL) 88.9 MCH (27 - 31 PG) 28.3 MCHC (33 - 37 G/DL) 31.8 L RDW Coeff of Rupert (11.5 - 14.5 %) 12.5 Plt Count (150 - 450 x10 3/uL) 326 MPV (7.4 - 10.4 FL) 8.4 Neut % (Auto) (42 - 86 %) 70.6 Lymph % (Auto) (24 - 44 %) 19.4 L [place] % (Auto) (0.0 - 4.0 %) 8.0 H Eos % (Auto) (0.0 - 2.7 %) 1.1 Baso % (Auto) (0.0 - 0.5 %) 0.1 Eos # (Auto) (0.0 - 0.5 x10 3/uL) 0.10 Baso # (Auto) (0.0 - 0.2 x10 3/uL) 0.01 Abs Immat Gran (auto) (0.00 - 0.03 x10 3/uL) 0.08 H Absolute Neuts (auto) (1.8 - 7.7 x10 3/uL) 6.71 Absolute Lymphs (auto) (1.0 - 4.8 x10 3/uL) 1.84 Absolute Monos (auto) (0.0 - 0.8 x10 3/uL) 0.76 Absolute Nucleated RBC (0.0 - 0.2 X10 3/uL) 0.0 Immature Gran % (0.0 - 2.0 %) 0.8 Nucleated RBC % (0.0 - 0.0 %) 0.0 Diagnosis, Assessment Plan Consultants: critical/draw bench operator helper Free Text DxA P Notes Free text DxA P notes: Assessment and plan Right Foot Cellulitis and Abductor Longus Abscess -Rt foot XR Mild soft tissue swelling -CT RLE 2.3 x 0.8 x 0.8 cm abscess within the proximal abductor hallucis muscle in keeping with an abscess. Edema and phlegmon is seen within the adductor hallucis muscle without abscess. No evidence of osteomyelitis. -Patient currently on Ancef -Textile Machinery Instructor consulted, Dr. Mott. Plan for I D on 03/20/2024 Sepsis (POA) 2/2 above -Resolved Diabetic ketoacidosis -Resolved Insulin-dependent type 2 diabetes mellitus poorly controlled with severe hyperglycemia (A1c 13.3) -Hemoglobin A1c 13.3 -Patient on Lantus 15 units sc q 12 hr, Humalog 5 units 3 times daily meals, and aggressive sliding scale -Continue with 1999 ADA diet Hypokalemia -Monitor potassium daily and replace as indicated HTN -Patient currently normotensive on no medication Chronic anemia -Hemoglobin trending slowly downward, will monitor CBC daily. -Check iron study, vitamin B12 and folate Moderate malnutrition -Hypoalbuminemia -Glucerna shake TID Diet: 1999 ADA with Glucerna shake TID Discussed with patient about goals of care. Explained in detail about the various categories of CODE STATUS. Answered all questions. Wishes are to proceed with FULL CODE STATUS. Advanced care planning performed for more than 16 minutes. Long conversation with patient and patient family at bedside regarding hospital course and plan. All questions answered. High complexity medical decision making Total care time spent was 68 minutes at 1400 RPT #:[id number] END OF [id number] 07:44:00 [facility] ([facility]) Infectious Dis. Progress Note REPORT#:[id number] REPORT STATUS: Signed REPORT INITIALIZATION DATE:03/20/24 TIME: 743 PATIENT: TSERING BRAUN UNIT #: [id number] ROOM/BED: [address] : 71 AGE: 54 SEX: F ATTEND: Meagan Bowen MD ADM AUTHOR: Karey Granger REPT SERVICE DT/TIME: 03/20/24 0744 * ALL edits or amendments must be made on the electronic/computer document * Subjective HPI: Reason for consultation foot abscess and cellulitis. History of present illness Patient is 54-year-old female present to the hospital complains of pain redness swelling of her right foot with evidence of possible abscess. She did not recall how it started. Patient has foot neuropathy. Temperature was 104. Patient is on currently BKA admitted to the ICU with insulin drip. CT of the right lower extremity revealed 2.3 x 0.8 4.8 cm abscess. Patient is currently on vancomycin and Zosyn. Podiatry consult is currently pending I believe. Review of systems; : patient does not report any headaches or visual disturbances. Rest of the 10 systems are normal or as above. Reviewed all the labs CBC CMP all imaging studies and it systems analyst consultant notes and primary care physician notes. Objective General VS/I O: Vital Signs Date Temp Pulse Resp B/P B/P Mean Pulse Ox FiO2 03/19-03/20 98.1-100.6 76-95 16 100-121/63-78 75.6-92.3 96-99 Last Documented: Result Date Time Pulse Ox 99 03/20 0322 B/P 120/76 03/20 0322 B/P Mean 90.5 03/20 0322 Temp 98.1 03/20 0322 Pulse 80 03/20 0322 Resp 16 03/20 0322 O2 Delivery Room air 03/19 1050 Vital Signs: Date Time Temp Pulse Resp B/P B/P Pulse O2 O2 Flow FiO2 Mean Ox Delivery Rate 03/20 0322 98.1 80 16 120/76 90.5 99 03/19 2317 98.2 76 16 100/63 75.6 98 03/19 2002 100.6 95 16 121/78 92.3 96 03/19 1113 98.3 80 16 119/77 99 03/19 1050 98.3 80 16 119/77 91 99 Room air 24 hour I O ending at 0700: 03/20 0700 03/19 1900 Intake Total Output Total 500 Balance -500 Output, Urine 500 PATIENT WEIGHT: Weight (lb): 149 Weight (oz): 4.05 Weight (kg): 67.585 Physical Exam General appearance: alert, awake, oriented Wound/incision: Location: R foot Site condition: dressing clean dry, dressing intact Cardiovascular: normal heart sounds Respiratory: aerating well, symmetric expansion, no distress Abdomen: non-tender, soft Genitourinary: no urinary catheter Extremities: moves all Neuro/GATE SUPERVISOR: alert, oriented X 3 Skin: no rash Psychiatry: normal affect, normal judgment/insight, normal mood Results Findings/Data: Laboratory Tests 03/2014 219 204 2002 152 Chemistry Sodium (133 - 145 MMOL/L) 138 Potassium (3.6 - 5.2 MMOL/L) 3.6 Chloride (100 - 108 MMOL/L) 102 Carbon Dioxide (22 - 32 MMOL/L) 35 H BUN (6 - 20 MG/DL) 7 Creatinine (0.60 - 1.00 MG/DL) 0.57 L Estimated GFR (MDRD) (51 - 120) 109 Glucose (65 - 99 MG/DL) 144 H POC Glucose (65 - 99 MG/DL) 108 H 141 H 181 H 101 H Calcium (8.7 - 10.5 MG/DL) 8.2 L Magnesium (1.8 - 2.4 MG/DL) 2.2 Total Bilirubin (0.0 - 1.0 MG/DL) 0.2 AST (15 - 37 Units/L) 17 ALT (30 - 65 Units/L) 8 L Alkaline Phosphatase (50 - 136 Units/L) 75 Total Protein (6.4 - 8.2 G/DL) 6.9 Albumin (3.4 - 5.0 G/DL) 1.5 L Globulin (1.5 - 3.8 G/DL) 5.4 H Albumin/Globulin Ratio (1.1 - 2.2) 0.3 L 03/19 03/19 1203 1041 Chemistry POC Glucose (65 - 99 MG/DL) 126 H HCG, Qual (NEGATIVE) NEGATIVE Laboratory Tests 03/20 220 Hematology WBC (4.80 - 10.80 x10 3/uL) 9.50 RBC (4.2 - 5.4 x10 6/uL) 3.15 L Hgb (12.0 - 16.0 G/DL) 8.9 L Hct (37 - 47 %) 28.0 L MCV (81 - 99 FL) 88.9 MCH (27 - 31 PG) 28.3 MCHC (33 - 37 G/DL) 31.8 L RDW Coeff of Rupert (11.5 - 14.5 %) 12.5 Plt Count (150 - 450 x10 3/uL) 326 MPV (7.4 - 10.4 FL) 8.4 Neut % (Auto) (42 - 86 %) 70.6 Lymph % (Auto) (24 - 44 %) 19.4 L [place] % (Auto) (0.0 - 4.0 %) 8.0 H Eos % (Auto) (0.0 - 2.7 %) 1.1 Baso % (Auto) (0.0 - 0.5 %) 0.1 Eos # (Auto) (0.0 - 0.5 x10 3/uL) 0.10 Baso # (Auto) (0.0 - 0.2 x10 3/uL) 0.01 Abs Immat Gran (auto) (0.00 - 0.03 x10 3/uL) 0.08 H Absolute Neuts (auto) (1.8 - 7.7 x10 3/uL) 6.71 Absolute Lymphs (auto) (1.0 - 4.8 x10 3/uL) 1.84 Absolute Monos (auto) (0.0 - 0.8 x10 3/uL) 0.76 Absolute Nucleated RBC (0.0 - 0.2 X10 3/uL) 0.0 Immature Gran % (0.0 - 2.0 %) 0.8 Nucleated RBC % (0.0 - 0.0 %) 0.0 Diagnosis, Assessment Plan Free Text A P: Assessment Patient is 54-year-old female present to the hospital complains of pain redness swelling of her right foot with evidence of possible abscess. She did not recall how it started. Patient has foot neuropathy. Temperature was 104. Patient is on currently BKA admitted to the ICU with insulin drip. CT of the right lower extremity revealed 2.3 x 0.8 4.8 cm abscess. Patient is currently on vancomycin and Zosyn. Podiatry consult is currently pending I believe. Plan At this time continue with IV vancomycin and Zosyn. Podiatry consultation for possible abscess drainage. Will follow and make further recommendations based on culture results. Thank you for the consultation. 03/14/24 transferred to [facility] floor 03/13 febrile Tmax 103.1; will continue to follow temperature curve with leukocytosis of 16k; will follow on room air; no acute distress noted reports she believes blister ruptured; dressing to R foot c,d,i - wound care notified reports pain to R foot controlled at this time blood cultures 03/12 negative so far; will follow urine cultures 03/13 Staph aureus will change antibiotic to IV Cefazolin monitor for antibiotic related adverse effects pending transfer to [facility] for podiatry evaluation will continue to follow clinically Recommendations per Dr Burks 03/17 -pending I D of abscess on 03/19 blood cultures 03/12 NGTD urine cultures 03/13 Staph aureus Cont. on IV Cefazolin monitor for antibiotic related adverse effects pending podiatry evaluation will continue to follow clinically Reviewed with Dr Burks 03/18/24 Patient remains afebrile, WBC 11 K Patient reports 1 loose bowel movement this morning, will follow blood cultures 03/12 NGTD urine cultures 03/13 Staph aureus Cont. on IV Cefazolin monitor for antibiotic related adverse effects Pending I D of abscess tomorrow; please send cultures Reviewed with Dr Burks 03/19/24 Patient remains afebrile, WBC 11 K Patient denies diarrhea blood cultures 03/12 no growth final urine cultures 03/13 Staph aureus Cont. on IV Cefazolin monitor for antibiotic related adverse effects Pending I D of abscess today please send cultures Reviewed with Dr Burks 03/20/24 Tmax 100.6. WBC 9K Will have nursing staff remove oldest IV Pending right foot I D scheduled for tomorrow Patient is currently on Ancef Reviewed with Dr. Burks Consultants: critical/draw bench operator helper at 1048 at 4605 RPT #:[id number] END OF [id number] 22:14:00 [facility] ([facility]) Critical Care Progress Note REPORT#:[id number] REPORT STATUS: Signed REPORT INITIALIZATION DATE:03/19/24 TIME: 2213 PATIENT: TSERING BRAUN UNIT #: [id number] ROOM/BED: [address] : [address] AGE: 54 SEX: F ATTEND: Meagan Bowen MD ADM AUTHOR: Chapin Bar MD REPT SERVICE DT/TIME: 03/19/242213 * ALL edits or amendments must be made on the electronic/computer document * Subjective Chief complaint: right foot pain Review of Systems ROS Psych: Denies: homicidal ideation, suicidal ideation. All systems rev neg: except as marked Objective General VS/I O Last Documented: Result Date Time Pulse Ox 96 03/19 2002 B/P 121/78 03/19 2002 B/P Mean 92.3 03/19 2002 Temp 100.6 03/19 2002 Pulse 95 03/19 2002 Resp 16 03/19 2002 O2 Delivery Room air 03/19 1050 24 hour I O ending at 0700: 03/19 0700 03/18 1900 Intake Total Output Total 500 Balance -500 Number 1 Bowel Movements Number Voids Output, Urine 500 PATIENT WEIGHT: Weight (lb): 149 Weight (oz): 4.05 Weight (kg): 67.585 Medications: Active Meds + DC'd Last 24 Hrs Insulin Glargine (Lantus/Semglee) 15 UNIT Q12HR SUBQ Acetaminophen (TYLENOL 325MG TABLET) 650 MG Q4H PRN PRN PO Cefazolin Sodium (Cefazolin Sodium) 2 GM Q8H IV Sodium Chloride (NORMAL SALINE 10ML VIAL) 10 ML Insulin Human Lispro (HumaLOG) 5 UNIT TID MEALS SUBQ Gabapentin (NEURONTIN 100MG CAPSULE) 100 MG TID PO Hydrocodone Bitart/Acetaminophen (NORCO 5-325 TABLET) 1 TAB Q4H PRN PRN PO Morphine Sulfate (morphine SULFATE) 2 MG Q4H PRN PRN IV Insulin Human Lispro (HumaLOG) AGGRESSIVE SLIDING SCALE (steroids, infection, resistant) AC HS 0200 SUBQ Dextrose (GLUCOSE) 16 GM ASDIR PRN PO Dextrose/Water (DEXTROSE 50% 50ML SYRINGE) 12.5 GM ASDIR PRN IV Ondansetron HCl (ZOFRAN 4 MG/2 ML) 4 MG Q4H PRN PRN IV Sodium Chloride (NORMAL SALINE 250ML IV BAG) 250 ML ASDIR PRN IV Results Findings/Data: Laboratory Tests 03/19/24212: [Embedded Image Not Available] Laboratory Tests 03/19 1528 1203 1041 0518 Chemistry POC Glucose (65 - 99 MG/DL) 181 H 101 H 126 H 140 H HCG, Qual (NEGATIVE) NEGATIVE 03/19 0204 Chemistry Sodium (133 - 145 MMOL/L) 136 Potassium (3.6 - 5.2 MMOL/L) 3.8 Chloride (100 - 108 MMOL/L) 101 Carbon Dioxide (22 - 32 MMOL/L) 33 H BUN (6 - 20 MG/DL) 6 Creatinine (0.60 - 1.00 MG/DL) 0.45 L Estimated GFR (MDRD) (51 - 120) 115 Glucose (65 - 99 MG/DL) 142 H POC Glucose (65 - 99 MG/DL) 128 H Calcium (8.7 - 10.5 MG/DL) 7.9 L Magnesium (1.8 - 2.4 MG/DL) 2.1 Total Bilirubin (0.0 - 1.0 MG/DL) 0.2 AST (15 - 37 Units/L) 25 ALT (30 - 65 Units/L) 8 L Alkaline Phosphatase (50 - 136 Units/L) 83 Total Protein (6.4 - 8.2 G/DL) 6.9 Albumin (3.4 - 5.0 G/DL) 1.5 L Globulin (1.5 - 3.8 G/DL) 5.4 H Albumin/Globulin Ratio (1.1 - 2.2) 0.3 L Laboratory Tests 03/19 213 Hematology WBC (4.80 - 10.80 x10 3/uL) 11.82 H RBC (4.2 - 5.4 x10 6/uL) 3.19 L Hgb (12.0 - 16.0 G/DL) 9.1 L Hct (37 - 47 %) 28.5 L MCV (81 - 99 FL) 89.3 MCH (27 - 31 PG) 28.5 MCHC (33 - 37 G/DL) 31.9 L RDW Coeff of Rupert (11.5 - 14.5 %) 12.7 Plt Count (150 - 450 x10 3/uL) 343 MPV (7.4 - 10.4 FL) 8.6 Neut % (Auto) (42 - 86 %) 71.1 Lymph % (Auto) (24 - 44 %) 18.5 L [place] % (Auto) (0.0 - 4.0 %) 8.0 H Eos % (Auto) (0.0 - 2.7 %) 0.8 Baso % (Auto) (0.0 - 0.5 %) 0.3 Eos # (Auto) (0.0 - 0.5 x10 3/uL) 0.10 Baso # (Auto) (0.0 - 0.2 x10 3/uL) 0.03 Abs Immat Gran (auto) (0.00 - 0.03 x10 3/uL) 0.15 H Absolute Neuts (auto) (1.8 - 7.7 x10 3/uL) 8.41 H Absolute Lymphs (auto) (1.0 - 4.8 x10 3/uL) 2.19 Absolute Monos (auto) (0.0 - 0.8 x10 3/uL) 0.94 H Absolute Nucleated RBC (0.0 - 0.2 X10 3/uL) 0.0 Immature Gran % (0.0 - 2.0 %) 1.3 Nucleated RBC % (0.0 - 0.0 %) 0.0 Results: labs reviewed, vital signs stable, x-ray personally reviewed, current med profile rev'd Free Text Obj Notes Free Text Obj Notes: General appearance: chronically ill appearing, alert, awake, oriented, no acute distress, pleasant, conversational, mental status normal, no respiratory distress Head/eyes: atraumatic, clear cornea, PERRLA ENT: dry mucosal membrane, poor dentition Neck: full range of motion, non-tender, no JVD, no masses or swelling Cardiovascular: normal capillary refill, normal heart sounds, regular rate and rhythm, normal S1/S2, no ectopy Respiratory: aerating well, clear to auscultation, symmetric expansion, no distress Abdomen: soft, non-tender Genitourinary: no bladder distention, no flank pain, no urinary catheter Extremities: edema (to RLE), moves all, normal capillary refill, normal range of motion, no calf tenderness, no clubbing, no cyanosis Musculoskeletal normal inspection, painless range of motion Neuro/GATE SUPERVISOR: alert, oriented X 3, normal speech, reflexes equal bilat, no motor deficits, no sensory deficits Skin: abscess (to right foot), dry, intact, normal color, normal temperature, no rash Wound/incision: Location: right foot blister Site condition: no drainage Psychiatry: normal affect, normal judgment/insight, normal mood, not homicidal, not suicidal, no hallucinations Diagnosis, Assessment Plan Free text A P: Acute renal failure Diabetic ketoacidosis Severe sepsis Right foot abscess Uncontrolled type 2 diabetes Normocytic anemia Hypokalemia Patient's mentation appears to be at baseline, no acute neuroconcerns She is saturating well on room air Hemodynamically stable, will continue to monitor closely Vasopressors as needed to maintain MAP greater than 65 Monitor renal function closely Strict I's and O's Avoid nephrotoxic medications Transitioned to basal bolus regimen Continue with antibiotics as per ID ID is following Tolerating a diet DVT prophylaxis GI prophylaxis CODE STATUS to full code Medical decision making: High complexity Continue assessment prior at 2215 RPT #:[id number] END OF [id number] 12:12:00 [facility] ([facility]) Podiatry Consult Note REPORT#:[id number] REPORT STATUS: Signed REPORT INITIALIZATION DATE:03/19/24 TIME: 1211 PATIENT: TSERING BRAUN UNIT #: [id number] [address]BED: [address] : [address] AGE: 54 SEX: F ATTEND: Garrett Rhodes DO ADM AUTHOR: Juve Mott DPJanak REPT SERVICE DT/TIME: 03/19/24 1212 * ALL edits or amendments must be made on the electronic/computer document * History of Present Illness HPI: Patient is a 54yo female with PMHx of diabetes, hypertension, and hyperlipidemia who arrived to [facility] ED with complaints of right foot pain/redness /swelling x 3 days. She endorsed associated fever, chills, nausea, and vomiting. Her TMax was reported to be 104.0F. On the medial aspect of her right foot, there is a swollen/erythematous area that is painful to touch. She does not know if she was bit or hit something. She denies any knowledge of how it occured. The pain has gotten progressively worse over the past three days and she came in after she was unable to bear any weight on that foot. Initial labwork reveals WBC 17.42, Na 131, Cl 92, CO2 19, BUN 24, Cr 1.22, Glucose 424, Lactic Acid 1.5, and Troponin < 4. She was found to have large amounts of acetone in the blood. Her UA reveals a UTI as well as glucose > 1000 and ketones >150. Her anion gap was calculated to be 20. VBG reveals pH 7.310, HCO3 16.7, and BE -8.6. Right foot x-ray reveals mild soft tissue swelling. CT of right lower extremity reveals 2.3 x 0.8 x 0.8 cm abscess within the proximal abductor hallucis muscle in keeping with an abscess and no evidence of osteomyelitis. While in ED, patient received NS bolus x 2L, Zosyn 3.375gm IV x 1, Morphine 4mg IV x 1, Zofran 4mg IV x 1, and was placed on an insulin gtt per protocol. History - Adult longitudinal Past medical history: Reports: Diabetes mellitus, Hypertension, Dyslipidemia, Ischemic stroke. Past surgical history: Reports: . Family history: Reports: Diabetes, Heart disease. Alcohol use: Denies EtOH use Drug use: Denies recreational drugs Smoking status for patients 13 years old or older: Former Smoker Date last smoked: 03/18/13 Allergies: Coded Allergies: No Known Allergies (05/28/13) Ambulatory status: Independent Review of Systems Constitutional: chills, fatigue, fever. Denies: generalized weakness, lethargy, malaise. Skin: diaphoresis, swelling. Denies: abrasion, bruising, contusion, ecchymosis. Respiratory: Denies: [place] (dyspnea on exertion), hemoptysis, non productive cough, parox nocturnal dyspnea, pleurisy. Cardiovascular: edema. Denies: chest pain, [place] (dyspnea on exertion), orthopnea, palpitations. GI: Denies: abdominal pain, anorexia, constipation, diarrhea. Musculoskeletal: extremity pain, extremity swelling. Denies: arthritis, joint pain, joint swelling. Neuro: numbness. Denies: bladder dysfunction, bowel dysfunction, change in LOC, confusion. Objective General VS: Last Documented: Result Date Time Pulse Ox 99 03/19 1113 B/P 119/77 03/19 1113 Temp 98.3 03/19 1113 Pulse 80 03/19 1113 Resp 16 03/19 1113 B/P Mean 91 03/19 1050 O2 Delivery Room air 03/19 1050 PATIENT WEIGHT: Weight (lb): 149 Weight (oz): 4.05 Weight (kg): 67.585 Medications: Active Meds + DC'd Last 24 Hrs Insulin Glargine (Lantus/Semglee) 15 UNIT Q12HR SUBQ Acetaminophen (TYLENOL 325MG TABLET) 650 MG Q4H PRN PRN PO Cefazolin Sodium (Cefazolin Sodium) 2 GM Q8H IV Sodium Chloride (NORMAL SALINE 10ML VIAL) 10 ML Insulin Human Lispro (HumaLOG) 5 UNIT TID MEALS SUBQ Gabapentin (NEURONTIN 100MG CAPSULE) 100 MG TID PO Hydrocodone Bitart/Acetaminophen (NORCO 5-325 TABLET) 1 TAB Q4H PRN PRN PO Morphine Sulfate (morphine SULFATE) 2 MG Q4H PRN PRN IV Insulin Human Lispro (HumaLOG) AGGRESSIVE SLIDING SCALE (steroids, infection, resistant) AC HS 0200 SUBQ Dextrose (GLUCOSE) 16 GM ASDIR PRN PO Dextrose/Water (DEXTROSE 50% 50ML SYRINGE) 12.5 GM ASDIR PRN IV Ondansetron HCl (ZOFRAN 4 MG/2 ML) 4 MG Q4H PRN PRN IV Sodium Chloride (NORMAL SALINE 250ML IV BAG) 250 ML ASDIR PRN IV I O: 24 hour I O ending at 0700: 03/19 0700 03/18 1900 Intake Total Output Total 500 Balance -500 Number 1 Bowel Movements Number Voids Output, Urine 500 Dietitian nutrition assessment The data set between the solid lines has been imported from the dietitian's assessment. BMI Calculated: 22.7 Nutrition related diagnosis: Nutrition diagnosis details: Nutrition problem: Nutrition etiology: Nutrition signs and symptoms: Nutrition prescription: Dietitian name: Assessment completed: Physical Exam Skin: D: erythema and ecchymosis right medial hindfoot with induration. TTP medial hindfoot. V: DP 2/4 b/l, and PT puls absent RLE. 1+ edema b/l LE. CFT < 3 seconds N: Diminished protective and light touch sensation. DTR intact b/l LE. O : No gross abnormalities noted. Results Findings/Data: Laboratory Tests: 03/19 03/19 03/19 03/19 1041 0518 0213 0204 Chemistry Sodium (133 - 145 MMOL/L) 136 Potassium (3.6 - 5.2 MMOL/L) 3.8 Chloride (100 - 108 MMOL/L) 101 Carbon Dioxide (22 - 32 MMOL/L) 33 H BUN (6 - 20 MG/DL) 6 Creatinine (0.60 - 1.00 MG/DL) 0.45 L Estimated GFR (MDRD) (51 - 120) 115 Glucose (65 - 99 MG/DL) 142 H POC Glucose (65 - 99 MG/DL) 126 H 140 H 128 H Calcium (8.7 - 10.5 MG/DL) 7.9 L Magnesium (1.8 - 2.4 MG/DL) 2.1 Total Bilirubin (0.0 - 1.0 MG/DL) 0.2 AST (15 - 37 Units/L) 25 ALT (30 - 65 Units/L) 8 L Alkaline Phosphatase (50 - 136 Units/L) 83 Total Protein (6.4 - 8.2 G/DL) 6.9 Albumin (3.4 - 5.0 G/DL) 1.5 L Globulin (1.5 - 3.8 G/DL) 5.4 H Albumin/Globulin Ratio (1.1 - 2.2) 0.3 L Hematology WBC (4.80 - 10.80 x10 3/uL) 11.82 H RBC (4.2 - 5.4 x10 6/uL) 3.19 L Hgb (12.0 - 16.0 G/DL) 9.1 L Hct (37 - 47 %) 28.5 L MCV (81 - 99 FL) 89.3 MCH (27 - 31 PG) 28.5 MCHC (33 - 37 G/DL) 31.9 L RDW Coeff of Rupert (11.5 - 14.5 %) 12.7 Plt Count (150 - 450 x10 3/uL) 343 MPV (7.4 - 10.4 FL) 8.6 Neut % (Auto) (42 - 86 %) 71.1 Lymph % (Auto) (24 - 44 %) 18.5 L [place] % (Auto) (0.0 - 4.0 %) 8.0 H Eos % (Auto) (0.0 - 2.7 %) 0.8 Baso % (Auto) (0.0 - 0.5 %) 0.3 Eos # (Auto) (0.0 - 0.5 x10 3/uL) 0.10 Baso # (Auto) (0.0 - 0.2 x10 3/uL) 0.03 Abs Immat Gran (auto) (0.00 - 0.03 x10 3/uL) 0.15 H Absolute Neuts (auto) (1.8 - 7.7 x10 3/uL) 8.41 H Absolute Lymphs (auto) (1.0 - 4.8 x10 3/uL) 2.19 Absolute Monos (auto) (0.0 - 0.8 x10 3/uL) 0.94 H Absolute Nucleated RBC (0.0 - 0.2 X10 3/uL) 0.0 Immature Gran % (0.0 - 2.0 %) 1.3 Nucleated RBC % (0.0 - 0.0 %) 0.0 03/18 1556 Chemistry POC Glucose (65 - 99 MG/DL) 162 H 157 H Diagnosis, Assessment Plan Problem List/A P: 1. Facial abscess 2. Abscess 3. Cellulitis 4. DKA (diabetic ketoacidosis) Free Text A P: Assessment 1) Right foot abscess 2) DKA Plan - Right foot I D today - F/U OR cultures for 4 weeks abx - NWB RLE except toe touch transfers in sx shoe - PT wound care - 10/05" iodoform packing, saline WTD, ABD, RICHARD daily; post operatively - PT crutch/walker training - Stable for d/c from labeling specialist perspective pending final OR cultures Thank you for the consult Consultants: critical/draw bench operator helper at 1230 RPT #:[id number] END OF [id number] 08:27:00 [facility] ([facility]) Infectious Dis. Progress Note REPORT#:[id number] REPORT STATUS: Signed REPORT INITIALIZATION DATE:03/19/24 TIME: 826 PATIENT: TSERING BRAUN UNIT #: [id number] ROOM/BED: [facility] : 71 AGE: 54 SEX: F ATTEND: Meagan Bowen MD ADM AUTHOR: Karey Granger REPT SERVICE DT/TIME: 03/19/24826 * ALL edits or amendments must be made on the electronic/computer document * Subjective HPI: Reason for consultation foot abscess and cellulitis. History of present illness Patient is 54-year-old female present to the hospital complains of pain redness swelling of her right foot with evidence of possible abscess. She did not recall how it started. Patient has foot neuropathy. Temperature was 104. Patient is on currently BKA admitted to the ICU with insulin drip. CT of the right lower extremity revealed 2.3 x 0.8 4.8 cm abscess. Patient is currently on vancomycin and Zosyn. Podiatry consult is currently pending I believe. Review of systems; : patient does not report any headaches or visual disturbances. Rest of the 10 systems are normal or as above. Reviewed all the labs CBC CMP all imaging studies and it systems analyst consultant notes and primary care physician notes. Objective General VS/I O: Vital Signs Date Temp Pulse Resp B/P B/P Mean Pulse Ox FiO2 03/18-03/19 98.2-99.1 86-96 12-16 86-118/55-78 65.3-91.8 95-99 Last Documented: Result Date Time Pulse Ox 95 03/19 0311 B/P 117/77 03/19 311 B/P Mean 90.8 03/19 311 Temp 98.8 03/19 311 Pulse 88 03/19 311 Resp 16 03/19 311 O2 Delivery Room air 03/18 0334 Vital Signs: Date Time Temp Pulse Resp B/P B/P Pulse O2 O2 Flow FiO2 Mean Ox Delivery Rate 03/19 311 98.8 88 16 117/77 90.8 95 03/18 2354 99.0 86 16 118/78 91.8 97 03/18 2140 91 110/69 82.9 03/18 2137 96 86/55 65.3 95 03/18 1830 98.2 94 12 94/62 72.3 97 03/18 1515 99.0 94 12 99/66 76.7 98 03/18 1109 99.1 89 16 105/68 80.6 99 24 hour I O ending at 0700: 03/19 0700 03/18 1900 Intake Total Output Total 500 Balance -500 Number 1 Bowel Movements Number Voids Output, Urine 500 PATIENT WEIGHT: Weight (lb): 149 Weight (oz): 4.05 Weight (kg): 67.585 Physical Exam General appearance: alert, awake, oriented Wound/incision: Location: R foot Site condition: dressing clean dry, dressing intact Cardiovascular: normal heart sounds Respiratory: aerating well, symmetric expansion, no distress Abdomen: non-tender, soft Genitourinary: no urinary catheter Extremities: moves all Neuro/GATE SUPERVISOR: alert, oriented X 3 Skin: no rash Psychiatry: normal affect, normal judgment/insight, normal mood Results Findings/Data: Laboratory Tests 03/19 03/19 03/19 03/18 03/18 0518 0213 0204 5 1556 Chemistry Sodium (133 - 145 MMOL/L) 136 Potassium (3.6 - 5.2 MMOL/L) 3.8 Chloride (100 - 108 MMOL/L) 101 Carbon Dioxide (22 - 32 MMOL/L) 33 H BUN (6 - 20 MG/DL) 6 Creatinine (0.60 - 1.00 MG/DL) 0.45 L Estimated GFR (MDRD) (51 - 120) 115 Glucose (65 - 99 MG/DL) 142 H POC Glucose (65 - 99 MG/DL) 140 H 128 H 162 H 157 H Calcium (8.7 - 10.5 MG/DL) 7.9 L Magnesium (1.8 - 2.4 MG/DL) 2.1 Total Bilirubin (0.0 - 1.0 MG/DL) 0.2 AST (15 - 37 Units/L) 25 ALT (30 - 65 Units/L) 8 L Alkaline Phosphatase (50 - 136 83 Units/L) Total Protein (6.4 - 8.2 G/DL) 6.9 Albumin (3.4 - 5.0 G/DL) 1.5 L Globulin (1.5 - 3.8 G/DL) 5.4 H Albumin/Globulin Ratio (1.1 - 2.2) 0.3 L 03/18 1121 Chemistry POC Glucose (65 - 99 MG/DL) 203 H Laboratory Tests 03/19 0213 Hematology WBC (4.80 - 10.80 x10 3/uL) 11.82 H RBC (4.2 - 5.4 x10 6/uL) 3.19 L Hgb (12.0 - 16.0 G/DL) 9.1 L Hct (37 - 47 %) 28.5 L MCV (81 - 99 FL) 89.3 MCH (27 - 31 PG) 28.5 MCHC (33 - 37 G/DL) 31.9 L RDW Coeff of Rupert (11.5 - 14.5 %) 12.7 Plt Count (150 - 450 x10 3/uL) 343 MPV (7.4 - 10.4 FL) 8.6 Neut % (Auto) (42 - 86 %) 71.1 Lymph % (Auto) (24 - 44 %) 18.5 L [place] % (Auto) (0.0 - 4.0 %) 8.0 H Eos % (Auto) (0.0 - 2.7 %) 0.8 Baso % (Auto) (0.0 - 0.5 %) 0.3 Eos # (Auto) (0.0 - 0.5 x10 3/uL) 0.10 Baso # (Auto) (0.0 - 0.2 x10 3/uL) 0.03 Abs Immat Gran (auto) (0.00 - 0.03 x10 3/uL) 0.15 H Absolute Neuts (auto) (1.8 - 7.7 x10 3/uL) 8.41 H Absolute Lymphs (auto) (1.0 - 4.8 x10 3/uL) 2.19 Absolute Monos (auto) (0.0 - 0.8 x10 3/uL) 0.94 H Absolute Nucleated RBC (0.0 - 0.2 X10 3/uL) 0.0 Immature Gran % (0.0 - 2.0 %) 1.3 Nucleated RBC % (0.0 - 0.0 %) 0.0 Diagnosis, Assessment Plan Free Text A P: Assessment Patient is 54-year-old female present to the hospital complains of pain redness swelling of her right foot with evidence of possible abscess. She did not recall how it started. Patient has foot neuropathy. Temperature was 104. Patient is on currently BKA admitted to the ICU with insulin drip. CT of the right lower extremity revealed 2.3 x 0.8 4.8 cm abscess. Patient is currently on vancomycin and Zosyn. Podiatry consult is currently pending I believe. Plan At this time continue with IV vancomycin and Zosyn. Podiatry consultation for possible abscess drainage. Will follow and make further recommendations based on culture results. Thank you for the consultation. 03/14/24 transferred to [facility] floor 03/13 febrile Tmax 103.1; will continue to follow temperature curve with leukocytosis of 16k; will follow on room air; no acute distress noted reports she believes blister ruptured; dressing to R foot c,d,i - wound care notified reports pain to R foot controlled at this time blood cultures 03/12 negative so far; will follow urine cultures 03/13 Staph aureus will change antibiotic to IV Cefazolin monitor for antibiotic related adverse effects pending transfer to [facility] for podiatry evaluation will continue to follow clinically Recommendations per Dr Burks 03/17 -pending I D of abscess on 03/19 blood cultures 03/12 NGTD urine cultures 03/13 Staph aureus Cont. on IV Cefazolin monitor for antibiotic related adverse effects pending podiatry evaluation will continue to follow clinically Reviewed with Dr Burks 03/18/24 Patient remains afebrile, WBC 11 K Patient reports 1 loose bowel movement this morning, will follow blood cultures 03/12 NGTD urine cultures 03/13 Staph aureus Cont. on IV Cefazolin monitor for antibiotic related adverse effects Pending I D of abscess tomorrow; please send cultures Reviewed with Dr Burks 03/19/24 Patient remains afebrile, WBC 11 K Patient denies diarrhea blood cultures 03/12 no growth final urine cultures 03/13 Staph aureus Cont. on IV Cefazolin monitor for antibiotic related adverse effects Pending I D of abscess today please send cultures Reviewed with Dr Burks Consultants: critical/draw bench operator helper at 1038 at 2151 RPT #:[id number] END OF [id number] 07:29:00 [facility] ([facility]) Hospitalist Progress Note REPORT#:[id number] REPORT STATUS: Signed REPORT INITIALIZATION DATE:03/19/24 TIME: 728 PATIENT: TSERING BRAUN UNIT #: [id number] ROOM/BED: [place] [address] : 71 AGE: 54 SEX: F ATTEND: Garrett Rhodes DO ADM AUTHOR: Garrett Rhodes DO REPT SERVICE DT/TIME: 03/19/24 07 * ALL edits or amendments must be made on the electronic/computer document * Subjective Chief complaint: Right foot pain HPI: 03/14/24 Patient seen today at bedside. No acute overnight events. Patient reports continued right foot pain. Denies fever, chills, chest pain, abdominal pain or dysuria. Review of Systems Free Text ROS Notes Free Text ROS Notes: Negative except for pertinent positives noted in HPI. Objective General VS/I O: Vital Signs: Date Time Temp Pulse Resp B/P B/P Pulse O2 O2 Flow FiO2 Mean Ox Delivery Rate 03/19 0311 98.8 88 16 117/77 90.8 95 03/18 2354 99.0 86 16 118/78 91.8 97 03/18 2140 91 110/69 82.9 03/18 2137 96 86/55 65.3 95 03/18 1830 98.2 94 12 94/62 72.3 97 03/18 1515 99.0 94 12 99/66 76.7 98 03/18 1109 99.1 89 16 105/68 80.6 99 03/18 0741 98.8 91 12 114/74 87.5 95 24 hour I O ending at 0700: 03/18 1900 03/19 0700 Intake Total Output Total 500 Balance -500 Number 1 Bowel Movements Number Voids Output, Urine 500 PATIENT WEIGHT: Weight (lb): 149 Weight (oz): 4.05 Weight (kg): 67.585 Medications: Active Meds + DC'd Last 24 Hrs Potassium Chloride (K-DUR) 40 MEQ ONCE ONE PO (DC) Insulin Glargine (Lantus/Semglee) 15 UNIT Q12HR SUBQ Acetaminophen (TYLENOL 325MG TABLET) 650 MG Q4H PRN PRN PO Cefazolin Sodium (Cefazolin Sodium) 2 GM Q8H IV Sodium Chloride (NORMAL SALINE 10ML VIAL) 10 ML Insulin Human Lispro (HumaLOG) 5 UNIT TID MEALS SUBQ Gabapentin (NEURONTIN 100MG CAPSULE) 100 MG TID PO Hydrocodone Bitart/Acetaminophen (NORCO 5-325 TABLET) 1 TAB Q4H PRN PRN PO Morphine Sulfate (morphine SULFATE) 2 MG Q4H PRN PRN IV Insulin Human Lispro (HumaLOG) AGGRESSIVE SLIDING SCALE (steroids, infection, resistant) AC HS 0200 SUBQ Dextrose (GLUCOSE) 16 GM ASDIR PRN PO Dextrose/Water (DEXTROSE 50% 50ML SYRINGE) 12.5 GM ASDIR PRN IV Ondansetron HCl (ZOFRAN 4 MG/2 ML) 4 MG Q4H PRN PRN IV Sodium Chloride (NORMAL SALINE 250ML IV BAG) 250 ML ASDIR PRN IV Physical Exam General appearance: alert, awake Head/Eyes: atraumatic, normocephalic ENT: moist mucosal membranes, normal dentition Neck: full range of motion, no JVD Cardiovascular: regular rate rhythm, no heave Respiratory: symmetric expansion, no distress Abdomen: non-tender, soft Genitourinary: no flank pain, no urinary catheter Extremities: decreased range of motion, moves all Musculoskeletal: decreased ROM, no CVA tenderness Neuro/GATE SUPERVISOR: alert, oriented X 3, no motor deficits Skin: dry, normal temperature Results Findings/Data: Laboratory Tests 03/18 03/18 03/18 03/19 03/19 1121 1556 2055 0204 0213 Chemistry Sodium (133 - 145 MMOL/L) 136 Potassium (3.6 - 5.2 MMOL/L) 3.8 Chloride (100 - 108 MMOL/L) 101 Carbon Dioxide (22 - 32 MMOL/L) 33 H BUN (6 - 20 MG/DL) 6 Creatinine (0.60 - 1.00 MG/DL) 0.45 L Estimated GFR (MDRD) (51 - 120) 115 Glucose (65 - 99 MG/DL) 142 H POC Glucose (65 - 99 MG/DL) 203 H 157 H 162 H 128 H Calcium (8.7 - 10.5 MG/DL) 7.9 L Magnesium (1.8 - 2.4 MG/DL) 2.1 Total Bilirubin (0.0 - 1.0 MG/DL) 0.2 AST (15 - 37 Units/L) 25 ALT (30 - 65 Units/L) 8 L Alkaline Phosphatase (50 - 136 Units/L) 83 Total Protein (6.4 - 8.2 G/DL) 6.9 Albumin (3.4 - 5.0 G/DL) 1.5 L Globulin (1.5 - 3.8 G/DL) 5.4 H Albumin/Globulin Ratio (1.1 - 2.2) 0.3 L 03/19 0518 Chemistry POC Glucose (65 - 99 MG/DL) 140 H Laboratory Tests 03/193 Hematology WBC (4.80 - 10.80 x10 3/uL) 11.82 H RBC (4.2 - 5.4 x10 6/uL) 3.19 L Hgb (12.0 - 16.0 G/DL) 9.1 L Hct (37 - 47 %) 28.5 L MCV (81 - 99 FL) 89.3 MCH (27 - 31 PG) 28.5 MCHC (33 - 37 G/DL) 31.9 L RDW Coeff of Rupert (11.5 - 14.5 %) 12.7 Plt Count (150 - 450 x10 3/uL) 343 MPV (7.4 - 10.4 FL) 8.6 Neut % (Auto) (42 - 86 %) 71.1 Lymph % (Auto) (24 - 44 %) 18.5 L [place] % (Auto) (0.0 - 4.0 %) 8.0 H Eos % (Auto) (0.0 - 2.7 %) 0.8 Baso % (Auto) (0.0 - 0.5 %) 0.3 Eos # (Auto) (0.0 - 0.5 x10 3/uL) 0.10 Baso # (Auto) (0.0 - 0.2 x10 3/uL) 0.03 Abs Immat Gran (auto) (0.00 - 0.03 x10 3/uL) 0.15 H Absolute Neuts (auto) (1.8 - 7.7 x10 3/uL) 8.41 H Absolute Lymphs (auto) (1.0 - 4.8 x10 3/uL) 2.19 Absolute Monos (auto) (0.0 - 0.8 x10 3/uL) 0.94 H Absolute Nucleated RBC (0.0 - 0.2 X10 3/uL) 0.0 Immature Gran % (0.0 - 2.0 %) 1.3 Nucleated RBC % (0.0 - 0.0 %) 0.0 Diagnosis, Assessment Plan Consultants: critical/draw bench operator helper Free Text DxA P Notes Free text DxA P notes: Right Foot Cellulitis and Abductor Longus Abscess -Patient currently on Ancef Plans are for I D on 03/19/2024 Sepsis (POA) 2/2 above Resolved Diabetic ketoacidosis -Resolved Insulin-dependent type 2 diabetes mellitus poorly controlled with severe hyperglycemia (A1c 13.3) -Hemoglobin A1c 13.3 Patient on Lantus, Humalog 5 units 3 times daily meals, and sliding scale Continue with 1500 ADA diet Hypokalemia Monitor potassium daily and replace as indicated HTN Patient currently normotensive on no medication HLD Chronic anemia Hemoglobin trending slowly downward, will monitor CBC daily. Diet: Diabetic Discussed with patient about goals of care. Explained in detail about the various categories of CODE STATUS. Answered all questions. Wishes are to proceed with FULL CODE STATUS. Advanced care planning performed for more than 16 minutes. Long conversation with patient and patient family at bedside regarding hospital course and plan. All questions answered. High complexity medical decision making Total care time spent was 68 minutes 03/17: Replace K with 40 mEq PO x 1. ANticipate I D of foot soon. Continue with ABx as above. 03/18: Replace potassium with 40 mg p.o. x 1. Plans are for I D tomorrow. Continue with Ancef as above. Patient with albumin of 1.5, will start her on Glucerna shakes 3 times daily. 03/19: Patient to have I D of right foot today. Continue with Ancef as above. at 0909 RPT #:[id number] END OF [id number] 15:55:00 [facility] ([facility]) Critical Care Progress Note REPORT#:[id number] REPORT STATUS: Signed REPORT INITIALIZATION DATE:03/18/24 TIME: 155 PATIENT: TSERING BRAUN UNIT #: [id number] ROOM/BED: [place] [address] : 71 AGE: 54 SEX: F ATTEND: Garrett Rhodes DO ADM AUTHOR: Chapin Bar MD REPT SERVICE DT/TIME: 03/18/24 1555 * ALL edits or amendments must be made on the electronic/computer document * Subjective Chief complaint: right foot pain Review of Systems ROS Psych: Denies: homicidal ideation, suicidal ideation. All systems rev neg: except as marked Objective General VS/I O Last Documented: Result Date Time Pulse Ox 98 03/18 1515 B/P 99/66 03/18 1515 B/P Mean 76.7 03/18 1515 Temp 99.0 03/18 1515 Pulse 94 03/18 1515 Resp 12 03/18 1515 O2 Delivery Room air 03/18 0334 24 hour I O ending at 0700: 03/18 0700 03/17 1900 Intake Total Output Total 200 500 Balance -200 -500 Number 2 Bowel Movements Output, Urine 200 500 PATIENT WEIGHT: Weight (lb): 149 Weight (oz): 4.05 Weight (kg): 67.585 Medications: Active Meds + DC'd Last 24 Hrs Potassium Chloride (K-DUR) 40 MEQ ONCE ONE PO (DC) Insulin Glargine (Lantus/Semglee) 15 UNIT Q12HR SUBQ Acetaminophen (TYLENOL 325MG TABLET) 650 MG Q4H PRN PRN PO Cefazolin Sodium (Cefazolin Sodium) 2 GM Q8H IV Sodium Chloride (NORMAL SALINE 10ML VIAL) 10 ML Insulin Human Lispro (HumaLOG) 5 UNIT TID MEALS SUBQ Gabapentin (NEURONTIN 100MG CAPSULE) 100 MG TID PO Hydrocodone Bitart/Acetaminophen (NORCO 5-325 TABLET) 1 TAB Q4H PRN PRN PO Morphine Sulfate (morphine SULFATE) 2 MG Q4H PRN PRN IV Insulin Human Lispro (HumaLOG) AGGRESSIVE SLIDING SCALE (steroids, infection, resistant) AC HS 0200 SUBQ Dextrose (GLUCOSE) 16 GM ASDIR PRN PO Dextrose/Water (DEXTROSE 50% 50ML SYRINGE) 12.5 GM ASDIR PRN IV Ondansetron HCl (ZOFRAN 4 MG/2 ML) 4 MG Q4H PRN PRN IV Sodium Chloride (NORMAL SALINE 250ML IV BAG) 250 ML ASDIR PRN IV Results Findings/Data: Laboratory Tests 03/18/24 0237: [Embedded Image Not Available] Laboratory Tests 03/18 03/18 03/18 03/18 03/17 1121 0515 0237 0135 2203 Chemistry Sodium (133 - 145 MMOL/L) 139 Potassium (3.6 - 5.2 MMOL/L) 3.5 L Chloride (100 - 108 MMOL/L) 101 Carbon Dioxide (22 - 32 MMOL/L) 35 H BUN (6 - 20 MG/DL) 6 Creatinine (0.60 - 1.00 MG/DL) 0.54 L Estimated GFR (MDRD) (51 - 120) 110 Glucose (65 - 99 MG/DL) 127 H POC Glucose (65 - 99 MG/DL) 203 H 125 H 133 H 153 H Calcium (8.7 - 10.5 MG/DL) 7.7 L Magnesium (1.8 - 2.4 MG/DL) 2.0 Total Bilirubin (0.0 - 1.0 MG/DL) 0.3 AST (15 - 37 Units/L) 20 ALT (30 - 65 Units/L) 9 L Alkaline Phosphatase (50 - 136 Units/L) 76 Total Protein (6.4 - 8.2 G/DL) 6.9 Albumin (3.4 - 5.0 G/DL) 1.5 L Globulin (1.5 - 3.8 G/DL) 5.4 H Albumin/Globulin Ratio (1.1 - 2.2) 0.3 L 03/170 Chemistry POC Glucose (65 - 99 MG/DL) 160 H Laboratory Tests 03/18 0237 Hematology WBC (4.80 - 10.80 x10 3/uL) 11.72 H RBC (4.2 - 5.4 x10 6/uL) 3.18 L Hgb (12.0 - 16.0 G/DL) 9.1 L Hct (37 - 47 %) 28.2 L MCV (81 - 99 FL) 88.7 MCH (27 - 31 PG) 28.6 MCHC (33 - 37 G/DL) 32.3 L RDW Coeff of Rupert (11.5 - 14.5 %) 12.6 Plt Count (150 - 450 x10 3/uL) 341 MPV (7.4 - 10.4 FL) 8.6 Neut % (Auto) (42 - 86 %) 70.5 Lymph % (Auto) (24 - 44 %) 18.7 L [place] % (Auto) (0.0 - 4.0 %) 8.4 H Eos % (Auto) (0.0 - 2.7 %) 0.7 Baso % (Auto) (0.0 - 0.5 %) 0.3 Eos # (Auto) (0.0 - 0.5 x10 3/uL) 0.08 Baso # (Auto) (0.0 - 0.2 x10 3/uL) 0.03 Abs Immat Gran (auto) (0.00 - 0.03 x10 3/uL) 0.16 H Absolute Neuts (auto) (1.8 - 7.7 x10 3/uL) 8.27 H Absolute Lymphs (auto) (1.0 - 4.8 x10 3/uL) 2.19 Absolute Monos (auto) (0.0 - 0.8 x10 3/uL) 0.99 H Absolute Nucleated RBC (0.0 - 0.2 X10 3/uL) 0.0 Immature Gran % (0.0 - 2.0 %) 1.4 Nucleated RBC % (0.0 - 0.0 %) 0.0 Results: labs reviewed, vital signs stable, x-ray personally reviewed, current med profile rev'd Free Text Obj Notes Free Text Obj Notes: General appearance: chronically ill appearing, alert, awake, oriented, no acute distress, pleasant, conversational, mental status normal, no respiratory distress Head/eyes: atraumatic, clear cornea, PERRLA ENT: dry mucosal membrane, poor dentition Neck: full range of motion, non-tender, no JVD, no masses or swelling Cardiovascular: normal capillary refill, normal heart sounds, regular rate and rhythm, normal S1/S2, no ectopy Respiratory: aerating well, clear to auscultation, symmetric expansion, no distress Abdomen: soft, non-tender Genitourinary: no bladder distention, no flank pain, no urinary catheter Extremities: edema (to RLE), moves all, normal capillary refill, normal range of motion, no calf tenderness, no clubbing, no cyanosis Musculoskeletal normal inspection, painless range of motion Neuro/GATE SUPERVISOR: alert, oriented X 3, normal speech, reflexes equal bilat, no motor deficits, no sensory deficits Skin: abscess (to right foot), dry, intact, normal color, normal temperature, no rash Wound/incision: Location: right foot blister Site condition: no drainage Psychiatry: normal affect, normal judgment/insight, normal mood, not homicidal, not suicidal, no hallucinations Diagnosis, Assessment Plan Free text A P: Acute renal failure Diabetic ketoacidosis Severe sepsis Right foot abscess Uncontrolled type 2 diabetes Normocytic anemia Hypokalemia Patient's mentation appears to be at baseline, no acute neuroconcerns She is saturating well on room air Hemodynamically stable, will continue to monitor closely Vasopressors as needed to maintain MAP greater than 65 Monitor renal function closely Strict I's and O's Avoid nephrotoxic medications Transitioned to basal bolus regimen Continue with antibiotics as per ID ID is following Tolerating a diet DVT prophylaxis GI prophylaxis CODE STATUS to full code Medical decision making: High complexity Continue assessment prior at 1556 [facility] #:[id number] END OF [id number] 08:28:00 [facility] ([facility]) Hospitalist Progress Note REPORT#:[id number] REPORT STATUS: Signed REPORT INITIALIZATION DATE:03/18/24 TIME: 827 PATIENT: TSERING BRAUN UNIT #: [id number] RO[address]BED: [address] : [birth year] AGE: 54 SEX: F ATTEND: Garrett Rhodes DO ADM AUTHOR: Garrett Rhodes DO REPT SERVICE DT/TIME: 03/18/24 0828 * ALL edits or amendments must be made on the electronic/computer document * Subjective Chief complaint: Right foot pain HPI: 03/14/24 Patient seen today at bedside. No acute overnight events. Patient reports continued right foot pain. Denies fever, chills, chest pain, abdominal pain or dysuria. Review of Systems Free Text ROS Notes Free Text ROS Notes: Negative except for pertinent positives noted in HPI. Objective General VS/I O: Vital Signs: Date Time Temp Pulse Resp B/P B/P Pulse O2 O2 Flow FiO2 Mean Ox Delivery Rate 03/18 0741 98.8 91 12 114/74 87.5 95 03/18 0334 99.9 91 17 111/68 82.5 95 Room air 03/18 0009 98.2 90 17 100/65 76.2 94 Room air 03/17 2043 98.4 92 17 104/67 79.4 96 Room air 03/17 1613 99.1 100 15 107/69 81.4 94 03/17 1157 99.9 101 15 100/64 75.6 96 24 hour I O ending at 0700: 03/17 1900 03/18 0700 Intake Total Output Total 500 200 Balance -500 -200 Number 2 Bowel Movements Output, Urine 500 200 PATIENT WEIGHT: Weight (lb): 149 Weight (oz): 4.05 Weight (kg): 67.585 Medications: Active Meds + DC'd Last 24 Hrs Potassium Chloride (K-DUR) 40 MEQ ONCE ONE PO (UNV) Insulin Glargine (Lantus/Semglee) 15 UNIT Q12HR SUBQ Acetaminophen (TYLENOL 325MG TABLET) 650 MG Q4H PRN PRN PO Cefazolin Sodium (Cefazolin Sodium) 2 GM Q8H IV Sodium Chloride (NORMAL SALINE 10ML VIAL) 10 ML Insulin Human Lispro (HumaLOG) 5 UNIT TID MEALS SUBQ Gabapentin (NEURONTIN 100MG CAPSULE) 100 MG TID PO Hydrocodone Bitart/Acetaminophen (NORCO 5-325 TABLET) 1 TAB Q4H PRN PRN PO Morphine Sulfate (morphine SULFATE) 2 MG Q4H PRN PRN IV Insulin Human Lispro (HumaLOG) AGGRESSIVE SLIDING SCALE (steroids, infection, resistant) AC HS 0200 SUBQ Dextrose (GLUCOSE) 16 GM ASDIR PRN PO Dextrose/Water (DEXTROSE 50% 50ML SYRINGE) 12.5 GM ASDIR PRN IV Ondansetron HCl (ZOFRAN 4 MG/2 ML) 4 MG Q4H PRN PRN IV Sodium Chloride (NORMAL SALINE 250ML IV BAG) 250 ML ASDIR PRN IV Physical Exam General appearance: alert, awake, oriented Head/Eyes: atraumatic, normocephalic ENT: moist mucosal membranes, normal dentition Neck: full range of motion, no JVD Cardiovascular: regular rate rhythm, no heave Respiratory: symmetric expansion, no distress Abdomen: non-tender, soft Genitourinary: no flank pain, no urinary catheter Extremities: decreased range of motion, moves all Musculoskeletal: decreased ROM, no CVA tenderness Neuro/GATE SUPERVISOR: alert, oriented X 3, no motor deficits Skin: dry, normal temperature Results Findings/Data: Laboratory Tests 03/17 03/17 03/17 03/17 03/18 1051 1544 2110 2203 0135 Chemistry POC Glucose (65 - 99 MG/DL) 194 H 202 H 160 H 153 H 133 H 03/18 03/18 0237 0515 Chemistry Sodium (133 - 145 MMOL/L) 139 Potassium (3.6 - 5.2 MMOL/L) 3.5 L Chloride (100 - 108 MMOL/L) 101 Carbon Dioxide (22 - 32 MMOL/L) 35 H BUN (6 - 20 MG/DL) 6 Creatinine (0.60 - 1.00 MG/DL) 0.54 L Estimated GFR (MDRD) (51 - 120) 110 Glucose (65 - 99 MG/DL) 127 H POC Glucose (65 - 99 MG/DL) 125 H Calcium (8.7 - 10.5 MG/DL) 7.7 L Magnesium (1.8 - 2.4 MG/DL) 2.0 Total Bilirubin (0.0 - 1.0 MG/DL) 0.3 AST (15 - 37 Units/L) 20 ALT (30 - 65 Units/L) 9 L Alkaline Phosphatase (50 - 136 Units/L) 76 Total Protein (6.4 - 8.2 G/DL) 6.9 Albumin (3.4 - 5.0 G/DL) 1.5 L Globulin (1.5 - 3.8 G/DL) 5.4 H Albumin/Globulin Ratio (1.1 - 2.2) 0.3 L Laboratory Tests 03/18 0237 Hematology WBC (4.80 - 10.80 x10 3/uL) 11.72 H RBC (4.2 - 5.4 x10 6/uL) 3.18 L Hgb (12.0 - 16.0 G/DL) 9.1 L Hct (37 - 47 %) 28.2 L MCV (81 - 99 FL) 88.7 MCH (27 - 31 PG) 28.6 MCHC (33 - 37 G/DL) 32.3 L RDW Coeff of Rupert (11.5 - 14.5 %) 12.6 Plt Count (150 - 450 x10 3/uL) 341 MPV (7.4 - 10.4 FL) 8.6 Neut % (Auto) (42 - 86 %) 70.5 Lymph % (Auto) (24 - 44 %) 18.7 L [place] % (Auto) (0.0 - 4.0 %) 8.4 H Eos % (Auto) (0.0 - 2.7 %) 0.7 Baso % (Auto) (0.0 - 0.5 %) 0.3 Eos # (Auto) (0.0 - 0.5 x10 3/uL) 0.08 Baso # (Auto) (0.0 - 0.2 x10 3/uL) 0.03 Abs Immat Gran (auto) (0.00 - 0.03 x10 3/uL) 0.16 H Absolute Neuts (auto) (1.8 - 7.7 x10 3/uL) 8.27 H Absolute Lymphs (auto) (1.0 - 4.8 x10 3/uL) 2.19 Absolute Monos (auto) (0.0 - 0.8 x10 3/uL) 0.99 H Absolute Nucleated RBC (0.0 - 0.2 X10 3/uL) 0.0 Immature Gran % (0.0 - 2.0 %) 1.4 Nucleated RBC % (0.0 - 0.0 %) 0.0 Diagnosis, Assessment Plan Consultants: critical/draw bench operator helper Free Text DxA P Notes Free text DxA P notes: Right Foot Cellulitis and Abductor Longus Abscess -Patient currently on Ancef Plans are for I D on 03/19/2024 Sepsis (POA) 2/2 above Resolved Diabetic ketoacidosis -Resolved Insulin-dependent type 2 diabetes mellitus poorly controlled with severe hyperglycemia (A1c 13.3) -Hemoglobin A1c 13.3 Patient on Lantus, Humalog 5 units 3 times daily meals, and sliding scale Continue with 1500 ADA diet Hypokalemia Monitor potassium daily and replace as indicated HTN Patient currently normotensive on no medication HLD Chronic anemia Hemoglobin trending slowly downward, will monitor CBC daily. Diet: Diabetic Discussed with patient about goals of care. Explained in detail about the various categories of CODE STATUS. Answered all questions. Wishes are to proceed with FULL CODE STATUS. Advanced care planning performed for more than 16 minutes. Long conversation with patient and patient family at bedside regarding hospital course and plan. All questions answered. High complexity medical decision making Total care time spent was 68 minutes 03/17: Replace K with 40 mEq PO x 1. ANticipate I D of foot soon. Continue with ABx as above. 03/18: Replace potassium with 40 mg p.o. x 1. Plans are for I D tomorrow. Continue with Ancef as above. Patient with albumin of 1.5, will start her on Glucerna shakes 3 times daily. at 1058 RPT #:[id number] END OF [id number] 08:21:00 [facility] ([facility]) Infectious Dis. Progress Note REPORT#:[id number] REPORT STATUS: Signed REPORT INITIALIZATION DATE:03/18/24 TIME: 820 PATIENT: TSERING BRAUN UNIT #: [id number] ROOM/BED: [address] : 71 AGE: 54 SEX: F ATTEND: Garrett Rhodes DO ADM AUTHOR: Karey Granger REPT SERVICE DT/TIME: 03/18/24 0821 * ALL edits or amendments must be made on the electronic/computer document * Subjective HPI: Reason for consultation foot abscess and cellulitis. History of present illness Patient is 54-year-old female present to the hospital complains of pain redness swelling of her right foot with evidence of possible abscess. She did not recall how it started. Patient has foot neuropathy. Temperature was 104. Patient is on currently BKA admitted to the ICU with insulin drip. CT of the right lower extremity revealed 2.3 x 0.8 4.8 cm abscess. Patient is currently on vancomycin and Zosyn. Podiatry consult is currently pending I believe. Review of systems; : patient does not report any headaches or visual disturbances. Rest of the 10 systems are normal or as above. Reviewed all the labs CBC CMP all imaging studies and it systems analyst consultant notes and primary care physician notes. Objective General VS/I O: Vital Signs Date Temp Pulse Resp B/P B/P Mean Pulse Ox FiO2 03/17-03/18 98.2-99.9 90-101 12-17 100-114/64-74 75.6-87.5 94-96 Last Documented: Result Date Time Pulse Ox 95 03/18 0741 B/P 114/74 03/18 0741 B/P Mean 87.5 03/18 0741 Temp 98.8 03/18 0741 Pulse 91 03/18 0741 Resp 12 03/18 0741 O2 Delivery Room air 03/18 0334 Vital Signs: Date Time Temp Pulse Resp B/P B/P Pulse O2 O2 Flow FiO2 Mean Ox Delivery Rate 03/18 0741 98.8 91 12 114/74 87.5 95 / 0334 99.9 91 17 111/68 82.5 95 Room air 03/18 0009 98.2 90 17 100/65 76.2 94 Room air 03/17 2043 98.4 92 17 104/67 79.4 96 Room air 03/17 1613 99.1 100 15 107/69 81.4 94 / 1157 99.9 101 15 100/64 75.6 96 24 hour I O ending at 0700: 03/18 0700 03/17 1900 Intake Total Output Total 200 500 Balance -200 -500 Number 2 Bowel Movements Output, Urine 200 500 PATIENT WEIGHT: Weight (lb): 149 Weight (oz): 4.05 Weight (kg): 67.585 Physical Exam General appearance: alert, awake, oriented Wound/incision: Location: R foot Site condition: dressing clean dry, dressing intact Cardiovascular: normal heart sounds Respiratory: aerating well, symmetric expansion, no distress Abdomen: non-tender, soft Genitourinary: no urinary catheter Extremities: moves all Neuro/GATE SUPERVISOR: alert, oriented X 3 Skin: no rash Psychiatry: normal affect, normal judgment/insight, normal mood Results Findings/Data: Laboratory Tests 03/18 03/18 03/18 03/17 03/17 0515 0237 0135 2203 2110 Chemistry Sodium (133 - 145 MMOL/L) 139 Potassium (3.6 - 5.2 MMOL/L) 3.5 L Chloride (100 - 108 MMOL/L) 101 Carbon Dioxide (22 - 32 MMOL/L) 35 H BUN (6 - 20 MG/DL) 6 Creatinine (0.60 - 1.00 MG/DL) 0.54 L Estimated GFR (MDRD) (51 - 120) 110 Glucose (65 - 99 MG/DL) 127 H POC Glucose (65 - 99 MG/DL) 125 H 133 H 153 H 160 H Calcium (8.7 - 10.5 MG/DL) 7.7 L Magnesium (1.8 - 2.4 MG/DL) 2.0 Total Bilirubin (0.0 - 1.0 MG/DL) 0.3 AST (15 - 37 Units/L) 20 ALT (30 - 65 Units/L) 9 L Alkaline Phosphatase (50 - 136 76 Units/L) Total Protein (6.4 - 8.2 G/DL) 6.9 Albumin (3.4 - 5.0 G/DL) 1.5 L Globulin (1.5 - 3.8 G/DL) 5.4 H Albumin/Globulin Ratio (1.1 - 2.2) 0.3 L 03/17 03/17 1544 1051 Chemistry POC Glucose (65 - 99 MG/DL) 202 H 194 H Laboratory Tests 03/18 0237 Hematology WBC (4.80 - 10.80 x10 3/uL) 11.72 H RBC (4.2 - 5.4 x10 6/uL) 3.18 L Hgb (12.0 - 16.0 G/DL) 9.1 L Hct (37 - 47 %) 28.2 L MCV (81 - 99 FL) 88.7 MCH (27 - 31 PG) 28.6 MCHC (33 - 37 G/DL) 32.3 L RDW Coeff of Rupert (11.5 - 14.5 %) 12.6 Plt Count (150 - 450 x10 3/uL) 341 MPV (7.4 - 10.4 FL) 8.6 Neut % (Auto) (42 - 86 %) 70.5 Lymph % (Auto) (24 - 44 %) 18.7 L [place] % (Auto) (0.0 - 4.0 %) 8.4 H Eos % (Auto) (0.0 - 2.7 %) 0.7 Baso % (Auto) (0.0 - 0.5 %) 0.3 Eos # (Auto) (0.0 - 0.5 x10 3/uL) 0.08 Baso # (Auto) (0.0 - 0.2 x10 3/uL) 0.03 Abs Immat Gran (auto) (0.00 - 0.03 x10 3/uL) 0.16 H Absolute Neuts (auto) (1.8 - 7.7 x10 3/uL) 8.27 H Absolute Lymphs (auto) (1.0 - 4.8 x10 3/uL) 2.19 Absolute Monos (auto) (0.0 - 0.8 x10 3/uL) 0.99 H Absolute Nucleated RBC (0.0 - 0.2 X10 3/uL) 0.0 Immature Gran % (0.0 - 2.0 %) 1.4 Nucleated RBC % (0.0 - 0.0 %) 0.0 Diagnosis, Assessment Plan Free Text A P: Assessment Patient is 54-year-old female present to the hospital complains of pain redness swelling of her right foot with evidence of possible abscess. She did not recall how it started. Patient has foot neuropathy. Temperature was 104. Patient is on currently BKA admitted to the ICU with insulin drip. CT of the right lower extremity revealed 2.3 x 0.8 4.8 cm abscess. Patient is currently on vancomycin and Zosyn. Podiatry consult is currently pending I believe. Plan At this time continue with IV vancomycin and Zosyn. Podiatry consultation for possible abscess drainage. Will follow and make further recommendations based on culture results. Thank you for the consultation. 03/14/24 transferred to [facility] floor 03/13 febrile Tmax 103.1; will continue to follow temperature curve with leukocytosis of 16k; will follow on room air; no acute distress noted reports she believes blister ruptured; dressing to R foot c,d,i - wound care notified reports pain to R foot controlled at this time blood cultures 03/12 negative so far; will follow urine cultures 03/13 Staph aureus will change antibiotic to IV Cefazolin monitor for antibiotic related adverse effects pending transfer to [facility] for podiatry evaluation will continue to follow clinically Recommendations per Dr Burks 03/17 -pending I D of abscess on 03/19 blood cultures 03/12 NGTD urine cultures 03/13 Staph aureus Cont. on IV Cefazolin monitor for antibiotic related adverse effects pending podiatry evaluation will continue to follow clinically Reviewed with Dr Burks 03/18/24 Patient remains afebrile, WBC 11 K Patient reports 1 loose bowel movement this morning, will follow blood cultures 03/12 NGTD urine cultures 03/13 Staph aureus Cont. on IV Cefazolin monitor for antibiotic related adverse effects Pending I D of abscess tomorrow; please send cultures Reviewed with Dr Burks Consultants: critical/draw bench operator helper at 1412 at 2240 RPT #:[id number] END OF [id number] 20:57:00 [facility] ([facility]) Critical Care Progress Note REPORT#:[id number] REPORT STATUS: Signed REPORT INITIALIZATION DATE:03/17/24 TIME: 2056 PATIENT: TSERING BRAUN UNIT #: [id number] [address]: [address] : 72 AGE: 54 SEX: F ATTEND: Garrett Rhodes DO ADM AUTHOR: Chapin Bar MD REPT SERVICE DT/TIME: 03/17/242056 * ALL edits or amendments must be made on the electronic/computer document * Subjective Chief complaint: right foot pain Review of Systems ROS All systems rev neg: except as marked Objective General VS/I O Last Documented: Result Date Time Pulse Ox 96 03/17 2043 B/P 104/67 03/17 2043 B/P Mean 79.4 03/17 2043 O2 Delivery Room air 03/17 2043 Temp 98.4 03/17 2043 Pulse 92 03/17 2043 Resp 17 03/17 2043 24 hour I O ending at 0700: 03/17 0700 03/16 1900 Intake Total 800 Output Total 550 500 Balance -550 300 Intake, Oral 800 Number 1 Bowel Movements Number 1 Incontinent Voids Output, Urine 550 500 PATIENT WEIGHT: Weight (lb): 149 Weight (oz): 4.05 Weight (kg): 67.585 Medications: Active Meds + DC'd Last 24 Hrs Potassium Chloride (K-DUR) 40 MEQ ONCE ONE PO (DC) Insulin Glargine (Lantus/Semglee) 15 UNIT Q12HR SUBQ Acetaminophen (TYLENOL 325MG TABLET) 650 MG Q4H PRN PRN PO Cefazolin Sodium (Cefazolin Sodium) 2 GM Q8H IV Sodium Chloride (NORMAL SALINE 10ML VIAL) 10 ML Insulin Human Lispro (HumaLOG) 5 UNIT TID MEALS SUBQ Gabapentin (NEURONTIN 100MG CAPSULE) 100 MG TID PO Hydrocodone Bitart/Acetaminophen (NORCO 5-325 TABLET) 1 TAB Q4H PRN PRN PO Morphine Sulfate (morphine SULFATE) 2 MG Q4H PRN PRN IV Insulin Human Lispro (HumaLOG) AGGRESSIVE SLIDING SCALE (steroids, infection, resistant) AC HS 0200 SUBQ Dextrose (GLUCOSE) 16 GM ASDIR PRN PO Dextrose/Water (DEXTROSE 50% 50ML SYRINGE) 12.5 GM ASDIR PRN IV Mupirocin (BACTROBAN 2% OINTMENT 22 GMS) 1 APPL BID NASAL (DC) Ondansetron HCl (ZOFRAN 4 MG/2 ML) 4 MG Q4H PRN PRN IV Sodium Chloride (NORMAL SALINE 250ML IV BAG) 250 ML ASDIR PRN IV Results Findings/Data: Laboratory Tests 03/17/24 0149: [Embedded Image Not Available] Laboratory Tests 03/17 03/17 03/17 03/17 03/17 1544 1051 0622 0149 0048 Chemistry Sodium (133 - 145 MMOL/L) 138 Potassium (3.6 - 5.2 MMOL/L) 3.4 L Chloride (100 - 108 MMOL/L) 99 L Carbon Dioxide (22 - 32 MMOL/L) 34 H BUN (6 - 20 MG/DL) 6 Creatinine (0.60 - 1.00 MG/DL) 0.59 L Estimated GFR (MDRD) (51 - 120) 108 Glucose (65 - 99 MG/DL) 164 H POC Glucose (65 - 99 MG/DL) 202 H 194 H 153 H 160 H Calcium (8.7 - 10.5 MG/DL) 7.9 L Total Bilirubin (0.0 - 1.0 MG/DL) 0.2 AST (15 - 37 Units/L) 16 ALT (30 - 65 Units/L) 10 L Alkaline Phosphatase (50 - 136 85 Units/L) Total Protein (6.4 - 8.2 G/DL) 7.2 Albumin (3.4 - 5.0 G/DL) 1.5 L Globulin (1.5 - 3.8 G/DL) 5.7 H Albumin/Globulin Ratio (1.1 - 2.2) 0.3 L 03/168 Chemistry POC Glucose (65 - 99 MG/DL) 145 H Laboratory Tests 03/17 0149 Hematology WBC (4.80 - 10.80 x10 3/uL) 12.88 H RBC (4.2 - 5.4 x10 6/uL) 3.38 L Hgb (12.0 - 16.0 G/DL) 9.7 L Hct (37 - 47 %) 29.9 L MCV (81 - 99 FL) 88.5 MCH (27 - 31 PG) 28.7 MCHC (33 - 37 G/DL) 32.4 L RDW Coeff of Rupert (11.5 - 14.5 %) 12.7 Plt Count (150 - 450 x10 3/uL) 359 MPV (7.4 - 10.4 FL) 9.0 Neut % (Auto) (42 - 86 %) 73.9 Lymph % (Auto) (24 - 44 %) 17.5 L [place] % (Auto) (0.0 - 4.0 %) 7.2 H Eos % (Auto) (0.0 - 2.7 %) 0.2 Baso % (Auto) (0.0 - 0.5 %) 0.2 Eos # (Auto) (0.0 - 0.5 x10 3/uL) 0.03 Baso # (Auto) (0.0 - 0.2 x10 3/uL) 0.03 Abs Immat Gran (auto) (0.00 - 0.03 x10 3/uL) 0.13 H Absolute Neuts (auto) (1.8 - 7.7 x10 3/uL) 9.50 H Absolute Lymphs (auto) (1.0 - 4.8 x10 3/uL) 2.26 Absolute Monos (auto) (0.0 - 0.8 x10 3/uL) 0.93 H Absolute Nucleated RBC (0.0 - 0.2 X10 3/uL) 0.0 Immature Gran % (0.0 - 2.0 %) 1.0 Nucleated RBC % (0.0 - 0.0 %) 0.0 Results: labs reviewed, vital signs stable, x-ray personally reviewed, current med profile rev'd Free Text Obj Notes Free Text Obj Notes: General appearance: chronically ill appearing, alert, awake, oriented, no acute distress, pleasant, conversational, mental status normal, no respiratory distress Head/eyes: atraumatic, clear cornea, PERRLA ENT: dry mucosal membrane, poor dentition Neck: full range of motion, non-tender, no JVD, no masses or swelling Cardiovascular: normal capillary refill, normal heart sounds, regular rate and rhythm, normal S1/S2, no ectopy Respiratory: aerating well, clear to auscultation, symmetric expansion, no distress Abdomen: soft, non-tender Genitourinary: no bladder distention, no flank pain, no urinary catheter Extremities: edema (to RLE), moves all, normal capillary refill, normal range of motion, no calf tenderness, no clubbing, no cyanosis Musculoskeletal normal inspection, painless range of motion Neuro/GATE SUPERVISOR: alert, oriented X 3, normal speech, reflexes equal bilat, no motor deficits, no sensory deficits Skin: abscess (to right foot), dry, intact, normal color, normal temperature, no rash Wound/incision: Location: right foot blister Site condition: no drainage Psychiatry: normal affect, normal judgment/insight, normal mood, not homicidal, not suicidal, no hallucinations Diagnosis, Assessment Plan Free text A P: Acute renal failure Diabetic ketoacidosis Severe sepsis Right foot abscess Uncontrolled type 2 diabetes Normocytic anemia Hypokalemia Patient's mentation appears to be at baseline, no acute neuroconcerns She is saturating well on room air Hemodynamically stable, will continue to monitor closely Vasopressors as needed to maintain MAP greater than 65 Monitor renal function closely Strict I's and O's Avoid nephrotoxic medications Transitioned to basal bolus regimen Continue with antibiotics as per ID ID is following Tolerating a diet DVT prophylaxis GI prophylaxis CODE STATUS to full code Medical decision making: High complexity Continue assessment prior at 2058 RPT #:[id number] END OF [id number] 13:19:00 [facility] ([facility]) Hospitalist Progress Note REPORT#:[id number] REPORT STATUS: Signed REPORT INITIALIZATION DATE:03/17/24 TIME: 1318 PATIENT: TSERING BRAUN UNIT #: [id number] ROOM/BED: D331-1 : 71 AGE: 54 SEX: F ATTEND: Garrett Rhodes DO ADM AUTHOR: Garrett Rhodes DO REPT SERVICE DT/TIME: 03/17/24 1319 * ALL edits or amendments must be made on the electronic/computer document * Subjective Chief complaint: Right foot pain HPI: 03/14/24 Patient seen today at bedside. No acute overnight events. Patient reports continued right foot pain. Denies fever, chills, chest pain, abdominal pain or dysuria. Review of Systems Free Text ROS Notes Free Text ROS Notes: Negative except for pertinent positives noted in HPI. Objective General VS/I O: Vital Signs: Date Time Temp Pulse Resp B/P B/P Pulse O2 O2 Flow FiO2 Mean Ox Delivery Rate 03/17 1157 99.9 101 15 100/64 75.6 96 03/17 0806 98.6 94 14 100/65 76.8 96 03/17 0430 98.4 90 16 98/62 74.2 93 03/16 2337 99.5 91 18 108/69 81.8 94 Room air 03/16 2001 99.3 101 17 103/66 78.1 97 Room air 03/16 1618 99.3 102 16 109/70 83.0 95 24 hour I O ending at 0700: 03/16 1900 03/17 0700 Intake Total 800 Output Total 500 550 Balance 300 -550 Intake, Oral 800 Number 1 Bowel Movements Number 1 Incontinent Voids Output, Urine 500 550 PATIENT WEIGHT: Weight (lb): 149 Weight (oz): 4.05 Weight (kg): 67.585 Medications: Active Meds + DC'd Last 24 Hrs Potassium Chloride (K-DUR) 40 MEQ ONCE ONE PO (DC) Insulin Glargine (Lantus/Semglee) 15 UNIT Q12HR SUBQ Acetaminophen (TYLENOL 325MG TABLET) 650 MG Q4H PRN PRN PO Cefazolin Sodium (Cefazolin Sodium) 2 GM Q8H IV Sodium Chloride (NORMAL SALINE 10ML VIAL) 10 ML Insulin Human Lispro (HumaLOG) 5 UNIT TID MEALS SUBQ Gabapentin (NEURONTIN 100MG CAPSULE) 100 MG TID PO Hydrocodone Bitart/Acetaminophen (NORCO 5-325 TABLET) 1 TAB Q4H PRN PRN PO Morphine Sulfate (morphine SULFATE) 2 MG Q4H PRN PRN IV Insulin Human Lispro (HumaLOG) AGGRESSIVE SLIDING SCALE (steroids, infection, resistant) AC HS 0200 SUBQ Dextrose (GLUCOSE) 16 GM ASDIR PRN PO Dextrose/Water (DEXTROSE 50% 50ML SYRINGE) 12.5 GM ASDIR PRN IV Mupirocin (BACTROBAN 2% OINTMENT 22 GMS) 1 APPL BID NASAL (DC) Ondansetron HCl (ZOFRAN 4 MG/2 ML) 4 MG Q4H PRN PRN IV Sodium Chloride (NORMAL SALINE 250ML IV BAG) 250 ML ASDIR PRN IV Physical Exam Head/Eyes: atraumatic, normocephalic ENT: normal ear left, normal ear right Neck: full range of motion, no JVD Cardiovascular: regular rate rhythm, no heave Respiratory: symmetric expansion, no distress Abdomen: non-tender, soft Genitourinary: no flank pain, no urinary catheter Extremities: decreased range of motion, moves all Musculoskeletal: decreased ROM, no CVA tenderness Neuro/GATE SUPERVISOR: alert, oriented X 3, no motor deficits Skin: dry, normal temperature Psychiatry: anxious, not homicidal, not suicidal Results Findings/Data: Laboratory Tests 03/16 03/16 03/17 03/17 03/17 1607 2128 0048 0149 0622 Chemistry Sodium (133 - 145 MMOL/L) 138 Potassium (3.6 - 5.2 MMOL/L) 3.4 L Chloride (100 - 108 MMOL/L) 99 L Carbon Dioxide (22 - 32 MMOL/L) 34 H BUN (6 - 20 MG/DL) 6 Creatinine (0.60 - 1.00 MG/DL) 0.59 L Estimated GFR (MDRD) (51 - 120) 108 Glucose (65 - 99 MG/DL) 164 H POC Glucose (65 - 99 MG/DL) 151 H 145 H 160 H 153 H Calcium (8.7 - 10.5 MG/DL) 7.9 L Total Bilirubin (0.0 - 1.0 MG/DL) 0.2 AST (15 - 37 Units/L) 16 ALT (30 - 65 Units/L) 10 L Alkaline Phosphatase (50 - 136 Units/L) 85 Total Protein (6.4 - 8.2 G/DL) 7.2 Albumin (3.4 - 5.0 G/DL) 1.5 L Globulin (1.5 - 3.8 G/DL) 5.7 H Albumin/Globulin Ratio (1.1 - 2.2) 0.3 L 03/17 1051 Chemistry POC Glucose (65 - 99 MG/DL) 194 H Laboratory Tests 03/17 0149 Hematology WBC (4.80 - 10.80 x10 3/uL) 12.88 H RBC (4.2 - 5.4 x10 6/uL) 3.38 L Hgb (12.0 - 16.0 G/DL) 9.7 L Hct (37 - 47 %) 29.9 L MCV (81 - 99 FL) 88.5 MCH (27 - 31 PG) 28.7 MCHC (33 - 37 G/DL) 32.4 L RDW Coeff of Rupert (11.5 - 14.5 %) 12.7 Plt Count (150 - 450 x10 3/uL) 359 MPV (7.4 - 10.4 FL) 9.0 Neut % (Auto) (42 - 86 %) 73.9 Lymph % (Auto) (24 - 44 %) 17.5 L [place] % (Auto) (0.0 - 4.0 %) 7.2 H Eos % (Auto) (0.0 - 2.7 %) 0.2 Baso % (Auto) (0.0 - 0.5 %) 0.2 Eos # (Auto) (0.0 - 0.5 x10 3/uL) 0.03 Baso # (Auto) (0.0 - 0.2 x10 3/uL) 0.03 Abs Immat Gran (auto) (0.00 - 0.03 x10 3/uL) 0.13 H Absolute Neuts (auto) (1.8 - 7.7 x10 3/uL) 9.50 H Absolute Lymphs (auto) (1.0 - 4.8 x10 3/uL) 2.26 Absolute Monos (auto) (0.0 - 0.8 x10 3/uL) 0.93 H Absolute Nucleated RBC (0.0 - 0.2 X10 3/uL) 0.0 Immature Gran % (0.0 - 2.0 %) 1.0 Nucleated RBC % (0.0 - 0.0 %) 0.0 Diagnosis, Assessment Plan Consultants: critical/draw bench operator helper Free Text DxA P Notes Free text DxA P notes: Assessment: Right Foot Cellulitis and Abductor Longus Abscess Sepsis (POA) 2/2 above Diabetic ketoacidosis, now resolved Insulin-dependent type 2 diabetes mellitus poorly controlled with severe hyperglycemia (A1c 13.3) Hypokalemia HTN HLD Chronic anemia Plan: Podiatry consulted, appreciate recommendations; patient tentatively scheduled for Monday Infectious disease consulted, appreciate recommendations; continue with cefazolin for now IR consulted for abscess drainage; patient will need surgical debridement by podiatry Continue to monitor blood cultures; negative so far c/w agressive SSI, Lantus 15 unit Q12 Pain control Continue to monitor hemoglobin Monitor electrolytes, replete as indicated PT eval treat Wound care eval and treat Diet: Diabetic Discussed with patient about goals of care. Explained in detail about the various categories of CODE STATUS. Answered all questions. Wishes are to proceed with FULL CODE STATUS. Advanced care planning performed for more than 16 minutes. Long conversation with patient and patient family at bedside regarding hospital course and plan. All questions answered. High complexity medical decision making Total care time spent was 68 minutes 03/17: Replace K with 40 mEq PO x 1. ANticipate I D of foot soon. Continue with ABx as above. at 1322 RPT #:[id number] END OF [id number] 06:49:00 [facility] ([facility]) Infectious Dis. Progress Note REPORT#:[id number] REPORT STATUS: Signed REPORT INITIALIZATION DATE:03/17/24 TIME: 648 PATIENT: TSERING BRAUN UNIT #: [id number] ROOM/BED: [facility] : 71 AGE: 54 SEX: F ATTEND: Garrett Rhodes DO ADM AUTHOR: Danica Granger APRN DNP TRIM MACHINE OPERATOR REPT SERVICE DT/TIME: 03/17/24 0649 * ALL edits or amendments must be made on the electronic/computer document * Subjective HPI: Reason for consultation foot abscess and cellulitis. History of present illness Patient is 54-year-old female present to the hospital complains of pain redness swelling of her right foot with evidence of possible abscess. She did not recall how it started. Patient has foot neuropathy. Temperature was 104. Patient is on currently BKA admitted to the ICU with insulin drip. CT of the right lower extremity revealed 2.3 x 0.8 4.8 cm abscess. Patient is currently on vancomycin and Zosyn. Podiatry consult is currently pending I believe. Review of systems; : patient does not report any headaches or visual disturbances. Rest of the 10 systems are normal or as above. Reviewed all the labs CBC CMP all imaging studies and it systems analyst consultant notes and primary care physician notes. Objective General VS/I O: Vital Signs Date Temp Pulse Resp B/P B/P Mean Pulse Ox FiO2 03/16-03/17 98.4-99.5 90-102 16-18 98-131/62-79 74.2-96.1 93-98 Last Documented: Result Date Time Pulse Ox 93 03/17 0430 B/P 98/62 03/17 0430 B/P Mean 74.2 03/17 0430 Temp 98.4 03/17 0430 Pulse 90 03/17 0430 Resp 16 03/170 O2 Delivery Room air 03/16 2337 Vital Signs: Date Time Temp Pulse Resp B/P B/P Pulse O2 O2 Flow FiO2 Mean Ox Delivery Rate 03/17 0430 98.4 90 16 98/62 74.2 93 03/16 2337 99.5 91 18 108/69 81.8 94 Room air 03/16 2001 99.3 101 17 103/66 78.1 97 Room air 03/16 1618 99.3 102 16 109/70 83.0 95 03/16 1043 99.0 97 16 99/64 75.4 96 03/16 0725 99.0 97 16 131/79 96.1 98 24 hour I O ending at 0700: 03/17 0700 03/16 1900 Intake Total 800 Output Total 550 500 Balance -550 300 Intake, Oral 800 Number 1 Bowel Movements Number 1 Incontinent Voids Output, Urine 550 500 PATIENT WEIGHT: Weight (lb): 149 Weight (oz): 4.05 Weight (kg): 67.585 Physical Exam Wound/incision: Location: R foot Site condition: dressing clean dry, dressing intact Cardiovascular: normal heart sounds Respiratory: aerating well, symmetric expansion, no distress Abdomen: non-tender, soft Genitourinary: no urinary catheter Extremities: moves all Neuro/GATE SUPERVISOR: alert, oriented X 3 Skin: no rash Psychiatry: normal affect, normal judgment/insight, normal mood Results Findings/Data: Laboratory Tests 03/17 03/17 03/17 03/16 03/16 0622 0149 0048 2128 1607 Chemistry Sodium (133 - 145 MMOL/L) 138 Potassium (3.6 - 5.2 MMOL/L) 3.4 L Chloride (100 - 108 MMOL/L) 99 L Carbon Dioxide (22 - 32 MMOL/L) 34 H BUN (6 - 20 MG/DL) 6 Creatinine (0.60 - 1.00 MG/DL) 0.59 L Estimated GFR (MDRD) (51 - 120) 108 Glucose (65 - 99 MG/DL) 164 H POC Glucose (65 - 99 MG/DL) 153 H 160 H 145 H 151 H Calcium (8.7 - 10.5 MG/DL) 7.9 L Total Bilirubin (0.0 - 1.0 MG/DL) 0.2 AST (15 - 37 Units/L) 16 ALT (30 - 65 Units/L) 10 L Alkaline Phosphatase (50 - 136 85 Units/L) Total Protein (6.4 - 8.2 G/DL) 7.2 Albumin (3.4 - 5.0 G/DL) 1.5 L Globulin (1.5 - 3.8 G/DL) 5.7 H Albumin/Globulin Ratio (1.1 - 2.2) 0.3 L 03/16 1041 Chemistry POC Glucose (65 - 99 MG/DL) 228 H Laboratory Tests 03/17 0149 Hematology WBC (4.80 - 10.80 x10 3/uL) 12.88 H RBC (4.2 - 5.4 x10 6/uL) 3.38 L Hgb (12.0 - 16.0 G/DL) 9.7 L Hct (37 - 47 %) 29.9 L MCV (81 - 99 FL) 88.5 MCH (27 - 31 PG) 28.7 MCHC (33 - 37 G/DL) 32.4 L RDW Coeff of Rupert (11.5 - 14.5 %) 12.7 Plt Count (150 - 450 x10 3/uL) 359 MPV (7.4 - 10.4 FL) 9.0 Neut % (Auto) (42 - 86 %) 73.9 Lymph % (Auto) (24 - 44 %) 17.5 L [place] % (Auto) (0.0 - 4.0 %) 7.2 H Eos % (Auto) (0.0 - 2.7 %) 0.2 Baso % (Auto) (0.0 - 0.5 %) 0.2 Eos # (Auto) (0.0 - 0.5 x10 3/uL) 0.03 Baso # (Auto) (0.0 - 0.2 x10 3/uL) 0.03 Abs Immat Gran (auto) (0.00 - 0.03 x10 3/uL) 0.13 H Absolute Neuts (auto) (1.8 - 7.7 x10 3/uL) 9.50 H Absolute Lymphs (auto) (1.0 - 4.8 x10 3/uL) 2.26 Absolute Monos (auto) (0.0 - 0.8 x10 3/uL) 0.93 H Absolute Nucleated RBC (0.0 - 0.2 X10 3/uL) 0.0 Immature Gran % (0.0 - 2.0 %) 1.0 Nucleated RBC % (0.0 - 0.0 %) 0.0 Diagnosis, Assessment Plan Free Text A P: Assessment Patient is 54-year-old female present to the hospital complains of pain redness swelling of her right foot with evidence of possible abscess. She did not recall how it started. Patient has foot neuropathy. Temperature was 104. Patient is on currently BKA admitted to the ICU with insulin drip. CT of the right lower extremity revealed 2.3 x 0.8 4.8 cm abscess. Patient is currently on vancomycin and Zosyn. Podiatry consult is currently pending I believe. Plan At this time continue with IV vancomycin and Zosyn. Podiatry consultation for possible abscess drainage. Will follow and make further recommendations based on culture results. Thank you for the consultation. 03/14/24 transferred to [facility] floor 03/13 febrile Tmax 103.1; will continue to follow temperature curve with leukocytosis of 16k; will follow on room air; no acute distress noted reports she believes blister ruptured; dressing to R foot c,d,i - wound care notified reports pain to R foot controlled at this time blood cultures 03/12 negative so far; will follow urine cultures 03/13 Staph aureus will change antibiotic to IV Cefazolin monitor for antibiotic related adverse effects pending transfer to [facility] for podiatry evaluation will continue to follow clinically Recommendations per Dr Burks 03/17 -pending I D of abscess on 03/19 blood cultures 03/12 NGTD urine cultures 03/13 Staph aureus Cont. on IV Cefazolin monitor for antibiotic related adverse effects pending podiatry evaluation will continue to follow clinically Reviewed with Dr Burks at 0650 at 7775 RPT #:[id number] END OF [id number] 16:26:00 [facility] ([facility]) Critical Care Progress Note REPORT#:[id number] REPORT STATUS: Signed REPORT INITIALIZATION DATE:03/16/24 TIME: 1625 PATIENT: TSERING BRAUN UNIT #: [id number] ROOM/BED: [facility]311 : 71 AGE: 54 SEX: F ATTEND: Wood Castro MD ADM AUTHOR: Chapin Bar MD REPT SERVICE DT/TIME: 03/16/24 1626 * ALL edits or amendments must be made on the electronic/computer document * Subjective Chief complaint: right foot pain Review of Systems ROS All systems rev neg: except as marked Objective General VS/I O Last Documented: Result Date Time Pulse Ox 95 03/16 1618 B/P 109/70 03/16 1618 B/P Mean 83.0 03/16 161 Temp 99.3 03/16 1618 Pulse 102 03/16 1618 Resp 16 03/16 1618 O2 Delivery Room air 03/15 2330 24 hour I O ending at 0700: 03/16 0700 03/15 1900 Intake Total 900 Output Total 1500 Balance -600 Intake, Oral 900 Number 1 Bowel Movements Output, Urine 1500 PATIENT WEIGHT: Weight (lb): 149 Weight (oz): 4.05 Weight (kg): 67.585 Medications: Active Meds + DC'd Last 24 Hrs Potassium Chloride (K-DUR) 40 MEQ ONCE ONE PO (DC) Insulin Glargine (Lantus/Semglee) 15 UNIT Q12HR SUBQ Acetaminophen (TYLENOL 325MG TABLET) 650 MG Q4H PRN PRN PO Cefazolin Sodium (Cefazolin Sodium) 2 GM Q8H IV Sodium Chloride (NORMAL SALINE 10ML VIAL) 10 ML Insulin Human Lispro (HumaLOG) 5 UNIT TID MEALS SUBQ Gabapentin (NEURONTIN 100MG CAPSULE) 100 MG TID PO Hydrocodone Bitart/Acetaminophen (NORCO 5-325 TABLET) 1 TAB Q4H PRN PRN PO Morphine Sulfate (morphine SULFATE) 2 MG Q4H PRN PRN IV Insulin Human Lispro (HumaLOG) AGGRESSIVE SLIDING SCALE (steroids, infection, resistant) AC HS 0200 SUBQ Dextrose (GLUCOSE) 16 GM ASDIR PRN PO Dextrose/Water (DEXTROSE 50% 50ML SYRINGE) 12.5 GM ASDIR PRN IV Mupirocin (BACTROBAN 2% OINTMENT 22 GMS) 1 APPL BID NASAL Ondansetron HCl (ZOFRAN 4 MG/2 ML) 4 MG Q4H PRN PRN IV Sodium Chloride (NORMAL SALINE 250ML IV BAG) 250 ML ASDIR PRN IV Results Findings/Data: Laboratory Tests 03/16/24 0207: [Embedded Image Not Available] Laboratory Tests 03/16 03/16 03/16 03/16 03/15 1607 1041 0322 0207 2124 Chemistry Sodium (133 - 145 MMOL/L) 137 Potassium (3.6 - 5.2 MMOL/L) 3.3 L Chloride (100 - 108 MMOL/L) 100 Carbon Dioxide (22 - 32 MMOL/L) 31 BUN (6 - 20 MG/DL) 4 L Creatinine (0.60 - 1.00 MG/DL) 0.48 L Estimated GFR (MDRD) (51 - 120) 113 Glucose (65 - 99 MG/DL) 177 H POC Glucose (65 - 99 MG/DL) 151 H 228 H 168 H 137 H Calcium (8.7 - 10.5 MG/DL) 7.8 L Phosphorus (2.5 - 4.9 MG/DL) 3.2 Magnesium (1.8 - 2.4 MG/DL) 1.9 Total Bilirubin (0.0 - 1.0 MG/DL) 0.3 AST (15 - 37 Units/L) 16 ALT (30 - 65 Units/L) < 6 L Alkaline Phosphatase (50 - 136 Units/L) 83 Total Protein (6.4 - 8.2 G/DL) 6.8 Albumin (3.4 - 5.0 G/DL) 1.6 L Globulin (1.5 - 3.8 G/DL) 5.2 H Albumin/Globulin Ratio (1.1 - 2.2) 0.3 L Laboratory Tests 03/16 0207 Hematology WBC (4.80 - 10.80 x10 3/uL) 12.80 H RBC (4.2 - 5.4 x10 6/uL) 3.34 L Hgb (12.0 - 16.0 G/DL) 9.6 L Hct (37 - 47 %) 29.3 L MCV (81 - 99 FL) 87.7 MCH (27 - 31 PG) 28.7 MCHC (33 - 37 G/DL) 32.8 L RDW Coeff of Rupert (11.5 - 14.5 %) 12.4 Plt Count (150 - 450 x10 3/uL) 327 MPV (7.4 - 10.4 FL) 8.9 Neut % (Auto) (42 - 86 %) 76.0 Lymph % (Auto) (24 - 44 %) 15.8 L [place] % (Auto) (0.0 - 4.0 %) 6.6 H Eos % (Auto) (0.0 - 2.7 %) 0.3 Baso % (Auto) (0.0 - 0.5 %) 0.2 Eos # (Auto) (0.0 - 0.5 x10 3/uL) 0.04 Baso # (Auto) (0.0 - 0.2 x10 3/uL) 0.02 Abs Immat Gran (auto) (0.00 - 0.03 x10 3/uL) 0.14 H Absolute Neuts (auto) (1.8 - 7.7 x10 3/uL) 9.73 H Absolute Lymphs (auto) (1.0 - 4.8 x10 3/uL) 2.02 Absolute Monos (auto) (0.0 - 0.8 x10 3/uL) 0.85 H Absolute Nucleated RBC (0.0 - 0.2 X10 3/uL) 0.0 Immature Gran % (0.0 - 2.0 %) 1.1 Nucleated RBC % (0.0 - 0.0 %) 0.0 Results: labs reviewed, vital signs stable, x-ray personally reviewed, current med profile rev'd Free Text Obj Notes Free Text Obj Notes: General appearance: chronically ill appearing, alert, awake, oriented, no acute distress, pleasant, conversational, mental status normal, no respiratory distress Head/eyes: atraumatic, clear cornea, PERRLA ENT: dry mucosal membrane, poor dentition Neck: full range of motion, non-tender, no JVD, no masses or swelling Cardiovascular: normal capillary refill, normal heart sounds, regular rate and rhythm, normal S1/S2, no ectopy Respiratory: aerating well, clear to auscultation, symmetric expansion, no distress Abdomen: soft, non-tender Genitourinary: no bladder distention, no flank pain, no urinary catheter Extremities: edema (to RLE), moves all, normal capillary refill, normal range of motion, no calf tenderness, no clubbing, no cyanosis Musculoskeletal normal inspection, painless range of motion Neuro/GATE SUPERVISOR: alert, oriented X 3, normal speech, reflexes equal bilat, no motor deficits, no sensory deficits Skin: abscess (to right foot), dry, intact, normal color, normal temperature, no rash Wound/incision: Location: right foot blister Site condition: no drainage Psychiatry: normal affect, normal judgment/insight, normal mood, not homicidal, not suicidal, no hallucinations Diagnosis, Assessment Plan Free text A P: Acute renal failure Diabetic ketoacidosis Severe sepsis Right foot abscess Uncontrolled type 2 diabetes Normocytic anemia Hypokalemia Patient's mentation appears to be at baseline, no acute neuroconcerns She is saturating well on room air Hemodynamically stable, will continue to monitor closely Vasopressors as needed to maintain MAP greater than 65 Monitor renal function closely Strict I's and O's Avoid nephrotoxic medications Transitioned to basal bolus regimen Continue with antibiotics as per ID ID is following Tolerating a diet DVT prophylaxis GI prophylaxis CODE STATUS to full code Medical decision making: High complexity Continue assessment prior at 1627 RPT #:[id number] END OF [id number] 13:22:00 [facility] ([facility]) Hospitalist Progress Note REPORT#:[id number] REPORT STATUS: Signed REPORT INITIALIZATION DATE:03/16/24 TIME: 1322 PATIENT: TSERING BRAUN UNIT #: [id number] ROOM/BED: [place] [id number] : 71 AGE: 54 SEX: F ATTEND: Wood Castro MD ADM AUTHOR: Wood Castro MD REPT SERVICE DT/TIME: 03/16/24 1322 * ALL edits or amendments must be made on the electronic/computer document * Subjective Chief complaint: Right foot pain HPI: 03/14/24 Patient seen today at bedside. No acute overnight events. Patient reports continued right foot pain. Denies fever, chills, chest pain, abdominal pain or dysuria. Review of Systems Free Text ROS Notes Free Text ROS Notes: Negative except for pertinent positives noted in HPI. Objective General VS/I O: Vital Signs: Date Time Temp Pulse Resp B/P B/P Pulse O2 O2 Flow FiO2 Mean Ox Delivery Rate 03/16 1043 99.0 97 16 99/64 75.4 96 03/16 0725 99.0 97 16 131/79 96.1 98 03/16 0325 98.8 101 14 104/69 80.8 96 03/15 2330 98.1 90 17 101/67 78.2 96 Room air 03/15 2000 98.2 92 17 110/72 84.6 100 Room air 03/15 1605 98.1 77 16 97/61 72.9 98 24 hour I O ending at 0700: 03/16 0700 03/15 1900 Intake Total 900 Output Total 1500 Balance -600 Intake, Oral 900 Number 1 Bowel Movements Output, Urine 1500 PATIENT WEIGHT: Weight (lb): 149 Weight (oz): 4.05 Weight (kg): 67.585 Medications: Active Meds + DC'd Last 24 Hrs Potassium Chloride (K-DUR) 40 MEQ ONCE ONE PO (DC) Insulin Glargine (Lantus/Semglee) 15 UNIT Q12HR SUBQ Acetaminophen (TYLENOL 325MG TABLET) 650 MG Q4H PRN PRN PO Cefazolin Sodium (Cefazolin Sodium) 2 GM Q8H IV Sodium Chloride (NORMAL SALINE 10ML VIAL) 10 ML Insulin Human Lispro (HumaLOG) 5 UNIT TID MEALS SUBQ Gabapentin (NEURONTIN 100MG CAPSULE) 100 MG TID PO Hydrocodone Bitart/Acetaminophen (NORCO 5-325 TABLET) 1 TAB Q4H PRN PRN PO Morphine Sulfate (morphine SULFATE) 2 MG Q4H PRN PRN IV Insulin Human Lispro (HumaLOG) AGGRESSIVE SLIDING SCALE (steroids, infection, resistant) AC HS 0200 SUBQ Dextrose (GLUCOSE) 16 GM ASDIR PRN PO Dextrose/Water (DEXTROSE 50% 50ML SYRINGE) 12.5 GM ASDIR PRN IV Mupirocin (BACTROBAN 2% OINTMENT 22 GMS) 1 APPL BID NASAL Ondansetron HCl (ZOFRAN 4 MG/2 ML) 4 MG Q4H PRN PRN IV Sodium Chloride (NORMAL SALINE 250ML IV BAG) 250 ML ASDIR PRN IV Physical Exam General appearance: alert, awake, oriented Head/Eyes: atraumatic, normocephalic ENT: normal ear left, normal ear right Neck: full range of motion, no JVD Cardiovascular: regular rate rhythm, no heave Respiratory: symmetric expansion, no distress Abdomen: non-tender, soft Genitourinary: no flank pain, no urinary catheter Extremities: decreased range of motion, moves all Musculoskeletal: decreased ROM, no CVA tenderness Neuro/GATE SUPERVISOR: alert, oriented X 3, no motor deficits Skin: dry, normal temperature Psychiatry: anxious, not homicidal, not suicidal Results Findings/Data: Laboratory Tests 03/16 03/16 03/16 03/15 03/15 1041 0322 0207 2124 1500 Chemistry Sodium (133 - 145 MMOL/L) 137 Potassium (3.6 - 5.2 MMOL/L) 3.3 L Chloride (100 - 108 MMOL/L) 100 Carbon Dioxide (22 - 32 MMOL/L) 31 BUN (6 - 20 MG/DL) 4 L Creatinine (0.60 - 1.00 MG/DL) 0.48 L Estimated GFR (MDRD) (51 - 120) 113 Glucose (65 - 99 MG/DL) 177 H POC Glucose (65 - 99 MG/DL) 228 H 168 H 137 H 215 H Calcium (8.7 - 10.5 MG/DL) 7.8 L Phosphorus (2.5 - 4.9 MG/DL) 3.2 Magnesium (1.8 - 2.4 MG/DL) 1.9 Total Bilirubin (0.0 - 1.0 MG/DL) 0.3 AST (15 - 37 Units/L) 16 ALT (30 - 65 Units/L) < 6 L Alkaline Phosphatase (50 - 136 Units/L) 83 Total Protein (6.4 - 8.2 G/DL) 6.8 Albumin (3.4 - 5.0 G/DL) 1.6 L Globulin (1.5 - 3.8 G/DL) 5.2 H Albumin/Globulin Ratio (1.1 - 2.2) 0.3 L Laboratory Tests 03/16 0207 Hematology WBC (4.80 - 10.80 x10 3/uL) 12.80 H RBC (4.2 - 5.4 x10 6/uL) 3.34 L Hgb (12.0 - 16.0 G/DL) 9.6 L Hct (37 - 47 %) 29.3 L MCV (81 - 99 FL) 87.7 MCH (27 - 31 PG) 28.7 MCHC (33 - 37 G/DL) 32.8 L RDW Coeff of Rupert (11.5 - 14.5 %) 12.4 Plt Count (150 - 450 x10 3/uL) 327 MPV (7.4 - 10.4 FL) 8.9 Neut % (Auto) (42 - 86 %) 76.0 Lymph % (Auto) (24 - 44 %) 15.8 L [place] % (Auto) (0.0 - 4.0 %) 6.6 H Eos % (Auto) (0.0 - 2.7 %) 0.3 Baso % (Auto) (0.0 - 0.5 %) 0.2 Eos # (Auto) (0.0 - 0.5 x10 3/uL) 0.04 Baso # (Auto) (0.0 - 0.2 x10 3/uL) 0.02 Abs Immat Gran (auto) (0.00 - 0.03 x10 3/uL) 0.14 H Absolute Neuts (auto) (1.8 - 7.7 x10 3/uL) 9.73 H Absolute Lymphs (auto) (1.0 - 4.8 x10 3/uL) 2.02 Absolute Monos (auto) (0.0 - 0.8 x10 3/uL) 0.85 H Absolute Nucleated RBC (0.0 - 0.2 X10 3/uL) 0.0 Immature Gran % (0.0 - 2.0 %) 1.1 Nucleated RBC % (0.0 - 0.0 %) 0.0 Results: labs reviewed, vital signs reviewed, current med profile rev'd Diagnosis, Assessment Plan Consultants: critical/draw bench operator helper Free Text DxA P Notes Free text DxA P notes: Assessment: Right Foot Cellulitis and Abductor Longus Abscess Sepsis (POA) 2/2 above Diabetic ketoacidosis, now resolved Insulin-dependent type 2 diabetes mellitus with severe hyperglycemia Hypokalemia HTN HLD Chronic anemia Plan: Podiatry consulted, appreciate recommendations; patient tentatively scheduled for Monday Infectious disease consulted, appreciate recommendations; continue with cefazolin for now IR consulted for abscess drainage; patient will need surgical debridement by podiatry Continue to monitor blood cultures; negative so far c/w agressive SSI, Lantus 15 unit Q12 Pain control Continue to monitor hemoglobin Monitor electrolytes, replete as indicated PT eval treat Wound care eval and treat Diet: Diabetic Discussed with patient about goals of care. Explained in detail about the various categories of CODE STATUS. Answered all questions. Wishes are to proceed with FULL CODE STATUS. Advanced care planning performed for more than 16 minutes. Long conversation with patient and patient family at bedside regarding hospital course and plan. All questions answered. High complexity medical decision making Total care time spent was 68 minutes at 0244 RPT #:[id number] END OF [id number] 11:07:00 [facility] ([facility]) Infectious Dis. Progress Note REPORT#:[id number] REPORT STATUS: Signed REPORT INITIALIZATION DATE:03/16/24 TIME: 110 PATIENT: TSERING BRAUN UNIT #: [id number] ROOM[address]BED: [address] : 71 AGE: 54 SEX: F ATTEND: Garrett Rhodes DO ADM AUTHOR: Danica Granger APRN DNP TRIM MACHINE OPERATOR REPT SERVICE DT/TIME: 03/16/24 1107 * ALL edits or amendments must be made on the electronic/computer document * Subjective HPI: Reason for consultation foot abscess and cellulitis. History of present illness Patient is 54-year-old female present to the hospital complains of pain redness swelling of her right foot with evidence of possible abscess. She did not recall how it started. Patient has foot neuropathy. Temperature was 104. Patient is on currently BKA admitted to the ICU with insulin drip. CT of the right lower extremity revealed 2.3 x 0.8 4.8 cm abscess. Patient is currently on vancomycin and Zosyn. Podiatry consult is currently pending I believe. Review of systems; : patient does not report any headaches or visual disturbances. Rest of the 10 systems are normal or as above. Reviewed all the labs CBC CMP all imaging studies and it systems analyst consultant notes and primary care physician notes. Objective General VS/I O: Vital Signs Date Temp Pulse Resp B/P B/P Mean Pulse Ox FiO2 03/15-03/16 98.1-100.0 77-101 - 97-131/61-79 72.9-96.1 96-100 Last Documented: Result Date Time Pulse Ox 96 03/16 1043 B/P 99/64 03/16 1043 B/P Mean 75.4 03/16 1043 Temp 99.0 03/16 1043 Pulse 97 03/16 1043 Resp 16 03/16 1043 O2 Delivery Room air 03/15 2330 Vital Signs: Date Time Temp Pulse Resp B/P B/P Pulse O2 O2 Flow FiO2 Mean Ox Delivery Rate 03/16 1043 99.0 97 16 99/64 75.4 96 03/16 0725 99.0 97 16 131/79 96.1 98 03/16 0325 98.8 101 14 104/69 80.8 96 03/15 2330 98.1 90 17 101/67 78.2 96 Room air 03/15 2000 98.2 92 17 110/72 84.6 100 Room air 03/15 1605 98.1 77 16 97/61 72.9 98 03/15 1157 100.0 99 16 115/71 85.3 98 24 hour I O ending at 0700: 03/16 0700 03/15 1900 Intake Total 900 Output Total 1500 Balance -600 Intake, Oral 900 Number 1 Bowel Movements Output, Urine 1500 PATIENT WEIGHT: Weight (lb): 149 Weight (oz): 4.05 Weight (kg): 67.585 Physical Exam Wound/incision: Location: R foot Site condition: dressing clean dry, dressing intact Cardiovascular: normal heart sounds Respiratory: aerating well, symmetric expansion, no distress Abdomen: non-tender, soft Genitourinary: no urinary catheter Extremities: moves all Neuro/GATE SUPERVISOR: alert, oriented X 3 Skin: no rash Psychiatry: normal affect, normal judgment/insight, normal mood Results Findings/Data: Laboratory Tests 03/16 03/16 03/16 03/15 03/15 1041 0322 0207 2124 1500 Chemistry Sodium (133 - 145 MMOL/L) 137 Potassium (3.6 - 5.2 MMOL/L) 3.3 L Chloride (100 - 108 MMOL/L) 100 Carbon Dioxide (22 - 32 MMOL/L) 31 BUN (6 - 20 MG/DL) 4 L Creatinine (0.60 - 1.00 MG/DL) 0.48 L Estimated GFR (MDRD) (51 - 120) 113 Glucose (65 - 99 MG/DL) 177 H POC Glucose (65 - 99 MG/DL) 228 H 168 H 137 H 215 H Calcium (8.7 - 10.5 MG/DL) 7.8 L Phosphorus (2.5 - 4.9 MG/DL) 3.2 Magnesium (1.8 - 2.4 MG/DL) 1.9 Total Bilirubin (0.0 - 1.0 MG/DL) 0.3 AST (15 - 37 Units/L) 16 ALT (30 - 65 Units/L) < 6 L Alkaline Phosphatase (50 - 136 Units/L) 83 Total Protein (6.4 - 8.2 G/DL) 6.8 Albumin (3.4 - 5.0 G/DL) 1.6 L Globulin (1.5 - 3.8 G/DL) 5.2 H Albumin/Globulin Ratio (1.1 - 2.2) 0.3 L Laboratory Tests 03/16 0207 Hematology WBC (4.80 - 10.80 x10 3/uL) 12.80 H RBC (4.2 - 5.4 x10 6/uL) 3.34 L Hgb (12.0 - 16.0 G/DL) 9.6 L Hct (37 - 47 %) 29.3 L MCV (81 - 99 FL) 87.7 MCH (27 - 31 PG) 28.7 MCHC (33 - 37 G/DL) 32.8 L RDW Coeff of Rupert (11.5 - 14.5 %) 12.4 Plt Count (150 - 450 x10 3/uL) 327 MPV (7.4 - 10.4 FL) 8.9 Neut % (Auto) (42 - 86 %) 76.0 Lymph % (Auto) (24 - 44 %) 15.8 L [place] % (Auto) (0.0 - 4.0 %) 6.6 H Eos % (Auto) (0.0 - 2.7 %) 0.3 Baso % (Auto) (0.0 - 0.5 %) 0.2 Eos # (Auto) (0.0 - 0.5 x10 3/uL) 0.04 Baso # (Auto) (0.0 - 0.2 x10 3/uL) 0.02 Abs Immat Gran (auto) (0.00 - 0.03 x10 3/uL) 0.14 H Absolute Neuts (auto) (1.8 - 7.7 x10 3/uL) 9.73 H Absolute Lymphs (auto) (1.0 - 4.8 x10 3/uL) 2.02 Absolute Monos (auto) (0.0 - 0.8 x10 3/uL) 0.85 H Absolute Nucleated RBC (0.0 - 0.2 X10 3/uL) 0.0 Immature Gran % (0.0 - 2.0 %) 1.1 Nucleated RBC % (0.0 - 0.0 %) 0.0 Laboratory Tests 03/15 1300 Toxicology Vancomycin Trough (10.0 - 20.0 MCG/ML) < 2.0 L Diagnosis, Assessment Plan Free Text A P: Assessment Patient is 54-year-old female present to the hospital complains of pain redness swelling of her right foot with evidence of possible abscess. She did not recall how it started. Patient has foot neuropathy. Temperature was 104. Patient is on currently BKA admitted to the ICU with insulin drip. CT of the right lower extremity revealed 2.3 x 0.8 4.8 cm abscess. Patient is currently on vancomycin and Zosyn. Podiatry consult is currently pending I believe. Plan At this time continue with IV vancomycin and Zosyn. Podiatry consultation for possible abscess drainage. Will follow and make further recommendations based on culture results. Thank you for the consultation. 03/14/24 transferred to [facility] floor 03/13 febrile Tmax 103.1; will continue to follow temperature curve with leukocytosis of 16k; will follow on room air; no acute distress noted reports she believes blister ruptured; dressing to R foot c,d,i - wound care notified reports pain to R foot controlled at this time blood cultures 03/12 negative so far; will follow urine cultures 03/13 Staph aureus will change antibiotic to IV Cefazolin monitor for antibiotic related adverse effects pending transfer to [facility] for podiatry evaluation will continue to follow clinically Recommendations per Dr Burks 03/16 -low grade temp x 1 -wbc 12k -pending I D of abscess on 03/19 blood cultures 03/12 NGTD urine cultures 03/13 Staph aureus Cont. on IV Cefazolin monitor for antibiotic related adverse effects pending podiatry evaluation will continue to follow clinically Reviewed with Dr Burks at 1111 at 2238 [facility] #:[id number] END OF [id number] 18:53:00 [facility] ([facility]) Critical Care Progress Note REPORT#:[id number] REPORT STATUS: Signed REPORT INITIALIZATION DATE:03/15/24 TIME: 1852 PATIENT: TSERING BRAUN UNIT #: [id number] ROOM/BED: [place] [address] : 71 AGE: 54 SEX: F ATTEND: Wood Castro MD ADM AUTHOR: Chapin Bar MD REPT SERVICE DT/TIME: 03/15/241852 * ALL edits or amendments must be made on the electronic/computer document * Subjective Chief complaint: right foot pain Review of Systems ROS Psych: Denies: homicidal ideation, suicidal ideation. All systems rev neg: except as marked Objective General VS/I O Last Documented: Result Date Time Pulse Ox 98 03/15 1605 B/P 97/61 03/15 1605 B/P Mean 72.9 03/15 1605 Temp 98.1 03/15 1605 Pulse 77 03/15 1605 Resp 16 03/15 1605 O2 Delivery Room air 03/14 0804 24 hour I O ending at 0700: 03/15 0700 03/14 1900 Intake Total 550 Output Total 900 Balance -900 550 Intake, Oral 550 Number Voids 1 Output, Urine 900 PATIENT WEIGHT: Weight (lb): 149 Weight (oz): 4.05 Weight (kg): 67.585 Medications: Active Meds + DC'd Last 24 Hrs Insulin Glargine (Lantus/Semglee) 15 UNIT Q12HR SUBQ Acetaminophen (TYLENOL 325MG TABLET) 650 MG Q4H PRN PRN PO Cefazolin Sodium (Cefazolin Sodium) 2 GM Q8H IV Sodium Chloride (NORMAL SALINE 10ML VIAL) 10 ML Insulin Human Lispro (HumaLOG) 5 UNIT TID MEALS SUBQ Gabapentin (NEURONTIN 100MG CAPSULE) 100 MG TID PO Lactated Ringer's (LACTATED RINGERS 1000ML) 1,000 ML .Q10H IV (DC) Hydrocodone Bitart/Acetaminophen (NORCO 5-325 TABLET) 1 TAB Q4H PRN PRN PO Morphine Sulfate (morphine SULFATE) 2 MG Q4H PRN PRN IV Insulin Human Lispro (HumaLOG) AGGRESSIVE SLIDING SCALE (steroids, infection, resistant) AC HS 0200 SUBQ Dextrose (GLUCOSE) 16 GM ASDIR PRN PO Dextrose/Water (DEXTROSE 50% 50ML SYRINGE) 12.5 GM ASDIR PRN IV Famotidine (PEPCID 20MG TABLET) 20 MG DAILY PO (DC) Mupirocin (BACTROBAN 2% OINTMENT 22 GMS) 1 APPL BID NASAL Ondansetron HCl (ZOFRAN 4 MG/2 ML) 4 MG Q4H PRN PRN IV Sodium Chloride (NORMAL SALINE 250ML IV BAG) 250 ML ASDIR PRN IV Results Findings/Data: Laboratory Tests 03/15/24 0205: [Embedded Image Not Available] Laboratory Tests 03/15 03/15 03/15 03/15 03/15 1500 1046 0528 0215 0205 Chemistry Sodium (133 - 145 MMOL/L) 138 Potassium (3.6 - 5.2 MMOL/L) 3.6 Chloride (100 - 108 MMOL/L) 101 Carbon Dioxide (22 - 32 MMOL/L) 32 BUN (6 - 20 MG/DL) 6 Creatinine (0.60 - 1.00 MG/DL) 0.57 L Estimated GFR (MDRD) (51 - 120) 109 Glucose (65 - 99 MG/DL) 136 H POC Glucose (65 - 99 MG/DL) 215 H 224 H 143 H 134 H Calcium (8.7 - 10.5 MG/DL) 8.4 L Phosphorus (2.5 - 4.9 MG/DL) 3.0 Magnesium (1.8 - 2.4 MG/DL) 2.1 Total Bilirubin (0.0 - 1.0 MG/DL) 0.4 AST (15 - 37 Units/L) 15 ALT (30 - 65 Units/L) 8 L Alkaline Phosphatase (50 - 136 85 Units/L) Total Protein (6.4 - 8.2 G/DL) 7.2 Albumin (3.4 - 5.0 G/DL) 1.7 L Globulin (1.5 - 3.8 G/DL) 5.5 H Albumin/Globulin Ratio (1.1 - 2.2) 0.3 L 06/13 1950 Chemistry POC Glucose (65 - 99 MG/DL) 123 H Laboratory Tests 03/15 0205 Coagulation PT (9.6 - 12.3 SECONDS) 15.2 H INR 1.32 APTT (22.5 - 35.3 SECONDS) 48.7 H Laboratory Tests 03/15 0205 Hematology WBC (4.80 - 10.80 x10 3/uL) 15.52 H RBC (4.2 - 5.4 x10 6/uL) 3.62 L Hgb (12.0 - 16.0 G/DL) 10.4 L Hct (37 - 47 %) 32.0 L MCV (81 - 99 FL) 88.4 MCH (27 - 31 PG) 28.7 MCHC (33 - 37 G/DL) 32.5 L RDW Coeff of Rupert (11.5 - 14.5 %) 12.5 Plt Count (150 - 450 x10 3/uL) 348 MPV (7.4 - 10.4 FL) 8.9 Neut % (Auto) (42 - 86 %) 78.8 Lymph % (Auto) (24 - 44 %) 13.0 L [place] % (Auto) (0.0 - 4.0 %) 6.8 H Eos % (Auto) (0.0 - 2.7 %) 0.1 Baso % (Auto) (0.0 - 0.5 %) 0.3 Eos # (Auto) (0.0 - 0.5 x10 3/uL) 0.02 Baso # (Auto) (0.0 - 0.2 x10 3/uL) 0.04 Abs Immat Gran (auto) (0.00 - 0.03 x10 3/uL) 0.15 H Absolute Neuts (auto) (1.8 - 7.7 x10 3/uL) 12.25 H Absolute Lymphs (auto) (1.0 - 4.8 x10 3/uL) 2.01 Absolute Monos (auto) (0.0 - 0.8 x10 3/uL) 1.05 H Absolute Nucleated RBC (0.0 - 0.2 X10 3/uL) 0.0 Immature Gran % (0.0 - 2.0 %) 1.0 Nucleated RBC % (0.0 - 0.0 %) 0.0 Laboratory Tests 06/14 1300 Toxicology Vancomycin Trough (10.0 - 20.0 MCG/ML) < 2.0 L Microbiology: 03/13 0220 NARES-MRSA: MRSA Screen - COMP 03/13 200 URINE: Urine Culture - COMP STAPHYLOCOCCUS AUREUS 03/13 24 FOOT: Wound Culture - CAN Cancelled: Cancelled via OE: Physician Decision 03/13 24 FOOT: Gram Stain - CAN Cancelled: Cancelled via OE: Physician Decision 03/12 1949 BLOOD: Blood Culture - RES 03/12 1941 BLOOD: Blood Culture - RES Results: labs reviewed, vital signs stable, x-ray personally reviewed, current med profile rev'd Free Text Obj Notes Free Text Obj Notes: General appearance: chronically ill appearing, alert, awake, oriented, no acute distress, pleasant, conversational, mental status normal, no respiratory distress Head/eyes: atraumatic, clear cornea, PERRLA ENT: dry mucosal membrane, poor dentition Neck: full range of motion, non-tender, no JVD, no masses or swelling Cardiovascular: normal capillary refill, normal heart sounds, regular rate and rhythm, normal S1/S2, no ectopy Respiratory: aerating well, clear to auscultation, symmetric expansion, no distress Abdomen: soft, non-tender Genitourinary: no bladder distention, no flank pain, no urinary catheter Extremities: edema (to RLE), moves all, normal capillary refill, normal range of motion, no calf tenderness, no clubbing, no cyanosis Musculoskeletal normal inspection, painless range of motion Neuro/GATE SUPERVISOR: alert, oriented X 3, normal speech, reflexes equal bilat, no motor deficits, no sensory deficits Skin: abscess (to right foot), dry, intact, normal color, normal temperature, no rash Wound/incision: Location: right foot blister Site condition: no drainage Psychiatry: normal affect, normal judgment/insight, normal mood, not homicidal, not suicidal, no hallucinations Diagnosis, Assessment Plan Free text A P: Acute renal failure Diabetic ketoacidosis Severe sepsis Right foot abscess Uncontrolled type 2 diabetes Normocytic anemia Hypokalemia Patient's mentation appears to be at baseline, no acute neuroconcerns She is saturating well on room air Hemodynamically stable, will continue to monitor closely Vasopressors as needed to maintain MAP greater than 65 Monitor renal function closely Strict I's and O's Avoid nephrotoxic medications Transitioned to basal bolus regimen Continue with antibiotics as per ID ID is following Tolerating a diet DVT prophylaxis GI prophylaxis CODE STATUS to full code Medical decision making: High complexity Continue assessment prior at 1854 RPT #:[id number] END OF [id number] 16:49:00 [facility] ([facility]) Hospitalist Progress Note REPORT#:[id number] REPORT STATUS: Signed REPORT INITIALIZATION DATE:03/15/24 TIME: 1648 PATIENT: TSERING BRAUN UNIT #: [id number] ROOM/BED: [place] [address] : 71 AGE: 54 SEX: F ATTEND: Wood Castro MD ADM AUTHOR: Wood Castro MD REPT SERVICE DT/TIME: 03/15/241648 * ALL edits or amendments must be made on the electronic/computer document * Subjective Chief complaint: Right foot pain HPI: 03/14/24 Patient seen today at bedside. No acute overnight events. Patient reports continued right foot pain. Denies fever, chills, chest pain, abdominal pain or dysuria. Review of Systems Free Text ROS Notes Free Text ROS Notes: Negative except for pertinent positives noted in HPI. Objective General VS/I O: Vital Signs: Date Time Temp Pulse Resp B/P B/P Pulse O2 O2 Flow FiO2 Mean Ox Delivery Rate 03/15 1605 98.1 77 16 97/61 72.9 98 03/15 1157 100.0 99 16 115/71 85.3 98 03/15 0753 99.5 101 16 122/78 92.5 93 03/15 0435 99.5 104 16 120/77 91.2 96 03/14 2323 98.8 85 16 93/62 72.3 94 03/14 2200 98.4 03/14 1949 100.6 111 16 99/63 74.7 94 24 hour I O ending at 0700: 03/15 0700 03/14 1900 Intake Total 550 Output Total 900 Balance -900 550 Intake, Oral 550 Number Voids 1 Output, Urine 900 PATIENT WEIGHT: Weight (lb): 149 Weight (oz): 4.05 Weight (kg): 67.585 Medications: Active Meds + DC'd Last 24 Hrs Insulin Glargine (Lantus/Semglee) 15 UNIT Q12HR SUBQ Acetaminophen (TYLENOL 325MG TABLET) 650 MG Q4H PRN PRN PO Cefazolin Sodium (Cefazolin Sodium) 2 GM Q8H IV Sodium Chloride (NORMAL SALINE 10ML VIAL) 10 ML Insulin Human Lispro (HumaLOG) 5 UNIT TID MEALS SUBQ Gabapentin (NEURONTIN 100MG CAPSULE) 100 MG TID PO Lactated Ringer's (LACTATED RINGERS 1000ML) 1,000 ML .Q10H IV (DC) Hydrocodone Bitart/Acetaminophen (NORCO 5-325 TABLET) 1 TAB Q4H PRN PRN PO Morphine Sulfate (morphine SULFATE) 2 MG Q4H PRN PRN IV Insulin Human Lispro (HumaLOG) AGGRESSIVE SLIDING SCALE (steroids, infection, resistant) AC HS 0200 SUBQ Dextrose (GLUCOSE) 16 GM ASDIR PRN PO Dextrose/Water (DEXTROSE 50% 50ML SYRINGE) 12.5 GM ASDIR PRN IV Famotidine (PEPCID 20MG TABLET) 20 MG DAILY PO (DC) Mupirocin (BACTROBAN 2% OINTMENT 22 GMS) 1 APPL BID NASAL Ondansetron HCl (ZOFRAN 4 MG/2 ML) 4 MG Q4H PRN PRN IV Sodium Chloride (NORMAL SALINE 250ML IV BAG) 250 ML ASDIR PRN IV Physical Exam General appearance: alert, awake, oriented Head/Eyes: atraumatic, normocephalic ENT: normal ear left, normal ear right Neck: full range of motion, no JVD Cardiovascular: regular rate rhythm, no heave Respiratory: symmetric expansion, no distress Abdomen: non-tender, soft Genitourinary: no flank pain, no urinary catheter Extremities: decreased range of motion, moves all Musculoskeletal: decreased ROM, no CVA tenderness Neuro/GATE SUPERVISOR: alert, oriented X 3, no motor deficits Skin: dry, normal temperature Psychiatry: anxious, not homicidal, not suicidal Results Findings/Data: Laboratory Tests 03/15 03/15 03/15 03/15 03/15 1500 1046 0528 0215 0205 Chemistry Sodium (133 - 145 MMOL/L) 138 Potassium (3.6 - 5.2 MMOL/L) 3.6 Chloride (100 - 108 MMOL/L) 101 Carbon Dioxide (22 - 32 MMOL/L) 32 BUN (6 - 20 MG/DL) 6 Creatinine (0.60 - 1.00 MG/DL) 0.57 L Estimated GFR (MDRD) (51 - 120) 109 Glucose (65 - 99 MG/DL) 136 H POC Glucose (65 - 99 MG/DL) 215 H 224 H 143 H 134 H Calcium (8.7 - 10.5 MG/DL) 8.4 L Phosphorus (2.5 - 4.9 MG/DL) 3.0 Magnesium (1.8 - 2.4 MG/DL) 2.1 Total Bilirubin (0.0 - 1.0 MG/DL) 0.4 AST (15 - 37 Units/L) 15 ALT (30 - 65 Units/L) 8 L Alkaline Phosphatase (50 - 136 Units/L) 85 Total Protein (6.4 - 8.2 G/DL) 7.2 Albumin (3.4 - 5.0 G/DL) 1.7 L Globulin (1.5 - 3.8 G/DL) 5.5 H Albumin/Globulin Ratio (1.1 - 2.2) 0.3 L 03/14 1950 Chemistry POC Glucose (65 - 99 MG/DL) 123 H Laboratory Tests 03/15 0205 Coagulation PT (9.6 - 12.3 SECONDS) 15.2 H INR 1.32 APTT (22.5 - 35.3 SECONDS) 48.7 H Laboratory Tests 03/15 0205 Hematology WBC (4.80 - 10.80 x10 3/uL) 15.52 H RBC (4.2 - 5.4 x10 6/uL) 3.62 L Hgb (12.0 - 16.0 G/DL) 10.4 L Hct (37 - 47 %) 32.0 L MCV (81 - 99 FL) 88.4 MCH (27 - 31 PG) 28.7 MCHC (33 - 37 G/DL) 32.5 L RDW Coeff of Rupert (11.5 - 14.5 %) 12.5 Plt Count (150 - 450 x10 3/uL) 348 MPV (7.4 - 10.4 FL) 8.9 Neut % (Auto) (42 - 86 %) 78.8 Lymph % (Auto) (24 - 44 %) 13.0 L [place] % (Auto) (0.0 - 4.0 %) 6.8 H Eos % (Auto) (0.0 - 2.7 %) 0.1 Baso % (Auto) (0.0 - 0.5 %) 0.3 Eos # (Auto) (0.0 - 0.5 x10 3/uL) 0.02 Baso # (Auto) (0.0 - 0.2 x10 3/uL) 0.04 Abs Immat Gran (auto) (0.00 - 0.03 x10 3/uL) 0.15 H Absolute Neuts (auto) (1.8 - 7.7 x10 3/uL) 12.25 H Absolute Lymphs (auto) (1.0 - 4.8 x10 3/uL) 2.01 Absolute Monos (auto) (0.0 - 0.8 x10 3/uL) 1.05 H Absolute Nucleated RBC (0.0 - 0.2 X10 3/uL) 0.0 Immature Gran % (0.0 - 2.0 %) 1.0 Nucleated RBC % (0.0 - 0.0 %) 0.0 Laboratory Tests 03/15 1300 Toxicology Vancomycin Trough (10.0 - 20.0 MCG/ML) < 2.0 L Results: labs reviewed, vital signs reviewed, current med profile rev'd Diagnosis, Assessment Plan Consultants: critical/draw bench operator helper Free Text DxA P Notes Free text DxA P notes: Assessment: Right Foot Cellulitis and Abductor Longus Abscess Sepsis (POA) 2/2 above Diabetic ketoacidosis, now resolved Insulin-dependent type 2 diabetes mellitus with severe hyperglycemia Hypokalemia HTN HLD Chronic anemia Plan: Podiatry consulted, appreciate recommendations Infectious disease consulted, appreciate recommendations; continue with cefazolin for now IR consulted for abscess drainage; patient will need surgical debridement by podiatry Continue to monitor blood cultures; negative so far c/w agressive SSI, Lantus 15 unit Q12 Pain control Continue to monitor hemoglobin Monitor electrolytes, replete as indicated PT eval treat Wound care eval and treat Diet: Diabetic Discussed with patient about goals of care. Explained in detail about the various categories of CODE STATUS. Answered all questions. Wishes are to proceed with FULL CODE STATUS. Advanced care planning performed for more than 16 minutes. High complexity medical decision making at 1321 [facility] #:[id number] END OF [id number] 08:29:00 [facility] ([facility]) Infectious Dis. Progress Note REPORT#:[id number] REPORT STATUS: Signed REPORT INITIALIZATION DATE:03/15/24 TIME: 828 PATIENT: TSERING BRAUN UNIT #: [id number] RO[address]BED: [address] : [birth year] AGE: 54 SEX: F ATTEND: Garrett Rhodes DO ADM AUTHOR: Karey Granger REPT SERVICE DT/TIME: 03/15/24828 * ALL edits or amendments must be made on the electronic/computer document * Subjective HPI: Reason for consultation foot abscess and cellulitis. History of present illness Patient is 54-year-old female present to the hospital complains of pain redness swelling of her right foot with evidence of possible abscess. She did not recall how it started. Patient has foot neuropathy. Temperature was 104. Patient is on currently BKA admitted to the ICU with insulin drip. CT of the right lower extremity revealed 2.3 x 0.8 4.8 cm abscess. Patient is currently on vancomycin and Zosyn. Podiatry consult is currently pending I believe. Review of systems; : patient does not report any headaches or visual disturbances. Rest of the 10 systems are normal or as above. Reviewed all the labs CBC CMP all imaging studies and it systems analyst consultant notes and primary care physician notes. Objective General VS/I O: Vital Signs Date Temp Pulse Resp B/P B/P Mean Pulse Ox FiO2 03/14-03/15 98.4-102.0 85-115 16 93-122/62-78 72.3-92.5 93-97 Last Documented: Result Date Time Pulse Ox 93 03/15 0753 B/P 122/78 03/15 0753 B/P Mean 92.5 03/15 0753 Temp 99.5 03/15 0753 Pulse 101 03/15 0753 Resp 16 03/15 0753 O2 Delivery Room air 03/14 0804 Vital Signs: Date Time Temp Pulse Resp B/P B/P Pulse O2 O2 Flow FiO2 Mean Ox Delivery Rate 03/15 0753 99.5 101 16 122/78 92.5 93 03/15 0435 99.5 104 16 120/77 91.2 96 03/14 2323 98.8 85 16 93/62 72.3 94 03/14 2200 98.4 03/14 1949 100.6 111 16 99/63 74.7 94 03/14 1531 102.0 115 16 98/63 74.3 95 03/14 1224 98.4 99 16 114/70 85.0 97 24 hour I O ending at 0700: 03/15 0700 03/14 1900 Intake Total 550 Output Total 900 Balance -900 550 Intake, Oral 550 Number Voids 1 Output, Urine 900 PATIENT WEIGHT: Weight (lb): 149 Weight (oz): 4.05 Weight (kg): 67.585 Physical Exam General appearance: alert, awake, oriented Wound/incision: Location: R foot Site condition: dressing clean dry, dressing intact Cardiovascular: normal heart sounds Respiratory: aerating well, symmetric expansion, no distress Abdomen: non-tender, soft Genitourinary: no urinary catheter Extremities: moves all Neuro/GATE SUPERVISOR: alert, oriented X 3 Skin: no rash Psychiatry: normal affect, normal judgment/insight, normal mood Results Findings/Data: Laboratory Tests 03/15 03/15 03/15 03/14 03/14 0528 0215 0205 1950 1528 Chemistry Sodium (133 - 145 MMOL/L) 138 Potassium (3.6 - 5.2 MMOL/L) 3.6 Chloride (100 - 108 MMOL/L) 101 Carbon Dioxide (22 - 32 MMOL/L) 32 BUN (6 - 20 MG/DL) 6 Creatinine (0.60 - 1.00 MG/DL) 0.57 L Estimated GFR (MDRD) (51 - 120) 109 Glucose (65 - 99 MG/DL) 136 H POC Glucose (65 - 99 MG/DL) 143 H 134 H 123 H 154 H Calcium (8.7 - 10.5 MG/DL) 8.4 L Phosphorus (2.5 - 4.9 MG/DL) 3.0 Magnesium (1.8 - 2.4 MG/DL) 2.1 Total Bilirubin (0.0 - 1.0 MG/DL) 0.4 AST (15 - 37 Units/L) 15 ALT (30 - 65 Units/L) 8 L Alkaline Phosphatase (50 - 136 Units/L) 85 Total Protein (6.4 - 8.2 G/DL) 7.2 Albumin (3.4 - 5.0 G/DL) 1.7 L Globulin (1.5 - 3.8 G/DL) 5.5 H Albumin/Globulin Ratio (1.1 - 2.2) 0.3 L 03/14 1225 Chemistry POC Glucose (65 - 99 MG/DL) 197 H Laboratory Tests 03/15 0205 Coagulation PT (9.6 - 12.3 SECONDS) 15.2 H INR 1.32 APTT (22.5 - 35.3 SECONDS) 48.7 H Laboratory Tests 03/15 0205 Hematology WBC (4.80 - 10.80 x10 3/uL) 15.52 H RBC (4.2 - 5.4 x10 6/uL) 3.62 L Hgb (12.0 - 16.0 G/DL) 10.4 L Hct (37 - 47 %) 32.0 L MCV (81 - 99 FL) 88.4 MCH (27 - 31 PG) 28.7 MCHC (33 - 37 G/DL) 32.5 L RDW Coeff of Rupert (11.5 - 14.5 %) 12.5 Plt Count (150 - 450 x10 3/uL) 348 MPV (7.4 - 10.4 FL) 8.9 Neut % (Auto) (42 - 86 %) 78.8 Lymph % (Auto) (24 - 44 %) 13.0 L [place] % (Auto) (0.0 - 4.0 %) 6.8 H Eos % (Auto) (0.0 - 2.7 %) 0.1 Baso % (Auto) (0.0 - 0.5 %) 0.3 Eos # (Auto) (0.0 - 0.5 x10 3/uL) 0.02 Baso # (Auto) (0.0 - 0.2 x10 3/uL) 0.04 Abs Immat Gran (auto) (0.00 - 0.03 x10 3/uL) 0.15 H Absolute Neuts (auto) (1.8 - 7.7 x10 3/uL) 12.25 H Absolute Lymphs (auto) (1.0 - 4.8 x10 3/uL) 2.01 Absolute Monos (auto) (0.0 - 0.8 x10 3/uL) 1.05 H Absolute Nucleated RBC (0.0 - 0.2 X10 3/uL) 0.0 Immature Gran % (0.0 - 2.0 %) 1.0 Nucleated RBC % (0.0 - 0.0 %) 0.0 Diagnosis, Assessment Plan Free Text A P: Assessment Patient is 54-year-old female present to the hospital complains of pain redness swelling of her right foot with evidence of possible abscess. She did not recall how it started. Patient has foot neuropathy. Temperature was 104. Patient is on currently BKA admitted to the ICU with insulin drip. CT of the right lower extremity revealed 2.3 x 0.8 4.8 cm abscess. Patient is currently on vancomycin and Zosyn. Podiatry consult is currently pending I believe. Plan At this time continue with IV vancomycin and Zosyn. Podiatry consultation for possible abscess drainage. Will follow and make further recommendations based on culture results. Thank you for the consultation. 03/14/24 transferred to [facility] floor 03/13 febrile Tmax 103.1; will continue to follow temperature curve with leukocytosis of 16k; will follow on room air; no acute distress noted reports she believes blister ruptured; dressing to R foot c,d,i - wound care notified reports pain to R foot controlled at this time blood cultures 03/12 negative so far; will follow urine cultures 03/13 Staph aureus will change antibiotic to IV Cefazolin monitor for antibiotic related adverse effects pending transfer to [facility] for podiatry evaluation will continue to follow clinically Recommendations per Dr Burks 03/15/24 Fever curve appears to be downtrending, WBC 15 K Patient reports some diarrhea this morning; will follow blood cultures 03/12 NGTD urine cultures 03/13 Staph aureus Patient is currently on IV Cefazolin monitor for antibiotic related adverse effects pending podiatry evaluation will continue to follow clinically Reviewed with Dr Burks Consultants: critical/draw bench operator helper at 1102 at 5655 RPT #:[id number] END OF [id number] 11:44:00 [facility] ([facility]) Pharmacy Prog.Note-Vancomycin REPORT#:[id number] REPORT STATUS: Signed REPORT INITIALIZATION DATE:03/14/24 TIME: 114 PATIENT: TSERING BRAUN UNIT #: [id number] ROOM/BED: [place] [id number] : 71 AGE: 54 SEX: F ATTEND: Indy Toussaint MD ADM AUTHOR: Elissa Wilson [facility] REPT SERVICE DT/TIME: 03/14/24 1144 * ALL edits or amendments must be made on the electronic/computer document * Vancomycin Vancomycin Medication Therapy Goal: trough 10-15 mcg/mL Current therapy: Medication(s) Ordered: 08:00 Sig/Jovi Start time Last Medication Dose Route Stop Time Status Admin Miscellaneous 1 EACH ASDIR 03/13 0015 CKD Information IV 03/20 2359 Anti-Infective Agents Sig/Jovi Start time Last Medication Dose Route Stop Time Status Admin Vancomycin HCl 1,000 MG BID@0200,1400 03/14 1400 AC Sodium Chloride 250 ML IV 03/19 0329 Piperacillin Sod/ 3.375 GM 0200,1000,1800 03/13 1000 AC 03/14 Tazobactam Sod IV 03/20 0559 0932 Sodium Chloride 100 ML Vancomycin HCl 1,000 MG Q24H 03/13 0200 DC 03/14 Sodium Chloride 250 ML IV 03/19 0329 0132 Labs: Laboratory Test : 03/14 03/13 03/13 03/13 03/13 0213 1150 0755 0647 0559 Chemistry BUN (6 - 20 MG/DL) 11 12 15 16 Creatinine (0.60 - 1.00 MG/DL) 0.74 0.87 0.90 0.90 Hematology WBC (4.80 - 10.80 x10 3/uL) 16.50 H 15.59 H 03/12 03/12 2314 1941 Chemistry BUN (6 - 20 MG/DL) 19 24 H Creatinine (0.60 - 1.00 MG/DL) 0.92 1.22 H Hematology WBC (4.80 - 10.80 x10 3/uL) 17.42 H Microbiology: 03/13 220 NARES-MRSA: MRSA Screen - COMP 03/13 200 URINE: Urine Culture - RES STAPHYLOCOCCUS AUREUS 03/13 24 FOOT: Wound Culture - CAN Cancelled: Cancelled via OE: Physician Decision 03/13 24 FOOT: Gram Stain - CAN Cancelled: Cancelled via OE: Physician Decision 03/12 1949 BLOOD: Blood Culture - RES 03/12 1941 BLOOD: Blood Culture - RES Treatment plan: consult Rationale: 03/14 Day #2 of 7 PMH/CC/Indication: Right Foot Cellulitis and Adductor Longus Abscess. No evidence of osteomyelitis. Age/Sex: 54/F Ht/Wt: 5'8''/68 KG sCr/CrCl: 0.74/94 WBC/Tmax: 16.50/103.1 Current Dose/Frequency/Times: 1000 MG Q24H @02:00 Last Level Date/Time: N/A Goal: AUC/RAMAKRISHNA: 400 600 mcg*hr/ml; Trough 10-15 mcg/mL New Dose/Frequency/Times: 1000 MG Q12H @ (Est AUC 407) Next Level Date/Time: 03/15 @13:00 (before 4th dose of new regimen) Other ABX: ZOSYN Notes: SCR improving, so regimen changed to Q12H (SCR 1.22 -> 0.74) Additional Comments: Thank you for this consult. at 1146 RPT #:[id number] END OF [id number] 08:39:00 [facility] ([facility]) Critical Care Progress Note REPORT#:[id number] REPORT STATUS: Signed REPORT INITIALIZATION DATE:03/14/24 TIME: 838 PATIENT: TSERING BRAUN UNIT #: [id number] ROOM/BED: [facility]31-1 : 71 AGE: 54 SEX: F ATTEND: Wood Castro MD ADM AUTHOR: Allison Meredith DO REPT SERVICE DT/TIME: 03/14/24 0839 * ALL edits or amendments must be made on the electronic/computer document * Subjective Chief complaint: right foot pain HPI: Patient seen and examined at bedside. No acute events overnight. Was transferred from the ICU last night. Laying in bed appears comfortable. Review of Systems Musculoskeletal: Extremity pain: Reports: right lower. Free Text ROS Notes Free Text ROS Notes: 14 point ROS completed and negative unless noted otherwise Objective General VS/I O Last Documented: Result Date Time Pulse Ox 97 03/14 08 B/P 104/70 03/14 08 B/P Mean 81.2 03/14 08 O2 Delivery Room air 03/14 804 Temp 98.2 03/14 08 Pulse 102 03/14 08 Resp 15 03/14 08 24 hour I O ending at 0700: 03/14 0700 03/13 1900 Intake Total 650.00 Output Total Balance 650.00 Intake, IV 410.00 Intake, Oral 240 Number 1 Bowel Movements Number Voids 2 Patient 149 lb Weight PATIENT WEIGHT: Weight (lb): 149 Weight (oz): 4.05 Weight (kg): 67.585 Medications: Active Meds + DC'd Last 24 Hrs Potassium Chloride (K-DUR) 60 MEQ ONCE ONE PO (DC) Acetaminophen (TYLENOL 325MG TABLET) 0 .STK-MED ONE .ROUTE (DCr) Insulin Glargine (Lantus/Semglee) 10 UNIT Q12HR SUBQ Lactated Ringer's (LACTATED RINGERS 1000ML) 1,000 ML .Q10H IV (r) Insulin Human Lispro (HumaLOG) 4 UNIT TID MEALS SUBQ Hydrocodone Bitart/Acetaminophen (NORCO 5-325 TABLET) 1 TAB Q4H PRN PRN PO Morphine Sulfate (morphine SULFATE) 2 MG Q4H PRN PRN IV Insulin Human Lispro (HumaLOG) AGGRESSIVE SLIDING SCALE (steroids, infection, resistant) AC HS 0200 SUBQ Dextrose (GLUCOSE) 16 GM ASDIR PRN PO Dextrose/Water (DEXTROSE 50% 50ML SYRINGE) 12.5 GM ASDIR PRN IV Insulin Human Lispro (HumaLOG) MODERATE SLIDING SCALE INSULIN AC HS SUBQ (DC) Piperacillin Sod/Tazobactam Sod (ZOSYN 3.375 GM VIAL) 3.375 GM 0200,1000, 1800 IV Sodium Chloride (NORMAL SALINE 100ML IV MINI BAG) 100 ML Dextrose (GLUCOSE) 16 GM ASDIR PRN PO (DC) Dextrose/Water (DEXTROSE 50% 50ML SYRINGE) 12.5 GM ASDIR PRN IV (DC) Famotidine (PEPCID 20MG TABLET) 20 MG DAILY PO Mupirocin (BACTROBAN 2% OINTMENT 22 GMS) 1 APPL BID NASAL Potassium Bicarbonate/Citric Acid (Effer-K 20 Meq Tablet Eff) 40 MEQ Q4H PO (DC) Dextrose/Lactated Ringer's (DEXTROSE 5%-LACTATED RINGERS 1000 ML) 1,000 ML .Q6H40M IV (DC) Vancomycin HCl (VANCOCIN HCL 1000MG VIAL) 1,000 MG Q24H IV Sodium Chloride (NORMAL SALINE 250ML IV BAG) 250 ML Miscellaneous Information (VANCOMYCIN PHARMACY TO DOSE) 1 EACH ASDIR IV (CKD) Dextrose (GLUCOSE) 16 GM ASDIR PRN PO (DC) Dextrose/Water (DEXTROSE 50% 50ML SYRINGE) 12.5 GM ASDIR PRN IV (DC) Insulin Human Regular (Myxredlin 100 units/100 mL Bag) 100 ML TITRATE IV (DC) Ondansetron HCl (ZOFRAN 4 MG/2 ML) 4 MG Q4H PRN PRN IV Sodium Chloride (NORMAL SALINE 250ML IV BAG) 250 ML ASDIR PRN IV Physical Exam General appearance: chronically ill appearing, alert, awake, oriented, no acute distress, pleasant, conversational, mental status normal, no respiratory distress Head/eyes: atraumatic, clear cornea, PERRLA ENT: dry mucosal membrane, poor dentition Neck: full range of motion, non-tender, no JVD, no masses or swelling Cardiovascular: normal capillary refill, normal heart sounds, regular rate and rhythm, normal S1/S2, no ectopy Respiratory: aerating well, clear to auscultation, symmetric expansion, no distress Abdomen: soft, non-tender Genitourinary: no bladder distention, no flank pain, no urinary catheter Extremities: edema (to RLE), moves all, normal capillary refill, normal range of motion, no calf tenderness, no clubbing, no cyanosis Musculoskeletal normal inspection, painless range of motion Neuro/GATE SUPERVISOR: alert, oriented X 3, normal speech, reflexes equal bilat, no motor deficits, no sensory deficits Skin: abscess (to right foot), dry, intact, normal color, normal temperature, no rash Wound/incision: Location: right foot blister Site condition: no drainage Psychiatry: normal affect, normal judgment/insight, normal mood, not homicidal, not suicidal, no hallucinations Results Findings/data: Laboratory Tests 03/15 03/15 03/15 03/15 03/15 1500 1046 0528 0215 0205 Chemistry Sodium (133 - 145 MMOL/L) 138 Potassium (3.6 - 5.2 MMOL/L) 3.6 Chloride (100 - 108 MMOL/L) 101 Carbon Dioxide (22 - 32 MMOL/L) 32 BUN (6 - 20 MG/DL) 6 Creatinine (0.60 - 1.00 MG/DL) 0.57 L Estimated GFR (MDRD) (51 - 120) 109 Glucose (65 - 99 MG/DL) 136 H POC Glucose (65 - 99 MG/DL) 215 H 224 H 143 H 134 H Calcium (8.7 - 10.5 MG/DL) 8.4 L Phosphorus (2.5 - 4.9 MG/DL) 3.0 Magnesium (1.8 - 2.4 MG/DL) 2.1 Total Bilirubin (0.0 - 1.0 MG/DL) 0.4 AST (15 - 37 Units/L) 15 ALT (30 - 65 Units/L) 8 L Alkaline Phosphatase (50 - 136 85 Units/L) Total Protein (6.4 - 8.2 G/DL) 7.2 Albumin (3.4 - 5.0 G/DL) 1.7 L Globulin (1.5 - 3.8 G/DL) 5.5 H Albumin/Globulin Ratio (1.1 - 2.2) 0.3 L 03/14 1950 Chemistry POC Glucose (65 - 99 MG/DL) 123 H Laboratory Tests 03/15 0205 Coagulation PT (9.6 - 12.3 SECONDS) 15.2 H INR 1.32 APTT (22.5 - 35.3 SECONDS) 48.7 H Laboratory Tests 03/15 0205 Hematology WBC (4.80 - 10.80 x10 3/uL) 15.52 H RBC (4.2 - 5.4 x10 6/uL) 3.62 L Hgb (12.0 - 16.0 G/DL) 10.4 L Hct (37 - 47 %) 32.0 L MCV (81 - 99 FL) 88.4 MCH (27 - 31 PG) 28.7 MCHC (33 - 37 G/DL) 32.5 L RDW Coeff of Rupert (11.5 - 14.5 %) 12.5 Plt Count (150 - 450 x10 3/uL) 348 MPV (7.4 - 10.4 FL) 8.9 Neut % (Auto) (42 - 86 %) 78.8 Lymph % (Auto) (24 - 44 %) 13.0 L [place] % (Auto) (0.0 - 4.0 %) 6.8 H Eos % (Auto) (0.0 - 2.7 %) 0.1 Baso % (Auto) (0.0 - 0.5 %) 0.3 Eos # (Auto) (0.0 - 0.5 x10 3/uL) 0.02 Baso # (Auto) (0.0 - 0.2 x10 3/uL) 0.04 Abs Immat Gran (auto) (0.00 - 0.03 x10 3/uL) 0.15 H Absolute Neuts (auto) (1.8 - 7.7 x10 3/uL) 12.25 H Absolute Lymphs (auto) (1.0 - 4.8 x10 3/uL) 2.01 Absolute Monos (auto) (0.0 - 0.8 x10 3/uL) 1.05 H Absolute Nucleated RBC (0.0 - 0.2 X10 3/uL) 0.0 Immature Gran % (0.0 - 2.0 %) 1.0 Nucleated RBC % (0.0 - 0.0 %) 0.0 Laboratory Tests 03/15 1300 Toxicology Vancomycin Trough (10.0 - 20.0 MCG/ML) < 2.0 L Laboratory Tests 03/15/24 0205: [Embedded Image Not Available] Microbiology: 03/13 220 NARES-MRSA: MRSA Screen - COMP 03/13 200 URINE: Urine Culture - COMP STAPHYLOCOCCUS AUREUS 03/13 24 FOOT: Wound Culture - CAN Cancelled: Cancelled via OE: Physician Decision 03/13 24 FOOT: Gram Stain - CAN Cancelled: Cancelled via OE: Physician Decision 03/12 1949 BLOOD: Blood Culture - RES 03/12 1941 BLOOD: Blood Culture - RES Diagnosis, Assessment Plan Free text A P: Acute renal failure Diabetic ketoacidosis Severe sepsis Right foot abscess Uncontrolled type 2 diabetes Normocytic anemia Hypokalemia Patient's mentation appears to be at baseline, no acute neuroconcerns She is saturating well on room air Hemodynamically stable, will continue to monitor closely Vasopressors as needed to maintain MAP greater than 65 Monitor renal function closely Strict I's and O's Avoid nephrotoxic medications Transitioned to basal bolus regimen Continue with antibiotics as per ID ID is following Tolerating a diet DVT prophylaxis GI prophylaxis CODE STATUS to full code Medical decision making: High complexity Continue assessment prior Consultants: critical/draw bench operator helper at 1830 RPT #:[id number] END OF [id number] 08:34:00 [facility] ([facility]) Infectious Dis. Progress Note REPORT#:[id number] REPORT STATUS: Signed REPORT INITIALIZATION DATE:03/14/24 TIME: 833 PATIENT: TSERING BRAUN UNIT #: [id number] ROOM/BED: [place] [id number] : 71 AGE: 54 SEX: F ATTEND: Garrett Rhodes DO ADM AUTHOR: Maral Patino APRN REPT SERVICE DT/TIME: 03/14/24 0834 * ALL edits or amendments must be made on the electronic/computer document * Subjective HPI: Reason for consultation foot abscess and cellulitis. History of present illness Patient is 54-year-old female present to the hospital complains of pain redness swelling of her right foot with evidence of possible abscess. She did not recall how it started. Patient has foot neuropathy. Temperature was 104. Patient is on currently BKA admitted to the ICU with insulin drip. CT of the right lower extremity revealed 2.3 x 0.8 4.8 cm abscess. Patient is currently on vancomycin and Zosyn. Podiatry consult is currently pending I believe. Review of systems; : patient does not report any headaches or visual disturbances. Rest of the 10 systems are normal or as above. Reviewed all the labs CBC CMP all imaging studies and it systems analyst consultant notes and primary care physician notes. Objective General VS/I O: Vital Signs Date Temp Pulse Resp B/P B/P Mean Pulse Ox FiO2 03/13-03/14 36.7-39.5 91-117 10-22 97-143/52-70 71-93 94-100 Last Documented: Result Date Time Pulse Ox 97 03/14 0804 B/P 104/70 03/14 0804 B/P Mean 81.2 03/14 08 O2 Delivery Room air 03/14 804 Temp 36.8 03/14 08 Pulse 102 03/14 0804 Resp 15 03/14 0804 Vital Signs: Date Time Temp Pulse Resp B/P B/P Pulse O2 O2 Flow FiO2 Mean Ox Delivery Rate 03/14 08 36.8 102 15 104/70 81.2 97 Room air 03/14 0502 37.0 101 16 120/69 85.9 96 Room air 03/13 2309 37.1 94 16 108/67 80.6 94 Room air 03/13 2005 39.5 117 17 118/70 86.5 95 Room air 03/13 1706 117 95 03/13 1523 37.6 115 15 124/56 78.6 98 Room air 03/13 1232 104 10 97/58 73 99 03/13 1200 93 18 143/63 91 100 / 1158 36.7 03/13 1130 97 20 98/52 71 99 /12 1100 92 15 116/60 81 99 /12 1030 98 20 124/66 93 100 06/12 1000 101 22 137/64 89 100 03/13 0930 96 16 122/63 86 99 /12 0900 91 15 117/58 81 98 24 hour I O ending at 0700: 03/14 0700 03/13 1900 Intake Total 650.00 Output Total Balance 650.00 Intake, IV 410.00 Intake, Oral 240 Number 1 Bowel Movements Number Voids 2 Patient 67.585 kg Weight PATIENT WEIGHT: Weight (lb): 149 Weight (oz): 4.05 Weight (kg): 67.585 Medications: Active Meds + DC'd Last 24 Hrs Potassium Chloride (K-DUR) 60 MEQ ONCE ONE PO (DC) Acetaminophen (TYLENOL 325MG TABLET) 0 .STK-MED ONE .ROUTE (DCr) Insulin Glargine (Lantus/Semglee) 10 UNIT Q12HR SUBQ Lactated Ringer's (LACTATED RINGERS 1000ML) 1,000 ML .Q10H IV (r) Insulin Human Lispro (HumaLOG) 4 UNIT TID MEALS SUBQ Hydrocodone Bitart/Acetaminophen (NORCO 5-325 TABLET) 1 TAB Q4H PRN PRN PO Morphine Sulfate (morphine SULFATE) 2 MG Q4H PRN PRN IV Insulin Human Lispro (HumaLOG) AGGRESSIVE SLIDING SCALE (steroids, infection, resistant) AC HS 0200 SUBQ Dextrose (GLUCOSE) 16 GM ASDIR PRN PO Dextrose/Water (DEXTROSE 50% 50ML SYRINGE) 12.5 GM ASDIR PRN IV Insulin Human Lispro (HumaLOG) MODERATE SLIDING SCALE INSULIN AC HS SUBQ (DC) Piperacillin Sod/Tazobactam Sod (ZOSYN 3.375 GM VIAL) 3.375 GM 0200,1000, 1800 IV Sodium Chloride (NORMAL SALINE 100ML IV MINI BAG) 100 ML Dextrose (GLUCOSE) 16 GM ASDIR PRN PO (DC) Dextrose/Water (DEXTROSE 50% 50ML SYRINGE) 12.5 GM ASDIR PRN IV (DC) Famotidine (PEPCID 20MG TABLET) 20 MG DAILY PO Mupirocin (BACTROBAN 2% OINTMENT 22 GMS) 1 APPL BID NASAL Potassium Bicarbonate/Citric Acid (Effer-K 20 Meq Tablet Eff) 40 MEQ Q4H PO (DC) Dextrose/Lactated Ringer's (DEXTROSE 5%-LACTATED RINGERS 1000 ML) 1,000 ML .Q6H40M IV (DC) Vancomycin HCl (VANCOCIN HCL 1000MG VIAL) 1,000 MG Q24H IV Sodium Chloride (NORMAL SALINE 250ML IV BAG) 250 ML Miscellaneous Information (VANCOMYCIN PHARMACY TO DOSE) 1 EACH ASDIR IV (CKD) Dextrose (GLUCOSE) 16 GM ASDIR PRN PO (DC) Dextrose/Water (DEXTROSE 50% 50ML SYRINGE) 12.5 GM ASDIR PRN IV (DC) Insulin Human Regular (Myxredlin 100 units/100 mL Bag) 100 ML TITRATE IV (DC) Ondansetron HCl (ZOFRAN 4 MG/2 ML) 4 MG Q4H PRN PRN IV Sodium Chloride (NORMAL SALINE 250ML IV BAG) 250 ML ASDIR PRN IV Physical Exam General appearance: alert, awake, oriented, no acute distress Wound/incision: Location: R foot Site condition: dressing clean dry, dressing intact Cardiovascular: normal heart sounds Respiratory: aerating well, symmetric expansion, no distress Abdomen: non-tender, soft Genitourinary: no urinary catheter Extremities: moves all Neuro/GATE SUPERVISOR: alert, oriented X 3 Skin: no rash Results Findings/Data: Laboratory Tests 03/14 0203 2043 1523 Chemistry Sodium (133 - 145 MMOL/L) 137 Potassium (3.6 - 5.2 MMOL/L) 3.5 L Chloride (100 - 108 MMOL/L) 102 Carbon Dioxide (22 - 32 MMOL/L) 26 BUN (6 - 20 MG/DL) 11 Creatinine (0.60 - 1.00 MG/DL) 0.74 Estimated GFR (MDRD) (51 - 120) 97 Glucose (65 - 99 MG/DL) 195 H POC Glucose (65 - 99 MG/DL) 229 H 194 H 221 H 276 H Calcium (8.7 - 10.5 MG/DL) 8.7 Phosphorus (2.5 - 4.9 MG/DL) 2.8 Magnesium (1.8 - 2.4 MG/DL) 2.1 Total Bilirubin (0.0 - 1.0 MG/DL) 0.5 AST (15 - 37 Units/L) 14 L ALT (30 - 65 Units/L) 11 L Alkaline Phosphatase (50 - 136 84 Units/L) Total Protein (6.4 - 8.2 G/DL) 6.9 Albumin (3.4 - 5.0 G/DL) 1.7 L Globulin (1.5 - 3.8 G/DL) 5.2 H Albumin/Globulin Ratio (1.1 - 2.2) 0.3 L 03/13 03/13 1150 1107 Chemistry Sodium (133 - 145 MMOL/L) 132 L Potassium (3.6 - 5.2 MMOL/L) 4.4 Chloride (100 - 108 MMOL/L) 99 L Carbon Dioxide (22 - 32 MMOL/L) 21 L BUN (6 - 20 MG/DL) 12 Creatinine (0.60 - 1.00 MG/DL) 0.87 Estimated GFR (MDRD) (51 - 120) 80 Glucose (65 - 99 MG/DL) 265 H POC Glucose (65 - 99 MG/DL) 256 H Calcium (8.7 - 10.5 MG/DL) 8.8 Laboratory Tests 03/14 213 Hematology WBC (4.80 - 10.80 x10 3/uL) 16.50 H RBC (4.2 - 5.4 x10 6/uL) 3.84 L Hgb (12.0 - 16.0 G/DL) 10.9 L Hct (37 - 47 %) 32.7 L MCV (81 - 99 FL) 85.2 MCH (27 - 31 PG) 28.4 MCHC (33 - 37 G/DL) 33.3 RDW Coeff of Rupert (11.5 - 14.5 %) 12.2 Plt Count (150 - 450 x10 3/uL) 359 MPV (7.4 - 10.4 FL) 9.0 Neut % (Auto) (42 - 86 %) 77.0 Lymph % (Auto) (24 - 44 %) 13.4 L [place] % (Auto) (0.0 - 4.0 %) 8.0 H Eos % (Auto) (0.0 - 2.7 %) 0.1 Baso % (Auto) (0.0 - 0.5 %) 0.4 Eos # (Auto) (0.0 - 0.5 x10 3/uL) 0.01 Baso # (Auto) (0.0 - 0.2 x10 3/uL) 0.06 Abs Immat Gran (auto) (0.00 - 0.03 x10 3/uL) 0.18 H Absolute Neuts (auto) (1.8 - 7.7 x10 3/uL) 12.72 H Absolute Lymphs (auto) (1.0 - 4.8 x10 3/uL) 2.21 Absolute Monos (auto) (0.0 - 0.8 x10 3/uL) 1.32 H Absolute Nucleated RBC (0.0 - 0.2 X10 3/uL) 0.0 Immature Gran % (0.0 - 2.0 %) 1.1 Nucleated RBC % (0.0 - 0.0 %) 0.0 Diagnosis, Assessment Plan Free Text A P: Assessment Patient is 54-year-old female present to the hospital complains of pain redness swelling of her right foot with evidence of possible abscess. She did not recall how it started. Patient has foot neuropathy. Temperature was 104. Patient is on currently BKA admitted to the ICU with insulin drip. CT of the right lower extremity revealed 2.3 x 0.8 4.8 cm abscess. Patient is currently on vancomycin and Zosyn. Podiatry consult is currently pending I believe. Plan At this time continue with IV vancomycin and Zosyn. Podiatry consultation for possible abscess drainage. Will follow and make further recommendations based on culture results. Thank you for the consultation. 03/14/24 transferred to [facility] floor 03/13 febrile Tmax 103.1; will continue to follow temperature curve with leukocytosis of 16k; will follow on room air; no acute distress noted reports she believes blister ruptured; dressing to R foot c,d,i - wound care notified reports pain to R foot controlled at this time blood cultures 03/12 negative so far; will follow urine cultures 03/13 Staph aureus will change antibiotic to IV Cefazolin monitor for antibiotic related adverse effects pending transfer to [facility] for podiatry evaluation will continue to follow clinically Recommendations per Dr Burks Consultants: critical/draw bench operator helper at 1312 at 9996 RPT #:[id number] END OF [id number] 06:51:00 [facility] ([facility]) Hospitalist Progress Note REPORT#:[id number] REPORT STATUS: Signed REPORT INITIALIZATION DATE:03/14/24 TIME: 650 PATIENT: TSERING BRAUN UNIT #: [id number] ROOM/BED: [place] [address] : 72 AGE: 54 SEX: F ATTEND: Indy Toussaint MD ADM AUTHOR: Cris Torres DO R1 REPT SERVICE DT/TIME: 03/14/24 0651 * ALL edits or amendments must be made on the electronic/computer document * See Addendum Cris Torres 03/14/24 0651: Subjective Chief complaint: Right foot pain HPI: 03/14/24 Patient seen today at bedside. No acute overnight events. Patient reports continued right foot pain. Denies fever, chills, chest pain, abdominal pain or dysuria. Review of Systems Free Text ROS Notes Free Text ROS Notes: Negative except for pertinent positives noted in HPI. Objective General VS/I O: Vital Signs: Date Time Temp Pulse Resp B/P B/P Pulse O2 O2 Flow FiO2 Mean Ox Delivery Rate 03/14 0804 98.2 102 15 104/70 81.2 97 Room air 03/14 0502 98.6 101 16 120/69 85.9 96 Room air 03/13 2309 98.8 94 16 108/67 80.6 94 Room air 03/13 2005 103.1 117 17 118/70 86.5 95 Room air 03/13 1706 117 95 03/13 1523 99.7 115 15 124/56 78.6 98 Room air 03/13 1232 104 10 97/58 73 99 03/13 1200 93 18 143/63 91 100 03/13 1158 98.0 24 hour I O ending at 0700: 03/14 0700 03/13 1900 Intake Total 650.00 Output Total Balance 650.00 Intake, IV 410.00 Intake, Oral 240 Number 1 Bowel Movements Number Voids 2 Patient 67.585 kg Weight PATIENT WEIGHT: Weight (lb): 149 Weight (oz): 4.05 Weight (kg): 67.585 Results Findings/Data: Laboratory Tests 03/14 03/14 03/14 03/13 03/13 0613 0213 0203 2043 1523 Chemistry Sodium (133 - 145 MMOL/L) 137 Potassium (3.6 - 5.2 MMOL/L) 3.5 L Chloride (100 - 108 MMOL/L) 102 Carbon Dioxide (22 - 32 MMOL/L) 26 BUN (6 - 20 MG/DL) 11 Creatinine (0.60 - 1.00 MG/DL) 0.74 Estimated GFR (MDRD) (51 - 120) 97 Glucose (65 - 99 MG/DL) 195 H POC Glucose (65 - 99 MG/DL) 229 H 194 H 221 H 276 H Calcium (8.7 - 10.5 MG/DL) 8.7 Phosphorus (2.5 - 4.9 MG/DL) 2.8 Magnesium (1.8 - 2.4 MG/DL) 2.1 Total Bilirubin (0.0 - 1.0 MG/DL) 0.5 AST (15 - 37 Units/L) 14 L ALT (30 - 65 Units/L) 11 L Alkaline Phosphatase (50 - 136 Units/L) 84 Total Protein (6.4 - 8.2 G/DL) 6.9 Albumin (3.4 - 5.0 G/DL) 1.7 L Globulin (1.5 - 3.8 G/DL) 5.2 H Albumin/Globulin Ratio (1.1 - 2.2) 0.3 L 03/13 1150 Chemistry Sodium (133 - 145 MMOL/L) 132 L Potassium (3.6 - 5.2 MMOL/L) 4.4 Chloride (100 - 108 MMOL/L) 99 L Carbon Dioxide (22 - 32 MMOL/L) 21 L BUN (6 - 20 MG/DL) 12 Creatinine (0.60 - 1.00 MG/DL) 0.87 Estimated GFR (MDRD) (51 - 120) 80 Glucose (65 - 99 MG/DL) 265 H Calcium (8.7 - 10.5 MG/DL) 8.8 Laboratory Tests 03/14 0213 Hematology WBC (4.80 - 10.80 x10 3/uL) 16.50 H RBC (4.2 - 5.4 x10 6/uL) 3.84 L Hgb (12.0 - 16.0 G/DL) 10.9 L Hct (37 - 47 %) 32.7 L MCV (81 - 99 FL) 85.2 MCH (27 - 31 PG) 28.4 MCHC (33 - 37 G/DL) 33.3 RDW Coeff of Rupert (11.5 - 14.5 %) 12.2 Plt Count (150 - 450 x10 3/uL) 359 MPV (7.4 - 10.4 FL) 9.0 Neut % (Auto) (42 - 86 %) 77.0 Lymph % (Auto) (24 - 44 %) 13.4 L [place] % (Auto) (0.0 - 4.0 %) 8.0 H Eos % (Auto) (0.0 - 2.7 %) 0.1 Baso % (Auto) (0.0 - 0.5 %) 0.4 Eos # (Auto) (0.0 - 0.5 x10 3/uL) 0.01 Baso # (Auto) (0.0 - 0.2 x10 3/uL) 0.06 Abs Immat Gran (auto) (0.00 - 0.03 x10 3/uL) 0.18 H Absolute Neuts (auto) (1.8 - 7.7 x10 3/uL) 12.72 H Absolute Lymphs (auto) (1.0 - 4.8 x10 3/uL) 2.21 Absolute Monos (auto) (0.0 - 0.8 x10 3/uL) 1.32 H Absolute Nucleated RBC (0.0 - 0.2 X10 3/uL) 0.0 Immature Gran % (0.0 - 2.0 %) 1.1 Nucleated RBC % (0.0 - 0.0 %) 0.0 Free Text Obj Notes Free Text Obj Notes: Head/eyes: atraumatic, clear cornea, PERRLA ENT: dry mucosal membrane, poor dentition Neck: full range of motion, non-tender, no JVD, no masses or swelling Cardiovascular: normal capillary refill, normal heart sounds, regular rate and rhythm, normal S1/S2, no ectopy Respiratory: aerating well, clear to auscultation, symmetric expansion, no distress Abdomen: soft, non-tender Genitourinary: no bladder distention, no flank pain, no urinary catheter Extremities: edema (to RLE), moves all, normal capillary refill, normal range of motion, no calf tenderness, no clubbing, no cyanosis Musculoskeletal normal inspection, painless range of motion Neuro/GATE SUPERVISOR: alert, oriented X 3, normal speech, reflexes equal bilat, no motor deficits, no sensory deficits Skin: abscess (to right foot), warm Wound/incision: Location: right foot blister Site condition: no drainage Psychiatry: normal affect, normal judgment/insight, normal mood, not homicidal, not suicidal, no hallucinations Diagnosis, Assessment Plan Consultants: critical/draw bench operator helper Free Text DxA P Notes Free text DxA P notes: Assessment: Right Foot Cellulitis and Abductor Longus Abscess * CT extr showed: 2.3 x 0.8 x 0.8 cm abscess within the proximal abductor hallucis muscle in keeping with an abscess. Edema and phlegmon is seen within the adductor hallucis muscle without abscess. Diabetic ketoacidosis, now resolved Insulin-dependent type 2 diabetes mellitus with severe hyperglycemia Hypokalemia HTN HLD Plan: Podiatry consulted, appreciate recommendations Infectious disease consulted, appreciate recommendations IR consulted for abscess drainage Continue Vanc Zosyn Insulin drip discontinued, continue agressive SSI, Lantus 15 unit Q12 Home meds reconciled, continue as indicated Monitor electrolytes, replete as indicated Daily Labs CBC CMP PT eval treat Wound care eval and treat Code Status: Full Code Diet: Diabetic VTE ppx: SCDs Dispo: Pending transfer to [facility] for further evaluation by Dr. Mott podiatry Indy Toussaint 03/14/24 1634: Attestations Attestation needed: teaching physician Teaching Physician Attestation 1st visit w/o resident: I performed a history and physical examination of the patient and discussed with the resident. I have reviewed the resident's note and agree with the findings and plan as documented in the resident's note. Patient seen and examined bedside. Labs and chart reviewed. No acute overnight events. Hemodynamically stable. Afebrile. On room air. Patient is awake alert oriented x3. No apparent distress. Denies any new complaints at this time. Comfortably lying in the bed. DKA resolved. Continues to be hyperglycemic. Increase Lantus to 50 units twice daily. Continue scheduled Humalog 5 units with meals and aggressive ICS. Hypoglycemia protocol. ADA diet. Diabetic education. Continue empiric IV Ancef 2 g every 8 hours per ID. Consulted Dr. Mott with podiatry. He recommended to transfer the patient to [facility] for him to evaluate. Contacted and discussed with Dr. Feli Woods who accepted the patient to [facility]. Disposition: Patient is being transferred to [facility] today in stable condition. Discussed with the patient in detail and answered all her questions to her satisfaction. Patient understanding and is agreeable with above plan. Medical decision making: High complexity. at 1139 at 1637 Addendum 1: 03/14/24 1638 by Indy Toussaint MD Prolonged care time: Greater than 30 minutes. at 1639 RPT #:[id number] END OF [id number] 15:35:00 [facility] ([facility]) Clinical Note REPORT#:[id number] REPORT STATUS: Signed REPORT INITIALIZATION DATE:03/13/24 TIME: 1535 PATIENT: TSERING BRAUN UNIT #: [id number] ROOM/BED: D331-1 : 71 AGE: 54 SEX: F ATTEND: Indy Toussaint MD ADM AUTHOR: Cris Torres REPT SERVICE DT/TIME: 03/13/24 1535 * ALL edits or amendments must be made on the electronic/computer document * Cris Torres 03/13/24 1535: Clinical Note Note: Patient seen and examined after being dropped down from ICU. Patient reports moderate right foot pain. Otherwise no other complaints. Continue current management. at 1756 at 1634 RPT #:[id number] END OF [id number] 12:45:00 [facility] ([facility]) Infect Disease Consult Note REPORT#:[id number] REPORT STATUS: Signed REPORT INITIALIZATION DATE:03/13/24 TIME: 1245 PATIENT: TSERING BRAUN UNIT #: [id number] ROOM/BED: D331-1 : 71 AGE: 54 SEX: F ATTEND: Garrett Rhodes DO ADM AUTHOR: Maral Patino APRN REPT SERVICE DT/TIME: 03/13/24 1245 * ALL edits or amendments must be made on the electronic/computer document * Maral Patino 03/13/24 1245: History of Present Illness HPI: Reviewed history with Dr Burks; full note to follow. History - Adult longitudinal Past medical history: Reports: Diabetes mellitus, Hypertension, Dyslipidemia, Ischemic stroke. Past surgical history: Reports: . Family history: Reports: Diabetes, Heart disease. Alcohol use: Denies EtOH use Drug use: Denies recreational drugs Smoking status for patients 13 years old or older: Former Smoker Date last smoked: 03/18/13 Allergies: Coded Allergies: No Known Allergies (05/28/13) Ambulatory status: Independent Objective General VS/I O: Vital Signs Date Temp Pulse Resp B/P B/P Mean Pulse Ox FiO2 /11-03/13 36.2-37.1 84-103 12-21 96-124/52-71 68-91 97-100 Last Documented: Result Date Time Temp 36.7 03/13 1158 Pulse Ox 100 06/ 0630 B/P 103/55 06/12 0630 B/P Mean 73 06/ 0630 Pulse 86 06/ 0630 Resp 15 / 0630 O2 Delivery Room air 03/13 0152 Vital Signs: Date Time Temp Pulse Resp B/P B/P Pulse O2 O2 Flow FiO2 Mean Ox Delivery Rate / 1158 36.7 06/ 0742 36.2 06/ 0630 86 15 103/55 73 100 06/12 0600 84 14 98/57 75 100 06/12 0530 86 16 97/53 70 99 06/12 0500 89 15 107/57 77 98 06/12 0430 91 14 111/57 78 99 06/12 0400 36.8 06/ 0400 93 14 108/60 77 99 06/12 0330 94 12 110/56 77 100 06/12 0300 98 14 116/62 81 100 06/12 0245 96 17 101/59 74 100 06/12 0231 36.9 06/12 0230 93 13 106/56 80 100 06/12 0220 95 12 104/67 80 100 06/12 0211 93 21 105/64 79 99 06/12 0152 37.1 92 18 102/52 68 99 Room air 03/13 0030 91 18 96/56 70 98 06/12 0015 96 18 102/59 75 100 06/ 2330 101 19 113/65 83 98 06/ 2321 36.9 06/ 2319 20 06/ 2315 103 124/71 91 98 03/12 2028 97 03/12 1834 14 Room air 24 hour I O ending at 0700: 03/13 0700 03/12 1900 Intake Total 964.00 Output Total Balance 964.00 Intake, IV 724.00 Intake, Oral 240 Patient 67.7 kg 72.727 kg Weight Weight Bed scale Stated/Reported Measurement Method PATIENT WEIGHT: Weight (lb): 149 Weight (oz): 4.05 Weight (kg): 67.700 Physical Exam General appearance: alert, awake, oriented, no acute distress Cardiovascular: normal heart sounds Respiratory: aerating well, symmetric expansion, no distress Abdomen: non-tender, soft Extremities: moves all Neuro/GATE SUPERVISOR: alert, oriented X 3 Skin: intact blister to lateral aspect of R foot with edema and erythema Diagnosis, Assessment Plan Consultants: critical/draw bench operator helper Miladis Burks 03/13/24 1320: History of Present Illness HPI: Reason for consultation foot abscess and cellulitis. History of present illness Patient is 54-year-old female present to the hospital complains of pain redness swelling of her right foot with evidence of possible abscess. She did not recall how it started. Patient has foot neuropathy. Temperature was 104. Patient is on currently BKA admitted to the ICU with insulin drip. CT of the right lower extremity revealed 2.3 x 0.8 4.8 cm abscess. Patient is currently on vancomycin and Zosyn. Podiatry consult is currently pending I believe. Review of systems; : patient does not report any headaches or visual disturbances. Rest of the 10 systems are normal or as above. Reviewed all the labs CBC CMP all imaging studies and it systems analyst consultant notes and primary care physician notes. Objective General VS/I O: Vital Signs Date Temp Pulse Resp B/P B/P Mean Pulse Ox FiO2 /-03/13 97.1-98.8 84-103 12-21 96-124/52-71 68-91 97-100 Last Documented: Result Date Time Temp 98.0 03/13 1158 Pulse Ox 100 / 0630 B/P 103/55 /12 0630 B/P Mean 73 /12 0630 Pulse 86 / 0630 Resp 15 / 0630 O2 Delivery Room air 03/13 0152 Vital Signs: Date Time Temp Pulse Resp B/P B/P Pulse O2 O2 Flow FiO2 Mean Ox Delivery Rate 03/13 1158 98.0 / 0742 97.1 / 0630 86 15 103/55 73 100 06/12 0600 84 14 98/57 75 100 06/12 0530 86 16 97/53 70 99 06/12 0500 89 15 107/57 77 98 06/12 0430 91 14 111/57 78 99 03/13 0400 98.3 03/13 0400 93 14 108/60 77 99 03/13 0330 94 12 110/56 77 100 03/13 0300 98 14 116/62 81 100 03/13 0245 96 17 101/59 74 100 03/13 0231 98.5 03/13 0230 93 13 106/56 80 100 03/13 0220 95 12 104/67 80 100 03/13 0211 93 21 105/64 79 99 03/13 0152 98.8 92 18 102/52 68 99 Room air 03/13 0030 91 18 96/56 70 98 03/13 0015 96 18 102/59 75 100 03/12 2330 101 19 113/65 83 98 03/12 2321 98.4 03/12 2319 20 03/12 2315 103 124/71 91 98 03/12 2028 97 03/12 1834 14 Room air 24 hour I O ending at 0700: 03/13 0700 03/12 1900 Intake Total 964.00 Output Total Balance 964.00 Intake, IV 724.00 Intake, Oral 240 Patient 67.7 kg 72.727 kg Weight Weight Bed scale Stated/Reported Measurement Method PATIENT WEIGHT: Weight (lb): 149 Weight (oz): 4.05 Weight (kg): 67.700 Physical Exam General appearance: alert Free Text Obj Notes Free Text Obj Notes: Patient was seen and evaluated along with nurse practitioner during telemedicine visit and appropriate treatment plan was discussed thoroughly. All films were reviewed along with old and current medical records were reviewed. Discussed with family/caregiver in detail about treatment plans prognosis and regarding patient's wishes. All questions answered to their satisfaction. At total of 37 minutes was spent on this visit reviewing previous notes and previous biopsies, performing a medically appropriate examination and evaluation , documenting clinical information in the health record. Counseling and educating the patient on diagnostic laboratory results, impressions, recommended diagnostic studies, prognosis, risks and benefits of management, importance of compliance, risk factor reduction. Diagnosis, Assessment Plan Free Text DxA P Notes Free text DxA P notes: Assessment Patient is 54-year-old female present to the hospital complains of pain redness swelling of her right foot with evidence of possible abscess. She did not recall how it started. Patient has foot neuropathy. Temperature was 104. Patient is on currently BKA admitted to the ICU with insulin drip. CT of the right lower extremity revealed 2.3 x 0.8 4.8 cm abscess. Patient is currently on vancomycin and Zosyn. Podiatry consult is currently pending I believe. Plan At this time continue with IV vancomycin and Zosyn. Podiatry consultation for possible abscess drainage. Will follow and make further recommendations based on culture results. Thank you for the consultation. at 1617 at 3653 RPT #:[id number] END OF [id number] 07:28:00 [facility] ([facility]) Critical Care Progress Note REPORT#:[id number] REPORT STATUS: Signed REPORT INITIALIZATION DATE:03/13/24 TIME: 727 PATIENT: TSERING BRAUN UNIT #: [id number] ROOM/BED: [place] [id number] : 71 AGE: 54 SEX: F ATTEND: Indy Toussaint MD ADM AUTHOR: MASOUD BOWMAN DO R1 REPT SERVICE DT/TIME: 03/13/24727 * ALL edits or amendments must be made on the electronic/computer document * MASOUD BOWMAN 03/13/2428: Subjective Chief complaint: right foot pain HPI: Patient seen and examined at bedside. No acute events overnight. Anion gap normal x2. Patient denies diaphoresis, n/v. Reports feeling hungry. Denies fevers and chills, continues to have right foot burning pain and swelling. Potassium repleted. Review of Systems Free Text ROS Notes Free Text ROS Notes: A full review of systems was performed and is negative except as documented in the HPI. Objective General VS/I O Last Documented: Result Date Time Pulse Ox 95 03/13 1706 Pulse 117 03/13 1706 B/P 124/56 03/13 1523 B/P Mean 78.6 03/13 1523 O2 Delivery Room air 03/13 1523 Temp 99.7 03/13 1523 Resp 15 03/13 1523 24 hour I O ending at 0700: 06/12 0700 06/11 1900 Intake Total 964.00 Output Total Balance 964.00 Intake, IV 724.00 Intake, Oral 240 Patient 67.7 kg 72.727 kg Weight Weight Bed scale Stated/Reported Measurement Method PATIENT WEIGHT: Weight (lb): 149 Weight (oz): 4.05 Weight (kg): 67.585 Medications: Active Meds + DC'd Last 24 Hrs Insulin Glargine (Lantus/Semglee) 10 UNIT Q12HR SUBQ Insulin Human Lispro (HumaLOG) 4 UNIT TID MEALS SUBQ Hydrocodone Bitart/Acetaminophen (NORCO 5-325 TABLET) 1 TAB Q4H PRN PRN PO (UNV) Morphine Sulfate (morphine SULFATE) 2 MG Q4H PRN PRN IV (UNVr) Insulin Human Lispro (HumaLOG) AGGRESSIVE SLIDING SCALE (steroids, infection, resistant) AC HS 0200 SUBQ Dextrose (GLUCOSE) 16 GM ASDIR PRN PO Dextrose/Water (DEXTROSE 50% 50ML SYRINGE) 12.5 GM ASDIR PRN IV Insulin Human Lispro (HumaLOG) MODERATE SLIDING SCALE INSULIN AC HS SUBQ (DC) Piperacillin Sod/Tazobactam Sod (ZOSYN 3.375 GM VIAL) 3.375 GM 0200,1000, 1800 IV Sodium Chloride (NORMAL SALINE 100ML IV MINI BAG) 100 ML Dextrose (GLUCOSE) 16 GM ASDIR PRN PO (DC) Dextrose/Water (DEXTROSE 50% 50ML SYRINGE) 12.5 GM ASDIR PRN IV (DC) Famotidine (PEPCID 20MG TABLET) 20 MG DAILY PO Mupirocin (BACTROBAN 2% OINTMENT 22 GMS) 1 APPL BID NASAL Insulin Glargine (Lantus/Semglee) 10 UNIT NOW ONE SUBQ (DC) Potassium Bicarbonate/Citric Acid (Effer-K 20 Meq Tablet Eff) 40 MEQ Q4H PO (DC) Dextrose/Lactated Ringer's (DEXTROSE 5%-LACTATED RINGERS 1000 ML) 1,000 ML .Q6H40M IV (DC) Lactated Ringer's (LACTATED RINGERS 1000ML) 1,000 ML .Q6H40M IV (DC) Piperacillin Sod/Tazobactam Sod (ZOSYN 3.375 GM VIAL) 3.375 GM 0200,1000, 1800 IV (DC) Sodium Chloride (NORMAL SALINE 100ML IV MINI BAG) 100 ML Vancomycin HCl (VANCOCIN HCL 1000MG VIAL) 1,000 MG Q24H IV Sodium Chloride (NORMAL SALINE 250ML IV BAG) 250 ML Iopamidol (Isovue-300) 0 .STK-MED ONE IV (DC) Miscellaneous Information (VANCOMYCIN PHARMACY TO DOSE) 1 EACH ASDIR IV (CKD) Dextrose (GLUCOSE) 16 GM ASDIR PRN PO (DC) Dextrose/Water (DEXTROSE 50% 50ML SYRINGE) 12.5 GM ASDIR PRN IV (DC) Insulin Human Regular (Myxredlin 100 units/100 mL Bag) 100 ML TITRATE IV (DC) Ondansetron HCl (ZOFRAN 4 MG/2 ML) 4 MG Q4H PRN PRN IV Sodium Chloride (NORMAL SALINE 250ML IV BAG) 250 ML ASDIR PRN IV Morphine Sulfate (morphine SULFATE) 4 MG X1ED STA IV (DC) Ondansetron HCl (ZOFRAN 4 MG/2 ML) 4 MG X1ED STA IV (DC) Insulin Human Regular (HumuLIN R) 5 UNIT X1ED STA IV (DC) Piperacillin Sod/Tazobactam Sod (ZOSYN 3.375 GM VIAL) 3.375 GM X1ED STA IV (DC) Sodium Chloride (NORMAL SALINE 100ML IV MINI BAG) 100 ML Sodium Chloride (SODIUM CHLORIDE 0.9%) 2,000 ML X1ED STA IV (DC) Physical Exam Head/eyes: atraumatic, clear cornea, PERRLA ENT: dry mucosal membrane, poor dentition Neck: full range of motion, non-tender, no JVD, no masses or swelling Cardiovascular: normal capillary refill, normal heart sounds, regular rate and rhythm, normal S1/S2, no ectopy Respiratory: aerating well, clear to auscultation, symmetric expansion, no distress Abdomen: soft, non-tender Genitourinary: no bladder distention, no flank pain, no urinary catheter Extremities: edema (to RLE), moves all, normal capillary refill, normal range of motion, no calf tenderness, no clubbing, no cyanosis Musculoskeletal normal inspection, painless range of motion Neuro/GATE SUPERVISOR: alert, oriented X 3, normal speech, reflexes equal bilat, no motor deficits, no sensory deficits Skin: abscess (to right foot), dry, intact, normal color, normal temperature, no rash Wound/incision: Location: right foot blister Site condition: no drainage Psychiatry: normal affect, normal judgment/insight, normal mood, not homicidal, not suicidal, no hallucinations Results Findings/data: Laboratory Tests 03/13 0311 Blood Gas Puncture Site OT VBG pH (7.310 - 7.410) 7.310 VBG pCO2 (41.0 - 51.0 mmHg) 34.0 L VBG pO2 (30 - 55 mmHg) 25.8 L VBG HCO3 (22 - 27 mmol/L) 16.7 L VBG Base Excess (-2.0 to +2.0) -8.6 L Oxyhemoglobin (92.0 - 98.0 %) 45.0 L Carboxyhemoglobin (0.5 - 1.5 %) 1.4 Methemoglobin (0.4 - 1.5 %) 0.3 L Total Hemoglobin (12.0 - 16.0 G/DL) 11.7 L Patient On Oxygen Venous Vent Mode RA Laboratory Tests 03/13 03/13 03/13 03/13 03/13 1523 1150 1107 0755 0736 Chemistry Sodium (133 - 145 MMOL/L) 132 L 135 Potassium (3.6 - 5.2 MMOL/L) 4.4 3.0 L Chloride (100 - 108 MMOL/L) 99 L 101 Carbon Dioxide (22 - 32 MMOL/L) 21 L 26 BUN (6 - 20 MG/DL) 12 15 Creatinine (0.60 - 1.00 MG/DL) 0.87 0.90 Estimated GFR (MDRD) (51 - 120) 80 76 Glucose (65 - 99 MG/DL) 265 H 200 H POC Glucose (65 - 99 MG/DL) 276 H 256 H 216 H Calcium (8.7 - 10.5 MG/DL) 8.8 8.8 Phosphorus (2.5 - 4.9 MG/DL) 2.1 L Magnesium (1.8 - 2.4 MG/DL) 2.0 03/13 03/13 03/13 03/13 03/13 0647 0637 0559 0569 4290 Chemistry Sodium (133 - 145 MMOL/L) 135 Potassium (3.6 - 5.2 MMOL/L) 3.1 L Chloride (100 - 108 MMOL/L) 101 Carbon Dioxide (22 - 32 MMOL/L) 22 BUN (6 - 20 MG/DL) 16 Creatinine (0.60 - 1.00 MG/DL) 0.90 Estimated GFR (MDRD) (51 - 120) 76 Glucose (65 - 99 MG/DL) 206 H POC Glucose (65 - 99 MG/DL) 213 H 192 H 178 H Hemoglobin A1c (4.5 - 6.2 % TOT HB) 13.3 H Calcium (8.7 - 10.5 MG/DL) 8.4 L Phosphorus (2.5 - 4.9 MG/DL) 2.2 L Magnesium (1.8 - 2.4 MG/DL) 2.0 Total Bilirubin (0.0 - 1.0 MG/DL) 0.4 AST (15 - 37 Units/L) 11 L ALT (30 - 65 Units/L) 11 L Alkaline Phosphatase (50 - 136 Units/L) 85 Total Protein (6.4 - 8.2 G/DL) 6.5 Albumin (3.4 - 5.0 G/DL) 1.7 L Globulin (1.5 - 3.8 G/DL) 4.8 H Albumin/Globulin Ratio (1.1 - 2.2) 0.4 L TSH (0.42 - 5.47) 0.45 03/13 03/13 03/13 03/12 03/12 0334 0223 0102 2314 2258 Chemistry Sodium (133 - 145 MMOL/L) 134 Potassium (3.6 - 5.2 MMOL/L) 4.5 Chloride (100 - 108 MMOL/L) 102 Carbon Dioxide (22 - 32 MMOL/L) 15 L BUN (6 - 20 MG/DL) 19 Creatinine (0.60 - 1.00 MG/DL) 0.92 Estimated GFR (MDRD) (51 - 120) 74 Glucose (65 - 99 MG/DL) 334 H POC Glucose (65 - 99 MG/DL) 244 H 317 H 333 H Calcium (8.7 - 10.5 MG/DL) 7.6 L Acetone (Negative) Large H 03/12 03/12 03/12 03/12 2220 1941 1941 1838 Chemistry Sodium (133 - 145 MMOL/L) 131 L Potassium (3.6 - 5.2 MMOL/L) 4.2 Chloride (100 - 108 MMOL/L) 92 L Carbon Dioxide (22 - 32 MMOL/L) 19 L BUN (6 - 20 MG/DL) 24 H Creatinine (0.60 - 1.00 MG/DL) 1.22 H Estimated GFR (MDRD) (51 - 120) 53 Glucose (65 - 99 MG/DL) 424 *H POC Glucose (65 - 99 MG/DL) 349 H 411 *H Lactic Acid (0.5 - 2.2 MMOL/L) 1.5 Calcium (8.7 - 10.5 MG/DL) 9.5 Total Bilirubin (0.0 - 1.0 MG/DL) 0.7 Direct Bilirubin (0.0 - 0.3 MG/DL) 0.2 Indirect Bilirubin (0.0 - 0.7 MG/DL) 0.5 AST (15 - 37 Units/L) 14 L ALT (30 - 65 Units/L) 15 L Alkaline Phosphatase (50 - 136 Units/L) 108 Troponin I High Sens (< 51 ng/L) < 4 NT-Pro-B Natriuret Pep (0 - 125 PG/ML) 83 Total Protein (6.4 - 8.2 G/DL) 8.4 H Albumin (3.4 - 5.0 G/DL) 2.3 L Globulin (1.5 - 3.8 G/DL) 6.1 H Albumin/Globulin Ratio (1.1 - 2.2) 0.4 L Lipase (16 - 77 U/L) 23 Laboratory Tests 03/13 03/12 0559 1941 Hematology WBC (4.80 - 10.80 x10 3/uL) 15.59 H 17.42 H RBC (4.2 - 5.4 x10 6/uL) 3.16 L 4.37 Hgb (12.0 - 16.0 G/DL) 9.2 L 12.6 Hct (37 - 47 %) 27.1 L 37.1 MCV (81 - 99 FL) 85.8 84.9 MCH (27 - 31 PG) 29.1 28.8 MCHC (33 - 37 G/DL) 33.9 34.0 RDW Coeff of Rupert (11.5 - 14.5 %) 12.2 12.0 Plt Count (150 - 450 x10 3/uL) 289 388 MPV (7.4 - 10.4 FL) 10.0 9.0 Neut % (Auto) (42 - 86 %) 81.0 87.1 H Lymph % (Auto) (24 - 44 %) 9.4 L 5.5 L [place] % (Auto) (0.0 - 4.0 %) 8.2 H 5.7 H Eos % (Auto) (0.0 - 2.7 %) 0.1 0.0 Baso % (Auto) (0.0 - 0.5 %) 0.3 0.3 Eos # (Auto) (0.0 - 0.5 x10 3/uL) 0.01 0.00 Baso # (Auto) (0.0 - 0.2 x10 3/uL) 0.04 0.05 Abs Immat Gran (auto) (0.00 - 0.03 x10 3/uL) 0.16 H 0.24 H Absolute Neuts (auto) (1.8 - 7.7 x10 3/uL) 12.64 H 15.19 H Absolute Lymphs (auto) (1.0 - 4.8 x10 3/uL) 1.46 0.95 L Absolute Monos (auto) (0.0 - 0.8 x10 3/uL) 1.28 H 0.99 H Absolute Nucleated RBC (0.0 - 0.2 X10 3/uL) 0.0 0.0 Immature Gran % (0.0 - 2.0 %) 1.0 1.4 Nucleated RBC % (0.0 - 0.0 %) 0.0 0.0 Laboratory Tests 03/12 1941 Miscellaneous Miscellaneous Test Called Laboratory Tests 03/13 148 Toxicology Urine Opiates Screen (NEGATIVE) POSITIVE H Ur Barbiturates Screen (NEGATIVE) NEGATIVE Ur Phencyclidine Scrn (NEGATIVE) NEGATIVE Ur Amphetamine Screen (NEGATIVE) NEGATIVE MDMA (NEGATIVE) NEGATIVE U Benzodiazepines Scrn (NEGATIVE) NEGATIVE Urine Cocaine Screen (NEGATIVE) NEGATIVE U Cannabinoids Screen (NEGATIVE) NEGATIVE Laboratory Tests 03/13 148 Urines Ur Spec Description Clean Catch Urine Color (YELLOW) Light-Yellow Urine Appearance (CLEAR) CLEAR Urine pH (5.5 - 7.0) 5.5 Ur Specific [place] (1.001 - 1.035) 1.038 H Urine Protein (NEGATIVE mg/dL) 30 A Urine Glucose (UA) (NEGATIVE mg/dL) > 1000 H Urine Ketones (NEGATIVE mg/dL) > 150 A Urine Blood (NEGATIVE) TRACE Urine Nitrite (NEGATIVE) NEGATIVE Urine Bilirubin (NEGATIVE) NEGATIVE Urine Urobilinogen (NORMAL mg/dL) NORMAL Ur Leukocyte Esterase (NEGATIVE) 250 A Urine RBC (NONE SEEN #/HPF) 0-2 Urine WBC (0 - 10 #/HPF) > 50 H Ur Squamous Epith Cells (<100 #/LPF) 0 - 20 Ur Transition Epith Cell (NONE SEEN #/LPF) RARE Urine Mucus (NONE SEEN #/lpf) RARE Urine Culture Screen Criteria met Urine Comment VOLUME 10-12 ML 03/12 2050 Urines Ur Spec Description Clean Catch Urine Color (YELLOW) Light-Yellow Urine Appearance (CLEAR) Turbid Urine pH (5.5 - 7.0) 5.5 Ur Specific [place] (1.001 - 1.035) 1.032 Urine Protein (NEGATIVE mg/dL) 30 A Urine Glucose (UA) (NEGATIVE mg/dL) > 1000 H Urine Ketones (NEGATIVE mg/dL) > 150 A Urine Blood (NEGATIVE) 1+ A Urine Nitrite (NEGATIVE) NEGATIVE Urine Bilirubin (NEGATIVE) NEGATIVE Urine Urobilinogen (NORMAL mg/dL) NORMAL Ur Leukocyte Esterase (NEGATIVE) 500 A Urine RBC (NONE SEEN #/HPF) 0-2 Urine WBC (0 - 10 #/HPF) > 50 H Ur Squamous Epith Cells (<100 #/LPF) > 100 A Urine Culture Screen Criteria not met Urine Comment VOLUME 10-12 ML Laboratory Tests 03/13/24 1150: [Embedded Image Not Available] 03/13/24 0755: [Embedded Image Not Available] 03/13/24 0647: [Embedded Image Not Available] 03/13/24 0559: [Embedded Image Not Available] 03/12/24 2314: [Embedded Image Not Available] 03/12/24 1941: [Embedded Image Not Available] Microbiology: 03/13 0220 NARES-MRSA: MRSA Screen - RECD 03/13 0200 URINE: Urine Culture - RECD 03/13 24 FOOT: Wound Culture - CAN Cancelled: Cancelled via OE: Physician Decision 03/13 24 FOOT: Gram Stain - CAN Cancelled: Cancelled via OE: Physician Decision 03/12 1949 BLOOD: Blood Culture - RECD 03/12 1941 BLOOD: Blood Culture - RECD Radiology data Recent Impressions: RADIOLOGY - XR FOOT 3+V RT 03/12 185 Report Impression - Status: SIGNED Entered: 03/12/2024 1919 IMPRESSION: Mild soft tissue swelling seen in this patient's right foot. Electronically signed by: Jaxon Michel MD 03/12/2024 07:17 PM CDT RP Impression By: Nayely Michel MD RADIOLOGY - XR CHEST 1 V 03/12 1850 Report Impression - Status: SIGNED Entered: 03/12/2024 192 IMPRESSION: Unremarkable portable examination of the chest. Electronically signed by: Jaxon Michel MD 03/12/2024 07:19 PM CDT RP Impression By: Nayely Michel MD CAT SCAN - CT LOWER EXTRM W/CON RT 03/13 0040 Report Impression - Status: SIGNED Entered: 03/13/2024 0205 IMPRESSION: 1. 2.3 x 0.8 x 0.8 cm abscess within the proximal abductor hallucis muscle in keeping with an abscess. Edema and phlegmon is seen within the adductor hallucis muscle without abscess. 2. No evidence of osteomyelitis. Electronically signed by: Jamal Rebollar MD 03/13/2024 02:02 AM CDT RP Impression By: Martina - Jamal Rebollar MD Diagnosis, Assessment Plan Free text A P: Assessment Right Foot Cellulitis and Adductor Longus Abscess Diabetic ketoacidosis, now resolved Insulin-dependent type 2 diabetes mellitus with severe hyperglycemia Hypertension Hyperlipidemia Plan Patient at baseline mentation with no neurologic symptoms Patient satting well on room air, chest x-ray negative for acute cardiopulmonary pathology Continue telemetry given patient has severe hyperkalemia, in normal sinus rhythm Hemoglobin A1c over 13 indicating very poorly controlled type 2 diabetes melitis Patient had 2 successive normal anion gap, has return of appetite, received 10 units of Lantus, insulin drip discontinued, IV D5/NS discontinued, resume diabetic diet Glucose monitoring for new protocol, Lantus 20 units at bedtime, moderate sliding scale insulin with hypoglycemia protocol Blood cultures x 2 show no growth to date X-ray, CT of right foot reviewed, findings noted Continue vancomycin and Zosyn for empiric treatment of right foot abscess/ cellulitis ID consulted and following, appreciate recs Continue to monitor renal function electrolytes, replace potassium/magnesium as needed VTE PPx: SCD's and hold antiplatelet/anticoagulation for possible procedure Code Status: Full Code Consultants: critical/draw bench operator 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 Allison Meredith 03/13/24 1900: Attestations Teaching Physician Attestation F/U visit w/ resident: I saw the patient with the resident and agree with the resident's findings and plan EXCEPT: 14 point ROS completed and negative unless noted otherwise Acute renal failure Diabetic ketoacidosis Severe sepsis Right foot abscess Uncontrolled type 2 diabetes Normocytic anemia Hypokalemia Patient's mentation appears to be at baseline, no acute neuroconcerns She is saturating well on room air Hemodynamically stable, will continue to monitor closely Vasopressors as needed to maintain MAP greater than 65 Monitor renal function closely Strict I's and O's Avoid nephrotoxic medications Continue with insulin drip Check fingerstick glucose every hour BMP, magnesium, Phos every 4 hours Transition to basal bolus regimen once the gap is closed Will start patient on broad-spectrum empiric antibiotics for the right lower extremity abscess/cellulitis CT of the lower extremity ruled out osteo ID consult Tolerating a diet DVT prophylaxis GI prophylaxis CODE STATUS to full code Prognosis guarded, continue monitor closely. Remains critically ill on insulin drip for diabetic ketoacidosis Total critical care time spent 31 minutes, exclusive of any procedures. Critical care was necessary to treat or prevent imminent or life threatening deterioration of patient's status. at 1815 at 1901 RPT #:[id number] END OF [id number] 00:07:00 [facility] ([facility]) Critical Care H P REPORT#:[id number] REPORT STATUS: Signed REPORT INITIALIZATION DATE:03/13/24 TIME: 6 PATIENT: TSERING BRAUN UNIT #: [id number] ROOM/BED: Y313-1 : 71 AGE: 54 SEX: F ATTEND: Indy Toussaint MD ADM AUTHOR: Nyasia Tang REPT SERVICE DT/TIME: 03/12/24 2330 * ALL edits or amendments must be made on the electronic/computer document * Nyasia Tang 03/13/24 0007: History of Present Illness HPI Chief complaint: right foot pain PCP: PCP: No Primary or Family Physician HPI: Patient is a 54yo female who arrives to [facility] ED with complaints of right foot pain/redness/swelling x 3 days. She endorses associated fever, chills , nausea, and vomiting. Her TMax is reported to be 104.0F. On the medial aspect of her right foot, there is a swollen/erythematous area that is painful to touch. She does not know if she was bit or hit something. She denies any knowledge of how it occured. The pain has gotten progressively worse over the past three days and she came in today after she was unable to bear any weight on that foot. Initial labwork reveals WBC 17.42, Na 131, Cl 92, CO2 19, BUN 24, Cr 1.22, Glucose 424, Lactic Acid 1.5, and Troponin < 4. She was found to have large amounts of acetone in the blood. Her UA reveals a UTI as well as glucose > 1000 and ketones >150. Her anion gap was calculated to be 20. VBG reveals pH 7.310, HCO3 16.7, and BE -8.6. Right foot x-ray reveals mild soft tissue swelling. CT of right lower extremity reveals 2.3 x 0.8 x 0.8 cm abscess within the proximal abductor hallucis muscle in keeping with an abscess and no evidence of osteomyelitis. While in ED, patient received NS bolus x 2L, Zosyn 3.375gm IV x 1, Morphine 4mg IV x 1, Zofran 4mg IV x 1, and was placed on an insulin gtt per protocol. Will admit to ICU for DKA, severe sepsis, and further work-up. PMH includes diabetes, hypertension, and hyperlipidemia. Hx Obtained From Patient, Prior medical records History Past medical history: Reports: Diabetes mellitus, Hypertension, Dyslipidemia, Ischemic stroke. Past surgical history: Reports: . Family history: Reports: Diabetes, Heart disease. Alcohol use: Denies EtOH use Drug use: Denies recreational drugs Smoking status for patients 13 years old or older: Former Smoker Date last smoked: 03/18/13 Medication/Allergy-Vaccine Hx Medications: Home Medications: Medication Dose/Rte/Freq Days Qty Entered Last Max Daily Dose Reviewed IBUPROFEN (MOTRIN) 600 MG PO Q6H PRN 05/22/13 Strength: 600 MG TAB 1134 SULFAMETHOXAZOLE/TMP 1 TAB PO BID 05/31/13 (BACTRIM DS 800/160 MG) 1043 Strength: 1 TAB TAB Hydrocodone/Acetaminophen 1-2 TABS PO Q6HPRN 05/22/13 (HYDROcodone/APAP 1134 7.5/325) Strength: 7.5 MG-325 MG TAB Current Hospital Medications: 08:00 Sig/Jovi Start time Last Medication Dose Route Stop Time Status Admin Miscellaneous 1 EACH ASDIR 03/13 0015 CKD Information IV 03/20 0259 (VANCOMYCIN PHARMACY TO DOSE) Anti-Infective Agents Sig/Jovi Start time Last Medication Dose Route Stop Time Status Admin Piperacillin Sod/ 3.375 GM 0200,1000,1800 03/13 0200 AC Tazobactam Sod IV 03/23 0201 (ZOSYN 3.375 GM VIAL) Sodium Chloride 100 ML (NORMAL SALINE 100ML IV MINI BAG) Vancomycin HCl 1,000 MG Q24H 03/13 0200 AC 03/13 (VANCOCIN HCL 1000MG IV 03/19 0329 0114 VIAL) Sodium Chloride 250 ML (NORMAL SALINE 250ML IV BAG) Piperacillin Sod/ 3.375 GM X1ED STA 03/12 1836 DC 03/12 Tazobactam Sod IV 03/12 1905 1900 (ZOSYN 3.375 GM VIAL) Sodium Chloride 100 ML (NORMAL SALINE 100ML IV MINI BAG) Central Nervous System Agents Sig/Jovi Start time Last Medication Dose Route Stop Time Status Admin Morphine Sulfate 4 MG X1ED STA 03/13 0004 DC 03/13 (morphine SULFATE) IV 03/13 0005 0024 Diagnostic Agents Sig/Jovi Start time Last Medication Dose Route Stop Time Status Admin Iopamidol 0 .STK-MED ONE 03/13 0030 DC 03/13 (Isovue-300) IV 0036 Electrolytic, Caloric, And Tori Sig/Jovi Start time Last Medication Dose Route Stop Time Status Admin Lactated Ringer's 1,000 ML .Q6H40M 03/13 0255 AC 03/13 (LACTATED RINGERS IV 05/12 0256 0255 1000ML) Dextrose 16 GM ASDIR PRN 03/13 0010 AC (GLUCOSE) PO 05/12 0011 Dextrose/Water 12.5 GM ASDIR PRN 03/13 0010 AC (DEXTROSE 50% 50ML IV 05/12 001 SYRINGE) Sodium Chloride 250 ML ASDIR PRN 03/13 0010 AC (NORMAL SALINE 250ML IV 05/12 001 IV BAG) Sodium Chloride 2,000 ML X1ED STA 03/12 1836 DC 03/12 (SODIUM CHLORIDE IV 03/12 1935 1900 0.9%) Gastrointestinal Drugs Sig/Jovi Start time Last Medication Dose Route Stop Time Status Admin Ondansetron HCl 4 MG Q4H PRN PRN 03/13 0010 AC (ZOFRAN 4 MG/2 ML) IV 05/12 0011 Ondansetron HCl 4 MG X1ED STA 03/13 0004 DC 03/13 (ZOFRAN 4 MG/2 ML) IV 03/13 0005 0024 Hormones And Synthetic Substit Sig/Jovi Start time Last Medication Dose Route Stop Time Status Admin Insulin Human Regular 100 ML TITRATE 03/13 0010 CKD 03/13 (Myxredlin 100 units/ IV 05/12 0011 0120 100 mL Bag) Insulin Human Regular 5 UNIT X1ED STA 03/12 2231 DC 03/12 (HumuLIN R) IV 03/12 2232 2257 Skin And Mucous Membrane Agent Sig/Jovi Start time Last Medication Dose Route Stop Time Status Admin Mupirocin 1 APPL BID 03/13 0900 AC (BACTROBAN 2% NASAL 03/17 1801 OINTMENT 22 GMS) Allergies: Coded Allergies: No Known Allergies (05/28/13) Ambulatory status: Independent Review of Systems Constitutional: Reports: chills, fever, generalized weakness. Skin: Denies: diaphoresis. Eyes: Denies: visual loss/blurred. Respiratory: Denies: [place] (dyspnea on exertion), non productive cough, productive cough ( sputum), SOB. Cardiovascular: Reports: edema (to right foot). Denies: chest pain, [place] (dyspnea on exertion). GI: Reports: nausea, vomiting. Denies: abdominal pain. : Denies: dysuria. Musculoskeletal: Extremity pain: Reports: right lower. Neuro: Reports: gait problem (unable to bear wt to R foot), weakness. Denies: confusion, focal weakness, slurred speech, unable to speak. Psych: Denies: homicidal ideation, suicidal ideation. All systems rev neg: except as marked Objective Physical Exam VS/I O: Last Documented: Result Date Time Temp 98.5 03/13 0231 Pulse Ox 99 03/13 0152 B/P 102/52 03/13 0152 B/P Mean 68 03/13 0152 O2 Delivery Room air 03/13 015 Pulse 92 03/13 0152 Resp 18 03/13 0152 24 hour I O ending at 0700: 03/13 0700 03/12 1900 Intake Total Output Total Balance Patient 67.7 kg 72.727 kg Weight Weight Bed scale Stated/Reported Measurement Method Patient Weight and BMI Weight (kg): 67.700 BMI: 22.7 Medications: Active Meds + DC'd Last 24 Hrs Mupirocin (BACTROBAN 2% OINTMENT 22 GMS) 1 APPL BID NASAL Lactated Ringer's (LACTATED RINGERS 1000ML) 1,000 ML .Q6H40M IV Piperacillin Sod/Tazobactam Sod (ZOSYN 3.375 GM VIAL) 3.375 GM 0200,1000, 1800 IV Sodium Chloride (NORMAL SALINE 100ML IV MINI BAG) 100 ML Vancomycin HCl (VANCOCIN HCL 1000MG VIAL) 1,000 MG Q24H IV Sodium Chloride (NORMAL SALINE 250ML IV BAG) 250 ML Iopamidol (Isovue-300) 0 .STK-MED ONE IV (DC) Miscellaneous Information (VANCOMYCIN PHARMACY TO DOSE) 1 EACH ASDIR IV (CKD) Dextrose (GLUCOSE) 16 GM ASDIR PRN PO Dextrose/Water (DEXTROSE 50% 50ML SYRINGE) 12.5 GM ASDIR PRN IV Insulin Human Regular (Myxredlin 100 units/100 mL Bag) 100 ML TITRATE IV (CKD) Ondansetron HCl (ZOFRAN 4 MG/2 ML) 4 MG Q4H PRN PRN IV Sodium Chloride (NORMAL SALINE 250ML IV BAG) 250 ML ASDIR PRN IV Morphine Sulfate (morphine SULFATE) 4 MG X1ED STA IV (DC) Ondansetron HCl (ZOFRAN 4 MG/2 ML) 4 MG X1ED STA IV (DC) Insulin Human Regular (HumuLIN R) 5 UNIT X1ED STA IV (DC) Piperacillin Sod/Tazobactam Sod (ZOSYN 3.375 GM VIAL) 3.375 GM X1ED STA IV (DC) Sodium Chloride (NORMAL SALINE 100ML IV MINI BAG) 100 ML Sodium Chloride (SODIUM CHLORIDE 0.9%) 2,000 ML X1ED STA IV (DC) General appearance: alert, awake, oriented, no acute distress, pleasant, conversational, mental status normal, no respiratory distress Head/Eyes: atraumatic, clear cornea, PERRLA ENT: dry mucosal membrane, poor dentition Neck: full range of motion, non-tender, no JVD, no masses or swelling Cardiovascular: normal capillary refill, normal heart sounds, regular rate and rhythm, normal S1/S2, no ectopy Respiratory: aerating well, clear to auscultation, symmetric expansion, no distress Abdomen: soft, non-tender Genitourinary: no bladder distention, no flank pain, no urinary catheter Extremities: edema (to RLE), moves all, normal capillary refill, normal range of motion, no calf tenderness, no clubbing, no cyanosis Musculoskeletal: normal inspection, painless range of motion Neuro/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 SUPERVISOR: alert, oriented X 3, normal speech, reflexes equal bilat, no motor deficits, no sensory deficits Skin: abscess (to right foot), dry, intact, normal color, normal temperature, no rash Wound/incision: Location: right foot blister Site condition: no drainage Psychiatry: normal affect, normal judgment/insight, normal mood, not homicidal, not suicidal, no hallucinations Results Findings/Data: Laboratory Tests 03/12/242313: [Embedded Image Not Available] 03/12/241940: [Embedded Image Not Available] Laboratory Tests 03/13 03/13 03/12 03/12 03/12 0223 0102 2314 2258 2220 Chemistry Sodium (133 - 145 MMOL/L) 134 Potassium (3.6 - 5.2 MMOL/L) 4.5 Chloride (100 - 108 MMOL/L) 102 Carbon Dioxide (22 - 32 MMOL/L) 15 L BUN (6 - 20 MG/DL) 19 Creatinine (0.60 - 1.00 MG/DL) 0.92 Estimated GFR (MDRD) (51 - 120) 74 Glucose (65 - 99 MG/DL) 334 H POC Glucose (65 - 99 MG/DL) 317 H 333 H 349 H Calcium (8.7 - 10.5 MG/DL) 7.6 L Acetone (Negative) Large H 03/12 Chemistry Sodium (133 - 145 MMOL/L) 131 L Potassium (3.6 - 5.2 MMOL/L) 4.2 Chloride (100 - 108 MMOL/L) 92 L Carbon Dioxide (22 - 32 MMOL/L) 19 L BUN (6 - 20 MG/DL) 24 H Creatinine (0.60 - 1.00 MG/DL) 1.22 H Estimated GFR (MDRD) (51 - 120) 53 Glucose (65 - 99 MG/DL) 424 *H POC Glucose (65 - 99 MG/DL) 411 *H Lactic Acid (0.5 - 2.2 MMOL/L) 1.5 Calcium (8.7 - 10.5 MG/DL) 9.5 Total Bilirubin (0.0 - 1.0 MG/DL) 0.7 Direct Bilirubin (0.0 - 0.3 MG/DL) 0.2 Indirect Bilirubin (0.0 - 0.7 MG/DL) 0.5 AST (15 - 37 Units/L) 14 L ALT (30 - 65 Units/L) 15 L Alkaline Phosphatase (50 - 136 Units/L) 108 Troponin I High Sens (< 51 ng/L) < 4 NT-Pro-B Natriuret Pep (0 - 125 PG/ML) 83 Total Protein (6.4 - 8.2 G/DL) 8.4 H Albumin (3.4 - 5.0 G/DL) 2.3 L Globulin (1.5 - 3.8 G/DL) 6.1 H Albumin/Globulin Ratio (1.1 - 2.2) 0.4 L Lipase (16 - 77 U/L) 23 Laboratory Tests 03/12 1941 Hematology WBC (4.80 - 10.80 x10 3/uL) 17.42 H RBC (4.2 - 5.4 x10 6/uL) 4.37 Hgb (12.0 - 16.0 G/DL) 12.6 Hct (37 - 47 %) 37.1 MCV (81 - 99 FL) 84.9 MCH (27 - 31 PG) 28.8 MCHC (33 - 37 G/DL) 34.0 RDW Coeff of [place] (11.5 - 14.5 %) 12.0 Plt Count (150 - 450 x10 3/uL) 388 MPV (7.4 - 10.4 FL) 9.0 Neut % (Auto) (42 - 86 %) 87.1 H Lymph % (Auto) (24 - 44 %) 5.5 L [place] % (Auto) (0.0 - 4.0 %) 5.7 H Eos % (Auto) (0.0 - 2.7 %) 0.0 Baso % (Auto) (0.0 - 0.5 %) 0.3 Eos # (Auto) (0.0 - 0.5 x10 3/uL) 0.00 Baso # (Auto) (0.0 - 0.2 x10 3/uL) 0.05 Abs Immat Gran (auto) (0.00 - 0.03 x10 3/uL) 0.24 H Absolute Neuts (auto) (1.8 - 7.7 x10 3/uL) 15.19 H Absolute Lymphs (auto) (1.0 - 4.8 x10 3/uL) 0.95 L Absolute Monos (auto) (0.0 - 0.8 x10 3/uL) 0.99 H Absolute Nucleated RBC (0.0 - 0.2 X10 3/uL) 0.0 Immature Gran % (0.0 - 2.0 %) 1.4 Nucleated RBC % (0.0 - 0.0 %) 0.0 Laboratory Tests 03/12 1941 Miscellaneous Miscellaneous Test Called Laboratory Tests 03/13 0148 Urines Ur Spec Description Clean Catch Urine Color (YELLOW) Light-Yellow Urine Appearance (CLEAR) CLEAR Urine pH (5.5 - 7.0) 5.5 Ur Specific [place] (1.001 - 1.035) 1.038 H Urine Protein (NEGATIVE mg/dL) 30 A Urine Glucose (UA) (NEGATIVE mg/dL) > 1000 H Urine Ketones (NEGATIVE mg/dL) > 150 A Urine Blood (NEGATIVE) TRACE Urine Nitrite (NEGATIVE) NEGATIVE Urine Bilirubin (NEGATIVE) NEGATIVE Urine Urobilinogen (NORMAL mg/dL) NORMAL Ur Leukocyte Esterase (NEGATIVE) 250 A Urine RBC (NONE SEEN #/HPF) 0-2 Urine WBC (0 - 10 #/HPF) > 50 H Ur Squamous Epith Cells (<100 #/LPF) 0 - 20 Ur Transition Epith Cell (NONE SEEN #/LPF) RARE Urine Mucus (NONE SEEN #/lpf) RARE Urine Culture Screen Criteria met Urine Comment VOLUME 10-12 ML 03/12 2050 Urines Ur Spec Description Clean Catch Urine Color (YELLOW) Light-Yellow Urine Appearance (CLEAR) Turbid Urine pH (5.5 - 7.0) 5.5 Ur Specific [place] (1.001 - 1.035) 1.032 Urine Protein (NEGATIVE mg/dL) 30 A Urine Glucose (UA) (NEGATIVE mg/dL) > 1000 H Urine Ketones (NEGATIVE mg/dL) > 150 A Urine Blood (NEGATIVE) 1+ A Urine Nitrite (NEGATIVE) NEGATIVE Urine Bilirubin (NEGATIVE) NEGATIVE Urine Urobilinogen (NORMAL mg/dL) NORMAL Ur Leukocyte Esterase (NEGATIVE) 500 A Urine WBC (0 - 10 #/HPF) > 50 H Ur Squamous Epith Cells (<100 #/LPF) > 100 A Urine Culture Screen Criteria not met Urine Comment VOLUME 10-12 ML Microbiology: 03/13 200 URINE: Urine Culture - RECD 03/13 24 FOOT: Wound Culture - CAN Cancelled: Cancelled via OE: Physician Decision 03/13 24 FOOT: Gram Stain - CAN Cancelled: Cancelled via OE: Physician Decision 03/13 0012 NARES-MRSA: MRSA Screen - ORD 03/12 1949 BLOOD: Blood Culture - RECD 03/12 1941 BLOOD: Blood Culture - RECD Radiology data: Recent Impressions: RADIOLOGY - XR FOOT 3+V RT 03/12 1850 Report Impression - Status: SIGNED Entered: 03/12/20241918 IMPRESSION: Mild soft tissue swelling seen in this patient's right foot. Electronically signed by: Jaxon Michel MD 03/12/2024 07:17 PM CDT RP Impression By: Nayely Michel MD RADIOLOGY - XR CHEST 1 V 03/12 1850 Report Impression - Status: SIGNED Entered: 03/12/20241920 IMPRESSION: Unremarkable portable examination of the chest. Electronically signed by: Jaxon Michel MD 03/12/2024 07:19 PM CDT RP Impression By: Nayely Michel MD CAT SCAN - CT LOWER EXTRM W/CON RT 03/13 0040 Report Impression - Status: SIGNED Entered: 03/13/2024 0205 IMPRESSION: 1. 2.3 x 0.8 x 0.8 cm abscess within the proximal abductor hallucis muscle in keeping with an abscess. Edema and phlegmon is seen within the adductor hallucis muscle without abscess. 2. No evidence of osteomyelitis. Electronically signed by: Jamal Rebollar MD 03/13/2024 02:02 AM CDT RP Impression By: [email or web address] - Jamal Rebollar MD Results: labs reviewed, vital signs reviewed, vital signs stable, CT results reviewed, x-ray personally reviewed, current med profile rev'd Diagnosis, Assessment Plan Problem List/A P: 1. DKA (diabetic ketoacidosis) 2. Abscess Consultants: critical/draw bench operator helper Plan discussed with: patient, nurse Critical care time: Minutes: 78 Code Status/Resusc. Discussion Resuscitation discussion: Discussed with: patient Code status: full code Free Text DxA P Notes Free Text DxA P Notes: Assessment: -Severe Sepsis -Right Foot Abscess -DKA -High Anion Gap Metabolic Acidosis -REAL/Dehydration -Pseudohyponatremia -UTI Plan: -Diabetes -Hypertension -Hyperlipidemia Plan: -Mentation is at baseline-A O x 4 -Currently on room air, satting well-maintain sats >93% -CXR independently reviewed/interpreted and reveals no acute cardiopulmonary processes -Sinus Rhythm on telemetry-no ectopy/acute ischemic changes noted -Hemodynamically stable-no pressors required -Initial blood glucose 424/large amts of serum acetone (on admission) -Urine glucose >1000/urine ketones: >150 (on admission) -Initial VBG pH 7.310/HCO3 16.7/BE -8.6 (on admission) -BMP, Mg, Phos q4h -NS bolus x 2L given in ED-start LR @ 150ml/hr -Initial Anion gap 20-calculate with labs q4h -Hgb A1C pending -Insulin gtt per protocol/FSBS q1h/hypoglycemic protocol -Febrile at home-TMax 104.0F (reported by patient) -UDS pending/UA positive for UTI -Follow-up urine/blood culturres -Abscess to right foot (unknown cause) -Right foot x-ray reveals mild soft tissue swelling -CT of right lower extremity reveals 2.3 x 0.8 x 0.8 cm abscess within the proximal abductor hallucis muscle in keeping with an abscess and no evidence of osteomyelitis -Previous hx of MRSA + wound to incision (05/29/2013) -Sart Zosyn 3.375gm IV q8h/Start start Vanco-pharmacy to dose -Strict I O -Monitor renal function and electrolytes -Correct electrolyte imbalances as needed -Avoid nephrotoxic agents -Initial Na 131 (corrected Na 136)/likely pseudohyponatremia secondary to hyperglycemia -Diet: NPO except meds/ice chips -GI: Famotidine 20mg PO daily -DVT: SCD's and hold antiplatelet/anticoagulation for possible procedure in am -Code Status: Full Code Allison Meredith 03/13/24 1519: Attestations Teaching Physician Attestation 1st visit w/o resident: I performed a history and physical examination of the patient on 03/12 in the ED and agree with the above. My independently formed assessment and plan is as follows Acute renal failure Diabetic ketoacidosis Severe sepsis Right foot abscess Uncontrolled type 2 diabetes Normocytic anemia Hypokalemia Patient's mentation appears to be at baseline, no acute neuroconcerns She is saturating well on room air Hemodynamically stable, will continue to monitor closely Vasopressors as needed to maintain MAP greater than 65 Monitor renal function closely Strict I's and O's Avoid nephrotoxic medications Continue with insulin drip Check fingerstick glucose every hour BMP, magnesium, Phos every 4 hours Transition to basal bolus regimen once the gap is closed Will start patient on broad-spectrum empiric antibiotics for the right lower extremity abscess/cellulitis Get a CT of the lower extremity to rule out osteo Start clear liquid diet and advance as tolerated DVT prophylaxis GI prophylaxis CODE STATUS to full code Prognosis guarded, admit to the ICU for close monitoring. The patient remains critically ill on an insulin drip for diabetic ketoacidosis Total critical care time spent 35 minutes, exclusive of any procedures. Critical care was necessary to treat or prevent imminent or life threatening deterioration of patient's status. at 0706 at 1901 [facility] #:[id number] END OF [id number] 22:32:00 [facility] ([facility]) OR A [facility] EMERGENCY PROVIDER REPORT REPORT#:[id number] REPORT STATUS: Signed DATE:03/12/24 TIME: 2231 PATIENT: TSERING BRAUN UNIT #: [id number] ROOM/BED: [facility] AGE: 54 SEX: F PCP PHYS: No Primary or Family Physician SERVICE AUTHOR: Kalyan Ag RIVETING MACHINE OPERATOR * ALL edits or amendments must be made on the electronic/computer document * Kalyan Ag 03/12/242231: HPI-Rash/Abscess/Cellulitis Free Text HPI Notes Free Text HPI Notes 54-year-old female chief complaint of right foot pain. On exam patient has an abscess and cellulitis to her right inner foot. Patient also notes fever and chills and nausea vomiting. Notes she is diabetic General Confirmed Patient Yes Patient Type New patient Initial Greet Date/Time 03/12/241834 Presentation Chief Complaint Abscess, Red area, Tender/swollen area Hx Obtained From Patient Symptom Duration Since onset Progression since Onset Constant Associated with Reports: Nausea, Shaking chills, Vomiting. Denies: Arthralgia, Arthritis, Bleeding. Review of Systems ROS Statements All systems rev neg except as marked. Focused Review of Systems Constitutional Denies: Chills, Fatigue, Fever, Lethargy, Malaise, Recent wt loss, Weakness - generalized. Ears/Nose/Throat Denies: Ear drainage bilat, Ear ringing bilat. GI Reports: Nausea, Vomiting. Musculoskeletal Reports: Extremity pain. Skin Reports: Abscess, Erythema, Swelling. Past Medical History - Adult Stated Complaint "I DONT KNOW HOW I HURT IT(R ANKLE) Allergies Coded Allergies: No Known Allergies (05/28/13) Home Medications Reported Medications IBUPROFEN (MOTRIN) 600 MG PO Q6H PRN SULFAMETHOXAZOLE/TMP (BACTRIM DS 800/160 MG) 1 TAB PO BID Hydrocodone/Acetaminophen (HYDROcodone/APAP 7.5/325) 1-2 TABS PO Q6HPRN Review of Nursing Notes REVIEWED Past Medical History: Reports: Diabetes mellitus. Past Surgical History: Reports: . Smoking status for patients 13 years old or older: Unknown,if ever smoked Physical Exam Vital Signs Vital Signs First Documented: Result Date Time O2 Delivery Room air 03/12 1834 Resp 14 03/12 1834 Pulse Ox 97 03/12 2028 B/P 124/71 03/12 2315 B/P Mean 91 03/12 2315 Pulse 103 03/12 2315 Temp 36.9 03/12 232 Last Documented: Result Date Time Pulse Ox 100 03/13 15 B/P 102/59 03/13 15 B/P Mean 75 03/13 0015 Pulse 96 03/13 0015 Resp 18 03/13 001 Temp 36.9 03/12 232 O2 Delivery Room air 03/12 1834 Review of Vital Signs Reviewed Focused PE General/Const General/Const Awake, Alert, No acute distress, Well appearing, Well developed , Well hydrated, Well nourished, Cooperative, Not toxic appearing Ears/Nose/Throat Ears/Nose/Throat Airway patent Mouth Mucous membranes dry. Resp/Chest Respiratory/Chest Breath sounds = bilat, No respiratory distress, No rales Cardiovascular Cardiovascular Cap refill not delayed, Peripheral circulation NL Heart Rate/Rhythm Tachycardia. MS Lower Extrem Lower Ext/Pelvis/MS Full range of motion, Neurologic intact Skin Text/Dict Notes CELLULITIS AND ABSCESS RIGHT INNER FOOT Neurologic Neurologic Oriented X3, Speech NL, No motor deficits, No sensory deficits Interpretation Diagnostics Lab Results Interpretation Results Laboratory Tests 03/12/242313: [Embedded Image Not Available] 03/12/241940: [Embedded Image Not Available] Laboratory Tests: 03/12 Chemistry Sodium (133 - 145 MMOL/L) 134 Potassium (3.6 - 5.2 MMOL/L) 4.5 Chloride (100 - 108 MMOL/L) 102 Carbon Dioxide (22 - 32 MMOL/L) 15 L BUN (6 - 20 MG/DL) 19 Creatinine (0.60 - 1.00 MG/DL) 0.92 Estimated GFR (MDRD) (51 - 120) 74 Glucose (65 - 99 MG/DL) 334 H POC Glucose (65 - 99 MG/DL) 349 H Calcium (8.7 - 10.5 MG/DL) 7.6 L Acetone (Negative) Large H Urines Ur Spec Description Clean Catch Urine Color (YELLOW) Light-Yellow Urine Appearance (CLEAR) Turbid Urine pH (5.5 - 7.0) 5.5 Ur Specific [place] (1.001 - 1.032 1.035) Urine Protein (NEGATIVE mg/dL) 30 A Urine Glucose (UA) (NEGATIVE > 1000 H mg/dL) Urine Ketones (NEGATIVE mg/dL) > 150 A Urine Blood (NEGATIVE) 1+ A Urine Nitrite (NEGATIVE) NEGATIVE Urine Bilirubin (NEGATIVE) NEGATIVE Urine Urobilinogen (NORMAL mg/dL) NORMAL Ur Leukocyte Esterase (NEGATIVE) 500 A Urine WBC (0 - 10 #/HPF) > 50 H Ur Squamous Epith Cells (<100 > 100 A #/LPF) Urine Culture Screen Criteria not met Urine Comment VOLUME 10-12 ML 03/12 1838 Chemistry Sodium (133 - 145 MMOL/L) 131 L Potassium (3.6 - 5.2 MMOL/L) 4.2 Chloride (100 - 108 MMOL/L) 92 L Carbon Dioxide (22 - 32 MMOL/L) 19 L BUN (6 - 20 MG/DL) 24 H Creatinine (0.60 - 1.00 MG/DL) 1.22 H Estimated GFR (MDRD) (51 - 120) 53 Glucose (65 - 99 MG/DL) 424 *H POC Glucose (65 - 99 MG/DL) 411 *H Lactic Acid (0.5 - 2.2 MMOL/L) 1.5 Calcium (8.7 - 10.5 MG/DL) 9.5 Total Bilirubin (0.0 - 1.0 MG/DL) 0.7 Direct Bilirubin (0.0 - 0.3 MG/DL) 0.2 Indirect Bilirubin (0.0 - 0.7 MG/DL) 0.5 AST (15 - 37 Units/L) 14 L ALT (30 - 65 Units/L) 15 L Alkaline Phosphatase (50 - 136 Units/L) 108 Troponin I High Sens (< 51 ng/L) < 4 NT-Pro-B Natriuret Pep (0 - 125 PG/ML) 83 Total Protein (6.4 - 8.2 G/DL) 8.4 H Albumin (3.4 - 5.0 G/DL) 2.3 L Globulin (1.5 - 3.8 G/DL) 6.1 H Albumin/Globulin Ratio (1.1 - 2.2) 0.4 L Lipase (16 - 77 U/L) 23 Hematology WBC (4.80 - 10.80 x10 3/uL) 17.42 H RBC (4.2 - 5.4 x10 6/uL) 4.37 Hgb (12.0 - 16.0 G/DL) 12.6 Hct (37 - 47 %) 37.1 MCV (81 - 99 FL) 84.9 MCH (27 - 31 PG) 28.8 MCHC (33 - 37 G/DL) 34.0 RDW Coeff of Ru[place] (11.5 - 14.5 %) 12.0 Plt Count (150 - 450 x10 3/uL) 388 MPV (7.4 - 10.4 FL) 9.0 Neut % (Auto) (42 - 86 %) 87.1 H Lymph % (Auto) (24 - 44 %) 5.5 L [place] % (Auto) (0.0 - 4.0 %) 5.7 H Eos % (Auto) (0.0 - 2.7 %) 0.0 Baso % (Auto) (0.0 - 0.5 %) 0.3 Eos # (Auto) (0.0 - 0.5 x10 3/uL) 0.00 Baso # (Auto) (0.0 - 0.2 x10 3/uL) 0.05 Abs Immat Gran (auto) (0.00 - 0.03 x10 3/uL) 0.24 H Absolute Neuts (auto) (1.8 - 7.7 x10 3/uL) 15.19 H Absolute Lymphs (auto) (1.0 - 4.8 x10 3/uL) 0.95 L Absolute Monos (auto) (0.0 - 0.8 x10 3/uL) 0.99 H Absolute Nucleated RBC (0.0 - 0.2 X10 3/uL) 0.0 Immature Gran % (0.0 - 2.0 %) 1.4 Nucleated RBC % (0.0 - 0.0 %) 0.0 Miscellaneous Miscellaneous Test Called Microbiology: Date/Time Procedure - Status Source Growth 03/13 12 MRSA Screen - ORD NARES-MRSA 03/12 1949 Blood Culture - RECD BLOOD 03/12 1941 Blood Culture - RECD BLOOD Recent Impressions: RADIOLOGY - XR FOOT 3+V RT 03/12 1850 Report Impression - Status: SIGNED Entered: 03/12/20241918 IMPRESSION: Mild soft tissue swelling seen in this patient's right foot. Electronically signed by: Jaxon Michel MD 03/12/2024 07:17 PM CDT RP Impression By: Nayely Michel MD RADIOLOGY - XR CHEST 1 V 03/12 1850 Report Impression - Status: SIGNED Entered: 03/12/2024 192 IMPRESSION: Unremarkable portable examination of the chest. Electronically signed by: Jaxon Michel MD 03/12/2024 07:19 PM CDT RP Impression By: Nayely Michel MD Lab Imaging Statement Laboratory radiographic studies reviewed and considered in the medical decision-making. Re-Evaluation MDM ED Course Medication(s) Ordered Medication(s) Ordered: 08:00 Sig/Jovi Start time Last Medication Dose Route Stop Time Status Admin Miscellaneous 1 EACH ASDIR 03/13 0015 CKD Information IV 03/20 2359 Anti-Infective Agents Sig/Jovi Start time Last Medication Dose Route Stop Time Status Admin Piperacillin Sod/ 3.375 GM 0200,1000,1800 03/13 0200 AC Tazobactam Sod IV 03/23 0201 Sodium Chloride 100 ML Piperacillin Sod/ 3.375 GM X1ED STA 03/12 1836 DC 03/12 Tazobactam Sod IV 03/12 190 1900 Sodium Chloride 100 ML Central Nervous System Agents Sig/Jovi Start time Last Medication Dose Route Stop Time Status Admin Morphine Sulfate 4 MG X1ED STA 03/13 0004 DC 03/13 IV 03/13 0005 0024 Electrolytic, Caloric, And Otri Sig/Jovi Start time Last Medication Dose Route Stop Time Status Admin Dextrose 16 GM ASDIR PRN 03/13 0010 AC PO 05/12 0011 Dextrose/Water 12.5 GM ASDIR PRN 03/13 0010 AC IV 05/12 0011 Sodium Chloride 250 ML ASDIR PRN 03/13 0010 AC IV 05/12 0011 Sodium Chloride 2,000 ML X1ED STA 03/12 1836 DC 03/12 IV 03/12 1935 1900 Gastrointestinal Drugs Sig/Jovi Start time Last Medication Dose Route Stop Time Status Admin Ondansetron HCl 4 MG Q4H PRN PRN 03/13 0010 AC IV 05/12 0011 Ondansetron HCl 4 MG X1ED STA 03/13 0004 DC 03/13 IV 03/13 0005 0024 Hormones And Synthetic Substit Sig/Jovi Start time Last Medication Dose Route Stop Time Status Admin Insulin Human Regular 100 ML TITRATE 03/13 0010 CKD 03/13 IV 05/12 0011 0120 Insulin Human Regular 5 UNIT X1ED STA 03/12 2231 DC 03/12 IV 03/12 2232 2257 Skin And Mucous Membrane Agent Sig/Jovi Start time Last Medication Dose Route Stop Time Status Admin Mupirocin 1 APPL BID 03/13 0900 AC NASAL 03/17 1801 Patient Discharge Departure Vital Signs/Condition Vital Signs First Documented: Result Date Time O2 Delivery Room air 03/12 1834 Resp 14 03/12 1834 Pulse Ox 97 03/12 2028 B/P 124/71 03/12 2315 B/P Mean 91 03/12 2315 Pulse 103 03/12 2315 Temp 36.9 03/12 2321 Last Documented: Result Date Time Pulse Ox 100 03/13 0015 B/P 102/59 03/13 0015 B/P Mean 75 03/13 0015 Pulse 96 03/13 0015 Resp 18 03/13 0015 Temp 36.9 03/12 2321 O2 Delivery Room air 03/12 1834 All vital signs available at the time of this entry have been reviewed. Clinical Impression Clinical Impression Primary Impression: Cellulitis Secondary Impressions: DKA (diabetic ketoacidosis) Disposition Decision Hospitalize Hosp Physician Name AllisonMasoud jackman DO [facility] Physician Hospitalist Request Time 0011 Request Date 03/13/24 )( Accepts Hospitalization Yes )( Accepted Time 001 )( Accepted Date 03/13/24 Call Information will see patient Discharge/Care Plan Counseled Regarding Diagnosis, Lab results, Imaging studies Alen Zaragoza 03/13/24 0226: Physical Exam Basic Physical Exam Basic PE HEAD: Atraumatic/NC, EYES: PERRL, conj clear, ENT: Membranes moist, NECK: Supple, RESP: No resp distress, CV: Reg rate rhythm, ABD: Soft/non- tender, EXT: No gross abnormality, NEURO: alert oriented, NEURO: gross movement NL, PSYCH: NL thought content Patient Discharge Departure Supervising Physician Note MidLv/Doc Saw Pt 1 I have personally seen the patient and I evaluated the patient along with involvement of the PA/RIVETING MACHINE OPERATOR. I agree with the PA/medical office coordinator findings and plan. I have performed all aspects of MDM as documented including: evaluation of the patient/ patient's condition(s), review and analysis of available data, and determination of risk of patient management decisions. at 0012 at 0227 RPT #:[id number] END OF [id number] 20:52:[id number] [place], [place] PATIENT NAME: TSERING BRAUN ADMIT DATE: 03/13/24 ACCOUNT NO: [id number] ROOM NO: [id number] AGE: 54 REPORT TYPE: ELECTROCARDIOGRAM SEX: F : 71 ADMITTING PHYSICIAN:Indy Toussaint MD ATTENDING PHYSICIAN:Indy Toussaint MD Order: [id number] Test Reason : CODE SEPSIS Test Date/Time Stamp: MonMar 12 2024 20:52:53 Blood Pressure : / mmHG Vent. Rate : 105 BPM Atrial Rate : 105 BPM P-R Int : 136 ms QRS Dur : 070 ms QT Int : 326 ms P-R-T Axes : 047 010 061 degrees QTc Int : 430 ms Sinus tachycardia Possible Left atrial enlargement Septal infarct , age undetermined Abnormal ECG Confirmed by ALEN ZARAGOZA DO ([id number]), staff editor AMIRAH KEITH ([id number]) on 03/14/2024 10:15:58 AM Referred By: Self Referred Confirmed by:ALEN ZARAGOZA DO at 1015 PATIENT NAME: TSERING BRAUN
[2024-07-17] MEDS ORDERED: NA CHLORIDE 0.9% 1,000 ML ONE (18:17)
[2024-07-17 18:43] LABS: Absolute Eosinophils 0.3 K/uL (0-0.5); Absolute Lymphocytes (CBC) 2.3 K/uL (0.7-4.9); Absolute Monocytes 0.4 K/uL (0.1-1.3); Basophils % 0.2 % (0-1.3); Eosinophils % 5.8 % (0-4.4); Hemoglobin 12.8 g/dL (12.0-15.0); Lymphocytes % 46.3 % (15.3-44.8); MCH 27.6 pg (27.0-35.0); MCHC 33.8 g/dL (32.0-36.0); MCV 81.6 fL (80-100); MPV 7.2 fL (7.6-11.3); Monocytes % 8.2 % (3.3-12.3); Neutrophils % 39.5 % (41.7-73.7); Platelets 196 thou/uL (152-406); RBC Red Blood Cell Count 4.65 M/uL (3.86-4.86); Red Cell Distribution Width 13.7 % (12.1-15.2)
--- NOTE | 2024-07-17 18:43 | RAD REPORT ---
EXAMINATION: ONE VIEW CHEST XR CLINICAL INDICATION: COUGH TECHNIQUE: Frontal chest projection is submitted. Examination is limited by patient positioning and t echnique. COMPARISON: No prior exam. FINDINGS: The lungs are well inflated and clear. The heart is normal in size. No displaced fractures identified . IMPRESSION: No acute intrathoracic abnormalities.
[2024-07-17 18:47] LABS: PT Prothrombin Time 10.9 SECONDS (9.4-12.5); Protime INR 0.97
[2024-07-17 19:04] LABS: ALT/SGPT 26 U/L (13-56); AST/SGOT 14 U/L (15-37); Albumin 3.6 g/dL (3.4-5.0); Albumin/Globulin Ratio 0.8 (1.1-1.8); Alkaline Phosphatase 103 U/L (45-117); Anion Gap 5.8 mEq/L (5.0-15.0); BUN Blood Urea Nitrogen 13 mg/dL (7-18); Bicarbonate 31 mEq/L (21-32); Bilirubin Total 0.4 mg/dL (0.2-1.0); Globulin 4.5 g/dL (2.3-3.5); Glomerular Filtration Rate 104 ml/min (=/>90); Glucose Level 159 mg/dL (74-106); Lipase 28 U/L (13-75); NT PRO-BNP 47 pg/mL (<125); Potassium 3.8 mEq/L (3.5-5.1); Protein, Total 8.1 g/dL (6.4-8.2); Sodium Level 138 mEq/L (136-145)
[2024-07-17 19:05] LABS: Bilirubin Direct < 0.2 mg/dL (0-0.2); Bilirubin Indirect, Calculated 0.2 mg/dL (0.2-0.8); Troponin High Sensitivity < 3.0 pg/mL (<58.9)
--- NOTE | 2024-07-17 19:19 | RAD REPORT ---
EXAM: CT brain without contrast HISTORY: PAIN COMPARISON: None TECHNIQUE: Multiple contiguous axial images were obtained and a CT of the brain without contrast. Sag ittal and coronal reformats were performed. One or more of the following dose reduction techniques were used: Automated exposure control, adjust ment of the mA and/or kV according to patient size, and/or iterative reconstruction. FINDINGS: No evidence of hydrocephalus, intracranial hemorrhage, or extra-axial fluid collection. The brain is normal in morphology. No evidence of midline shift or areas of brain edema. The calvarium is intact. Mild polypoid mucosal thickening noted in the paranasal sinuses. IMPRESSION: No evidence of acute intracranial abnormality. EXAM: CT of the cervical spine without contrast HISTORY: Neck pain, injury PAIN TECHNIQUE: Multiple contiguous axial images were obtained in a CT of the cervical spine without contr ast. Sagittal and coronal reformats were performed. FINDINGS: The vertebral bodies demonstrate normal height and alignment. No evidence of acute fracture or subluxation.. No degenerative changes are present. No prevertebral soft tissue swelling is seen. The posterior facets are well aligned. Normal alignment of the skull base with the cervical spine is seen. The lung apices are unremarkable. IMPRESSION: No evidence of acute osseous abnormality of the cervical spine.
--- NOTE | 2024-07-17 20:12 | EDPHYS ---
Physician Documentation [facility] Name: Farheen Garcia Age: 54 yrs Sex: Female : 1970 Arrival Date: 07/17/2024 Time: 17:39 Bed 17 Private MD: ED Physician Yunior Caraballo HPI: 07/17 20:04 This 54 yrs old Female presents to ER via Wheelchair with complaints of fawad Weakness, Fall Injury, Headache. 20:04 The patient presents to the emergency department with a speech or higher order brain fawad function problem, aphasia, hx of. Onset: The symptoms/episode began/occurred 1 day(s) ago. Context: occurred at an unknown location, hx of aphasia, right sided weakness.... possiblly worse since last night. Associated signs and symptoms: The patient has no apparent associated signs or symptoms. Severity of symptoms: At their worst the symptoms were mild moderate in the emergency department the symptoms are unchanged. Patient's baseline: Neuro: alert and fully oriented, Speech: hx of asphsia. Current symptoms: Currently, the patient is not experiencing any symptoms, difficult to asses pt baseline. It is unknown whether or not the patient has had similar symptoms in the past. 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 - Infectious Disease History:: Denies. - Social history:: Smoking status: Patient denies any tobacco usage or history of. ROS: 20:07 Constitutional: Negative for fever, chills, and weight loss, Eyes: Negative for injury, fawad pain, redness, and discharge, ENT: Negative for injury, pain, and discharge, Neck: Negative for injury, pain, and swelling, Cardiovascular: Negative for chest pain, palpitations, and edema, Respiratory: Negative for shortness of breath, cough, wheezing, and pleuritic chest pain, Abdomen/GI: Negative for abdominal pain, nausea, vomiting, diarrhea, and constipation, Back: Negative for injury and pain, : Negative for injury, bleeding, discharge, and swelling, MS/Extremity: Negative for injury and deformity, Skin: Negative for injury, rash, and discoloration, Psych: Negative for depression, anxiety, suicide ideation, homicidal ideation, and hallucinations, Allergy/Immunology: Negative for hives, rash, and allergies, Endocrine: Negative for neck swelling, polydipsia, polyuria, polyphagia, and marked weight changes, Hematologic/Lymphatic: Negative for swollen nodes, abnormal bleeding, and unusual bruising, 20:07 Neuro: Positive for headache, weakness, of the right eye, right cheek, right jaw, right arm and right leg, Exam: 20:07 Constitutional: This is a well developed, well nourished patient who is awake, alert, fawad and in no acute distress. Head/Face: Normocephalic, atraumatic. Eyes: Pupils equal round and reactive to light, extra-ocular motions intact. Lids and lashes normal. Conjunctiva and sclera are non-icteric and not injected. Cornea within normal limits. Periorbital areas with no swelling, redness, or edema. ENT: Nares patent. No nasal discharge, no septal abnormalities noted. Tympanic membranes are normal and external auditory canals are clear. Oropharynx with no redness, swelling, or masses, exudates, or evidence of obstruction, uvula midline. Mucous membranes moist. Neck: Trachea midline, no thyromegaly or masses palpated, and no cervical lymphadenopathy. Supple, full range of motion without nuchal rigidity, or vertebral point tenderness. No Meningismus. Chest/axilla: Normal chest wall appearance and motion. Nontender with no deformity. No lesions are appreciated. Cardiovascular: Regular rate and rhythm with a normal S1 and S2. No gallops, murmurs, or rubs. Normal PMI, no JVD. No pulse deficits. Respiratory: Lungs have equal breath sounds bilaterally, clear to auscultation and percussion. No rales, rhonchi or wheezes noted. No increased work of breathing, no retractions or nasal flaring. Abdomen/GI: Soft, non-tender, with normal bowel sounds. No distension or tympany. No guarding or rebound. No evidence of tenderness throughout. Back: No spinal tenderness. No costovertebral tenderness. Full range of motion. Skin: Warm, dry with normal turgor. Normal color with no rashes, no lesions, and no evidence of cellulitis. MS/ Extremity: Pulses equal, no cyanosis. Neurovascular intact. Full, normal range of motion. Psych: Awake, alert, with orientation to person, place and time. Behavior, mood, and affect are within normal limits. 20:07 Head/face: Noted is right face weak, right arm and leg. 20:22 ECG was reviewed by the Attending Physician. fawad Vital Signs: 18:08 BP 140 / 91; Pulse 92; Resp 17; Temp 97.3; Pulse Ox 100% on R/A; Height 5 ft. 7 in. ; ll1 Pain 9/10; 19:00 BP 123 / 67; Pulse 90; Resp 17; Pulse Ox 99% on R/A; al5 21:00 BP 97 / 57; Pulse 83; Resp 14; Pulse Ox 96% on R/A; al5 23:00 BP 105 / 59; Pulse 86; Resp 14; Pulse Ox 96% on R/A; al5 07/18 00:00 BP 93 / 49; Pulse 79; Resp 13; Pulse Ox 97% on R/A; al5 07/17 18:08 Pain Scale: Adult ll1 [place] Coma Score: 07/17 20:14 Eye Response: spontaneous(4). Motor Response: obeys commands(6). Verbal Response: fawad oriented(5). Total: 15. MDM: 17:55 Medical Screening Exam initiated fawad 18:04 Medical Screening Exam initiated fawad 20:14 Differential diagnosis: cervical epidural bleed, cerebral vascular accident, fawad hyponatremia, migraine, subarachnoid bleed, subdural hematoma, temporal arteritis, tension headache, trigeminal neuralgia. Differential Diagnosis altered mental status, sepsis, flu. Differential diagnosis: closed head injury, contusion, fracture, laceration, multiple trauma, sprain, strain. Data reviewed: vital signs, nurses notes, lab test result(s), EKG, radiologic studies, CT scan, plain films. I considered the following discharge prescriptions or medication management in the emergency department Medications were administered in the Emergency Department. See MAR. Independent interpretation of the following test(s) in the Emergency Department EKG: See my EKG interpretation above. ED course: onset of perez, and worsening condition was yesterday, many deficits present before fall in tub last night, no a TNK CANDIDATE. 07/17 17:59 Order name: Basic Metabolic Panel; Complete Time: 19:53 [facility] 07/17 17:59 Order name: CBC with Diff; Complete Time: 19:53 [facility] 07/17 17:59 Order name: LFT's; Complete Time: 19:53 [facility] 07/17 17:59 Order name: Magnesium; Complete Time: 19:53 [facility] 07/17 17:59 Order name: NT PRO-BNP; Complete Time: 19:53 [facility] 07/17 17:59 Order name: PT-INR; Complete Time: 19:53 [facility] 07/17 17:59 Order name: Troponin HS; Complete Time: 19:53 [facility] 07/17 17:59 Order name: Lipase; Complete Time: 19:53 [facility] 07/17 17:59 Order name: Urinalysis w/ reflexes [facility] 07/17 21:18 Order name: Urine Culture [facility] 07/17 22:55 Order name: Urinalysis w/ reflexes [facility] 07/17 22:55 Order name: CBC with Automated Diff [facility] 07/17 22:55 Order name: CBC with Automated Diff [facility] 07/17 22:55 Order name: Comprehensive Metabolic Panel [facility] 07/17 22:55 Order name: Comprehensive Metabolic Panel [facility] 07/18 13:27 Order name: Glucose, Ancillary Testing [facility] 07/17 17:59 Order name: XRAY Chest (1 view); Complete Time: 19:53 [facility] 07/17 17:59 Order name: CT Head C Spine; Complete Time: 19:53 [facility] 07/17 20:02 Order name: CT Neck Angio [facility] 07/17 20:02 Order name: CT Chest, Abdomen, Pelvis - W/Contrast [facility] 07/17 20:18 Order name: Head angio [facility] 07/18 12:26 Order name: MRI [facility] 07/17 17:59 Order name: EKG; Complete Time: 18:00 [facility] 07/17 22:55 Order name: CONS Physician Consult [facility] 07/17 17:59 Order name: Cardiac monitoring; Complete Time: 18:17 [facility] 07/17 17:59 Order name: EKG - Nurse/Tech; Complete Time: 18:38 [facility] 07/17 17:59 Order name: IV Saline Lock; Complete Time: 18:38 [facility] 07/17 17:59 Order name: Labs collected and sent; Complete Time: 18:38 [facility] 07/17 17:59 Order name: O2 Per Protocol; Complete Time: 18:17 [facility] 07/17 17:59 Order name: O2 Sat Monitoring; Complete Time: 18:17 fawad EC:22 Rate is 86 beats/min. Rhythm is regular. QRS Emerson is Normal. VA interval is normal. QRS fawad interval is normal. QT interval is normal. No Q waves. T waves are Normal. No ST changes noted. Clinical impression: Normal ECG and No evidence of ischemia. Interpreted by me. Reviewed by me. Administered Medications: 18:38 Drug: NS 0.9% IV 1000 ml IV at 1000 ml once; to be given as a bolus over 60 minutes mb9 Route: IV; Rate: 1000 ml; Site: right antecubital; 21:00 Follow up: Response: No adverse reaction; IV Status: Completed infusion; IV Intake: al5 1000ml 23:31 Drug: foLIC Acid IVPB 1 mg IVPB once Route: IVPB; Site: right antecubital; al5 23:42 Follow up: Response: No adverse reaction; IV Intake: 1ml al5 23:44 Follow up: IV Status: Completed infusion al5 23:31 Drug: Aspirin PO Chewable Tablet 162 mg PO once Route: PO; al5 07/18 05:48 Follow up: Response: No adverse reaction; Pain is decreased al5 07/17 23:31 Drug: Acetaminophen PO 650 mg PO once Route: PO; al5 07/18 00:00 Follow up: Response: No adverse reaction; Pain is decreased al5 07/17 23:31 Drug: Rocephin IV 1 grams IV at per protocol once; Given slow IV push per pharmacy al5 instructions Route: IV; Rate: per protocol; Site: right antecubital; 23:43 Follow up: Response: No adverse reaction; IV Status: Completed infusion; IV Intake: 26mblv9 23:42 Drug: Banana Bag - (Multivitamin IV 1 amp, NS 0.9% IV 1000 ml, Thiamine IV 100 mg, al5 foLIC Acid IVPB 1 mg) IV at 125 ml/hr once Route: IV; Rate: 125 ml/hr; Site: right antecubital; 07/18 05:49 Follow up: Response: No adverse reaction; IV Status: Infusion continued upon admission al5 Disposition Summary: 07/17/24 20:11 Hospitalization Ordered Notes: Hospitalization Status: Inpatient Admission fawad Provider: Hollis Selby fawad Condition: Fair fawad Problem: new fawad Symptoms: have improved fawad Bed/Room Type: Standard fawad Location: Telemetry/MedSurg (Inpatient)(07/18/24 13:31) Room Assignment: [facility](07/18/24 13:31) Diagnosis - Weakness fawad - Fall on same level, unspecified fawad - Headache fawad - Aphasia fawad Forms: - Medication Reconciliation Form fawad - SBAR form fawad - Leadership Thank You Letter fawad Signatures: Dispatcher [employer] EDMS Yunior Caraballo MD MD cha Blanchard, Shelby RN RN Perlita Farley RN RN lg3 King Owens RN RN ll1 Viviane Kim RN RN mb9 Cheyenne Owens RN RN al5 Corrections: (The following items were deleted from the chart) 07/17 18:00 18:00 BASIC METABOLIC PANEL+C.LAB.BRZ ordered. EDMS EDMS 18:00 18:00 CBC+H.LAB.BRZ ordered. EDMS EDMS 18:00 18:00 HEPATIC FUNCTION+C.LAB.BRZ ordered. EDMS EDMS 18:00 18:00 MAGNESIUM+C.LAB.BRZ ordered. EDMS EDMS 18:00 18:00 PROBNP+C.LAB.BRZ ordered. EDMS EDMS 18:00 18:00 PROTIME (+INR)+COAG.LAB.BRZ ordered. EDMS EDMS 18:00 18:00 Troponin High Sensitivity+C.LAB.BRZ ordered. EDMS EDMS 18:00 18:00 LIPASE+C.LAB.BRZ ordered. EDMS EDMS 18:00 18:00 Urinalysis+U.LAB.BRZ ordered. EDMS EDMS 18:03 18:01 Allergies: No Known Allergies; ll1 ll1 20:03 20:03 Chest Abdomen Pelvis W Con+CT.RAD.BRZ ordered. EDMS EDMS 21:23 20:11 Telemetry/MedSurg (Inpatient) fawad lg3 21:23 20:11 fawad lg3 07/18 13:31 07/17 21:23 [facility] ER HOLD lg3 ss 07/18 13:31 07/17 21:23 ERHOLD- lg3 ss
--- NOTE | 2024-07-17 20:12 | ER ---
Nurse's Notes [facility] Name: Farheen Garcia Age: 54 yrs Sex: Female : 1970 Arrival Date: 07/17/2024 Time: 17:39 Bed 17 Private MD: Diagnosis: Weakness;Fall on same level, unspecified;Headache;Aphasia Presentation: 07/17 18:03 Coronavirus screen: Client denies travel out of the [place] in the last 14 days. At this ll1 time, the client does not indicate any symptoms associated with coronavirus-19. Ebola Screen: Patient denies travel to an Ebola-affected area in the 21 days before illness onset. No acute neurological deficit is noted. Initial Sepsis Screen: Does the patient meet any 2 criteria? No. Patient's initial sepsis screen is negative. Does the patient have a suspected source of infection? No. Patient's initial sepsis screen is negative. Risk Assessment: Do you want to hurt yourself or someone else? Patient reports no desire to harm self or others. Onset of symptoms was July 16, 2024. 18:03 Method Of Arrival: Wheelchair ll1 18:03 Acuity: PRANAY 3 ll1 18:08 Chief complaint: Patient states: R sided ESPINOZA and weakness started last night with a fall ll1 at home. Sent in for evaluation by Dr. Holcomb. No fever. Triage Assessment: 18:10 The onset of the patients symptoms was more than six hours ago. General: Appears ll1 uncomfortable, Behavior is calm, cooperative, appropriate for age. Pain: Complains of pain in R sided ESPINOZA Pain currently is 9 out of 10 on a pain scale. Quality of pain is described as aching. Neuro: Reports headache numbness in R face weakness. Musculoskeletal: Reports. 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 - Infectious Disease History:: Denies. - Social history:: Smoking status: Patient denies any tobacco usage or history of. Screenin:40 [facility] ED Fall Risk Assessment (Adult) History of falling in the last 3 months, mb9 including since admission No falls in past 3 months (0 pts) Confusion or Disorientation No (0 pts) Intoxicated or Sedated No (0 pts) Impaired Gait No (0 pts) Mobility Assist Device Used No (0 pt) Altered Elimination No (0 pt) Score/Fall Risk Level 0 - 2 = Low Risk Oriented to surroundings, Maintained a safe environment, Educated pt \\T\\ family on fall prevention, incl call for assistance when getting out of bed. Abuse screen: Denies threats or abuse. Nutritional screening: No deficits noted. Tuberculosis screening: No symptoms or risk factors identified. 07/18 00:00 Ester Swallow Protocol Brief Cognitive Screen What is your name? Normal, Where are you al5 right now? Normal, What year is it? Normal. Oral Mechanism Examination Facial Symmetry: hx of r sided stroke, r sided facial droop normal for patient Motion: Normal, Lip Closure: Normal, 3 oz Water Swallow Challenge: Pt able to drink all water without stopping, coughing, choking or throat clearing: Yes Result: PASS. Assessment: 07/17 18:39 General: Appears in no apparent distress. Behavior is calm, cooperative. Pain: mb9 Complains of pain in right side of head Pain does not radiate. Pain currently is 8 out of 10 on a pain scale. Quality of pain is described as throbbing, Pain began 1 day ago. Is continuous. Neuro: Medel Agitation-Sedation Scale (RASS): 0 - Alert and Calm Level of Consciousness is awake, alert, obeys commands, Oriented to person, place, time, situation, Appropriate for age Rn Documentation Specialist are equal bilaterally Moves all extremities. Gait is steady, Speech is normal, Facial symmetry appears normal, Pupils are PERRLA, Intact Reports headache in right parietal area. Cardiovascular: Heart tones S1 S2 present Patient's skin is warm and dry. Rhythm is regular. Respiratory: Airway is patent Respiratory effort is even, unlabored, Respiratory pattern is regular, symmetrical. GI: No signs and/or symptoms were reported involving the gastrointestinal system. : No signs and/or symptoms were reported regarding the genitourinary system. EENT: No signs and/or symptoms were reported regarding the EENT system. Derm: Skin is pink, warm \\T\\ dry. Musculoskeletal: Range of motion: intact in all extremities. 19:20 General: Appears in no apparent distress. Behavior is calm, cooperative. Pain: al5 Complains of pain in head. 19:20 Neuro: Level of Consciousness is awake, obeys commands, Oriented to person, place, al5 time, situation, Moves all extremities. r sided weakness due to previous stroke. patient hx of r sided facial droop, is patient normal. Cardiovascular: Capillary refill < 3 seconds Patient's skin is warm and dry. Respiratory: Airway is patent Respiratory effort is even, unlabored, Respiratory pattern is regular, symmetrical. GI: No signs and/or symptoms were reported involving the gastrointestinal system. : No signs and/or symptoms were reported regarding the genitourinary system. EENT: No signs and/or symptoms were reported regarding the EENT system. Derm: Skin is intact, Skin is pink, warm \\T\\ dry. normal. Musculoskeletal: r sided weakness due to previous stroke. 21:00 Reassessment: Patient appears in no apparent distress at this time. No changes from al5 previously documented assessment. Patient and/or family updated on plan of care and expected duration. Pain level reassessed. Patient is alert, oriented x 3, equal unlabored respirations, skin warm/dry/pink. 23:00 Reassessment: Patient appears in no apparent distress at this time. No changes from al5 previously documented assessment. Patient and/or family updated on plan of care and expected duration. Pain level reassessed. Patient is alert, oriented x 3, equal unlabored respirations, skin warm/dry/pink. 07/18 00:00 Reassessment: Patient appears in no apparent distress at this time. No changes from al5 previously documented assessment. Patient and/or family updated on plan of care and expected duration. Pain level reassessed. Patient is alert, oriented x 3, equal unlabored respirations, skin warm/dry/pink. Vital Signs: 07/17 18:08 BP 140 / 91; Pulse 92; Resp 17; Temp 97.3; Pulse Ox 100% on R/A; Height 5 ft. 7 in. ; ll1 Pain 9/10; 19:00 BP 123 / 67; Pulse 90; Resp 17; Pulse Ox 99% on R/A; al5 21:00 BP 97 / 57; Pulse 83; Resp 14; Pulse Ox 96% on R/A; al5 23:00 BP 105 / 59; Pulse 86; Resp 14; Pulse Ox 96% on R/A; al5 07/18 00:00 BP 93 / 49; Pulse 79; Resp 13; Pulse Ox 97% on R/A; al5 07/17 18:08 Pain Scale: Adult ll1 [place] Coma Score: 07/17 20:14 Eye Response: spontaneous(4). Motor Response: obeys commands(6). Verbal Response: fawad oriented(5). Total: 15. ED Course: 17:48 Patient arrived in ED. mg5 17:55 Yunior Caraballo MD is Attending Physician. fawad 18:03 Arm band placed on Patient placed in an exam room, on a stretcher. ll1 18:04 Triage completed. ll1 18:17 Viviane Kim, RN is Primary Nurse. mb9 18:38 Initial lab(s) drawn, by me, sent to lab. EKG done, by ED staff, reviewed by Yunior Caraballo MD. Inserted saline lock: 20 gauge in right antecubital area, using aseptic technique. Blood collected. Flushed with 10 mL NS. 18:39 XRAY Chest (1 view) In Process Unspecified. EDMS 18:40 Bed in low position. Call light in reach. Side rails up X 1. Provided Education on: antolin press call light if needing anything. Client placed on continuous cardiac and pulse oximetry monitoring. NIBP monitoring applied. surveillance system monitor on. Door closed. Noise minimized. Warm blanket given. Pillow given. 18:41 No provider procedures requiring assistance completed. mb9 19:03 Report given to JOSE A Quinn. mb9 19:14 CT Head C Spine In Process Unspecified. EDMS 20:10 Hollis Selby MD is Hospitalizing Provider. fawad 20:48 CT Neck Angio In Process Unspecified. EDMS 20:48 CT Chest, Abdomen, Pelvis - W/Contrast In Process Unspecified. EDMS 20:49 Head angio In Process Unspecified. EDMS 07/18 00:00 Patient admitted, IV remains in place. al5 13:41 341 CM met briefly with Ms. Garcia at the bedside in the ED exam room. Patient identified ane by name and . Patient stated "I want to go home" CM asked if it would be ok if CM reach out to son. Patient replied yes and explained that she really just wanted to go home but that it would be best if CM speak with her son Sakshi Garcia. 1643 CM called Sakshi at [phone] and received no answer or voice mail. 1646 CM spoke to Sakshi Garcia at [phone]. Demographic sheet confirmed. Sakshi states his Mom, , lives with his younger sister in [facility] in a ground floor apartment. He states that prior to admission, she performs ADLs independently using a walker and sometimes a wheelchair, however is still able to drive and was performing her own wound care on her foot. Dr. Gus Holcomb is her PCP, and to his knowledge, she does not have an MPOA in place. The preferred plan is for to return home upon discharge and Sakshi states he will 's transportation home. CM team will continue to follow and coordinate care during this hospital stay. Administered Medications: 07/17 18:38 Drug: NS 0.9% IV 1000 ml IV at 1000 ml once; to be given as a bolus over 60 minutes mb9 Route: IV; Rate: 1000 ml; Site: right antecubital; 21:00 Follow up: Response: No adverse reaction; IV Status: Completed infusion; IV Intake: al5 1000ml 23:31 Drug: foLIC Acid IVPB 1 mg IVPB once Route: IVPB; Site: right antecubital; al5 23:42 Follow up: Response: No adverse reaction; IV Intake: 1ml al5 23:44 Follow up: IV Status: Completed infusion al5 23:31 Drug: Aspirin PO Chewable Tablet 162 mg PO once Route: PO; al5 07/18 05:48 Follow up: Response: No adverse reaction; Pain is decreased al5 07/17 23:31 Drug: Acetaminophen PO 650 mg PO once Route: PO; al5 07/18 00:00 Follow up: Response: No adverse reaction; Pain is decreased al5 07/17 23:31 Drug: Rocephin IV 1 grams IV at per protocol once; Given slow IV push per pharmacy al5 instructions Route: IV; Rate: per protocol; Site: right antecubital; 23:43 Follow up: Response: No adverse reaction; IV Status: Completed infusion; IV Intake: [id number] 23:42 Drug: Banana Bag - (Multivitamin IV 1 amp, NS 0.9% IV 1000 ml, Thiamine IV 100 mg, al5 foLIC Acid IVPB 1 mg) IV at 125 ml/hr once Route: IV; Rate: 125 ml/hr; Site: right antecubital; 07/18 05:49 Follow up: Response: No adverse reaction; IV Status: Infusion continued upon admission al5 Medication: 07/17 18:41 VIS not applicable for this client. mb9 Intake: 21:00 IV: 1000ml; Total: 1000ml. al5 23:42 IV: 1ml; Total: 1001ml. al5 23:43 IV: 50ml; Total: 1051ml. al5 Outcome: 20:11 Decision to Hospitalize by Provider. fawad 07/18 00:00 Admitted to ER Hold. Please see [facility] for further documentation. al5 Condition: good Instructed on the need for admit, 14:18 Patient left the ED. ll1 Signatures: Dispatcher [employer] EDYunior Weathers MD MD cha Lewis, Lynsay, RN RN ll1 Viivane Kim RN RN mb9 Kerry Mistry Amanda, RN RN al5 Sujatha Alexandre RN RN ane Corrections: (The following items were deleted from the chart) 07/17 18:03 18:01 Allergies: No Known Allergies; ll1 ll1
--- NOTE | 2024-07-17 21:02 | RAD REPORT ---
EXAMINATION: CTA HEAD CLINICAL INDICATION: Fall TECHNIQUE: Axial CT images were obtained through the head after intravenous contrast utilizing angiog raphic protocol with 3D post-processing (maximum intensity projection images, volume rendered images and/or shaded surface rendered images). One or more of the following dose reduction technique s were used: Automated exposure control, adjustment of the mA and/or kV according to patient size, and/or iterative reconstruction. Unless otherwise specified, incidental findings do not require dedic ated imaging follow-up. COMPARISON: No prior exam. FINDINGS: ICA: The petrous, cavernous, and supraclinoid segments of the bilateral internal carotid arteries are normal. The ophthalmic artery origins are visualized and normal. The posterior communicating arteries are patent. ERA: Anterior cerebral arteries are normal bilaterally. The anterior communicating artery is patent. MCA: Middle cerebral arteries are normal bilaterally. 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 Vertebrobasilar: The vertebral arteries are patent. The basilar artery is normal in appearance. 3D images confirm these findings. IMPRESSION: No significant flow abnormality is identified.
--- NOTE | 2024-07-17 21:06 | RAD REPORT ---
EXAM: CT CHEST, ABDOMEN AND PELVIS WITH CONTRAST CLINICAL INDICATION: Pain;Trauma TECHNIQUE: CT chest, abdomen and pelvis was performed, following the administration of contrast, as p er department protocol. Axial, sagittal and coronal reconstructions were obtained. One or more of the following dose reduction techniques were used: Automated exposure control, adjustment of the mA a nd/or kV according to patient size, and/or iterative reconstruction. Unless otherwise specified, incidental findings do not require dedicated imaging follow-up. COMPARISON: No prior exam. FINDINGS: LUNGS: No evidence of airspace or interstitial process. No nodules. PLEURA: No pleural effusion. No pneumothorax. MEDIASTINUM AND LYMPH NODES: No mediastinal mass or fluid collection. Normal size mediastinal, hilar, and axillary lymph nodes. OSSEOUS STRUCTURES AND CHEST WALL: Intact. LIVER: Normal in size and contour. No focal lesion or biliary dilatation. Grossly unremarkable gallbl adder. PANCREAS: No mass, ductal dilation, or kvng-pancreatic fluid. SPLEEN: Normal size. No focal lesion. ADRENALS: Normal; no mass. KIDNEYS: Normal size and contour. No hydronephrosis. URINARY BLADDER: Asymmetric wall thickening with the right urinary bladder wall measuring up to 10 mm . GASTROINTESTINAL TRACT: No bowel obstruction, free air, significant free fluid or abscess. APPENDIX: Appendix not visualized, but no inflammatory changes in region of appendix. LYMPH NODES: No lymphadenopathy. MUSCULOSKELETAL: No acute or suspicious osseous abnormality. OTHER: Moderate fat-containing ventral hernia along the midline. IMPRESSION: No acute or significant abnormalities seen in the chest, abdomen or pelvis. Asymmetric urinary bladder wall thickening. Consider nonemergent direct visualization with cystoscopy .
--- NOTE | 2024-07-17 21:09 | RAD REPORT ---
EXAMINATION: CTA NECK CLINICAL INDICATION: PAIN TECHNIQUE: Axial CT images were obtained from the aortic arch to the skull base after intravenous con trast utilizing angiographic protocol with 3D post-processing (maximum intensity projection images, volume rendered images and/or shaded surface rendered images). One or more of the following dose redu ction techniques were used: Automated exposure control, adjustment of the mA and/or kV according to patient size, and/or iterative reconstruction. Unless otherwise specified, incidental findings do not require dedicated imaging follow-up. COMPARISON: No prior exam. FINDINGS: AORTA: The imaged aortic arch is normal. CCA: The common carotid arteries are patent and normal in caliber. ICA/ECA: Mild hard plaque is seen right carotid bulb. No significant internal carotid artery stenosis . VERTEBRAL: The cervical vertebral arteries are patent. The vertebral arteries are codominant. SOFT TISSUE: No significant neck soft tissue abnormalities. The visualized lung apices are clear. 3D images confirm these findings. IMPRESSION: No significant stenosis of the neck vessels is identified. Mild plaque right carotid bulb NASCET criteria used. Mild 0-49% stenosis Moderate 50-69% stenosis Severe 70-99% stenosis
--- NOTE | 2024-07-17 22:47 | P.HP ---
Certification for Inpatient Patient admitted to: Inpatient With expected LOS: >2 Midnights Practitioner: I am a practitioner with admitting privileges, knowledge of patient current condition, hospital course, and medical plan of care. Services: Services provided to patient in accordance with Admission requirements found in Title 42 Section 412.3 of the Code of Federal Regulations Patient History Date of Service: 07/18/24 Reason for admission: Generalized weakness History of Present Illness: 54 yrs old Female with past medical history of hypertension, hyperlipidemia, previous CVA with residual weakness, aphasia who was brought to ER with generalized weakness, headache, fall injury. The patient presents to the emergency department with a slurring of speech and more weakness which began yesterday and has been progressively getting worse. She has also right sided weakness. possiblly worse since last night. Denies any headache or nausea or vomiting. No fever or chills. No sick contacts. Patient cannot offer much history hence most of the history is obtained from chart review and also talking to the family member at the bedside Patient was assessed in the ER and was admitted for further management and workup. Allergies josiah Allergy (Verified 07/17/24 22:59) Hives/Rash - Past Medical/Surgical History -: CVA Past Surgical History: Reviewed- Non-Contributory - Family History Family History: Reviewed- Non-Contributory - Social History Smoking Status: Never smoker Review of Systems is unable to be obtained Physical Examination - Vital Signs Temperature: 97.2 F Blood Pressure: 136/78 Pulse: 76 Respirations: 18 Pulse Ox (%): 94 - Physical Exam General: Alert, Cooperative, Mild distress HEENT: Atraumatic, Normocephalic Neck: Supple Respiratory: Clear to auscultation bilaterally, Normal air movement Cardiovascular: Regular rate/rhythm, Normal S1 S2 Capillary refill: <2 Seconds Gastrointestinal: Soft and benign, W/out hepatosplenomegaly Musculoskeletal: No clubbing, No swelling Integumentary: No rashes, No tenderness/swelling Neurological: Other (Alert, awake), Abnormal gait, Abnormal speech, Abnormal strength, Abnormal tone, Abnormal sensation, Abnormal cranial nerve function, Abnormal reflexes Lymphatics: No axilla or inguinal lymphadenopathy - Studies Laboratory Data (last 24 hrs) 07/17/24 07/17/24 07/17/24 18:33 18:33 18:33 WBC 5.00 Hgb 12.8 Hct 38.0 Plt Count 196 PT 10.9 INR 0.97 Sodium 138 Potassium 3.8 BUN 13 Creatinine 0.69 Glucose 159 H Magnesium 2.0 Total Bilirubin 0.4 AST 14 L ALT 26 Alkaline Phosphatase 103 Lipase 28 Assessment and Plan - Plan To rule out CVA/TIA Stroke workup Patient has history of CVA with aphasia and focal weakness Baseline focal weakness Started on aspirin and statin CT CTA findings noted and negative MRI brain ordered Monitor neuro vital signs Monitor under telemetry Neurology evaluation PT evaluation Hypertension Antihypertensives titrated Continue home medications and titrate as needed Hyperlipidemia Continue statin GI/DVT prophylaxis Advanced directive full code Discharge Plan: Home Plan to discharge in: 48 Hours - Advance Directives Does patient have a Living Will: No Does patient have a Durable POA for Healthcare: No - Code Status/Comfort Care Code Status: Full Code Time Spent Managing Pts Care (In Minutes): 48
[2024-07-17] MEDS ORDERED: ACETAMINOPHEN 325 MG TABLET PO PRN (22:49)
[2024-07-17] MEDS ORDERED: ONDANSETRON 4 MG/2 ML VIAL IV PRN (22:49)
[2024-07-17] MEDS ORDERED: ASPIRIN 81 MG CHEWABLE TABLET ONE (23:06)
[2024-07-17] MEDS ORDERED: THIAMINE 200 MG/2 ML INJ ONE (23:06)
[2024-07-17] MEDS ORDERED: MULTIVITAMINS 10 ML VIAL (INJ) IV ONE (23:07)
[2024-07-17] MEDS ORDERED: FOLIC ACID 5 MG/ML VIAL ONE (23:08)
[2024-07-17] MEDS ORDERED: NA CHLORIDE 0.9% 50 ML ONE (23:09)
[2024-07-17] MEDS ORDERED: CEFTRIAXONE 1000 MG/VIAL ONE (23:09)
[2024-07-17 23:55] LABS: Specific Gravity 1.012 (1.005-1.030); Urine Bilirubin NEGATIVE (Negative); Urine Blood Negative (Negative); Urine Clarity Clear (Clear); Urine Color Light-Yellow (Yellow); Urine Glucose 1+ (Negative); Urine Ketones NEGATIVE (Negative); Urine Microscopic Reflex YN NO UMIC; Urine Nitrite NEGATIVE (Negative); Urine Protein NEGATIVE (Negative); Urine Urobilinogen Normal (Normal); Urine pH 5.5 (5.0-7.0)
[2024-07-18] MEDS ORDERED: NA CHLORIDE 0.9% 1,000 ML ONE (05:22)
[2024-07-18] MEDS: NA CHLORIDE 0.9% 1,000 ML IV SCH (05:26)
[2024-07-18 06:19] VITALS: BMI 29.4
[2024-07-18 06:30] VITALS: O2SAT 97
[2024-07-18] MEDS ORDERED: CEFTRIAXONE 1000 MG/VIAL ONE (07:27)
[2024-07-18] MEDS ORDERED: ASPIRIN 81 MG CHEWABLE TABLET ONE (07:28)
[2024-07-18] MEDS ORDERED: ENOXAPARIN 40 MG/0.4 ML SQ ONE (07:28)
[2024-07-18 07:38] LABS: Absolute Eosinophils 0.2 K/uL (0-0.5); Absolute Lymphocytes (CBC) 2.1 K/uL (0.7-4.9); Absolute Monocytes 0.3 K/uL (0.1-1.3); Absolute Neutrophil 1.4 K/uL (1.8-8.0); Basophils % 0.3 % (0-1.3); Eosinophils % 5.8 % (0-4.4); Hematocrit 33.4 % (36.0-45.0); Hemoglobin 11.4 g/dL (12.0-15.0); Lymphocytes % 50.9 % (15.3-44.8); MCH 27.7 pg (27.0-35.0); MCV 81.5 fL (80-100); MPV 7.6 fL (7.6-11.3); Nucleated Red Blood Cells % 0.1 % (0-0); Platelets 179 thou/uL (152-406); RBC Red Blood Cell Count 4.09 M/uL (3.86-4.86); Red Cell Distribution Width 13.3 % (12.1-15.2)
[2024-07-18 07:55] LABS: Albumin 2.9 g/dL (3.4-5.0); Albumin/Globulin Ratio 0.8 (1.1-1.8); Anion Gap 6.6 mEq/L (5.0-15.0); Bilirubin Total 0.4 mg/dL (0.2-1.0); Globulin 3.8 g/dL (2.3-3.5); Potassium 3.6 mEq/L (3.5-5.1); Protein, Total 6.7 g/dL (6.4-8.2)
[2024-07-18] MEDS: CEFTRIAXONE 1,000 MG in NA CHLORIDE 0.9% 50 ML IVPB SCH (08:31)
[2024-07-18] MEDS: ASPIRIN EC 81 MG TAB PO SCH (09:00)
[2024-07-18] MEDS: ENOXAPARIN 40 MG/0.4 ML SQ SCH (09:00)
--- NOTE | 2024-07-18 11:50 | EKG ---
Test Date: 2024-07-17 Test Time: 18:30:07 Flaker Tender: MB MEASUREMENT RESULTS: Intervals: Rate: 86 SD: 144 QRSD: 72 QT: 378 QTc: 452 [place]: P: 63 SD: 144 QRS: 32 T: 73 INTERPRETIVE STATEMENTS: Normal sinus rhythm Normal ECG No previous ECG available for comparison Electronically Signed On 07-18-24 11:50:01 CDT by Damián Omalley
[2024-07-18 12:08] VITALS: BP 110/61; TEMP 98.4
--- NOTE | 2024-07-18 12:25 | RAD REPORT ---
EXAMINATION: MRI BRAIN WITHOUT CONTRAST CLINICAL INDICATION: Female, 54 years old.[facility] CVA TECHNIQUE: Multiplanar multisequence MR images of the brain were obtained without intravenous contras t. Unless otherwise specified, incidental findings do not require dedicated imaging follow-up. COMPARISON: Noncontrast head CT and CT angiogram 07/17/2024 FINDINGS: INTRACRANIAL: Midline structures are unremarkable. Diffusion-weighted images show no acute or early subacute infarction. No abnormal brain parenchymal signal. The ventricles are normal in size and morphology. No augmented susceptibility signal abnormality. There is no mass effect or midline shift. No abnormal extraaxial fluid collection. VASCULATURE: Normal signal voids in the larger intracranial arteries and dural venous sinuses. SINUSES: The paranasal sinuses show patchy fluid opacification and inflammatory mucosal thickening. M astoid air cells are clear. BONE: The marrow signal pattern is within normal limits. IMPRESSION: No significant intracranial abnormalities.
[2024-07-18] MEDS: FLU (Fluarix Triv) TS24-25(6MOS UP)/PF 45 MCG/0.5 ML Syringe IM ONE (15:16)
[2024-07-18] MEDS ORDERED: ATORVASTATIN 40 MG TAB PO SCH (21:00)
== END 2024-07-18 18:15 | disposition left against medical advice (07) | DRG 948 ==
LOC: ER 17:39 → ERHOLD 22:49 → 2ND 07-18 13:55
PROVIDERS: ADMIT Family Medicine; ATTEND Internal Medicine
DX: R53.1 Weakness (principal); E78.00 Pure hypercholesterolemia, unspecified; I69.320 Aphasia following cerebral infarction; R47.81 Slurred speech; Z53.29 Procedure and treatment not carried out because of patient's decision for other reasons
CPT/HCPCS: 36415; 70450; 70496; 70498; 70551; 71045; 71260; 72125; 74177; 80048; 80053; 80076; 81003; 82947; 83690; 83735; 83880; 84484; 85025; 85610; 93005; 94760; 96361; 96365; 96366; 96375; 99285; J0696; J1650; J3411; J7030; Q9967